=== PATIENT | female | born 1970 | race Caucasian/White ===

== ENCOUNTER 2017-03-27 10:07 | Inpatient (IN) | payer MEDICAID, MEDICARE ==
[2017-03-27] MEDS ORDERED: NORMAL SALINE 1000 ML 1,000 ML IV ONE (11:44)
--- NOTE | 2017-03-27 11:48 | ER Document Report ---
ED Head/Face/Scalp Injury - General Chief Complaint: Facial Injury Stated Complaint: ALTERED MENTAL STATUS Time Seen by Provider: 03/27/17 11:02 Notes: The patient is a 46-year-old female, past medical history chronic alcoholism ( drinks 0.5 gallons of whiskey a day), presents by EMS after she tripped last night while drinking, fell and hit her face. Her woke up this morning, saw bleeding from her nose and mouth and called 911. Patient is altered and slow to respond. She is also feeling tremulous. Patient is a poor historian and unable to provide any additional history. TRAVEL OUTSIDE OF THE [place] 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 Denies: Hx Hiatal Hernia, Hx Pancreatitis, Hx Ulcer Musculoskeltal Medical History: Denies Hx Arthritis Psychiatric Medical History: Reports: Hx Depression Denies: Hx Bipolar Disorder, Hx Schizophrenia Traumatic Medical History: Reports: Hx Fractures - R. leg. Pt. has a steel debi. Past Surgical History: Reports: Hx Appendectomy, Hx Cholecystectomy, Hx Orthopedic Surgery - right knee, Hx Tonsillectomy, Hx Tubal Ligation. Denies: Hx Bowel Surgery, Hx Section, Hx Hysterectomy, Hx Mastectomy - Immunizations Hx Diphtheria, Pertussis, Tetanus Vaccination: No Hx Pneumococcal Vaccination: 05/05/11 Review of Systems - Review of Systems -: Yes ROS unobtainable due to patient's medical condition Physical Exam - Vital signs Vitals: Pulse Ox 92 03/27/17 10:28 - Notes Notes: PHYSICAL EXAMINATION: GENERAL: Confused, tachypneic, tremulous HEAD: Atraumatic, normocephalic. EYES: Pupils equal round and reactive to light, extraocular movements intact, sclera anicteric, conjunctiva are normal. ENT: nares patent, oropharynx clear without exudates. Moist mucous membranes. NECK: Normal range of motion, supple without lymphadenopathy LUNGS: Tachypneic, Crackles in left lower lung gutierrez. HEART: Tachycardia, regular rhythm ABDOMEN: Soft, nontender, normoactive bowel sounds. No guarding, no rebound. No masses appreciated. EXTREMITIES: Normal range of motion, no pitting or edema. No cyanosis. NEUROLOGICAL: Confused, slow to respond, alert and oriented x2, tremors present SKIN: Warm, Dry, normal turgor, no rashes or lesions noted. Course - Re-evaluation Re-evalutation: Patient appears confused with tachycardia and hypertension. She says that she normally drinks a heavy amount of alcohol daily. Her alcohol is negative this morning. CT head and face do not show any acute bleeds or fractures. Her CIWA score is 16. She was given Ativan with some relief of her tremors. Patient also with a left lower lobe pneumonia, leukocytosis and tachypnea, but no hypoxia. CAP Abx started and she does not require 30 mL/kg because she is not in septic shock, With patient's elevated CIWA score, pneumonia and AMS, she requires inpatient admission for further evaluation and treatment of her AMS and alcohol withdrawal symptoms. 03/27/17 15:[address] Clayton and will admit patient to [facility] as Inpatient. - Vital Signs Vital signs: Temp Pulse Resp BP Pulse Ox 98.3 F 40 H 154/103 H 94 03/27/17 13:47 03/27/17 13:47 03/27/17 13:47 03/27/17 13:47 - Laboratory Result Diagrams: 03/27/17 10:49 03/27/17 10:49 Laboratory results interpreted by me: 03/27/17 03/27/17 03/27/17 10:49 10:49 13:13 WBC 19.8 H MCH 33.8 H Seg Neutrophils % 83.2 H Lymphocytes % 11.5 L Absolute Neutrophils 16.5 H Potassium 2.8 L* Glucose 127 H Direct Bilirubin 0.5 H AST 113 H ALT 59 H Urine Protein >=500 H Urine Ketones TRACE H Urine Blood MODERATE H Urine Urobilinogen 2.0 H Ur Leukocyte Esterase TRACE H - Diagnostic Test Radiology reviewed: Image reviewed, Reports reviewed Radiology results interpreted by me: CXR: Left lower lobe pneumonia. Widened mediastinum most likely related to technique Critical Care Note - Critical Care Note Total time excluding time spent on procedures (mins): 35 Discharge - Discharge Clinical Impression: Alcohol withdrawal delirium, Hypokalemia Pneumonia Qualifiers: Pneumonia type: due to unspecified organism Laterality: left Lung location: lower lobe of lung Qualified Code(s): J18.1 - Lobar pneumonia, unspecified organism Altered mental status Qualifiers: Altered mental status type: unspecified Qualified Code(s): R41.82 - Altered mental status, unspecified Sepsis Qualifiers: Sepsis type: sepsis due to unspecified organism Qualified Code(s): A41.9 - Sepsis, unspecified organism Contusion of face Qualifiers: Encounter type: initial encounter Qualified Code(s): S00.83XA - Contusion of other part of head, initial encounter Condition: Stable Disposition: ADMITTED INPATIENT Admitting Provider: [facility] [place] [facility] Admitted: I[facility]U Referrals: BERNIE SAVAGE MD [Primary Care Provider] - Follow up as needed
--- NOTE | 2017-03-27 11:53 | RADIOLOGY REPORT (SQ) ---
EXAM DESCRIPTION: CT HEAD WITHOUT COMPLETED DATE/TIME: 03/27/2017 11:32 am REASON FOR STUDY: fall, AMS COMPARISON: [address] brain exams since 01/05/2009, most recently 06/05/2015 TECHNIQUE: Axial images acquired through the brain without intravenous contrast. Images reviewed wi th bone, brain and subdural windows. Images stored on PACS. All CT scanners at this facility use dose modulation, iterative reconstruction, and/or weight based d osing when appropriate to reduce radiation dose to as low as reasonably achievable (ALARA). [facility]: Dose Right [facility]: CareDose [facility]: Dose Right [facility]: Teradose 4D [facility]: Smart [employer] RADIATION DOSE: CT Rad equipment meets quality standard of care and radiation dose reduction techniq ues were employed. CTDIvol: 64.6 mGy. DLP: 1163 mGy-cm. mGy. LIMITATIONS: None. FINDINGS: VENTRICLES: Normal size and contour. CEREBRUM: No masses. No hemorrhage. No midline shift. No evidence for acute infarction. Normal gra y/white matter differentiation. No areas of low density in the white matter. CEREBELLUM: No masses. No hemorrhage. No alteration of density. No evidence for acute infarction. EXTRAAXIAL SPACES: No fluid collections. No masses. ORBITS AND GLOBE: No intra- or extraconal masses. Normal contour of globe without masses. CALVARIUM: No fracture. PARANASAL SINUSES: Mucus or serous retention cyst right maxillary sinus SOFT TISSUES: No mass or hematoma. OTHER: No other significant finding. IMPRESSION: NORMAL BRAIN CT WITHOUT CONTRAST. EVIDENCE OF ACUTE STROKE: NO. COMMENT: Quality ID # [id number]: Final reports with documentation of one or more dose reduction techniques (e.g., Automated exposure control, adjustment of the mA and/or kV according to patient size, use of iterative reconstruction technique) TECHNICAL DOCUMENTATION: JOB ID: [id number] [employer]- All Rights Reserved
[2017-03-27 11:55] LABS: ABSOLUTE BASOPHILS # (AUTO) 0.1 10^3/uL (0.0-0.2); ABSOLUTE LYMPHOCYTES (AUTO) 2.3 10^3/uL (0.5-4.7); ABSOLUTE NEUT (AUTO) 16.5 10^3/uL (1.7-8.2); BASOPHILS % (AUTO) 0.4 % (0-2); EOSINOPHILS % (AUTO) 0.1 % (0-6); HEMATOCRIT 41.4 % (36.0-47.0); HEMOGLOBIN 14.5 g/dL (12.0-15.5); LYMPHOCYTES % (AUTO) 11.5 % (13-45); MEAN CORPUSCULAR HEMOGLOBIN 33.8 pg (27.0-33.4); MEAN CORPUSCULAR HGB CONC 35.1 g/dL (32.0-36.0); MEAN CORPUSCULAR VOLUME 96 fl (80-97); MONOCYTES % (AUTO) 4.8 % (3-13); PLATELET COUNT 248 10^3/uL (150-450); RED CELL DISTRIBUTION WIDTH 13.4 % (11.5-14.0); SEGMENTED NEUTROPHILS % (AUTO) 83.2 % (42-78); TOTAL CELLS COUNTED % (AUTO) 100 %; WHITE BLOOD COUNT 19.8 10^3/uL (4.0-10.5)
--- NOTE | 2017-03-27 11:56 | RADIOLOGY REPORT (SQ) ---
EXAM DESCRIPTION: CT FACIAL AREA WITHOUT COMPLETED DATE/TIME: 03/27/2017 11:32 am REASON FOR STUDY: fall, AMS COMPARISON: Multiple previous CT brain exams since 2008, most recently today TECHNIQUE: Noncontrasted images through the facial bones and orbits windowed for bone and soft tissu e. Additional coronal and sagittal reconstructed images reviewed. All images stored on PACS. All CT scanners at this facility use dose modulation, iterative reconstruction, and/or weight based d osing when appropriate to reduce radiation dose to as low as reasonably achievable (ALARA). [facility]: Dose Right [facility]: CareDose [facility]: Dose Right [facility]: Teradose 4D [facility]: Smart [employer] RADIATION DOSE: CT Rad equipment meets quality standard of care and radiation dose reduction techniq ues were employed. CTDIvol: 30.4 mGy. DLP: 522 mGy-cm. mGy. LIMITATIONS: None. FINDINGS: FACIAL BONES: No fracture or bone lesion. ORBITS: Intact. No fracture. Symmetric intact globes and retroorbital soft tissues. PARANASAL SINUSES: Mucus or serous retention cyst floor right maxillary sinus No nasal polyps. Maxil jake sinus outlets are patent. SOFT TISSUES: No mass or edema. INFERIOR BRAIN: Limited view. No acute findings. OTHER: No other significant finding. IMPRESSION: NO ACUTE FINDINGS. TECHNICAL DOCUMENTATION: JOB ID: [id number] Quality ID # [id number]: Final reports with documentation of one or more dose reduction techniques (e.g., Au tomated exposure control, adjustment of the mA and/or kV according to patient size, use of iterative reconstruction technique) 2010 [employer]- All Rights Reserved
[2017-03-27 12:20] LABS: ALANINE AMINOTRANSFERASE 59 U/L (9-52); ALBUMIN 3.8 g/dL (3.5-5.0); ALCOHOL < 10 mg/dL (NONE DETECTED); ALKALINE PHOSPHATASE 83 U/L (38-126); ANION GAP 14 (5-19); ASPARTATE AMINO TRANSFERASE 113 U/L (14-36); BILIRUBIN,DIRECT 0.5 mg/dL (0.0-0.4); BILIRUBIN,TOTAL 0.9 mg/dL (0.2-1.3); BLOOD UREA NITROGEN 15 mg/dL (7-20); CALCIUM 8.8 mg/dL (8.4-10.2); CARBON DIOXIDE 28 mmol/L (22-30); CHLORIDE 98 mmol/L (98-107); GLUCOSE 127 mg/dL (75-110); SODIUM 139.7 mmol/L (137-145); TOTAL PROTEIN 7.8 g/dL (6.3-8.2)
[2017-03-27 12:26] LABS: POTASSIUM 2.8 mmol/L (3.6-5.0)
[2017-03-27 12:45] LABS: VENOUS BLOOD BASE EXCESS 1.7 mmol/L; VENOUS BLOOD HCO3 26.5 mmol/L (20-32); VENOUS BLOOD PCO2 42.7 mmHg (35-63); VENOUS BLOOD PH 7.41 (7.30-7.42)
[2017-03-27] MEDS ORDERED: LORAZEPAM INJ 2 MG/1 ML VIAL IV ONE ×2 (13:13→16:15)
[2017-03-27 13:34] LABS: APPEARANCE,URINE CLOUDY; BILIRUBIN,URINE NEGATIVE (NEGATIVE); COLOR,URINE AMBER; GLUCOSE, URINE NEGATIVE (NEGATIVE); KETONES,URINE TRACE mg/dL (NEGATIVE); LEUKOCYTE ESTERASE,URINE TRACE (NEGATIVE); NITRITE,URINE NEGATIVE (NEGATIVE); PROTEIN,URINE >=500 mg/dL (NEGATIVE); URINE SPECIFIC GRAVITY 1.019
[2017-03-27 13:52] LABS: URINE AMPHETAMINES SCREEN NEGATIVE; URINE BARBITURATES SCREEN NEGATIVE; URINE BENZODIAZEPINES SCREEN UNCONFIRMED POSITIVE; URINE COCAINE SCREEN NEGATIVE; URINE MARIJUANA (THC) SCREEN NEGATIVE; URINE METHADONE SCREEN NEGATIVE; URINE PHENCYCLIDINE SCREEN NEGATIVE
[2017-03-27] MEDS: POTASSI CL 20 MEQ/50 ML RIDER 20 MEQ/50 ML RTUPB IV SCH ×4 (14:07→23:02)
[2017-03-27] MEDS ORDERED: CEFTRIAXONE 1 GM/D5W RTU 1 GM/50 ML RTUPB IV ONE (14:18)
--- NOTE | 2017-03-27 15:07 | RADIOLOGY REPORT (SQ) ---
EXAM DESCRIPTION: CHEST SINGLE VIEW COMPLETED DATE/TIME: 03/27/2017 2:42 pm REASON FOR STUDY: sepsis, tachypnea COMPARISON: 06/06/2015 NUMBER OF VIEWS: One view. TECHNIQUE: Single frontal radiographic image of the chest acquired. LIMITATIONS: Poor inspiratory effort. Positioning. FINDINGS: LUNGS AND PLEURA: Subsegmental airspace disease in the left lower lobe. MEDIASTINUM AND HEART: Widening of the mediastinum which is most likely due to technique and low lung volumes. BONY STRUCTURES: No acute findings. HARDWARE: None. OTHER: No other significant finding. IMPRESSION: Left lower lobe pneumonia. Widening of the mediastinum is likely secondary to technique . TECHNICAL DOCUMENTATION: JOB ID: [id number]
[2017-03-27] MEDS ORDERED: AZITHROMYCIN INJ 500 MG VIAL IV ONE (15:10)
[2017-03-27] MEDS ORDERED: CEFTRIAXONE SODIUM 1,000 MG in NORMAL SALINE 50 ML IV ONE (16:00)
[2017-03-27] MEDS ORDERED: DEXTROSE 40% GEL 15 GM TUBE PO PRN ×2 (16:50)
[2017-03-27] MEDS ORDERED: IPRATROPIUM/ALBUTEROL 0.5-2.5 MG/3 ML AMPUL NEB PRN (16:50)
[2017-03-27] MEDS ORDERED: DEXTROSE 50%-WATER 25 GM/50 ML DISP.SYRIN IV PRN ×2 (16:50)
[2017-03-27] MEDS ORDERED: GLUCAGON,HUMAN RECOMB 1 MG INJ SUBCUT PRN (16:50)
[2017-03-27] MEDS ORDERED: ONDANSETRON 4 MG TAB.RAPDIS PO PRN (16:50)
[2017-03-27] MEDS ORDERED: ALBUTEROL SULFATE HFA (90 MCG/PUFF) 200 PUFF/8.5 GM MDI IH PRN (17:53)
--- NOTE | 2017-03-27 17:53 | RADIOLOGY REPORT (SQ) ---
EXAM DESCRIPTION: CT CHEST WITHOUT COMPLETED DATE/TIME: 03/27/2017 5:38 pm REASON FOR STUDY: Respiratory Failure COMPARISON: Chest radiograph, CT 2012. TECHNIQUE: CT scan performed of the chest without intravenous contrast. Images reviewed with lung, soft tissue and bone windows. Reconstructed coronal and sagittal MPR images reviewed. All images st ored on PACS. All CT scanners at this facility use dose modulation, iterative reconstruction, and/or weight based d osing when appropriate to reduce radiation dose to as low as reasonably achievable (ALARA). [facility]: Dose Right [facility]: CareDose [facility]: Dose Right [facility]: Teradose 4D [facility]: [employer] RADIATION DOSE: CT Rad equipment meets quality standard of care and radiation dose reduction techniq ues were employed. CTDIvol: 19.6 mGy. DLP: 713 mGy-cm. mGy. LIMITATIONS: No technical limitations. FINDINGS: LUNGS AND PLEURA: Parenchymal opacity in the right upper lobe with air bronchograms most l ikely infiltrate. Minimal basilar infiltrates bilateral. No effusions. HILAR AND MEDIASTINAL STRUCTURES: No identified masses or abnormal nodes. No obvious aneurysm. HEART AND VASCULAR STRUCTURES: No aneurysm. No pericardial effusion. UPPER ABDOMEN: No significant findings. Limited exam. THYROID AND OTHER SOFT TISSUES: No masses. No adenopathy. BONES: No significant finding. HARDWARE: None in the chest. OTHER: No other significant findings. IMPRESSION: Right upper lobe and bibasilar pneumonia. TECHNICAL DOCUMENTATION: JOB ID: [id number] Quality ID # [id number]: Final reports with documentation of one or more dose reduction techniques (e.g., Au tomated exposure control, adjustment of the mA and/or kV according to patient size, use of iterative reconstruction technique) 2010 [employer]- All Rights Reserved
--- NOTE | 2017-03-27 17:55 | PDOC H&P ---
History of Present Illness Admission Date/PCP: 03/27/17 15:45 BERNIE SAVAGE MD Patient complains of: Patient found intoxicated and brought in by family History of Present Illness: FABIANA HEAD is a 46 year old female presents to the emergency room after family bring in patient and due to be in intoxicated and not feeling well. Patient during my encounter was not able to give complete history appear to be intoxicated. Patient reports that she has not been feeling well and has fever. Patient then fell back to sleep on awakening patient would try to give history but not able to understand. Nursing reports the patient fell at home and has injured her left ankle. 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, Hypertension Denies: Atrial Fibrillation, Congestive Heart Failure, Hyperlipidema, Heart Murmur Pulmonary Medical History: Reports: Asthma, Chronic Obstructive Pulmonary Disease (COPD) Denies: Bronchitis, Pneumonia, Respiratory Failure, Sleep Apnea, Tuberculosis Neurological Medical History: Reports: Seizures GI Medical History: Reports: Gastroesophageal Reflux Disease Denies: Hiatal Hernia Musculoskeltal Medical History: Denies: Arthritis Psychiatric Medical History: Reports: Depression Denies: Bipolar Disorder Past Surgical History Past Surgical History: Reports: Appendectomy, Cholecystectomy, Orthopedic Surgery - right knee, Tonsillectomy, Tubal Ligation Denies: Amputation, Section, Hysterectomy, Mastectomy Social History Information Source: Patient, Emergency Med Personnel Lives with: Family Smoking Status: Unknown if Ever Smoked Frequency of Alcohol Use: Occasional Hx Recreational Drug Use: No Hx Prescription Drug Abuse: No - Advance Directive Resuscitation Status: Full Code Family History Family History: Reviewed & Not Pertinent Parental Family History Reviewed: No Children Family History Reviewed: No Sibling(s) Family History Reviewed.: No Medication/Allergy Home Medications: Albuterol Sulfate [Proair HFA Inhalation Aerosol 8.5 gm MDI] 2 puff IH Q6HP PRN 03/27/17 Alprazolam [Xanax 0.5 mg Tablet] 0.5 mg PO Q8HP PRN 03/27/17 Clonidine HCl [Catapres 0.1 mg Tablet] 0.1 mg PO Q12 03/27/17 Hydrochlorothiazide [Hydrodiuril 25 mg Tablet] 25 mg PO DAILY 03/27/17 Levothyroxine Sodium [Synthroid 0.088 mg Tablet] 0.088 mg PO Q6AM 03/27/17 Lurasidone HCl [Latuda] 20 mg PO [id number] 03/27/17 Sertraline HCl [Zoloft] 150 mg PO DAILY 03/27/17 Allergies/Adverse Reactions: No Known Allergies Allergy (Verified 06/08/14 00:01) Review of Systems ROS unobtainable: Due to mental status Constitutional: PRESENT: fever(s) Respiratory: PRESENT: cough Musculoskeletal: PRESENT: other - Left ankle pain Physical Exam Vital Signs: Temp Pulse Resp BP Pulse Ox 98.3 F 42 H 164/110 H 92 03/27/17 13:47 03/27/17 15:01 03/27/17 15:01 03/27/17 15:01 General appearance: PRESENT: mild distress, morbidly obese, well-nourished Head exam: PRESENT: atraumatic, normocephalic Eye exam: PRESENT: conjunctiva pink, EOMI. ABSENT: scleral icterus Ear exam: PRESENT: normal external ear exam Mouth exam: PRESENT: moist, tongue midline Neck exam: ABSENT: carotid bruit, JVD, lymphadenopathy, thyromegaly Respiratory exam: PRESENT: accessory muscle use, wheezes. ABSENT: rales, rhonchi Cardiovascular exam: PRESENT: RRR. ABSENT: diastolic murmur, rubs, systolic murmur Pulses: PRESENT: normal dorsalis pedis pul Vascular exam: PRESENT: normal capillary refill GI/Abdominal exam: PRESENT: normal bowel sounds, soft. ABSENT: distended, guarding, mass, organolmegaly, rebound, tenderness Rectal exam: PRESENT: deferred Extremities exam: PRESENT: other - Left Ankle swelling with tenderness to palpation. ABSENT: calf tenderness, clubbing, pedal edema Musculoskeletal exam: PRESENT: tenderness - Left ankle tenderness Neurological exam: PRESENT: altered. ABSENT: motor sensory deficit Psychiatric exam: PRESENT: other - Sleeping will open eyes when stimulated Skin exam: PRESENT: other - 2 abrasions noted on left side of face Results Impressions: Facial Bones CT 03/27/17 11:02 IMPRESSION: NO ACUTE FINDINGS. Head CT 03/27/17 11:02 IMPRESSION: NORMAL BRAIN CT WITHOUT CONTRAST. EVIDENCE OF ACUTE STROKE: NO. Chest X-Ray 03/27/17 14:19 IMPRESSION: Left lower lobe pneumonia. Widening of the mediastinum is likely secondary to technique. Assessment & Plan - Diagnosis (1) Sepsis Qualifiers: Sepsis type: sepsis due to unspecified organism Qualified Code(s): A41.9 - Sepsis, unspecified organism Is this a current diagnosis for this admission?: Yes Plan: (Pneumonia, tachypnea, tachycardia, elevated white blood cell count, and altered mental status). Secondary Aspiriation Pneumonia: Zosyn. Will check CT of Chest. (2) Acute metabolic encephalopathy Is this a current diagnosis for this admission?: Yes Plan: Secondary to ETOH Withdrawal and Sepsis: Will continue supportive care. Ammonia. (3) Alcohol withdrawal delirium Is this a current diagnosis for this admission?: Yes Plan: Will place on Ativan and Rally bag. (4) Left ankle pain Qualifiers: Chronicity: acute Qualified Code(s): M25.572 - Pain in left ankle and joints of left foot Is this a current diagnosis for this admission?: Yes Plan: Will check x-ray of ankle. (5) Hypokalemia Is this a current diagnosis for this admission?: Yes Plan: Patient given potassium replacement in the ER will check potassium in a.m. and magnesium as well. (6) Pneumonia Qualifiers: Pneumonia type: due to unspecified organism Laterality: left Lung location: lower lobe of lung Qualified Code(s): J18.1 - Lobar pneumonia, unspecified organism Is this a current diagnosis for this admission?: Yes Plan: Continue Zosyn (7) Fall Qualifiers: Encounter type: initial encounter Qualified Code(s): W19.XXXA - Unspecified fall, initial encounter Is this a current diagnosis for this admission?: Yes Plan: Patient work with PT OT (8) Leukocytosis Is this a current diagnosis for this admission?: Yes Plan: Secondary to Sepsis: Zosyn. (9) Elevated LFTs Is this a current diagnosis for this admission?: Yes Plan: Secondary ETOH: U/S of ABD. Will continue monitor. (10) DVT prophylaxis Is this a current diagnosis for this admission?: Yes Plan: SCDs - Time Time Spent: 30 to 50 Minutes
--- NOTE | 2017-03-27 17:57 | RADIOLOGY REPORT (SQ) ---
EXAM DESCRIPTION: ANKLE LEFT COMPLETE COMPLETED DATE/TIME: 03/27/2017 5:49 pm REASON FOR STUDY: left ankle pain COMPARISON: May 2014 NUMBER OF VIEWS: Three views. TECHNIQUE: AP, lateral, and oblique radiographic images acquired of the left ankle. LIMITATIONS: None. FINDINGS: MINERALIZATION: Normal. BONES: No acute fracture or dislocation. Small bony protuberance is identified at the level of the m edial malleolus which was present on the previous study and could represent a tiny osteo chondroma. JOINTS: No effusions. SOFT TISSUES: Soft tissue swelling is seen OTHER: Plantar spurring is again identified IMPRESSION: No acute fracture dislocation. Other findings as noted above TECHNICAL DOCUMENTATION: JOB ID: [id number] [employer]- All Rights Reserved
[2017-03-27 19:06] LABS: ARTERIAL BLOOD BASE EXCESS 4.7 mmol/L; ARTERIAL BLOOD H2CO3 1.02 mmol/L (1.05-1.35); ARTERIAL BLOOD HCO3 27.3 mmol/L (20-26); ARTERIAL BLOOD O2 SATURATION 96.7 % (94-98); ARTERIAL BLOOD PCO2 33.8 mmHg (35-45); ARTERIAL BLOOD PH 7.53 (7.35-7.45); ARTERIAL BLOOD PO2 77.9 mmHg (80-100); ARTERIAL BLOOD TOTAL CO2 28.3 mmol/L (21-25)
[2017-03-27 19:07] LABS: ARTERIAL BLOOD FIO2 2
[2017-03-27] MEDS ORDERED: NORMAL SALINE 1000 ML 1,000 ML with POTASSIUM CHLORIDE 20 MEQ, MAGNESIUM SULFATE 8 MEQ,... IV SCH ×5 (20:00)
[2017-03-27] MEDS: PIPERACILLIN SODIUM/TAZOBACTAM 3.375 GM in NORMAL SALINE 100 ML IV SCH ×2 (20:42→23:13)
[2017-03-27] MEDS: CLONIDINE HCL 0.1 MG TABLET PO SCH (21:37)
[2017-03-27] MEDS: LORAZEPAM INJ 2 MG/1 ML VIAL IV PRN (22:26)
--- NOTE | 2017-03-27 22:48 | EKG REPORT ---
SEVERITY:- ABNORMAL ECG - SINUS TACHYCARDIA BORDERLINE INFERIOR Q WAVES ABNORMAL T, CONSIDER ISCHEMIA, DIFFUSE LEADS : Confirmed by: Hudson Alegria 27-Mar-2017 22:47:53
[2017-03-28] MEDS: NORMAL SALINE 1000 ML 1,000 ML with POTASSIUM CHLORIDE 20 MEQ, MAGNESIUM SULFATE 8 MEQ,... IV SCH ×10 (01:10→22:53)
[2017-03-28] MEDS: NORMAL SALINE 1000 ML 1,000 ML IV PRN (01:12)
[2017-03-28] MEDS: LORAZEPAM INJ 2 MG/1 ML VIAL IV PRN (02:07)
[2017-03-28] MEDS: LEVOTHYROXINE SODIUM 0.088 MG TABLET PO SCH (05:35)
[2017-03-28] MEDS: PIPERACILLIN SODIUM/TAZOBACTAM 3.375 GM in NORMAL SALINE 100 ML IV SCH ×3 (05:43→18:16)
[2017-03-28] MEDS: LANSOPRAZOLE 15 MG TAB.RAP.DR PO SCH (05:43)
[2017-03-28 07:39] LABS: ABSOLUTE BASOPHILS # (AUTO) 0.1 10^3/uL (0.0-0.2); ABSOLUTE EOSINOPHILS # (AUTO) 0.1 10^3/uL (0.0-0.6); ABSOLUTE LYMPHOCYTES (AUTO) 1.5 10^3/uL (0.5-4.7); ABSOLUTE MONOCYTES (AUTO) 0.8 10^3/uL (0.1-1.4); ABSOLUTE NEUT (AUTO) 9.5 10^3/uL (1.7-8.2); BASOPHILS % (AUTO) 0.8 % (0-2); EOSINOPHILS % (AUTO) 1.1 % (0-6); HEMATOCRIT 34.8 % (36.0-47.0); LYMPHOCYTES % (AUTO) 12.7 % (13-45); MEAN CORPUSCULAR HEMOGLOBIN 33.8 pg (27.0-33.4); MEAN CORPUSCULAR HGB CONC 34.7 g/dL (32.0-36.0); MEAN CORPUSCULAR VOLUME 98 fl (80-97); PLATELET COUNT 177 10^3/uL (150-450); RED BLOOD COUNT 3.57 10^6/uL (3.72-5.28); RED CELL DISTRIBUTION WIDTH 13.5 % (11.5-14.0); SEGMENTED NEUTROPHILS % (AUTO) 78.4 % (42-78); TOTAL CELLS COUNTED % (AUTO) 100 %; WHITE BLOOD COUNT 12.1 10^3/uL (4.0-10.5)
[2017-03-28 07:45] LABS: HEMOGLOBIN 12.1 g/dL (12.0-15.5)
[2017-03-28 07:57] LABS: ALANINE AMINOTRANSFERASE 50 U/L (9-52); ALBUMIN 2.9 g/dL (3.5-5.0); ALKALINE PHOSPHATASE 62 U/L (38-126); ANION GAP 6 (5-19); ASPARTATE AMINO TRANSFERASE 76 U/L (14-36); BILIRUBIN,DIRECT 0.5 mg/dL (0.0-0.4); BLOOD UREA NITROGEN 13 mg/dL (7-20); CALCIUM 7.3 mg/dL (8.4-10.2); CARBON DIOXIDE 26 mmol/L (22-30); CHLORIDE 110 mmol/L (98-107); GLUCOSE 106 mg/dL (75-110); POTASSIUM 3.1 mmol/L (3.6-5.0); SODIUM 141.5 mmol/L (137-145); TOTAL PROTEIN 6.1 g/dL (6.3-8.2)
[2017-03-28] MEDS ORDERED: (PENDING PHARMACY ID) (Lurasidone Hcl [Latuda] 20 MG) PO SCH (08:00)
[2017-03-28 08:07] LABS: MAGNESIUM 1.1 mg/dL (1.6-2.3)
[2017-03-28] MEDS ORDERED: POTASSIUM CHLORIDE 20 MEQ/15 ML UDCUP PO ONE ×2 (09:30→20:15)
[2017-03-28] MEDS ORDERED: CEFTRIAXONE 1 GM/D5W RTU 1 GM/50 ML RTUPB IV SCH (10:00)
[2017-03-28] MEDS: SERTRALINE HCL 50 MG TABLET PO SCH (10:05)
[2017-03-28] MEDS: LURASIDONE HCL 40 MG TABLET PO SCH (10:06)
[2017-03-28] MEDS: CLONIDINE HCL 0.1 MG TABLET PO SCH ×2 (10:06→22:53)
[2017-03-28] MEDS: MAGNESIUM SULFATE/D5W 1 GM/100 ML RTUPB IV SCH ×3 (10:07→14:31)
[2017-03-28 17:38] LABS: ANION GAP 9 (5-19); BLOOD UREA NITROGEN 11 mg/dL (7-20); CALCIUM 7.4 mg/dL (8.4-10.2); CARBON DIOXIDE 25 mmol/L (22-30); CHLORIDE 109 mmol/L (98-107); GLUCOSE 117 mg/dL (75-110); POTASSIUM 3.3 mmol/L (3.6-5.0); SODIUM 142.7 mmol/L (137-145)
[2017-03-28 17:46] LABS: MAGNESIUM 2.1 mg/dL (1.6-2.3)
[2017-03-28] MEDS ORDERED: CEFTRIAXONE SODIUM 1,000 MG in NORMAL SALINE 50 ML IV SCH (18:00)
[2017-03-28] MEDS ORDERED: AZITHROMYCIN 500 MG in DEXTROSE 5%-WATER 250 ML IV SCH (20:00)
--- NOTE | 2017-03-28 20:05 | PDOC PROGRESS REPORT ---
Subjective Progress Note for:: 03/28/17 Subjective:: Pt states that she has been feeling better. Nursing states that she is concerned about her swallowing. Nursing reported that pt Magnesium and potassium is low. Reason For Visit: ASPIRATION PNEUMONIA,ETOH WITHDRAWAL Physical Exam Vital Signs: Temp Pulse Resp BP Pulse Ox 99.0 F 85 22 H 144/93 H 99 03/28/17 16:09 03/28/17 16:09 03/28/17 16:09 03/28/17 16:09 03/28/17 16:09 Intake & Output 03/27/17 03/28/17 03/29/17 06:59 06:59 06:59 Intake Total 353 1500 Output Total 300 950 Balance 53 550 Weight 102.4 kg General appearance: PRESENT: disheveled, morbidly obese, well-developed, well- nourished Head exam: PRESENT: atraumatic, normocephalic Eye exam: PRESENT: conjunctiva pink, EOMI. ABSENT: scleral icterus Ear exam: PRESENT: normal external ear exam Mouth exam: PRESENT: moist, tongue midline Neck exam: ABSENT: carotid bruit, JVD, lymphadenopathy, thyromegaly Respiratory exam: PRESENT: clear to auscultation thomas. ABSENT: rales, rhonchi, wheezes Cardiovascular exam: PRESENT: RRR. ABSENT: diastolic murmur, rubs, systolic murmur Pulses: PRESENT: normal dorsalis pedis pul Vascular exam: PRESENT: normal capillary refill GI/Abdominal exam: PRESENT: normal bowel sounds, soft. ABSENT: distended, guarding, mass, organolmegaly, rebound, tenderness Rectal exam: PRESENT: deferred Extremities exam: PRESENT: full ROM. ABSENT: calf tenderness, clubbing, pedal edema Musculoskeletal exam: PRESENT: full ROM Neurological exam: PRESENT: awake, oriented to person Psychiatric exam: PRESENT: flat affect Skin exam: PRESENT: dry, intact, warm. ABSENT: cyanosis, rash Results Laboratory Results: 03/28/17 07:13 03/28/17 17:00 03/28/17 03/28/17 03/28/17 07:13 07:13 07:13 WBC 12.1 H RBC 3.57 L Hgb 12.1 D Hct 34.8 L MCV 98 H MCH 33.8 H MCHC 34.7 RDW 13.5 Plt Count 177 Seg Neutrophils % 78.4 H Lymphocytes % 12.7 L Monocytes % 7.0 Eosinophils % 1.1 Basophils % 0.8 Absolute Neutrophils 9.5 H Absolute Lymphocytes 1.5 Absolute Monocytes 0.8 Absolute Eosinophils 0.1 Absolute Basophils 0.1 Sodium 141.5 Potassium 3.1 L Chloride 110 H Carbon Dioxide 26 Anion Gap 6 BUN 13 Creatinine 0.59 Est GFR ( Amer) > 60 Est GFR (Non-Af Amer) > 60 Glucose 106 Calcium 7.3 L Magnesium 1.1 L* Total Bilirubin 1.0 AST 76 H ALT 50 Alkaline Phosphatase 62 Ammonia 15.9 Total Protein 6.1 L Albumin 2.9 L 03/28/17 17:00 WBC RBC Hgb Hct MCV MCH MCHC RDW Plt Count Seg Neutrophils % Lymphocytes % Monocytes % Eosinophils % Basophils % Absolute Neutrophils Absolute Lymphocytes Absolute Monocytes Absolute Eosinophils Absolute Basophils Sodium 142.7 Potassium 3.3 L Chloride 109 H Carbon Dioxide 25 Anion Gap 9 BUN 11 Creatinine 0.51 L Est GFR ( Amer) > 60 Est GFR (Non-Af Amer) > 60 Glucose 117 H Calcium 7.4 L Magnesium 2.1 D Total Bilirubin AST ALT Alkaline Phosphatase Ammonia Total Protein Albumin Impressions: Ankle X-Ray 03/27/17 00:00 IMPRESSION: No acute fracture dislocation. Other findings as noted above Chest CT 03/27/17 00:00 IMPRESSION: Right upper lobe and bibasilar pneumonia. Facial Bones CT 03/27/17 11:02 IMPRESSION: NO ACUTE FINDINGS. Head CT 03/27/17 11:02 IMPRESSION: NORMAL BRAIN CT WITHOUT CONTRAST. EVIDENCE OF ACUTE STROKE: NO. Chest X-Ray 03/27/17 14:19 IMPRESSION: Left lower lobe pneumonia. Widening of the mediastinum is likely secondary to technique. Assessment & Plan - Diagnosis (1) Sepsis Qualifiers: Sepsis type: sepsis due to unspecified organism Qualified Code(s): A41.9 - Sepsis, unspecified organism Is this a current diagnosis for this admission?: Yes Plan: (Pneumonia, tachypnea, tachycardia, elevated white blood cell count, and altered mental status). Secondary Aspiriation Pneumonia: Zosyn. CT demonstrated the patient has a right upper lobe infiltrate and basilar infiltrate bilaterally. (2) Acute metabolic encephalopathy Is this a current diagnosis for this admission?: Yes Plan: Secondary to ETOH Withdrawal and Sepsis: Will continue supportive care. (3) Alcohol withdrawal delirium Is this a current diagnosis for this admission?: Yes Plan: Ativan and Rally bag. (4) Left ankle pain Qualifiers: Chronicity: acute Qualified Code(s): M25.572 - Pain in left ankle and joints of left foot Is this a current diagnosis for this admission?: Yes Plan: Secondary to strain: X-ray demonstrates no fractures or dislocation (5) Hypokalemia Is this a current diagnosis for this admission?: Yes Plan: Patient given potassium replacement (6) Pneumonia Qualifiers: Pneumonia type: due to unspecified organism Laterality: left Lung location: lower lobe of lung Qualified Code(s): J18.1 - Lobar pneumonia, unspecified organism Is this a current diagnosis for this admission?: Yes Plan: Secondary to aspirate aspiration pneumonia: continue Zosyn (7) Fall Qualifiers: Encounter type: initial encounter Qualified Code(s): W19.XXXA - Unspecified fall, initial encounter Is this a current diagnosis for this admission?: Yes Plan: OT/PT (8) Leukocytosis Is this a current diagnosis for this admission?: Yes Plan: Secondary to Sepsis: Zosyn. (9) Elevated LFTs Is this a current diagnosis for this admission?: Yes Plan: Secondary ETOH: resolving. (10) Hypomagnesemia Is this a current diagnosis for this admission?: Yes Plan: Patient given 3 g of magnesium (11) Concern for Dysphagia Is this a current diagnosis for this admission?: Yes Plan: Will have Speech evaluate pt. (12) DVT prophylaxis Is this a current diagnosis for this admission?: Yes Plan: SCDs - Time Time Spent with patient: 25-34 minutes
[2017-03-29] MEDS: PIPERACILLIN SODIUM/TAZOBACTAM 3.375 GM in NORMAL SALINE 100 ML IV SCH ×4 (00:53→17:37)
[2017-03-29] MEDS: LORAZEPAM INJ 2 MG/1 ML VIAL IV PRN (00:53)
[2017-03-29] MEDS ORDERED: ALBUTEROL SULFATE HFA (90 MCG/PUFF) 200 PUFF/8.5 GM MDI IH ONE (00:54)
[2017-03-29] MEDS: ACETAMINOPHEN 325 MG TABLET PO PRN (02:54)
[2017-03-29 05:27] LABS: ABSOLUTE BASOPHILS # (AUTO) 0.1 10^3/uL (0.0-0.2); ABSOLUTE EOSINOPHILS # (AUTO) 0.2 10^3/uL (0.0-0.6); ABSOLUTE LYMPHOCYTES (AUTO) 1.8 10^3/uL (0.5-4.7); ABSOLUTE MONOCYTES (AUTO) 0.6 10^3/uL (0.1-1.4); ABSOLUTE NEUT (AUTO) 9.3 10^3/uL (1.7-8.2); BASOPHILS % (AUTO) 0.4 % (0-2); EOSINOPHILS % (AUTO) 1.9 % (0-6); HEMATOCRIT 32.8 % (36.0-47.0); HEMOGLOBIN 11.2 g/dL (12.0-15.5); LYMPHOCYTES % (AUTO) 14.6 % (13-45); MEAN CORPUSCULAR HEMOGLOBIN 33.8 pg (27.0-33.4); MEAN CORPUSCULAR HGB CONC 34.2 g/dL (32.0-36.0); MEAN CORPUSCULAR VOLUME 99 fl (80-97); MONOCYTES % (AUTO) 5.4 % (3-13); PLATELET COUNT 171 10^3/uL (150-450); RED BLOOD COUNT 3.32 10^6/uL (3.72-5.28); RED CELL DISTRIBUTION WIDTH 13.6 % (11.5-14.0); SEGMENTED NEUTROPHILS % (AUTO) 77.7 % (42-78); TOTAL CELLS COUNTED % (AUTO) 100 %
[2017-03-29 05:58] LABS: ALANINE AMINOTRANSFERASE 44 U/L (9-52); ALBUMIN 2.8 g/dL (3.5-5.0); ALKALINE PHOSPHATASE 70 U/L (38-126); ANION GAP 9 (5-19); ASPARTATE AMINO TRANSFERASE 67 U/L (14-36); BILIRUBIN,DIRECT 0.5 mg/dL (0.0-0.4); BILIRUBIN,TOTAL 0.8 mg/dL (0.2-1.3); BLOOD UREA NITROGEN 9 mg/dL (7-20); CARBON DIOXIDE 23 mmol/L (22-30); CHLORIDE 109 mmol/L (98-107); GLUCOSE 94 mg/dL (75-110); MAGNESIUM 1.5 mg/dL (1.6-2.3); POTASSIUM 3.4 mmol/L (3.6-5.0); SODIUM 140.8 mmol/L (137-145); TOTAL PROTEIN 5.9 g/dL (6.3-8.2)
[2017-03-29] MEDS: LEVOTHYROXINE SODIUM 0.088 MG TABLET PO SCH (06:04)
[2017-03-29] MEDS: LANSOPRAZOLE 15 MG TAB.RAP.DR PO SCH (06:04)
[2017-03-29 06:15] LABS: CALCIUM 7.1 mg/dL (8.4-10.2)
--- NOTE | 2017-03-29 08:55 | RADIOLOGY REPORT (SQ) ---
EXAM DESCRIPTION: U/S ABDOMEN LIMITED W/O DOP COMPLETED DATE/TIME: 03/29/2017 5:58 am REASON FOR STUDY: Elevated LFTs COMPARISON: None. TECHNIQUE: Dynamic and static grayscale images acquired of the right upper quadrant and recorded on PACS. Additional selected color Doppler and spectral images recorded. LIMITATIONS: Limited study due to the patient's body habitus, overlying bowel gas, and lack of coope ration. FINDINGS: PANCREAS: Not visualized. LIVER: Diffuse increased echogenicity secondary to fatty infiltration. LIVER VASCULATURE: Normal directional flow of the main portal vein and hepatic veins. GALLBLADDER: Surgically absent. ULTRASOUND-DETECTED PANIAGUA'S SIGN: Negative. INTRAHEPATIC DUCTS AND COMMON DUCT: Poorly visualized. INFERIOR VENA CAVA: Normal flow. AORTA: No aneurysm. Distal aorta not visualized. RIGHT KIDNEY: Normal size. Normal echogenicity. No solid or suspicious masses. No hydronephrosis. No calcifications. PERITONEAL CAVITY AND RIGHT PLEURAL SPACE: No ascites or effusions. OTHER: No other significant finding. IMPRESSION: LIMITED STUDY. FATTY INFILTRATION OF THE LIVER. TECHNICAL DOCUMENTATION: JOB ID: [id number] [employer]- All Rights Reserved
[2017-03-29] MEDS ORDERED: POTASSIUM CHLORIDE 20 MEQ/15 ML UDCUP PO ONE (09:00)
[2017-03-29] MEDS: LURASIDONE HCL 40 MG TABLET PO SCH (10:18)
[2017-03-29] MEDS: MAGNESIUM SULFATE/D5W 1 GM/100 ML RTUPB IV SCH ×3 (10:19→13:06)
[2017-03-29] MEDS: CLONIDINE HCL 0.1 MG TABLET PO SCH ×2 (10:19→23:46)
[2017-03-29] MEDS: SERTRALINE HCL 50 MG TABLET PO SCH (10:19)
[2017-03-29] MEDS: NORMAL SALINE 1000 ML 1,000 ML IV PRN (10:21)
--- NOTE | 2017-03-29 15:18 | PDOC PROGRESS REPORT ---
Subjective Progress Note for:: 03/29/17 Subjective:: Pt states that she would like to eat. Pt states that she is wanting to get up out of bed. Nursing states that pt has been able to take her pills. Reason For Visit: ASPIRATION PNEUMONIA,ETOH WITHDRAWAL Physical Exam Vital Signs: Temp Pulse Resp BP Pulse Ox 97.6 F 87 24 H 115/81 96 03/29/17 12:21 03/29/17 14:07 03/29/17 14:07 03/29/17 12:21 03/29/17 12:21 Intake & Output 03/28/17 03/29/17 03/30/17 06:59 06:59 06:59 Intake Total 353 3703 0 Output Total 300 1400 150 Balance 53 2303 -150 Weight 102.4 kg 99.6 kg General appearance: PRESENT: disheveled, morbidly obese, well-developed, well- nourished Head exam: PRESENT: atraumatic, normocephalic Eye exam: PRESENT: conjunctiva pink, EOMI Ear exam: PRESENT: normal external ear exam Mouth exam: PRESENT: moist, tongue midline Neck exam: ABSENT: carotid bruit, JVD, lymphadenopathy, thyromegaly Respiratory exam: PRESENT: accessory muscle use, decreased breath sounds, prolonged expiratory phas. ABSENT: rales, rhonchi, wheezes Cardiovascular exam: PRESENT: RRR. ABSENT: diastolic murmur, rubs, systolic murmur Pulses: PRESENT: normal dorsalis pedis pul Vascular exam: PRESENT: normal capillary refill GI/Abdominal exam: PRESENT: normal bowel sounds, soft. ABSENT: distended, guarding, mass, organolmegaly, rebound, tenderness Rectal exam: PRESENT: deferred Extremities exam: PRESENT: full ROM. ABSENT: calf tenderness, clubbing, pedal edema Musculoskeletal exam: PRESENT: full ROM, tenderness - Left lesli swelling Neurological exam: PRESENT: alert, awake, oriented to person, oriented to place , oriented to time, oriented to situation, CN II-XII grossly intact. ABSENT: motor sensory deficit Psychiatric exam: PRESENT: appropriate affect, normal mood. ABSENT: homicidal ideation, suicidal ideation Skin exam: PRESENT: dry, intact, warm. ABSENT: cyanosis, rash Results Laboratory Results: 03/29/17 04:40 03/29/17 04:40 03/28/17 03/29/17 03/29/17 17:00 04:40 04:40 WBC 12.0 H RBC 3.32 L Hgb 11.2 L Hct 32.8 L MCV 99 H MCH 33.8 H MCHC 34.2 RDW 13.6 Plt Count 171 Seg Neutrophils % 77.7 Lymphocytes % 14.6 Monocytes % 5.4 Eosinophils % 1.9 Basophils % 0.4 Absolute Neutrophils 9.3 H Absolute Lymphocytes 1.8 Absolute Monocytes 0.6 Absolute Eosinophils 0.2 Absolute Basophils 0.1 Sodium 142.7 140.8 Potassium 3.3 L 3.4 L Chloride 109 H 109 H Carbon Dioxide 25 23 Anion Gap 9 9 BUN 11 9 Creatinine 0.51 L 0.54 Est GFR ( Amer) > 60 > 60 Est GFR (Non-Af Amer) > 60 > 60 Glucose 117 H 94 Calcium 7.4 L 7.1 L Magnesium 2.1 D 1.5 L Total Bilirubin 0.8 AST 67 H ALT 44 Alkaline Phosphatase 70 Total Protein 5.9 L Albumin 2.8 L Impressions: Ankle X-Ray 03/27/17 00:00 IMPRESSION: No acute fracture dislocation. Other findings as noted above Chest CT 03/27/17 00:00 IMPRESSION: Right upper lobe and bibasilar pneumonia. Facial Bones CT 03/27/17 11:02 IMPRESSION: NO ACUTE FINDINGS. Head CT 03/27/17 11:02 IMPRESSION: NORMAL BRAIN CT WITHOUT CONTRAST. EVIDENCE OF ACUTE STROKE: NO. Chest X-Ray 03/27/17 14:19 IMPRESSION: Left lower lobe pneumonia. Widening of the mediastinum is likely secondary to technique. Abdomen Ultrasound 03/29/17 00:00 IMPRESSION: LIMITED STUDY. FATTY INFILTRATION OF THE LIVER. Assessment & Plan - Diagnosis (1) Sepsis Qualifiers: Sepsis type: sepsis due to unspecified organism Qualified Code(s): A41.9 - Sepsis, unspecified organism Is this a current diagnosis for this admission?: Yes Plan: (Pneumonia, tachypnea, tachycardia, elevated white blood cell count, and altered mental status). Secondary Aspiriation Pneumonia: Zosyn. CT demonstrated the patient has a right upper lobe infiltrate and basilar infiltrate bilaterally. Will continue current treatment. Will discontinue IVFs. (2) Acute metabolic encephalopathy Is this a current diagnosis for this admission?: Yes Plan: Secondary to ETOH Withdrawal and Sepsis: Resolving. Pt does have mental illness. Will continue to evaluate. (3) Alcohol withdrawal delirium Is this a current diagnosis for this admission?: Yes Plan: Ativan PRN. (4) Left ankle pain Qualifiers: Chronicity: acute Qualified Code(s): M25.572 - Pain in left ankle and joints of left foot Is this a current diagnosis for this admission?: Yes Plan: Secondary to strain: X-ray demonstrates no fractures or dislocation. Supportive care. (5) Hypokalemia Is this a current diagnosis for this admission?: Yes Plan: Will give additional Potassium replacement. Will check BMP in am. (6) Pneumonia Qualifiers: Pneumonia type: due to unspecified organism Laterality: left Lung location: lower lobe of lung Qualified Code(s): J18.1 - Lobar pneumonia, unspecified organism Is this a current diagnosis for this admission?: Yes Plan: Secondary to aspirate aspiration pneumonia: Continue Zosyn (7) Hypomagnesemia Is this a current diagnosis for this admission?: Yes Plan: Will give an additional 3 grams of magnesium. Will check Mg in am. (8) Fall Qualifiers: Encounter type: initial encounter Qualified Code(s): W19.XXXA - Unspecified fall, initial encounter Is this a current diagnosis for this admission?: Yes Plan: OT/PT (9) Leukocytosis Is this a current diagnosis for this admission?: Yes Plan: Secondary to Sepsis: Zosyn. WBC resolving. (10) Elevated LFTs Is this a current diagnosis for this admission?: Yes Plan: Secondary ETOH: resolving. Will check CMP in am (11) Concern for Dysphagia Is this a current diagnosis for this admission?: Yes Plan: Nursing states that pt passed bedside study. (12) Fatty liver disease, nonalcoholic Is this a current diagnosis for this admission?: Yes Plan: Supportive care. (13) DVT prophylaxis Is this a current diagnosis for this admission?: Yes Plan: SCDs
[2017-03-29] MEDS: NORMAL SALINE 1000 ML 1,000 ML with POTASSIUM CHLORIDE 20 MEQ, MAGNESIUM SULFATE 8 MEQ,... IV SCH ×5 (23:47)
[2017-03-30] MEDS: PIPERACILLIN SODIUM/TAZOBACTAM 3.375 GM in NORMAL SALINE 100 ML IV SCH ×4 (01:15→18:28)
[2017-03-30] MEDS: LANSOPRAZOLE 15 MG TAB.RAP.DR PO SCH (06:05)
[2017-03-30] MEDS: LEVOTHYROXINE SODIUM 0.088 MG TABLET PO SCH (06:05)
[2017-03-30 06:18] LABS: ABSOLUTE BASOPHILS # (AUTO) 0.1 10^3/uL (0.0-0.2); ABSOLUTE EOSINOPHILS # (AUTO) 0.3 10^3/uL (0.0-0.6); ABSOLUTE LYMPHOCYTES (AUTO) 1.9 10^3/uL (0.5-4.7); ABSOLUTE MONOCYTES (AUTO) 0.7 10^3/uL (0.1-1.4); ABSOLUTE NEUT (AUTO) 8.1 10^3/uL (1.7-8.2); BASOPHILS % (AUTO) 0.5 % (0-2); EOSINOPHILS % (AUTO) 2.9 % (0-6); HEMATOCRIT 32.8 % (36.0-47.0); HEMOGLOBIN 11.4 g/dL (12.0-15.5); LYMPHOCYTES % (AUTO) 16.8 % (13-45); MEAN CORPUSCULAR HEMOGLOBIN 34.4 pg (27.0-33.4); MEAN CORPUSCULAR HGB CONC 34.8 g/dL (32.0-36.0); MEAN CORPUSCULAR VOLUME 99 fl (80-97); MONOCYTES % (AUTO) 6.5 % (3-13); PLATELET COUNT 183 10^3/uL (150-450); RED BLOOD COUNT 3.33 10^6/uL (3.72-5.28); RED CELL DISTRIBUTION WIDTH 13.5 % (11.5-14.0); SEGMENTED NEUTROPHILS % (AUTO) 73.3 % (42-78); TOTAL CELLS COUNTED % (AUTO) 100 %; WHITE BLOOD COUNT 11.1 10^3/uL (4.0-10.5)
[2017-03-30 06:43] LABS: ALANINE AMINOTRANSFERASE 44 U/L (9-52); ALBUMIN 2.7 g/dL (3.5-5.0); ALKALINE PHOSPHATASE 63 U/L (38-126); ANION GAP 8 (5-19); ASPARTATE AMINO TRANSFERASE 73 U/L (14-36); BILIRUBIN,DIRECT 0.4 mg/dL (0.0-0.4); BILIRUBIN,TOTAL 0.8 mg/dL (0.2-1.3); BLOOD UREA NITROGEN 6 mg/dL (7-20); CALCIUM 7.4 mg/dL (8.4-10.2); CARBON DIOXIDE 21 mmol/L (22-30); CHLORIDE 106 mmol/L (98-107); GLUCOSE 86 mg/dL (75-110); MAGNESIUM 1.5 mg/dL (1.6-2.3); POTASSIUM 3.7 mmol/L (3.6-5.0); SODIUM 134.7 mmol/L (137-145)
[2017-03-30] MEDS: SERTRALINE HCL 50 MG TABLET PO SCH (09:33)
[2017-03-30] MEDS: LURASIDONE HCL 40 MG TABLET PO SCH (09:34)
[2017-03-30] MEDS: CLONIDINE HCL 0.1 MG TABLET PO SCH ×2 (09:34→21:33)
--- NOTE | 2017-03-30 18:01 | PDOC PROGRESS REPORT ---
Subjective Progress Note for:: 03/30/17 Subjective:: Pt states that she is not shaking as much today. Pt states that she would like for her diet to be advanced. Reason For Visit: ASPIRATION PNEUMONIA,ETOH WITHDRAWAL Physical Exam Vital Signs: Temp Pulse Resp BP Pulse Ox 98.0 F 78 22 H 136/92 H 93 03/30/17 16:19 03/30/17 16:19 03/30/17 16:19 03/30/17 16:19 03/30/17 16:19 Intake & Output 03/29/17 03/30/17 03/31/17 06:59 06:59 06:59 Intake Total 3703 3358 237 Output Total 1400 1325 1300 Balance 2303 2033 -1063 Weight 99.6 kg 103.5 kg General appearance: PRESENT: no acute distress, well-developed, well-nourished Head exam: PRESENT: atraumatic, normocephalic Eye exam: PRESENT: conjunctiva pink, EOMI. ABSENT: scleral icterus Ear exam: PRESENT: normal external ear exam Mouth exam: PRESENT: moist, tongue midline Neck exam: ABSENT: carotid bruit, JVD, lymphadenopathy, thyromegaly Respiratory exam: PRESENT: decreased breath sounds. ABSENT: rales, rhonchi, wheezes Cardiovascular exam: PRESENT: RRR. ABSENT: diastolic murmur, rubs, systolic murmur Pulses: PRESENT: normal dorsalis pedis pul Vascular exam: PRESENT: normal capillary refill GI/Abdominal exam: PRESENT: normal bowel sounds, soft. ABSENT: distended, guarding, mass, organolmegaly, rebound, tenderness Rectal exam: PRESENT: deferred Extremities exam: PRESENT: full ROM. ABSENT: calf tenderness, clubbing, pedal edema Neurological exam: PRESENT: alert, awake, oriented to person, oriented to place , oriented to time, oriented to situation, CN II-XII grossly intact. ABSENT: motor sensory deficit Psychiatric exam: PRESENT: appropriate affect, normal mood. ABSENT: homicidal ideation, suicidal ideation Skin exam: PRESENT: dry, intact, warm. ABSENT: cyanosis, rash Results Laboratory Results: 03/30/17 05:07 03/30/17 05:07 03/30/17 03/30/17 05:07 05:07 WBC 11.1 H RBC 3.33 L Hgb 11.4 L Hct 32.8 L MCV 99 H MCH 34.4 H MCHC 34.8 RDW 13.5 Plt Count 183 Seg Neutrophils % 73.3 Lymphocytes % 16.8 Monocytes % 6.5 Eosinophils % 2.9 Basophils % 0.5 Absolute Neutrophils 8.1 Absolute Lymphocytes 1.9 Absolute Monocytes 0.7 Absolute Eosinophils 0.3 Absolute Basophils 0.1 Sodium 134.7 L Potassium 3.7 Chloride 106 Carbon Dioxide 21 L Anion Gap 8 BUN 6 L Creatinine 0.53 Est GFR ( Amer) > 60 Est GFR (Non-Af Amer) > 60 Glucose 86 Calcium 7.4 L Magnesium 1.5 L Total Bilirubin 0.8 AST 73 H ALT 44 Alkaline Phosphatase 63 Total Protein 6.0 L Albumin 2.7 L Impressions: Ankle X-Ray 03/27/17 00:00 IMPRESSION: No acute fracture dislocation. Other findings as noted above Chest CT 03/27/17 00:00 IMPRESSION: Right upper lobe and bibasilar pneumonia. Facial Bones CT 03/27/17 11:02 IMPRESSION: NO ACUTE FINDINGS. Head CT 03/27/17 11:02 IMPRESSION: NORMAL BRAIN CT WITHOUT CONTRAST. EVIDENCE OF ACUTE STROKE: NO. Chest X-Ray 03/27/17 14:19 IMPRESSION: Left lower lobe pneumonia. Widening of the mediastinum is likely secondary to technique. Abdomen Ultrasound 03/29/17 00:00 IMPRESSION: LIMITED STUDY. FATTY INFILTRATION OF THE LIVER. Assessment & Plan - Diagnosis (1) Sepsis Qualifiers: Sepsis type: sepsis due to unspecified organism Qualified Code(s): A41.9 - Sepsis, unspecified organism Is this a current diagnosis for this admission?: Yes Plan: (Pneumonia, tachypnea, tachycardia, elevated white blood cell count, and altered mental status). Secondary Aspiriation Pneumonia: Zosyn. CT demonstrated the patient has a right upper lobe infiltrate and basilar infiltrate bilaterally. Will continue current treatment. Will discontinue IVFs. (2) Acute metabolic encephalopathy Is this a current diagnosis for this admission?: Yes Plan: Secondary to ETOH Withdrawal and Sepsis: Resolving. Pt does have mental illness. Will continue to evaluate. Will advance diet. (3) Alcohol withdrawal delirium Is this a current diagnosis for this admission?: Yes Plan: Ativan PRN. (4) Left ankle pain Qualifiers: Chronicity: acute Qualified Code(s): M25.572 - Pain in left ankle and joints of left foot Is this a current diagnosis for this admission?: Yes Plan: Secondary to strain: X-ray demonstrates no fractures or dislocation. Supportive care. (5) Hypokalemia Is this a current diagnosis for this admission?: Yes Plan: Resolved. (6) Pneumonia Qualifiers: Pneumonia type: due to unspecified organism Laterality: left Lung location: lower lobe of lung Qualified Code(s): J18.1 - Lobar pneumonia, unspecified organism Is this a current diagnosis for this admission?: Yes Plan: Secondary to aspirate aspiration pneumonia: Continue Zosyn (7) Hypomagnesemia Is this a current diagnosis for this admission?: Yes Plan: Will give additional Magnesium 3 grams IV. Will check Mg. (8) Fall Qualifiers: Encounter type: initial encounter Qualified Code(s): W19.XXXA - Unspecified fall, initial encounter Is this a current diagnosis for this admission?: Yes Plan: OT/PT (9) Leukocytosis Is this a current diagnosis for this admission?: Yes Plan: Secondary to Sepsis: Zosyn. WBC resolving. (10) Elevated LFTs Is this a current diagnosis for this admission?: Yes Plan: Secondary ETOH: resolving. Will check CMP in am (11) Concern for Dysphagia Is this a current diagnosis for this admission?: Yes Plan: Nursing states that pt passed bedside study. (12) Fatty liver disease, nonalcoholic Is this a current diagnosis for this admission?: Yes Plan: Supportive care. (13) DVT prophylaxis Is this a current diagnosis for this admission?: Yes Plan: SCDs - Time Time Spent with patient: 15-24 minutes
[2017-03-30] MEDS: MAGNESIUM SULFATE/D5W 1 GM/100 ML RTUPB IV SCH ×3 (20:08→22:31)
[2017-03-30] MEDS: NORMAL SALINE 1000 ML 1,000 ML with POTASSIUM CHLORIDE 20 MEQ, MAGNESIUM SULFATE 8 MEQ,... IV SCH ×5 (22:30)
[2017-03-31] MEDS: PIPERACILLIN SODIUM/TAZOBACTAM 3.375 GM in NORMAL SALINE 100 ML IV SCH ×5 (00:25→23:00)
[2017-03-31 05:23] LABS: ABSOLUTE BASOPHILS # (AUTO) 0.1 10^3/uL (0.0-0.2); ABSOLUTE EOSINOPHILS # (AUTO) 0.3 10^3/uL (0.0-0.6); ABSOLUTE LYMPHOCYTES (AUTO) 1.6 10^3/uL (0.5-4.7); ABSOLUTE MONOCYTES (AUTO) 1.1 10^3/uL (0.1-1.4); ABSOLUTE NEUT (AUTO) 6.4 10^3/uL (1.7-8.2); BASOPHILS % (AUTO) 0.9 % (0-2); EOSINOPHILS % (AUTO) 3.1 % (0-6); HEMATOCRIT 33.3 % (36.0-47.0); HEMOGLOBIN 11.6 g/dL (12.0-15.5); LYMPHOCYTES % (AUTO) 17.3 % (13-45); MEAN CORPUSCULAR HEMOGLOBIN 34.1 pg (27.0-33.4); MEAN CORPUSCULAR HGB CONC 34.9 g/dL (32.0-36.0); MEAN CORPUSCULAR VOLUME 98 fl (80-97); MONOCYTES % (AUTO) 11.2 % (3-13); PLATELET COUNT 194 10^3/uL (150-450); RED CELL DISTRIBUTION WIDTH 13.4 % (11.5-14.0); SEGMENTED NEUTROPHILS % (AUTO) 67.5 % (42-78); TOTAL CELLS COUNTED % (AUTO) 100 %; WHITE BLOOD COUNT 9.5 10^3/uL (4.0-10.5)
[2017-03-31 05:55] LABS: ALANINE AMINOTRANSFERASE 38 U/L (9-52); ALBUMIN 2.9 g/dL (3.5-5.0); ALKALINE PHOSPHATASE 58 U/L (38-126); ANION GAP 7 (5-19); ASPARTATE AMINO TRANSFERASE 54 U/L (14-36); BILIRUBIN,DIRECT 0.1 mg/dL (0.0-0.4); BILIRUBIN,TOTAL 0.4 mg/dL (0.2-1.3); BLOOD UREA NITROGEN 7 mg/dL (7-20); CALCIUM 8.6 mg/dL (8.4-10.2); CARBON DIOXIDE 25 mmol/L (22-30); CHLORIDE 105 mmol/L (98-107); GLUCOSE 98 mg/dL (75-110); MAGNESIUM 1.6 mg/dL (1.6-2.3); POTASSIUM 3.8 mmol/L (3.6-5.0); SODIUM 136.9 mmol/L (137-145); TOTAL PROTEIN 5.8 g/dL (6.3-8.2)
[2017-03-31] MEDS: LANSOPRAZOLE 15 MG TAB.RAP.DR PO SCH (06:17)
[2017-03-31] MEDS: LEVOTHYROXINE SODIUM 0.088 MG TABLET PO SCH (06:17)
[2017-03-31] MEDS: ACETAMINOPHEN 325 MG TABLET PO PRN (08:28)
[2017-03-31] MEDS: LURASIDONE HCL 40 MG TABLET PO SCH (08:29)
[2017-03-31] MEDS: CLONIDINE HCL 0.1 MG TABLET PO SCH ×2 (10:21→21:14)
[2017-03-31] MEDS: SERTRALINE HCL 50 MG TABLET PO SCH (10:22)
--- NOTE | 2017-03-31 16:59 | PDOC PROGRESS REPORT ---
Subjective Progress Note for:: 03/31/17 Subjective:: Pt states that she is doing better today. Nursing states that pt has been up ambulating around hospital. Egan was removed. Reason For Visit: ASPIRATION PNEUMONIA,ETOH WITHDRAWAL Physical Exam Vital Signs: Temp Pulse Resp BP Pulse Ox 98.6 F 69 22 H 149/95 H 93 03/31/17 11:28 03/31/17 14:00 03/31/17 11:28 03/31/17 11:28 03/31/17 11:28 Intake & Output 03/30/17 03/31/17 04/01/17 06:59 06:59 06:59 Intake Total 3358 2874 237 Output Total 1325 4125 Balance 2033 -1251 237 Weight 103.5 kg 103.8 kg General appearance: PRESENT: no acute distress, well-developed, well-nourished Head exam: PRESENT: atraumatic, normocephalic Eye exam: PRESENT: conjunctiva pink, EOMI. ABSENT: scleral icterus Ear exam: PRESENT: normal external ear exam Mouth exam: PRESENT: moist, tongue midline Neck exam: ABSENT: carotid bruit, JVD, lymphadenopathy, thyromegaly Respiratory exam: PRESENT: decreased breath sounds. ABSENT: rales, rhonchi, wheezes Cardiovascular exam: PRESENT: RRR. ABSENT: diastolic murmur, rubs, systolic murmur Pulses: PRESENT: normal dorsalis pedis pul Vascular exam: PRESENT: normal capillary refill GI/Abdominal exam: PRESENT: normal bowel sounds, soft. ABSENT: distended, guarding, mass, organolmegaly, rebound, tenderness Rectal exam: PRESENT: deferred Extremities exam: PRESENT: full ROM. ABSENT: calf tenderness, clubbing, pedal edema Neurological exam: PRESENT: alert, awake, oriented to person, oriented to place , oriented to time, oriented to situation, CN II-XII grossly intact. ABSENT: motor sensory deficit Psychiatric exam: PRESENT: appropriate affect, normal mood. ABSENT: homicidal ideation, suicidal ideation Skin exam: PRESENT: dry, intact, warm. ABSENT: cyanosis, rash Results Laboratory Results: 03/31/17 05:10 03/31/17 05:10 03/31/17 03/31/17 05:10 05:10 WBC 9.5 RBC 3.40 L Hgb 11.6 L Hct 33.3 L MCV 98 H MCH 34.1 H MCHC 34.9 RDW 13.4 Plt Count 194 Seg Neutrophils % 67.5 Lymphocytes % 17.3 Monocytes % 11.2 Eosinophils % 3.1 Basophils % 0.9 Absolute Neutrophils 6.4 Absolute Lymphocytes 1.6 Absolute Monocytes 1.1 Absolute Eosinophils 0.3 Absolute Basophils 0.1 Sodium 136.9 L Potassium 3.8 Chloride 105 Carbon Dioxide 25 Anion Gap 7 BUN 7 Creatinine 0.62 Est GFR ( Amer) > 60 Est GFR (Non-Af Amer) > 60 Glucose 98 Calcium 8.6 Magnesium 1.6 Total Bilirubin 0.4 AST 54 H ALT 38 Alkaline Phosphatase 58 Total Protein 5.8 L Albumin 2.9 L Impressions: Ankle X-Ray 03/27/17 00:00 IMPRESSION: No acute fracture dislocation. Other findings as noted above Chest CT 03/27/17 00:00 IMPRESSION: Right upper lobe and bibasilar pneumonia. Facial Bones CT 03/27/17 11:02 IMPRESSION: NO ACUTE FINDINGS. Head CT 03/27/17 11:02 IMPRESSION: NORMAL BRAIN CT WITHOUT CONTRAST. EVIDENCE OF ACUTE STROKE: NO. Chest X-Ray 03/27/17 14:19 IMPRESSION: Left lower lobe pneumonia. Widening of the mediastinum is likely secondary to technique. Abdomen Ultrasound 03/29/17 00:00 IMPRESSION: LIMITED STUDY. FATTY INFILTRATION OF THE LIVER. Assessment & Plan - Diagnosis (1) Sepsis Qualifiers: Sepsis type: sepsis due to unspecified organism Qualified Code(s): A41.9 - Sepsis, unspecified organism Is this a current diagnosis for this admission?: Yes Plan: (Pneumonia, tachypnea, tachycardia, elevated white blood cell count, and altered mental status). Secondary Aspiriation Pneumonia: Zosyn. CT demonstrated the patient has a right upper lobe infiltrate and basilar infiltrate bilaterally. (2) Acute metabolic encephalopathy Is this a current diagnosis for this admission?: Yes Plan: Secondary to ETOH Withdrawal and Sepsis: Resolved. (3) Alcohol withdrawal delirium Is this a current diagnosis for this admission?: Yes Plan: Ativan PRN. (4) Left ankle pain Qualifiers: Chronicity: acute Qualified Code(s): M25.572 - Pain in left ankle and joints of left foot Is this a current diagnosis for this admission?: Yes Plan: Secondary to strain: X-ray demonstrates no fractures or dislocation. Supportive care. (5) Hypokalemia Is this a current diagnosis for this admission?: Yes Plan: Resolved. (6) Pneumonia Qualifiers: Pneumonia type: due to unspecified organism Laterality: left Lung location: lower lobe of lung Qualified Code(s): J18.1 - Lobar pneumonia, unspecified organism Is this a current diagnosis for this admission?: Yes Plan: Secondary to aspirate aspiration pneumonia: Continue Zosyn (7) Hypomagnesemia Is this a current diagnosis for this admission?: Yes Plan: Will give additional Magnesium. Will check Mg in am (8) Fall Qualifiers: Encounter type: initial encounter Qualified Code(s): W19.XXXA - Unspecified fall, initial encounter Is this a current diagnosis for this admission?: Yes Plan: OT/PT (9) Leukocytosis Is this a current diagnosis for this admission?: Yes Plan: Secondary to Sepsis: Zosyn. WBC resolving. (10) Elevated LFTs Is this a current diagnosis for this admission?: Yes Plan: Secondary ETOH: resolving. (11) Concern for Dysphagia Is this a current diagnosis for this admission?: Yes Plan: Resolved. (12) Fatty liver disease, nonalcoholic Is this a current diagnosis for this admission?: Yes Plan: Supportive care. (13) DVT prophylaxis Is this a current diagnosis for this admission?: Yes Plan: SCDs - Time Time Spent with patient: 15-24 minutes
[2017-03-31] MEDS: MAGNESIUM SULFATE/D5W 1 GM/100 ML RTUPB IV SCH ×2 (19:45→20:02)
[2017-03-31] MEDS: NORMAL SALINE 1000 ML 1,000 ML with POTASSIUM CHLORIDE 20 MEQ, MAGNESIUM SULFATE 8 MEQ,... IV SCH ×5 (21:14)
[2017-04-01] MEDS: PIPERACILLIN SODIUM/TAZOBACTAM 3.375 GM in NORMAL SALINE 100 ML IV SCH ×4 (05:12→23:55)
[2017-04-01] MEDS: LEVOTHYROXINE SODIUM 0.088 MG TABLET PO SCH (05:13)
[2017-04-01] MEDS: LANSOPRAZOLE 15 MG TAB.RAP.DR PO SCH (05:13)
[2017-04-01 05:42] LABS: ABSOLUTE BASOPHILS # (AUTO) 0.1 10^3/uL (0.0-0.2); ABSOLUTE EOSINOPHILS # (AUTO) 0.4 10^3/uL (0.0-0.6); ABSOLUTE LYMPHOCYTES (AUTO) 1.9 10^3/uL (0.5-4.7); ABSOLUTE MONOCYTES (AUTO) 1.2 10^3/uL (0.1-1.4); ABSOLUTE NEUT (AUTO) 7.4 10^3/uL (1.7-8.2); BASOPHILS % (AUTO) 0.7 % (0-2); EOSINOPHILS % (AUTO) 3.6 % (0-6); HEMATOCRIT 33.6 % (36.0-47.0); LYMPHOCYTES % (AUTO) 17.4 % (13-45); MEAN CORPUSCULAR HEMOGLOBIN 34.7 pg (27.0-33.4); MEAN CORPUSCULAR HGB CONC 35.7 g/dL (32.0-36.0); MEAN CORPUSCULAR VOLUME 97 fl (80-97); MONOCYTES % (AUTO) 11.3 % (3-13); PLATELET COUNT 221 10^3/uL (150-450); RED BLOOD COUNT 3.45 10^6/uL (3.72-5.28); RED CELL DISTRIBUTION WIDTH 13.5 % (11.5-14.0); TOTAL CELLS COUNTED % (AUTO) 100 %
[2017-04-01 06:17] LABS: ALANINE AMINOTRANSFERASE 47 U/L (9-52); ALKALINE PHOSPHATASE 57 U/L (38-126); ANION GAP 9 (5-19); ASPARTATE AMINO TRANSFERASE 54 U/L (14-36); BILIRUBIN,DIRECT 0.4 mg/dL (0.0-0.4); BILIRUBIN,TOTAL 0.6 mg/dL (0.2-1.3); BLOOD UREA NITROGEN 7 mg/dL (7-20); CALCIUM 8.8 mg/dL (8.4-10.2); CARBON DIOXIDE 23 mmol/L (22-30); CHLORIDE 104 mmol/L (98-107); GLUCOSE 85 mg/dL (75-110); POTASSIUM 4.4 mmol/L (3.6-5.0); SODIUM 136.1 mmol/L (137-145); TOTAL PROTEIN 6.3 g/dL (6.3-8.2)
[2017-04-01] MEDS: ACETAMINOPHEN 325 MG TABLET PO PRN ×2 (08:25→19:17)
[2017-04-01] MEDS: LURASIDONE HCL 40 MG TABLET PO SCH (08:25)
[2017-04-01] MEDS: CLONIDINE HCL 0.1 MG TABLET PO SCH ×2 (10:06→21:27)
[2017-04-01] MEDS: SERTRALINE HCL 50 MG TABLET PO SCH (10:06)
--- NOTE | 2017-04-01 13:30 | PDOC PROGRESS REPORT ---
Subjective Progress Note for:: 04/01/17 Subjective:: The patient is currently hospitalized for acute alcohol withdrawal and aspiration pneumonia. Today is day 6 out of 7 of [facility]. Reason For Visit: ASPIRATION PNEUMONIA,ETOH WITHDRAWAL Physical Exam Vital Signs: Temp Pulse Resp BP Pulse Ox 97.4 F 70 16 131/81 H 96 04/01/17 12:05 04/01/17 12:05 04/01/17 12:05 04/01/17 12:05 04/01/17 12:05 Intake & Output 03/31/17 04/01/17 04/02/17 06:59 06:59 06:59 Intake Total 2874 4037 Output Total 4125 625 Balance -1251 3412 Weight 103.8 kg 101.8 kg Additional comments: The patient was in no distress this morning. She was pleasant and cooperative. She was saying that she was thirsty, drinking a lot and had to urinate more frequently but otherwise only complained of a mild headache. Her facial appearance is unremarkable. Her lungs are clear anteriorly. She has a few scattered crackles in the posterior lung gutierrez. Her cardiac exam is regular without murmurs, gallops or rubs. The abdomen is soft and flat. The abdomen is obese. She does not have guarding or rebound noted. There is no fluid wave. There are no hernias or masses present. The lower extremities are warm to touch without pitting edema. The skin is otherwise warm, dry and intact without lesions or rashes. Results Laboratory Results: 04/01/17 04:53 04/01/17 04:53 04/01/17 04/01/17 04:53 04:53 WBC 11.0 H RBC 3.45 L Hgb 12.0 Hct 33.6 L MCV 97 MCH 34.7 H MCHC 35.7 RDW 13.5 Plt Count 221 Seg Neutrophils % 67.0 Lymphocytes % 17.4 Monocytes % 11.3 Eosinophils % 3.6 Basophils % 0.7 Absolute Neutrophils 7.4 Absolute Lymphocytes 1.9 Absolute Monocytes 1.2 Absolute Eosinophils 0.4 Absolute Basophils 0.1 Sodium 136.1 L Potassium 4.4 Chloride 104 Carbon Dioxide 23 Anion Gap 9 BUN 7 Creatinine 0.59 Est GFR ( Amer) > 60 Est GFR (Non-Af Amer) > 60 Glucose 85 Calcium 8.8 Total Bilirubin 0.6 AST 54 H ALT 47 Alkaline Phosphatase 57 Total Protein 6.3 Albumin 3.0 L Impressions: Ankle X-Ray 03/27/17 00:00 IMPRESSION: No acute fracture dislocation. Other findings as noted above Chest CT 03/27/17 00:00 IMPRESSION: Right upper lobe and bibasilar pneumonia. Facial Bones CT 03/27/17 11:02 IMPRESSION: NO ACUTE FINDINGS. Head CT 03/27/17 11:02 IMPRESSION: NORMAL BRAIN CT WITHOUT CONTRAST. EVIDENCE OF ACUTE STROKE: NO. Chest X-Ray 03/27/17 14:19 IMPRESSION: Left lower lobe pneumonia. Widening of the mediastinum is likely secondary to technique. Abdomen Ultrasound 03/29/17 00:00 IMPRESSION: LIMITED STUDY. FATTY INFILTRATION OF THE LIVER. Assessment & Plan - Diagnosis (1) Acute metabolic encephalopathy Is this a current diagnosis for this admission?: Yes (2) Alcohol withdrawal delirium Is this a current diagnosis for this admission?: Yes (3) Elevated LFTs Is this a current diagnosis for this admission?: Yes (4) Leukocytosis Is this a current diagnosis for this admission?: Yes (5) Pneumonia Qualifiers: Pneumonia type: due to unspecified organism Laterality: left Lung location: lower lobe of lung Qualified Code(s): J18.1 - Lobar pneumonia, unspecified organism Is this a current diagnosis for this admission?: Yes (6) Sepsis Qualifiers: Sepsis type: sepsis due to unspecified organism Qualified Code(s): A41.9 - Sepsis, unspecified organism Is this a current diagnosis for this admission?: Yes - Time Time Spent with patient: 15-24 minutes - Inpatient Certification Medical Necessity: Need for IV Antibiotics - Plan Summary Plan Summary: The patient appears to be improving clinically. She has had multiple electrolyte disturbances this hospitalization which are resolving. Her LFTs are normalizing. Today is day 6 out of 7 for [facility]. I anticipate discharge in the next 1-2 days.
[2017-04-02] MEDS: ACETAMINOPHEN 325 MG TABLET PO PRN (03:31)
[2017-04-02] MEDS: LEVOTHYROXINE SODIUM 0.088 MG TABLET PO SCH (05:21)
[2017-04-02] MEDS: PIPERACILLIN SODIUM/TAZOBACTAM 3.375 GM in NORMAL SALINE 100 ML IV SCH ×4 (05:22→23:30)
[2017-04-02] MEDS: LANSOPRAZOLE 15 MG TAB.RAP.DR PO SCH (05:22)
[2017-04-02] MEDS: LURASIDONE HCL 40 MG TABLET PO SCH (07:24)
[2017-04-02] MEDS: THIAMINE HCL 100 MG TABLET PO SCH (09:27)
[2017-04-02] MEDS: FOLIC ACID 1 MG TABLET PO SCH (09:27)
[2017-04-02] MEDS: SERTRALINE HCL 50 MG TABLET PO SCH (09:27)
[2017-04-02] MEDS: MULTIVITAMIN TABLET PO SCH (09:27)
[2017-04-02] MEDS: CLONIDINE HCL 0.1 MG TABLET PO SCH ×2 (09:27→21:20)
--- NOTE | 2017-04-02 17:42 | PDOC PROGRESS REPORT ---
Subjective Progress Note for:: 04/02/17 Subjective:: The patient is currently hospitalized for acute alcohol withdrawal and aspiration pneumonia. Today is day 7 out of 7 of [facility]. The patient had some mild nausea this morning but is otherwise without any complaints. We discussed intervention for her alcohol use. She agrees to start Alcoholics Anonymous when she is discharged from the hospital. Reason For Visit: ASPIRATION PNEUMONIA,ETOH WITHDRAWAL Physical Exam Vital Signs: Temp Pulse Resp BP Pulse Ox 97.5 F 66 16 117/75 99 04/02/17 15:14 04/02/17 15:14 04/02/17 15:14 04/02/17 15:14 04/02/17 15:14 Intake & Output 04/01/17 04/02/17 04/03/17 06:59 06:59 06:59 Intake Total 4037 2448 0 Output Total 625 203 Balance 3412 2245 0 Weight 101.8 kg 102.1 kg Additional comments: The patient appears to be her stated age. She is obese. She is not in any distress. Her cognition and mentation are appropriate. Her lungs are clear to auscultation bilaterally. Her cardiac exam is regular without murmurs, gallops or rubs. The abdomen is soft and flat but obese. She does not have guarding or rebound noted and there are no hernias or masses present. The lower extremities are unremarkable. The skin is warm dry and intact without lesions or rashes. Results Laboratory Results: 04/01/17 04:53 04/01/17 04:53 03/27/17 19:25 Blood Blood Culture - Final NO GROWTH IN 5 DAYS Impressions: Ankle X-Ray 03/27/17 00:00 IMPRESSION: No acute fracture dislocation. Other findings as noted above Chest CT 03/27/17 00:00 IMPRESSION: Right upper lobe and bibasilar pneumonia. Facial Bones CT 03/27/17 11:02 IMPRESSION: NO ACUTE FINDINGS. Head CT 03/27/17 11:02 IMPRESSION: NORMAL BRAIN CT WITHOUT CONTRAST. EVIDENCE OF ACUTE STROKE: NO. Chest X-Ray 03/27/17 14:19 IMPRESSION: Left lower lobe pneumonia. Widening of the mediastinum is likely secondary to technique. Abdomen Ultrasound 03/29/17 00:00 IMPRESSION: LIMITED STUDY. FATTY INFILTRATION OF THE LIVER. Assessment & Plan - Diagnosis (1) Acute metabolic encephalopathy Is this a current diagnosis for this admission?: Yes (2) Alcohol withdrawal delirium Is this a current diagnosis for this admission?: Yes (3) Elevated LFTs Is this a current diagnosis for this admission?: Yes (4) Leukocytosis Is this a current diagnosis for this admission?: Yes (5) Pneumonia Qualifiers: Pneumonia type: due to unspecified organism Laterality: left Lung location: lower lobe of lung Qualified Code(s): J18.1 - Lobar pneumonia, unspecified organism Is this a current diagnosis for this admission?: Yes (6) Sepsis Qualifiers: Sepsis type: sepsis due to unspecified organism Qualified Code(s): A41.9 - Sepsis, unspecified organism Is this a current diagnosis for this admission?: Yes - Time Time Spent with patient: 15-24 minutes - Inpatient Certification Medical Necessity: Need for IV Antibiotics - Plan Summary Plan Summary: The patient appears to be improving clinically. She has had multiple electrolyte disturbances this hospitalization which are resolving. Her LFTs are normalizing. Today is day 7 out of 7 for Zosyn. I anticipate discharge tomorrow. It is encouraging and reassuring that the patient agrees to begin Alcoholics Anonymous upon discharge.
[2017-04-03] MEDS: LANSOPRAZOLE 15 MG TAB.RAP.DR PO SCH (05:14)
[2017-04-03] MEDS: PIPERACILLIN SODIUM/TAZOBACTAM 3.375 GM in NORMAL SALINE 100 ML IV SCH ×2 (05:14→11:47)
[2017-04-03] MEDS: LEVOTHYROXINE SODIUM 0.088 MG TABLET PO SCH (05:14)
[2017-04-03] MEDS: CLONIDINE HCL 0.1 MG TABLET PO SCH (09:42)
[2017-04-03] MEDS: MULTIVITAMIN TABLET PO SCH (09:42)
[2017-04-03] MEDS: FOLIC ACID 1 MG TABLET PO SCH (09:42)
[2017-04-03] MEDS: THIAMINE HCL 100 MG TABLET PO SCH (09:42)
[2017-04-03] MEDS: SERTRALINE HCL 50 MG TABLET PO SCH (09:42)
[2017-04-03] MEDS: LURASIDONE HCL 40 MG TABLET PO SCH (09:43)
--- NOTE | 2017-04-03 11:27 | PDOC DISCHARGE SUMMARY ---
General - Admit/Disc Date/PCP Admission Date/Primary Care Provider: 03/27/17 15:45 BERNIE SAVAGE MD Discharge Date: 04/03/17 - Discharge Diagnosis (1) Acute metabolic encephalopathy Is this a current diagnosis for this admission?: Yes (2) Alcohol withdrawal delirium Is this a current diagnosis for this admission?: Yes (3) Elevated LFTs Is this a current diagnosis for this admission?: Yes (4) Leukocytosis Is this a current diagnosis for this admission?: Yes (5) Pneumonia Is this a current diagnosis for this admission?: Yes (6) Sepsis Is this a current diagnosis for this admission?: Yes - Additional Information Resuscitation Status: Full Code Discharge Diet: Regular Discharge Activity: Activity As Tolerated Prescriptions: Thiamine HCl [Thiamine 100 mg Tablet] 100 mg PO DAILY 30 Days #30 tablet Home Medications: Albuterol Sulfate [Proair HFA Inhalation Aerosol 8.5 gm MDI] 2 puff IH Q6HP PRN 03/27/17 Alprazolam [Xanax 0.5 mg Tablet] 0.5 mg PO Q8HP PRN 03/27/17 Clonidine HCl [Catapres 0.1 mg Tablet] 0.1 mg PO Q12 03/27/17 Hydrochlorothiazide [Hydrodiuril 25 mg Tablet] 25 mg PO DAILY 03/27/17 Levothyroxine Sodium [Synthroid 0.088 mg Tablet] 0.088 mg PO Q6AM 03/27/17 Lurasidone HCl [Latuda] 20 mg PO [id number] 03/27/17 Sertraline HCl [Zoloft] 150 mg PO DAILY 03/27/17 Folic Acid [Folvite 1 mg Tablet] 1 mg PO DAILY tablet 04/03/17 Multivitamin [Tab-A-Meseret (Multiple Vitamin) Tablet] 1 tab PO DAILY tablet 04/03 Thiamine HCl [Thiamine 100 mg Tablet] 100 mg PO DAILY 30 Days #30 tablet History of Present Illness History of Present Illness: FABIANA HEAD is a 46 year old female presents to the emergency room after family bring in patient and due to be in intoxicated and not feeling well. Patient during my encounter was not able to give complete history appear to be intoxicated. Patient reports that she has not been feeling well and has fever. Patient then fell back to sleep on awakening patient would try to give history but not able to understand. Nursing reports the patient fell at home and has injured her left ankle. Hospital Course Hospital Course: During this hospitalization the patient was essentially treated supportively for alcohol withdrawal and she received 7 days of IV Zosyn for aspiration pneumonia. She had multiple electrolyte disturbances which were replaced. She was maintained on an IV banana bag until she was eating and drinking properly. She will be released on a multivitamin, thiamine and folate at discharge. Her home medications will be renewed at discharge. She did have an x-ray of her ankle which was unremarkable. She had some swelling on physical exam this morning only of the left leg. A stat Doppler was performed which is negative for DVT. The patient was counseled on her use and abuse of alcohol. She agrees to restart Alcoholics Anonymous upon discharge. Her abdominal ultrasound was also abnormal with fatty infiltration. She did have elevated LFTs which improved during this hospitalization, but, additional ongoing follow- up is recommended. Physical Exam Vital Signs: Temp Pulse Resp BP Pulse Ox 97.6 F 69 12 132/68 H 97 04/03/17 07:41 04/03/17 07:41 04/03/17 07:41 04/03/17 07:41 04/03/17 07:41 Intake & Output 04/02/17 04/03/17 04/04/17 06:59 06:59 06:59 Intake Total 2448 2013 Output Total 203 Balance 2245 2013 Weight 102.1 kg 98.4 kg Additional comments: The patient is a very pleasant middle-aged female. She is not in any distress. Her cognition and mentation are appropriate today. Her cardiac exam demonstrates a regular rate and rhythm without murmurs, gallops or rubs. The abdomen is soft and flat. Bowel sounds are present in the lower quadrants. She does not have guarding or rebound noted and there are no hernias or masses present. The lower extremities again demonstrates some asymmetry with edema of the left leg. Stat Doppler was ordered prior to discharge which I was verbally told is negative for DVT. Results Laboratory Results: 04/01/17 04:53 04/01/17 04:53 Impressions: Ankle X-Ray 03/27/17 00:00 IMPRESSION: No acute fracture dislocation. Other findings as noted above Chest CT 03/27/17 00:00 IMPRESSION: Right upper lobe and bibasilar pneumonia. Facial Bones CT 03/27/17 11:02 IMPRESSION: NO ACUTE FINDINGS. Head CT 03/27/17 11:02 IMPRESSION: NORMAL BRAIN CT WITHOUT CONTRAST. EVIDENCE OF ACUTE STROKE: NO. Chest X-Ray 03/27/17 14:19 IMPRESSION: Left lower lobe pneumonia. Widening of the mediastinum is likely secondary to technique. Abdomen Ultrasound 03/29/17 00:00 IMPRESSION: LIMITED STUDY. FATTY INFILTRATION OF THE LIVER. Plan Discharge Plan: 1. The patient will need to follow-up with her primary care management assistant in 1-2 weeks. It is recommended that she have a repeat CBC and chemistry panel. She did have mild leukocytosis during this hospitalization and multiple electrolyte disturbances associated with her use of alcohol. 2. The patient agrees to start Alcoholics Anonymous program. Time Spent: Less than 30 Minutes
[2017-04-03 11:35] VITALS: BP 107/55
--- NOTE | 2017-04-03 19:14 | XCELERA REPORT ---
[address] [address] Lower Extremity Venous Evaluation Name: FABIANA HEAD Age: 46 yrs Gender: Female : 1970 Patient Status: Inpatient Patient Location: [facility]A Study Date: 04/03/2017 09:15 AM Procedure: Color flow and duplex imaging of the veins of the left lower extremity as well as the right Common Femoral vein. Reason For Study: LLE swollen Ordering Physician: FUNMILAYO CHENG Performed By: Mariel Scott Right Sided Venous Evaluation The right common femoral vein is fully compressible. Spontaneous and phasic flow is present in the right common femoral vein. Left Sided Venous Evaluation Normal vessel filling wall to wall, compression and augmentation as well as Colour flow down to the infrageniculate veins. Interpretation Summary No duplex evidence of DVT or obstruction in the left lower extremity nor in the right Common Femoral vein. : FUNMILAYO CHENG > Herb Valderrama
== END 2017-04-03 13:25 | disposition home or self-care (01) | DRG 871 ==
LOC: ER 10:07 → EH 15:45 → 3W 18:45
PROVIDERS: ADMIT Emergency Medicine; ATTEND Emergency Medicine
PROC: 3E0F73Z Introduction of Anti-inflammatory into Respiratory Tract, Via Natural or Artificial Opening (ICD-10-PCS; principal; 2017-03-28)
DX: A41.9 Sepsis, unspecified organism (principal); G93.41 Metabolic encephalopathy; J69.0 Pneumonitis due to inhalation of food and vomit; F10.231 Alcohol dependence with withdrawal delirium; Y90.0 Blood alcohol level of less than 20 mg/100 ml; Y92.019 Unspecified place in single-family (private) house as the place of occurrence of the external cause; I10 Essential (primary) hypertension; J44.9 Chronic obstructive pulmonary disease, unspecified; K21.9 Gastro-esophageal reflux disease without esophagitis; F32.9 Major depressive disorder, single episode, unspecified; M25.572 Pain in left ankle and joints of left foot; E87.6 Hypokalemia; E83.42 Hypomagnesemia; E66.01 Morbid (severe) obesity due to excess calories; K76.0 Fatty (change of) liver, not elsewhere classified; S00.83XA Contusion of other part of head, initial encounter; W01.0XXA Fall on same level from slipping, tripping and stumbling without subsequent striking against object, initial encounter; Z68.39 Body mass index [BMI] 39.0-39.9, adult; I25.2 Old myocardial infarction; Z90.49 Acquired absence of other specified parts of digestive tract; Z79.899 Other long term (current) drug therapy
CPT/HCPCS: 36415; 70450; 70486; 71045; 71250; 76705; 80048; 80053; 80307; 81001; 82140; 82803; 83690; 83735; 85025; 87040; 93005; 93010; 93971; 96361; 96365; 96366; 96375; 99284; G8978-GP; G8979-GP; G8987-GO; G8988-GO; J0456; J0696; J2060; J2543; J3411; J3475; J3480; J3490; J7030; J7620; S0119

== ENCOUNTER 2017-05-24 19:38 | Inpatient (IN) | payer MEDICARE ==
[2017-05-24] MEDS ORDERED: NORMAL SALINE 1000 ML 1,000 ML IV ONE ×2 (19:51→20:42)
[2017-05-24] MEDS ORDERED: LORAZEPAM INJ 2 MG/1 ML VIAL IV ONE ×4 (19:51→23:05)
[2017-05-24] MEDS ORDERED: DILTIAZEM HCL INJ 25 MG/5 ML VIAL IV ONE ×2 (20:19→23:00)
[2017-05-24] MEDS ORDERED: DILTIAZEM HCL/D5W 125 MG/125 ML RTUINJ IV PRN (20:19)
[2017-05-24] MEDS ORDERED: DILTIAZEM HCL INJ 25 MG/5 ML VIAL ONE (20:21)
[2017-05-24] MEDS ORDERED: DILTIAZEM HCL/D5W 125 MG/125 ML RTUINJ IV ONE (20:21)
--- NOTE | 2017-05-24 20:23 | RADIOLOGY REPORT (SQ) ---
EXAM DESCRIPTION: CHEST SINGLE VIEW COMPLETED DATE/TIME: 05/24/2017 8:14 pm REASON FOR STUDY: shortness of breath COMPARISON: 03/27/2017. EXAM PARAMETERS: NUMBER OF VIEWS: One view. TECHNIQUE: Single frontal radiographic view of the chest acquired. RADIATION DOSE: NA LIMITATIONS: None. FINDINGS: LUNGS AND PLEURA: No opacities, masses or pneumothorax. No pleural effusion. MEDIASTINUM AND HILAR STRUCTURES: No masses. Contour normal. HEART AND VASCULAR STRUCTURES: Heart upper limits of normal in size. Normal vasculature. BONES: No acute findings. HARDWARE: None in the chest. OTHER: No other significant finding. IMPRESSION: NO ACUTE RADIOGRAPHIC FINDING IN THE CHEST. TECHNICAL DOCUMENTATION: JOB ID: [id number] [employer]- All Rights Reserved Reading location - IP/workstation name: [email or web address]
[2017-05-24] MEDS ORDERED: ONDANSETRON HCL INJ/PF 4 MG/2 ML SDV IV ONE (20:48)
[2017-05-24 21:00] LABS: ALANINE AMINOTRANSFERASE 82 U/L (9-52); ALBUMIN 4.2 g/dL (3.5-5.0); ALKALINE PHOSPHATASE 161 U/L (38-126); ASPARTATE AMINO TRANSFERASE 167 U/L (14-36); BILIRUBIN,DIRECT 1.1 mg/dL (0.0-0.4); BILIRUBIN,TOTAL 2.2 mg/dL (0.2-1.3); BLOOD UREA NITROGEN 9 mg/dL (7-20); CALCIUM 8.1 mg/dL (8.4-10.2); CARBON DIOXIDE 16 mmol/L (22-30); CHLORIDE 101 mmol/L (98-107); CREATINE KINASE 339 U/L (30-135); GLUCOSE 135 mg/dL (75-110); LIPASE 194.9 U/L (23-300); POTASSIUM 3.3 mmol/L (3.6-5.0); TOTAL PROTEIN 8.8 g/dL (6.3-8.2)
[2017-05-24 21:01] LABS: ALCOHOL < 10 mg/dL (NONE DETECTED); HEMATOCRIT 45.2 % (36.0-47.0); HEMOGLOBIN 15.5 g/dL (12.0-15.5); MEAN CORPUSCULAR HGB CONC 34.2 g/dL (32.0-36.0); MEAN CORPUSCULAR VOLUME 100 fl (80-97); PLATELET COUNT 170 10^3/uL (150-450); RED BLOOD COUNT 4.54 10^6/uL (3.72-5.28); RED CELL DISTRIBUTION WIDTH 15.7 % (11.5-14.0); WHITE BLOOD COUNT 12.5 10^3/uL (4.0-10.5)
[2017-05-24 21:04] LABS: ANION GAP 24 (5-19); SODIUM 140.5 mmol/L (137-145)
[2017-05-24 21:24] LABS: ABSOLUTE LYMPHOCYTES# (MANUAL) 0.4 10^3/uL (0.5-4.7); ABSOLUTE MONOCYTES # (MANUAL) 0.1 10^3/uL (0.1-1.4); BASOPHILS % (MANUAL) 0 % (0-2); EOSINOPHILS % (MANUAL) 0 % (0-6); LYMPHOCYTES % (MANUAL) 3 % (13-45); MONOCYTES % (MANUAL) 1 % (3-13); SEGMENTED NEUTROPHILS % (MAN) 96 % (42-78); TOTAL CELLS COUNTED 100
[2017-05-24 21:26] LABS: ANISOCYTOSIS SLIGHT; POLYCHROMASIA SLIGHT
[2017-05-24 21:27] LABS: PLATELET CLUMPS PRESENT; PLATELET COMMENT ADEQUATE; TOXIC VACUOLATION PRESENT
[2017-05-24] MEDS: MAGNESIUM SULFATE/D5W 1 GM/100 ML RTUPB IV SCH ×2 (21:52→22:51)
--- NOTE | 2017-05-24 22:56 | ER Document Report ---
ED General - General Chief Complaint: Breathing Difficulty Stated Complaint: TROUBLE BREATHING Time Seen by Provider: 05/24/17 19:48 Mode of Arrival: Medic Information source: Patient, Emergency Med Personnel Notes: Patient is a 46-year-old female who presents to the emergency department via EMS for chief complaint of shortness of breath with nausea vomiting diarrhea that started yesterday. Patient reports that her last alcoholic beverage was yesterday and that she usually drinks 1/5 a day. EMS reports the patient was tachycardic in the 130s-180s during transport, they attempted to give her 6 mg of adenosine with no rhythm change. EMS also reports giving patient 1 albuterol treatment and 125 mg of Solu-Medrol IV for what they perceived as an asthma exacerbation. Patient states that she has a history of asthma and high blood pressure and states that she has been off of her medications, patient also reports that she has had seizures previously when she has stopped drinking alcohol. Patient does report generalized abdominal pain. TRAVEL OUTSIDE OF THE [place] 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 Denies: Hx Hiatal Hernia, Hx Pancreatitis, Hx Ulcer Musculoskeltal Medical History: Denies Hx Arthritis Psychiatric Medical History: Reports: Hx Depression Denies: Hx Bipolar Disorder, Hx Schizophrenia Traumatic Medical History: Reports: Hx Fractures - R. leg. Pt. has a steel debi. Past Surgical History: Reports: Hx Appendectomy, Hx Cholecystectomy, Hx Orthopedic Surgery - right knee, Hx Tonsillectomy, Hx Tubal Ligation. Denies: Hx Bowel Surgery, Hx Section, Hx Hysterectomy, Hx Mastectomy - Immunizations Hx Diphtheria, Pertussis, Tetanus Vaccination: No Hx Pneumococcal Vaccination: 05/05/11 Review of Systems - Review of Systems Constitutional: Diaphoresis EENT: No symptoms reported Cardiovascular: See HPI Respiratory: Short of breath Gastrointestinal: See HPI Genitourinary: No symptoms reported Female Genitourinary: No symptoms reported Musculoskeletal: No symptoms reported Skin: No symptoms reported Hematologic/Lymphatic: No symptoms reported Neurological/Psychological: Anxiety, Tremor Physical Exam - Vital signs Vitals: Pulse Ox 97 05/24/17 19:47 - Notes Notes: PHYSICAL EXAMINATION: GENERAL: ill-appearing, diaphoretic, flushed. HEAD: Atraumatic, normocephalic. EYES: Pupils equal round and reactive to light, extraocular movements intact, conjunctiva are normal. ENT: Nares patent, oropharynx clear without exudates. Moist mucous membranes. NECK: Normal range of motion, supple without lymphadenopathy LUNGS: Hyperventilating. Breath sounds clear to auscultation bilaterally and equal. No wheezes rales or rhonchi. HEART: Tachycardia, extra systoles. ABDOMEN: Soft, mildly tender, nondistended abdomen. No guarding, no rebound. No masses appreciated. Female : deferred Musculoskeletal: Normal range of motion, no pitting or edema. No cyanosis. NEUROLOGICAL: Cranial nerves grossly intact. Normal speech. Normal sensory, motor exams PSYCH: Anxious, cooperative. SKIN: Diaphoretic, flushed, normal turgor, no rashes or lesions noted. Course - Re-evaluation Re-evalutation: 05/24/17 1950 On initial examination of patient, patient short of breath and hyperventilating. Patient is able to answer questions. Patient reports that she has been vomiting since yesterday and has had 2 episodes of diarrhea today. Patient reports that she has not had any alcohol since yesterday and she usually drinks 1/5 a day. Initial heart rate on air sampling and monitoring 112. Patient alert, oriented, very tremulous, lung sounds clear bilaterally and no respiratory distress noted. EKG shows a-flutter, ventricular rate 162. Will initiate diltiazem bolus and start diltiazem drip. Patient with mild tremors, no vomiting since arrival to department. Ativan will be given as well as IVF boluses. 05/24/172249 Upon re-assessment, diltiazem drip was not infusing as it was clamped. Patients HR was 150, spoke with Dr. Thurston who recommended an additional bolus of 10mg. Orders entered. 05/24/172306 Prior to patient having additional bolus, patient HR down to 115. Bolus diltiazem cancelled. Patient having increasing tremor, orders placed for additional ativan IV. Reevaluation reveals mild abdominal tenderness , no guarding, non-rigid, does not appear to be a surgical abdomen. Bicarb 16, ketones in urine, non-specific LFT elevations consistent with chronic alcoholism. 05/24/172319 Contacted hospitalist, Dr. Santigao, for admission. He is coming to see patient. [id number] Patient accepted for admission. - Vital Signs Vital signs: Temp Pulse Resp BP Pulse Ox 92 38 H 139/93 H 89 L 05/25/17 04:00 05/25/17 01:46 05/25/17 04:00 05/25/17 04:00 - Laboratory Result Diagrams: 05/24/17 20:25 05/24/17 20:25 Laboratory results interpreted by me: 05/24/17 05/24/17 05/24/17 19:48 20:25 20:25 WBC 12.5 H MCV 100 H MCH 34.0 H RDW 15.7 H Seg Neuts % (Manual) 96 H Lymphocytes % (Manual) 3 L Monocytes % (Manual) 1 L Abs Neuts (Manual) 12.0 H Abs Lymphs (Manual) 0.4 L Potassium 3.3 L Carbon Dioxide 16 L Anion Gap 24 H Glucose 135 H POC Glucose 135 H Calcium 8.1 L Magnesium 0.5 L* Total Bilirubin 2.2 H Direct Bilirubin 1.1 H AST 167 H ALT 82 H Alkaline Phosphatase 161 H Creatine Kinase 339 H Total Protein 8.8 H Urine Protein Urine Ketones Urine Blood 05/24/17 23:31 WBC MCV MCH RDW Seg Neuts % (Manual) Lymphocytes % (Manual) Monocytes % (Manual) Abs Neuts (Manual) Abs Lymphs (Manual) Potassium Carbon Dioxide Anion Gap Glucose POC Glucose Calcium Magnesium Total Bilirubin Direct Bilirubin AST ALT Alkaline Phosphatase Creatine Kinase Total Protein Urine Protein >=500 H Urine Ketones 80 H Urine Blood MODERATE H Critical Care Note - Critical Care Note Total time excluding time spent on procedures (mins): 45 - Afib with RVR, ETOH withdrawal Comments: 45 minutes of critical care time spent in direct contact evaluating and reevaluating the patient, treating symptoms, reviewing labs and studies and consultants excluding any procedures Discharge - Discharge Clinical Impression: Atrial fibrillation with RVR, Hypomagnesemia Alcohol withdrawal Qualifiers: Complication of substance-induced condition: with unspecified complication Qualified Code(s): F10.239 - Alcohol dependence with withdrawal, unspecified Vomiting Qualifiers: Vomiting type: unspecified Vomiting Intractability: non-intractable Nausea presence: with nausea Qualified Code(s): R11.2 - Nausea with vomiting, unspecified Condition: Fair Disposition: ADMITTED INPATIENT Admitting Provider: Hospitalist Unit Admitted: [facility]
[2017-05-24] MEDS ORDERED: THIAMINE HCL 100 MG in NORMAL SALINE 50 ML IV ONE (23:06)
[2017-05-24 23:46] LABS: APPEARANCE,URINE SLIGHTLY-CLOUDY; BILIRUBIN,URINE NEGATIVE (NEGATIVE); COLOR,URINE YELLOW; GLUCOSE, URINE NEGATIVE (NEGATIVE); KETONES,URINE 80 mg/dL (NEGATIVE); LEUKOCYTE ESTERASE,URINE NEGATIVE (NEGATIVE); NITRITE,URINE NEGATIVE (NEGATIVE); PROTEIN,URINE >=500 mg/dL (NEGATIVE); URINE SPECIFIC GRAVITY 1.015; UROBILINOGEN,URINE NEGATIVE mg/dL (<2.0)
[2017-05-24] MEDS ORDERED: ONDANSETRON HCL INJ/PF 4 MG/2 ML SDV IV PRN (23:47)
[2017-05-24 23:56] LABS: URINE AMPHETAMINES SCREEN NEGATIVE; URINE BARBITURATES SCREEN NEGATIVE; URINE BENZODIAZEPINES SCREEN NEGATIVE; URINE COCAINE SCREEN NEGATIVE; URINE MARIJUANA (THC) SCREEN NEGATIVE; URINE METHADONE SCREEN NEGATIVE; URINE PHENCYCLIDINE SCREEN NEGATIVE
--- NOTE | 2017-05-25 00:08 | PDOC H&P ---
History of Present Illness Admission Date/PCP: 05/24/17 23:46 BERNIE SAVAGE MD History of Present Illness: FABIANA HAED is a 46 year old female patient who is a known case of alcoholic and frequent admission to this hospital with EtOH withdrawal. She presents today with chief complaints of vomiting and an episode of seizure at home. Of note patient drinks hard liquor namely vodka 750 mL daily. The last 2 days she ran out of vodka and started to have vomiting diarrhea and an episode of seizure. When I saw the patient she was tremulous and anxious. Her initial lab evaluation shows hypomagnesemia of 0.5. EKG also revealed atrial flutter at a rate of 162/min. Patient reverted to sinus after she was given a dose of Cardizem. Patient denied any fevers, chills, chest pain, cough, palpitation but she has diaphoresis. 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, Hypertension Denies: Atrial Fibrillation, Congestive Heart Failure, Hyperlipidema, Heart Murmur Pulmonary Medical History: Reports: Asthma, Chronic Obstructive Pulmonary Disease (COPD) Denies: Bronchitis, Pneumonia, Respiratory Failure, Sleep Apnea, Tuberculosis Neurological Medical History: Reports: Seizures Renal/ Medical History: Denies: None, Chronic Kidney Disease, End Stage Renal Disease, Nephrolithiasis, Other GI Medical History: Reports: Gastroesophageal Reflux Disease Denies: Hiatal Hernia Musculoskeltal Medical History: Denies: Arthritis Psychiatric Medical History: Reports: Depression Denies: Bipolar Disorder Past Surgical History Past Surgical History: Reports: Appendectomy, Cholecystectomy, Orthopedic Surgery - right knee, Tonsillectomy, Tubal Ligation Denies: Amputation, Section, Hysterectomy, Mastectomy Social History Smoking Status: Never Smoker Frequency of Alcohol Use: Heavy Hx Recreational Drug Use: No Drugs: None Hx Prescription Drug Abuse: No Family History Family History: Reviewed & Not Pertinent, Hypertension Parental Family History Reviewed: Yes Children Family History Reviewed: No Sibling(s) Family History Reviewed.: No Medication/Allergy Home Medications: Albuterol Sulfate [Proair HFA Inhalation Aerosol 8.5 gm MDI] 2 puff IH Q6HP PRN 03/27/17 Alprazolam [Xanax 0.5 mg Tablet] 0.5 mg PO Q8HP PRN 03/27/17 Clonidine HCl [Catapres 0.1 mg Tablet] 0.1 mg PO Q12 03/27/17 Hydrochlorothiazide [Hydrodiuril 25 mg Tablet] 25 mg PO DAILY 03/27/17 Levothyroxine Sodium [Synthroid 0.088 mg Tablet] 0.088 mg PO Q6AM 03/27/17 Lurasidone HCl [Latuda] 20 mg PO [id number] 03/27/17 Sertraline HCl [Zoloft] 150 mg PO DAILY 03/27/17 Folic Acid [Folvite 1 mg Tablet] 1 mg PO DAILY tablet 04/03/17 Multivitamin [Tab-A-Meseret (Multiple Vitamin) Tablet] 1 tab PO DAILY tablet 04/03 Thiamine HCl [Thiamine 100 mg Tablet] 100 mg PO DAILY 30 Days #30 tablet Allergies/Adverse Reactions: No Known Allergies Allergy (Verified 06/08/14 00:01) Review of Systems Constitutional: PRESENT: as per HPI Cardiovascular: ABSENT: chest pain, dyspnea on exertion, edema, orthropnea, palpitations Respiratory: PRESENT: dyspnea Gastrointestinal: PRESENT: diarrhea, nausea, vomiting Neurological: PRESENT: tremor(s) Psychiatric: PRESENT: anxiety Physical Exam Vital Signs: Temp Pulse Resp BP Pulse Ox 156 H 25 H 156/106 H 88 L 05/24/17 20:02 05/24/17 23:01 05/24/17 23:01 05/24/17 23:01 General appearance: PRESENT: mild distress Mouth exam: PRESENT: dry mucosa Respiratory exam: PRESENT: decreased breath sounds Cardiovascular exam: PRESENT: tachycardia Pulses: PRESENT: normal carotid pulses GI/Abdominal exam: PRESENT: normal bowel sounds, soft. ABSENT: distended, guarding, mass, organolmegaly, rebound, tenderness Psychiatric exam: PRESENT: agitated Results Impressions: Chest X-Ray 05/24/17 19:50 IMPRESSION: NO ACUTE RADIOGRAPHIC FINDING IN THE CHEST. Assessment & Plan - Diagnosis (1) Withdrawal seizures Qualifiers: Complication of substance-induced condition: uncomplicated Qualified Code(s ): F19.230 - Other psychoactive substance dependence with withdrawal, uncomplicated Is this a current diagnosis for this admission?: Yes Plan: Patient started on Keppra 500 mg IV twice a day. Aspiration and fall precaution. (2) Alcohol withdrawal Qualifiers: Complication of substance-induced condition: with unspecified complication Qualified Code(s): F10.239 - Alcohol dependence with withdrawal, unspecified Is this a current diagnosis for this admission?: Yes Plan: Patient started on Ativan as needed and scheduled diazepam. Normal saline for hydration and she is also started on folic acid thiamine and magnesium. (3) Atrial fibrillation with RVR Is this a current diagnosis for this admission?: Yes Plan: This is a new onset atrial fibrillation. And reverted to sinus rhythm. Continuous cardiac monitoring. (4) Hypomagnesemia Is this a current diagnosis for this admission?: Yes Plan: We will replete and check magnesium level in a.m. - Time Time Spent: 30 to 50 Minutes - Inpatient Certification Medical Necessity: Need For IV Fluids
[2017-05-25] MEDS ORDERED: THIAMINE HCL INJ 200 MG/2 ML VIAL ONE (00:09)
[2017-05-25] MEDS ORDERED: DIAZEPAM 5 MG TABLET PO ONE (00:15)
[2017-05-25] MEDS ORDERED: THIAMINE HCL INJ 200 MG/2 ML VIAL IV PRN (00:24)
[2017-05-25] MEDS ORDERED: FOLIC ACID INJ 5 MG/1 ML 10 ML VIAL IV PRN (00:25)
[2017-05-25] MEDS ORDERED: IPRATROPIUM/ALBUTEROL 0.5-2.5 MG/3 ML AMPUL NEB ONE (00:30)
[2017-05-25] MEDS ORDERED: LEVETIRACETAM 500 MG/NACL-ISO 500 MG/100 ML RTUPB IV ONE (00:30)
[2017-05-25] MEDS ORDERED: METOPROLOL TARTRATE 25 MG TABLET PO ONE (00:30)
[2017-05-25] MEDS: NORMAL SALINE 1000 ML 1,000 ML IV PRN ×2 (01:20→14:02)
[2017-05-25] MEDS: LORAZEPAM INJ 2 MG/1 ML VIAL IV PRN (02:40)
[2017-05-25] MEDS ORDERED: DILTIAZEM HCL 60 MG TABLET PO ONE (04:15)
[2017-05-25 06:29] LABS: ALANINE AMINOTRANSFERASE 71 U/L (9-52); ALBUMIN 3.3 g/dL (3.5-5.0); ALKALINE PHOSPHATASE 110 U/L (38-126); ANION GAP 14 (5-19); ASPARTATE AMINO TRANSFERASE 127 U/L (14-36); BILIRUBIN,DIRECT 0.6 mg/dL (0.0-0.4); BILIRUBIN,TOTAL 1.3 mg/dL (0.2-1.3); BLOOD UREA NITROGEN 12 mg/dL (7-20); CARBON DIOXIDE 17 mmol/L (22-30); CHLORIDE 106 mmol/L (98-107); GLUCOSE 133 mg/dL (75-110); POTASSIUM 3.6 mmol/L (3.6-5.0); SODIUM 137.3 mmol/L (137-145)
[2017-05-25 06:38] LABS: CALCIUM 6.7 mg/dL (8.4-10.2)
[2017-05-25 06:44] LABS: ABSOLUTE LYMPHOCYTES (AUTO) 0.5 10^3/uL (0.5-4.7); ABSOLUTE MONOCYTES (AUTO) 0.2 10^3/uL (0.1-1.4); ABSOLUTE NEUT (AUTO) 6.3 10^3/uL (1.7-8.2); BASOPHILS % (AUTO) 0.2 % (0-2); HEMATOCRIT 37.6 % (36.0-47.0); LYMPHOCYTES % (AUTO) 7.4 % (13-45); MEAN CORPUSCULAR HEMOGLOBIN 34.4 pg (27.0-33.4); MEAN CORPUSCULAR HGB CONC 34.3 g/dL (32.0-36.0); MEAN CORPUSCULAR VOLUME 100 fl (80-97); MONOCYTES % (AUTO) 2.8 % (3-13); PLATELET COUNT 122 10^3/uL (150-450); RED BLOOD COUNT 3.76 10^6/uL (3.72-5.28); RED CELL DISTRIBUTION WIDTH 15.3 % (11.5-14.0); SEGMENTED NEUTROPHILS % (AUTO) 89.6 % (42-78); TOTAL CELLS COUNTED % (AUTO) 100 %; WHITE BLOOD COUNT 7.1 10^3/uL (4.0-10.5)
[2017-05-25] MEDS: LANSOPRAZOLE 30 MG TAB.RAP.DR PO SCH (06:44)
[2017-05-25] MEDS: DIAZEPAM 5 MG TABLET PO SCH ×3 (06:44→22:27)
[2017-05-25 06:45] LABS: HEMOGLOBIN 12.9 g/dL (12.0-15.5)
[2017-05-25] MEDS ORDERED: MAGNESIUM SULFATE 2 GM/50 ML RTUPB IV ONE (07:00)
[2017-05-25] MEDS ORDERED: IPRATROPIUM/ALBUTEROL 0.5-2.5 MG/3 ML AMPUL NEB SCH (08:00)
[2017-05-25] MEDS: MAGNESIUM SULFATE 1 GM/D5W 100 ML IV SCH ×4 (08:34→17:13)
[2017-05-25] MEDS ORDERED: IPRATROPIUM/ALBUTEROL 0.5-2.5 MG/3 ML AMPUL NEB PRN (08:57)
--- NOTE | 2017-05-25 09:02 | PDOC PROGRESS REPORT ---
Subjective Progress Note for:: 05/25/17 Subjective:: 46 yo female with alcoholism presented to hospital after having a seizure at home. She was tremulous, hypertensive, and tachycardic. She was admitted for EtOH withdrawal. In the ED, she was actually in rapid Afib. She was treated with a diltiazem bolus and NaCl bolus. HR normalized afterwards. 05/25 She feels better today, but still has tremors. Reason For Visit: ACUTE ALCOHOL WITHDRAWAL, WITHDRAWAL SEIZURE, Physical Exam Vital Signs: Temp Pulse Resp BP Pulse Ox 99.0 F 88 18 133/90 H 94 05/25/17 08:01 05/25/17 08:01 05/25/17 08:01 05/25/17 08:01 05/25/17 08:01 Intake & Output 05/24/17 05/25/17 05/26/17 06:59 06:59 06:59 Intake Total 500 Balance 500 Weight 93.1 kg General appearance: PRESENT: disheveled, obese Head exam: PRESENT: atraumatic, normocephalic Eye exam: PRESENT: EOMI, PERRLA Neck exam: ABSENT: carotid bruit, JVD, lymphadenopathy, thyromegaly Respiratory exam: PRESENT: clear to auscultation thomas. ABSENT: rales, rhonchi, wheezes Cardiovascular exam: PRESENT: RRR. ABSENT: diastolic murmur, rubs, systolic murmur Musculoskeletal exam: PRESENT: normal inspection Neurological exam: PRESENT: alert, awake, oriented to person, oriented to place , oriented to time, oriented to situation, CN II-XII grossly intact. ABSENT: motor sensory deficit Psychiatric exam: PRESENT: appropriate affect, normal mood. ABSENT: homicidal ideation, suicidal ideation Results Laboratory Results: 05/25/17 05:58 05/25/17 05:58 05/25/17 05/25/17 05/25/17 05:58 05:58 05:58 WBC 7.1 RBC 3.76 Hgb 12.9 D Hct 37.6 MCV 100 H MCH 34.4 H MCHC 34.3 RDW 15.3 H Plt Count 122 L Seg Neutrophils % 89.6 H Lymphocytes % 7.4 L Monocytes % 2.8 L Eosinophils % 0.0 Basophils % 0.2 Absolute Neutrophils 6.3 Absolute Lymphocytes 0.5 Absolute Monocytes 0.2 Absolute Eosinophils 0.0 Absolute Basophils 0.0 Sodium 137.3 Potassium 3.6 Chloride 106 Carbon Dioxide 17 L Anion Gap 14 BUN 12 Creatinine 0.73 Est GFR ( Amer) > 60 Est GFR (Non-Af Amer) > 60 Glucose 133 H Calcium 6.7 L* Magnesium 0.9 L* Total Bilirubin 1.3 AST 127 H ALT 71 H Alkaline Phosphatase 110 Ammonia 17.0 Total Protein 7.0 Albumin 3.3 L Impressions: Chest X-Ray 05/24/17 19:50 IMPRESSION: NO ACUTE RADIOGRAPHIC FINDING IN THE CHEST. Assessment & Plan - Diagnosis (1) Alcohol withdrawal Qualifiers: Complication of substance-induced condition: uncomplicated Qualified Code(s ): F10.230 - Alcohol dependence with withdrawal, uncomplicated Is this a current diagnosis for this admission?: Yes Plan: Continue scheduled benzo's and prn lorazepam. Continue thiamine, folic acid, and MVI daily. (2) Hypomagnesemia Is this a current diagnosis for this admission?: Yes Plan: Replace as needed. (3) Withdrawal seizures Qualifiers: Complication of substance-induced condition: uncomplicated Qualified Code(s ): F19.230 - Other psychoactive substance dependence with withdrawal, uncomplicated Is this a current diagnosis for this admission?: Yes Plan: d/t EtOH. No indication for AEDs. (4) Hypokalemia Is this a current diagnosis for this admission?: Yes Plan: Replace as needed (5) Atrial fibrillation with RVR Is this a current diagnosis for this admission?: Yes Plan: Resolved. Repeat ECG for documentation. (6) Elevated LFTs Is this a current diagnosis for this admission?: Yes Plan: Likely due to EtOH. Monitor for now. - Time Time Spent with patient: 25-34 minutes Medications reviewed and adjusted accordingly: Yes Anticipated discharge: Home Within: within 48 hours - Inpatient Certification Based on my medical assessment, after consideration of the patient's comorbidities, presenting symptoms, or acuity I expect that the services needed warrant INPATIENT care.: Yes I certify that my determination is in accordance with my understanding of Medicare's requirements for reasonable and necessary INPATIENT services [42 CFR 412.3e].: Yes Medical Necessity: Need Close Monitoring Due to Risk of Patient Decompensation
[2017-05-25] MEDS: ENOXAPARIN SODIUM INJ 40 MG/0.4 ML DISP.SYRIN SUBCUT SCH (09:44)
[2017-05-25] MEDS: METOPROLOL TARTRATE 25 MG TABLET PO SCH ×2 (09:45→22:27)
[2017-05-25] MEDS: FOLIC ACID 1 MG TABLET PO SCH (09:45)
[2017-05-25] MEDS: MULTIVITAMIN TABLET PO SCH (09:45)
[2017-05-25] MEDS: THIAMINE HCL 100 MG TABLET PO SCH (09:45)
[2017-05-25] MEDS: LEVETIRACETAM 500 MG/NACL-ISO 500 MG/100 ML RTUPB IV SCH ×2 (09:46→22:28)
--- NOTE | 2017-05-25 09:55 | EKG REPORT ---
SEVERITY:- ABNORMAL ECG - A FLUTTER WITH 2:1 CONDUCTION INFERIOR INFARCT, AGE INDETERMINATE LATERAL LEADS ARE ALSO INVOLVED PROLONGED QT INTERVAL : Confirmed by: Hudson Alegria 25-May-2017 09:54:32
--- NOTE | 2017-05-25 09:56 | EKG REPORT ---
SEVERITY:- ABNORMAL ECG - ATRIAL FLUTTER, A-RATE 319 NON SPECIFIC IVCD PROBABLE LVH WITH SECONDARY REPOL ABNRM BORDERLINE INFERIOR Q WAVES : Confirmed by: Hudson Alegria 25-May-2017 09:55:40
[2017-05-25] MEDS ORDERED: THIAMINE HCL 100 MG, FOLIC ACID 1 MG in NORMAL SALINE 250 ML IV SCH (10:00)
--- NOTE | 2017-05-25 16:44 | EKG REPORT ---
SEVERITY:- ABNORMAL ECG - SINUS RHYTHM FIRST DEGREE AV BLOCK PROBABLE LEFT ATRIAL ABNORMALITY NONSPECIFIC T ABNORMALITIES, DIFFUSE LEADS : Confirmed by: Hudson Alegria 25-May-2017 16:42:08
[2017-05-26] MEDS: NORMAL SALINE 1000 ML 1,000 ML IV PRN (04:04)
[2017-05-26] MEDS: LANSOPRAZOLE 30 MG TAB.RAP.DR PO SCH (05:40)
[2017-05-26] MEDS: DIAZEPAM 5 MG TABLET PO SCH ×2 (05:40→13:18)
[2017-05-26 06:22] LABS: HEMATOCRIT 34.3 % (36.0-47.0); HEMOGLOBIN 11.7 g/dL (12.0-15.5); MEAN CORPUSCULAR HEMOGLOBIN 34.4 pg (27.0-33.4); MEAN CORPUSCULAR VOLUME 101 fl (80-97); PLATELET COUNT 101 10^3/uL (150-450); RED BLOOD COUNT 3.39 10^6/uL (3.72-5.28); RED CELL DISTRIBUTION WIDTH 15.3 % (11.5-14.0); WHITE BLOOD COUNT 10.1 10^3/uL (4.0-10.5)
[2017-05-26 06:45] LABS: ALANINE AMINOTRANSFERASE 50 U/L (9-52); ALKALINE PHOSPHATASE 89 U/L (38-126); ANION GAP 10 (5-19); ASPARTATE AMINO TRANSFERASE 61 U/L (14-36); BILIRUBIN,DIRECT 0.5 mg/dL (0.0-0.4); BILIRUBIN,TOTAL 0.7 mg/dL (0.2-1.3); BLOOD UREA NITROGEN 15 mg/dL (7-20); CALCIUM 7.2 mg/dL (8.4-10.2); CARBON DIOXIDE 23 mmol/L (22-30); CHLORIDE 105 mmol/L (98-107); GLUCOSE 77 mg/dL (75-110); POTASSIUM 3.1 mmol/L (3.6-5.0); SODIUM 137.7 mmol/L (137-145); TOTAL PROTEIN 6.4 g/dL (6.3-8.2)
[2017-05-26] MEDS ORDERED: POTASSIUM CHLORIDE 20 MEQ/15 ML UDCUP PO ONE (09:30)
[2017-05-26] MEDS: ENOXAPARIN SODIUM INJ 40 MG/0.4 ML DISP.SYRIN SUBCUT SCH (09:51)
[2017-05-26] MEDS: FOLIC ACID 1 MG TABLET PO SCH (09:51)
[2017-05-26] MEDS: MULTIVITAMIN TABLET PO SCH (09:52)
[2017-05-26] MEDS: THIAMINE HCL 100 MG TABLET PO SCH (09:52)
[2017-05-26] MEDS: METOPROLOL TARTRATE 25 MG TABLET PO SCH (09:52)
[2017-05-26] MEDS ORDERED: LEVETIRACETAM 500 MG TABLET PO SCH (10:00)
[2017-05-26] MEDS ORDERED: ERYTHROMYCIN 0.5% OPH OINT 1 GM UNIT DOSE OU SCH (10:00)
[2017-05-26] MEDS ORDERED: MAGNESIUM SULFATE/D5W 1 GM/100 ML RTUPB IV ONE (10:00)
[2017-05-26] MEDS ORDERED: ERYTHROMYCIN 0.5% OPH OINTMENT 3.5 GM TUBE OU SCH (10:00)
--- NOTE | 2017-05-26 10:17 | RADIOLOGY REPORT (SQ) ---
EXAM DESCRIPTION: CT HEAD WITHOUT COMPLETED DATE/TIME: 05/26/2017 9:27 am REASON FOR STUDY: seizure alcohol withdrawal COMPARISON: 03/27/2017 TECHNIQUE: Axial images acquired through the brain without intravenous contrast. Images reviewed wi th bone, brain and subdural windows. Images stored on PACS. All CT scanners at this facility use dose modulation, iterative reconstruction, and/or weight based d osing when appropriate to reduce radiation dose to as low as reasonably achievable (ALARA). [facility]: Dose Right [facility]: CareDose [facility]: Dose Right [facility]: Teradose 4D [facility]: Smart [employer] RADIATION DOSE: CT Rad equipment meets quality standard of care and radiation dose reduction techniq ues were employed. CTDIvol: 48.7 mGy. DLP: 955 mGy-cm. mGy. LIMITATIONS: None. FINDINGS: VENTRICLES: Prominent. CEREBRUM: No masses. No hemorrhage. No midline shift. Areas of low density in the white matter mos t likely due to chronic micro-vascular ischemic change. No evidence for acute infarction. CEREBELLUM: No masses. No hemorrhage. No alteration of density. No evidence for acute infarction. EXTRAAXIAL SPACES: Mild age-related involutional change. No fluid collections. No masses. ORBITS AND GLOBE: No intra- or extraconal masses. Normal contour of globe without masses. CALVARIUM: No fracture. PARANASAL SINUSES: No fluid or mucosal thickening. SOFT TISSUES: No mass or hematoma. OTHER: No other significant finding. IMPRESSION: MILD CHRONIC CHANGES OF ATROPHY AND MICROVASCULAR ISCHEMIA. NO ACUTE PROCESS. EVIDENCE OF ACUTE STROKE: NO. TECHNICAL DOCUMENTATION: JOB ID: [id number] Quality ID # [id number]: Final reports with documentation of one or more dose reduction techniques (e.g., Au tomated exposure control, adjustment of the mA and/or kV according to patient size, use of iterative reconstruction technique) 2010 [employer]- All Rights Reserved Reading location - IP/workstation name: [email or web address]
[2017-05-26] MEDS: LORAZEPAM INJ 2 MG/1 ML VIAL IV PRN (14:42)
[2017-05-26 16:28] VITALS: BP 133/80
--- NOTE | 2017-05-26 17:13 | PDOC DISCHARGE SUMMARY ---
General - Admit/Disc Date/PCP Admission Date/Primary Care Provider: 05/24/17 23:46 BERNIE SAVAGE MD Discharge Date: 05/26/17 - Additional Information Home Medications: Albuterol Sulfate [Proair HFA Inhalation Aerosol 8.5 gm MDI] 2 puff HE Q6HP PRN 05/25/17 Alprazolam [Xanax 0.5 mg Tablet] 0.5 mg PO Q8HP PRN 05/25/17 Clonidine HCl [Catapres 0.1 mg Tablet] 0.1 mg PO Q12 05/25/17 Hydrochlorothiazide [Hydrodiuril 25 mg Tablet] 25 mg PO DAILY 05/25/17 Ibuprofen [Motrin 600 mg Tablet] 600 mg PO Q8 05/25/17 Levothyroxine Sodium [Synthroid 0.088 mg Tablet] 0.088 mg PO Q6AM 05/25/17 Lurasidone HCl [Latuda] 20 mg PO DAILY 05/25/17 Multivitamin [Multiple Vitamins] 1 tab PO DAILY 05/25/17 Sertraline HCl [Zoloft] 150 mg PO DAILY 05/25/17 History of Present Illness Patient complains of: Alcohol withdrawal History of Present Illness: FABIANA HEAD is a 46 year old female FABIANA HEAD is a 46 year old female patient who is a known case of alcoholic and frequent admission to this hospital with EtOH withdrawal. She presents today with chief complaints of vomiting and an episode of seizure at home. Of note patient drinks hard liquor namely vodka 750 mL daily. The last 2 days she ran out of vodka and started to have vomiting diarrhea and an episode of seizure. When I saw the patient she was tremulous and anxious. Her initial lab evaluation shows hypomagnesemia of 0.5. EKG also revealed atrial flutter at a rate of 162/min. Patient reverted to sinus after she was given a dose of Cardizem. Patient denied any fevers, chills, chest pain, cough, palpitation but she has diaphoresis. Hospital Course Hospital Course: 1 alcohol withdrawal Patient was treated with intermittent Ativan IV , Valium p.o., thiamine supplementation She became less tremulous in the mentation was improved She did not have any recurrent seizures Patient did not wish to stay; she did sign AMA Patient was fully oriented and ambulatory at the time she signed AGAINST MEDICAL ADVICE 2 conjunctivitis Patient was treated with erythromycin ophthalmic ointment during her stay 3 electrolyte imbalance Magnesium and potassium were replaced Patient was not given any prescriptions at discharge 4 paroxysmal A. fib with RVR Resolved Patient converted to normal sinus rhythm Patient was scheduled for an echocardiogram , but she signed AMA prior to test being performed Physical Exam Vital Signs: Temp Pulse Resp BP Pulse Ox 97.9 F 69 16 133/80 H 100 05/26/17 15:13 05/26/17 15:13 05/26/17 15:13 05/26/17 15:13 05/26/17 15:13 Intake & Output 05/25/17 05/26/17 05/27/17 00:59 00:59 00:59 Intake Total 4050 3200 Balance 4050 3200 Weight 93.1 kg 98.6 kg General appearance: PRESENT: no acute distress, disheveled Head exam: PRESENT: atraumatic, normocephalic Eye exam: PRESENT: conjunctival injection, EOMI, PERRLA, other - Purulent drainage both eyes. ABSENT: scleral icterus Respiratory exam: PRESENT: clear to auscultation thomas. ABSENT: rales, rhonchi, wheezes Cardiovascular exam: PRESENT: RRR. ABSENT: diastolic murmur, rubs, systolic murmur GI/Abdominal exam: PRESENT: normal bowel sounds, soft. ABSENT: distended, guarding, mass, organolmegaly, rebound, tenderness Neurological exam: PRESENT: alert, oriented to person, oriented to place, oriented to time, CN II-XII grossly intact, normal gait Psychiatric exam: PRESENT: agitated. ABSENT: flat affect, homicidal ideation, suicidal ideation Results Laboratory Results: 05/26/17 05:07 05/26/17 05:07 05/25/17 05/26/17 05/26/17 20:00 05:07 05:07 WBC 10.1 RBC 3.39 L Hgb 11.7 L Hct 34.3 L MCV 101 H MCH 34.4 H MCHC 34.0 RDW 15.3 H Plt Count 101 L Sodium 137.7 Potassium 3.1 L Chloride 105 Carbon Dioxide 23 Anion Gap 10 BUN 15 Creatinine 0.72 Est GFR ( Amer) > 60 Est GFR (Non-Af Amer) > 60 Glucose 77 Calcium 7.2 L Magnesium 1.9 1.5 L Total Bilirubin 0.7 AST 61 H ALT 50 Alkaline Phosphatase 89 Total Protein 6.4 Albumin 3.0 L Impressions: Chest X-Ray 05/24/17 19:50 IMPRESSION: NO ACUTE RADIOGRAPHIC FINDING IN THE CHEST. Head CT 05/26/17 08:48 IMPRESSION: MILD CHRONIC CHANGES OF ATROPHY AND MICROVASCULAR ISCHEMIA. NO ACUTE PROCESS. EVIDENCE OF ACUTE STROKE: NO. Qualifiers - * PATEINT BEING DISCHARGED WITH ANY OF THE FOLLOWING DIAGNOSIS?: No Plan Discharge Plan: Patient signed AMA Time Spent: Greater than 30 Minutes
--- NOTE | 2017-05-30 10:48 | EEG PRO FEE REPORT ---
EEG INTERPRETATION PATIENT NAME: FABIANA HEAD ROOM#: 301 ORDER#: [id number] DATE OF STUDY: 05/26/2017 : 1970 REFERRING MD: Yanet Matias MD DIAGNOSIS: Seizure REPORT The background activity consists of 8-10 Hz alpha with a lot of superimposed motion artifact. No clear further focal slowing, amplitude asymmetry, or true epileptiform discharges are seen. Again there is motion artifact scattered throughout the entire tracing. IMPRESSION Normal EEG with excess motion artifact. INTERPRETING PHYSICIAN: MARIO MEDEROS M.D. /: MTEFFT TT: [id number] ID: [id number] /: [id number] TD: [id number] JOB: [id number] cc:MARIO MEDEROS M.D. [facility],
== END 2017-05-26 17:00 | disposition left against medical advice (07) | DRG 894 ==
LOC: ER 19:38 → EH 23:46 → 3N 05-25 02:04
PROVIDERS: ADMIT Internal Medicine; ATTEND Internal Medicine
DX: F10.239 Alcohol dependence with withdrawal, unspecified (principal); G40.509 Epileptic seizures related to external causes, not intractable, without status epilepticus; I48.91 Unspecified atrial fibrillation; I10 Essential (primary) hypertension; J44.9 Chronic obstructive pulmonary disease, unspecified; K21.9 Gastro-esophageal reflux disease without esophagitis; E83.42 Hypomagnesemia; H10.9 Unspecified conjunctivitis; E87.8 Other disorders of electrolyte and fluid balance, not elsewhere classified; F32.9 Major depressive disorder, single episode, unspecified; Y90.0 Blood alcohol level of less than 20 mg/100 ml; I25.2 Old myocardial infarction; Z79.51 Long term (current) use of inhaled steroids; Z79.899 Other long term (current) drug therapy
CPT/HCPCS: 36415; 70450; 71045; 80053; 80307; 81001; 82140; 82550; 82962; 83690; 83735; 84100; 84443; 84484; 84703; 85025; 85027; 87070; 87205; 93005; 93010; 94640; 95819; 96365; 96366; 96368; 96375; 96376; 99285; G8978-GP; G8979-GP; G8980-GP; J1650; J1953; J2060; J2405; J3411; J3475; J3490; J7030; J7620

== ENCOUNTER 2017-06-17 15:26 | Emergency (ER) | payer MEDICARE ==
--- NOTE | 2017-06-17 15:50 | ER Document Report ---
ED General - General Chief Complaint: ETOH Abuse Stated Complaint: ETOH Time Seen by Provider: 06/17/17 15:29 Mode of Arrival: Medic Information source: Patient Notes: 46-year-old chronic alcoholic presents with complaints of neck numbness. Initial EMS call stated that she drank 1/5 of a pint of vodka and that she wanted to get sober. Patient on my evaluation only notes that the reason she called EMS was because her neck became stiff, she still gets her neck gets stiff whenever she seizes but admits that she did not seize today. Her last seizure was May 31. TRAVEL OUTSIDE OF THE [place] IN LAST 30 DAYS: No - HPI Onset: Just prior to arrival Onset/Duration: Sudden Quality of pain: Achy Severity: Mild Pain Level: 1 Associated symptoms: Body/muscle aches - 81 Exacerbated by: Movement Relieved by: Denies Similar symptoms previously: Yes Recently seen / treated by doctor: No - Related Data Allergies/Adverse Reactions: No Known Allergies Allergy (Verified 06/08/14 00:01) Past Medical History - Social History Smoking Status: Current Every Day Smoker Cigarette use (# per day): Yes Chew tobacco use (# tins/day): No Smoking Education Provided: No Family History: Reviewed & Not Pertinent - Past Medical History Cardiac Medical History: Reports: 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 , Hx Hypertension Denies: Hx Atrial Fibrillation, Hx Congestive Heart Failure, Hx Hypercholesterolemia, Hx Heart Murmur Pulmonary Medical History: Reports: Hx Asthma, Hx COPD Denies: Hx Bronchitis, Hx Pneumonia, Hx Respiratory Failure, Hx Sleep Apnea, Hx Tuberculosis Neurological Medical History: Reports: Hx Seizures Renal/ Medical History: Denies: Hx End Stage Renal Disease, Hx Peritoneal Dialysis GI Medical History: Reports: Hx Gastroesophageal Reflux Disease. Denies: Hx Hiatal Hernia, Hx Pancreatitis, Hx Ulcer Musculoskeltal Medical History: Denies Hx Arthritis Psychiatric Medical History: Reports: Hx Depression Denies: Hx Bipolar Disorder, Hx Schizophrenia Traumatic Medical History: Reports: Hx Fractures - R. leg. Pt. has a steel debi. Past Surgical History: Reports: Hx Appendectomy, Hx Cholecystectomy, Hx Orthopedic Surgery - right knee, Hx Tonsillectomy, Hx Tubal Ligation. Denies: Hx Bowel Surgery, Hx Section, Hx Hysterectomy, Hx Mastectomy - Immunizations Hx Diphtheria, Pertussis, Tetanus Vaccination: No Hx Pneumococcal Vaccination: 05/05/11 Review of Systems - Review of Systems Notes: REVIEW OF SYSTEMS: CONSTITUTIONAL : Denies fever, chills, or sweats. Denies recent illness. Admits to drinking EENT: Admits to neck pain numbness CARDIOVASCULAR: Denies chest pain. Denies palpitations or racing or irregular heart beat. Denies ankle edema. RESPIRATORY: Denies cough, cold, or chest congestion. Denies shortness of breath, difficulty breathing, or wheezing. GASTROINTESTINAL: Denies abdominal pain or distention. Denies nausea, vomiting , or diarrhea. Denies blood in vomitus, stools, or per rectum. Denies black, tarry stools. Denies constipation. GENITOURINARY: Denies difficulty urinating, painful urination, burning, frequency, blood in urine, or discharge. FEMALE GENITOURINARY: Denies vaginal bleeding, heavy or abnormal periods, irregular periods. Denies vaginal discharge or odor. MUSCULOSKELETAL: Denies back or neck pain or stiffness. Denies joint pain or swelling. SKIN: Denies rash, lesions or sores. HEMATOLOGIC : Denies easy bruising or bleeding. LYMPHATIC: Denies swollen, enlarged glands. NEUROLOGICAL: Admits to history of seizures PSYCHIATRIC: Denies anxiety or stress. Denies depression, suicidal ideation, or homicidal ideation. ALL OTHER SYSTEMS REVIEWED AND NEGATIVE. PHYSICAL EXAMINATION: GENERAL: Well-appearing, well-nourished and in no acute distress. HEAD: Atraumatic, normocephalic. EYES: Pupils equal round and reactive to light, extraocular movements intact, conjunctiva are normal. ENT: Nares patent, oropharynx clear without exudates. Moist mucous membranes. NECK: Normal range of motion, supple without lymphadenopathy patient admits to generalized tenderness upon palpation LUNGS: Breath sounds clear to auscultation bilaterally and equal. No wheezes rales or rhonchi. HEART: Regular rate and rhythm without murmurs ABDOMEN: Soft, nontender, nondistended abdomen. No guarding, no rebound. No masses appreciated. Female : deferred Musculoskeletal: Normal range of motion, no pitting or edema. No cyanosis. NEUROLOGICAL: Cranial nerves grossly intact. Normal speech, normal gait. Normal sensory, motor exams PSYCH: Normal mood, normal affect. SKIN: Warm, Dry, normal turgor, no rashes or lesions noted. Dictation was performed using Dragon voice recognition software Physical Exam - Vital signs Vitals: Resp 20 06/17/17 15:42 Course - Re-evaluation Re-evalutation: 06/17/17 16:08 I was called into the room by the nurse, there is concerns that the patient was seizing, she was in fact holding her breath I called her name she looked at me and stopped holding her breath, I explained to the patient she was not seizing the nurse then notified me that the patient stated that she in fact "was seizing and that I do not know what I am talking about" 06/18/17 00:24 Patient was watched in the emergency department, she has been stable throughout , she was discharged once she was clinically stable per nursing staff After performing a Medical Screening Examination, I estimate there is LOW risk for any life threatening mental health issues. At this time the patient looks extremely well and has not attempted severe self harm. I have reevaluated this patient multiple times and no significant life threatening changes are noted. The patient and I have discussed the diagnosis and risks, and we agree with discharging home with close follow-up with the understanding that symptoms and presentations can change. We also discussed returning to the Emergency Department immediately if new or worsening symptoms occur. We have discussed the symptoms which are most concerning (hallucinations, thoughts or actions of self harm or harm to others) that necessitate immediate return. - Vital Signs Vital signs: Temp Pulse Resp BP Pulse Ox 97.4 F 112 H 16 135/90 H 94 06/17/17 20:40 06/17/17 20:40 06/17/17 20:40 06/17/17 20:40 06/17/17 20:40 - Laboratory Result Diagrams: 06/17/17 16:15 06/17/17 16:15 Laboratory results interpreted by me: 06/17/17 06/17/17 06/17/17 16:15 16:15 18:30 MCV 98 H MCH 34.3 H RDW 15.3 H Potassium 3.3 L Chloride 96 L Anion Gap 22 H Glucose 117 H Direct Bilirubin 0.8 H AST 164 H ALT 80 H Urine Protein 30 H Urine Blood SMALL H Ur Leukocyte Esterase LARGE H Salicylates < 1.0 L Acetaminophen < 10 L Serum Alcohol 374 H* - Diagnostic Test Radiology reviewed: Image reviewed - CT cervical study no contrast notes no acute abnormality, Reports reviewed Discharge - Discharge Clinical Impression: Elevated LFTs, Chronic alcohol abuse Condition: Stable Disposition: HOME, SELF-CARE Additional Instructions: Please decreased amount that you are drinking, do not stop all of a sudden, return if there are any other concerns
[2017-06-17 16:41] LABS: ABSOLUTE BASOPHILS # (AUTO) 0.1 10^3/uL (0.0-0.2); ABSOLUTE EOSINOPHILS # (AUTO) 0.2 10^3/uL (0.0-0.6); ABSOLUTE LYMPHOCYTES (AUTO) 3.1 10^3/uL (0.5-4.7); ABSOLUTE MONOCYTES (AUTO) 0.9 10^3/uL (0.1-1.4); ABSOLUTE NEUT (AUTO) 3.2 10^3/uL (1.7-8.2); BASOPHILS % (AUTO) 1.3 % (0-2); EOSINOPHILS % (AUTO) 2.2 % (0-6); HEMATOCRIT 39.8 % (36.0-47.0); LYMPHOCYTES % (AUTO) 41.7 % (13-45); MEAN CORPUSCULAR HEMOGLOBIN 34.3 pg (27.0-33.4); MEAN CORPUSCULAR HGB CONC 35.1 g/dL (32.0-36.0); MEAN CORPUSCULAR VOLUME 98 fl (80-97); MONOCYTES % (AUTO) 11.9 % (3-13); PLATELET COUNT 236 10^3/uL (150-450); RED BLOOD COUNT 4.07 10^6/uL (3.72-5.28); RED CELL DISTRIBUTION WIDTH 15.3 % (11.5-14.0); SEGMENTED NEUTROPHILS % (AUTO) 42.9 % (42-78); TOTAL CELLS COUNTED % (AUTO) 100 %; WHITE BLOOD COUNT 7.3 10^3/uL (4.0-10.5)
[2017-06-17 16:46] LABS: ALANINE AMINOTRANSFERASE 80 U/L (9-52); ALBUMIN 4.1 g/dL (3.5-5.0); ALKALINE PHOSPHATASE 119 U/L (38-126); ASPARTATE AMINO TRANSFERASE 164 U/L (14-36); BILIRUBIN,DIRECT 0.8 mg/dL (0.0-0.4); BILIRUBIN,TOTAL 0.9 mg/dL (0.2-1.3); BLOOD UREA NITROGEN 10 mg/dL (7-20); CALCIUM 8.9 mg/dL (8.4-10.2); CARBON DIOXIDE 26 mmol/L (22-30); GLUCOSE 117 mg/dL (75-110); POTASSIUM 3.3 mmol/L (3.6-5.0)
[2017-06-17 16:47] LABS: ACETAMINOPHEN < 10 ug/mL (10-30); SALICYLATE < 1.0 mg/dL (2.0-20.0)
[2017-06-17 16:51] LABS: ANION GAP 22 (5-19); CHLORIDE 96 mmol/L (98-107); SODIUM 143.8 mmol/L (137-145)
--- NOTE | 2017-06-17 17:01 | RADIOLOGY REPORT (SQ) ---
EXAM DESCRIPTION: CT CERVICAL SPINE WITHOUT COMPLETED DATE/TIME: 06/17/2017 4:49 pm REASON FOR STUDY: alcoholic, neck pain COMPARISON: None. TECHNIQUE: Axial images acquired through the cervical spine without intravenous contrast. Images re viewed with lung, soft tissue and bone windows. Reconstructed coronal and sagittal MPR images review ed. Images stored on PACS. All CT scanners at this facility use dose modulation, iterative reconstruction, and/or weight based d osing when appropriate to reduce radiation dose to as low as reasonably achievable (ALARA). [facility]: Dose Right [facility]: CareDose [facility]: Dose Right [facility]: Teradose 4D [facility]: [employer] RADIATION DOSE: CT Rad equipment meets quality standard of care and radiation dose reduction techniq ues were employed. CTDIvol: 27.8 mGy. DLP: 503 mGy-cm. mGy. LIMITATIONS: None. FINDINGS: ALIGNMENT: Anatomic. MINERALIZATION: Normal. VERTEBRAL BODIES: No fractures or dislocation. DISCS: There is decrease in the C5-C6 disc space heights with associated osteophytic lipping. FACETS, LATERAL MASSES, POSTERIOR ELEMENTS: No fractures. No dislocation. No acute findings. HARDWARE: None in the spine. VISUALIZED RIBS: No fractures. LUNG APICES AND SOFT TISSUES: No significant or acute findings. OTHER: No other significant finding. IMPRESSION: Degenerative changes without evidence for fracture. TECHNICAL DOCUMENTATION: JOB ID: [id number] Quality ID # [id number]: Final reports with documentation of one or more dose reduction techniques (e.g., Au tomated exposure control, adjustment of the mA and/or kV according to patient size, use of iterative reconstruction technique) 2010 [employer]- All Rights Reserved Reading location - IP/workstation name: [email or web address]
[2017-06-17 17:27] LABS: ALCOHOL 374 mg/dL (NONE DETECTED)
[2017-06-17] MEDS ORDERED: ACETAMINOPHEN 325 MG TABLET PO ONE (19:09)
[2017-06-17 19:13] LABS: APPEARANCE,URINE SLIGHTLY-CLOUDY; BILIRUBIN,URINE NEGATIVE (NEGATIVE); COLOR,URINE YELLOW; GLUCOSE, URINE NEGATIVE (NEGATIVE); KETONES,URINE NEGATIVE (NEGATIVE); LEUKOCYTE ESTERASE,URINE LARGE (NEGATIVE); NITRITE,URINE NEGATIVE (NEGATIVE); PROTEIN,URINE 30 mg/dL (NEGATIVE); URINE SPECIFIC GRAVITY 1.004; UROBILINOGEN,URINE NEGATIVE mg/dL (<2.0)
[2017-06-17] MEDS ORDERED: ACETAMINOPHEN 325 MG TABLET ONE (19:17)
[2017-06-17 19:27] LABS: URINE AMPHETAMINES SCREEN NEGATIVE; URINE BARBITURATES SCREEN NEGATIVE; URINE BENZODIAZEPINES SCREEN UNCONFIRMED POSITIVE; URINE COCAINE SCREEN NEGATIVE; URINE MARIJUANA (THC) SCREEN NEGATIVE; URINE METHADONE SCREEN NEGATIVE; URINE PHENCYCLIDINE SCREEN NEGATIVE
[2017-06-17 21:11] VITALS: BP 135/90
--- NOTE | 2017-06-17 22:36 | EKG REPORT ---
SEVERITY:- ABNORMAL ECG - SINUS RHYTHM FIRST DEGREE AV BLOCK BORDERLINE INFERIOR Q WAVES PROLONGED QT INTERVAL NON SPECIFIC IVCD : Confirmed by: Hudson Alegria 17-Jun-2017 22:35:54
== END 2017-06-17 20:55 | disposition home or self-care (01) ==
LOC: ER 15:26
DX: F10.10 Alcohol abuse, uncomplicated (principal); R79.89 Other specified abnormal findings of blood chemistry; M43.6 Torticollis; R20.0 Anesthesia of skin; M54.2 Cervicalgia; F17.210 Nicotine dependence, cigarettes, uncomplicated; I10 Essential (primary) hypertension; J44.9 Chronic obstructive pulmonary disease, unspecified
CPT/HCPCS: 93005; 99284; 36415; 80307 ×4; 85025; 80053; 81001; 72125; 93010; A9270

== ENCOUNTER 2018-06-02 15:46 | Inpatient (IN) | payer MEDICARE, MEDICAID ==
[2018-06-02] MEDS ORDERED: NORMAL SALINE 1000 ML 1,000 ML IV ONE (16:16)
[2018-06-02] MEDS ORDERED: LORAZEPAM INJ 2 MG/1 ML VIAL IV ONE (16:16)
[2018-06-02] MEDS ORDERED: ONDANSETRON HCL INJ/PF 4 MG/2 ML SDV IV ONE (16:17)
[2018-06-02 16:45] LABS: ABSOLUTE BASOPHILS # (AUTO) 0.1 10^3/uL (0.0-0.2); ABSOLUTE MONOCYTES (AUTO) 0.8 10^3/uL (0.1-1.4); ABSOLUTE NEUT (AUTO) 9.3 10^3/uL (1.7-8.2); BASOPHILS % (AUTO) 0.7 % (0-2); HEMATOCRIT 42.7 % (36.0-47.0); HEMOGLOBIN 15.1 g/dL (12.0-15.5); LYMPHOCYTES % (AUTO) 8.9 % (13-45); MEAN CORPUSCULAR HEMOGLOBIN 32.2 pg (27.0-33.4); MEAN CORPUSCULAR HGB CONC 35.3 g/dL (32.0-36.0); MEAN CORPUSCULAR VOLUME 91 fl (80-97); MONOCYTES % (AUTO) 7.1 % (3-13); PLATELET COUNT 212 10^3/uL (150-450); RED BLOOD COUNT 4.68 10^6/uL (3.72-5.28); RED CELL DISTRIBUTION WIDTH 15.8 % (11.5-14.0); SEGMENTED NEUTROPHILS % (AUTO) 83.3 % (42-78); TOTAL CELLS COUNTED % (AUTO) 100 %; WHITE BLOOD COUNT 11.2 10^3/uL (4.0-10.5)
[2018-06-02] MEDS ORDERED: METOPROLOL TARTRATE PF/INJ 5 MG/5 ML SDV IV ONE (17:05)
[2018-06-02] MEDS ORDERED: THIAMINE HCL 100 MG in NORMAL SALINE 50 ML IV ONE (17:06)
[2018-06-02 17:09] LABS: ALANINE AMINOTRANSFERASE 57 U/L (9-52); ALKALINE PHOSPHATASE 185 U/L (38-126); ANION GAP 17 (5-19); ASPARTATE AMINO TRANSFERASE 87 U/L (14-36); BILIRUBIN,DIRECT 0.7 mg/dL (0.0-0.4); BILIRUBIN,TOTAL 1.2 mg/dL (0.2-1.3); BLOOD UREA NITROGEN 7 mg/dL (7-20); CALCIUM 8.5 mg/dL (8.4-10.2); CARBON DIOXIDE 26 mmol/L (22-30); CHLORIDE 95 mmol/L (98-107); CREATINE KINASE 410 U/L (30-135); GLUCOSE 148 mg/dL (75-110); SODIUM 138.4 mmol/L (137-145); TOTAL PROTEIN 8.4 g/dL (6.3-8.2)
[2018-06-02 17:17] LABS: POTASSIUM 2.6 mmol/L (3.6-5.0)
[2018-06-02] MEDS ORDERED: MAGNESIUM SULFATE INJ 8 MEQ/2 ML IV ONE (17:19)
[2018-06-02] MEDS ORDERED: POTASSI CL 20 MEQ/50 ML RIDER 20 MEQ/50 ML RTUPB IV ONE (17:20)
--- NOTE | 2018-06-02 17:27 | ER Document Report ---
Entered by RAMON TREJO SCRIBE 06/02/18 [id number] Acting as scribe for:GRACE SOL MD ED Substance Abuse / Acc. OD - General Stated Complaint: WEAKNESS Time Seen by Provider: 06/02/18 16:06 Primary Care Provider: JULIET,TRACY [Primary Care Provider] - Follow up as needed Mode of Arrival: Ambulatory Information source: Patient Notes: 47-year-old female who presents to the emergency department today with complaints of alcohol withdrawal. Patient states her last drink was Friday which was x4 days ago. Patient states she stopped drinking because she ran out of alcohol. Patient was unable to answer anymore questions as she began dry heaving constantly. TRAVEL OUTSIDE OF THE [place] 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 leg. Pt. has a steel debi. Past Surgical History: Reports: Hx Appendectomy, Hx Cholecystectomy, Hx Orthopedic Surgery - right knee, Hx Tonsillectomy, Hx Tubal Ligation - Immunizations Hx Diphtheria, Pertussis, Tetanus Vaccination: No Hx Pneumococcal Vaccination: 05/05/11 Review of Systems - Review of Systems -: Yes ROS unobtainable due to patient's medical condition - dry heaves, unable to answer questions Physical Exam - Notes Notes: Physical Exam: General: Alert, shaking/tremulous, when interacting with the patient she begins to grab a emesis bag and continuously dry heaves without vomiting. HEENT: Normocephalic. Atraumatic. PERRL. Extraocular movements intact. Oropharynx clear. Neck: Supple. Non-tender. Respiratory: Hyperventilating. No respiratory distress. Clear and equal breath sounds bilaterally. Cardiovascular: Tachycardic, regular rhythm. Abdominal: Normal Inspection. Non-tender. No distension. Normal Bowel Sounds. Back: Non-tender. No deformity or step off. Extremities: Moves all four extremities. Upper extremities: Normal inspection. Normal ROM. Lower extremities: Normal inspection. No edema. Normal ROM. Neurological: Normal cognition. AAOx4. Normal speech. Skin: Warm. Dry. Normal color. Course - Laboratory Result Diagrams: 06/02/18 16:15 06/02/18 16:15 Laboratory results interpreted by me: 06/02/18 06/02/18 16:15 16:15 WBC 11.2 H RDW 15.8 H Seg Neutrophils % 83.3 H Lymphocytes % 8.9 L Absolute Neutrophils 9.3 H Potassium 2.6 L* Chloride 95 L Glucose 148 H Magnesium 0.3 L* Direct Bilirubin 0.7 H AST 87 H ALT 57 H Alkaline Phosphatase 185 H Creatine Kinase 410 H Total Protein 8.4 H - EKG Interpretation by Me EKG shows normal: Sinus rhythm, [place], QRS Complexes. abnormal: Intervals - Prolonged QT interval, ST-T Waves - Borderline lateral ST depression Rate: Tachycardia - 135 - Consults Dr. Skelton Time consulted: 17:25 Consulted provider: will come to ER Critical Care Note - Critical Care Note Total time excluding time spent on procedures (mins): 40 Discharge - Discharge Clinical Impression: Hypokalemia, Hypomagnesemia, Tachycardia Alcohol withdrawal Qualifiers: Complication of substance-induced condition: with unspecified complication Qualified Code(s): F10.239 - Alcohol dependence with withdrawal, unspecified Vomiting Qualifiers: Vomiting type: unspecified Vomiting Intractability: non-intractable Nausea presence: with nausea Qualified Code(s): R11.2 - Nausea with vomiting, unspecified Hypertension Qualifiers: Hypertension type: essential hypertension Qualified Code(s): I10 - Essential (primary) hypertension Condition: Fair Disposition: ADMITTED INPATIENT Admitting Provider: Nafisa (Hospitalist) Unit Admitted: Telemetry Referrals: LOCAL,TRACY [Primary Care Provider] - Follow up as needed Scribe Attestation: 06/02/18 17:18 I personally performed the services described in the documentation, reviewed and edited the documentation which was dictated to the scribe in my presence, and it accurately records my words and actions. I personally performed the services described in the documentation, reviewed and edited the documentation which was dictated to the scribe in my presence, and it accurately records my words and actions.
[2018-06-02] MEDS ORDERED: THIAMINE HCL INJ 200 MG/2 ML VIAL ONE (17:32)
[2018-06-02 17:55] LABS: ALCOHOL < 10 mg/dL (NONE DETECTED)
[2018-06-02] MEDS ORDERED: ONDANSETRON HCL INJ/PF 4 MG/2 ML SDV IV PRN (18:01)
[2018-06-02] MEDS ORDERED: MAG HYDROX/AL HYDROX/SIMETH SUSP 30 ML UDCUP PO PRN (18:01)
[2018-06-02] MEDS ORDERED: PROMETHAZINE HCL INJ 25 MG/1 ML VIAL IV PRN (18:01)
[2018-06-02] MEDS ORDERED: ALBUTEROL SULFATE 0.083% NEB 2.5 MG/3 ML AMPUL NEB PRN (18:01)
[2018-06-02] MEDS ORDERED: MAGNESIUM HYDROXIDE SUSP 30 ML UDCUP PO PRN (18:01)
[2018-06-02] MEDS ORDERED: ACETAMINOPHEN 325 MG TABLET PO PRN (18:01)
[2018-06-02] MEDS ORDERED: ACETAMINOPHEN 650 MG SUPP.RECT PR PRN (18:01)
[2018-06-02] MEDS ORDERED: HALOPERIDOL 5 MG TABLET PO PRN (18:12)
--- NOTE | 2018-06-02 18:19 | RADIOLOGY REPORT (SQ) ---
EXAM DESCRIPTION: CHEST SINGLE VIEW COMPLETED DATE/TIME: 06/02/2018 5:47 pm REASON FOR STUDY: COPD, acute ETOH withdrawal COMPARISON: 06/06/2015 EXAM PARAMETERS: NUMBER OF VIEWS: One view. TECHNIQUE: Single frontal radiographic view of the chest acquired. RADIATION DOSE: NA LIMITATIONS: None. FINDINGS: LUNGS AND PLEURA: No opacities, masses or pneumothorax. No pleural effusion. MEDIASTINUM AND HILAR STRUCTURES: No masses. Contour normal. HEART AND VASCULAR STRUCTURES: Heart size is borderline. There is no pulmonary edema. BONES: No acute findings. HARDWARE: None in the chest. OTHER: No other significant finding. IMPRESSION: Borderline cardiomegaly without pulmonary edema. TECHNICAL DOCUMENTATION: JOB ID: [id number] [employer]- All Rights Reserved Reading location - IP/workstation name: [email or web address]
[2018-06-02] MEDS ORDERED: METOPROLOL TARTRATE PF/INJ 5 MG/5 ML SDV IV PRN (18:24)
[2018-06-02] MEDS ORDERED: HYDRALAZINE HCL INJ/PF 20 MG/1 ML SDV IV PRN (18:26)
--- NOTE | 2018-06-02 18:58 | PDOC H&P ---
History of Present Illness Admission Date/PCP: 06/02/18 17:33 NO LOCALMD Patient complains of: Feeling sick History of Present Illness: FABIANA HEAD is a 47 year old female with multiple previous admissions for alcohol withdrawal. She has a history of depression as well as hypertension, seizure disorder, hypothyroidism and hypertension. In addition she has hy pomagnesemia and has had hypokalemia on her last admission. She states that she has not had any alcohol for 4 days (serum alcohol level is 0) and is not taking her medications for a week. These medications include Latuda, Zoloft, magnesium oxide, folic acid, clonidine hydrochlorothiazide and Xanax. She also takes ibuprofen 600 mg 3 times a day with food. During her initial evaluation she was found to have magnesium level of 0.3 and potassium level of 2.6. She was also tachycardic and hypertensive. She was referred to the hospitalist service for admission. 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, Hypertension Denies: Atrial Fibrillation, Congestive Heart Failure, Hyperlipidema, Heart Murmur Pulmonary Medical History: Reports: Asthma, Chronic Obstructive Pulmonary Disease (COPD) Denies: Bronchitis, Pneumonia, Respiratory Failure, Sleep Apnea, Tuberculosis EENT Medical History: Denies: Eyes, Ears, Nose, Throat Neurological Medical History: Reports: Seizures Endocrine Medical History: Reports: Hypothyroidism Renal/ Medical History: Denies: Chronic Kidney Disease, End Stage Renal Disease Malignancy Medical History: Reports: None GI Medical History: Reports: Gastroesophageal Reflux Disease Denies: Hiatal Hernia Musculoskeltal Medical History: Denies: Arthritis Skin Medical History: Reports: None Psychiatric Medical History: Reports: Depression Denies: Bipolar Disorder Traumatic Medical History: Reports: None Hematology: Denies: Anemia, Hemophilia, Heparin Induced Thrombocytopenia Infectious Medical History: Reports: None Past Surgical History Past Surgical History: Reports: Appendectomy, Cholecystectomy, Orthopedic Surgery - right knee, Tonsillectomy, Tubal Ligation Denies: Amputation, Section, Hysterectomy, Mastectomy Social History Information Source: Patient, [facility] Records Lives with: Family Smoking Status: Current Every Day Smoker - Patient denied tobacco use to this provider. Every day smoker is consistent with all of her records. Frequency of Alcohol Use: Heavy Amount of Alcoholic Beverages Per Day: one fifth of whiskey daily Hx Recreational Drug Use: No Drugs: None Hx Prescription Drug Abuse: No - Advance Directive Resuscitation Status: Full Code Surrogate healthcare decision maker:: No documentation in place. Family History Family History: Malignancy Parental Family History Reviewed: Yes Children Family History Reviewed: Yes Sibling(s) Family History Reviewed.: Yes Medication/Allergy Allergies/Adverse Reactions: No Known Allergies Allergy (Verified 06/08/14 00:01) Review of Systems Constitutional: PRESENT: anorexia, fatigue, weakness Eyes: ABSENT: visual disturbances Ears: ABSENT: hearing changes Nose, Mouth, and Throat: PRESENT: other - Dry mouth. ABSENT: mouth pain Cardiovascular: PRESENT: other - Tachycardia. ABSENT: chest pain, edema, orthropnea Respiratory: ABSENT: cough, hemoptysis, sputum Gastrointestinal: PRESENT: diarrhea, heartburn, nausea. ABSENT: abdominal pain, constipation, vomiting Genitourinary: ABSENT: difficulty urinating, dysuria, hematuria Musculoskeletal: ABSENT: joint swelling Integumentary: ABSENT: diaphoresis, rash Neurological: PRESENT: tremor(s) Psychiatric: PRESENT: anxiety. ABSENT: hallucinations Endocrine: ABSENT: cold intolerance, heat intolerance Hematologic/Lymphatic: ABSENT: easy bleeding, easy bruising Allergic/Immunologic: ABSENT: seasonal rhinorrhea Physical Exam Vital Signs: Intake & Output 06/01/18 06/02/18 06/03/18 06:59 06:59 06:59 Intake Total 1000 Balance 1000 General appearance: PRESENT: cooperative, mild distress - Mild to moderate distress. Tremulous at rest., obese, well-developed Head exam: PRESENT: atraumatic, normocephalic Eye exam: PRESENT: conjunctiva pink. ABSENT: scleral icterus Ear exam: PRESENT: normal external ear exam Mouth exam: PRESENT: dry mucosa, neck supple Respiratory exam: PRESENT: clear to auscultation thomas, symmetrical, unlabored. ABSENT: accessory muscle use, rales, rhonchi, wheezes Cardiovascular exam: PRESENT: +S1, +S2, tachycardia GI/Abdominal exam: PRESENT: normal bowel sounds, soft. ABSENT: distended, tenderness Rectal exam: PRESENT: deferred Gentrourinary exam: ABSENT: indwelling catheter Extremities exam: ABSENT: pedal edema Musculoskeletal exam: PRESENT: normal inspection Neurological exam: PRESENT: alert, awake, oriented to person, oriented to place, oriented to situation Psychiatric exam: PRESENT: anxious, flat affect. ABSENT: agitated, manic Focused psych exam: ABSENT: delusional, restlessness Skin exam: PRESENT: dry, warm. ABSENT: rash Results Laboratory Results: 06/02/18 16:15 06/02/18 16:15 06/02/18 06/02/18 16:15 16:15 WBC 11.2 H RBC 4.68 Hgb 15.1 Hct 42.7 MCV 91 MCH 32.2 MCHC 35.3 RDW 15.8 H Plt Count 212 Seg Neutrophils % 83.3 H Lymphocytes % 8.9 L Monocytes % 7.1 Eosinophils % 0.0 Basophils % 0.7 Absolute Neutrophils 9.3 H Absolute Lymphocytes 1.0 Absolute Monocytes 0.8 Absolute Eosinophils 0.0 Absolute Basophils 0.1 Sodium 138.4 Potassium 2.6 L* Chloride 95 L Carbon Dioxide 26 Anion Gap 17 BUN 7 Creatinine 0.82 Est GFR ( Amer) > 60 Est GFR (Non-Af Amer) > 60 Glucose 148 H Calcium 8.5 Magnesium 0.3 L* Total Bilirubin 1.2 AST 87 H ALT 57 H Alkaline Phosphatase 185 H Total Protein 8.4 H Albumin 4.0 06/02/18 06/02/18 16:15 16:15 Creatine Kinase 410 H Troponin I 0.012 Impressions: Chest X-Ray 06/02/18 17:29 IMPRESSION: Borderline cardiomegaly without pulmonary edema. Assessment and Plan - Diagnosis (1) Alcohol withdrawal Qualifiers: Complication of substance-induced condition: with unspecified complication Qualified Code(s): F10.239 - Alcohol dependence with withdrawal, unspecified Is this a current diagnosis for this admission?: Yes Plan: Patient has not had alcohol in 4 days. She states that she had a seizure several days ago. She has a history of withdrawal seizures. She is quite tremulous during this encounter. Freeman use of lorazepam as well as halo peridol. Thiamine and folic acid IV as well as IV fluids. (2) Hypertension Qualifiers: Hypertension type: essential hypertension Qualified Code(s): I10 - Essential (primary) hypertension Is this a current diagnosis for this admission?: Yes Plan: Patient has history of myocardial infarction however this was a induced with ephedrine. She is regularly supposed to be on clonidine 0.1 mg twice daily and hydrochlorothiazide 25 mg daily. I am going to add lisinopril 10 mg daily and metoprolol 12.5 mg twice daily. She has hydralazine and metoprolol available by intravenous if needed. (3) Hypokalemia Is this a current diagnosis for this admission?: Yes Plan: The patient is receiving intravenous potassium ordered by the emergency department physician. I have ordered serial basic metabolic panels and magnesium levels. Supplement potassium based on serum potassium levels. (4) Hypomagnesemia Is this a current diagnosis for this admission?: Yes Plan: Serum magnesium is only 0.3 mg. The patient is supposed to be on magnesium o xide 400 mg twice daily. She has not taken medications in a week. I will restart the oral magnesium oxide and the patient will receive intravenous magnesium sulfate as well. Continue to monitor serum magnesium level and replete as indicated. (5) Tachycardia Is this a current diagnosis for this admission?: Yes Plan: Tachycardia at this time. Intravenous Lopressor will be available if needed. I have also started metoprolol 12.5 mg twice daily. This will also help with her hypertension. (6) Depression Qualifiers: Depression Type: unspecified Qualified Code(s): F32.9 - Major depressive disorder, single episode, unspecified Is this a current diagnosis for this admission?: Yes Plan: The patient is unable to supply information regarding greater detail of her history of depression. She is on Latuda and sertraline. She denies bipolar disorder. Psychiatry has seen her in the past I have ordered a psych consult. I am not resuming her Latuda as she does have a prolonged QT interval. I did start her sertraline at 100 mg daily instead of her typical 150 mg. Haldol is available as needed. (7) Diarrhea Qualifiers: Diarrhea type: unspecified type Qualified Code(s): R19.7 - Diarrhea, unspecified Is this a current diagnosis for this admission?: Yes Plan: Possibly related to alcohol withdrawal. Will monitor her volume status. The patient has not been on antibiotics lately and so Clostridium difficile is very unlikely. (8) Withdrawal seizures Qualifiers: Complication of substance-induced condition: uncomplicated Qualified Code(s): F19.230 - Other psychoactive substance dependence with withdrawal, uncomplicated Is this a current diagnosis for this admission?: Yes Plan: The patient states she had a seizure several days ago she will have considerable amount of intravenous lorazepam available as needed. No antiepileptic medic ations at this time. (9) Obesity Qualifiers: Obesity type: unspecified obesity type Obesity classification: unspecified obesity classification Is this a current diagnosis for this admission?: Yes Plan: Height and weight have not been charted as yet. BMI not able to be calculated at this time. Will classify obesity once that information is available. The patient is on Zoloft and Latuda both of these can contribute to weight gain. (10) Prolonged Q-T interval on ECG Is this a current diagnosis for this admission?: Yes Plan: Most likely from her Latuda. I have ordered serial EKGs. She has been off of medication for a week according to her. We will monitor closely. - Time Time Spent with patient: 65 minutes Time Spent with patient: 35 or more minutes Smoking Cessation Education: 3 to 10 minutes Medications reviewed and adjusted accordingly: Yes - Inpatient Certification Based on my medical assessment, after consideration of the patient's comorbid ities, presenting symptoms, or acuity I expect that the services needed warrant INPATIENT care.: Yes I certify that my determination is in accordance with my understanding of Medicare's requirements for reasonable and necessary INPATIENT services [42 CFR 412.3e].: Yes Medical Necessity: Need Close Monitoring Due to Risk of Patient Decompensation, Need For IV Fluids, Need For Continuous Telemetry Monitoring, Need for Pain Control, Risk of Complication if Not Cared For in Hospital 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
--- NOTE | 2018-06-02 19:49 | EKG REPORT ---
SEVERITY:- ABNORMAL ECG - SINUS TACHYCARDIA BORDERLINE ST DEPRESSION, LATERAL LEADS PROLONGED QT INTERVAL : Confirmed by: Tamara Boyer MD 02-Jun-2018 19:49:21
[2018-06-02 20:17] LABS: ANION GAP 7 (5-19); BLOOD UREA NITROGEN 8 mg/dL (7-20); CALCIUM 7.7 mg/dL (8.4-10.2); CARBON DIOXIDE 31 mmol/L (22-30); CHLORIDE 97 mmol/L (98-107); GLUCOSE 133 mg/dL (75-110)
[2018-06-02] MEDS: ENOXAPARIN SODIUM INJ 40 MG/0.4 ML DISP.SYRIN SUBCUT SCH (20:29)
[2018-06-02 20:39] LABS: APPEARANCE,URINE SLIGHTLY-CLOUDY; BILIRUBIN,URINE NEGATIVE (NEGATIVE); COLOR,URINE YELLOW; GLUCOSE, URINE NEGATIVE (NEGATIVE); KETONES,URINE NEGATIVE (NEGATIVE); LEUKOCYTE ESTERASE,URINE TRACE (NEGATIVE); NITRITE,URINE POSITIVE (NEGATIVE); PROTEIN,URINE 100 mg/dL (NEGATIVE); UROBILINOGEN,URINE NEGATIVE mg/dL (<2.0)
[2018-06-02 20:55] LABS: URINE AMPHETAMINES SCREEN NEGATIVE; URINE BARBITURATES SCREEN NEGATIVE; URINE BENZODIAZEPINES SCREEN UNCONFIRMED POSITIVE; URINE COCAINE SCREEN NEGATIVE; URINE MARIJUANA (THC) SCREEN NEGATIVE; URINE METHADONE SCREEN NEGATIVE; URINE PHENCYCLIDINE SCREEN NEGATIVE
[2018-06-02] MEDS: METOPROLOL TARTRATE 25 MG TABLET PO SCH (23:27)
[2018-06-02] MEDS: CLONIDINE HCL 0.1 MG TABLET PO SCH (23:27)
[2018-06-03 04:59] LABS: ABSOLUTE BASOPHILS # (AUTO) 0.1 10^3/uL (0.0-0.2); ABSOLUTE EOSINOPHILS # (AUTO) 0.1 10^3/uL (0.0-0.6); ABSOLUTE LYMPHOCYTES (AUTO) 1.9 10^3/uL (0.5-4.7); ABSOLUTE MONOCYTES (AUTO) 0.8 10^3/uL (0.1-1.4); ABSOLUTE NEUT (AUTO) 5.3 10^3/uL (1.7-8.2); BASOPHILS % (AUTO) 0.6 % (0-2); EOSINOPHILS % (AUTO) 0.7 % (0-6); HEMATOCRIT 38.8 % (36.0-47.0); HEMOGLOBIN 13.6 g/dL (12.0-15.5); LYMPHOCYTES % (AUTO) 23.2 % (13-45); MEAN CORPUSCULAR HEMOGLOBIN 32.2 pg (27.0-33.4); MEAN CORPUSCULAR HGB CONC 35.2 g/dL (32.0-36.0); MEAN CORPUSCULAR VOLUME 91 fl (80-97); MONOCYTES % (AUTO) 9.7 % (3-13); PLATELET COUNT 158 10^3/uL (150-450); RED BLOOD COUNT 4.24 10^6/uL (3.72-5.28); RED CELL DISTRIBUTION WIDTH 15.7 % (11.5-14.0); SEGMENTED NEUTROPHILS % (AUTO) 65.8 % (42-78); TOTAL CELLS COUNTED % (AUTO) 100 %
[2018-06-03 05:28] LABS: ALANINE AMINOTRANSFERASE 41 U/L (9-52); ALBUMIN 3.4 g/dL (3.5-5.0); ALKALINE PHOSPHATASE 153 U/L (38-126); ANION GAP 9 (5-19); ASPARTATE AMINO TRANSFERASE 65 U/L (14-36); BILIRUBIN,DIRECT 0.4 mg/dL (0.0-0.4); BILIRUBIN,TOTAL 1.1 mg/dL (0.2-1.3); BLOOD UREA NITROGEN 9 mg/dL (7-20); CALCIUM 7.9 mg/dL (8.4-10.2); CARBON DIOXIDE 32 mmol/L (22-30); CHLORIDE 95 mmol/L (98-107); GLUCOSE 82 mg/dL (75-110); LIPASE 107.8 U/L (23-300); SODIUM 135.9 mmol/L (137-145); TOTAL PROTEIN 6.9 g/dL (6.3-8.2)
[2018-06-03] MEDS: PANTOPRAZOLE SODIUM 40 MG TABLET.DR PO SCH (05:34)
[2018-06-03] MEDS: LEVOTHYROXINE SODIUM 0.088 MG TABLET PO SCH (05:34)
[2018-06-03 05:44] LABS: POTASSIUM 2.7 mmol/L (3.6-5.0)
[2018-06-03] MEDS ORDERED: ALBUTEROL SULFATE HFA (90 MCG/PUFF) 8 GM MDI (1 MDI/ER DISP) IH PRN (07:49)
[2018-06-03] MEDS ORDERED: ALPRAZOLAM 0.5 MG TABLET PO PRN (07:49)
[2018-06-03] MEDS ORDERED: LEVOTHYROXINE SODIUM 0.088 MG TABLET PO SCH (08:00)
[2018-06-03] MEDS ORDERED: (PENDING PHARMACY ID) (Lurasidone Hcl [Latuda] 20 MG) PO SCH (08:00)
[2018-06-03] MEDS ORDERED: HYDROCHLOROTHIAZIDE 25 MG TABLET PO SCH (08:00)
[2018-06-03] MEDS ORDERED: CLONIDINE HCL 0.1 MG TABLET PO SCH (08:00)
--- NOTE | 2018-06-03 08:32 | EKG REPORT ---
SEVERITY:- ABNORMAL ECG - SINUS RHYTHM FIRST DEGREE AV BLOCK PROLONGED QT INTERVAL : Confirmed by: Tamara Boyer MD 03-Jun-2018 08:31:17
[2018-06-03] MEDS: FOLIC ACID 1 MG TABLET PO SCH ×2 (09:14)
[2018-06-03] MEDS: METOPROLOL TARTRATE 25 MG TABLET PO SCH ×2 (09:15→22:40)
[2018-06-03] MEDS: MAGNESIUM OXIDE 400 MG TABLET PO SCH ×2 (09:15→17:33)
[2018-06-03] MEDS: SERTRALINE HCL 50 MG TABLET PO SCH (09:15)
[2018-06-03] MEDS: MAGNESIUM SULFATE/D5W 1 GM/100 ML RTUPB IV SCH ×3 (09:16→12:23)
[2018-06-03] MEDS: CLONIDINE HCL 0.1 MG TABLET PO SCH ×2 (09:16→22:40)
[2018-06-03] MEDS: HYDROCHLOROTHIAZIDE 25 MG TABLET PO SCH (09:25)
[2018-06-03] MEDS: ENOXAPARIN SODIUM INJ 40 MG/0.4 ML DISP.SYRIN SUBCUT SCH (09:26)
[2018-06-03] MEDS: LISINOPRIL 10 MG TABLET PO SCH (09:26)
[2018-06-03] MEDS ORDERED: ALBUTEROL SULFATE HFA (90 MCG/PUFF) 200 PUFF/8.5 GM MDI IH PRN (09:26)
[2018-06-03] MEDS ORDERED: MAGNESIUM OXIDE 400 MG TABLET PO SCH (10:00)
[2018-06-03 12:30] LABS: ANION GAP 7 (5-19); BLOOD UREA NITROGEN 10 mg/dL (7-20); CALCIUM 7.7 mg/dL (8.4-10.2); CARBON DIOXIDE 32 mmol/L (22-30); CHLORIDE 96 mmol/L (98-107); GLUCOSE 107 mg/dL (75-110); SODIUM 134.7 mmol/L (137-145)
[2018-06-03 12:37] LABS: POTASSIUM 2.8 mmol/L (3.6-5.0)
[2018-06-03] MEDS: POTASSIUM CHLORIDE 20 MEQ/50 ML RTU IV SCH ×3 (13:35→17:34)
--- NOTE | 2018-06-03 14:19 | PSYCHOLOGICAL NOTE ---
Psych Note - Psych Note Date seen by psych provider: 06/03/18 Time seen by psych provider: 13:00 Psych Note: Medication recommended per [facility]'s contracted psychiatrist Dr. 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
[2018-06-03 21:21] LABS: ANION GAP 7 (5-19); BLOOD UREA NITROGEN 10 mg/dL (7-20); CALCIUM 7.6 mg/dL (8.4-10.2); CARBON DIOXIDE 27 mmol/L (22-30); CHLORIDE 100 mmol/L (98-107); GLUCOSE 89 mg/dL (75-110); POTASSIUM 3.3 mmol/L (3.6-5.0); SODIUM 134.4 mmol/L (137-145)
[2018-06-03] MEDS: NORMAL SALINE 1000 ML 1,000 ML IV PRN (22:40)
[2018-06-03] MEDS: THIAMINE HCL 100 MG, FOLIC ACID 1 MG in NORMAL SALINE 250 ML IV SCH (22:40)
[2018-06-03 23:48] LABS: ANION GAP 8 (5-19); BLOOD UREA NITROGEN 9 mg/dL (7-20); CALCIUM 7.3 mg/dL (8.4-10.2); CARBON DIOXIDE 29 mmol/L (22-30); CHLORIDE 99 mmol/L (98-107); GLUCOSE 86 mg/dL (75-110); POTASSIUM 3.1 mmol/L (3.6-5.0)
[2018-06-04 05:24] LABS: ABSOLUTE EOSINOPHILS # (AUTO) 0.2 10^3/uL (0.0-0.6); ABSOLUTE LYMPHOCYTES (AUTO) 1.7 10^3/uL (0.5-4.7); ABSOLUTE MONOCYTES (AUTO) 0.5 10^3/uL (0.1-1.4); ABSOLUTE NEUT (AUTO) 3.6 10^3/uL (1.7-8.2); BASOPHILS % (AUTO) 0.8 % (0-2); EOSINOPHILS % (AUTO) 3.3 % (0-6); HEMATOCRIT 34.8 % (36.0-47.0); HEMOGLOBIN 12.1 g/dL (12.0-15.5); LYMPHOCYTES % (AUTO) 28.4 % (13-45); MEAN CORPUSCULAR HEMOGLOBIN 32.2 pg (27.0-33.4); MEAN CORPUSCULAR HGB CONC 34.6 g/dL (32.0-36.0); MEAN CORPUSCULAR VOLUME 93 fl (80-97); MONOCYTES % (AUTO) 8.4 % (3-13); PLATELET COUNT 116 10^3/uL (150-450); RED BLOOD COUNT 3.75 10^6/uL (3.72-5.28); RED CELL DISTRIBUTION WIDTH 15.5 % (11.5-14.0); SEGMENTED NEUTROPHILS % (AUTO) 59.1 % (42-78); TOTAL CELLS COUNTED % (AUTO) 100 %
[2018-06-04] MEDS: LORAZEPAM INJ 2 MG/1 ML VIAL IV PRN ×2 (05:26→21:35)
[2018-06-04] MEDS: LEVOTHYROXINE SODIUM 0.088 MG TABLET PO SCH (05:26)
[2018-06-04] MEDS: PANTOPRAZOLE SODIUM 40 MG TABLET.DR PO SCH (05:26)
[2018-06-04 06:04] LABS: ALANINE AMINOTRANSFERASE 34 U/L (9-52); ALBUMIN 2.9 g/dL (3.5-5.0); ALKALINE PHOSPHATASE 105 U/L (38-126); ANION GAP 9 (5-19); ASPARTATE AMINO TRANSFERASE 51 U/L (14-36); BILIRUBIN,DIRECT 0.4 mg/dL (0.0-0.4); BILIRUBIN,TOTAL 0.9 mg/dL (0.2-1.3); BLOOD UREA NITROGEN 10 mg/dL (7-20); CALCIUM 7.2 mg/dL (8.4-10.2); CARBON DIOXIDE 27 mmol/L (22-30); CHLORIDE 101 mmol/L (98-107); GLUCOSE 78 mg/dL (75-110); POTASSIUM 3.1 mmol/L (3.6-5.0); SODIUM 137.1 mmol/L (137-145); TOTAL PROTEIN 6.1 g/dL (6.3-8.2)
[2018-06-04] MEDS: MAGNESIUM SULFATE 1 GM/D5W 100 ML IV SCH ×2 (08:18→09:24)
[2018-06-04] MEDS: POTASSIUM CHLORIDE 20 MEQ/50 ML RTU IV SCH ×2 (08:19→09:51)
[2018-06-04] MEDS: HYDROCHLOROTHIAZIDE 25 MG TABLET PO SCH (09:22)
[2018-06-04] MEDS: ENOXAPARIN SODIUM INJ 40 MG/0.4 ML DISP.SYRIN SUBCUT SCH (09:23)
[2018-06-04] MEDS: FOLIC ACID 1 MG TABLET PO SCH (09:25)
[2018-06-04] MEDS: CLONIDINE HCL 0.1 MG TABLET PO SCH ×2 (09:25→21:35)
[2018-06-04] MEDS: METOPROLOL TARTRATE 25 MG TABLET PO SCH ×2 (09:26→21:35)
[2018-06-04] MEDS: LISINOPRIL 10 MG TABLET PO SCH (09:27)
[2018-06-04] MEDS: SERTRALINE HCL 50 MG TABLET PO SCH (09:27)
[2018-06-04] MEDS: MAGNESIUM OXIDE 400 MG TABLET PO SCH ×2 (09:27→18:18)
[2018-06-04] MEDS: NORMAL SALINE 1000 ML 1,000 ML IV PRN (09:30)
--- NOTE | 2018-06-04 15:35 | EKG REPORT ---
SEVERITY:- BORDERLINE ECG - SINUS RHYTHM ATRIAL PREMATURE COMPLEX BORDERLINE PROLONGED QT INTERVAL : Confirmed by: Tamara Boyer MD 04-Jun-2018 15:34:33
[2018-06-04] MEDS: THIAMINE HCL 100 MG, FOLIC ACID 1 MG in NORMAL SALINE 250 ML IV SCH (18:19)
--- NOTE | 2018-06-04 19:55 | Progress Note ---
Provider Note Provider Note: Addendum Additional review of the history and physical reveals that her hypertension was hypertensive urgency. She had diastolic blood pressures above 120 multiple times. Pressures ranged from 129-147. She also had systolic blood pressures greater than 180 on several occasions. They range from 183-197. She was given urgent antihypertensive medication in the emergency department. The etiology of her hypertensive urgency was a combination of medication noncompliance and alcohol withdrawal with delirium tremens.
--- NOTE | 2018-06-04 21:58 | PDOC PROGRESS REPORT ---
Subjective Progress Note for:: 06/04/18 Subjective:: FABIANA HEAD is a 47 year old female with multiple previous admissions for alcohol withdrawal. At the time of admission she had been without alcohol for 4 days. She has a history of depression, hypertension, seizure disorder, hypothyroidism. The patient was found to be profoundly hypokalemic and hypomagnesemic. The patient was seen on rounds. She is resting comfortably in bed on room air. She was able to tolerate a cardiac diet today but the patient reports she immediately had diarrhea following her meals. Her loose stools are likely as a result of her ETOH withdrawal. The patient denies tremors, hallucinations, The patient's potassium and magnesium remain very low today. Plan for electrolyte replacement and likely discharge home tomorrow. Reason For Visit: ETOH ABUSE, ETOH WITHDRAWAL Physical Exam Vital Signs: Temp Pulse Resp BP Pulse Ox 98.3 F 73 16 136/76 H 98 06/04/18 20:00 06/04/18 20:00 06/04/18 20:00 06/04/18 20:00 06/04/18 20:00 Intake & Output 06/03/18 06/04/18 06/05/18 06:59 06:59 06:59 Intake Total 1370 3242.2 1528.2 Output Total 200 500 500 Balance 1170 2742.2 1028.2 Weight 95.3 kg 94.9 kg General appearance: PRESENT: obese Eye exam: PRESENT: conjunctiva pink, PERRLA Mouth exam: PRESENT: moist Teeth exam: PRESENT: poor dentation Respiratory exam: PRESENT: clear to auscultation thomas, symmetrical, unlabored Cardiovascular exam: PRESENT: RRR Pulses: PRESENT: normal radial pulses Vascular exam: PRESENT: normal capillary refill GI/Abdominal exam: PRESENT: soft. ABSENT: distended, tenderness Rectal exam: PRESENT: deferred Extremities exam: PRESENT: full ROM Musculoskeletal exam: PRESENT: ambulatory - able to ambulate to bathroom unassisted, full ROM Neurological exam: PRESENT: alert, awake, oriented to person, oriented to place, oriented to time, oriented to situation Psychiatric exam: PRESENT: appropriate affect Skin exam: PRESENT: dry, intact, normal color Results Laboratory Results: 06/04/18 04:10 06/04/18 04:10 06/03/18 06/04/18 06/04/18 23:10 04:10 04:10 WBC 6.0 RBC 3.75 Hgb 12.1 Hct 34.8 L MCV 93 MCH 32.2 MCHC 34.6 RDW 15.5 H Plt Count 116 L Seg Neutrophils % 59.1 Lymphocytes % 28.4 Monocytes % 8.4 Eosinophils % 3.3 Basophils % 0.8 Absolute Neutrophils 3.6 Absolute Lymphocytes 1.7 Absolute Monocytes 0.5 Absolute Eosinophils 0.2 Absolute Basophils 0.0 Sodium 136.0 L 137.1 Potassium 3.1 L 3.1 L Chloride 99 101 Carbon Dioxide 29 27 Anion Gap 8 9 BUN 9 10 Creatinine 0.77 0.70 Est GFR ( Amer) > 60 > 60 Est GFR (Non-Af Amer) > 60 > 60 Glucose 86 78 Calcium 7.3 L 7.2 L Magnesium 1.3 L 1.2 L* Total Bilirubin 0.9 AST 51 H ALT 34 Alkaline Phosphatase 105 Total Protein 6.1 L Albumin 2.9 L 06/02/18 06/02/18 16:15 16:15 Creatine Kinase 410 H Troponin I 0.012 Impressions: Chest X-Ray 06/02/18 17:29 IMPRESSION: Borderline cardiomegaly without pulmonary edema. Status: Imported from PACS Assessment and Plan - Diagnosis (1) Alcohol withdrawal Qualifiers: Complication of substance-induced condition: with unspecified complication Qualified Code(s): F10.239 - Alcohol dependence with withdrawal, unspecified Is this a current diagnosis for this admission?: Yes Plan: No ETOH for 4 day upon arrival to [facility] Questionable history of a seizure while at home Patient endorses hx of ETOH w/d seizures PRN Ativa and haldol for withdrawal symptoms Daily thiamine and folic acid (2) Hypokalemia Is this a current diagnosis for this admission?: Yes Plan: Secondary to poor nutritional state Replace electrolytes IV daily chemistries advance diet from clears to cardiac hopefully discharge home in 24 hours (3) Hypomagnesemia Is this a current diagnosis for this admission?: Yes Plan: Secondary to poor nutritional status Patient admits to noncompliance with her mag oxide initiated IV magnesium sulfate advanced diet from clear liquids to cardiac diet follow up chemistry in AM likely d/c home tomorrow (4) Prolonged Q-T interval on ECG Is this a current diagnosis for this admission?: Yes Plan: Medication noncompliance with Latuda QTc > 500 Serial EKGs Continuous cardiac telemetry (5) Hypertension Qualifiers: Hypertension type: essential hypertension Qualified Code(s): I10 - Essential (primary) hypertension Is this a current diagnosis for this admission?: Yes Plan: Recent noncompliance with medications Presented to ED with hypertensive urgency restarted on all home medications Continue clonidine 0.1 mg twice daily, hydrochlorothiazide 25 mg daily Initiated lisinopril 10 mg daily and metoprolol 12.5 mg twice daily PRN hydralazine and metoprolol IV for SBP > 180 (6) Depression Qualifiers: Depression Type: unspecified Qualified Code(s): F32.9 - Major depressive disorder, single episode, unspecified Is this a current diagnosis for this admission?: Yes Plan: Holding latuda in light of her prolonged QTc PSYCH evaluation requested, recommend effexor Continue home dose sertraline IV haldol and ativan for anxiety or agitation (7) Tachycardia Is this a current diagnosis for this admission?: Yes (8) Withdrawal seizures Qualifiers: Complication of substance-induced condition: uncomplicated Qualified Code(s): F19.230 - Other psychoactive substance dependence with withdrawal, uncomplicated Is this a current diagnosis for this admission?: Yes Plan: Patient reports hx of w/d seizures States she may have experienced a seizure at home a few days ago Ativan IV PRN Seizure precautions room close to nursing station (9) Diarrhea Qualifiers: Diarrhea type: unspecified type Qualified Code(s): R19.7 - Diarrhea, unspecified Is this a current diagnosis for this admission?: Yes Plan: Likely related to alcohol withdrawal. Treated with 3L IVF in ED eating/drinking without issues - Time Time Spent with patient: 15-24 minutes Medications reviewed and adjusted accordingly: Yes Anticipated discharge: Home - Inpatient Certification Based on my medical assessment, after consideration of the patient's comorbidi ties, presenting symptoms, or acuity I expect that the services needed warrant INPATIENT care.: Yes I certify that my determination is in accordance with my understanding of [employer]alf jackson's requirements for reasonable and necessary INPATIENT services [42 CFR 412.3e].: Yes Medical Necessity: Risk of Complication if Not Cared For in Hospital
[2018-06-04] MEDS ORDERED: VENLAFAXINE HCL 37.5 MG CAP.SR.24H PO SCH (22:00)
[2018-06-05] MEDS: LEVOTHYROXINE SODIUM 0.088 MG TABLET PO SCH (06:12)
[2018-06-05] MEDS: PANTOPRAZOLE SODIUM 40 MG TABLET.DR PO SCH (06:12)
[2018-06-05 06:33] LABS: HEMATOCRIT 33.2 % (36.0-47.0); HEMOGLOBIN 11.5 g/dL (12.0-15.5); MEAN CORPUSCULAR HEMOGLOBIN 32.4 pg (27.0-33.4); MEAN CORPUSCULAR HGB CONC 34.7 g/dL (32.0-36.0); MEAN CORPUSCULAR VOLUME 94 fl (80-97); PLATELET COUNT 113 10^3/uL (150-450); RED BLOOD COUNT 3.55 10^6/uL (3.72-5.28); WHITE BLOOD COUNT 6.3 10^3/uL (4.0-10.5)
[2018-06-05 06:56] LABS: ALANINE AMINOTRANSFERASE 33 U/L (9-52); ALBUMIN 2.9 g/dL (3.5-5.0); ALKALINE PHOSPHATASE 95 U/L (38-126); ANION GAP 8 (5-19); ASPARTATE AMINO TRANSFERASE 39 U/L (14-36); BILIRUBIN,DIRECT 0.3 mg/dL (0.0-0.4); BILIRUBIN,TOTAL 0.7 mg/dL (0.2-1.3); BLOOD UREA NITROGEN 13 mg/dL (7-20); CALCIUM 7.6 mg/dL (8.4-10.2); CARBON DIOXIDE 21 mmol/L (22-30); CHLORIDE 105 mmol/L (98-107); GLUCOSE 85 mg/dL (75-110); POTASSIUM 3.4 mmol/L (3.6-5.0); SODIUM 134.4 mmol/L (137-145)
--- NOTE | 2018-06-05 09:51 | EKG REPORT ---
SEVERITY:- NORMAL ECG - SINUS RHYTHM : Confirmed by: Tamara Boyer MD 05-Jun-2018 09:51:06
[2018-06-05] MEDS ORDERED: VENLAFAXINE HCL 37.5 MG CAP.SR.24H PO SCH (10:00)
[2018-06-05] MEDS: ENOXAPARIN SODIUM INJ 40 MG/0.4 ML DISP.SYRIN SUBCUT SCH (10:15)
[2018-06-05] MEDS: HYDROCHLOROTHIAZIDE 25 MG TABLET PO SCH (10:18)
[2018-06-05] MEDS: MAGNESIUM OXIDE 400 MG TABLET PO SCH (10:18)
[2018-06-05] MEDS: LISINOPRIL 10 MG TABLET PO SCH (10:19)
[2018-06-05] MEDS: FOLIC ACID 1 MG TABLET PO SCH (10:19)
[2018-06-05] MEDS: CLONIDINE HCL 0.1 MG TABLET PO SCH (10:19)
[2018-06-05] MEDS: METOPROLOL TARTRATE 25 MG TABLET PO SCH (10:19)
[2018-06-05] MEDS: SERTRALINE HCL 50 MG TABLET PO SCH (10:20)
[2018-06-05] MEDS ORDERED: POTASSI CL 20 MEQ/50 ML RIDER 20 MEQ/50 ML RTUPB IV SCH (13:15)
[2018-06-05] MEDS: MAGNESIUM SULFATE/D5W 1 GM/100 ML RTUPB IV SCH ×2 (13:40→15:09)
[2018-06-05] MEDS ORDERED: POTASSIUM CHLORIDE 10 MEQ CAPSULE.ER PO ONE (13:45)
[2018-06-05 16:33] VITALS: BP 144/84
[2018-06-05] MEDS ORDERED: METOPROLOL TARTRATE 25 MG TABLET PO SCH (22:00)
--- NOTE | 2018-06-09 20:11 | PDOC DISCHARGE SUMMARY ---
General - Admit/Disc Date/PCP Admission Date/Primary Care Provider: 06/02/18 17:33 Discharge Date: 06/05/18 - Discharge Diagnosis (1) Alcohol withdrawal Is this a current diagnosis for this admission?: Yes (2) Hypokalemia Is this a current diagnosis for this admission?: Yes (3) Hypomagnesemia Is this a current diagnosis for this admission?: Yes (4) Prolonged Q-T interval on ECG Is this a current diagnosis for this admission?: Yes (5) Hypertension Is this a current diagnosis for this admission?: Yes (6) Depression Is this a current diagnosis for this admission?: Yes (7) Tachycardia Is this a current diagnosis for this admission?: Yes (8) Withdrawal seizures Is this a current diagnosis for this admission?: Yes (9) Diarrhea Is this a current diagnosis for this admission?: Yes - Additional Information Resuscitation Status: Full Code Discharge Diet: As Tolerated Discharge Activity: Activity As Tolerated Prescriptions: Clonidine HCl [Catapres 0.1 mg Tablet] 0.1 mg PO Q12 #60 tablet Hydrochlorothiazide [Hydrodiuril 25 mg Tablet] 25 mg PO DAILY #30 tablet Levothyroxine Sodium [Synthroid 0.088 mg Tablet] 0.088 mg PO Q6AM #60 tablet Lisinopril [Prinivil 10 mg Tablet] 10 mg PO DAILY #30 tablet Magnesium Oxide [Mag-Ox 400 mg Tablet] 400 mg PO BID #60 tablet Metoprolol Tartrate [Lopressor 25 mg Tablet] 25 mg PO Q12 #60 tablet Potassium Chloride [Klor-Con 10 Meq Capsule ER] 20 meq PO DAILY #28 tablet.sa Sertraline HCl [Zoloft 50 mg Tablet] 100 mg PO DAILY #30 tablet Venlafaxine HCl ER [Effexor Xr 37.5 mg Cap.sr] 37.5 mg PO DAILY #30 cap.sr.24h Home Medications: Albuterol Sulfate [Ventolin Hfa 8 gm Mdi (1 Mdi/ER Disp)] 2 puff IH Q6HP PRN 06/02/18 Alprazolam [Xanax 0.5 mg Tablet] 0.5 mg PO Q8HP PRN 06/02/18 Clonidine HCl [Catapres 0.1 mg Tablet] 0.1 mg PO Q12 06/02/18 Folic Acid [Folvite 1 mg Tablet] 1 mg PO DAILY 06/02/18 Hydrochlorothiazide [Hydrodiuril 25 mg Tablet] 25 mg PO DAILY 06/02/18 Ibuprofen [Motrin 600 mg Tablet] 600 mg PO Q8 06/02/18 Levothyroxine Sodium [Synthroid 0.088 mg Tablet] 0.088 mg PO Q6AM 06/02/18 Lurasidone HCl [Latuda] 20 mg PO DAILY 06/02/18 Magnesium Oxide [Mag-Ox 400 mg Tablet] 400 mg PO BID 06/02/18 Clonidine HCl [Catapres 0.1 mg Tablet] 0.1 mg PO Q12 #60 tablet 06/05/18 Hydrochlorothiazide [Hydrodiuril 25 mg Tablet] 25 mg PO DAILY #30 tablet 06/05/18 Levothyroxine Sodium [Synthroid 0.088 mg Tablet] 0.088 mg PO Q6AM #60 tablet 06/05/18 Lisinopril [Prinivil 10 mg Tablet] 10 mg PO DAILY #30 tablet 06/05/18 Magnesium Oxide [Mag-Ox 400 mg Tablet] 400 mg PO BID #60 tablet 06/05/18 Metoprolol Tartrate [Lopressor 25 mg Tablet] 25 mg PO Q12 #60 tablet 06/05/18 Potassium Chloride [Klor-Con 10 Meq Capsule ER] 20 meq PO DAILY #28 tablet.sa 06/05/18 Sertraline HCl [Zoloft 50 mg Tablet] 100 mg PO DAILY #30 tablet 06/05/18 Venlafaxine HCl ER [Effexor Xr 37.5 mg Cap.sr] 37.5 mg PO DAILY #30 cap.sr.24h 06/05/18 History of Present Illness History of Present Illness: FABIANA HEAD is a 47 year old female with multiple previous admissions for alcohol withdrawal. She has a history of depression as well as hypertension, seizure disorder, hypothyroidism and hypertension. In addition she has hypomagnesemia and has had hypokalemia on her last admission. She states that she has not had any alcohol for 4 days (serum alcohol level is 0) and is not taking her medications for a week. These medications include Latuda, Zoloft, magnesium oxide, folic acid, clonidine hydrochlorothiazide and Xanax. She also takes ibuprofen 600 mg 3 times a day with food. During her initial evaluation she was found to have magnesium level of 0.3 and potassium level of 2.6. She was also tachycardic and hypertensive. She was referred to the hospitalist service for admission. Hospital Course Hospital Course: FABIANA HEAD is a 47 year old female with multiple previous admissions for alcohol withdrawal. At the time of admission she had been without alcohol for 4 days. She has a history of depression, hypertension, seizure disorder, hypothyroidism. The patient was found to be profoundly hypokalemic and hypomagnesemic, likely due to her poor nutritional status. Her QTc upon arrival was 552. As a result her latuda was put on hold. Additionally, the patient was found to be hypertensive. She admits to recent noncompliance with medications. She was restarted on her home regimen of clonidine 0.1 mg twice daily and hydrochlorothiazide 25 mg daily. Her blood pressure remained poorly controlled, so lisinopril 10 mg daily and metoprolol 12.5 mg twice daily. For her electrolyte imbalance, the patient was treated with IV and PO electrolyte replacement. She was given a cardiac diet and within 72 hours her electrolytes were within an acceptable range. Prior to discharge, Psych was able to evaluate the patient regarding a medication replacement for latuda. They recommended effexor, which was started prior to discharge. The patient was sent home with prescriptions for her new blood pressure medication and for effexor. She was told to stop taking latuda. She was also counseled on the dangers of chronic ETOH abuse. The patient stated understanding. For further information regarding this patient's hospitalization, please refer to the EMR. Physical Exam Vital Signs: Temp Pulse Resp BP Pulse Ox 98.4 F 68 16 144/84 H 99 06/05/18 16:00 06/05/18 16:00 06/05/18 16:00 06/05/18 16:00 06/05/18 16:00 General appearance: PRESENT: morbidly obese Head exam: PRESENT: atraumatic Eye exam: PRESENT: conjunctiva pink, PERRLA Mouth exam: PRESENT: moist, tongue midline Neck exam: PRESENT: full ROM Respiratory exam: PRESENT: clear to auscultation thomas, symmetrical, unlabored Cardiovascular exam: PRESENT: RRR Pulses: PRESENT: normal radial pulses, normal dorsalis pedis pul Vascular exam: PRESENT: normal capillary refill GI/Abdominal exam: PRESENT: soft. ABSENT: distended, tenderness Rectal exam: PRESENT: deferred Extremities exam: PRESENT: full ROM Musculoskeletal exam: PRESENT: ambulatory, full ROM Neurological exam: PRESENT: alert, awake, oriented to person, oriented to place, oriented to time, oriented to situation Psychiatric exam: PRESENT: appropriate affect Skin exam: PRESENT: dry, intact, normal color Results Laboratory Results: 06/05/18 05:00 06/05/18 05:00 06/02/18 06/02/18 16:15 16:15 Creatine Kinase 410 H Troponin I 0.012 Impressions: Chest X-Ray 06/02/18 17:29 IMPRESSION: Borderline cardiomegaly without pulmonary edema. Status: Imported from PACS Qualifiers - * PATIENT BEING DISCHARGED WITH ANY OF THE FOLLOWING DIAGNOSIS: No
== END 2018-06-05 17:06 | disposition home or self-care (01) | DRG 897 ==
LOC: ER 15:46 → EH 17:33 → 4N 21:12
PROVIDERS: ADMIT Hospitalist; ATTEND Hospitalist
DX: F10.239 Alcohol dependence with withdrawal, unspecified (principal); E87.6 Hypokalemia; E83.42 Hypomagnesemia; I45.81 Long QT syndrome; E66.01 Morbid (severe) obesity due to excess calories; I16.0 Hypertensive urgency; I10 Essential (primary) hypertension; F32.9 Major depressive disorder, single episode, unspecified; G40.909 Epilepsy, unspecified, not intractable, without status epilepticus; E03.9 Hypothyroidism, unspecified; J44.9 Chronic obstructive pulmonary disease, unspecified; K21.9 Gastro-esophageal reflux disease without esophagitis; F17.210 Nicotine dependence, cigarettes, uncomplicated; R00.0 Tachycardia, unspecified; R19.7 Diarrhea, unspecified; Z91.14 Patient's other noncompliance with medication regimen; I25.2 Old myocardial infarction
CPT/HCPCS: 36415; 71045; 80048; 80053; 80076; 80307; 81001; 82550; 83690; 83735; 84100; 84484; 85025; 85027; 93005; 93010; 96361; 96374; 96375; 99291; J1650; J2060; J2405; J3411; J3475; J3480; J3490; J7030; J7050

== ENCOUNTER 2018-08-04 22:38 | Inpatient (IN) | payer MEDICARE, MEDICAID ==
[2018-08-04] MEDS ORDERED: RINGERS SOLUTION,LACTATED 1,000 ML IV ONE (23:14)
[2018-08-04] MEDS ORDERED: DIAZEPAM INJ 10 MG/2 ML DISP.SYRIN IV ONE (23:14)
[2018-08-04] MEDS ORDERED: ONDANSETRON HCL INJ/PF 4 MG/2 ML SDV IV ONE (23:15)
[2018-08-04] MEDS ORDERED: THIAMINE HCL 100 MG in NORMAL SALINE 50 ML IV ONE (23:16)
--- NOTE | 2018-08-04 23:16 | ER Document Report ---
ED General - General Chief Complaint: Alcohol Withdrawl Stated Complaint: VOMITING Time Seen by Provider: 08/04/18 23:11 Notes: Patient is a pleasant 47-year-old female presents with complaint of seizure-like activity and alcohol withdrawal. States she had a seizure yesterday. She stopped drinking for approximately 2 to 3 days ago. She has a history of alcohol abuse and has been admitted several times for alcohol withdrawal. She says that she is been vomiting uncontrollably and been unable to hold on any of her medications. She denies any injuries or seizure. No other complaints at this time. TRAVEL OUTSIDE OF THE [place] 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 Denies: Hx Hiatal Hernia, Hx Pancreatitis, Hx Ulcer Musculoskeletal Medical History: Denies Hx Arthritis Psychiatric Medical History: Reports: Hx Bipolar Disorder, Hx Depression Denies: Hx Schizophrenia Traumatic Medical History: Reports: Hx Fractures - R. leg. Pt. has a steel debi. Past Surgical History: Reports: Hx Appendectomy, Hx Cholecystectomy, Hx Orthopedic Surgery - right knee, Hx Tonsillectomy, Hx Tubal Ligation. Denies: Hx Bowel Surgery, Hx Section, Hx Hysterectomy, Hx Mastectomy - Immunizations Hx Diphtheria, Pertussis, Tetanus Vaccination: No Hx Pneumococcal Vaccination: 05/05/11 Review of Systems - Review of Systems Notes: My Normal Review Basic REVIEW OF SYSTEMS: CONSTITUTIONAL : Denies fever, chills, or sweats. Denies recent illness. EENT: Denies eye, ear, throat, or mouth pain or symptoms. Denies nasal or sinus congestion. CARDIOVASCULAR: Denies chest pain. RESPIRATORY: Denies cough, cold, or chest congestion. Denies shortness of breath, difficulty breathing, or wheezing. GASTROINTESTINAL: Denies abdominal pain. Recurrent vomiting GENITOURINARY: Denies difficulty urinating, painful urination, burning, frequency, or blood in urine. MUSCULOSKELETAL: Denies neck or back pain or joint pain or swelling. SKIN: Denies rash or skin lesions. NEUROLOGICAL: Seizure. ALL OTHER SYSTEMS REVIEWED AND NEGATIVE. Physical Exam - Vital signs Vitals: Resp 44 H 08/04/18 22:59 - Notes Notes: General Appearance: Patient is actively having severe tremor. She is awake anne marie rt does answer questions appropriately. Vitals: reviewed, See vital signs table. Head: no swelling or tenderness to the head Eyes: PERRL, EOMI, Conjuctiva clear Mouth: No decreasd moisture Lungs: No wheezing, No rales, No rhonci, No accessory muscle use, good air exchange bilaterally. Heart: Tachycardiac rate, Regular rythm, No murmur, no rub Abdomen: Normal BS, soft, No rigidity, No abdominal tenderness, No guarding, no rebound, no abdominal masses, no organomegaly Extremities: strength 5/5 in all extremities, good pulses in all extremities, no swelling or tenderness in the extremities, no edema. Skin: warm, dry, appropriate color, no rash Neuro: speech clear, oriented x 3, normal affect, responds appropriately to questions. Has severe tremor. Symmetric facial movement. No focal weakness or numbness. Course - Re-evaluation Re-evalutation: 08/04/18 23:15 Patient appears to be increased significant withdrawal. Heart rates in the 140s. She is got significant tremors. She had a seizure yesterday at home. I have ordered 7.5 mg of Valium. I have ordered IV fluids. Will order thiamine and folic acid. Labs pending. Patient placed on a monitor with seizure precautions. 08/05/18 00:07 After the 7.5 mg of Valium patient's heart rate went from 1 60-1 12. I just rechecked her and she still has some tremor. Have ordered 5 more milligrams of Valium. She is awake and alert and answering questions appropriately. Her magnesium is 0.4. I have ordered 3 g of IV magnesium. I will also order potassium as her potassium is 3.1. Nausea seems to be improving. I have spoken with the hospitalist, Dr. Santos, who agrees to evaluate the patient for admission. Dictation of this chart was performed using voice recognition software; therefore, there may be some unintended grammatical errors. - Vital Signs Vital signs: Temp Pulse Resp BP Pulse Ox 98.0 F 33 H 150/112 H 96 08/04/18 23:18 08/04/18 23:12 08/04/18 23:12 08/04/18 23:12 - Laboratory Result Diagrams: 08/04/18 23:11 08/04/18 23:11 Laboratory results interpreted by me: 08/04/18 08/04/18 23:11 23:11 MCH 33.8 H RDW 14.8 H Sodium 133.1 L Potassium 3.1 L Chloride 90 L Creatinine 1.44 H Est GFR ( Amer) 47 L Est GFR (Non-Af Amer) 39 L Glucose 165 H Magnesium 0.4 L* Total Bilirubin 1.7 H Direct Bilirubin 0.7 H AST 115 H ALT 59 H Alkaline Phosphatase 173 H Total Protein 8.4 H - EKG Interpretation by Me Additional EKG results interpreted by me: 08/04/18 23:18 EKG is reviewed and interpreted by me. EKG shows tachycardia with a rate of 143 bpm. P waves appear to occur right at the end of the T wave due to the patient's fast rate but is really difficult to determine if this is true sinus rhythm or not. QRS duration is within normal range. QT interval is prolonged. Discharge - Discharge Clinical Impression: Hypokalemia, Tachycardia, Hypomagnesemia Alcohol withdrawal Qualifiers: Complication of substance-induced condition: with unspecified complication Qualified Code(s): F10.239 - Alcohol dependence with withdrawal, unspecified Withdrawal seizures Qualifiers: Complication of substance-induced condition: uncomplicated Qualified Code(s): F19.230 - Other psychoactive substance dependence with withdrawal, uncomplicated; R56.9 - Unspecified convulsions Condition: Stable Disposition: ADMITTED INPATIENT Admitting Provider: Tom (Hospitalist) Unit Admitted: [facility]
[2018-08-04 23:26] LABS: ABSOLUTE BASOPHILS # (AUTO) 0.1 10^3/uL (0.0-0.2); ABSOLUTE LYMPHOCYTES (AUTO) 1.6 10^3/uL (0.5-4.7); ABSOLUTE MONOCYTES (AUTO) 1.1 10^3/uL (0.1-1.4); BASOPHILS % (AUTO) 0.9 % (0-2); EOSINOPHILS % (AUTO) 0.1 % (0-6); HEMATOCRIT 40.8 % (36.0-47.0); HEMOGLOBIN 14.4 g/dL (12.0-15.5); LYMPHOCYTES % (AUTO) 18.5 % (13-45); MEAN CORPUSCULAR HEMOGLOBIN 33.8 pg (27.0-33.4); MEAN CORPUSCULAR HGB CONC 35.3 g/dL (32.0-36.0); MEAN CORPUSCULAR VOLUME 96 fl (80-97); MONOCYTES % (AUTO) 12.1 % (3-13); PLATELET COUNT 220 10^3/uL (150-450); RED BLOOD COUNT 4.26 10^6/uL (3.72-5.28); RED CELL DISTRIBUTION WIDTH 14.8 % (11.5-14.0); SEGMENTED NEUTROPHILS % (AUTO) 68.4 % (42-78); TOTAL CELLS COUNTED % (AUTO) 100 %; WHITE BLOOD COUNT 8.8 10^3/uL (4.0-10.5)
[2018-08-04] MEDS ORDERED: FOLIC ACID INJ 5 MG/1 ML 10 ML VIAL IV ONE (23:30)
[2018-08-04 23:42] LABS: ALANINE AMINOTRANSFERASE 59 U/L (9-52); ALBUMIN 4.4 g/dL (3.5-5.0); ALKALINE PHOSPHATASE 173 U/L (38-126); ASPARTATE AMINO TRANSFERASE 115 U/L (14-36); BILIRUBIN,DIRECT 0.7 mg/dL (0.0-0.4); BILIRUBIN,TOTAL 1.7 mg/dL (0.2-1.3); BLOOD UREA NITROGEN 11 mg/dL (7-20); CALCIUM 8.9 mg/dL (8.4-10.2); CARBON DIOXIDE 24 mmol/L (22-30); CHLORIDE 90 mmol/L (98-107); GLUCOSE 165 mg/dL (75-110); LIPASE 175.4 U/L (23-300); POTASSIUM 3.1 mmol/L (3.6-5.0); TOTAL PROTEIN 8.4 g/dL (6.3-8.2)
[2018-08-04 23:47] LABS: ANION GAP 19 (5-19); SODIUM 133.1 mmol/L (137-145)
[2018-08-05] MEDS ORDERED: DIAZEPAM INJ 10 MG/2 ML DISP.SYRIN IV ONE (00:06)
[2018-08-05] MEDS: MAGNESIUM SULFATE/D5W 1 GM/100 ML RTUPB IV SCH ×3 (00:31→03:15)
[2018-08-05] MEDS ORDERED: MAGNESIUM HYDROXIDE SUSP 30 ML UDCUP PO PRN (00:31)
[2018-08-05] MEDS ORDERED: IPRATROPIUM/ALBUTEROL 0.5-2.5 MG/3 ML AMPUL NEB PRN (00:31)
[2018-08-05] MEDS ORDERED: THIAMINE HCL INJ 200 MG/2 ML VIAL ONE (00:48)
[2018-08-05] MEDS: POTASSI CL 20 MEQ/50 ML RIDER 20 MEQ/50 ML RTUPB IV SCH ×2 (01:16→03:15)
[2018-08-05] MEDS: LORAZEPAM INJ 2 MG/1 ML VIAL IV PRN ×3 (02:44→16:37)
[2018-08-05] MEDS: ONDANSETRON HCL INJ/PF 4 MG/2 ML SDV IV PRN ×2 (02:44→12:50)
[2018-08-05 03:00] LABS: ALANINE AMINOTRANSFERASE 58 U/L (9-52); ALKALINE PHOSPHATASE 169 U/L (38-126); ANION GAP 13 (5-19); ASPARTATE AMINO TRANSFERASE 84 U/L (14-36); BILIRUBIN,DIRECT 0.5 mg/dL (0.0-0.4); BILIRUBIN,TOTAL 1.4 mg/dL (0.2-1.3); BLOOD UREA NITROGEN 11 mg/dL (7-20); CALCIUM 8.5 mg/dL (8.4-10.2); CARBON DIOXIDE 31 mmol/L (22-30); CHLORIDE 91 mmol/L (98-107); GLUCOSE 140 mg/dL (75-110); SODIUM 135.3 mmol/L (137-145); TOTAL PROTEIN 7.9 g/dL (6.3-8.2)
--- NOTE | 2018-08-05 05:10 | PDOC H&P ---
History of Present Illness Admission Date/PCP: 08/05/18 00:41 BERNIE SAVAGE MD Patient complains of: Alcohol withdrawal History of Present Illness: FABIANA HEAD is a 47 year old female with a past medical history of severe alcoholism with alcohol withdrawal seizure, hypo-[place] anemia, hypokalemia, depression and hypertension. She presents after a seizure 24 hours ago with severe tremor and tachycardia. Patient has intractable vomiting found to have hypomagnesemia hypokalemia and tachycardia. She started on thiamine, folate, benzodiazepine and referred to the hospitalist for admission. Patient is tremulous and delusional unable to provide history. 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, Hyperlipidema, Hypertension Denies: Atrial Fibrillation, Congestive Heart Failure, Heart Murmur Pulmonary Medical History: Reports: Asthma, Chronic Obstructive Pulmonary Disease (COPD) Denies: Bronchitis, Pneumonia, Respiratory Failure, Sleep Apnea, Tuberculosis Neurological Medical History: Reports: Seizures Endocrine Medical History: Reports: Hypothyroidism Renal/ Medical History: Denies: End Stage Renal Disease GI Medical History: Reports: Gastroesophageal Reflux Disease Denies: Hiatal Hernia Musculoskeltal Medical History: Denies: Arthritis Psychiatric Medical History: Reports: Alcohol Dependency, Bipolar Disorder, Depression Hematology: Denies: Anemia, Hemophilia, Heparin Induced Thrombocytopenia Past Surgical History Past Surgical History: Reports: Appendectomy, Cholecystectomy, Orthopedic Surgery - right knee, Tonsillectomy, Tubal Ligation Denies: Amputation, Section, Hysterectomy, Mastectomy Social History Information Source: Patient, [facility] Records Smoking Status: Never Smoker Frequency of Alcohol Use: Heavy Hx Recreational Drug Use: No Drugs: None Hx Prescription Drug Abuse: No - Advance Directive Resuscitation Status: Full Code Family History Family History: Malignancy Parental Family History Reviewed: Yes Children Family History Reviewed: Yes Sibling(s) Family History Reviewed.: Yes Medication/Allergy Home Medications: Albuterol Sulfate [Ventolin Hfa 8 gm Mdi (1 Mdi/ER Disp)] 2 puff IH Q6HP PRN 06/02/18 Alprazolam [Xanax 0.5 mg Tablet] 0.5 mg PO Q8HP PRN 06/02/18 Clonidine HCl [Catapres 0.1 mg Tablet] 0.1 mg PO Q12 06/02/18 Folic Acid [Folvite 1 mg Tablet] 1 mg PO DAILY 06/02/18 Hydrochlorothiazide [Hydrodiuril 25 mg Tablet] 25 mg PO DAILY 06/02/18 Ibuprofen [Motrin 600 mg Tablet] 600 mg PO Q8 06/02/18 Levothyroxine Sodium [Synthroid 0.088 mg Tablet] 0.088 mg PO Q6AM 06/02/18 Lurasidone HCl [Latuda] 20 mg PO DAILY 06/02/18 Magnesium Oxide [Mag-Ox 400 mg Tablet] 400 mg PO BID 06/02/18 Clonidine HCl [Catapres 0.1 mg Tablet] 0.1 mg PO Q12 #60 tablet 06/05/18 Hydrochlorothiazide [Hydrodiuril 25 mg Tablet] 25 mg PO DAILY #30 tablet 06/05/18 Levothyroxine Sodium [Synthroid 0.088 mg Tablet] 0.088 mg PO Q6AM #60 tablet 06/05/18 Lisinopril [Prinivil 10 mg Tablet] 10 mg PO DAILY #30 tablet 06/05/18 Magnesium Oxide [Mag-Ox 400 mg Tablet] 400 mg PO BID #60 tablet 06/05/18 Metoprolol Tartrate [Lopressor 25 mg Tablet] 25 mg PO Q12 #60 tablet 06/05/18 Potassium Chloride [Klor-Con 10 Meq Capsule ER] 20 meq PO DAILY #28 tablet.sa 06/05/18 Sertraline HCl [Zoloft 50 mg Tablet] 100 mg PO DAILY #30 tablet 06/05/18 Venlafaxine HCl ER [Effexor Xr 37.5 mg Cap.sr] 37.5 mg PO DAILY #30 cap.sr.24h 06/05/18 Allergies/Adverse Reactions: No Known Allergies Allergy (Verified 06/08/14 00:01) Review of Systems ROS unobtainable: Due to mental status Physical Exam Vital Signs: Temp Pulse Resp BP Pulse Ox 98.0 F 115 H 29 H 166/96 H 94 08/04/18 23:18 08/05/18 02:00 08/05/18 03:01 08/05/18 03:01 08/05/18 02:00 Intake & Output 08/03/18 08/04/18 08/05/18 11:59 11:59 11:59 Intake Total 1350 Balance 1350 Weight 90.9 kg General appearance: PRESENT: disheveled, severe distress, well-developed. ABSENT: well-nourished Head exam: PRESENT: atraumatic, normocephalic Eye exam: PRESENT: conjunctiva pink, EOMI, PERRLA. ABSENT: scleral icterus Ear exam: PRESENT: normal external ear exam Mouth exam: PRESENT: dry mucosa, tongue midline Neck exam: ABSENT: carotid bruit, JVD, lymphadenopathy, thyromegaly Respiratory exam: PRESENT: prolonged expiratory phas, symmetrical, tachypnea. ABSENT: chest wall tenderness, crackles Cardiovascular exam: PRESENT: RRR, tachycardia. ABSENT: diastolic murmur, rubs, systolic murmur Pulses: PRESENT: normal dorsalis pedis pul Vascular exam: PRESENT: normal capillary refill GI/Abdominal exam: PRESENT: hyperactive bowel sounds, soft. ABSENT: distended, guarding, mass, organolmegaly, rebound, tenderness Rectal exam: PRESENT: deferred Extremities exam: PRESENT: full ROM. ABSENT: calf tenderness, clubbing, pedal edema Neurological exam: PRESENT: altered, awake, oriented to person, CN II-XII grossly intact. ABSENT: oriented to place, oriented to time Psychiatric exam: PRESENT: agitated, anxious, unusual affect Skin exam: PRESENT: dry, intact, warm. ABSENT: cyanosis, rash Results Laboratory Results: 08/04/18 23:11 08/05/18 02:22 08/04/18 08/04/18 08/05/18 23:11 23:11 02:22 WBC 8.8 RBC 4.26 Hgb 14.4 Hct 40.8 MCV 96 MCH 33.8 H MCHC 35.3 RDW 14.8 H Plt Count 220 Seg Neutrophils % 68.4 Lymphocytes % 18.5 Monocytes % 12.1 Eosinophils % 0.1 Basophils % 0.9 Absolute Neutrophils 6.0 Absolute Lymphocytes 1.6 Absolute Monocytes 1.1 Absolute Eosinophils 0.0 Absolute Basophils 0.1 Sodium 133.1 L 135.3 L Potassium 3.1 L 3.0 L* Chloride 90 L 91 L Carbon Dioxide 24 31 H Anion Gap 19 13 BUN 11 11 Creatinine 1.44 H 1.23 Est GFR ( Amer) 47 L 56 L Est GFR (Non-Af Amer) 39 L 47 L Glucose 165 H 140 H Calcium 8.9 8.5 Magnesium 0.4 L* Total Bilirubin 1.7 H 1.4 H AST 115 H 84 H ALT 59 H 58 H Alkaline Phosphatase 173 H 169 H Total Protein 8.4 H 7.9 Albumin 4.4 4.0 Lipase 175.4 Assessment and Plan - Diagnosis (1) Alcohol withdrawal delirium Is this a current diagnosis for this admission?: Yes Plan: Thiamine folate benzodiazepine supportive care (2) Hypokalemia Is this a current diagnosis for this admission?: Yes Plan: Likely secondary to hypomagnesemia and chronic alcoholism with vomiting. Repletion and reevaluation of chemistry (3) Hypomagnesemia Is this a current diagnosis for this admission?: Yes Plan: Secondary to alcoholism, repletion and reevaluation of her magnesium (4) Tachycardia Is this a current diagnosis for this admission?: Yes Plan: Secondary to #1, clonidine and benzodiazepine ordered. (5) Gastritis Is this a current diagnosis for this admission?: Yes Plan: Alcoholic gastritis most likely cause of vomiting. Proton pump inhibitor and supportive care
[2018-08-05] MEDS ORDERED: MAGNESIUM SULFATE 4 GM/100 ML RTUPB IV ONE ×2 (05:20→05:53)
[2018-08-05] MEDS: HEPARIN SOD (PORCINE) 5,000 UNIT/ML 1 ML SYRINGE SUBCUT SCH ×3 (05:59→20:59)
[2018-08-05] MEDS: DIAZEPAM INJ 10 MG/2 ML DISP.SYRIN IV SCH ×3 (06:00→21:26)
[2018-08-05 07:08] LABS: ABSOLUTE BASOPHILS # (AUTO) 0.1 10^3/uL (0.0-0.2); ABSOLUTE LYMPHOCYTES (AUTO) 1.8 10^3/uL (0.5-4.7); ABSOLUTE NEUT (AUTO) 3.4 10^3/uL (1.7-8.2); BASOPHILS % (AUTO) 0.9 % (0-2); EOSINOPHILS % (AUTO) 0.5 % (0-6); HEMATOCRIT 36.4 % (36.0-47.0); HEMOGLOBIN 12.8 g/dL (12.0-15.5); LYMPHOCYTES % (AUTO) 29.1 % (13-45); MEAN CORPUSCULAR HEMOGLOBIN 33.4 pg (27.0-33.4); MEAN CORPUSCULAR HGB CONC 35.2 g/dL (32.0-36.0); MEAN CORPUSCULAR VOLUME 95 fl (80-97); MONOCYTES % (AUTO) 15.1 % (3-13); PLATELET COUNT 138 10^3/uL (150-450); RED BLOOD COUNT 3.84 10^6/uL (3.72-5.28); RED CELL DISTRIBUTION WIDTH 14.5 % (11.5-14.0); SEGMENTED NEUTROPHILS % (AUTO) 54.4 % (42-78); TOTAL CELLS COUNTED % (AUTO) 100 %; WHITE BLOOD COUNT 6.3 10^3/uL (4.0-10.5)
--- NOTE | 2018-08-05 07:58 | EKG REPORT ---
SEVERITY:- ABNORMAL ECG - JUNCTIONAL TACHYCARDIA ABNRM R PROG, CONSIDER ASMI OR LEAD PLACEMENT BORDERLINE ST DEPRESSION, LATERAL LEADS PROLONGED QT INTERVAL : Confirmed by: Tamara Boyer MD 05-Aug-2018 07:57:21
[2018-08-05] MEDS ORDERED: HYDRALAZINE HCL INJ/PF 20 MG/1 ML SDV IV PRN (08:57)
[2018-08-05] MEDS: IPRATROPIUM/ALBUTEROL 0.5-2.5 MG/3 ML AMPUL NEB SCH ×2 (08:58→20:32)
[2018-08-05] MEDS: POTASSIUM CHLORIDE 20 MEQ PACKET PO SCH (09:08)
[2018-08-05] MEDS: PANTOPRAZOLE SODIUM 40 MG VIAL IV SCH ×2 (09:08→21:12)
[2018-08-05] MEDS: CLONIDINE HCL 0.1 MG TABLET PO SCH ×2 (09:08→21:26)
[2018-08-05] MEDS: METOPROLOL TARTRATE 25 MG TABLET PO SCH ×2 (09:08→21:26)
[2018-08-05] MEDS: MAGNESIUM OXIDE 400 MG TABLET PO SCH ×2 (09:08→17:00)
[2018-08-05] MEDS ORDERED: SERTRALINE HCL 50 MG TABLET PO SCH (10:00)
[2018-08-05] MEDS ORDERED: LISINOPRIL 10 MG TABLET PO SCH (10:00)
[2018-08-05] MEDS: NORMAL SALINE 1000 ML 1,000 ML IV PRN (12:46)
[2018-08-05] MEDS ORDERED: ACETAMINOPHEN 325 MG TABLET PO PRN (16:10)
[2018-08-05] MEDS ORDERED: GUAIFENESIN SYRP 200 MG/10 ML UDC PO PRN (16:10)
[2018-08-05] MEDS: IBUPROFEN 600 MG TABLET PO PRN (16:34)
[2018-08-05] MEDS: NORMAL SALINE 1000 ML 1,000 ML with POTASSIUM CHLORIDE 20 MEQ, MAGNESIUM SULFATE 8 MEQ,... IV SCH ×5 (17:01)
--- NOTE | 2018-08-05 17:08 | Progress Note ---
Provider Note Provider Note: The patient is a 47-year-old female with a past medical history of [place], hyperlipidemia, hypertension, asthma, COPD, seizure disorder, hypothyroidism, GERD, alcohol dependence, bipolar, depression who presented to the emergency department with report of alcohol withdrawal related seizure. She was admitted early this morning by the [facility] Control Room Operator. Overnight events, vital signs, laboratory evaluation, EKG and plan of care reviewed. Agree with the plan as established by the previous provider. (1) Alcohol withdrawal delirium Patient is admitted to [facility] [place] [facility] on continuous cardiac telemetry. She is provided IV fluids, scheduled and as needed benzodiazepines, banana bag nightly, fall/seizure/aspiration precautions. (2) Hypokalemia Hypomagnesemia is corrected. She has been provided K riders and will start on banana bag nightly. We will monitor serial chemistry. (3) Hypomagnesemia Replete. Secondary to alcoholism. (4) Tachycardia Improved; Heart rate today primarily in the 70s and 80s. Secondary to #1, clonidine and benzodiazepine ordered. (5) Gastritis Alcoholic gastritis most likely cause of vomiting. Continue IV fluids. Proton pump inhibitor. Antiemetics as needed.
[2018-08-05] MEDS: PANTOPRAZOLE SODIUM 40 MG TABLET.DR PO SCH (21:26)
[2018-08-06] MEDS: NORMAL SALINE 1000 ML 1,000 ML IV PRN ×2 (01:03→13:11)
[2018-08-06] MEDS: LORAZEPAM INJ 2 MG/1 ML VIAL IV PRN ×3 (03:11→09:10)
[2018-08-06] MEDS: HEPARIN SOD (PORCINE) 5,000 UNIT/ML 1 ML SYRINGE SUBCUT SCH ×3 (05:06→22:25)
[2018-08-06] MEDS: DIAZEPAM INJ 10 MG/2 ML DISP.SYRIN IV SCH (05:10)
[2018-08-06 06:40] LABS: ABSOLUTE BASOPHILS # (AUTO) 0.1 10^3/uL (0.0-0.2); ABSOLUTE EOSINOPHILS # (AUTO) 0.1 10^3/uL (0.0-0.6); ABSOLUTE LYMPHOCYTES (AUTO) 1.8 10^3/uL (0.5-4.7); ABSOLUTE MONOCYTES (AUTO) 0.6 10^3/uL (0.1-1.4); ABSOLUTE NEUT (AUTO) 3.3 10^3/uL (1.7-8.2); BASOPHILS % (AUTO) 0.9 % (0-2); HEMATOCRIT 30.3 % (36.0-47.0); LYMPHOCYTES % (AUTO) 30.5 % (13-45); MEAN CORPUSCULAR HEMOGLOBIN 34.3 pg (27.0-33.4); MEAN CORPUSCULAR VOLUME 98 fl (80-97); MONOCYTES % (AUTO) 9.7 % (3-13); PLATELET COUNT 126 10^3/uL (150-450); RED BLOOD COUNT 3.08 10^6/uL (3.72-5.28); RED CELL DISTRIBUTION WIDTH 14.3 % (11.5-14.0); SEGMENTED NEUTROPHILS % (AUTO) 56.9 % (42-78); TOTAL CELLS COUNTED % (AUTO) 100 %; WHITE BLOOD COUNT 5.9 10^3/uL (4.0-10.5)
[2018-08-06 06:46] LABS: ANION GAP 7 (5-19); BLOOD UREA NITROGEN 16 mg/dL (7-20); CALCIUM 7.7 mg/dL (8.4-10.2); CARBON DIOXIDE 29 mmol/L (22-30); CHLORIDE 100 mmol/L (98-107); GLUCOSE 98 mg/dL (75-110); POTASSIUM 3.5 mmol/L (3.6-5.0)
[2018-08-06 06:47] LABS: HEMOGLOBIN 10.6 g/dL (12.0-15.5)
[2018-08-06] MEDS: ONDANSETRON HCL INJ/PF 4 MG/2 ML SDV IV PRN (07:40)
[2018-08-06] MEDS: IPRATROPIUM/ALBUTEROL 0.5-2.5 MG/3 ML AMPUL NEB SCH ×2 (08:48→20:27)
[2018-08-06] MEDS: METOPROLOL TARTRATE 25 MG TABLET PO SCH ×3 (09:24→22:33)
[2018-08-06] MEDS: POTASSIUM CHLORIDE 20 MEQ PACKET PO SCH (09:24)
[2018-08-06] MEDS: CLONIDINE HCL 0.1 MG TABLET PO SCH ×3 (09:25→22:33)
[2018-08-06] MEDS: PANTOPRAZOLE SODIUM 40 MG TABLET.DR PO SCH ×2 (09:25→22:34)
[2018-08-06] MEDS: MAGNESIUM OXIDE 400 MG TABLET PO SCH ×2 (09:25→18:07)
[2018-08-06] MEDS ORDERED: HALOPERIDOL LACTATE INJ 5 MG/1 ML VIAL ONE (10:25)
[2018-08-06] MEDS ORDERED: HALOPERIDOL LACTATE INJ 5 MG/1 ML VIAL IV ONE (10:38)
[2018-08-06] MEDS ORDERED: ONDANSETRON HCL INJ/PF 4 MG/2 ML SDV IV PRN (11:00)
[2018-08-06] MEDS: DIAZEPAM 5 MG TABLET PO SCH ×3 (11:03→23:19)
[2018-08-06] MEDS: VENLAFAXINE HCL 37.5 MG CAP.SR.24H PO SCH (11:03)
[2018-08-06 11:59] LABS: APPEARANCE,URINE CLOUDY; BILIRUBIN,URINE NEGATIVE (NEGATIVE); GLUCOSE, URINE NEGATIVE (NEGATIVE); KETONES,URINE TRACE mg/dL (NEGATIVE); LEUKOCYTE ESTERASE,URINE LARGE (NEGATIVE); NITRITE,URINE NEGATIVE (NEGATIVE); PROTEIN,URINE 100 mg/dL (NEGATIVE); URINE SPECIFIC GRAVITY 1.023
[2018-08-06 12:05] LABS: COLOR,URINE DARK YELLOW
[2018-08-06 12:31] LABS: URINE CREATININE 394.1 mg/dL (15-278)
[2018-08-06] MEDS ORDERED: DIAZEPAM 5 MG TABLET PO SCH (14:00)
[2018-08-06] MEDS: HALOPERIDOL LACTATE INJ 5 MG/1 ML VIAL IV PRN (15:05)
[2018-08-06] MEDS: NORMAL SALINE 1000 ML 1,000 ML with POTASSIUM CHLORIDE 20 MEQ, MAGNESIUM SULFATE 8 MEQ,... IV SCH ×5 (18:07)
--- NOTE | 2018-08-06 19:07 | PDOC PROGRESS REPORT ---
Subjective Progress Note for:: 08/06/18 Reason For Visit: ETOH WITHDRAWAL SERIZUE Physical Exam Vital Signs: Temp Pulse Resp BP Pulse Ox 97.9 F 73 18 116/67 93 08/06/18 12:06 08/06/18 12:06 08/06/18 12:06 08/06/18 12:06 08/06/18 12:06 Intake & Output 08/05/18 08/06/18 08/07/18 06:59 06:59 06:59 Intake Total 1350 3463 Output Total 300 Balance 1350 3163 Weight 91 kg 98.6 kg General appearance: PRESENT: disheveled, mild distress, well-developed, well- nourished Head exam: PRESENT: atraumatic, normocephalic Eye exam: PRESENT: conjunctiva pink, EOMI, PERRLA. ABSENT: scleral icterus Ear exam: PRESENT: normal external ear exam Mouth exam: PRESENT: moist, tongue midline Teeth exam: PRESENT: poor dentation Neck exam: ABSENT: carotid bruit, JVD, lymphadenopathy, thyromegaly Respiratory exam: PRESENT: clear to auscultation thomas, prolonged expiratory phas, symmetrical, unlabored. ABSENT: rales, rhonchi, wheezes Cardiovascular exam: PRESENT: RRR, +S1, +S2, tachycardia. ABSENT: diastolic murmur, rubs, systolic murmur Pulses: PRESENT: normal dorsalis pedis pul Vascular exam: PRESENT: normal capillary refill GI/Abdominal exam: PRESENT: normal bowel sounds, soft. ABSENT: distended, guarding, mass, organolmegaly, rebound, tenderness Rectal exam: PRESENT: deferred Extremities exam: PRESENT: full ROM. ABSENT: calf tenderness, clubbing, pedal edema Neurological exam: PRESENT: alert, altered, awake, oriented to person, CN II-XII grossly intact, other - Impulsive, pulling at IV. ABSENT: oriented to place, oriented to time, oriented to situation, motor sensory deficit Psychiatric exam: PRESENT: agitated, anxious. ABSENT: homicidal ideation, suicidal ideation Skin exam: PRESENT: dry, intact, warm. ABSENT: cyanosis, rash Results Laboratory Results: 08/06/18 05:47 08/06/18 05:47 08/06/18 08/06/18 08/06/18 05:47 05:47 08:48 WBC 5.9 RBC 3.08 L Hgb 10.6 L D Hct 30.3 L MCV 98 H MCH 34.3 H MCHC 35.0 RDW 14.3 H Plt Count 126 L Seg Neutrophils % 56.9 Lymphocytes % 30.5 Monocytes % 9.7 Eosinophils % 2.0 Basophils % 0.9 Absolute Neutrophils 3.3 Absolute Lymphocytes 1.8 Absolute Monocytes 0.6 Absolute Eosinophils 0.1 Absolute Basophils 0.1 Sodium 136.0 L Potassium 3.5 L Chloride 100 Carbon Dioxide 29 Anion Gap 7 BUN 16 Creatinine 1.85 H Est GFR ( Amer) 35 L Est GFR (Non-Af Amer) 29 L Glucose 98 Calcium 7.7 L Magnesium 2.3 Urine Color DARK YELLOW Urine Appearance CLOUDY Urine pH 5.0 Ur Specific [place] 1.023 Urine Protein 100 H Urine Glucose (UA) NEGATIVE Urine Ketones TRACE H Urine Blood SMALL H Urine Nitrite NEGATIVE Ur Leukocyte Esterase LARGE H Urine WBC (Auto) >182 Urine RBC (Auto) 19 Assessment and Plan - Diagnosis (1) Alcohol withdrawal delirium Is this a current diagnosis for this admission?: Yes Plan: Unfortunately the patient has been very impulsive, attempting to fall out of bed with fall risk, pulling at lines, utilizing phone to call various areas of the hospital and reports that she has been kidnapped. She is alert and oriented to self only today. Patient is admitted to [facility] on continuous cardiac telemetry. She is provided IV fluids. Scheduled p.o. Valium. As needed IV Ativan 2 mg every 2 hours for withdrawal/anxiety/agitation. IV hydralazine 5 mg every 6 hours for acute agitation. Banana bag nightly Fall/seizure/aspiration precautions. Soft limb restraints and sitter for safety. (2) Hypokalemia Is this a current diagnosis for this admission?: Yes Plan: Replete. We will continue to monitor with daily chemistries and replace as necessary. (3) Hypomagnesemia Is this a current diagnosis for this admission?: Yes Plan: Replete. (4) Tachycardia Is this a current diagnosis for this admission?: Yes Plan: Improved; Heart rate today primarily in the 70s and 80s. Secondary to #1, clonidine and benzodiazepine ordered. (5) Gastritis Is this a current diagnosis for this admission?: Yes Plan: Alcoholic gastritis most likely cause of vomiting. Continue IV fluids. Proton pump inhibitor. Antiemetics as needed. (6) ALEJA (acute kidney injury) Is this a current diagnosis for this admission?: Yes Plan: Cr 1.85 today FeNA 0.3%; pre-renal secondary to dehydration and hypotension overnight. Avoid nephrotoxic medications as able. Have increased IV fluid rate. Continue banana bag nightly. Avoid hypotension; dosing of Ativan is decreased. Continue monitor with daily chemistries. - Time Time Spent with patient: 15-24 minutes Medications reviewed and adjusted accordingly: Yes Anticipated discharge: Home
[2018-08-06] MEDS ORDERED: CEFTRIAXONE 1 GM/D5W RTU 1 GM/50 ML RTUPB IV SCH (22:00)
[2018-08-06] MEDS: CEFTRIAXONE SODIUM 1,000 MG in DEXTROSE 5%-WATER 50 ML IV SCH (22:33)
[2018-08-07] MEDS: HALOPERIDOL LACTATE INJ 5 MG/1 ML VIAL IV PRN ×3 (02:41→18:00)
[2018-08-07 05:01] LABS: HEMATOCRIT 31.7 % (36.0-47.0); HEMOGLOBIN 10.8 g/dL (12.0-15.5); MEAN CORPUSCULAR HEMOGLOBIN 33.9 pg (27.0-33.4); MEAN CORPUSCULAR HGB CONC 34.2 g/dL (32.0-36.0); MEAN CORPUSCULAR VOLUME 99 fl (80-97); PLATELET COUNT 137 10^3/uL (150-450); RED BLOOD COUNT 3.19 10^6/uL (3.72-5.28); RED CELL DISTRIBUTION WIDTH 14.1 % (11.5-14.0); WHITE BLOOD COUNT 6.1 10^3/uL (4.0-10.5)
[2018-08-07 05:24] LABS: ANION GAP 6 (5-19); BLOOD UREA NITROGEN 16 mg/dL (7-20); CALCIUM 8.3 mg/dL (8.4-10.2); CARBON DIOXIDE 28 mmol/L (22-30); CHLORIDE 105 mmol/L (98-107); GLUCOSE 88 mg/dL (75-110); POTASSIUM 4.2 mmol/L (3.6-5.0); SODIUM 138.8 mmol/L (137-145)
[2018-08-07] MEDS: HEPARIN SOD (PORCINE) 5,000 UNIT/ML 1 ML SYRINGE SUBCUT SCH ×3 (06:55→21:45)
[2018-08-07] MEDS: LEVOTHYROXINE SODIUM 0.088 MG TABLET PO SCH (06:58)
[2018-08-07] MEDS: DIAZEPAM 5 MG TABLET PO SCH ×3 (06:58→17:13)
[2018-08-07] MEDS ORDERED: POTASSI CL 20 MEQ/1/2NS 1L 0 MEQ/0 ML RTUINJ IV ONE (08:14)
[2018-08-07] MEDS: IPRATROPIUM/ALBUTEROL 0.5-2.5 MG/3 ML AMPUL NEB SCH ×2 (08:17→21:00)
[2018-08-07] MEDS: CLONIDINE HCL 0.1 MG TABLET PO SCH ×2 (09:20→21:54)
[2018-08-07] MEDS: POTASSIUM CHLORIDE 20 MEQ PACKET PO SCH (09:20)
[2018-08-07] MEDS: LORAZEPAM INJ 2 MG/1 ML VIAL IV PRN ×4 (09:20→18:00)
[2018-08-07] MEDS: PANTOPRAZOLE SODIUM 40 MG TABLET.DR PO SCH ×2 (09:21→21:53)
[2018-08-07] MEDS: METOPROLOL TARTRATE 25 MG TABLET PO SCH ×2 (09:21→21:53)
[2018-08-07] MEDS: MAGNESIUM OXIDE 400 MG TABLET PO SCH ×2 (09:21→17:14)
[2018-08-07] MEDS: VENLAFAXINE HCL 37.5 MG CAP.SR.24H PO SCH (09:21)
--- NOTE | 2018-08-07 12:51 | PDOC PROGRESS REPORT ---
Subjective Progress Note for:: 08/07/18 Subjective:: The patient is a 47-year-old female with a past medical history of [place], hyperlipidemia, hypertension, asthma, COPD, seizure disorder, hypothyroidism, GERD, alcohol dependence, bipolar, depression who presented to the emergency department with report of alcohol withdrawal related seizure. Patient was seen on morning rounds. She was found resting in bed, comfortably, on room air. She is awake and orientated to self only. She tells me that she is my neighbor and asks for help untangling a purse strap from the bed (references her wrist restraint). She is noted to be impulsive and tremulous. She denies headache, dizziness, chest pain, shortness of breath, abdominal pain and nausea. She has no questions or concerns at this time. No concerns per nursing. Reason For Visit: ETOH WITHDRAWAL SERIZUE Physical Exam Vital Signs: Temp Pulse Resp BP Pulse Ox 98.0 F 72 18 129/80 H 97 08/07/18 07:38 08/07/18 08:15 08/07/18 08:15 08/07/18 07:38 08/07/18 08:15 Intake & Output 08/06/18 08/07/18 08/08/18 06:59 06:59 06:59 Intake Total 3463 1252 1073 Output Total 300 700 Balance 3163 552 1073 Weight 98.6 kg 101.8 kg General appearance: PRESENT: no acute distress, disheveled, obese, well- developed, well-nourished Head exam: PRESENT: atraumatic, normocephalic Eye exam: PRESENT: conjunctiva pink, EOMI, PERRLA. ABSENT: scleral icterus Ear exam: PRESENT: normal external ear exam Mouth exam: PRESENT: moist, tongue midline Teeth exam: PRESENT: poor dentation Neck exam: ABSENT: carotid bruit, JVD, lymphadenopathy, thyromegaly Respiratory exam: PRESENT: clear to auscultation thomas, symmetrical, unlabored. ABSENT: rales, rhonchi, wheezes Cardiovascular exam: PRESENT: RRR, +S1, +S2. ABSENT: diastolic murmur, rubs, systolic murmur Pulses: PRESENT: normal dorsalis pedis pul Vascular exam: PRESENT: normal capillary refill GI/Abdominal exam: PRESENT: normal bowel sounds, soft. ABSENT: distended, guarding, mass, organolmegaly, rebound, tenderness Rectal exam: PRESENT: deferred Extremities exam: PRESENT: full ROM. ABSENT: calf tenderness, clubbing, pedal edema Neurological exam: PRESENT: alert, awake, oriented to person, CN II-XII grossly intact, other - tremulous, impulsive. ABSENT: oriented to place, oriented to time, oriented to situation, motor sensory deficit Psychiatric exam: PRESENT: appropriate affect, normal mood. ABSENT: homicidal ideation, suicidal ideation Skin exam: PRESENT: dry, intact, warm. ABSENT: cyanosis, rash Results Laboratory Results: 08/07/18 04:19 08/07/18 04:19 08/07/18 08/07/18 04:19 04:19 WBC 6.1 RBC 3.19 L Hgb 10.8 L Hct 31.7 L MCV 99 H MCH 33.9 H MCHC 34.2 RDW 14.1 H Plt Count 137 L Sodium 138.8 Potassium 4.2 Chloride 105 Carbon Dioxide 28 Anion Gap 6 BUN 16 Creatinine 1.30 H Est GFR ( Amer) 53 L Est GFR (Non-Af Amer) 44 L Glucose 88 Calcium 8.3 L Assessment and Plan - Diagnosis (1) Alcohol withdrawal delirium Is this a current diagnosis for this admission?: Yes Plan: Unfortunately the patient has been very impulsive, attempting to fall out of bed with fall risk, pulling at lines, utilizing phone to call various areas of the hospital and reports that she has been kidnapped. She is alert and oriented to self only today. Patient is admitted to [facility] on continuous cardiac telemetry. She is provided IV fluids. Scheduled p.o. Valium. As needed IV Ativan 2 mg every 2 hours for withdrawal/anxiety/agitation. IV hydralazine 5 mg every 6 hours for acute agitation. Banana bag nightly Fall/seizure/aspiration precautions. Soft limb restraints and sitter for safety. (2) Hypokalemia Is this a current diagnosis for this admission?: Yes Plan: Replete. We will continue to monitor with daily chemistries and replace as necessary. (3) Hypomagnesemia Is this a current diagnosis for this admission?: Yes Plan: Replete. (4) Tachycardia Is this a current diagnosis for this admission?: Yes Plan: Resolved. Secondary to #1, clonidine and benzodiazepine ordered. (5) Gastritis Is this a current diagnosis for this admission?: Yes Plan: Improved; no episodes ov emesis x24 hrs Alcoholic gastritis most likely cause of vomiting. Continue IV fluids. Proton pump inhibitor. Antiemetics as needed. (6) ALEJA (acute kidney injury) Is this a current diagnosis for this admission?: Yes Plan: Improved; Cr 1.85-> 1.30 today FeNA 0.3%; pre-renal secondary to dehydration and hypotension. Avoid nephrotoxic medications as able. Have increased IV fluid rate. Continue banana bag nightly. Avoid hypotension; dosing of Ativan is decreased. Continue monitor with daily chemistries. (7) Seizure Is this a current diagnosis for this admission?: Yes Plan: Secondary to EtOH abuse and withdrawal. Alcohol withdrawal management as above. Fall seizure aspiration precautions in place. - Time Time Spent with patient: 15-24 minutes Medications reviewed and adjusted accordingly: Yes Anticipated discharge: Home
[2018-08-07] MEDS: NORMAL SALINE 1000 ML 1,000 ML with POTASSIUM CHLORIDE 20 MEQ, MAGNESIUM SULFATE 8 MEQ,... IV SCH ×5 (17:14)
[2018-08-07] MEDS: CEFTRIAXONE SODIUM 1,000 MG in DEXTROSE 5%-WATER 50 ML IV SCH (21:52)
[2018-08-08] MEDS: HALOPERIDOL LACTATE INJ 5 MG/1 ML VIAL IV PRN (00:16)
[2018-08-08] MEDS: DIAZEPAM 5 MG TABLET PO SCH ×5 (00:16→23:37)
[2018-08-08] MEDS: IBUPROFEN 600 MG TABLET PO PRN (02:04)
[2018-08-08] MEDS: LORAZEPAM INJ 2 MG/1 ML VIAL IV PRN ×5 (02:08→21:51)
[2018-08-08 04:36] LABS: HEMATOCRIT 29.7 % (36.0-47.0); HEMOGLOBIN 10.2 g/dL (12.0-15.5); MEAN CORPUSCULAR HGB CONC 34.4 g/dL (32.0-36.0); MEAN CORPUSCULAR VOLUME 99 fl (80-97); PLATELET COUNT 146 10^3/uL (150-450); RED CELL DISTRIBUTION WIDTH 14.5 % (11.5-14.0); WHITE BLOOD COUNT 6.3 10^3/uL (4.0-10.5)
[2018-08-08 04:58] LABS: ANION GAP 7 (5-19); BLOOD UREA NITROGEN 15 mg/dL (7-20); CALCIUM 8.8 mg/dL (8.4-10.2); CARBON DIOXIDE 25 mmol/L (22-30); CHLORIDE 106 mmol/L (98-107); GLUCOSE 91 mg/dL (75-110); POTASSIUM 4.6 mmol/L (3.6-5.0); SODIUM 137.5 mmol/L (137-145)
[2018-08-08] MEDS: LEVOTHYROXINE SODIUM 0.088 MG TABLET PO SCH (05:52)
[2018-08-08] MEDS: HEPARIN SOD (PORCINE) 5,000 UNIT/ML 1 ML SYRINGE SUBCUT SCH ×3 (05:53→21:51)
[2018-08-08] MEDS: IPRATROPIUM/ALBUTEROL 0.5-2.5 MG/3 ML AMPUL NEB SCH ×2 (08:13→21:08)
[2018-08-08] MEDS: PANTOPRAZOLE SODIUM 40 MG TABLET.DR PO SCH ×2 (09:20→21:51)
[2018-08-08] MEDS: MAGNESIUM OXIDE 400 MG TABLET PO SCH ×2 (09:20→17:00)
[2018-08-08] MEDS: METOPROLOL TARTRATE 25 MG TABLET PO SCH ×2 (09:20→21:50)
[2018-08-08] MEDS: CLONIDINE HCL 0.1 MG TABLET PO SCH ×2 (09:20→21:50)
[2018-08-08] MEDS: POTASSIUM CHLORIDE 20 MEQ PACKET PO SCH (09:21)
[2018-08-08] MEDS: VENLAFAXINE HCL 37.5 MG CAP.SR.24H PO SCH (09:21)
--- NOTE | 2018-08-08 12:11 | PDOC PROGRESS REPORT ---
Subjective Progress Note for:: 08/08/18 Subjective:: The patient is a 47-year-old female with a past medical history of [place], hyperlipidemia, hypertension, asthma, COPD, seizure disorder, hypothyroidism, GERD, alcohol dependence, bipolar, depression who presented to the emergency department with report of alcohol withdrawal related seizure. Patient was seen on morning rounds. She was found resting in bed, comfortably, on room air. She is A&Ox4. She is able to tell me that she came to the hospital for aseizure due to her alcohol drinking. She reports previous history of the same. She confirms she drinks 1/5th Vodka daily. She denies offer for psych social worker or mental health evaluations. She is noted to be diaphoretic and tremulous. She denies headache, dizziness, chest pain, shortness of breath, abdominal pain and nausea. She has no questions or concerns at this time. No concerns per nursing. Reason For Visit: ETOH WITHDRAWAL SERIZUE Physical Exam Vital Signs: Temp Pulse Resp BP Pulse Ox 97.9 F 72 16 136/80 H 91 L 08/07/18 19:44 08/08/18 08:15 08/08/18 08:15 08/07/18 19:44 08/08/18 08:15 Intake & Output 08/07/18 08/08/18 08/09/18 06:59 06:59 06:59 Intake Total 1252 2057 Output Total 700 600 Balance 552 1457 Weight 101.8 kg 103.9 kg General appearance: PRESENT: no acute distress, disheveled - diaphoretic, morbidly obese, well-developed, well-nourished Head exam: PRESENT: atraumatic, normocephalic Eye exam: PRESENT: conjunctiva pink, EOMI, PERRLA. ABSENT: scleral icterus Ear exam: PRESENT: normal external ear exam Mouth exam: PRESENT: moist, tongue midline Teeth exam: PRESENT: poor dentation Neck exam: ABSENT: carotid bruit, JVD, lymphadenopathy, thyromegaly Respiratory exam: PRESENT: clear to auscultation thomas, symmetrical, unlabored. ABSENT: rales, rhonchi, wheezes Cardiovascular exam: PRESENT: RRR, +S1, +S2. ABSENT: diastolic murmur, rubs, systolic murmur Pulses: PRESENT: normal dorsalis pedis pul Vascular exam: PRESENT: normal capillary refill GI/Abdominal exam: PRESENT: normal bowel sounds, soft. ABSENT: distended, guarding, mass, organolmegaly, rebound, tenderness Rectal exam: PRESENT: deferred Extremities exam: PRESENT: full ROM. ABSENT: calf tenderness, clubbing, pedal edema Neurological exam: PRESENT: alert, awake, oriented to person, oriented to place, oriented to time, oriented to situation, CN II-XII grossly intact, other - temulous. ABSENT: motor sensory deficit Psychiatric exam: PRESENT: appropriate affect, normal mood. ABSENT: homicidal ideation, suicidal ideation Skin exam: PRESENT: dry, intact, warm. ABSENT: cyanosis, rash Results Laboratory Results: 08/08/18 04:12 08/08/18 04:12 08/08/18 08/08/18 04:12 04:12 WBC 6.3 RBC 3.00 L Hgb 10.2 L Hct 29.7 L MCV 99 H MCH 34.0 H MCHC 34.4 RDW 14.5 H Plt Count 146 L Sodium 137.5 Potassium 4.6 Chloride 106 Carbon Dioxide 25 Anion Gap 7 BUN 15 Creatinine 0.94 Est GFR ( Amer) > 60 Est GFR (Non-Af Amer) > 60 Glucose 91 Calcium 8.8 08/06/18 08:48 Clean Catch Midstream Urine Culture - Final Escherichia Coli Assessment and Plan - Diagnosis (1) Alcohol withdrawal delirium Is this a current diagnosis for this admission?: Yes Plan: Improved today; A&Ox4, answers questions and follows directions. She is noted to be diaphoretic and tremulous. She is required Valium 40 mg p.o., Ativan 24 mg IV, and Haldol 20 mg IV over the last 24 hours for management of her withdrawal symptoms. Patient is admitted to [facility] on continuous cardiac telemetry. She is provided IV fluids. Scheduled p.o. Valium. As needed IV Ativan 2 mg every 2 hours for withdrawal/anxiety/agitation. IV hydralazine 5 mg every 6 hours for acute agitation. Banana bag nightly Fall/seizure/aspiration precautions. (2) Hypokalemia Is this a current diagnosis for this admission?: Yes Plan: Replete. We will continue to monitor with daily chemistries and replace as necessary. (3) Hypomagnesemia Is this a current diagnosis for this admission?: Yes Plan: Replete. (4) Tachycardia Is this a current diagnosis for this admission?: Yes Plan: Resolved. Secondary to #1, clonidine and benzodiazepine ordered. (5) Gastritis Is this a current diagnosis for this admission?: Yes Plan: Resolved; no episodes of emesis >48 hrs. Toelrating regular diet. Alcoholic gastritis most likely cause of vomiting. Continue IV fluids. Proton pump inhibitor. Antiemetics as needed. (6) ALEJA (acute kidney injury) Is this a current diagnosis for this admission?: Yes Plan: Resolved; Cr 1.85-> 1.30-> 0.94 today FeNA 0.3%; pre-renal secondary to dehydration and hypotension. Avoid nephrotoxic medications as able. Continue IVF. Continue banana bag nightly. Avoid hypotension; dosing of Ativan is decreased. Continue monitor with daily chemistries. (7) Seizure Is this a current diagnosis for this admission?: Yes Plan: Secondary to EtOH abuse and withdrawal. Alcohol withdrawal management as above. Fall seizure aspiration precautions in place. (8) UTI (urinary tract infection) Qualifiers: Urinary tract infection type: acute cystitis Hematuria presence: with hematuria Qualified Code(s): N30.01 - Acute cystitis with hematuria Is this a current diagnosis for this admission?: Yes Plan: Urinalysis and urine culture confirmed E. coli UTI. She is on IV Rocephin; Day #2. - Time Time Spent with patient: 15-24 minutes Medications reviewed and adjusted accordingly: Yes Anticipated discharge: Home
[2018-08-08] MEDS: NORMAL SALINE 1000 ML 1,000 ML with POTASSIUM CHLORIDE 20 MEQ, MAGNESIUM SULFATE 8 MEQ,... IV SCH ×5 (17:01)
[2018-08-08] MEDS: CEFTRIAXONE SODIUM 1,000 MG in DEXTROSE 5%-WATER 50 ML IV SCH (21:51)
[2018-08-09] MEDS: HALOPERIDOL LACTATE INJ 5 MG/1 ML VIAL IV PRN (03:27)
[2018-08-09] MEDS: DIAZEPAM 5 MG TABLET PO SCH ×3 (06:29→17:55)
[2018-08-09] MEDS: HEPARIN SOD (PORCINE) 5,000 UNIT/ML 1 ML SYRINGE SUBCUT SCH ×3 (06:30→21:28)
[2018-08-09] MEDS: LEVOTHYROXINE SODIUM 0.088 MG TABLET PO SCH (06:30)
[2018-08-09] MEDS: NORMAL SALINE 1000 ML 1,000 ML IV PRN ×2 (06:31→20:38)
[2018-08-09] MEDS: IPRATROPIUM/ALBUTEROL 0.5-2.5 MG/3 ML AMPUL NEB SCH ×2 (08:08→21:00)
[2018-08-09] MEDS: POTASSIUM CHLORIDE 20 MEQ PACKET PO SCH (10:19)
[2018-08-09] MEDS: PANTOPRAZOLE SODIUM 40 MG TABLET.DR PO SCH ×2 (10:19→21:27)
[2018-08-09] MEDS: VENLAFAXINE HCL 37.5 MG CAP.SR.24H PO SCH (10:19)
[2018-08-09] MEDS: METOPROLOL TARTRATE 25 MG TABLET PO SCH ×2 (10:19→21:28)
[2018-08-09] MEDS: CLONIDINE HCL 0.1 MG TABLET PO SCH ×3 (10:19→21:28)
[2018-08-09] MEDS: MAGNESIUM OXIDE 400 MG TABLET PO SCH ×2 (10:19→17:54)
--- NOTE | 2018-08-09 11:35 | PDOC PROGRESS REPORT ---
Subjective Progress Note for:: 08/09/18 Subjective:: The patient is a 47-year-old female with a past medical history of RI, hyperlipidemia, hypertension, asthma, COPD, seizure disorder, hypothyroidism, GERD, alcohol dependence, bipolar, depression who presented to the emergency department with report of alcohol withdrawal related seizure. Patient was seen on morning rounds. She was found resting in bed, comfortably, on room air. She is A&Ox4. She continues to be diaphoretic and tremulous. She reports she feels "okay" and is tolerating cardiac diet. She denies headache, dizziness, chest pain, shortness of breath, abdominal pain and nausea. She has no questions or concerns at this time. No concerns per nursing. Reason For Visit: ETOH WITHDRAWAL SERIZUE Physical Exam Vital Signs: Temp Pulse Resp BP Pulse Ox 98.6 F 74 16 164/89 H 93 08/09/18 07:16 08/09/18 08:09 08/09/18 08:09 08/09/18 07:16 08/09/18 08:09 Intake & Output 08/08/18 08/09/18 08/10/18 06:59 06:59 06:59 Intake Total 3080 1280 Output Total 600 3150 Balance 2480 -1870 Weight 103.9 kg 101.8 kg General appearance: PRESENT: no acute distress, disheveled, morbidly obese, well-developed, well-nourished Head exam: PRESENT: atraumatic, normocephalic Eye exam: PRESENT: conjunctiva pink, EOMI, PERRLA. ABSENT: scleral icterus Ear exam: PRESENT: normal external ear exam Mouth exam: PRESENT: moist, tongue midline Teeth exam: PRESENT: poor dentation Neck exam: ABSENT: carotid bruit, JVD, lymphadenopathy, thyromegaly Respiratory exam: PRESENT: rhonchi, symmetrical, unlabored. ABSENT: rales, wheezes Cardiovascular exam: PRESENT: RRR, +S1, +S2. ABSENT: diastolic murmur, rubs, systolic murmur Pulses: PRESENT: normal dorsalis pedis pul Vascular exam: PRESENT: normal capillary refill GI/Abdominal exam: PRESENT: normal bowel sounds, soft. ABSENT: distended, guarding, mass, organolmegaly, rebound, tenderness Rectal exam: PRESENT: deferred Extremities exam: PRESENT: full ROM. ABSENT: calf tenderness, clubbing, pedal edema Neurological exam: PRESENT: alert, awake, oriented to person, oriented to place, oriented to time, oriented to situation, CN II-XII grossly intact. ABSENT: motor sensory deficit Psychiatric exam: PRESENT: appropriate affect, normal mood. ABSENT: homicidal ideation, suicidal ideation Skin exam: PRESENT: dry, intact, warm. ABSENT: cyanosis, rash Results Laboratory Results: 08/08/18 04:12 08/08/18 04:12 08/06/18 08:48 Clean Catch Midstream Urine Culture - Final Escherichia Coli Assessment and Plan - Diagnosis (1) Alcohol withdrawal delirium Is this a current diagnosis for this admission?: Yes Plan: Improved today; A&Ox4, answers questions and follows directions. She is noted to be diaphoretic and tremulous. She has required Valium 40 mg p.o., Ativan 6 mg IV, and Haldol 5 mg IV over the last 24 hours for management of her withdrawal symptoms. Patient is admitted to [facility] on continuous cardiac telemetry. She is provided IV fluids. Scheduled p.o. Valium; will decrease dose today. As needed IV Ativan 2 mg every 2 hours for withdrawal/anxiety/agitation. IV hydralazine 5 mg every 6 hours for acute agitation. Banana bag nightly Fall/seizure/aspiration precautions. (2) Hypokalemia Is this a current diagnosis for this admission?: Yes Plan: Replete. We will continue to monitor with daily chemistries and replace as necessary. (3) Hypomagnesemia Is this a current diagnosis for this admission?: Yes Plan: Replete. (4) Tachycardia Is this a current diagnosis for this admission?: Yes Plan: Resolved. Secondary to #1, clonidine and benzodiazepine ordered. (5) Gastritis Is this a current diagnosis for this admission?: Yes Plan: Resolved; no episodes of emesis >48 hrs. Toelrating regular diet. Alcoholic gastritis most likely cause of vomiting. Continue IV fluids. Proton pump inhibitor. Antiemetics as needed. (6) ALEJA (acute kidney injury) Is this a current diagnosis for this admission?: Yes Plan: Resolved; Cr 1.85-> 1.30-> 0.94 FeNA 0.3%; pre-renal secondary to dehydration and hypotension. Avoid nephrotoxic medications as able. Continue IVF. Continue banana bag nightly. Avoid hypotension; dosing of Ativan is decreased. Continue monitor with daily chemistries. (7) Seizure Is this a current diagnosis for this admission?: Yes Plan: Secondary to EtOH abuse and withdrawal. Alcohol withdrawal management as above. Fall seizure aspiration precautions in place. (8) UTI (urinary tract infection) Qualifiers: Urinary tract infection type: acute cystitis Hematuria presence: with hematuria Qualified Code(s): N30.01 - Acute cystitis with hematuria Is this a current diagnosis for this admission?: Yes Plan: Urinalysis and urine culture confirmed E. coli UTI. She is on IV Rocephin; Day #3. Remove guzman today. - Time Time Spent with patient: 15-24 minutes Medications reviewed and adjusted accordingly: Yes Anticipated discharge: Home Within: within 48 hours
[2018-08-09] MEDS: NORMAL SALINE 1000 ML 1,000 ML with POTASSIUM CHLORIDE 20 MEQ, MAGNESIUM SULFATE 8 MEQ,... IV SCH ×5 (17:55)
[2018-08-09] MEDS: CEFTRIAXONE SODIUM 1,000 MG in DEXTROSE 5%-WATER 50 ML IV SCH (21:26)
[2018-08-10] MEDS: DIAZEPAM 5 MG TABLET PO SCH ×2 (00:40→05:37)
[2018-08-10 04:46] LABS: HEMATOCRIT 31.5 % (36.0-47.0); HEMOGLOBIN 10.8 g/dL (12.0-15.5); MEAN CORPUSCULAR HEMOGLOBIN 33.8 pg (27.0-33.4); MEAN CORPUSCULAR HGB CONC 34.3 g/dL (32.0-36.0); MEAN CORPUSCULAR VOLUME 99 fl (80-97); PLATELET COUNT 162 10^3/uL (150-450); RED BLOOD COUNT 3.19 10^6/uL (3.72-5.28); RED CELL DISTRIBUTION WIDTH 14.5 % (11.5-14.0); WHITE BLOOD COUNT 7.3 10^3/uL (4.0-10.5)
[2018-08-10 05:12] LABS: ANION GAP 7 (5-19); BLOOD UREA NITROGEN 13 mg/dL (7-20); CALCIUM 9.3 mg/dL (8.4-10.2); CARBON DIOXIDE 25 mmol/L (22-30); CHLORIDE 105 mmol/L (98-107); GLUCOSE 101 mg/dL (75-110); POTASSIUM 4.5 mmol/L (3.6-5.0); SODIUM 136.7 mmol/L (137-145)
[2018-08-10] MEDS: HEPARIN SOD (PORCINE) 5,000 UNIT/ML 1 ML SYRINGE SUBCUT SCH (05:36)
[2018-08-10] MEDS: CLONIDINE HCL 0.1 MG TABLET PO SCH (05:37)
[2018-08-10] MEDS: LEVOTHYROXINE SODIUM 0.088 MG TABLET PO SCH (05:38)
[2018-08-10] MEDS: IPRATROPIUM/ALBUTEROL 0.5-2.5 MG/3 ML AMPUL NEB SCH (08:17)
[2018-08-10] MEDS: METOPROLOL TARTRATE 25 MG TABLET PO SCH (10:13)
[2018-08-10] MEDS: VENLAFAXINE HCL 37.5 MG CAP.SR.24H PO SCH (10:13)
[2018-08-10] MEDS: PANTOPRAZOLE SODIUM 40 MG TABLET.DR PO SCH (10:13)
[2018-08-10] MEDS: MAGNESIUM OXIDE 400 MG TABLET PO SCH (10:13)
[2018-08-10] MEDS: POTASSIUM CHLORIDE 20 MEQ PACKET PO SCH (10:14)
[2018-08-10 11:42] VITALS: BP 148/98
[2018-08-10] MEDS ORDERED: DIAZEPAM 2 MG TABLET PO SCH (12:00)
--- NOTE | 2018-08-10 17:10 | PDOC DISCHARGE SUMMARY ---
General - Admit/Disc Date/PCP Admission Date/Primary Care Provider: 08/05/18 00:41 BERNIE SAVAGE MD Discharge Date: 08/10/18 - Discharge Diagnosis (1) Alcohol withdrawal delirium Is this a current diagnosis for this admission?: Yes Summary: Resolved; A&Ox4, answers questions and follows directions. She is independently ambulatory around the floor. She has required Valium 20 mg p.o. only (5 mg every 6 hours) over the last 24 hours for management of her withdrawal symptoms. No PRN Ativan or Haldol for management of symptoms. Patient was admitted to [facility] on continuous cardiac telemetry. She was provided IV fluids and nightly banana bag. She was placed on scheduled scheduled p.o. Valium; with as needed IV Ativan 2 mg every 2 hours for withdrawal/anxiety/agitation and IV Haldol for breakthrough agitation. Fall/seizure/aspiration precautions were placed. The patient's symptoms expectedly declined. On day of discharge, she is in stable condition, has not required any PRN medications in the last 24 hours. She tells me that she has been in contact with the [facility] and they have a bed available for her if she can arrive today. Nursing confirms that her ride is already on the way to pick her up and take her to [place]. She is instructed to follow-up with the [facility] as indicated. She is advised follow-up with her primary care provider within 1 week of discharge. She is instructed to take her medications as prescribed. She is encouraged to return to the emergency department as needed for any concerning symptoms. (2) Hypokalemia Is this a current diagnosis for this admission?: Yes Summary: Replete. (3) Hypomagnesemia Is this a current diagnosis for this admission?: Yes Summary: Replete. (4) Tachycardia Is this a current diagnosis for this admission?: Yes Summary: Resolved; secondary to #1. (5) Gastritis Is this a current diagnosis for this admission?: Yes Summary: Resolved; no episodes of emesis in greater than 72 hours. She is tolerating regular diet. Likely secondary to alcohol gastritis. She is provided IV fluids, daily Protonix, and antiemetics as needed. (6) ALEJA (acute kidney injury) Is this a current diagnosis for this admission?: Yes Summary: Resolved; Cr 1.85-> 1.30-> 0.94 FeNA 0.3%; pre-renal secondary to dehydration and hypotension. Patient was provided IV fluids and banana bag nightly. PRN medications were adjusted to ensure the patient did not experience episodes of hypotension. Encouraged p.o. fluids. (7) Seizure Is this a current diagnosis for this admission?: Yes Summary: Secondary to EtOH abuse and withdrawal. Alcohol withdrawal management as above. (8) UTI (urinary tract infection) Is this a current diagnosis for this admission?: Yes Summary: Urinalysis and urine culture confirmed E. coli UTI. Patient completed 3-day course of IV Rocephin. - Additional Information Resuscitation Status: Full Code Discharge Diet: Cardiac Discharge Activity: Activity As Tolerated, Balance Activity w/Rest, Slowly Increase Activity Prescriptions: Albuterol Sulfate [Proair Hfa Inhalation Aerosol 8.5 gm Mdi] 2 puff IH Q4 PRN #1 mdi PRN Reason: Albuterol Sulfate [Proair HFA Inhalation Aerosol 8.5 gm MDI] 2 puff IH Q4HP PRN #1 [email or web address] PRN Reason: Shortness Of Breath Diazepam [Valium 2 mg Tablet] 2 mg PO Q6HP PRN #8 tablet PRN Reason: anxiety/withdrawal symptoms Folic Acid [Folvite 1 mg Tablet] 1 mg PO DAILY #90 tablet Mvi, Adult No.1 with Vit K [M.v.i.-12 Inj (Adult) 10 ml Vial] 10 ml IV QPM #60 vial Ondansetron HCl [Zofran 4 mg Tablet] 1 - 2 tab PO Q4H PRN #20 tablet PRN Reason: Thiamine HCl [Thiamine 100 mg Tablet] 100 mg PO DAILY #30 tablet Home Medications: Clonidine HCl [Catapres 0.1 mg Tablet] 0.1 mg PO BID 08/05/18 Hydrochlorothiazide [Hydrodiuril 25 mg Tablet] 25 mg PO DAILY 08/05/18 Levothyroxine Sodium 88 mcg PO Q6AM 08/05/18 Lisinopril [Prinivil 10 mg Tablet] 10 mg PO DAILY 08/05/18 Lurasidone HCl [Latuda] 20 mg PO DAILY 08/05/18 Magnesium Oxide [Mag-Ox 400 mg Tablet] 400 mg PO BID 08/05/18 Metoprolol Tartrate [Lopressor 25 mg Tablet] 25 mg PO BID 08/05/18 Venlafaxine HCl ER [Effexor Xr 37.5 mg Cap.sr] 37.5 mg PO DAILY 08/05/18 Acetaminophen [Tylenol 325 mg Tablet] 650 mg PO Q4HP PRN tablet 08/10/18 Albuterol Sulfate [Proair HFA Inhalation Aerosol 8.5 gm MDI] 2 puff IH Q4HP PRN #1 hfa.aer.ad 08/10/18 Albuterol Sulfate [Proair Hfa Inhalation Aerosol 8.5 gm Mdi] 2 puff IH Q4 PRN #1 mdi 08/10/18 Clonidine HCl [Catapres 0.1 mg Tablet] 0.1 mg PO Q8 tablet 08/10/18 Diazepam [Valium 2 mg Tablet] 2 mg PO Q6HP PRN #8 tablet 08/10/18 Folic Acid [Folvite 1 mg Tablet] 1 mg PO DAILY #90 tablet 08/10/18 Ibuprofen [Motrin 600 mg Tablet] 600 mg PO Q8HP PRN tablet 08/10/18 Lisinopril [Prinivil 10 mg Tablet] 10 mg PO DAILY tablet 08/10/18 Magnesium Oxide [Mag-Ox 400 mg Tablet] 400 mg PO BID tablet 08/10/18 Metoprolol Tartrate [Lopressor 25 mg Tablet] 25 mg PO Q12 tablet 08/10/18 Mvi, Adult No.1 with Vit K [M.v.i.-12 Inj (Adult) 10 ml Vial] 10 ml IV QPM #60 vial 08/10/18 Ondansetron HCl [Zofran 4 mg Tablet] 1 - 2 tab PO Q4H PRN #20 tablet 08/10/18 Thiamine HCl [Thiamine 100 mg Tablet] 100 mg PO DAILY #30 tablet 08/10/18 History of Present Illness History of Present Illness: Per H&P by Dr. Santos: FABIANA HEAD is a 47 year old female with a past medical history of severe alcoholism with alcohol withdrawal seizure, hypo-Tiffanie anemia, hypokalemia, depression and hypertension. She presents after a seizure 24 hours ago with severe tremor and tachycardia. Patient has intractable vomiting found to have hypomagnesemia hypokalemia and tachycardia. She started on thiamine, folate, benzodiazepine and referred to the hospitalist for admission. Patient is tremulous and delusional unable to provide history. Physical Exam Vital Signs: Temp Pulse Resp BP Pulse Ox 97.6 F 71 16 129/90 H 94 08/10/18 11:02 08/10/18 11:02 08/10/18 11:02 08/10/18 11:02 08/10/18 11:02 Intake & Output 08/09/18 08/10/18 08/11/18 06:59 06:59 06:59 Intake Total 2303 2370 Output Total 3150 5300 Balance -847 -2930 Weight 101.8 kg 102.4 kg General appearance: PRESENT: no acute distress, disheveled, obese, well- developed, well-nourished Head exam: PRESENT: atraumatic, normocephalic Eye exam: PRESENT: conjunctiva pink, EOMI, PERRLA. ABSENT: scleral icterus Ear exam: PRESENT: normal external ear exam Mouth exam: PRESENT: moist, tongue midline Teeth exam: PRESENT: poor dentation Neck exam: ABSENT: carotid bruit, JVD, lymphadenopathy, thyromegaly Respiratory exam: PRESENT: clear to auscultation thomas, symmetrical, unlabored. ABSENT: rales, rhonchi, wheezes Cardiovascular exam: PRESENT: RRR, +S1, +S2. ABSENT: diastolic murmur, rubs, systolic murmur Pulses: PRESENT: normal dorsalis pedis pul Vascular exam: PRESENT: normal capillary refill GI/Abdominal exam: PRESENT: normal bowel sounds, soft. ABSENT: distended, guarding, mass, organolmegaly, rebound, tenderness Rectal exam: PRESENT: deferred Extremities exam: PRESENT: full ROM. ABSENT: calf tenderness, clubbing, pedal edema Neurological exam: PRESENT: alert, awake, oriented to person, oriented to place, oriented to time, oriented to situation, CN II-XII grossly intact. ABSENT: motor sensory deficit Psychiatric exam: PRESENT: appropriate affect, normal mood. ABSENT: homicidal ideation, suicidal ideation Skin exam: PRESENT: dry, intact, warm. ABSENT: cyanosis, rash Results Laboratory Results: 08/10/18 04:00 08/10/18 04:00 08/10/18 08/10/18 04:00 04:00 WBC 7.3 RBC 3.19 L Hgb 10.8 L Hct 31.5 L MCV 99 H MCH 33.8 H MCHC 34.3 RDW 14.5 H Plt Count 162 Sodium 136.7 L Potassium 4.5 Chloride 105 Carbon Dioxide 25 Anion Gap 7 BUN 13 Creatinine 0.95 Est GFR ( Amer) > 60 Est GFR (Non-Af Amer) > 60 Glucose 101 Calcium 9.3 Qualifiers - * PATIENT BEING DISCHARGED WITH ANY OF THE FOLLOWING DIAGNOSIS: No Acute Heart Failure - Is this a Heart Failure Patient?: No Plan Discharge Plan: Patient is discharged to self-care in stable condition. She is advised to: Follow up at the [facility] today as arranged. Follow up with primary care provider within 1 week of discharge from the [id number]. Take medications as prescribed. Do NOT drink alcohol. Return to the emergency department as needed for concerning symptoms. Time Spent: Greater than 30 Minutes
== END 2018-08-10 12:37 | disposition home or self-care (01) | DRG 897 ==
LOC: ER 22:38 → EH 08-05 00:41 → 3S 08-05 09:31
PROVIDERS: ADMIT Internal Medicine; ATTEND Internal Medicine
DX: F10.231 Alcohol dependence with withdrawal delirium (principal); N17.9 Acute kidney failure, unspecified; N30.01 Acute cystitis with hematuria; I25.2 Old myocardial infarction; E78.5 Hyperlipidemia, unspecified; J44.9 Chronic obstructive pulmonary disease, unspecified; I10 Essential (primary) hypertension; G40.909 Epilepsy, unspecified, not intractable, without status epilepticus; E03.9 Hypothyroidism, unspecified; K21.9 Gastro-esophageal reflux disease without esophagitis; F31.9 Bipolar disorder, unspecified; E87.6 Hypokalemia; E83.42 Hypomagnesemia; Z78.1 Physical restraint status; K29.20 Alcoholic gastritis without bleeding
CPT/HCPCS: 36415; 80048; 80053; 81001; 82570; 83690; 83735; 84300; 85025; 85027; 87086; 87186; 93005; 93010; 94640; 96361; 96374; 96375; 96376; 99285; J0360; J0696; J1630; J1644; J2060; J2405; J3360; J3411; J3475; J3480; J3490; J7030; J7060; J7120; J7620; S0164

== ENCOUNTER 2018-08-19 10:27 | Inpatient (IN) | payer MEDICARE, MEDICAID ==
[2018-08-19] MEDS ORDERED: NORMAL SALINE 1000 ML 1,000 ML IV ONE ×2 (11:38→14:18)
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
[2018-08-19 11:56] LABS: ABSOLUTE BASOPHILS # (AUTO) 0.2 10^3/uL (0.0-0.2); ABSOLUTE EOSINOPHILS # (AUTO) 0.1 10^3/uL (0.0-0.6); ABSOLUTE LYMPHOCYTES (AUTO) 4.3 10^3/uL (0.5-4.7); ABSOLUTE MONOCYTES (AUTO) 0.7 10^3/uL (0.1-1.4); ABSOLUTE NEUT (AUTO) 4.5 10^3/uL (1.7-8.2); BASOPHILS % (AUTO) 1.9 % (0-2); EOSINOPHILS % (AUTO) 1.2 % (0-6); HEMATOCRIT 38.8 % (36.0-47.0); HEMOGLOBIN 13.1 g/dL (12.0-15.5); LYMPHOCYTES % (AUTO) 44.2 % (13-45); MEAN CORPUSCULAR HEMOGLOBIN 32.9 pg (27.0-33.4); MEAN CORPUSCULAR HGB CONC 33.7 g/dL (32.0-36.0); MEAN CORPUSCULAR VOLUME 98 fl (80-97); MONOCYTES % (AUTO) 7.1 % (3-13); PLATELET COUNT 391 10^3/uL (150-450); RED BLOOD COUNT 3.97 10^6/uL (3.72-5.28); RED CELL DISTRIBUTION WIDTH 14.8 % (11.5-14.0); SEGMENTED NEUTROPHILS % (AUTO) 45.6 % (42-78); TOTAL CELLS COUNTED % (AUTO) 100 %; WHITE BLOOD COUNT 9.8 10^3/uL (4.0-10.5)
[2018-08-19 12:04] LABS: ALANINE AMINOTRANSFERASE 85 U/L (9-52); ALBUMIN 3.7 g/dL (3.5-5.0); ALKALINE PHOSPHATASE 218 U/L (38-126); ANION GAP 15 (5-19); ASPARTATE AMINO TRANSFERASE 156 U/L (14-36); BILIRUBIN,DIRECT 0.7 mg/dL (0.0-0.4); BILIRUBIN,TOTAL 0.9 mg/dL (0.2-1.3); BLOOD UREA NITROGEN 6 mg/dL (7-20); CALCIUM 8.2 mg/dL (8.4-10.2); CARBON DIOXIDE 23 mmol/L (22-30); CHLORIDE 106 mmol/L (98-107); GLUCOSE 99 mg/dL (75-110); POTASSIUM 3.9 mmol/L (3.6-5.0); SODIUM 143.9 mmol/L (137-145); TOTAL PROTEIN 7.2 g/dL (6.3-8.2)
[2018-08-19 12:05] LABS: ACETAMINOPHEN < 10 ug/mL (10-30); SALICYLATE < 1.0 mg/dL (2.0-20.0)
--- NOTE | 2018-08-19 12:41 | RADIOLOGY REPORT (SQ) ---
EXAM DESCRIPTION: HAND RIGHT 3 VIEWS COMPLETED DATE/TIME: 08/19/2018 12:24 pm REASON FOR STUDY: trauma COMPARISON: None. EXAM PARAMETERS: NUMBER OF VIEWS: Three views. TECHNIQUE: AP, lateral and oblique radiographic images acquired of the right hand. LIMITATIONS: None. FINDINGS: MINERALIZATION: Normal. BONES: No acute fracture or dislocation. No worrisome bone lesions. JOINTS: No effusions. SOFT TISSUES: Diffuse dorsal hand soft tissue swelling. No radiopaque foreign body or soft tissue ga s. OTHER: No other significant finding. IMPRESSION: Diffuse dorsal soft tissue swelling, right hand. No radiopaque foreign body or acute fr acture TECHNICAL DOCUMENTATION: JOB ID: [id number] [employer]- All Rights Reserved Reading location - IP/workstation name: [email or web address]
[2018-08-19 12:45] LABS: ALCOHOL 367 mg/dL (NONE DETECTED)
[2018-08-19 12:54] LABS: APPEARANCE,URINE CLEAR; BILIRUBIN,URINE NEGATIVE (NEGATIVE); COLOR,URINE YELLOW; GLUCOSE, URINE NEGATIVE (NEGATIVE); KETONES,URINE NEGATIVE (NEGATIVE); LEUKOCYTE ESTERASE,URINE NEGATIVE (NEGATIVE); NITRITE,URINE NEGATIVE (NEGATIVE); PROTEIN,URINE 100 mg/dL (NEGATIVE); UROBILINOGEN,URINE NEGATIVE mg/dL (<2.0)
--- NOTE | 2018-08-19 13:05 | RADIOLOGY REPORT (SQ) ---
EXAM DESCRIPTION: CT HEAD WITHOUT COMPLETED DATE/TIME: 08/19/2018 12:56 pm REASON FOR STUDY: head injury COMPARISON: CT brain 07/21/2017, 05/26/2017, 03/27/2017, 06/05/2015 TECHNIQUE: Axial images acquired through the brain without intravenous contrast. Images reviewed wi th bone, brain and subdural windows. Additional sagittal and coronal reconstructions were generated. Images stored on PACS. All CT scanners at this facility use dose modulation, iterative reconstruction, and/or weight based d osing when appropriate to reduce radiation dose to as low as reasonably achievable (ALARA). [facility]: Dose Right [facility]: CareDose [facility]: Dose Right [facility]: Teradose 4D [facility]: [place] RADIATION DOSE: CT Rad equipment meets quality standard of care and radiation dose reduction techniq ues were employed. CTDIvol: 53.2 mGy. DLP: 1017 mGy-cm. mGy. LIMITATIONS: None. FINDINGS: VENTRICLES: Normal size and contour. CEREBRUM: No masses. No hemorrhage. No midline shift. No evidence for acute infarction. Normal gra y/white matter differentiation. No areas of low density in the white matter. CEREBELLUM: No masses. No hemorrhage. No alteration of density. No evidence for acute infarction. EXTRAAXIAL SPACES: No fluid collections. No masses. ORBITS AND GLOBE: No intra- or extraconal masses. Normal contour of globe without masses. CALVARIUM: No fracture. PARANASAL SINUSES: No fluid or mucosal thickening. SOFT TISSUES: No mass or hematoma. OTHER: No other significant finding. IMPRESSION: NORMAL BRAIN CT WITHOUT CONTRAST. EVIDENCE OF ACUTE STROKE: NO. COMMENT: Quality ID # [id number]: Final reports with documentation of one or more dose reduction techniques (e.g., Automated exposure control, adjustment of the mA and/or kV according to patient size, use of iterative reconstruction technique) TECHNICAL DOCUMENTATION: JOB ID: [id number] [employer]- All Rights Reserved Reading location - IP/workstation name: [email or web address]
[2018-08-19 13:18] LABS: URINE AMPHETAMINES SCREEN NEGATIVE; URINE BARBITURATES SCREEN NEGATIVE; URINE BENZODIAZEPINES SCREEN UNCONFIRMED POSITIVE; URINE COCAINE SCREEN NEGATIVE; URINE MARIJUANA (THC) SCREEN NEGATIVE; URINE METHADONE SCREEN NEGATIVE; URINE PHENCYCLIDINE SCREEN NEGATIVE
[2018-08-19] MEDS ORDERED: LORAZEPAM 1 MG TABLET (TAPER DOSING) PO SCH (16:00)
--- NOTE | 2018-08-19 16:08 | PSYCHOLOGICAL NOTE ---
Psych Note - Psych Note Date seen by psych provider: 08/19/18 Time seen by psych provider: 12:25 - attempt Psych Note: Reason for Consult: substance abuse and suicidal ideation Patient is a 47-year-old female that presents to the emergency department for chief complaint of suicidal ideation and alcohol abuse. Patient is currently under the influence and unable to engage in evaluation as she will not wake up. No medication recommendations at this time No medication recommendations at this time Impression\plan: Patient is recommended for IVC petition for overnight mental health observation. Patient is currently under the influence of alcohol and reports thoughts of suicide. Patient will be evaluated once sober. Dr. Motley was consulted and the care management this patient; attending physicians in agreement with recommendations and disposition.
--- NOTE | 2018-08-19 17:59 | EKG REPORT ---
SEVERITY:- BORDERLINE ECG - SINUS TACHYCARDIA BORDERLINE T ABNORMALITIES, INFERIOR LEADS : Confirmed by: Hudson Alegria 19-Aug-2018 17:58:18
[2018-08-19] MEDS ORDERED: LORAZEPAM INJ 2 MG/1 ML VIAL IV ONE (20:19)
--- NOTE | 2018-08-19 20:20 | ER Document Report ---
Doctor's Note Notes: 08/19/18 20:19 The nurses informing the patient's heart rate is 150. She cannot tell me when it started. The patient has been getting p.o. Ativan on a every 6 schedule, her last dose just after 4 PM today. She is not due for another dose for another hour and a half or more. I have ordered an EKG to see what the rhythm is, and 1 mg of Ativan IV, and stop the p.o. Ativan dosing for now. 08/19/18 20:51 EKG shows the patient is in atrial fibrillation with rapid ventricular rate of 154. Review of records shows that she also had A. fib with RVR on and alcoholism related admission on 06/04/2015. 08/19/18 22:26 The patient has converted back to a normal sinus rhythm at this time with a rate of 91.
[2018-08-19] MEDS ORDERED: DILTIAZEM HCL INJ 25 MG/5 ML VIAL IV ONE (20:41)
[2018-08-19] MEDS ORDERED: DILTIAZEM HCL/D5W 125 MG/125 ML RTUINJ IV PRN ×2 (20:42→20:57)
[2018-08-19] MEDS ORDERED: MAG HYDROX/AL HYDROX/SIMETH SUSP 30 ML UDCUP PO PRN (20:57)
[2018-08-19] MEDS ORDERED: METOPROLOL TARTRATE PF/INJ 5 MG/5 ML SDV IV ONE ×2 (21:07→21:35)
[2018-08-19 21:45] LABS: LIPASE 186.6 U/L (23-300); PHOSPHORUS 4.3 mg/dL (2.5-4.5)
[2018-08-19] MEDS: HEPARIN SOD (PORCINE) 5,000 UNIT/ML 1 ML SYRINGE SUBCUT SCH (21:55)
[2018-08-19] MEDS ORDERED: CLONIDINE 0.2 MG/24 HR PATCH.TDWK TD ONE (22:00)
[2018-08-19] MEDS ORDERED: DIAZEPAM 5 MG TABLET PO SCH (22:00)
[2018-08-19 23:11] LABS: INTERNATIONAL RATION (INR) 1.05; PROTHROMBIN TIME 13.7 SEC (11.4-15.4)
--- NOTE | 2018-08-19 23:39 | EKG REPORT ---
SEVERITY:- ABNORMAL ECG - SINUS RHYTHM PROBABLE INFERIOR INFARCT, AGE INDETERMINATE BORDERLINE PROLONGED QT INTERVAL : Confirmed by: Hudson Alegria 19-Aug-2018 23:38:35
--- NOTE | 2018-08-19 23:39 | EKG REPORT ---
SEVERITY:- ABNORMAL ECG - ATRIAL FIBRILLATION, V-RATE 109-188 REPOL ABNRM SUGGESTS ISCHEMIA, DIFFUSE LEADS BORDERLINE PROLONGED QT INTERVAL : Confirmed by: Hudson Alegria 19-Aug-2018 23:38:46
[2018-08-20] MEDS: LEVALBUTEROL HCL NEB 1.25 MG/3 ML AMPUL NEB SCH ×4 (00:38→23:34)
[2018-08-20] MEDS: LORAZEPAM INJ 2 MG/1 ML VIAL IV PRN ×3 (01:04→05:20)
--- NOTE | 2018-08-20 05:49 | PDOC H&P ---
History of Present Illness Admission Date/PCP: 08/19/18 21:16 BERNIE SAVAGE MD Patient complains of: Suicidal ideation, palpitations and alcohol withdrawal History of Present Illness: FABIANA HEAD is a 47 year old female with a past medical history of severe alcoholism with alcohol withdrawal seizures, hypomagnesemia, hypokalemia, depression and hypertension. She presents with acute intoxication and suicidal ideation prompting IVC papers however while in the emergency room she developed A. fib with RVR and is referred to the hospitalist for admission. Patient is tremulous and delirious. Patient admits she discontinued alcohol only because she ran out of money. 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, Hyperlipidema, Hypertension Denies: Atrial Fibrillation, Congestive Heart Failure, Heart Murmur Pulmonary Medical History: Reports: Asthma, Chronic Obstructive Pulmonary Disease (COPD) Denies: Bronchitis, Pneumonia, Respiratory Failure, Sleep Apnea, Tuberculosis Neurological Medical History: Reports: Seizures Endocrine Medical History: Reports: Hypothyroidism Renal/ Medical History: Denies: End Stage Renal Disease GI Medical History: Reports: Gastroesophageal Reflux Disease Denies: Hiatal Hernia Musculoskeltal Medical History: Denies: Arthritis Psychiatric Medical History: Reports: Alcohol Dependency, Bipolar Disorder, Depression Hematology: Denies: Anemia, Hemophilia, Heparin Induced Thrombocytopenia Past Surgical History Past Surgical History: Reports: Appendectomy, Cholecystectomy, Orthopedic Surgery - right knee, Tonsillectomy, Tubal Ligation Denies: Amputation, Section, Hysterectomy, Mastectomy Social History Information Source: Patient, [facility] Records Smoking Status: Current Every Day Smoker Frequency of Alcohol Use: Heavy Hx Recreational Drug Use: No Drugs: None Hx Prescription Drug Abuse: No - Advance Directive Resuscitation Status: Full Code Family History Family History: Malignancy Parental Family History Reviewed: Yes Children Family History Reviewed: Yes Sibling(s) Family History Reviewed.: Yes Medication/Allergy Home Medications: Clonidine HCl [Catapres 0.1 mg Tablet] 0.1 mg PO BID 08/05/18 Hydrochlorothiazide [Hydrodiuril 25 mg Tablet] 25 mg PO DAILY 08/05/18 Levothyroxine Sodium 88 mcg PO Q6AM 08/05/18 Lisinopril [Prinivil 10 mg Tablet] 10 mg PO DAILY 08/05/18 Lurasidone HCl [Latuda] 20 mg PO DAILY 08/05/18 Magnesium Oxide [Mag-Ox 400 mg Tablet] 400 mg PO BID 08/05/18 Metoprolol Tartrate [Lopressor 25 mg Tablet] 25 mg PO Q12 08/05/18 Venlafaxine HCl ER [Effexor Xr 37.5 mg Cap.sr] 37.5 mg PO DAILY 08/05/18 Albuterol Sulfate [Proair HFA Inhalation Aerosol 8.5 gm MDI] 2 puff IH Q4HP PRN #1 hfa.aer.ad 08/10/18 Diazepam [Valium 2 mg Tablet] 2 mg PO Q6HP PRN #8 tablet 08/10/18 Folic Acid [Folvite 1 mg Tablet] 1 mg PO DAILY #90 tablet 08/10/18 Thiamine HCl [Thiamine 100 mg Tablet] 100 mg PO DAILY #30 tablet 08/10/18 Ondansetron HCl [Zofran 4 mg Tablet] 4 mg PO DAILYP PRN 08/19/18 Allergies/Adverse Reactions: No Known Allergies Allergy (Verified 06/08/14 00:01) Review of Systems ROS unobtainable: Due to mental status Physical Exam Vital Signs: Temp Pulse Resp BP Pulse Ox 98.5 F 91 20 154/99 H 99 08/20/18 03:15 08/20/18 03:15 08/20/18 03:15 08/20/18 03:15 08/20/18 03:15 Intake & Output 08/18/18 08/19/18 08/20/18 11:59 11:59 11:59 Intake Total 2024 Balance 2024 Weight 99 kg General appearance: PRESENT: disheveled, morbidly obese. ABSENT: cooperative Head exam: PRESENT: atraumatic, normocephalic Eye exam: PRESENT: conjunctiva pink, EOMI, PERRLA. ABSENT: scleral icterus Ear exam: PRESENT: normal external ear exam Mouth exam: PRESENT: moist, tongue midline Neck exam: ABSENT: carotid bruit, JVD, lymphadenopathy, thyromegaly Respiratory exam: PRESENT: accessory muscle use, clear to auscultation thomas, prolonged expiratory phas, retraction, symmetrical, tachypnea Cardiovascular exam: PRESENT: irregular rhythm, tachycardia. ABSENT: diastolic murmur, rubs, systolic murmur Pulses: PRESENT: normal dorsalis pedis pul Vascular exam: PRESENT: normal capillary refill GI/Abdominal exam: PRESENT: ascites, normal bowel sounds, soft. ABSENT: guarding, mass, organolmegaly, rebound, tenderness Rectal exam: PRESENT: deferred Extremities exam: PRESENT: full ROM. ABSENT: calf tenderness, clubbing, pedal edema Neurological exam: PRESENT: alert, altered, awake, oriented to person, CN II-XII grossly intact Psychiatric exam: PRESENT: agitated Skin exam: PRESENT: dry, intact, warm. ABSENT: cyanosis, rash Results Laboratory Results: 08/19/18 10:41 08/19/18 10:41 08/19/18 08/19/18 08/19/18 10:41 10:41 10:41 WBC 9.8 RBC 3.97 Hgb 13.1 Hct 38.8 MCV 98 H MCH 32.9 MCHC 33.7 RDW 14.8 H Plt Count 391 Seg Neutrophils % 45.6 Lymphocytes % 44.2 Monocytes % 7.1 Eosinophils % 1.2 Basophils % 1.9 Absolute Neutrophils 4.5 Absolute Lymphocytes 4.3 Absolute Monocytes 0.7 Absolute Eosinophils 0.1 Absolute Basophils 0.2 Sodium 143.9 Potassium 3.9 Chloride 106 Carbon Dioxide 23 Anion Gap 15 BUN 6 L Creatinine 0.80 Est GFR ( Amer) > 60 Est GFR (Non-Af Amer) > 60 Glucose 99 Calcium 8.2 L Phosphorus 4.3 Magnesium 1.5 L Total Bilirubin 0.9 AST 156 H ALT 85 H Alkaline Phosphatase 218 H Total Protein 7.2 Albumin 3.7 Lipase 186.6 Urine Color Urine Appearance Urine pH Ur Specific [place] Urine Protein Urine Glucose (UA) Urine Ketones Urine Blood Urine Nitrite Ur Leukocyte Esterase Urine WBC (Auto) Urine RBC (Auto) 08/19/18 11:20 WBC RBC Hgb Hct MCV MCH MCHC RDW Plt Count Seg Neutrophils % Lymphocytes % Monocytes % Eosinophils % Basophils % Absolute Neutrophils Absolute Lymphocytes Absolute Monocytes Absolute Eosinophils Absolute Basophils Sodium Potassium Chloride Carbon Dioxide Anion Gap BUN Creatinine Est GFR ( Amer) Est GFR (Non-Af Amer) Glucose Calcium Phosphorus Magnesium Total Bilirubin AST ALT Alkaline Phosphatase Total Protein Albumin Lipase Urine Color YELLOW Urine Appearance CLEAR Urine pH 6.0 Ur Specific [place] 1.010 Urine Protein 100 H Urine Glucose (UA) NEGATIVE Urine Ketones NEGATIVE Urine Blood NEGATIVE Urine Nitrite NEGATIVE Ur Leukocyte Esterase NEGATIVE Urine WBC (Auto) 2 Urine RBC (Auto) 0 Impressions: Hand X-Ray 08/19/18 11:37 IMPRESSION: Diffuse dorsal soft tissue swelling, right hand. No radiopaque foreign body or acute fracture Head CT 08/19/18 11:43 IMPRESSION: NORMAL BRAIN CT WITHOUT CONTRAST. EVIDENCE OF ACUTE STROKE: NO. Assessment and Plan - Diagnosis (1) Alcohol withdrawal Qualifiers: Complication of substance-induced condition: with unspecified complication Qualified Code(s): F10.239 - Alcohol dependence with withdrawal, unspecified Is this a current diagnosis for this admission?: Yes Plan: Telemetry, IV Valium with PRN Ativan, thiamine. (2) Atrial fibrillation with RVR Is this a current diagnosis for this admission?: Yes Plan: Resume transdermal clonidine, IV Cardizem, follow-up chemistry (3) Suicidal ideation Is this a current diagnosis for this admission?: Yes Plan: Follow-up mental health consult (4) Gastritis Is this a current diagnosis for this admission?: Yes Plan: Secondary to alcoholism, proton pump inhibitor ordered - Time Time Spent with patient: 25-34 minutes - Inpatient Certification Medical Necessity: Need Close Monitoring Due to Risk of Patient Decompensation
[2018-08-20] MEDS: DIAZEPAM INJ 10 MG/2 ML DISP.SYRIN IV SCH ×3 (06:00→22:03)
[2018-08-20] MEDS: HEPARIN SOD (PORCINE) 5,000 UNIT/ML 1 ML SYRINGE SUBCUT SCH ×3 (06:00→22:03)
[2018-08-20 06:08] LABS: ABSOLUTE BASOPHILS # (AUTO) 0.1 10^3/uL (0.0-0.2); ABSOLUTE EOSINOPHILS # (AUTO) 0.1 10^3/uL (0.0-0.6); ABSOLUTE LYMPHOCYTES (AUTO) 1.9 10^3/uL (0.5-4.7); ABSOLUTE MONOCYTES (AUTO) 0.6 10^3/uL (0.1-1.4); BASOPHILS % (AUTO) 1.3 % (0-2); EOSINOPHILS % (AUTO) 1.4 % (0-6); HEMOGLOBIN 12.3 g/dL (12.0-15.5); LYMPHOCYTES % (AUTO) 21.9 % (13-45); MEAN CORPUSCULAR HEMOGLOBIN 33.5 pg (27.0-33.4); MEAN CORPUSCULAR HGB CONC 34.3 g/dL (32.0-36.0); MEAN CORPUSCULAR VOLUME 98 fl (80-97); MONOCYTES % (AUTO) 6.6 % (3-13); PLATELET COUNT 198 10^3/uL (150-450); RED BLOOD COUNT 3.68 10^6/uL (3.72-5.28); RED CELL DISTRIBUTION WIDTH 14.5 % (11.5-14.0); SEGMENTED NEUTROPHILS % (AUTO) 68.8 % (42-78); TOTAL CELLS COUNTED % (AUTO) 100 %; WHITE BLOOD COUNT 8.7 10^3/uL (4.0-10.5)
[2018-08-20 06:31] LABS: ANION GAP 9 (5-19); BLOOD UREA NITROGEN 6 mg/dL (7-20); CALCIUM 8.2 mg/dL (8.4-10.2); CARBON DIOXIDE 26 mmol/L (22-30); CHLORIDE 105 mmol/L (98-107); GLUCOSE 98 mg/dL (75-110); SODIUM 140.2 mmol/L (137-145)
[2018-08-20] MEDS: FAMOTIDINE 20 MG TABLET PO SCH ×2 (10:07→22:03)
[2018-08-20] MEDS: MULTIVITAMIN TABLET PO SCH (10:07)
[2018-08-20] MEDS: FOLIC ACID 1 MG TABLET PO SCH (10:07)
[2018-08-20] MEDS: THIAMINE HCL 100 MG TABLET PO SCH (10:14)
[2018-08-20] MEDS ORDERED: ALBUTEROL SULFATE HFA (90 MCG/PUFF) 200 PUFF/8.5 GM MDI IH PRN (10:15)
--- NOTE | 2018-08-20 10:20 | Progress Note Acknowledgement ---
Progress Note Acknowledgement Progess Note Acknowledgement: I, the undersigned member of the medical staff with appropriate privileges and with supervisory authority over Keysha Hull, a [facility] practice allied health professional, acknowledge that I have reviewed the progress notes entered on this patient, and in my professional judgment believe that the assessment made and/or any care evidenced was appropriate
[2018-08-20] MEDS: CLONIDINE HCL 0.1 MG TABLET PO SCH ×2 (12:16→22:03)
[2018-08-20] MEDS: LISINOPRIL 10 MG TABLET PO SCH (12:16)
[2018-08-20] MEDS: HYDROCHLOROTHIAZIDE 25 MG TABLET PO SCH (12:16)
[2018-08-20] MEDS: METOPROLOL TARTRATE 25 MG TABLET PO SCH ×2 (12:16→22:03)
[2018-08-20] MEDS: VENLAFAXINE HCL 37.5 MG CAP.SR.24H PO SCH (12:22)
[2018-08-20] MEDS: LEVOTHYROXINE SODIUM 0.088 MG TABLET PO SCH (12:22)
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
[2018-08-20] MEDS: MAGNESIUM OXIDE 400 MG TABLET PO SCH (17:35)
[2018-08-21 04:14] VITALS: BP 123/70
[2018-08-21] MEDS: HEPARIN SOD (PORCINE) 5,000 UNIT/ML 1 ML SYRINGE SUBCUT SCH (05:25)
[2018-08-21] MEDS: LEVOTHYROXINE SODIUM 0.088 MG TABLET PO SCH (05:25)
[2018-08-21] MEDS: DIAZEPAM INJ 10 MG/2 ML DISP.SYRIN IV SCH (05:25)
[2018-08-21 06:37] LABS: ANION GAP 10 (5-19); BLOOD UREA NITROGEN 8 mg/dL (7-20); CALCIUM 8.4 mg/dL (8.4-10.2); CARBON DIOXIDE 25 mmol/L (22-30); CHLORIDE 102 mmol/L (98-107); GLUCOSE 102 mg/dL (75-110); POTASSIUM 3.2 mmol/L (3.6-5.0); SODIUM 136.6 mmol/L (137-145)
[2018-08-21] MEDS ORDERED: POTASSIUM CHLORIDE 10 MEQ CAPSULE.ER PO ONE (08:00)
[2018-08-21] MEDS: LEVALBUTEROL HCL NEB 1.25 MG/3 ML AMPUL NEB SCH (08:33)
[2018-08-21] MEDS: THIAMINE HCL 100 MG TABLET PO SCH (09:49)
[2018-08-21] MEDS: VENLAFAXINE HCL 37.5 MG CAP.SR.24H PO SCH (09:49)
[2018-08-21] MEDS: MAGNESIUM OXIDE 400 MG TABLET PO SCH (09:49)
[2018-08-21] MEDS: HYDROCHLOROTHIAZIDE 25 MG TABLET PO SCH (09:49)
[2018-08-21] MEDS: FOLIC ACID 1 MG TABLET PO SCH (09:50)
[2018-08-21] MEDS: CLONIDINE HCL 0.1 MG TABLET PO SCH (09:50)
[2018-08-21] MEDS: LISINOPRIL 10 MG TABLET PO SCH (09:50)
[2018-08-21] MEDS: METOPROLOL TARTRATE 25 MG TABLET PO SCH (09:50)
[2018-08-21] MEDS: FAMOTIDINE 20 MG TABLET PO SCH (09:50)
[2018-08-21] MEDS: MULTIVITAMIN TABLET PO SCH (09:50)
[2018-08-21] MEDS ORDERED: DIAZEPAM 5 MG TABLET PO SCH (12:00)
--- NOTE | 2018-08-25 13:54 | Left Against Medical Advice ---
Against Medical Advice Admission Date/Time: 08/19/18 21:16 Primary Care Provider: BERNIE SAVAGE MD Date of Patient Emigration: 08/21/18 - Diagnosis: (1) Alcohol withdrawal Is this a current diagnosis for this admission?: Yes (2) Alcohol intoxication Is this a current diagnosis for this admission?: Yes (3) Atrial fibrillation with RVR Is this a current diagnosis for this admission?: Yes (4) Suicidal ideation Is this a current diagnosis for this admission?: Yes (5) COPD (chronic obstructive pulmonary disease) Is this a current diagnosis for this admission?: Yes - Summary: Summary: Please see Admission and Progress Notes as well. FABIANA HEAD is a 47 F, who LEFT AGAINST MEDICAL ADVICE. The Patient was admitted on 08/19/18 21:16 for acute alcohol intoxication. Patient is known to the hospitalist service to experience alcohol withdrawal related seizures. She was placed on seizure precautions and provided benzodiazepines for management of withdrawal symptoms. Mental Health services had placed the patient on IVC status due to statements made upon arrival to the ED while acutely intoxicated. She was re-evaluated on 08/21 and IVC was subsequently rescinded. Shortly after the patient announced her intention to leave against medical advice. Both nursing staff and myself educated the patient on dangers of alcohol withdrawal and seizures. Despite this, the patient proceeded to sign herself out and left AGAINST MEDICAL ADVICE.
== END 2018-08-21 10:39 | disposition left against medical advice (07) | DRG 894 ==
LOC: ER 10:27 → EH 21:16 → 3S 08-20 01:29
PROVIDERS: ADMIT Internal Medicine; ATTEND Internal Medicine
DX: F10.239 Alcohol dependence with withdrawal, unspecified (principal); R45.851 Suicidal ideations; I48.2 Chronic atrial fibrillation; Y90.9 Presence of alcohol in blood, level not specified; K29.20 Alcoholic gastritis without bleeding; F10.229 Alcohol dependence with intoxication, unspecified; I25.2 Old myocardial infarction; I10 Essential (primary) hypertension; J44.9 Chronic obstructive pulmonary disease, unspecified; E03.9 Hypothyroidism, unspecified; F17.200 Nicotine dependence, unspecified, uncomplicated; K21.9 Gastro-esophageal reflux disease without esophagitis; F31.9 Bipolar disorder, unspecified; Z90.49 Acquired absence of other specified parts of digestive tract; Z79.899 Other long term (current) drug therapy
CPT/HCPCS: 36415; 70450; 80048; 80053; 80307; 81001; 83690; 83735; 84100; 85025; 85610; 93005; 93010; 94640; 96361; 96374; 96375; 96376; 99285; J1644; J2060; J3360; J3490; J7030

== ENCOUNTER 2018-08-29 19:04 | Inpatient (IN) | payer MEDICARE, MEDICAID ==
[2018-08-29] MEDS ORDERED: THIAMINE HCL 100 MG, FOLIC ACID 1 MG in NORMAL SALINE 250 ML IV ONE (19:39)
[2018-08-29] MEDS ORDERED: LORAZEPAM INJ 2 MG/1 ML VIAL IV ONE (19:39)
--- NOTE | 2018-08-29 19:44 | ER Document Report ---
ED General - General Chief Complaint: Nausea/Vomiting Stated Complaint: SHORT OF BREATH, NAUSEA, VOMITTING Time Seen by Provider: 08/29/18 19:22 Primary Care Provider: BERNIE SAVAGE MD [Primary Care Provider] - Follow up as needed TRAVEL OUTSIDE OF THE [place] IN LAST 30 DAYS: No - HPI Notes: Patient is a 47-year-old female that presents to the emergency department for chief complaint of nausea and vomiting. Patient reports that she drinks 1/5 of vodka daily. Yesterday she had about 1.5 fifths. Her last drink was 2 shots of vodka at around 7 AM this morning. Patient states she began feeling nauseated and has had multiple episodes of emesis which is caused her to not drink since this morning. Patient does report history of alcohol withdrawal seizures in the past. She states she is now feeling very shaky and anxious. She did receive IV fluids and Zofran by EMS and states her nausea has improved. She denies any abdominal pain to me. She is complaining of feeling short of breath since yesterday. She is her albuterol inhaler one time yesterday evening and EMS gave her an albuterol treatment prior to arrival. She states that neither treatment helped her shortness of breath. She denies any associated chest pain, palpitations or coughing. She denies re cent illness including fevers chills and urinary symptoms. Past Medical History: Asthma, hypertension Past Surgical History: Traumatic right lower leg fracture repair, tubal ligation Social History: Daily alcohol consumption. Denies tobacco and drug use Family History: Reviewed and noncontributory for presenting illness Allergies: Reviewed, see documented allergy list. REVIEW OF SYSTEMS: CONSTITUTIONAL : No fever No chills No diaphoresis No recent illness EENT: No vision changes No congestion No sore throat CARDIOVASCULAR: No chest pain No palpitations RESPIRATORY: shortness of breath No cough difficulty breathing GASTROINTESTINAL: No abdominal pain No nausea No vomiting No diarrhea GENITOURINARY: No dysuria No hematuria No difficulty urinating MUSCULOSKELETAL: No back pain No leg pain No arm pain SKIN: No rashes No lesions LYMPHATIC: No swollen, enlarged glands. NEUROLOGICAL: No lightheadedness No headache No weakness No paresthesias PSYCHIATRIC: No anxiety No depression PHYSICAL EXAMINATION: Vital signs reviewed, nursing noted reviewed. GENERAL: Ill-appearing, obese and in mild acute distress. HEAD: Atraumatic, normocephalic. EYES: Eyes appear normal, extraocular movements intact, sclera anicteric, conjunctiva are normal. ENT: nares patent, oropharynx clear without exudates. Moist mucous membranes. NECK: Normal range of motion, supple without lymphadenopathy LUNGS: Tachypneic, breath sounds diminished to auscultation bilaterally and equal. No wheezes rales or rhonchi. HEART: Tachycardic rate and regular rhythm without murmurs ABDOMEN: Soft, nontender, normoactive bowel sounds. No rebound, guarding, or rigidity. No masses appreciated. EXTREMITIES: Nontender, good range of motion, no pitting or edema. NEUROLOGICAL: Tremulous, no focal neurological deficits. Moves all extremities spontaneously Motor and sensory grossly intact on exam. PSYCH: Anxious mood, normal affect. 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 Denies: Hx Hiatal Hernia, Hx Pancreatitis, Hx Ulcer Musculoskeletal Medical History: Denies Hx Arthritis Psychiatric Medical History: Reports: Hx Bipolar Disorder, Hx Depression Denies: Hx Schizophrenia Traumatic Medical History: Reports: Hx Fractures - R. leg. Pt. has a steel debi. Past Surgical History: Reports: Hx Appendectomy, Hx Cholecystectomy, Hx Orthopedic Surgery - right knee, Hx Tonsillectomy, Hx Tubal Ligation. Denies: Hx Bowel Surgery, Hx Section, Hx Hysterectomy, Hx Mastectomy - Immunizations Hx Diphtheria, Pertussis, Tetanus Vaccination: No Hx Pneumococcal Vaccination: 05/05/11 Physical Exam - Vital signs Vitals: Temp Pulse Resp BP 97.8 F 131 H 30 H 179/128 H 08/29/18 19:04 08/29/18 19:04 08/29/18 19:04 08/29/18 19:04 Course - Re-evaluation Re-evalutation: 08/29/18 19:44 Vitals reviewed. Nursing notes reviewed. Patient is hypertensive and tachycardic as well as tremulous and appears to be in acute alcohol withdrawal. She was given IV fluids, thiamine, folate, and Ativan for her alcohol withdrawal. She has a history of alcohol withdrawal seizures and seizure precautions have been started. Patient placed on telemetry monitoring. She is not actively vomiting and is requesting ice chips currently. 08/29/18 20:55 Patient reevaluated. After fluids and Ativan her tachycardia has improved. She is still tremulous. She is not having any hallucinations and has not had any seizure activity. Her alcohol level is negative. She does have elevated alk phos which was previously shown. She has no severe electrolyte derangements. Patient would like to detox and be sober. She will be admitted to the hospital for her acute alcohol withdrawal. Laboratory 08/29/18 08/29/18 08/29/18 19:24 19:24 19:24 WBC 9.5 RBC 3.98 Hgb 13.6 Hct 38.9 MCV 98 H MCH 34.2 H MCHC 35.0 RDW 15.4 H Plt Count 220 Seg Neutrophils % 72.8 Lymphocytes % 15.7 Monocytes % 10.5 Eosinophils % 0.1 Basophils % 0.9 Absolute Neutrophils 6.9 Absolute Lymphocytes 1.5 Absolute Monocytes 1.0 Absolute Eosinophils 0.0 Absolute Basophils 0.1 Sodium 139.2 Potassium 3.1 L Chloride 99 Carbon Dioxide 26 Anion Gap 14 BUN 9 Creatinine 1.01 Est GFR ( Amer) > 60 Est GFR (Non-Af Amer) 59 L Glucose 117 H Calcium 8.5 Total Bilirubin 1.1 Direct Bilirubin 0.5 H Neonat Total Bilirubin Not Reportable Neonat Direct Bilirubin Not Reportable Neonat Indirect Bili Not Reportable AST 92 H ALT 50 Alkaline Phosphatase 200 H Troponin I 0.013 Total Protein 8.5 H Albumin 4.2 Lipase 172.3 Serum Alcohol < 10 Chest X-Ray 08/29/18 19:39 IMPRESSION: No evidence of acute cardiopulmonary disease. - Vital Signs Vital signs: Temp Pulse Resp BP Pulse Ox 97.8 F 131 H 19 171/111 H 96 08/29/18 19:04 08/29/18 19:04 08/29/18 20:27 08/29/18 20:27 08/29/18 20:27 - Laboratory Result Diagrams: 08/29/18 19:24 08/29/18 19:24 Laboratory results interpreted by me: 08/29/18 08/29/18 19:24 19:24 MCV 98 H MCH 34.2 H RDW 15.4 H Potassium 3.1 L Est GFR (Non-Af Amer) 59 L Glucose 117 H Direct Bilirubin 0.5 H AST 92 H Alkaline Phosphatase 200 H Total Protein 8.5 H - EKG Interpretation by Me Additional EKG results interpreted by me: 08/29/18 20:20 Interpreted by myself 2008: Normal sinus tachycardia, rate 121, normal axis, no ectopy, no STEMI Critical Care Note - Critical Care Note Total time excluding time spent on procedures (mins): 35 Comments: Critical care time 35 exclusive from separate billable procedures for a patient requiring complex medical decision making, and high potential for clinical deterioration. Time spent obtaining history from patient or surrogate, discussions with consultants, development of treatment plan with patient or surrogate, evaluation of patient's response to treatment, examination of patient, ordering and performing treatments and interventions, ordering and review of laboratory studies, re-evaluation of patient's condition, ordering and review of radiographic studies and review of old charts Discharge - Discharge Clinical Impression: Alcohol withdrawal Qualifiers: Complication of substance-induced condition: uncomplicated Qualified Code(s): F10.230 - Alcohol dependence with withdrawal, uncomplicated Nausea and vomiting Qualifiers: Vomiting type: unspecified Vomiting Intractability: non-intractable Qualified Code(s): R11.2 - Nausea with vomiting, unspecified Condition: Good Disposition: ADMITTED INPATIENT Admitting Provider: Kendrick (Hospitalist) Unit Admitted: IMCU Referrals: BERNIE SAVAGE MD [Primary Care Provider] - Follow up as needed
[2018-08-29] MEDS ORDERED: THIAMINE HCL INJ 200 MG/2 ML VIAL ONE (19:56)
[2018-08-29] MEDS ORDERED: FOLIC ACID INJ 5 MG/1 ML 10 ML VIAL ONE (19:57)
[2018-08-29 20:06] LABS: ALANINE AMINOTRANSFERASE 50 U/L (9-52); ALBUMIN 4.2 g/dL (3.5-5.0); ALCOHOL < 10 mg/dL (NONE DETECTED); ALKALINE PHOSPHATASE 200 U/L (38-126); ANION GAP 14 (5-19); ASPARTATE AMINO TRANSFERASE 92 U/L (14-36); BILIRUBIN,DIRECT 0.5 mg/dL (0.0-0.4); BILIRUBIN,TOTAL 1.1 mg/dL (0.2-1.3); BLOOD UREA NITROGEN 9 mg/dL (7-20); CALCIUM 8.5 mg/dL (8.4-10.2); CARBON DIOXIDE 26 mmol/L (22-30); CHLORIDE 99 mmol/L (98-107); GLUCOSE 117 mg/dL (75-110); LIPASE 172.3 U/L (23-300); POTASSIUM 3.1 mmol/L (3.6-5.0); SODIUM 139.2 mmol/L (137-145); TOTAL PROTEIN 8.5 g/dL (6.3-8.2)
[2018-08-29 20:08] LABS: ABSOLUTE BASOPHILS # (AUTO) 0.1 10^3/uL (0.0-0.2); ABSOLUTE LYMPHOCYTES (AUTO) 1.5 10^3/uL (0.5-4.7); ABSOLUTE NEUT (AUTO) 6.9 10^3/uL (1.7-8.2); BASOPHILS % (AUTO) 0.9 % (0-2); EOSINOPHILS % (AUTO) 0.1 % (0-6); HEMATOCRIT 38.9 % (36.0-47.0); HEMOGLOBIN 13.6 g/dL (12.0-15.5); LYMPHOCYTES % (AUTO) 15.7 % (13-45); MEAN CORPUSCULAR HEMOGLOBIN 34.2 pg (27.0-33.4); MEAN CORPUSCULAR VOLUME 98 fl (80-97); MONOCYTES % (AUTO) 10.5 % (3-13); PLATELET COUNT 220 10^3/uL (150-450); RED BLOOD COUNT 3.98 10^6/uL (3.72-5.28); RED CELL DISTRIBUTION WIDTH 15.4 % (11.5-14.0); SEGMENTED NEUTROPHILS % (AUTO) 72.8 % (42-78); TOTAL CELLS COUNTED % (AUTO) 100 %; WHITE BLOOD COUNT 9.5 10^3/uL (4.0-10.5)
[2018-08-29] MEDS: RINGERS SOLUTION,LACTATED 1,000 ML IV PRN ×2 (20:08→20:31)
--- NOTE | 2018-08-29 20:32 | RADIOLOGY REPORT (SQ) ---
EXAM DESCRIPTION: XR CHEST 1 VIEW COMPLETED DATE/TME: 08/29/2018 19:39 CLINICAL HISTORY: shortness of breath COMPARISON: June 02, 2018 FINDINGS: Cardiac silhouette is within normal limits. Aorta is tortuous. EKG leads project over the chest. There is no focal parenchymal or pleural disease. There is no acute osseous process visualized. IMPRESSION: No evidence of acute cardiopulmonary disease.
[2018-08-29] MEDS ORDERED: POTASSIUM CHLORIDE 20 MEQ PACKET PO ONE (20:58)
[2018-08-29 23:14] LABS: VENOUS BLOOD BASE EXCESS 4.4 mmol/L; VENOUS BLOOD HCO3 28.1 mmol/L (20-32); VENOUS BLOOD PCO2 38.9 mmHg (35-63); VENOUS BLOOD PH 7.48 (7.30-7.42)
--- NOTE | 2018-08-30 00:59 | PDOC H&P ---
History of Present Illness Admission Date/PCP: 08/28/2018 22:57 BERNIE SAVAGE MD Patient complains of: Nausea and vomiting History of Present Illness: FABIANA HEAD is a 47 year old female who presented the emergency room with acute nausea and vomiting. She admits that she began having nausea and vomiting about noon today after having her last drink of vodka at 7 AM this morning. In the 24 hours prior to her cessation of drinking she had consumed approximately 90 ounces of vodka which is approximately her normal daily consumption. She denies any blood present in her emesis but she is concerned that she has had seizures with alcohol withdrawal in the past and she has begun feeling very shaky and anxious this afternoon and has also noted some mild occasional dyspnea. She denies other associated or accompanying symptoms. She has experienced similar symptoms previously when she stopped drinking. She has not identified any aggravating or ameliorating factors for her nausea and vomiting. In the emergency room she was found to have significant tremulousness as well as hypertension and tachycardia all consistent with acute alcohol withdrawal. She was subsequently admitted to the hospital for further evaluation and treatment. 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, Hyperlipidema, Hypertension Denies: Atrial Fibrillation, Congestive Heart Failure, Coronary Artery Disease, Peripheral Vascular Disease, Pulmonary Embolism, Heart Murmur Pulmonary Medical History: Reports: Asthma, Chronic Obstructive Pulmonary Disease (COPD) Denies: Bronchitis, Pneumonia, Respiratory Failure, Sleep Apnea, Tuberculosis EENT Medical History: Denies: Cataracts, Ears - Hearing aids Neurological Medical History: Reports: Seizures - With alcohol withdrawal Denies: Hemorrhagic CVA, Ischemic CVA, Migraine, Multiple Sclerosis Endocrine Medical History: Reports: Hypothyroidism, Obesity Denies: Diabetes Mellitus Type 1, Diabetes Mellitus Type 2, Hyperthyroidism Renal/ Medical History: Denies: Chronic Kidney Disease, Nephrolithiasis Malignancy Medical History: Reports: None GI Medical History: Reports: Gastroesophageal Reflux Disease Denies: Cirrhosis, Crohn's Disease, Hepatitis, Hiatal Hernia, Ulcerative Colitis Musculoskeltal Medical History: Denies: Arthritis, Fibromyalgia Skin Medical History: Denies: Eczema, Psoriasis Psychiatric Medical History: Reports: Alcohol Dependency, Bipolar Disorder, Depression Denies: Substance Abuse, Tobacco Dependency Traumatic Medical History: Reports: None Hematology: Denies: Anemia, Bleeding Tendencies Infectious Medical History: Reports: None Past Surgical History Past Surgical History: Reports: Appendectomy, Cholecystectomy, Orthopedic Surgery - right knee, Tonsillectomy, Tubal Ligation Social History Information Source: Patient Lives with: Spouse/Significant other Smoking Status: Never Smoker Frequency of Alcohol Use: Heavy - Consumes approximately 90 ounces of vodka daily Hx Recreational Drug Use: No Drugs: None Hx Prescription Drug Abuse: No - Advance Directive Resuscitation Status: Full Code Surrogate healthcare decision maker:: Zena Castro Family History Family History: Malignancy. denies: CAD, DM, Hypertension Parental Family History Reviewed: Yes Children Family History Reviewed: No Sibling(s) Family History Reviewed.: Yes Medication/Allergy Home Medications: Clonidine HCl [Catapres 0.1 mg Tablet] 0.1 mg PO BID 08/05/18 Hydrochlorothiazide [Hydrodiuril 25 mg Tablet] 25 mg PO DAILY 08/05/18 Levothyroxine Sodium 88 mcg PO Q6AM 08/05/18 Lisinopril [Prinivil 10 mg Tablet] 10 mg PO DAILY 08/05/18 Lurasidone HCl [Latuda] 20 mg PO DAILY 08/05/18 Magnesium Oxide [Mag-Ox 400 mg Tablet] 400 mg PO BID 08/05/18 Metoprolol Tartrate [Lopressor 25 mg Tablet] 25 mg PO Q12 08/05/18 Venlafaxine HCl ER [Effexor Xr 37.5 mg Cap.sr] 37.5 mg PO DAILY 08/05/18 Albuterol Sulfate [Proair HFA Inhalation Aerosol 8.5 gm MDI] 2 puff IH Q4HP PRN #1 hfa.aer.ad 08/10/18 Diazepam [Valium 2 mg Tablet] 2 mg PO Q6HP PRN #8 tablet 08/10/18 Folic Acid [Folvite 1 mg Tablet] 1 mg PO DAILY #90 tablet 08/10/18 Thiamine HCl [Thiamine 100 mg Tablet] 100 mg PO DAILY #30 tablet 08/10/18 Ondansetron HCl [Zofran 4 mg Tablet] 4 mg PO DAILYP PRN 08/19/18 Allergies/Adverse Reactions: No Known Allergies Allergy (Verified 06/08/14 00:01) Review of Systems Constitutional: ABSENT: chills, fever(s) Eyes: ABSENT: visual disturbances, other - Eye pain Ears: ABSENT: hearing changes, other - Ear pain Nose, Mouth, and Throat: ABSENT: mouth pain, sore throat Cardiovascular: ABSENT: chest pain, palpitations Respiratory: PRESENT: dyspnea. ABSENT: cough Gastrointestinal: PRESENT: nausea, vomiting. ABSENT: abdominal pain, constipation, diarrhea Genitourinary: ABSENT: dysuria, hematuria Musculoskeletal: ABSENT: back pain, joint swelling, muscle weakness Integumentary: ABSENT: pruritus, rash Neurological: PRESENT: as per HPI, tremor(s) - Shakiness. ABSENT: confusion, convulsions, focal weakness, memory loss, syncope Psychiatric: PRESENT: as per HPI, anxiety. ABSENT: hallucinations Endocrine: ABSENT: cold intolerance, heat intolerance Hematologic/Lymphatic: ABSENT: easy bleeding, easy bruising Physical Exam Vital Signs: Temp Pulse Resp BP Pulse Ox 97.8 F 131 H 19 171/111 H 96 08/29/18 19:04 08/29/18 19:04 08/29/18 20:27 08/29/18 20:27 08/29/18 20:27 Intake & Output 08/27/18 08/28/18 08/29/18 23:59 23:59 23:59 Intake Total 1000 Balance 1000 Weight 97.2 kg General appearance: PRESENT: no acute distress, cooperative, obese Head exam: PRESENT: atraumatic, normocephalic Eye exam: PRESENT: conjunctiva pink. ABSENT: conjunctival injection, scleral icterus Ear exam: PRESENT: normal external ear exam. ABSENT: bleeding, drainage Mouth exam: PRESENT: dry mucosa, neck supple Neck exam: ABSENT: JVD, thyromegaly, tracheal deviation Respiratory exam: PRESENT: clear to auscultation thomas, symmetrical, unlabored Cardiovascular exam: PRESENT: RRR, tachycardia. ABSENT: clicks, gallop, rubs Pulses: PRESENT: normal radial pulses, normal dorsalis pedis pul Vascular exam: PRESENT: normal capillary refill. ABSENT: pallor GI/Abdominal exam: PRESENT: normal bowel sounds, soft Rectal exam: PRESENT: deferred Extremities exam: ABSENT: joint swelling, pedal edema Musculoskeletal exam: PRESENT: full ROM, normal inspection Neurological exam: PRESENT: alert, oriented to person, oriented to place, oriented to time, oriented to situation, CN II-XII grossly intact, other - Tremors noted. ABSENT: motor sensory deficit Psychiatric exam: PRESENT: anxious, normal mood, other - Tremulous Skin exam: PRESENT: dry, intact, warm. ABSENT: jaundice, rash, urticaria Results Laboratory Results: 08/29/18 19:24 08/29/18 19:24 08/29/18 08/29/18 19:24 19:24 WBC 9.5 RBC 3.98 Hgb 13.6 Hct 38.9 MCV 98 H MCH 34.2 H MCHC 35.0 RDW 15.4 H Plt Count 220 Seg Neutrophils % 72.8 Lymphocytes % 15.7 Monocytes % 10.5 Eosinophils % 0.1 Basophils % 0.9 Absolute Neutrophils 6.9 Absolute Lymphocytes 1.5 Absolute Monocytes 1.0 Absolute Eosinophils 0.0 Absolute Basophils 0.1 Sodium 139.2 Potassium 3.1 L Chloride 99 Carbon Dioxide 26 Anion Gap 14 BUN 9 Creatinine 1.01 Est GFR ( Amer) > 60 Est GFR (Non-Af Amer) 59 L Glucose 117 H Calcium 8.5 Total Bilirubin 1.1 AST 92 H ALT 50 Alkaline Phosphatase 200 H Total Protein 8.5 H Albumin 4.2 Lipase 172.3 08/29/18 19:24 Troponin I 0.013 Impressions: Chest X-Ray 08/29/18 19:39 IMPRESSION: No evidence of acute cardiopulmonary disease. Assessment and Plan - Diagnosis (1) Alcohol withdrawal Qualifiers: Complication of substance-induced condition: with unspecified complication Qualified Code(s): F10.239 - Alcohol dependence with withdrawal, unspecified Is this a current diagnosis for this admission?: Yes Plan: Patient will be treated with a alcohol withdrawal plan utilizing scheduled dosing of Valium orally as well as PRN intravenous Valium 10 mg q. one hour for control of convulsions, severe anxiety and severe tremors. For hallucinations or severe nausea and vomiting patient be treated with Thorazine 25 mg administered intravenously every 6 hours as needed. Patient will receive IV fluids with balanced electrolyte solutions. Daily CBC, metabolic profile and magnesium levels will be followed. Patient will be on the IM. (2) Hypertension Qualifiers: Hypertension type: unspecified Qualified Code(s): I10 - Essential (primary) hypertension Is this a current diagnosis for this admission?: Yes Plan: Patient's hypertension will be treated with metoprolol intravenously, as well as hydralazine intravenously if required. Her vital signs be monitored closely throughout her hospital course. (3) Tachycardia Is this a current diagnosis for this admission?: Yes Plan: Patient's tachycardia will be treated with metoprolol administered IV until such time as she is able to take it on an oral basis. Her heart rate will be monitored closely throughout her hospitalization. (4) Hypokalemia Is this a current diagnosis for this admission?: Yes Plan: Patient's potassium will be repleted with IV potassium in crystalloid solutions as well as K riders if necessary. (5) Alcohol abuse Is this a current diagnosis for this admission?: Yes Plan: Alcohol use cessation has been advised and counseled briefly. - Time Time Spent with patient: 25-34 minutes Medications reviewed and adjusted accordingly: Yes Anticipated discharge: Home - Inpatient Certification Based on my medical assessment, after consideration of the patient's comorbidities, presenting symptoms, or acuity I expect that the services needed warrant INPATIENT care.: Yes I certify that my determination is in accordance with my understanding of Medicare's requirements for reasonable and necessary INPATIENT services [42 CFR 412.3e].: Yes Medical Necessity: Need Close Monitoring Due to Risk of Patient Decompensation, Need For IV Fluids, Need For Continuous Telemetry Monitoring, Risk of Complication if Not Cared For in Hospital, Risk of Diagnosis Which Will Require Inpatient Eval/Care/Monitoring
--- NOTE | 2018-08-30 01:01 | ADVANCED CARE ---
- Diagnosis (1) Alcohol withdrawal Diagnosis Current: Yes (2) Hypertension Diagnosis Current: Yes (3) Tachycardia Diagnosis Current: Yes (4) Hypokalemia Diagnosis Current: Yes (5) Alcohol abuse Diagnosis Current: Yes Attendance: Patient and myself. Resuscitation Status: Full Code Discussion: After brief discussion the patient is indicated she wishes to be a full code for resuscitation status throughout this hospitalization. Additionally she has named Zena Castro as her designated surrogate medical decision-maker. Care Planning Goals: 1. Patient will be a full CODE STATUS for the remainder of her hospitalization. 2. Zena Castro is her designated surrogate medical decision-maker. Document(s) Completed: The following information will be entered into the patient's permanent medical record, current medical record and current orders via EMR entry: 1. Patient will be a full CODE STATUS for the remainder of her hospitalization. 2. Zena Castro is her designated surrogate medical decision-maker. Time Spent: 5 minutes
[2018-08-30] MEDS ORDERED: LEVALBUTEROL HCL NEB 0.63 MG/3 ML AMPUL NEB PRN (01:02)
[2018-08-30] MEDS ORDERED: PROMETHAZINE HCL 25 MG SUPP.RECT PR PRN (01:02)
[2018-08-30] MEDS ORDERED: ACETAMINOPHEN 650 MG SUPP.RECT PR PRN (01:07)
[2018-08-30] MEDS ORDERED: HYDRALAZINE HCL INJ/PF 20 MG/1 ML SDV IV PRN (01:07)
[2018-08-30] MEDS ORDERED: DIAZEPAM INJ 10 MG/2 ML DISP.SYRIN IV PRN (01:07)
[2018-08-30] MEDS ORDERED: CHLORPROMAZINE HCL INJ 25 MG/1 ML AMPULE IV PRN (01:10)
[2018-08-30 02:23] LABS: FREE T3 4.44 pg/mL (2.77-5.27); FREE T4 (FREE THYROXINE) 1.29 ng/dL (0.78-2.19)
[2018-08-30 02:36] LABS: THYROID STIMULATING HORMONE 2.37 uIU/mL (0.47-4.68)
[2018-08-30] MEDS: DIAZEPAM 5 MG TABLET PO SCH ×6 (03:07→21:30)
[2018-08-30] MEDS: METOPROLOL TARTRATE PF/INJ 5 MG/5 ML SDV IV SCH ×6 (03:09→21:30)
[2018-08-30 05:10] LABS: APPEARANCE,URINE SLIGHTLY-CLOUDY; BILIRUBIN,URINE NEGATIVE (NEGATIVE); COLOR,URINE YELLOW; GLUCOSE, URINE NEGATIVE (NEGATIVE); KETONES,URINE NEGATIVE (NEGATIVE); LEUKOCYTE ESTERASE,URINE NEGATIVE (NEGATIVE); NITRITE,URINE NEGATIVE (NEGATIVE); PROTEIN,URINE 30 mg/dL (NEGATIVE); URINE SPECIFIC GRAVITY 1.009; UROBILINOGEN,URINE NEGATIVE mg/dL (<2.0)
[2018-08-30 05:19] LABS: URINE AMPHETAMINES SCREEN NEGATIVE; URINE BARBITURATES SCREEN NEGATIVE; URINE BENZODIAZEPINES SCREEN UNCONFIRMED POSITIVE; URINE COCAINE SCREEN NEGATIVE; URINE MARIJUANA (THC) SCREEN NEGATIVE; URINE METHADONE SCREEN NEGATIVE; URINE PHENCYCLIDINE SCREEN NEGATIVE
[2018-08-30] MEDS: HEPARIN SOD (PORCINE) 5,000 UNIT/ML 1 ML SYRINGE SUBCUT SCH ×3 (08:34→21:29)
[2018-08-30 09:31] LABS: ALANINE AMINOTRANSFERASE 49 U/L (9-52); ALBUMIN 3.4 g/dL (3.5-5.0); ALKALINE PHOSPHATASE 128 U/L (38-126); ANION GAP 9 (5-19); ASPARTATE AMINO TRANSFERASE 53 U/L (14-36); BILIRUBIN,DIRECT 0.3 mg/dL (0.0-0.4); BILIRUBIN,TOTAL 1.2 mg/dL (0.2-1.3); BLOOD UREA NITROGEN 11 mg/dL (7-20); CALCIUM 7.8 mg/dL (8.4-10.2); CARBON DIOXIDE 29 mmol/L (22-30); CHLORIDE 100 mmol/L (98-107); GLUCOSE 98 mg/dL (75-110); POTASSIUM 3.4 mmol/L (3.6-5.0); SODIUM 137.8 mmol/L (137-145); TOTAL PROTEIN 6.8 g/dL (6.3-8.2)
[2018-08-30 09:37] LABS: HEMATOCRIT 34.3 % (36.0-47.0); HEMOGLOBIN 12.1 g/dL (12.0-15.5); MEAN CORPUSCULAR HGB CONC 35.2 g/dL (32.0-36.0); MEAN CORPUSCULAR VOLUME 99 fl (80-97); PLATELET COUNT 182 10^3/uL (150-450); RED BLOOD COUNT 3.46 10^6/uL (3.72-5.28); RED CELL DISTRIBUTION WIDTH 15.6 % (11.5-14.0); WHITE BLOOD COUNT 7.1 10^3/uL (4.0-10.5)
[2018-08-30] MEDS: FAMOTIDINE INJ/PF 20 MG/2 ML SDV IV SCH ×2 (10:16→21:29)
[2018-08-30] MEDS: THIAMINE HCL 100 MG TABLET PO SCH (10:16)
[2018-08-30] MEDS: FOLIC ACID 1 MG TABLET PO SCH (10:16)
[2018-08-30] MEDS: MAGNESIUM OXIDE 400 MG TABLET PO SCH ×2 (10:16→17:05)
[2018-08-30] MEDS ORDERED: POTASSI CL 20 MEQ/50 ML RIDER 20 MEQ/50 ML RTUPB IV ONE (11:30)
[2018-08-30] MEDS: MAGNESIUM SULFATE/D5W 1 GM/100 ML RTUPB IV SCH ×2 (11:33→12:24)
[2018-08-30] MEDS ORDERED: GLUCAGON,HUMAN RECOMB 1 MG INJ SUBCUT PRN (14:06)
[2018-08-30] MEDS ORDERED: DEXTROSE 50%-WATER 25 GM/50 ML DISP.SYRIN IV PRN ×2 (14:06)
[2018-08-30] MEDS ORDERED: DEXTROSE 40% GEL 15 GM TUBE PO PRN ×2 (14:06)
--- NOTE | 2018-08-30 14:10 | PDOC PROGRESS REPORT ---
Subjective Progress Note for:: 08/30/18 Subjective:: Pt is awake and oriented when I saw her today, she is still a bit tremulous. Nausea persists but is no longer vomiting. She is feeling sleepy but not confused. No chest pain or difficulty breathing. No abdominal pain. No urinary difficulties. She remains interested in alcohol cessation if there is any assistance we have to offer. Reason For Visit: ACUTE ALCOHOL WITHDRAWAL Physical Exam Vital Signs: Temp Pulse Resp BP Pulse Ox 99.0 F 131 H 27 H 142/89 H 94 08/30/18 13:01 08/29/18 19:04 08/30/18 02:01 08/30/18 13:01 08/30/18 13:01 Intake & Output 08/29/18 08/30/18 08/31/18 06:59 06:59 06:59 Intake Total 2251.2 200 Balance 2251.2 200 Weight 97.2 kg General appearance: PRESENT: mild distress, obese Head exam: PRESENT: atraumatic, normocephalic Eye exam: ABSENT: conjunctival injection, scleral icterus Ear exam: PRESENT: normal external ear exam Mouth exam: PRESENT: dry mucosa, tongue midline Neck exam: ABSENT: tracheostomy Respiratory exam: PRESENT: decreased breath sounds, unlabored. ABSENT: rales, tachypnea, wheezes Cardiovascular exam: PRESENT: tachycardia. ABSENT: systolic murmur Pulses: PRESENT: normal radial pulses GI/Abdominal exam: PRESENT: normal bowel sounds, soft. ABSENT: distended, firm, guarding, tenderness Rectal exam: PRESENT: deferred Gentrourinary exam: ABSENT: indwelling catheter Extremities exam: ABSENT: pedal edema Musculoskeletal exam: PRESENT: normal inspection Neurological exam: PRESENT: alert, awake, oriented to person, oriented to place, oriented to situation, CN II-XII grossly intact Psychiatric exam: PRESENT: anxious Focused psych exam: ABSENT: restlessness Skin exam: PRESENT: dry, intact, warm Results Laboratory Results: 08/30/18 09:00 08/30/18 09:00 08/29/18 08/29/18 08/29/18 19:24 19:24 19:24 WBC 9.5 RBC 3.98 Hgb 13.6 Hct 38.9 MCV 98 H MCH 34.2 H MCHC 35.0 RDW 15.4 H Plt Count 220 Seg Neutrophils % 72.8 Lymphocytes % 15.7 Monocytes % 10.5 Eosinophils % 0.1 Basophils % 0.9 Absolute Neutrophils 6.9 Absolute Lymphocytes 1.5 Absolute Monocytes 1.0 Absolute Eosinophils 0.0 Absolute Basophils 0.1 VBG pH VBG pCO2 VBG HCO3 VBG Base Excess Sodium 139.2 Potassium 3.1 L Chloride 99 Carbon Dioxide 26 Anion Gap 14 BUN 9 Creatinine 1.01 Est GFR ( Amer) > 60 Est GFR (Non-Af Amer) 59 L Glucose 117 H Calcium 8.5 Magnesium Total Bilirubin 1.1 AST 92 H ALT 50 Alkaline Phosphatase 200 H Total Protein 8.5 H Albumin 4.2 Lipase 172.3 TSH 2.37 Free T4 1.29 Free T3 pg/mL 4.44 Urine Color Urine Appearance Urine pH Ur Specific [place] Urine Protein Urine Glucose (UA) Urine Ketones Urine Blood Urine Nitrite Ur Leukocyte Esterase Urine WBC (Auto) Urine RBC (Auto) 08/29/18 08/30/18 08/30/18 23:07 04:19 09:00 WBC 7.1 RBC 3.46 L Hgb 12.1 Hct 34.3 L MCV 99 H MCH 35.0 H MCHC 35.2 RDW 15.6 H Plt Count 182 Seg Neutrophils % Lymphocytes % Monocytes % Eosinophils % Basophils % Absolute Neutrophils Absolute Lymphocytes Absolute Monocytes Absolute Eosinophils Absolute Basophils VBG pH 7.48 H VBG pCO2 38.9 VBG HCO3 28.1 VBG Base Excess 4.4 Sodium Potassium Chloride Carbon Dioxide Anion Gap BUN Creatinine Est GFR ( Amer) Est GFR (Non-Af Amer) Glucose Calcium Magnesium Total Bilirubin AST ALT Alkaline Phosphatase Total Protein Albumin Lipase TSH Free T4 Free T3 pg/mL Urine Color YELLOW Urine Appearance SLIGHTLY-CLOUDY Urine pH 9.0 Ur Specific [place] 1.009 Urine Protein 30 H Urine Glucose (UA) NEGATIVE Urine Ketones NEGATIVE Urine Blood LARGE H Urine Nitrite NEGATIVE Ur Leukocyte Esterase NEGATIVE Urine WBC (Auto) 5 Urine RBC (Auto) 1 08/30/18 09:00 WBC RBC Hgb Hct MCV MCH MCHC RDW Plt Count Seg Neutrophils % Lymphocytes % Monocytes % Eosinophils % Basophils % Absolute Neutrophils Absolute Lymphocytes Absolute Monocytes Absolute Eosinophils Absolute Basophils VBG pH VBG pCO2 VBG HCO3 VBG Base Excess Sodium 137.8 Potassium 3.4 L Chloride 100 Carbon Dioxide 29 Anion Gap 9 BUN 11 Creatinine 1.02 Est GFR ( Amer) > 60 Est GFR (Non-Af Amer) 58 L Glucose 98 Calcium 7.8 L Magnesium 0.7 L* Total Bilirubin 1.2 AST 53 H ALT 49 Alkaline Phosphatase 128 H Total Protein 6.8 Albumin 3.4 L Lipase TSH Free T4 Free T3 pg/mL Urine Color Urine Appearance Urine pH Ur Specific [place] Urine Protein Urine Glucose (UA) Urine Ketones Urine Blood Urine Nitrite Ur Leukocyte Esterase Urine WBC (Auto) Urine RBC (Auto) 08/29/18 19:24 Troponin I 0.013 Impressions: Chest X-Ray 08/29/18 19:39 IMPRESSION: No evidence of acute cardiopulmonary disease. Assessment and Plan - Diagnosis (1) Alcohol withdrawal Qualifiers: Complication of substance-induced condition: with unspecified complication Qualified Code(s): F10.239 - Alcohol dependence with withdrawal, unspecified Is this a current diagnosis for this admission?: Yes Plan: Patient has done well with the regimen that was started on admission for alcohol withdrawal. She is receiving intermittent Valium 10 mg IV every hour as needed withdrawal symptoms. She is not overly somnolent, vital signs are improving, s he is oriented to person place situation though still a bit tremulous. I have DC'd her diet until she is in much better condition and also due to her nausea and recent vomiting. I will allow for crackers and morales anne marie. We will continue her thiamine 100 mg daily and folic acid 1 mg daily. (2) Nausea and vomiting Qualifiers: Vomiting type: unspecified Vomiting Intractability: non-intractable Qualified Code(s): R11.2 - Nausea with vomiting, unspecified Is this a current diagnosis for this admission?: Yes Plan: No emesis since yesterday. She continues with nausea. Will offer crackers and morales anne marie. No evidence of hematemesis. (3) Hypokalemia Is this a current diagnosis for this admission?: Yes Plan: She is on IV fluids with 20 mEq of potassium in the bag. I have given her 20 mequivalents of a potassium chloride rider. Will recheck potassium this afternoon. (4) Hypomagnesemia Is this a current diagnosis for this admission?: Yes Plan: Museum is less than 1 this morning. I have ordered 2 g of IV mag. We will follow magnesium again this afternoon and continue supplementation if indicated. - Time Time Spent with patient: 25-34 minutes - Inpatient Certification Based on my medical assessment, after consideration of the patient's comorbidities, presenting symptoms, or acuity I expect that the services needed warrant INPATIENT care.: Yes I certify that my determination is in accordance with my understanding of Medicare's requirements for reasonable and necessary INPATIENT services [42 CFR 412.3e].: Yes Medical Necessity: Significant Comorbidiites Make Outpatient Treatment Too Risky, Need Close Monitoring Due to Risk of Patient Decompensation
[2018-08-30] MEDS: POTASSI CL 20 MEQ/D5LR 1L 20 MEQ/1,000 ML RTUINJ IV PRN (14:26)
[2018-08-30 15:36] LABS: ANION GAP 10 (5-19); BLOOD UREA NITROGEN 10 mg/dL (7-20); CARBON DIOXIDE 30 mmol/L (22-30); CHLORIDE 98 mmol/L (98-107); GLUCOSE 107 mg/dL (75-110); POTASSIUM 3.4 mmol/L (3.6-5.0); SODIUM 137.5 mmol/L (137-145)
[2018-08-30] MEDS: PROMETHAZINE HCL INJ 25 MG/1 ML VIAL IV PRN (15:36)
--- NOTE | 2018-08-30 19:04 | EKG REPORT ---
SEVERITY:- ABNORMAL ECG - SINUS OR ECTOPIC ATRIAL TACHYCARDIA NONSPECIFIC T ABNORMALITIES, INFERIOR LEADS : Confirmed by: Tamara Boyer MD 30-Aug-2018 19:03:57
[2018-08-31] MEDS: DIAZEPAM 5 MG TABLET PO SCH ×7 (00:16→23:24)
[2018-08-31] MEDS: METOPROLOL TARTRATE PF/INJ 5 MG/5 ML SDV IV SCH ×7 (00:16→23:28)
[2018-08-31] MEDS: POTASSI CL 20 MEQ/D5LR 1L 20 MEQ/1,000 ML RTUINJ IV PRN (00:47)
[2018-08-31] MEDS: HEPARIN SOD (PORCINE) 5,000 UNIT/ML 1 ML SYRINGE SUBCUT SCH ×3 (06:06→23:25)
[2018-08-31 07:07] LABS: HEMATOCRIT 34.2 % (36.0-47.0); HEMOGLOBIN 11.9 g/dL (12.0-15.5); MEAN CORPUSCULAR HEMOGLOBIN 34.4 pg (27.0-33.4); MEAN CORPUSCULAR HGB CONC 34.8 g/dL (32.0-36.0); MEAN CORPUSCULAR VOLUME 99 fl (80-97); PLATELET COUNT 165 10^3/uL (150-450); RED BLOOD COUNT 3.47 10^6/uL (3.72-5.28); RED CELL DISTRIBUTION WIDTH 15.6 % (11.5-14.0); WHITE BLOOD COUNT 7.5 10^3/uL (4.0-10.5)
[2018-08-31 07:24] LABS: ANION GAP 7 (5-19); BLOOD UREA NITROGEN 12 mg/dL (7-20); CALCIUM 7.8 mg/dL (8.4-10.2); CARBON DIOXIDE 28 mmol/L (22-30); CHLORIDE 104 mmol/L (98-107); GLUCOSE 98 mg/dL (75-110); POTASSIUM 3.7 mmol/L (3.6-5.0); SODIUM 139.2 mmol/L (137-145); TRIGLYCERIDES 151 mg/dL (<150)
[2018-08-31 07:34] LABS: DIRECT LDL 99 mg/dL (<100)
[2018-08-31 07:38] LABS: VLDL CHOLESTEROL 30.2 mg/dL (10-31)
[2018-08-31] MEDS: FOLIC ACID 1 MG TABLET PO SCH (09:24)
[2018-08-31] MEDS: VENLAFAXINE HCL 37.5 MG CAP.SR.24H PO SCH (09:24)
[2018-08-31] MEDS: MAGNESIUM OXIDE 400 MG TABLET PO SCH ×2 (09:24→17:32)
[2018-08-31] MEDS: FAMOTIDINE INJ/PF 20 MG/2 ML SDV IV SCH ×2 (09:25→23:24)
[2018-08-31] MEDS: THIAMINE HCL 100 MG TABLET PO SCH (09:25)
[2018-08-31] MEDS ORDERED: FOLIC ACID 1 MG TABLET PO SCH (10:00)
--- NOTE | 2018-08-31 10:46 | Progress Note Acknowledgement ---
Progress Note Acknowledgement Progess Note Acknowledgement: I, the undersigned member of the medical staff with appropriate privileges and with supervisory authority over [Ben Sotelo], a dependent practice allied health professional, acknowledge that I have reviewed the progress notes entered on this patient, and in my professional judgment believe that the assessment made and/or any care evidenced was appropriate
--- NOTE | 2018-08-31 10:51 | PDOC PROGRESS REPORT ---
Subjective Progress Note for:: 08/31/18 Subjective:: 08/31/2018-no complaints this a.m. Reason For Visit: ACUTE ALCOHOL WITHDRAWAL Physical Exam Vital Signs: Temp Pulse Resp BP Pulse Ox 98.6 F 65 18 138/77 H 94 08/31/18 08:30 08/31/18 09:40 08/31/18 09:40 08/31/18 08:30 08/31/18 09:40 Intake & Output 08/30/18 08/31/18 09/01/18 06:59 06:59 06:59 Intake Total 2251.2 2140 Balance 2251.2 2140 Weight 97.2 kg 97.1 kg General appearance: PRESENT: no acute distress, well-developed, well-nourished Neck exam: ABSENT: carotid bruit, JVD, lymphadenopathy, thyromegaly Respiratory exam: PRESENT: clear to auscultation thomas. ABSENT: rales, rhonchi, wheezes Cardiovascular exam: PRESENT: RRR. ABSENT: diastolic murmur, rubs, systolic murmur Pulses: PRESENT: normal dorsalis pedis pul Vascular exam: PRESENT: normal capillary refill GI/Abdominal exam: PRESENT: normal bowel sounds, soft. ABSENT: distended, guarding, mass, organolmegaly, rebound, tenderness Extremities exam: PRESENT: full ROM. ABSENT: calf tenderness, clubbing, pedal edema Neurological exam: PRESENT: other - Shakes Psychiatric exam: PRESENT: appropriate affect, normal mood. ABSENT: homicidal ideation, suicidal ideation Skin exam: PRESENT: dry, intact, warm. ABSENT: cyanosis, rash Results Laboratory Results: 08/31/18 06:05 08/31/18 06:05 08/30/18 08/31/18 08/31/18 14:40 06:05 06:05 WBC 7.5 RBC 3.47 L Hgb 11.9 L Hct 34.2 L MCV 99 H MCH 34.4 H MCHC 34.8 RDW 15.6 H Plt Count 165 Sodium 137.5 139.2 Potassium 3.4 L 3.7 Chloride 98 104 Carbon Dioxide 30 28 Anion Gap 10 7 BUN 10 12 Creatinine 1.10 0.99 Est GFR ( Amer) > 60 > 60 Est GFR (Non-Af Amer) 53 L > 60 Glucose 107 98 Calcium 8.0 L 7.8 L Magnesium 1.4 L 1.4 L Triglycerides 151 H Cholesterol 188.00 LDL Cholesterol Direct 99 VLDL Cholesterol 30.2 HDL Cholesterol 60 08/29/18 19:24 Troponin I 0.013 Impressions: Chest X-Ray 08/29/18 19:39 IMPRESSION: No evidence of acute cardiopulmonary disease. Assessment and Plan - Diagnosis (1) Alcohol withdrawal Qualifiers: Complication of substance-induced condition: with unspecified complication Qualified Code(s): F10.239 - Alcohol dependence with withdrawal, unspecified Is this a current diagnosis for this admission?: Yes Plan: Patient has done well with the regimen that was started on admission for alcohol withdrawal. She is receiving intermittent Valium 10 mg IV every hour as needed withdrawal symptoms. She is not overly somnolent, vital signs are improving, she is oriented to person place situation though still a bit tremulous. I have DC'd her diet until she is in much better condition and also due to her nausea and recent vomiting. I will allow for crackers and morales anne marie. We will continue her thiamine 100 mg daily and folic acid 1 mg daily. 08/31/2018-stable at this time she does have some shakes. We will continue Valium therapy as well as folic acid and thiamine. (2) Hypomagnesemia Is this a current diagnosis for this admission?: Yes Plan: Museum is less than 1 this morning. I have ordered 2 g of IV mag. We will follow magnesium again this afternoon and continue supplementation if indicated. 08/31/2018-magnesium 1.4. I will give her 1 g IV magnesium in addition to her p.o. magnesium repeat mag level in a.m. (3) Anemia Is this a current diagnosis for this admission?: Yes Plan: 08/31/2018-chronic stable. Most likely microcytic in nature. (4) Alcohol abuse Is this a current diagnosis for this admission?: Yes Plan: Alcohol use cessation has been advised and counseled briefly. 08/31/2018-continue to educate about the benefits of alcohol withdrawal and cessation. - Time Time Spent with patient: 15-24 minutes - Inpatient Certification Based on my medical assessment, after consideration of the patient's comorbidities, presenting symptoms, or acuity I expect that the services needed warrant INPATIENT care.: Yes I certify that my determination is in accordance with my understanding of Medicare's requirements for reasonable and necessary INPATIENT services [42 CFR 412.3e].: Yes Medical Necessity: Other - Alcoholic withdrawal and seizure precautions
[2018-08-31] MEDS ORDERED: MAGNESIUM SULFATE/D5W 1 GM/100 ML RTUPB IV ONE (11:30)
[2018-08-31] MEDS: PROMETHAZINE HCL INJ 25 MG/1 ML VIAL IV PRN (20:03)
[2018-09-01] MEDS: METOPROLOL TARTRATE PF/INJ 5 MG/5 ML SDV IV SCH ×2 (03:45→09:03)
[2018-09-01 05:05] LABS: HEMOGLOBIN 11.8 g/dL (12.0-15.5); MEAN CORPUSCULAR HEMOGLOBIN 34.5 pg (27.0-33.4); MEAN CORPUSCULAR HGB CONC 34.7 g/dL (32.0-36.0); MEAN CORPUSCULAR VOLUME 100 fl (80-97); PLATELET COUNT 159 10^3/uL (150-450); RED BLOOD COUNT 3.42 10^6/uL (3.72-5.28); RED CELL DISTRIBUTION WIDTH 14.9 % (11.5-14.0); WHITE BLOOD COUNT 7.9 10^3/uL (4.0-10.5)
[2018-09-01] MEDS: HEPARIN SOD (PORCINE) 5,000 UNIT/ML 1 ML SYRINGE SUBCUT SCH ×3 (05:14→22:21)
[2018-09-01 05:28] LABS: ANION GAP 7 (5-19); BLOOD UREA NITROGEN 12 mg/dL (7-20); CALCIUM 8.4 mg/dL (8.4-10.2); CARBON DIOXIDE 26 mmol/L (22-30); CHLORIDE 106 mmol/L (98-107); GLUCOSE 84 mg/dL (75-110); POTASSIUM 3.8 mmol/L (3.6-5.0); SODIUM 139.4 mmol/L (137-145)
[2018-09-01] MEDS ORDERED: LORAZEPAM INJ 2 MG/1 ML VIAL IV PRN ×2 (08:37→08:40)
[2018-09-01] MEDS: MAGNESIUM OXIDE 400 MG TABLET PO SCH ×2 (09:39→18:22)
[2018-09-01] MEDS: FOLIC ACID 1 MG TABLET PO SCH (09:39)
[2018-09-01] MEDS: VENLAFAXINE HCL 37.5 MG CAP.SR.24H PO SCH (09:39)
[2018-09-01] MEDS: CLONIDINE HCL 0.1 MG TABLET PO SCH ×2 (09:39→22:21)
[2018-09-01] MEDS: THIAMINE HCL 100 MG TABLET PO SCH (09:40)
[2018-09-01] MEDS: LISINOPRIL 10 MG TABLET PO SCH (09:40)
[2018-09-01] MEDS: FAMOTIDINE INJ/PF 20 MG/2 ML SDV IV SCH ×2 (09:40→22:21)
[2018-09-01] MEDS ORDERED: (PENDING PHARMACY ID) (Lurasidone Hcl [Latuda] 20 MG) PO SCH (10:00)
[2018-09-01] MEDS: LURASIDONE HCL 40 MG TABLET PO SCH (13:49)
--- NOTE | 2018-09-01 14:10 | PDOC PROGRESS REPORT ---
Subjective Progress Note for:: 09/01/18 Subjective:: FABIANA HEAD is a 47 year old female who presented the emergency room with acute nausea and vomiting. She admits that she began having nausea and vomiting about noon today after having her last drink of vodka at 7 AM this morning. In the 24 hours prior to her cessation of drinking she had consumed approximately 90 ounces of vodka which is approximately her normal daily consumption. She denies any blood present in her emesis but she is concerned that she has had seizures with alcohol withdrawal in the past and she has begun feeling very shaky and anxious this afternoon and has also noted some mild occasional dyspnea. She denies other associated or accompanying symptoms. She has experienced similar symptoms previously when she stopped drinking. She has not identified any aggravating or ameliorating factors for her nausea and vomiting. In the emergency room she was found to have significant tremulousness as well as hypertension and tachycardia all consistent with acute alcohol withdrawal. She was subsequently admitted to the hospital for further evaluation and treatment. 09/01/2018. No acute events overnight, still complaining of mild anxiety, t remors, denies any hallucination, formication, denies any fever, chills, nausea, vomiting, diarrhea, constipation or any urinary symptoms. Reason For Visit: ACUTE ALCOHOL WITHDRAWAL Physical Exam Vital Signs: Temp Pulse Resp BP Pulse Ox 97.8 F 70 18 131/81 H 95 09/01/18 12:08 09/01/18 12:08 09/01/18 12:08 09/01/18 12:08 09/01/18 12:08 Intake & Output 08/31/18 09/01/18 09/02/18 06:59 06:59 06:59 Intake Total 2140 2662 Balance 2140 2662 Weight 97.1 kg 97.3 kg General appearance: PRESENT: no acute distress, obese, well-developed, well- nourished Head exam: PRESENT: atraumatic, normocephalic Respiratory exam: PRESENT: clear to auscultation thomas. ABSENT: rales, rhonchi, wheezes Cardiovascular exam: PRESENT: RRR. ABSENT: diastolic murmur, rubs, systolic murmur GI/Abdominal exam: PRESENT: normal bowel sounds, soft. ABSENT: distended, guarding, mass, organolmegaly, rebound, tenderness Extremities exam: PRESENT: full ROM. ABSENT: calf tenderness, clubbing, pedal edema Neurological exam: PRESENT: alert, awake, oriented to person, oriented to place, oriented to time, oriented to situation, CN II-XII grossly intact. ABSENT: motor sensory deficit Psychiatric exam: PRESENT: anxious Results Laboratory Results: 09/01/18 04:05 09/01/18 04:05 09/01/18 09/01/18 04:05 04:05 WBC 7.9 RBC 3.42 L Hgb 11.8 L Hct 34.0 L MCV 100 H MCH 34.5 H MCHC 34.7 RDW 14.9 H Plt Count 159 Sodium 139.4 Potassium 3.8 Chloride 106 Carbon Dioxide 26 Anion Gap 7 BUN 12 Creatinine 0.91 Est GFR ( Amer) > 60 Est GFR (Non-Af Amer) > 60 Glucose 84 Calcium 8.4 Magnesium 1.6 08/29/18 19:24 Troponin I 0.013 Impressions: Chest X-Ray 08/29/18 19:39 IMPRESSION: No evidence of acute cardiopulmonary disease. Assessment and Plan - Diagnosis (1) Alcohol withdrawal Qualifiers: Complication of substance-induced condition: with unspecified complication Qualified Code(s): F10.239 - Alcohol dependence with withdrawal, unspecified Is this a current diagnosis for this admission?: Yes Plan: Patient is still tremulous and anxious, denies any visual or auditory hallucination or formication. Vitals WNL. Monitor for seizure, aspiration, fall precautions. Continue benzos as needed, taper if possible. Continue folic acid, thiamine. (2) Anemia Qualifiers: Anemia type: folate deficiency Folate deficiency anemia type: dietary Qualified Code(s): D52.0 - Dietary folate deficiency anemia Is this a current diagnosis for this admission?: Yes Plan: Microcytic. MCV 100. Likely due to chronic EtOH abuse. Denies any hematemesis, hemoptysis, easy bruising, easy bleeding, melena, hematochezia, vaginal bleeding. Will obtain stool guaiac, iron panel and B12 and folic acid level. (3) Hypomagnesemia Is this a current diagnosis for this admission?: Yes Plan: Likely due to insufficient dietary intake. Continue p.o. magnesium daily. Magnesium level tomorrow. Replace as needed. (4) Morbid obesity with BMI of 40.0-44.9, adult Is this a current diagnosis for this admission?: Yes Plan: Diet and lifestyle modification encouraged. Patient may benefit from bariatric interventions. Outpatient PCP follow-up. (5) Hypertension Qualifiers: Hypertension type: unspecified Qualified Code(s): I10 - Essential (primary) hypertension Is this a current diagnosis for this admission?: Yes Plan: Uncontrolled. SBP's 150s. Restart clonidine, lisinopril. Continue hydralazine IV as needed. Monitor BP, adjust meds as needed. Outpatient PCP follow-up. (6) Psychiatric disorder Is this a current diagnosis for this admission?: Yes Plan: Restart home meds. Outpatient psychiatry (7) Depression Qualifiers: Depression Type: unspecified Qualified Code(s): F32.9 - Major depressive disorder, single episode, unspecified Is this a current diagnosis for this admission?: Yes Plan: Denies any SI/HI Restart SNRIs. Outpatient PCP follow-up.
[2018-09-01 15:33] LABS: RETICULOCYTE COUNT (AUTO) 2.92 % (0.66-2.85)
[2018-09-01 16:50] LABS: IRON(TIBC) 54.9 ug/dL (37-170)
[2018-09-01 17:58] LABS: FOLATE > 20.00 ng/mL (>2.76)
[2018-09-02 04:15] LABS: ABSOLUTE BASOPHILS # (AUTO) 0.1 10^3/uL (0.0-0.2); ABSOLUTE EOSINOPHILS # (AUTO) 0.2 10^3/uL (0.0-0.6); ABSOLUTE LYMPHOCYTES (AUTO) 2.4 10^3/uL (0.5-4.7); ABSOLUTE MONOCYTES (AUTO) 0.7 10^3/uL (0.1-1.4); ABSOLUTE NEUT (AUTO) 5.4 10^3/uL (1.7-8.2); BASOPHILS % (AUTO) 0.9 % (0-2); EOSINOPHILS % (AUTO) 2.8 % (0-6); HEMATOCRIT 32.4 % (36.0-47.0); HEMOGLOBIN 11.2 g/dL (12.0-15.5); MEAN CORPUSCULAR HEMOGLOBIN 34.4 pg (27.0-33.4); MEAN CORPUSCULAR HGB CONC 34.6 g/dL (32.0-36.0); MEAN CORPUSCULAR VOLUME 99 fl (80-97); MONOCYTES % (AUTO) 8.4 % (3-13); PLATELET COUNT 162 10^3/uL (150-450); RED BLOOD COUNT 3.26 10^6/uL (3.72-5.28); RED CELL DISTRIBUTION WIDTH 14.8 % (11.5-14.0); SEGMENTED NEUTROPHILS % (AUTO) 60.9 % (42-78); TOTAL CELLS COUNTED % (AUTO) 100 %; WHITE BLOOD COUNT 8.9 10^3/uL (4.0-10.5)
[2018-09-02 04:34] LABS: ALANINE AMINOTRANSFERASE 34 U/L (9-52); ALBUMIN 3.1 g/dL (3.5-5.0); ALKALINE PHOSPHATASE 76 U/L (38-126); ANION GAP 8 (5-19); ASPARTATE AMINO TRANSFERASE 34 U/L (14-36); BILIRUBIN,DIRECT 0.3 mg/dL (0.0-0.4); BILIRUBIN,TOTAL 0.5 mg/dL (0.2-1.3); BLOOD UREA NITROGEN 18 mg/dL (7-20); CALCIUM 8.8 mg/dL (8.4-10.2); CARBON DIOXIDE 25 mmol/L (22-30); CHLORIDE 104 mmol/L (98-107); GLUCOSE 111 mg/dL (75-110); POTASSIUM 4.1 mmol/L (3.6-5.0); SODIUM 136.8 mmol/L (137-145); TOTAL PROTEIN 6.3 g/dL (6.3-8.2)
[2018-09-02] MEDS: HEPARIN SOD (PORCINE) 5,000 UNIT/ML 1 ML SYRINGE SUBCUT SCH (05:02)
[2018-09-02] MEDS ORDERED: MAGNESIUM SULFATE/D5W 1 GM/100 ML RTUPB IV ONE (07:39)
[2018-09-02] MEDS: VENLAFAXINE HCL 37.5 MG CAP.SR.24H PO SCH (09:23)
[2018-09-02] MEDS: CLONIDINE HCL 0.1 MG TABLET PO SCH (09:23)
[2018-09-02] MEDS: LISINOPRIL 10 MG TABLET PO SCH (09:23)
[2018-09-02] MEDS: MAGNESIUM OXIDE 400 MG TABLET PO SCH (09:24)
[2018-09-02] MEDS: LURASIDONE HCL 40 MG TABLET PO SCH (09:24)
[2018-09-02] MEDS: FOLIC ACID 1 MG TABLET PO SCH (09:24)
[2018-09-02] MEDS: THIAMINE HCL 100 MG TABLET PO SCH (09:24)
[2018-09-02] MEDS: FAMOTIDINE INJ/PF 20 MG/2 ML SDV IV SCH (09:24)
[2018-09-02 12:38] VITALS: BP 126/87
--- NOTE | 2018-09-03 18:51 | PDOC DISCHARGE SUMMARY ---
General - Admit/Disc Date/PCP Admission Date/Primary Care Provider: 08/29/18 21:32 BERNIE SAVAGE MD Discharge Date: 09/02/18 - Discharge Diagnosis (1) Alcohol withdrawal Is this a current diagnosis for this admission?: Yes (2) Anemia Is this a current diagnosis for this admission?: Yes (3) Hypomagnesemia Is this a current diagnosis for this admission?: Yes (4) Morbid obesity with BMI of 40.0-44.9, adult Is this a current diagnosis for this admission?: Yes (5) Hypertension Is this a current diagnosis for this admission?: Yes (6) Psychiatric disorder Is this a current diagnosis for this admission?: Yes (7) Depression Is this a current diagnosis for this admission?: Yes - Additional Information Resuscitation Status: Full Code Discharge Diet: As Tolerated Discharge Activity: Activity As Tolerated Home Medications: Albuterol Sulfate [Proair HFA Inhalation Aerosol 8.5 gm MDI] 2 puff IH Q4HP PRN 08/30/18 Alprazolam [Xanax 0.5 mg Tablet] 0.5 mg PO Q8HP PRN 08/30/18 Clonidine HCl [Catapres 0.1 mg Tablet] 0.1 mg PO Q12 08/30/18 Folic Acid [Folvite 1 mg Tablet] 1 mg PO DAILY 08/30/18 Lisinopril [Prinivil 10 mg Tablet] 10 mg PO DAILY 08/30/18 Lurasidone HCl [Latuda] 20 mg PO DAILY 08/30/18 Metoprolol Tartrate [Lopressor 25 mg Tablet] 25 mg PO Q12 08/30/18 Ondansetron HCl [Zofran 4 mg Tablet] 4 mg PO DAILY 08/30/18 Venlafaxine HCl ER [Effexor Xr 37.5 mg Cap.sr] 37.5 mg PO DAILY 08/30/18 History of Present Illness History of Present Illness: FABIANA HEAD is a 47 year old female Hospital Course Hospital Course: (1) Alcohol withdrawal Tremulousness and anxiety has improved. Denied any visual or auditory hallucination or formication. Vitals WNL. Was admitted to [facility]. Started on DT protocol. Monitored for seizure, aspiration, fall precautions. Continued benzos as needed and tapered. Continued on folic acid, thiamine. (2) Anemia Microcytic. MCV 100. Likely due to chronic EtOH abuse. Denies any hematemesis, hemoptysis, easy bruising, easy bleeding, melena, hematochezia, vaginal bleeding. (3) Hypomagnesemia Resolved Likely due to insufficient dietary intake. Continued on p.o. magnesium daily. Magnesium level daily Replaced as needed. (4) Morbid obesity with BMI of 40.0-44.9, adult Diet and lifestyle modification encouraged. Patient may benefit from bariatric interventions. Outpatient PCP follow-up. (5) Hypertension Controlled. Restarted on clonidine, lisinopril. Continued hydralazine IV as needed. Monitor BP, adjust meds as needed. An appointment was made for her to see CP on 09/03/2018. (6) Psychiatric disorder Restarted home meds. Outpatient psychiatry (7) Depression Denies any SI/HI Restarted SNRIs. Outpatient PCP follow-up. Physical Exam Vital Signs: Temp Pulse Resp BP Pulse Ox 97.5 F 51 L 14 126/87 H 98 09/02/18 13:00 09/02/18 13:00 09/02/18 13:00 09/02/18 13:00 09/02/18 13:00 Intake & Output 09/02/18 09/03/18 09/04/18 06:59 06:59 06:59 Intake Total 1780 100 Output Total 53 Balance 1727 100 Weight 97.7 kg General appearance: PRESENT: obese Head exam: PRESENT: atraumatic, normocephalic Respiratory exam: PRESENT: clear to auscultation thomas. ABSENT: rales, rhonchi, wheezes Cardiovascular exam: PRESENT: RRR. ABSENT: diastolic murmur, rubs, systolic murmur GI/Abdominal exam: PRESENT: normal bowel sounds, soft. ABSENT: distended, guarding, mass, organolmegaly, rebound, tenderness Extremities exam: PRESENT: full ROM. ABSENT: calf tenderness, clubbing, pedal edema Neurological exam: PRESENT: alert, awake, oriented to person, oriented to place, oriented to time, oriented to situation, CN II-XII grossly intact. ABSENT: motor sensory deficit Psychiatric exam: PRESENT: appropriate affect, normal mood. ABSENT: homicidal ideation, suicidal ideation Results Laboratory Results: 09/02/18 03:48 09/02/18 03:48 08/29/18 19:24 Troponin I 0.013 Impressions: Chest X-Ray 08/29/18 19:39 IMPRESSION: No evidence of acute cardiopulmonary disease. Qualifiers - * PATIENT BEING DISCHARGED WITH ANY OF THE FOLLOWING DIAGNOSIS: No Acute Heart Failure - Is this a Heart Failure Patient?: No
== END 2018-09-02 01:13 | disposition home or self-care (01) | DRG 897 ==
LOC: ER 19:04 → EH 21:32 → 3N 08-30 13:42
PROVIDERS: ADMIT Emergency Medicine; ATTEND Emergency Medicine
DX: F10.239 Alcohol dependence with withdrawal, unspecified (principal); Z68.41 Body mass index [BMI] 40.0-44.9, adult; I25.2 Old myocardial infarction; E78.5 Hyperlipidemia, unspecified; I10 Essential (primary) hypertension; E83.42 Hypomagnesemia; J44.9 Chronic obstructive pulmonary disease, unspecified; D64.9 Anemia, unspecified; E03.9 Hypothyroidism, unspecified; E66.9 Obesity, unspecified; K21.9 Gastro-esophageal reflux disease without esophagitis; F31.9 Bipolar disorder, unspecified; R00.0 Tachycardia, unspecified; E87.6 Hypokalemia; Z90.49 Acquired absence of other specified parts of digestive tract; Z83.3 Family history of diabetes mellitus; Z82.49 Family history of ischemic heart disease and other diseases of the circulatory system; Z79.899 Other long term (current) drug therapy
CPT/HCPCS: 36415; 71045; 80048; 80053; 80061; 80307; 81001; 82607; 82728; 82746; 82803; 83540; 83550; 83690; 83735; 84439; 84443; 84481; 84484; 85025; 85027; 85045; 93005; 93010; 96365; 96375; 99291; J1644; J2060; J2550; J3360; J3411; J3475; J3480; J3490; J7050; J7120; S0028

== ENCOUNTER 2018-12-25 15:35 | Inpatient (IN) | payer MEDICARE, MEDICAID ==
[2018-12-25] MEDS ORDERED: NORMAL SALINE 1000 ML 1,000 ML IV ONE ×3 (15:54→17:36)
[2018-12-25] MEDS ORDERED: LORAZEPAM INJ 2 MG/1 ML VIAL IV ONE ×4 (15:54→20:45)
[2018-12-25] MEDS: DILTIAZEM HCL/D5W 125 MG/125 ML RTUINJ IV PRN ×2 (16:05→20:52)
[2018-12-25] MEDS ORDERED: THIAMINE HCL 100 MG, FOLIC ACID 1 MG in NORMAL SALINE 250 ML IV ONE (16:23)
[2018-12-25 16:35] LABS: ABSOLUTE LYMPHOCYTES (AUTO) 2.8 10^3/uL (0.5-4.7); ABSOLUTE NEUT (AUTO) 7.5 10^3/uL (1.7-8.2); EOSINOPHILS % (AUTO) 0.1 % (0-6); LYMPHOCYTES % (AUTO) 24.2 % (13-45); MONOCYTES % (AUTO) 8.9 % (3-13); TOTAL CELLS COUNTED % (AUTO) 100 %
[2018-12-25] MEDS ORDERED: METOCLOPRAMIDE HCL INJ/PF 10 MG/2 ML SDV IV ONE (16:39)
[2018-12-25 16:43] LABS: ABSOLUTE BASOPHILS # (AUTO) 0.2 10^3/uL (0.0-0.2); BASOPHILS % (AUTO) 1.6 % (0-2); HEMATOCRIT 38.8 % (36.0-47.0); HEMOGLOBIN 13.5 g/dL (12.0-15.5); MEAN CORPUSCULAR HEMOGLOBIN 34.6 pg (27.0-33.4); MEAN CORPUSCULAR HGB CONC 34.8 g/dL (32.0-36.0); MEAN CORPUSCULAR VOLUME 99 fl (80-97); PLATELET COUNT 340 10^3/uL (150-450); RED BLOOD COUNT 3.91 10^6/uL (3.72-5.28); RED CELL DISTRIBUTION WIDTH 13.6 % (11.5-14.0); SEGMENTED NEUTROPHILS % (AUTO) 65.2 % (42-78); WHITE BLOOD COUNT 11.6 10^3/uL (4.0-10.5)
[2018-12-25] MEDS: MAGNESIUM SULFATE/D5W 1 GM/100 ML RTUPB IV SCH ×2 (16:53→17:59)
[2018-12-25 17:00] LABS: ALBUMIN 4.9 g/dL (3.5-5.0); ALKALINE PHOSPHATASE 202 U/L (38-126); ASPARTATE AMINO TRANSFERASE 119 U/L (14-36); BILIRUBIN,DIRECT 0.5 mg/dL (0.0-0.4); BILIRUBIN,TOTAL 0.9 mg/dL (0.2-1.3); BLOOD UREA NITROGEN 15 mg/dL (7-20); CALCIUM 9.3 mg/dL (8.4-10.2); GLUCOSE 173 mg/dL (75-110); POTASSIUM 3.3 mmol/L (3.6-5.0); TOTAL PROTEIN 9.3 g/dL (6.3-8.2)
[2018-12-25] MEDS: LORAZEPAM INJ 2 MG/1 ML VIAL IV PRN ×4 (17:04→20:49)
[2018-12-25 17:05] LABS: CARBON DIOXIDE 13 mmol/L (22-30); CHLORIDE 98 mmol/L (98-107)
[2018-12-25 17:11] LABS: ANION GAP 30 (5-19)
[2018-12-25] MEDS ORDERED: POTASSIUM CHLORIDE 10 MEQ CAPSULE.ER PO ONE (17:17)
[2018-12-25] MEDS ORDERED: POTASSI CL 20 MEQ/50 ML RIDER 20 MEQ/50 ML RTUPB IV SCH (17:30)
[2018-12-25] MEDS ORDERED: MAGNESIUM SULFATE/D5W 1 GM/100 ML RTUPB IV SCH (17:30)
[2018-12-25] MEDS ORDERED: DIGOXIN INJ 0.5 MG/2 ML AMPULE IV ONE (17:32)
[2018-12-25] MEDS ORDERED: DILTIAZEM HCL/D5W 125 MG/125 ML RTUINJ IV PRN (17:38)
--- NOTE | 2018-12-25 17:42 | RADIOLOGY REPORT (SQ) ---
EXAM DESCRIPTION: CHEST SINGLE VIEW COMPLETED DATE/TIME: 12/25/2018 5:31 pm REASON FOR STUDY: irregular heart rate COMPARISON: Chest radiographs 08/29/2018 EXAM PARAMETERS: NUMBER OF VIEWS: One view. TECHNIQUE: Single frontal radiographic view of the chest acquired. RADIATION DOSE: NA LIMITATIONS: None. FINDINGS: LUNGS AND PLEURA: No opacities, masses or pneumothorax. No pleural effusion. MEDIASTINUM AND HILAR STRUCTURES: Stable. HEART AND VASCULAR STRUCTURES: Heart normal in size. Normal vasculature. BONES: No acute findings. HARDWARE: None in the chest. OTHER: No other significant finding. IMPRESSION: NO ACUTE RADIOGRAPHIC FINDING IN THE CHEST. TECHNICAL DOCUMENTATION: JOB ID: [id number] [employer]- All Rights Reserved Reading location - IP/workstation name: [email or web address]
--- NOTE | 2018-12-25 17:53 | ER Document Report ---
Entered by RAMON TREJO SCRIBE 12/25/18 [id number] Acting as scribe for:ELIZABETH COFFEY MD ED Substance Abuse / Acc. OD - General Stated Complaint: ETOH Time Seen by Provider: 12/25/18 16:04 Mode of Arrival: Ambulatory Information source: Patient Notes: Patient is a 48-year-old female that presents to the emergency department today with complaints of alcohol withdrawal. Patient states she drinks a 1/2 gallon of vodka daily but she ran out this morning at 0500 so her last drink was approximately 12 hours ago. Patient is tremulous on arrival. Patient was irregularly irregular for EMS with a heart rate into the 170s. Patient does have some EKGs on file here showing rapid A. fib. Patient states she has had seizures in the past with former alcohol withdrawal. Patient does report having a seizure today which was unwitnessed so this is questionable. EMS gave x2 25 mg Cardizem bolus. TRAVEL OUTSIDE OF THE [place] 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 leg. Pt. has a steel debi. Past Surgical History: Reports: Hx Appendectomy, Hx Cholecystectomy, Hx Orthopedic Surgery - right knee, Hx Tonsillectomy, Hx Tubal Ligation - Immunizations Hx Diphtheria, Pertussis, Tetanus Vaccination: No Hx Pneumococcal Vaccination: 05/05/11 Review of Systems - Review of Systems Constitutional: See HPI, Other - Alcohol withdrawal EENT: No symptoms reported Cardiovascular: No symptoms reported Respiratory: No symptoms reported Gastrointestinal: No symptoms reported Genitourinary: No symptoms reported Female Genitourinary: No symptoms reported Musculoskeletal: No symptoms reported Skin: No symptoms reported Hematologic/Lymphatic: No symptoms reported Neurological/Psychological: See HPI, Seizure - ? -: Yes All other systems reviewed and negative Physical Exam - Notes Notes: Physical Exam: General: Alert, disheveled, tremulous. HEENT: Normocephalic. Atraumatic. PERRL. Extraocular movements intact. Oropharynx clear. Dry mucous membranes. Neck: Supple. Non-tender. Respiratory: No respiratory distress. Tachypneic, clear and equal breath sounds bilaterally. Cardiovascular: Irregularly irregular, tachycardic. Abdominal: Normal Inspection. Non-tender. No distension. Normal Bowel Sounds. Back: No gross abnormalities. Extremities: Moves all four extremities. Upper extremities: Normal inspection. Normal ROM. Lower extremities: Normal inspection. No edema. Normal ROM. Neurological: Normal cognition. AAOx4. Normal speech. Psychological: Normal affect. Normal Mood. Skin: Warm. Dry. Normal color. Course - Re-evaluation Re-evalutation: 12/25/18 17:38 Patient found to be fluctuating between SVT versus a flutter and atrial fibrillation. To 25 mg boluses of diltiazem was provided by EMS. She is on 15 mg an hour diltiazem at this point. Her heart rate has been fluctuating 120s to 160s she is tolerating well she is not hypo-or hypertensive. Discussed case with Dr. Boyer who suggested providing 0.25 mg of digoxin with the diltiazem. Magnesium, potassium, folate, thiamine provided in the emergency department. Clinically the patient is dry with dry oral mucous membranes. Fluids provided as well as fluid rate started. - Laboratory Result Diagrams: 12/25/18 15:03 12/25/18 15:03 Laboratory results interpreted by me: 12/25/18 12/25/18 15:03 15:03 WBC 11.6 H MCV 99 H MCH 34.6 H Potassium 3.3 L Carbon Dioxide 13 L Anion Gap 30 H Creatinine 1.40 H Est GFR ( Amer) 48 L Est GFR (MDRD) Non-Af 40 L Glucose 173 H Magnesium 1.0 L* Direct Bilirubin 0.5 H AST 119 H Alkaline Phosphatase 202 H Total Protein 9.3 H Discharge - Discharge Clinical Impression: ETOH abuse, Paroxysmal A-fib, Hypomagnesemia Alcohol withdrawal Qualifiers: Complication of substance-induced condition: uncomplicated Qualified Code(s): F10.230 - Alcohol dependence with withdrawal, uncomplicated Disposition: ADMITTED INPATIENT Admitting Provider: [facility] Unit Admitted: ICU Scribe Attestation: 12/25/18 17:49 I personally performed the services described in the documentation, reviewed and edited the documentation which was dictated to the scribe in my presence, and it accurately records my words and actions. 12/25/18 1749 I personally performed the services described in the documentation, reviewed and edited the documentation which was dictated to the scribe in my presence, and it accurately records my words and actions.
[2018-12-25] MEDS ORDERED: ACETAMINOPHEN 325 MG TABLET PO PRN (17:54)
[2018-12-25] MEDS ORDERED: OXYCODONE-ACETAMINOPHEN 5-325 MG TABLET PO PRN (17:54)
[2018-12-25] MEDS ORDERED: TEMAZEPAM 7.5 MG CAPSULE PO PRN (17:54)
[2018-12-25] MEDS ORDERED: IPRATROPIUM/ALBUTEROL 0.5-2.5 MG/3 ML AMPUL NEB PRN (17:54)
[2018-12-25] MEDS ORDERED: PROMETHAZINE HCL INJ 25 MG/1 ML VIAL IV PRN (17:54)
[2018-12-25] MEDS ORDERED: ONDANSETRON HCL INJ/PF 4 MG/2 ML SDV IV PRN (17:54)
[2018-12-25] MEDS ORDERED: NORMAL SALINE 1000 ML 1,000 ML IV PRN (17:54)
[2018-12-25] MEDS ORDERED: LORAZEPAM INJ 2 MG/1 ML VIAL IV PRN (17:59)
[2018-12-25] MEDS ORDERED: METOPROLOL TARTRATE PF/INJ 5 MG/5 ML SDV IV PRN ×2 (17:59→19:00)
[2018-12-25] MEDS ORDERED: FOLIC ACID 1 MG TABLET PO SCH (18:15)
[2018-12-25] MEDS ORDERED: MIDAZOLAM HCL 50 MG/100 ML RTUINJ IV PRN (18:50)
[2018-12-25] MEDS ORDERED: THIAMINE HCL 100 MG TABLET PO SCH (19:00)
[2018-12-25] MEDS ORDERED: DIPHENOXYLATE HCL/ATROP SULF 2.5-0.025 MG TABLET PO PRN (19:02)
[2018-12-25] MEDS ORDERED: LEVALBUTEROL HCL NEB 1.25 MG/3 ML AMPUL NEB PRN (19:21)
[2018-12-25] MEDS: ONDANSETRON HCL INJ/PF 4 MG/2 ML SDV IV PRN (19:25)
[2018-12-25 19:30] LABS: APPEARANCE,URINE SLIGHTLY-CLOUDY; BILIRUBIN,URINE NEGATIVE (NEGATIVE); COLOR,URINE YELLOW; GLUCOSE, URINE 50 mg/dL (NEGATIVE); KETONES,URINE 20 mg/dL (NEGATIVE); LEUKOCYTE ESTERASE,URINE NEGATIVE (NEGATIVE); NITRITE,URINE NEGATIVE (NEGATIVE); PROTEIN,URINE >=500 mg/dL (NEGATIVE); URINE SPECIFIC GRAVITY 1.013; UROBILINOGEN,URINE NEGATIVE mg/dL (<2.0)
[2018-12-25 19:42] LABS: URINE AMPHETAMINES SCREEN NEGATIVE; URINE BARBITURATES SCREEN NEGATIVE; URINE BENZODIAZEPINES SCREEN UNCONFIRMED POSITIVE; URINE COCAINE SCREEN NEGATIVE; URINE MARIJUANA (THC) SCREEN NEGATIVE; URINE METHADONE SCREEN NEGATIVE; URINE PHENCYCLIDINE SCREEN NEGATIVE
[2018-12-25] MEDS ORDERED: POTASSI CL 20 MEQ/50 ML RIDER 20 MEQ/50 ML RTUPB IV ONE (20:00)
--- NOTE | 2018-12-25 20:26 | CRITICAL CARE ADMISSION REPORT ---
HPI Date:: 12/25/18 Time:: 19:00 Reason for ICU Reason:: Alcohol WD, hypomagnesemia, SVT/Afib RVR, hypokalemia. HPI: This patient is a 48 yo woman said have been drinking alcoholically since age 10. She now comes to the ED in withdrawal after not drinking since 5A this AM. She is somewhat confused but still able to converse. HR not controlled at 160s with no symptoms. Magnesium 1.0 K 3.3 CRX fairly clear. Diarrhea. Some nausea. History obtained from:: Patient - Diagnosis/Plan (1) Alcohol abuse Is this a current diagnosis for this admission?: Yes Plan: With abuse ongoing since age 10 this will make it very unlikely she will achieve sobriety soon. Nevertheless will eap counselor her when more stable. (2) Alcohol withdrawal Qualifiers: Complication of substance-induced condition: uncomplicated Qualified Code(s): F10.230 - Alcohol dependence with withdrawal, uncomplicated Is this a current diagnosis for this admission?: Yes Plan: She admits to half a gallon of vodka?day. Needs ativan. Al though extubated she may need a drip to control symptoms at first. Will not address sobriety until WD has passed. (3) Hypomagnesemia Is this a current diagnosis for this admission?: Yes Plan: Mag level1.0 She has received 2 gms, 4 more ordered and recheck. (4) Paroxysmal A-fib Is this a current diagnosis for this admission?: Yes Plan: On cardizem drip, PRN lopressor as well. Echo ordered to evaluate for holiday heart. May not achieve control for a while. Dr Cabrera consulted and added digoxin. (5) Acute kidney injury Is this a current diagnosis for this admission?: Yes Plan: Mild and should improve with rehydration. (6) COPD (chronic obstructive pulmonary disease) Qualifiers: Emphysema type: unspecified Is this a current diagnosis for this admission?: Yes Plan: Currently stable Xopenex ordered given her HR. (7) Hypokalemia Is this a current diagnosis for this admission?: Yes Plan: Will replace after magnesium level is higher. (8) Hypomagnesemia Is this a current diagnosis for this admission?: Yes Plan: Total of 6 gms ordered before recheck. (9) Morbid obesity with BMI of 40.0-44.9, adult Is this a current diagnosis for this admission?: Yes Plan: Chronic 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, Hyperlipidema, Hypertension Denies: Atrial Fibrillation, Congestive Heart Failure, Coronary Artery Disease, Peripheral Vascular Disease, Pulmonary Embolism, Heart Murmur Pulmonary Medical History: Reports: Asthma, Chronic Obstructive Pulmonary Disease (COPD) Denies: Bronchitis, Pneumonia, Respiratory Failure, Sleep Apnea, Tuberculosis Neurological Medical History: Reports: Seizures - With alcohol withdrawal Denies: Migraine Endocrine Medical History: Reports: Hypothyroidism Denies: Diabetes Mellitus Type 1, Diabetes Mellitus Type 2, Hyperthyroidism Renal/ Medical History: Denies: End Stage Renal Disease GI Medical History: Reports: Gastroesophageal Reflux Disease Denies: Cirrhosis, Crohn's Disease, Hepatitis, Hiatal Hernia, Ulcerative Colitis Musculoskeltal Medical History: Denies: Arthritis, Fibromyalgia Skin Medical History: Denies: Eczema, Psoriasis Psychiatric Medical History: Reports: Bipolar Disorder, Depression Hematology: Denies: Anemia, Hemophilia, Bleeding Tendencies, Heparin Induced Thrombocytopenia Past Surgical History Past Surgical History: Reports: Appendectomy, Cholecystectomy, Orthopedic Surgery - right knee, Tonsillectomy, Tubal Ligation Denies: Amputation, Section, Hysterectomy, Mastectomy Social/Family History - Social History Smoking Status: Unknown if Ever Smoked Frequency of Alcohol Use: Heavy Last Alcohol Use: 12/25/18 Hx Recreational Drug Use: No Drugs: None Hx Prescription Drug Abuse: No - Medication/Allergies Home Medications: Albuterol Sulfate [Proair Hfa Inhalation Aerosol 8.5 gm Mdi] 2 puff IH Q4HP PRN 12/25/18 Alprazolam [Xanax] 0.5 mg PO Q8HP PRN 12/25/18 Clonidine HCl [Catapres 0.1 mg Tablet] 0.1 mg PO Q12 12/25/18 Folic Acid [Folvite 1 mg Tablet] 1 mg PO DAILY 12/25/18 Hydrochlorothiazide [Hydrodiuril 25 mg Tablet] 25 mg PO DAILY 12/25/18 Ibuprofen [Motrin 600 mg Tablet] 600 mg PO TID 12/25/18 Levothyroxine Sodium [Synthroid 0.088 mg Tablet] 0.088 mg PO DAILY 12/25/18 Lisinopril [Prinivil 10 mg Tablet] 10 mg PO DAILY 12/25/18 Magnesium Oxide [Mag-Ox 400 mg Tablet] 400 mg PO DAILY 12/25/18 Metoprolol Tartrate [Lopressor 25 mg Tablet] 25 mg PO Q12 12/25/18 Omeprazole 40 mg PO DAILY 12/25/18 Potassium Chloride [K-Tab ER] 20 meq PO BID 12/25/18 Venlafaxine HCl ER [Effexor Xr 37.5 mg Cap.sr] 37.5 mg PO DAILY 12/25/18 Allergies/Adverse Reactions: No Known Allergies Allergy (Verified 09/18/18 14:15) Review of Systems Constitutional: PRESENT: weakness Eyes: ABSENT: visual disturbances Ears: ABSENT: hearing changes Cardiovascular: ABSENT: chest pain, dyspnea on exertion, edema, orthropnea, palpitations Respiratory: PRESENT: dyspnea Gastrointestinal: PRESENT: nausea. ABSENT: abdominal pain, constipation, diarrhea, hematemesis, hematochezia, vomiting Musculoskeletal: ABSENT: joint swelling Integumentary: ABSENT: rash, wounds Neurological: PRESENT: confusion Psychiatric: ABSENT: anxiety, depression, homidical ideation, suicidal ideation Hematologic/Lymphatic: ABSENT: easy bleeding, easy bruising Physical Exam Vital Signs: Temp Pulse Resp BP Pulse Ox 28 H 163/96 H 97 12/25/18 18:16 12/25/18 18:16 12/25/18 18:16 Intake & Output 12/24/18 12/25/18 12/26/18 06:59 06:59 06:59 Intake Total 2351.2 Balance 2351.2 Weight 99.79 kg Weight/Height Weight 99.79 kg Height 5 ft 1 in General appearance: PRESENT: mild distress, morbidly obese Head exam: PRESENT: atraumatic, normocephalic Eye exam: PRESENT: conjunctiva pink, EOMI, PERRLA. ABSENT: scleral icterus Ear exam: PRESENT: normal external ear exam Mouth exam: PRESENT: dry mucosa Respiratory exam: PRESENT: clear to auscultation thomas, tachypnea. ABSENT: rales, rhonchi, wheezes Cardiovascular exam: PRESENT: irregular rhythm, tachycardia Pulses: PRESENT: normal dorsalis pedis pul GI/Abdominal exam: PRESENT: normal bowel sounds, soft. ABSENT: distended, guarding, mass, organolmegaly, rebound, tenderness Rectal exam: PRESENT: deferred Extremities exam: PRESENT: full ROM. ABSENT: calf tenderness, clubbing, pedal edema Musculoskeletal exam: PRESENT: full ROM Neurological exam: PRESENT: alert, altered, awake, oriented to person, oriented to place, oriented to time Psychiatric exam: PRESENT: agitated, anxious Skin exam: PRESENT: dry, intact, warm. ABSENT: cyanosis, rash Laboratory/Radiographs Laboratory Results: 12/25/18 15:03 12/25/18 15:03 12/25/18 12/25/18 12/25/18 15:03 15:03 15:03 WBC 11.6 H RBC 3.91 Hgb 13.5 Hct 38.8 MCV 99 H MCH 34.6 H MCHC 34.8 RDW 13.6 Plt Count 340 Seg Neutrophils % 65.2 Sodium 141.5 Potassium 3.3 L Chloride 98 Carbon Dioxide 13 L Anion Gap 30 H BUN 15 Creatinine 1.40 H Est GFR ( Amer) 48 L Glucose 173 H Calcium 9.3 Magnesium 1.0 L* Total Bilirubin 0.9 AST 119 H Alkaline Phosphatase 202 H Total Protein 9.3 H Albumin 4.9 Lipase 212.0 TSH 2.73 Urine Color Urine Appearance Urine pH Ur Specific [place] Urine Protein Urine Glucose (UA) Urine Ketones Urine Blood Urine Nitrite Ur Leukocyte Esterase Urine WBC (Auto) Urine RBC (Auto) 12/25/18 19:11 WBC RBC Hgb Hct MCV MCH MCHC RDW Plt Count Seg Neutrophils % Sodium Potassium Chloride Carbon Dioxide Anion Gap BUN Creatinine Est GFR ( Amer) Glucose Calcium Magnesium Total Bilirubin AST Alkaline Phosphatase Total Protein Albumin Lipase TSH Urine Color YELLOW Urine Appearance SLIGHTLY-CLOUDY Urine pH 5.0 Ur Specific [place] 1.013 Urine Protein >=500 H Urine Glucose (UA) 50 H Urine Ketones 20 H Urine Blood LARGE H Urine Nitrite NEGATIVE Ur Leukocyte Esterase NEGATIVE Urine WBC (Auto) 3 Urine RBC (Auto) 1 12/25/18 15:03 Troponin I < 0.012 Impressions: Chest X-Ray 12/25/18 17:16 IMPRESSION: NO ACUTE RADIOGRAPHIC FINDING IN THE CHEST. All labs, radiographs, diagnostic studies and EKGs were personally reviewed: Yes In addition, reports of radiographic and diagnostic studies were read: Yes Critical Time Critical Time (minutes): 45 -: The care of a critically ill patient is dynamic. This note represents a static moment in the admission process. orders and treatments may be given simulataneously and urgentl, and time is not outbound sales representative of the treatment process. This patient requires Critical Care secondary to life threating organ or limb dysfunction. Without the need for Critical Care services, the patient is at risk for increasid mortality and morbidity. 45
[2018-12-25] MEDS ORDERED: LORAZEPAM INJ 2 MG/1 ML VIAL ONE ×2 (20:32→20:36)
[2018-12-25] MEDS: NORMAL SALINE 1000 ML 1,000 ML IV PRN (20:49)
[2018-12-25] MEDS: LORAZEPAM 24 MG/240 ML BAG IV PRN (20:50)
[2018-12-25] MEDS ORDERED: DIGOXIN INJ 0.5 MG/2 ML AMPULE ONE (20:56)
[2018-12-25] MEDS ORDERED: MAGNESIUM SULFATE 4 GM/100 ML RTUPB IV ONE (21:00)
[2018-12-25] MEDS: DIGOXIN INJ 0.5 MG/2 ML AMPULE IV SCH (21:04)
[2018-12-25] MEDS: FOLIC ACID 1 MG TABLET PO SCH (21:22)
[2018-12-25] MEDS: CLONIDINE HCL 0.1 MG TABLET PO SCH (21:22)
[2018-12-25] MEDS: ENOXAPARIN SODIUM INJ 40 MG/0.4 ML DISP.SYRIN SUBCUT SCH (21:23)
[2018-12-25] MEDS ORDERED: HEPARIN SOD (PORCINE) 5,000 UNIT/ML 1 ML VIAL SUBCUT SCH (22:00)
[2018-12-25] MEDS ORDERED: INFLUENZA QUAD (6MOS+) 2019-20 VAC 0.5 ML SYR IM ONE (23:33)
[2018-12-26 03:43] LABS: ABSOLUTE BASOPHILS # (AUTO) 0.1 10^3/uL (0.0-0.2); ABSOLUTE LYMPHOCYTES (AUTO) 1.6 10^3/uL (0.5-4.7); ABSOLUTE MONOCYTES (AUTO) 0.8 10^3/uL (0.1-1.4); ABSOLUTE NEUT (AUTO) 5.7 10^3/uL (1.7-8.2); EOSINOPHILS % (AUTO) 0.3 % (0-6); HEMOGLOBIN 11.5 g/dL (12.0-15.5); LYMPHOCYTES % (AUTO) 19.3 % (13-45); MEAN CORPUSCULAR HEMOGLOBIN 34.2 pg (27.0-33.4); MEAN CORPUSCULAR HGB CONC 34.8 g/dL (32.0-36.0); MEAN CORPUSCULAR VOLUME 98 fl (80-97); PLATELET COUNT 203 10^3/uL (150-450); RED BLOOD COUNT 3.36 10^6/uL (3.72-5.28); RED CELL DISTRIBUTION WIDTH 13.6 % (11.5-14.0); SEGMENTED NEUTROPHILS % (AUTO) 69.4 % (42-78); TOTAL CELLS COUNTED % (AUTO) 100 %; WHITE BLOOD COUNT 8.2 10^3/uL (4.0-10.5)
[2018-12-26 04:01] LABS: ANION GAP 10 (5-19); BLOOD UREA NITROGEN 14 mg/dL (7-20); CALCIUM 8.2 mg/dL (8.4-10.2); CARBON DIOXIDE 22 mmol/L (22-30); CHLORIDE 108 mmol/L (98-107); GLUCOSE 122 mg/dL (75-110)
[2018-12-26 04:15] LABS: POTASSIUM 4.4 mmol/L (3.6-5.0)
[2018-12-26] MEDS: DIGOXIN INJ 0.5 MG/2 ML AMPULE IV SCH ×2 (05:01→15:28)
[2018-12-26] MEDS ORDERED: PANTOPRAZOLE SODIUM 40 MG TABLET.DR PO SCH (06:00)
--- NOTE | 2018-12-26 08:01 | PDOC PROGRESS REPORT ---
Subjective Progress Note for:: 12/26/18 Subjective:: Patient is resting now, has been awake, talking but not always oriented. Reason For Visit: ALCOHOL WITHDRAWL,HYPOMAGNESEMIA,HYPOKALEMIA, Physical Exam Vital Signs: Temp Pulse Resp BP Pulse Ox 182 H 31 H 170/91 H 99 12/25/18 20:20 12/26/18 06:00 12/26/18 05:40 12/26/18 06:00 Intake & Output 12/25/18 12/26/18 12/27/18 06:59 06:59 06:59 Intake Total 3490.2 28 Output Total 510 Balance 2980.2 28 Weight 101.6 kg General appearance: PRESENT: no acute distress, disheveled, obese, well- developed, well-nourished Head exam: PRESENT: atraumatic, normocephalic Eye exam: PRESENT: conjunctiva pink, EOMI, PERRLA. ABSENT: scleral icterus Ear exam: PRESENT: normal external ear exam Mouth exam: PRESENT: moist, tongue midline Respiratory exam: PRESENT: clear to auscultation thomas, decreased breath sounds, unlabored Cardiovascular exam: PRESENT: RRR. ABSENT: diastolic murmur, rubs, systolic murmur Vascular exam: PRESENT: normal capillary refill GI/Abdominal exam: PRESENT: normal bowel sounds, soft. ABSENT: distended, guarding, mass, organolmegaly, rebound, tenderness Rectal exam: PRESENT: deferred Gentrourinary exam: PRESENT: indwelling catheter Extremities exam: PRESENT: full ROM Musculoskeletal exam: PRESENT: full ROM, normal inspection Neurological exam: PRESENT: altered, oriented to person Psychiatric exam: PRESENT: agitated Results Laboratory Results: 12/26/18 03:25 12/26/18 03:25 12/25/18 12/25/18 12/25/18 15:03 15:03 15:03 WBC 11.6 H RBC 3.91 Hgb 13.5 Hct 38.8 MCV 99 H MCH 34.6 H MCHC 34.8 RDW 13.6 Plt Count 340 Seg Neutrophils % 65.2 Sodium 141.5 Potassium 3.3 L Chloride 98 Carbon Dioxide 13 L Anion Gap 30 H BUN 15 Creatinine 1.40 H Est GFR ( Amer) 48 L Glucose 173 H Calcium 9.3 Magnesium 1.0 L* Total Bilirubin 0.9 AST 119 H Alkaline Phosphatase 202 H Total Protein 9.3 H Albumin 4.9 Lipase 212.0 TSH 2.73 Urine Color Urine Appearance Urine pH Ur Specific [place] Urine Protein Urine Glucose (UA) Urine Ketones Urine Blood Urine Nitrite Ur Leukocyte Esterase Urine WBC (Auto) Urine RBC (Auto) 12/25/18 12/26/18 12/26/18 19:11 03:25 03:25 WBC 8.2 RBC 3.36 L Hgb 11.5 L Hct 33.0 L MCV 98 H MCH 34.2 H MCHC 34.8 RDW 13.6 Plt Count 203 Seg Neutrophils % 69.4 Sodium 140.2 Potassium 4.4 D Chloride 108 H Carbon Dioxide 22 Anion Gap 10 BUN 14 Creatinine 1.10 Est GFR ( Amer) > 60 Glucose 122 H Calcium 8.2 L Magnesium 2.7 H D Total Bilirubin AST Alkaline Phosphatase Total Protein Albumin Lipase TSH Urine Color YELLOW Urine Appearance SLIGHTLY-CLOUDY Urine pH 5.0 Ur Specific [place] 1.013 Urine Protein >=500 H Urine Glucose (UA) 50 H Urine Ketones 20 H Urine Blood LARGE H Urine Nitrite NEGATIVE Ur Leukocyte Esterase NEGATIVE Urine WBC (Auto) 3 Urine RBC (Auto) 1 12/25/18 15:03 Troponin I < 0.012 Impressions: Chest X-Ray 12/25/18 17:16 IMPRESSION: NO ACUTE RADIOGRAPHIC FINDING IN THE CHEST. Assessment & Plan - Diagnosis (1) Alcohol abuse Is this a current diagnosis for this admission?: Yes Plan: Chronic for many years. Apparently ran out of money to support drinking. This pro s happened before. (2) Alcohol withdrawal Qualifiers: Complication of substance-induced condition: uncomplicated Qualified Code(s): F10.230 - Alcohol dependence with withdrawal, uncomplicated Is this a current diagnosis for this admission?: Yes Plan: Only remaining active issue. She is on an ativan drip at 3mg/hr. Will stop drip after 24 hours an bolus dose for fear of ethylene glycol effect. Protecting airway well. (3) Paroxysmal A-fib Is this a current diagnosis for this admission?: Yes Plan: Patient converted to NSR last night. (4) Acute kidney injury Is this a current diagnosis for this admission?: Yes Plan: Resolved. GRF > 60. (5) COPD (chronic obstructive pulmonary disease) Qualifiers: Emphysema type: unspecified Is this a current diagnosis for this admission?: Yes Plan: Inactive. (6) Hypokalemia Is this a current diagnosis for this admission?: Yes Plan: Again resolved by today's lab work. Check again in AM. (7) Hypomagnesemia Is this a current diagnosis for this admission?: Yes Plan: Resolved by today's lab work (8) Morbid obesity with BMI of 40.0-44.9, adult Is this a current diagnosis for this admission?: Yes Plan: Chronic. Not a factor with CV status at this time. - Time Time Spent with patient: 35 or more minutes Total Critical Time (Minutes): 35 Level of Care: ICU Medications reviewed and adjusted accordingly: Yes Anticipated discharge: Home Within: Other - Inpatient Certification Based on my medical assessment, after consideration of the patient's comorbidities, presenting symptoms, or acuity I expect that the services needed warrant INPATIENT care.: Yes I certify that my determination is in accordance with my understanding of Medicare's requirements for reasonable and necessary INPATIENT services [42 CFR 412.3e].: Yes Medical Necessity: Failure to Improve With Outpatient Therapy, Significant Comorbidiites Make Outpatient Treatment Too Risky, Need Close Monitoring Due to Risk of Patient Decompensation, Need For IV Fluids, Need For Continuous Telemetry Monitoring, Need for Neurological Checks
[2018-12-26] MEDS: ONDANSETRON HCL INJ/PF 4 MG/2 ML SDV IV PRN (09:17)
[2018-12-26] MEDS: LORAZEPAM 24 MG/240 ML BAG IV PRN ×2 (09:21→15:27)
[2018-12-26] MEDS: NORMAL SALINE 1000 ML 1,000 ML IV PRN ×2 (09:22→18:28)
[2018-12-26] MEDS ORDERED: DOCUSATE SODIUM 100 MG CAPSULE PO SCH (10:00)
[2018-12-26] MEDS: PANTOPRAZOLE SODIUM 40 MG TABLET.DR PO SCH (11:15)
[2018-12-26] MEDS: THIAMINE HCL 100 MG TABLET PO SCH (11:16)
[2018-12-26] MEDS: VENLAFAXINE HCL 37.5 MG CAP.SR.24H PO SCH (11:16)
[2018-12-26] MEDS: LISINOPRIL 10 MG TABLET PO SCH (11:16)
[2018-12-26] MEDS: LEVOTHYROXINE SODIUM 0.088 MG TABLET PO SCH (11:16)
[2018-12-26] MEDS: ENOXAPARIN SODIUM INJ 40 MG/0.4 ML DISP.SYRIN SUBCUT SCH (11:17)
[2018-12-26] MEDS: FOLIC ACID 1 MG TABLET PO SCH (11:17)
[2018-12-26] MEDS: CLONIDINE HCL 0.1 MG TABLET PO SCH ×2 (11:17→21:32)
[2018-12-26] MEDS: LORAZEPAM INJ 2 MG/1 ML VIAL IV PRN (21:35)
--- NOTE | 2018-12-26 22:04 | EKG REPORT ---
SEVERITY:- ABNORMAL ECG - ATRIAL FIBRILLATION REPOLARIZATION ABNORMALITY, PROB RATE RELATED BORDERLINE PROLONGED QT INTERVAL : Confirmed by: Hudson Alegria 26-Dec-2018 22:03:42
--- NOTE | 2018-12-26 22:05 | EKG REPORT ---
SEVERITY:- ABNORMAL ECG - SUPRAVENTRICULAR TACHYCARDIA vs A FLUTTER/FIB BORDERLINE INFERIOR Q WAVES REPOLARIZATION ABNORMALITY, PROB RATE RELATED : Confirmed by: Hudson Alegria 26-Dec-2018 22:04:59
[2018-12-27] MEDS: LORAZEPAM INJ 2 MG/1 ML VIAL IV PRN ×4 (00:23→21:06)
[2018-12-27] MEDS: NORMAL SALINE 1000 ML 1,000 ML IV PRN ×2 (05:41→21:12)
[2018-12-27] MEDS: LISINOPRIL 10 MG TABLET PO SCH (09:22)
[2018-12-27] MEDS: PANTOPRAZOLE SODIUM 40 MG TABLET.DR PO SCH (09:22)
[2018-12-27] MEDS: LEVOTHYROXINE SODIUM 0.088 MG TABLET PO SCH (09:22)
[2018-12-27] MEDS: CLONIDINE HCL 0.1 MG TABLET PO SCH ×2 (09:22→21:03)
[2018-12-27] MEDS: THIAMINE HCL 100 MG TABLET PO SCH (09:22)
[2018-12-27] MEDS: FOLIC ACID 1 MG TABLET PO SCH (09:22)
[2018-12-27] MEDS: ENOXAPARIN SODIUM INJ 40 MG/0.4 ML DISP.SYRIN SUBCUT SCH (09:23)
[2018-12-27] MEDS: VENLAFAXINE HCL 37.5 MG CAP.SR.24H PO SCH (09:26)
[2018-12-27] MEDS ORDERED: PHENOBARBITAL 32.4 MG TABLET PO PRN (10:00)
--- NOTE | 2018-12-27 10:12 | PDOC PROGRESS REPORT ---
Subjective Reason For Visit: ALCOHOL WITHDRAWL,HYPOMAGNESEMIA,HYPOKALEMIA, Physical Exam Vital Signs: Temp Pulse Resp BP Pulse Ox 99.7 F 85 19 149/87 H 97 12/27/18 01:45 12/26/18 20:00 12/27/18 06:41 12/27/18 06:41 12/27/18 06:41 Intake & Output 12/26/18 12/27/18 12/28/18 06:59 06:59 06:59 Intake Total 4490.2 1877 Output Total 510 1710 Balance 3980.2 167 Weight 101.6 kg 103.8 kg Results Laboratory Results: 12/26/18 03:25 12/26/18 03:25 12/25/18 15:03 Troponin I < 0.012 Impressions: Chest X-Ray 12/25/18 17:16 IMPRESSION: NO ACUTE RADIOGRAPHIC FINDING IN THE CHEST. Assessment & Plan - Diagnosis (1) Alcohol withdrawal Qualifiers: Complication of substance-induced condition: uncomplicated Qualified Code(s): F10.230 - Alcohol dependence with withdrawal, uncomplicated Is this a current diagnosis for this admission?: Yes Plan: Still withdrawing but more alert, awake, talking more but still altered. "there's a hot dog on the floor." There is not. Getting ativan at 4mg , adding phenobarbitol to supplement the ativan. She will certainly need the ativan. (2) Paroxysmal A-fib Is this a current diagnosis for this admission?: Yes Plan: Resolved (3) Acute kidney injury Is this a current diagnosis for this admission?: Yes Plan: GFR > 60: resolved (4) COPD (chronic obstructive pulmonary disease) Qualifiers: Emphysema type: centrilobular Is this a current diagnosis for this admission?: Yes Plan: Breathing is easier, no wheezing. Stable. (5) Hypokalemia Is this a current diagnosis for this admission?: Yes Plan: Resolved, check levels in AM. (6) Hypomagnesemia Is this a current diagnosis for this admission?: Yes Plan: Level 2.7. Resolved check in AM. (7) Morbid obesity with BMI of 40.0-44.9, adult Is this a current diagnosis for this admission?: Yes Plan: Chronic, no change - Time Time Spent with patient: 35 or more minutes Total Critical Time (Minutes): 35 Level of Care: ICU Medications reviewed and adjusted accordingly: Yes Anticipated discharge: Home Within: Other - Inpatient Certification Based on my medical assessment, after consideration of the patient's comorbidities, presenting symptoms, or acuity I expect that the services needed warrant INPATIENT care.: Yes I certify that my determination is in accordance with my understanding of Medicare's requirements for reasonable and necessary INPATIENT services [42 CFR 412.3e].: Yes Medical Necessity: Failure to Improve With Outpatient Therapy, Significant Comorbidiites Make Outpatient Treatment Too Risky, Need Close Monitoring Due to Risk of Patient Decompensation, Need For Continuous Telemetry Monitoring, Need for Neurological Checks
[2018-12-27] MEDS: ACETAMINOPHEN 325 MG TABLET PO PRN (21:09)
[2018-12-28] MEDS: HYDRALAZINE HCL INJ/PF 20 MG/1 ML SDV IV PRN (04:13)
[2018-12-28] MEDS: LORAZEPAM INJ 2 MG/1 ML VIAL IV PRN ×3 (05:48→21:35)
[2018-12-28] MEDS ORDERED: LORAZEPAM INJ 2 MG/1 ML VIAL IV PRN (08:17)
[2018-12-28] MEDS: THIAMINE HCL 100 MG TABLET PO SCH (09:44)
[2018-12-28] MEDS: LISINOPRIL 10 MG TABLET PO SCH (09:44)
[2018-12-28] MEDS: FOLIC ACID 1 MG TABLET PO SCH (09:45)
[2018-12-28] MEDS: PANTOPRAZOLE SODIUM 40 MG TABLET.DR PO SCH (09:45)
[2018-12-28] MEDS: CLONIDINE HCL 0.1 MG TABLET PO SCH ×2 (09:45→21:35)
[2018-12-28] MEDS: METOPROLOL TARTRATE 25 MG TABLET PO SCH ×2 (09:45→21:34)
[2018-12-28] MEDS: LEVOTHYROXINE SODIUM 0.088 MG TABLET PO SCH (09:48)
[2018-12-28] MEDS: VENLAFAXINE HCL 37.5 MG CAP.SR.24H PO SCH (09:48)
[2018-12-28] MEDS: ENOXAPARIN SODIUM INJ 40 MG/0.4 ML DISP.SYRIN SUBCUT SCH (09:55)
[2018-12-28] MEDS: NORMAL SALINE 1000 ML 1,000 ML IV PRN (10:02)
[2018-12-28] MEDS: DIAZEPAM 5 MG TABLET PO SCH ×3 (12:11→23:42)
--- NOTE | 2018-12-28 12:51 | PDOC PROGRESS REPORT ---
Subjective Progress Note for:: 12/28/18 Subjective:: The patient is a 48-year-old female, well-known to our service, with a past medical history of Chronic alcohol abuse with continuous use and repetitive admissions for acute alcohol intoxication and withdrawal, proximal A. fib, COPD, hypothyroidism, hypertension, depression, and morbid obesity who was admitted by the patrol lady service on 12/25/2018 for acute alcohol intoxication, atrial fibrillation with RVR, and inability to protect airway resulting in and atrial fibrillation with RVR. The patient was seen on morning rounds. She was sitting up in bed, comfortably, on supplemental oxygen by nasal cannula. She was noted to be disheveled, diaphoretic, tremulous, and oriented to self, place, but not year or situation. She reports the year is 1989. She states that she came to the hospital because she was worried about her friend. She does not answer my remaining questions and becomes focused on time of discharge so that she can go home to take care of her pets. ROS is limited due to mental status and patient cooperation, however, she does deny chest pain, palpitations, dyspnea and nausea. No concerns per nursing. Reason For Visit: ALCOHOL WITHDRAWL,HYPOMAGNESEMIA,HYPOKALEMIA, Physical Exam Vital Signs: Temp Pulse Resp BP Pulse Ox 99.0 F 73 16 150/84 H 95 12/28/18 11:05 12/28/18 12:31 12/28/18 12:31 12/28/18 11:05 12/28/18 12:31 Intake & Output 12/27/18 12/28/18 12/29/18 06:59 06:59 06:59 Intake Total 1877 1222 1360 Output Total 1710 1500 Balance 167 -278 1360 Weight 103.8 kg 109.4 kg General appearance: PRESENT: disheveled, mild distress, morbidly obese, well- developed, well-nourished Head exam: PRESENT: atraumatic, normocephalic Eye exam: PRESENT: conjunctiva pink, EOMI, PERRLA. ABSENT: scleral icterus Ear exam: PRESENT: normal external ear exam Mouth exam: PRESENT: moist, tongue midline Respiratory exam: PRESENT: clear to auscultation thomas, prolonged expiratory phas, rhonchi - Slight, symmetrical, tachypnea, other - Supplemental oxygen via nasal cannula. ABSENT: rales, wheezes Cardiovascular exam: PRESENT: RRR, +S1, +S2. ABSENT: diastolic murmur, rubs, systolic murmur Pulses: PRESENT: normal dorsalis pedis pul Vascular exam: PRESENT: normal capillary refill GI/Abdominal exam: PRESENT: normal bowel sounds, soft. ABSENT: distended, g uarding, mass, organolmegaly, rebound, tenderness Rectal exam: PRESENT: deferred Extremities exam: PRESENT: full ROM. ABSENT: calf tenderness, clubbing, pedal edema Neurological exam: PRESENT: alert, awake, oriented to person, oriented to place, CN II-XII grossly intact, other - Tremulous. ABSENT: oriented to time, oriented to situation, motor sensory deficit Psychiatric exam: PRESENT: agitated, normal mood. ABSENT: homicidal ideation, suicidal ideation Skin exam: PRESENT: dry, intact, warm. ABSENT: cyanosis, rash Results Laboratory Results: 12/26/18 03:25 12/26/18 03:25 12/25/18 15:03 Troponin I < 0.012 Impressions: Chest X-Ray 12/25/18 17:16 IMPRESSION: NO ACUTE RADIOGRAPHIC FINDING IN THE CHEST. Assessment and Plan - Diagnosis (1) Alcohol withdrawal Qualifiers: Complication of substance-induced condition: uncomplicated Qualified Code(s): F10.230 - Alcohol dependence with withdrawal, uncomplicated Is this a current diagnosis for this admission?: Yes Plan: Patient with symptoms of acute withdrawal at this time. She is oriented to self and place only. She is noted to be diaphoretic and tremulous. Continue scheduled benzodiazepines. PRN IV Ativan for withdrawal symptoms. Seizure and fall precautions. Folic acid and thiamine supplementation. Discharge planning consulted. (2) Alcohol abuse Is this a current diagnosis for this admission?: Yes Plan: Ongoing; patient was admitted with serum alcohol level of 133. Patient has had multiple admissions for alcohol intoxication and withdrawal. She is asking to discharge today; denies need for substance abuse detox for alcohol rehab. We will continue folic acid and thiamine supplementation. Discharge planning is consulted. (3) ALEJA (acute kidney injury) Is this a current diagnosis for this admission?: Yes Plan: Resolved. Patient admitted with creatinine of 1.40, down to 1.10. Continuing IV fluids. Encourage p.o. fluids. Avoid nephrotoxic medications as able. Daily chemistries. (4) COPD (chronic obstructive pulmonary disease) Qualifiers: Emphysema type: centrilobular Is this a current diagnosis for this admission?: Yes Plan: Stable and without exacerbation at this time. Continue supplemental oxygen as needed to maintain saturations greater than 89%. Continue scheduled as needed nebulizer treatments. No indications for antibiotic or steroid therapy at this time. (5) Hypokalemia Is this a current diagnosis for this admission?: Yes Plan: Replete. Continue to monitor daily chemistries (6) Hypomagnesemia Is this a current diagnosis for this admission?: Yes Plan: Replete. Continue periodic lab follow-up. (7) Morbid obesity with BMI of 40.0-44.9, adult Is this a current diagnosis for this admission?: Yes Plan: BMI of 45.6. Registered dietitian is consulted. Lifestyle and dietary modifications are encouraged. - Time Time Spent with patient: 15-24 minutes Medications reviewed and adjusted accordingly: Yes Anticipated discharge: Home - Inpatient Certification Based on my medical assessment, after consideration of the patient's comorbidities, presenting symptoms, or acuity I expect that the services needed warrant INPATIENT care.: Yes I certify that my determination is in accordance with my understanding of Medicare's requirements for reasonable and necessary INPATIENT services [42 CFR 412.3e].: Yes Medical Necessity: Need Close Monitoring Due to Risk of Patient Decompensation, Need For IV Fluids, Need For Continuous Telemetry Monitoring, Risk of Complication if Not Cared For in Hospital, Risk of Diagnosis Which Will Require Inpatient Eval/Care/Monitoring
[2018-12-29] MEDS: HYDRALAZINE HCL INJ/PF 20 MG/1 ML SDV IV PRN ×2 (01:09→04:30)
[2018-12-29] MEDS: NORMAL SALINE 1000 ML 1,000 ML IV PRN (01:10)
[2018-12-29] MEDS: LORAZEPAM INJ 2 MG/1 ML VIAL IV PRN ×3 (05:08→17:38)
[2018-12-29] MEDS: DIAZEPAM 5 MG TABLET PO SCH ×3 (05:58→21:24)
[2018-12-29 06:43] LABS: HEMATOCRIT 27.9 % (36.0-47.0); HEMOGLOBIN 9.7 g/dL (12.0-15.5); MEAN CORPUSCULAR HEMOGLOBIN 34.7 pg (27.0-33.4); MEAN CORPUSCULAR HGB CONC 34.9 g/dL (32.0-36.0); MEAN CORPUSCULAR VOLUME 100 fl (80-97); PLATELET COUNT 156 10^3/uL (150-450); RED CELL DISTRIBUTION WIDTH 13.1 % (11.5-14.0); WHITE BLOOD COUNT 7.8 10^3/uL (4.0-10.5)
[2018-12-29 07:09] LABS: ANION GAP 10 (5-19); BLOOD UREA NITROGEN 11 mg/dL (7-20); CALCIUM 8.7 mg/dL (8.4-10.2); CARBON DIOXIDE 20 mmol/L (22-30); CHLORIDE 110 mmol/L (98-107); GLUCOSE 89 mg/dL (75-110); PHOSPHORUS 4.6 mg/dL (2.5-4.5); POTASSIUM 4.2 mmol/L (3.6-5.0)
[2018-12-29] MEDS: ACETAMINOPHEN 325 MG TABLET PO PRN ×2 (08:18→17:48)
[2018-12-29] MEDS ORDERED: POTASSIUM CHLORIDE 10 MEQ CAPSULE.ER PO ONE (08:30)
[2018-12-29] MEDS ORDERED: MAGNESIUM SULFATE/D5W 1 GM/100 ML RTUPB IV ONE ×2 (09:00→11:00)
[2018-12-29] MEDS: PANTOPRAZOLE SODIUM 40 MG TABLET.DR PO SCH (10:05)
[2018-12-29] MEDS: METOPROLOL TARTRATE 25 MG TABLET PO SCH ×2 (10:05→21:23)
[2018-12-29] MEDS: THIAMINE HCL 100 MG TABLET PO SCH (10:05)
[2018-12-29] MEDS: CLONIDINE HCL 0.1 MG TABLET PO SCH ×2 (10:05→21:23)
[2018-12-29] MEDS: LISINOPRIL 10 MG TABLET PO SCH (10:05)
[2018-12-29] MEDS: FOLIC ACID 1 MG TABLET PO SCH (10:06)
[2018-12-29] MEDS: VENLAFAXINE HCL 37.5 MG CAP.SR.24H PO SCH (10:06)
[2018-12-29] MEDS: ENOXAPARIN SODIUM INJ 40 MG/0.4 ML DISP.SYRIN SUBCUT SCH (10:06)
[2018-12-29] MEDS: LEVOTHYROXINE SODIUM 0.088 MG TABLET PO SCH (10:06)
--- NOTE | 2018-12-29 10:08 | PDOC PROGRESS REPORT ---
Subjective Progress Note for:: 12/29/18 Subjective:: The patient is a 48-year-old female, well-known to our service, with a past medical history of Chronic alcohol abuse with continuous use and repetitive admissions for acute alcohol intoxication and withdrawal, proximal A. fib, COPD, hypothyroidism, hypertension, depression, and morbid obesity who was admitted by the civil design technician service on 12/25/2018 for acute alcohol intoxication, atrial fibrillation with RVR, and inability to protect airway resulting in and atrial fibrillation with RVR. 12/29/2018. No acute events overnight. Patient comfortably sitting in bed in no apparent distress, enjoying her breakfast. Denies any anxiety, hallucination, formication, fever, chills, nausea, vomiting, diarrhea, constipation or any urinary symptoms. Patient is still on scheduled benzo diazepam and PRN benzodiazepines. Plan is to wean her off and possibly discharge tomorrow or the day after. Reason For Visit: ALCOHOL WITHDRAWL,HYPOMAGNESEMIA,HYPOKALEMIA, Physical Exam Vital Signs: Temp Pulse Resp BP Pulse Ox 98.0 F 73 19 137/86 H 97 12/29/18 03:14 12/29/18 07:00 12/29/18 03:14 12/29/18 05:42 12/29/18 03:14 Intake & Output 12/28/18 12/29/18 12/30/18 06:59 06:59 06:59 Intake Total 1222 3560 Output Total 1500 2200 Balance -278 1360 Weight 109.4 kg 112 kg General appearance: PRESENT: morbidly obese Head exam: PRESENT: atraumatic, normocephalic Respiratory exam: PRESENT: clear to auscultation thomas. ABSENT: rales, rhonchi, wheezes Cardiovascular exam: PRESENT: RRR. ABSENT: diastolic murmur, rubs, systolic murmur GI/Abdominal exam: PRESENT: normal bowel sounds, soft. ABSENT: distended, guarding, mass, organolmegaly, rebound, tenderness Neurological exam: PRESENT: alert, awake, oriented to person, oriented to place, oriented to time, oriented to situation, CN II-XII grossly intact. ABSENT: motor sensory deficit Psychiatric exam: PRESENT: anxious Results Laboratory Results: 12/29/18 06:11 12/29/18 06:11 12/29/18 12/29/18 12/29/18 06:11 06:11 06:11 WBC 7.8 Cancelled RBC 2.80 L Cancelled Hgb 9.7 L Cancelled Hct 27.9 L Cancelled MCV 100 H Cancelled MCH 34.7 H Cancelled MCHC 34.9 Cancelled RDW 13.1 Cancelled Plt Count 156 Cancelled Seg Neutrophils % Not Reportable Cancelled Sodium 140.3 Potassium 4.2 Chloride 110 H Carbon Dioxide 20 L Anion Gap 10 BUN 11 Creatinine 0.84 Est GFR ( Amer) > 60 Est GFR (Non-Af Amer) Glucose 89 Calcium 8.7 Phosphorus 4.6 H Magnesium 1.2 L* Total Bilirubin AST Alkaline Phosphatase Total Protein Albumin 12/29/18 06:11 WBC RBC Hgb Hct MCV MCH MCHC RDW Plt Count Seg Neutrophils % Sodium Cancelled Potassium Cancelled Chloride Cancelled Carbon Dioxide Cancelled Anion Gap Cancelled BUN Cancelled Creatinine Cancelled Est GFR ( Amer) Cancelled Est GFR (Non-Af Amer) Cancelled Glucose Cancelled Calcium Cancelled Phosphorus Magnesium Total Bilirubin Cancelled AST Cancelled Alkaline Phosphatase Cancelled Total Protein Cancelled Albumin Cancelled 12/25/18 15:03 Troponin I < 0.012 Impressions: Chest X-Ray 12/25/18 17:16 IMPRESSION: NO ACUTE RADIOGRAPHIC FINDING IN THE CHEST. Assessment and Plan - Diagnosis (1) Alcohol withdrawal Qualifiers: Complication of substance-induced condition: uncomplicated Qualified Code(s): F10.230 - Alcohol dependence with withdrawal, uncomplicated Is this a current diagnosis for this admission?: Yes Plan: Alert and oriented x3. Mild tremulousness. Denies any auditory or visual hallucinations. Still on scheduled benzodiazepines. Taper down scheduled benzodiazepines. Continue PRN IV Ativan, seizure and fall precautions. Continue folic acid and thiamine supplementation. Possible discharge tomorrow. (2) COPD (chronic obstructive pulmonary disease) Qualifiers: Emphysema type: centrilobular Is this a current diagnosis for this admission?: Yes Plan: Stable. Not on home O2. SPO2 WNL on 2 L. Continue DuoNeb's, supplemental oxygen and PRN BiPAP. No indications for antibiotic or steroid therapy at this time. Evaluate for home O2 requirement. Will discharge on ICS, LABA, LABA. (3) ALEJA (acute kidney injury) Is this a current diagnosis for this admission?: Yes Plan: Resolved. Likely prerenal due to volume depletion caused by excessive alcohol intake. Patient admitted with creatinine of 1.40. DC IV fluids. Encourage p.o. intake. Avoid nephrotoxic meds. Monitor volume status. Monitor electrolytes and replace as needed. Outpatient PCP follow-up. (4) Hypokalemia Is this a current diagnosis for this admission?: Yes Plan: Replete. Continue to monitor daily chemistries (5) Hypomagnesemia Is this a current diagnosis for this admission?: Yes (6) Morbid obesity with BMI of 40.0-44.9, adult Is this a current diagnosis for this admission?: Yes Plan: BMI of 45.6. Registered dietitian is consulted. Lifestyle and dietary modifications are encouraged. (7) Alcohol abuse Is this a current diagnosis for this admission?: Yes Plan: Ongoing; patient was admitted with serum alcohol level of 133. Patient has had multiple admissions for alcohol intoxication and withdrawal. Denies need for substance abuse detox for alcohol rehab.
[2018-12-29 10:11] LABS: ALBUMIN 3.2 g/dL (3.5-5.0); ALKALINE PHOSPHATASE 88 U/L (38-126); ASPARTATE AMINO TRANSFERASE 31 U/L (14-36); BILIRUBIN,DIRECT 0.2 mg/dL (0.0-0.4); BILIRUBIN,TOTAL 0.5 mg/dL (0.2-1.3); TOTAL PROTEIN 6.4 g/dL (6.3-8.2)
[2018-12-29 10:40] LABS: ABSOLUTE LYMPHOCYTES# (MANUAL) 1.7 10^3/uL (0.5-4.7); ABSOLUTE MONOCYTES # (MANUAL) 0.5 10^3/uL (0.1-1.4); BASOPHILS % (MANUAL) 0 % (0-2); EOSINOPHILS % (MANUAL) 2 % (0-6); LYMPHOCYTES % (MANUAL) 22 % (13-45); MONOCYTES % (MANUAL) 6 % (3-13); SEGMENTED NEUTROPHILS % (MAN) 70 % (42-78); TOTAL CELLS COUNTED 100
[2018-12-29 10:52] LABS: PLATELET COMMENT ADEQUATE; POLYCHROMASIA SLIGHT
[2018-12-29 11:20] LABS: ALKALINE PHOSPHATASE 87 U/L (38-126); ANION GAP 8 (5-19); ASPARTATE AMINO TRANSFERASE 29 U/L (14-36); BILIRUBIN,DIRECT 0.1 mg/dL (0.0-0.4); BILIRUBIN,TOTAL 0.4 mg/dL (0.2-1.3); BLOOD UREA NITROGEN 11 mg/dL (7-20); CALCIUM 8.6 mg/dL (8.4-10.2); CARBON DIOXIDE 21 mmol/L (22-30); CHLORIDE 107 mmol/L (98-107); GLUCOSE 103 mg/dL (75-110); POTASSIUM 3.9 mmol/L (3.6-5.0); TOTAL PROTEIN 6.2 g/dL (6.3-8.2)
--- NOTE | 2018-12-29 15:48 | XCELERA REPORT ---
[address] [address] Transthoracic Echocardiogram Report Name: FABIANA HEAD Age: 48 yrs Gender: Female : 1970 Patient Status: Inpatient Patient Location: [address] [place], [place] [id number] Study Date: 12/28/2018 09:58 AM Height: 61 in Weight: 220 lb BSA: 2.0 m2 Procedure: A two-dimensional transthoracic echocardiogram with color flow and Doppler was performed. The study was technically difficult with many images being suboptimal in quality. Reason For Study: Rapid AF, Holiday heart syndrome? History: Rapid AF, Holiday heart syndrome?. Ordering Physician: MARYSOL VIDAL Performed By: Kika Ma Interpretation Summary The left ventricle is normal in size. There is normal left ventricular wall thickness. LV EF is 65% Left ventricular systolic function is normal. Doppler measurements suggest impaired left ventricular relaxation, which is associated with grade I/IV or mild diastolic dysfunction The left ventricular wall motion is normal. There is no thrombus. Probably no ASD , VSD 0r PFO seen. The right ventricle is grossly normal size. The right ventricle is not well visualized secondary to technical limitations The right atrium is normal. The left atrial size is normal. There is no evidence of mitral valve prolapse. There is no vegetation seen on the mitral valve. There is no mitral valve stenosis. There is a trace amount of mitral regurgitation The aortic valve is not well visualized secondary to technical limitations There is mild aortic stenosis There is a peak gradient of 17.5 mm of Hg. No hemodynamically significant valvular aortic stenosis. There is no LVOT obstruction. No aortic regurgitation is present. There is no tricuspid stenosis. There is a trace amount of tricuspid regurgitation No Significant pulmonary Hypertension.RVSP is 31 mm of Hg , and just above the upper normal limits. There is no pulmonic valvular stenosis. There is no pulmonic valvular regurgitation. The aortic root is normal size. The inferior vena cava was not well visualized There is no pericardial effusion. MMode/2D Measurements & Calculations RVDd: 2.7 cm LVIDd: 4.9 cm FS: 34.3 % Ao root diam: 2.7 cm IVSd: 0.79 cm LVIDs: 3.2 cm EDV(Teich): 115.0 ml Ao root area: 5.8 cm2 LVPWd: 1.1 cm ESV(Teich): 42.5 ml EF(Teich): 63.1 % Doppler Measurements & Calculations MV E max soco: MV dec slope: Ao V2 max: LV V1 max P.8 cm/sec 825.3 cm/sec2 209.5 cm/sec 7.2 mmHg MV A max soco: MV dec time: Ao max PG: LV V1 max: 110.4 cm/sec 0.12 sec 17.5 mmHg 134.4 cm/sec MV E/A: 0.93 PA V2 max: PI end-d soco: TR max soco: 139.9 cm/sec 89.1 cm/sec 229.6 cm/sec PA max P.8 mmHg TR max P.1 mmHg Left Ventricle The left ventricle is normal in size. There is normal left ventricular wall thickness. LV EF is 65%. Left ventricular systolic function is normal. Doppler measurements suggest impaired left ventricular relaxation, which is associated with grade I/IV or mild diastolic dysfunction. The left ventricular wall motion is normal. There is no thrombus. Probably no ASD , VSD 0r PFO seen. Right Ventricle The right ventricle is grossly normal size. The right ventricle is not well visualized secondary to technical limitations. Atria The right atrium is normal. The left atrial size is normal. Mitral Valve There is no evidence of mitral valve prolapse. There is no vegetation seen on the mitral valve. There is no mitral valve stenosis. There is a trace amount of mitral regurgitation. Aortic Valve The aortic valve is not well visualized secondary to technical limitations. There is mild aortic stenosis. There is a peak gradient of 17.5 mm of Hg. No hemodynamically significant valvular aortic stenosis. There is no LVOT obstruction. No aortic regurgitation is present. Tricuspid Valve There is no tricuspid stenosis. There is a trace amount of tricuspid regurgitation. No Significant pulmonary Hypertension.RVSP is 31 mm of Hg , and just above the upper normal limits. Pulmonic Valve There is no pulmonic valvular stenosis. There is no pulmonic valvular regurgitation. Great Vessels The aortic root is normal size. The inferior vena cava was not well visualized. Effusions There is no pericardial effusion. : MARYSOL VIDAL Lakshmi
[2018-12-29] MEDS: MAGNESIUM OXIDE 400 MG TABLET PO SCH (17:35)
[2018-12-30] MEDS: LORAZEPAM INJ 2 MG/1 ML VIAL IV PRN (01:15)
[2018-12-30] MEDS: HYDRALAZINE HCL INJ/PF 20 MG/1 ML SDV IV PRN (08:18)
[2018-12-30] MEDS ORDERED: MAGNESIUM SULFATE/D5W 1 GM/100 ML RTUPB IV ONE (09:30)
[2018-12-30] MEDS ORDERED: HYDROCHLOROTHIAZIDE 25 MG TABLET PO SCH (10:00)
[2018-12-30] MEDS: THIAMINE HCL 100 MG TABLET PO SCH (10:10)
[2018-12-30] MEDS: FOLIC ACID 1 MG TABLET PO SCH (10:10)
[2018-12-30] MEDS: LISINOPRIL 10 MG TABLET PO SCH (10:10)
[2018-12-30] MEDS: METOPROLOL TARTRATE 25 MG TABLET PO SCH (10:10)
[2018-12-30] MEDS: PANTOPRAZOLE SODIUM 40 MG TABLET.DR PO SCH (10:10)
[2018-12-30] MEDS: DIAZEPAM 5 MG TABLET PO SCH (10:10)
[2018-12-30] MEDS: MAGNESIUM OXIDE 400 MG TABLET PO SCH (10:10)
[2018-12-30] MEDS: CLONIDINE HCL 0.1 MG TABLET PO SCH (10:11)
[2018-12-30] MEDS: VENLAFAXINE HCL 37.5 MG CAP.SR.24H PO SCH (10:11)
[2018-12-30] MEDS: LEVOTHYROXINE SODIUM 0.088 MG TABLET PO SCH (10:11)
[2018-12-30] MEDS: ENOXAPARIN SODIUM INJ 40 MG/0.4 ML DISP.SYRIN SUBCUT SCH (10:23)
[2018-12-30] MEDS: ACETAMINOPHEN 325 MG TABLET PO PRN (13:24)
[2018-12-30 15:05] LABS: ANION GAP 10 (5-19); BLOOD UREA NITROGEN 12 mg/dL (7-20); CALCIUM 9.1 mg/dL (8.4-10.2); CARBON DIOXIDE 23 mmol/L (22-30); CHLORIDE 101 mmol/L (98-107); GLUCOSE 103 mg/dL (75-110); POTASSIUM 3.9 mmol/L (3.6-5.0)
[2018-12-30 15:27] VITALS: BP 162/94
[2018-12-30] MEDS ORDERED: MAGNESIUM OXIDE 400 MG TABLET PO ONE (16:00)
--- NOTE | 2019-01-03 14:53 | PDOC DISCHARGE SUMMARY ---
Impression - Admit/DC Date/PCP Admission Date/Primary Care Provider: 12/25/18 18:02 BERNIE SAVAGE MD Discharge Date: 12/30/18 - Discharge Diagnosis (1) Alcohol withdrawal Is this a current diagnosis for this admission?: Yes (2) COPD (chronic obstructive pulmonary disease) Is this a current diagnosis for this admission?: Yes (3) ALEJA (acute kidney injury) Is this a current diagnosis for this admission?: Yes (4) Hypokalemia Is this a current diagnosis for this admission?: Yes (5) Hypomagnesemia Is this a current diagnosis for this admission?: Yes (6) Morbid obesity with BMI of 40.0-44.9, adult Is this a current diagnosis for this admission?: Yes (7) Alcohol abuse Is this a current diagnosis for this admission?: Yes - Additional Information Resuscitation Status: Full Code Discharge Diet: As Tolerated Discharge Activity: Activity As Tolerated, Balance Activity w/Rest, Energy Conservation, No Lifting Over 10 Pounds Referrals: BERNIE SAVAGE MD [Primary Care Provider] - 01/07/19 10:45 am Prescriptions: Magnesium Oxide [Diasense Magnesium] 400 mg PO BID 14 Days #21 tablet Home Medications: Albuterol Sulfate [Proair HFA Inhalation Aerosol 8.5 gm MDI] 2 puff IH Q4HP PRN 12/25/18 Alprazolam [Xanax] 0.5 mg PO Q8HP PRN 12/25/18 Clonidine HCl [Catapres 0.1 mg Tablet] 0.1 mg PO Q12 12/25/18 Folic Acid [Folvite 1 mg Tablet] 1 mg PO DAILY 12/25/18 Hydrochlorothiazide [Hydrodiuril 25 mg Tablet] 25 mg PO DAILY 12/25/18 Ibuprofen [Motrin 600 mg Tablet] 600 mg PO TID 12/25/18 Levothyroxine Sodium [Synthroid 0.088 mg Tablet] 0.088 mg PO DAILY 12/25/18 Lisinopril [Prinivil 10 mg Tablet] 10 mg PO DAILY 12/25/18 Metoprolol Tartrate [Lopressor 25 mg Tablet] 25 mg PO Q12 12/25/18 Omeprazole 40 mg PO DAILY 12/25/18 Potassium Chloride [K-Tab ER] 20 meq PO BID 12/25/18 Venlafaxine HCl ER [Effexor Xr 37.5 mg Cap.sr] 37.5 mg PO DAILY 12/25/18 Magnesium Oxide [Diasense Magnesium] 400 mg PO BID 14 Days #21 tablet 12/30/18 History of Present Illiness History of Present Illness: The patient is a 48-year-old female, well-known to our service, with a past medical history of Chronic alcohol abuse with continuous use and repetitive admissions for acute alcohol intoxication and withdrawal, proximal A. fib, COPD, hypothyroidism, hypertension, depression, and morbid obesity who was admitted by the training and development rep service on 12/25/2018 for acute alcohol intoxication, atrial fibrillation with RVR, and inability to protect airway resulting in and atrial fibrillation with RVR. Hospital Course Hospital Course: (1) Alcohol withdrawal Alert and oriented x3. Denied any auditory or visual hallucinations. Was admitted to ICU, on PRN IV Ativan, seizure and fall precautions and folic acid and thiamine supplementation. (2) COPD (chronic obstructive pulmonary disease) Stable. Not on home O2. SPO2 WNL on RA. No need for home O2 Continued DuoNeb's, supplemental oxygen and PRN BiPAP. No indications for antibiotic or steroid therapy at this time. (3) ALEJA (acute kidney injury) Resolved. Likely prerenal due to volume depletion caused by excessive alcohol intake. Patient admitted with creatinine of 1.40. Was stated on IV fluids. Encouraged p.o. intake. Avoided nephrotoxic meds. (4) Hypokalemia Resovled. Daily chemistries. Replaced as needed. (5) Hypomagnesemia Resolved. Daily chemistries. Replaced as needed. (6) Morbid obesity with BMI of 40.0-44.9, adult BMI of 45.6. Registered dietitian is consulted. Lifestyle and dietary modifications are encouraged. (7) Alcohol abuse Ongoing; patient was admitted with serum alcohol level of 133. Patient has had multiple admissions for alcohol intoxication and withdrawal. Denies need for substance abuse detox for alcohol rehab. Physical Exam Vital Signs: Temp Pulse Resp BP Pulse Ox 97.7 F 75 18 162/94 H 94 12/30/18 15:23 12/30/18 15:23 12/30/18 15:23 12/30/18 15:23 12/30/18 15:23 General appearance: PRESENT: morbidly obese Respiratory exam: PRESENT: clear to auscultation thomas. ABSENT: rales, rhonchi, wheezes Cardiovascular exam: PRESENT: RRR. ABSENT: diastolic murmur, rubs, systolic murmur GI/Abdominal exam: PRESENT: normal bowel sounds, soft. ABSENT: distended, guarding, mass, organolmegaly, rebound, tenderness Neurological exam: PRESENT: alert, awake, oriented to person, oriented to place, oriented to time, oriented to situation, CN II-XII grossly intact. ABSENT: motor sensory deficit Results Laboratory Results: WBC 7.8 10^3/uL (4.0-10.5) 12/29/18 06:11 WBC Cancelled 12/29/18 06:11 RBC 2.80 10^6/uL (3.72-5.28) L 12/29/18 06:11 RBC Cancelled 12/29/18 06:11 Hgb 9.7 g/dL (12.0-15.5) L 12/29/18 06:11 Hgb Cancelled 12/29/18 06:11 Hct 27.9 % (36.0-47.0) L 12/29/18 06:11 Hct Cancelled 12/29/18 06:11 MCV 100 fl (80-97) H 12/29/18 06:11 MCV Cancelled 12/29/18 06:11 MCH 34.7 pg (27.0-33.4) H 12/29/18 06:11 MCH Cancelled 12/29/18 06:11 MCHC 34.9 g/dL (32.0-36.0) 12/29/18 06:11 MCHC Cancelled 12/29/18 06:11 RDW 13.1 % (11.5-14.0) 12/29/18 06:11 RDW Cancelled 12/29/18 06:11 Plt Count 156 10^3/uL (150-450) 12/29/18 06:11 Plt Count Cancelled 12/29/18 06:11 Lymph % (Auto) Cancelled 12/29/18 06:11 Lymph % (Auto) Not Reportable 12/29/18 06:11 [place] % (Auto) Cancelled 12/29/18 06:11 [place] % (Auto) Not Reportable 12/29/18 06:11 Eos % (Auto) Cancelled 12/29/18 06:11 Eos % (Auto) Not Reportable 12/29/18 06:11 Baso % (Auto) Cancelled 12/29/18 06:11 Baso % (Auto) Not Reportable 12/29/18 06:11 Absolute Neuts (auto) Cancelled 12/29/18 06:11 Absolute Neuts (auto) Not Reportable 12/29/18 06:11 Absolute Lymphs (auto) Cancelled 12/29/18 06:11 Absolute Lymphs (auto) Not Reportable 12/29/18 06:11 Absolute Monos (auto) Cancelled 12/29/18 06:11 Absolute Monos (auto) Not Reportable 12/29/18 06:11 Absolute Eos (auto) Cancelled 12/29/18 06:11 Absolute Eos (auto) Not Reportable 12/29/18 06:11 Absolute Basos (auto) Cancelled 12/29/18 06:11 Absolute Basos (auto) Not Reportable 12/29/18 06:11 Total Counted 100 12/29/18 06:11 Seg Neutrophils % Cancelled 12/29/18 06:11 Seg Neutrophils % Not Reportable 12/29/18 06:11 Seg Neuts % (Manual) 70 % (42-78) 12/29/18 06:11 Lymphocytes % (Manual) 22 % (13-45) 12/29/18 06:11 Monocytes % (Manual) 6 % (3-13) 12/29/18 06:11 Eosinophils % (Manual) 2 % (0-6) 12/29/18 06:11 Basophils % (Manual) 0 % (0-2) 12/29/18 06:11 Abs Neuts (Manual) 5.5 10^3/uL (1.7-8.2) 12/29/18 06:11 Abs Lymphs (Manual) 1.7 10^3/uL (0.5-4.7) 12/29/18 06:11 Abs Monocytes (Manual) 0.5 10^3/uL (0.1-1.4) 12/29/18 06:11 Absolute Eos (Manual) 0.2 10^3/uL (0.0-0.6) 12/29/18 06:11 Abs Basophils (Manual) 0.0 10^3/uL (0.0-0.2) 12/29/18 06:11 Platelet Estimate Cancelled 12/29/18 06:11 Platelet Comment ADEQUATE 12/29/18 06:11 Polychromasia SLIGHT 12/29/18 06:11 Macrocytosis SLIGHT 12/29/18 06:11 Sodium 134.1 mmol/L (137-145) L 12/30/18 13:51 Potassium 3.9 mmol/L (3.6-5.0) 12/30/18 13:51 Chloride 101 mmol/L (98-107) 12/30/18 13:51 Carbon Dioxide 23 mmol/L (22-30) 12/30/18 13:51 Anion Gap 10 (5-19) 12/30/18 13:51 BUN 12 mg/dL (7-20) 12/30/18 13:51 Creatinine 0.88 mg/dL (0.52-1.25) 12/30/18 13:51 Est GFR ( Amer) > 60 (>60) 12/30/18 13:51 Est GFR (Non-Af Amer) Cancelled 12/29/18 06:11 Est GFR (MDRD) Non-Af > 60 (>60) 12/30/18 13:51 Glucose 103 mg/dL (75-110) 12/30/18 13:51 Calcium 9.1 mg/dL (8.4-10.2) 12/30/18 13:51 Phosphorus 4.6 mg/dL (2.5-4.5) H 12/29/18 06:11 Magnesium 1.4 mg/dL (1.6-2.3) L 12/30/18 13:51 Total Bilirubin 0.4 mg/dL (0.2-1.3) 12/29/18 10:46 Direct Bilirubin 0.1 mg/dL (0.0-0.4) 12/29/18 10:46 Neonat Total Bilirubin Not Reportable 12/29/18 10:46 Neonat Direct Bilirubin Not Reportable 12/29/18 10:46 Neonat Indirect Bili Not Reportable 12/29/18 10:46 AST 29 U/L (14-36) 12/29/18 10:46 ALT 23 U/L (<35) 12/29/18 10:46 Alkaline Phosphatase 87 U/L (38-126) 12/29/18 10:46 Troponin I < 0.012 ng/mL 12/25/18 15:03 Total Protein 6.2 g/dL (6.3-8.2) L 12/29/18 10:46 Albumin 3.0 g/dL (3.5-5.0) L 12/29/18 10:46 Lipase 212.0 U/L (23-300) 12/25/18 15:03 EGFR Cancelled 12/29/18 06:11 TSH 2.73 uIU/mL (0.47-4.68) 12/25/18 15:03 Urine Color YELLOW 12/25/18 19:11 Urine Appearance SLIGHTLY-CLOUDY 12/25/18 19:11 Urine pH 5.0 (5.0-9.0) 12/25/18 19:11 Ur Specific [place] 1.013 12/25/18 19:11 Urine Protein >=500 mg/dL (NEGATIVE) H 12/25/18 19:11 Urine Glucose (UA) 50 mg/dL (NEGATIVE) H 12/25/18 19:11 Urine Ketones 20 mg/dL (NEGATIVE) H 12/25/18 19:11 Urine Blood LARGE (NEGATIVE) H 12/25/18 19:11 Urine Nitrite NEGATIVE (NEGATIVE) 12/25/18 19:11 Urine Bilirubin NEGATIVE (NEGATIVE) 12/25/18 19:11 Urine Urobilinogen NEGATIVE mg/dL (<2.0) 12/25/18 19:11 Ur Leukocyte Esterase NEGATIVE (NEGATIVE) 12/25/18 19:11 Urine WBC (Auto) 3 /HPF 12/25/18 19:11 Urine RBC (Auto) 1 /HPF 12/25/18 19:11 U Hyaline Cast (Auto) 8 /LPF 12/25/18 19:11 Urine Bacteria (Auto) 1+ /HPF 12/25/18 19:11 Squamous Epi Cells Auto <1 /HPF 12/25/18 19:11 Urine Mucus (Auto) RARE /LPF 12/25/18 19:11 Urine Ascorbic Acid NEGATIVE (NEGATIVE) 12/25/18 19:11 Urine Opiates Screen NEGATIVE 12/25/18 19:11 Urine Methadone Screen NEGATIVE 12/25/18 19:11 Ur Barbiturates Screen NEGATIVE 12/25/18 19:11 Ur Phencyclidine Scrn NEGATIVE 12/25/18 19:11 Ur Amphetamines Screen NEGATIVE 12/25/18 19:11 U Benzodiazepines Scrn UNCONFIRMED POSITIVE 12/25/18 19:11 Urine Cocaine Screen NEGATIVE 12/25/18 19:11 U Marijuana (THC) Screen NEGATIVE 12/25/18 19:11 Serum Alcohol 133 mg/dL (NONE DETECTED) 12/25/18 15:03 Slides for Path Review Cancelled 12/29/18 06:11 12/25/18 15:03 Troponin I < 0.012 Impressions: Chest X-Ray 12/25/18 17:16 IMPRESSION: NO ACUTE RADIOGRAPHIC FINDING IN THE CHEST. Stroke Is this a Stroke Patient?: No Acute Heart Failure - Is this a Heart Failure Patient?: No
== END 2018-12-30 15:49 | disposition home or self-care (01) | DRG 897 ==
LOC: ER 15:35 → EH 18:02 → ICU 20:05 → 3N 12-27 20:03
PROVIDERS: ADMIT Anesthesiology; ATTEND Anesthesiology
DX: F10.239 Alcohol dependence with withdrawal, unspecified (principal); N17.9 Acute kidney failure, unspecified; Z68.41 Body mass index [BMI] 40.0-44.9, adult; I10 Essential (primary) hypertension; E78.5 Hyperlipidemia, unspecified; E03.9 Hypothyroidism, unspecified; K21.9 Gastro-esophageal reflux disease without esophagitis; J43.2 Centrilobular emphysema; I48.0 Paroxysmal atrial fibrillation; E83.42 Hypomagnesemia; E87.6 Hypokalemia; E66.01 Morbid (severe) obesity due to excess calories; Y90.6 Blood alcohol level of 120-199 mg/100 ml; I25.2 Old myocardial infarction; Z79.51 Long term (current) use of inhaled steroids; Z79.899 Other long term (current) drug therapy
CPT/HCPCS: 36415; 71045; 80048; 80053; 80307; 81001; 83690; 83735; 84100; 84443; 84484; 85025; 87070; 93005; 93010; 93306; 96361; 96365; 96368; 96375; 96376; 99231; 99285; 99291; J0360; J1160; J1650; J2060; J2405; J2765; J3411; J3475; J3480; J3490; J7030; J7050

== ENCOUNTER 2019-01-15 01:21 | Inpatient (IN) | payer MEDICARE, MEDICAID ==
--- NOTE | 2019-01-15 02:15 | ER Document Report ---
ED Cardiac - General Chief Complaint: Chest Wall Pain Stated Complaint: CHEST PAIN Time Seen by Provider: 01/15/19 01:58 Primary Care Provider: BERNIE SAVAGE MD [Primary Care Provider] - Follow up as needed Mode of Arrival: Ambulatory Information source: Patient Notes: Patient is a 48-year-old female presenting to the emergency department via EMS with chief complaint of chest pain that began after getting in an argument with her daughter. Patient reports history of EtOH abuse, states she had a pint of vodka today and stopped drinking at about noon. Patient denies any radiation of the pain when it was present. She denies any nausea, vomiting or shortness of breath. She states she thinks it was her anxiety. At the time of arrival she denies any chest pain. TRAVEL OUTSIDE OF THE [place] 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 Denies: Hx Migraine, Hx Parkinson's Disease Endocrine Medical History: Reports: Hx Hypothyroidism. Denies: Hx Diabetes Mellitus Type 1, Hx Diabetes Mellitus Type 2, Hx Hyperthyroidism Renal/ Medical History: Denies: Hx End Stage Renal Disease, Hx Peritoneal Diamond lysis GI Medical History: Reports: Hx Gastroesophageal Reflux Disease. Denies: Hx Cirrhosis, Hx Crohn's Disease, Hx Hepatitis, Hx Hiatal Hernia, Hx Pancreatitis, Hx Ulcer, Hx Ulcerative Colitis Musculoskeletal Medical History: Denies Hx Arthritis, Denies Hx Fibromyalgia Skin Medical History: Denies Hx Eczema, Denies Hx Psoriasis Psychiatric Medical History: Reports: Hx Bipolar Disorder, Hx Depression Denies: Hx Schizophrenia Traumatic Medical History: Reports: Hx Fractures - R. leg. Pt. has a steel debi. Infectious Medical History: Denies: Hx Hepatitis Past Surgical History: Reports: Hx Appendectomy, Hx Cholecystectomy, Hx Orthopedic Surgery - right knee, Hx Tonsillectomy, Hx Tubal Ligation. Denies: Hx Bowel Surgery, Hx Section, Hx Hysterectomy, Hx Mastectomy - Immunizations Hx Diphtheria, Pertussis, Tetanus Vaccination: No Hx Pneumococcal Vaccination: 05/05/11 Review of Systems - Review of Systems Constitutional: No symptoms reported EENT: No symptoms reported Cardiovascular: Chest pain Respiratory: No symptoms reported Gastrointestinal: No symptoms reported Genitourinary: No symptoms reported Female Genitourinary: No symptoms reported Musculoskeletal: No symptoms reported Skin: No symptoms reported Hematologic/Lymphatic: No symptoms reported Neurological/Psychological: Anxiety Physical Exam - Vital signs Vitals: Resp 01/15/19 01:27 - Notes Notes: PHYSICAL EXAMINATION: GENERAL: Disheveled, well-nourished and in no acute distress. HEAD: Atraumatic, normocephalic. EYES: Pupils equal round and reactive to light, extraocular movements intact, conjunctiva are normal. ENT: Nares patent, oropharynx clear without exudates. Moist mucous membranes. NECK: Normal range of motion, supple without lymphadenopathy LUNGS: Breath sounds clear to auscultation bilaterally and equal. No wheezes rales or rhonchi. HEART: Regular rate and rhythm without murmurs ABDOMEN: Soft, nontender, nondistended abdomen. No guarding, no rebound. No masses appreciated. Female : No CVA tenderness. Musculoskeletal: Normal range of motion, no pitting or edema. No cyanosis. NEUROLOGICAL: Cranial nerves grossly intact. Normal speech. Normal sensory, motor exams PSYCH: Normal mood, normal affect. SKIN: Warm, Dry, normal turgor, no rashes or lesions noted. Course - Re-evaluation Re-evalutation: Laboratory 01/15/19 01/15/19 01/15/19 02:25 02:25 02:25 WBC 7.0 RBC 3.04 L Hgb 10.2 L Hct 29.8 L MCV 98 H MCH 33.6 H MCHC 34.3 RDW 13.7 Plt Count 214 Lymph % (Auto) 44.0 [place] % (Auto) 12.6 Eos % (Auto) 2.6 Baso % (Auto) 1.2 Absolute Neuts (auto) 2.8 Absolute Lymphs (auto) 3.1 Absolute Monos (auto) 0.9 Absolute Eos (auto) 0.2 Absolute Basos (auto) 0.1 Seg Neutrophils % 39.6 L Sodium 133.7 L Potassium 4.1 Chloride 100 Carbon Dioxide 17 L Anion Gap 17 BUN 41 H Creatinine 3.75 H Est GFR ( Amer) 16 L Est GFR (MDRD) Non-Af 13 L Glucose 105 Calcium 7.7 L Magnesium Total Bilirubin 0.3 Direct Bilirubin 0.2 Neonat Total Bilirubin Not Reportable Neonat Direct Bilirubin Not Reportable Neonat Indirect Bili Not Reportable AST 27 ALT 17 Alkaline Phosphatase 71 Troponin I 0.069 Total Protein 7.2 Albumin 3.5 Serum Alcohol 01/15/19 01/15/19 02:35 04:55 WBC RBC Hgb Hct MCV MCH MCHC RDW Plt Count Lymph % (Auto) [place] % (Auto) Eos % (Auto) Baso % (Auto) Absolute Neuts (auto) Absolute Lymphs (auto) Absolute Monos (auto) Absolute Eos (auto) Absolute Basos (auto) Seg Neutrophils % Sodium Potassium Chloride Carbon Dioxide Anion Gap BUN Creatinine Est GFR ( Amer) Est GFR (MDRD) Non-Af Glucose Calcium Magnesium 1.3 L Total Bilirubin Direct Bilirubin Neonat Total Bilirubin Neonat Direct Bilirubin Neonat Indirect Bili AST ALT Alkaline Phosphatase Troponin I 0.069 Total Protein Albumin Serum Alcohol 244 Chest X-Ray 01/15/19 02:15 IMPRESSION: No acute cardiopulmonary process copyright 2011 [employer]- All Rights Reserved EKG shows a sinus rhythm, rate of 70, QTc 480, no change from previous EKG on file. Troponin was elevated however I think this is secondary to the acute renal failure. Patient receiving IV fluid at this time. Patient remains asymptomatic and chest pain-free. She has had soft blood pressures in the 90s systolic but has maintained maps in the mid 60s. Repeat troponin is unchanged. I did discuss case with Dr. Briscoe. Alcohol level is elevated at 244. Magnesium level added on at 0700 to blood that was drawn previously. Patient also has a low magnesium level. Will initiate IV magnesium replacement. Will call for admission. Patient accepted for admission by CARLYN Sotelo. He will come to see patient. - Vital Signs Vital signs: Temp Pulse Resp BP Pulse Ox 97.4 F 15 85/40 L 99 01/15/19 01:28 01/15/19 07:00 01/15/19 06:00 01/15/19 07:00 - Laboratory Result Diagrams: 01/15/19 02:25 01/15/19 02:25 Laboratory results interpreted by me: 01/15/19 01/15/19 01/15/19 02:25 02:25 02:35 RBC 3.04 L Hgb 10.2 L Hct 29.8 L MCV 98 H MCH 33.6 H Seg Neutrophils % 39.6 L Sodium 133.7 L Carbon Dioxide 17 L BUN 41 H Creatinine 3.75 H Est GFR ( Amer) 16 L Est GFR (MDRD) Non-Af 13 L Calcium 7.7 L Magnesium 1.3 L Discharge - Discharge Clinical Impression: Hypomagnesemia, Hypocalcemia, Left-sided chest wall pain, Alcohol abuse Acute renal failure Qualifiers: Acute renal failure type: unspecified Qualified Code(s): N17.9 - Acute kidney failure, unspecified Alcohol intoxication Qualifiers: Complication of substance-induced condition: uncomplicated Qualified Code(s): F10.920 - Alcohol use, unspecified with intoxication, uncomplicated Condition: Fair Disposition: ADMITTED INPATIENT Admitting Provider: Job (Hospitalist) Unit Admitted: IMCU Referrals: BERNIE SAVAGE MD [Primary Care Provider] - Follow up as needed
[2019-01-15 02:34] LABS: ABSOLUTE BASOPHILS # (AUTO) 0.1 10^3/uL (0.0-0.2); ABSOLUTE EOSINOPHILS # (AUTO) 0.2 10^3/uL (0.0-0.6); ABSOLUTE LYMPHOCYTES (AUTO) 3.1 10^3/uL (0.5-4.7); ABSOLUTE MONOCYTES (AUTO) 0.9 10^3/uL (0.1-1.4); ABSOLUTE NEUT (AUTO) 2.8 10^3/uL (1.7-8.2); BASOPHILS % (AUTO) 1.2 % (0-2); EOSINOPHILS % (AUTO) 2.6 % (0-6); HEMATOCRIT 29.8 % (36.0-47.0); HEMOGLOBIN 10.2 g/dL (12.0-15.5); MEAN CORPUSCULAR HEMOGLOBIN 33.6 pg (27.0-33.4); MEAN CORPUSCULAR HGB CONC 34.3 g/dL (32.0-36.0); MEAN CORPUSCULAR VOLUME 98 fl (80-97); MONOCYTES % (AUTO) 12.6 % (3-13); PLATELET COUNT 214 10^3/uL (150-450); RED BLOOD COUNT 3.04 10^6/uL (3.72-5.28); RED CELL DISTRIBUTION WIDTH 13.7 % (11.5-14.0); SEGMENTED NEUTROPHILS % (AUTO) 39.6 % (42-78); TOTAL CELLS COUNTED % (AUTO) 100 %
[2019-01-15 03:16] LABS: ALBUMIN 3.5 g/dL (3.5-5.0); ALKALINE PHOSPHATASE 71 U/L (38-126); ANION GAP 17 (5-19); ASPARTATE AMINO TRANSFERASE 27 U/L (14-36); BILIRUBIN,DIRECT 0.2 mg/dL (0.0-0.4); BILIRUBIN,TOTAL 0.3 mg/dL (0.2-1.3); BLOOD UREA NITROGEN 41 mg/dL (7-20); CALCIUM 7.7 mg/dL (8.4-10.2); CARBON DIOXIDE 17 mmol/L (22-30); CHLORIDE 100 mmol/L (98-107); GLUCOSE 105 mg/dL (75-110); POTASSIUM 4.1 mmol/L (3.6-5.0); TOTAL PROTEIN 7.2 g/dL (6.3-8.2)
--- NOTE | 2019-01-15 03:29 | RADIOLOGY REPORT (SQ) ---
EXAM DESCRIPTION: XR CHEST 1 VIEW COMPLETED DATE/TME: 01/15/2019 02:15 CLINICAL HISTORY: 48 years, Female, chest pain COMPARISON: 12/25/2018 chest NUMBER OF VIEWS: 1 TECHNIQUE: Portable chest LIMITATIONS: None. FINDINGS: Prominent soft tissues overlying the thorax. As visualized the heart size is normal and the lungs are clear. No pneumothorax IMPRESSION: No acute cardiopulmonary process copyright 2010 [employer] All Rights Reserved
[2019-01-15] MEDS ORDERED: NORMAL SALINE 1000 ML 1,000 ML IV ONE ×2 (04:41→05:51)
[2019-01-15] MEDS ORDERED: ONDANSETRON HCL INJ/PF 4 MG/2 ML SDV IV PRN (07:47)
[2019-01-15] MEDS ORDERED: MAG HYDROX/AL HYDROX/SIMETH SUSP 30 ML UDCUP PO PRN (07:47)
[2019-01-15] MEDS ORDERED: TEMAZEPAM 15 MG CAPSULE PO PRN (07:47)
[2019-01-15] MEDS ORDERED: ACETAMINOPHEN 325 MG TABLET PO PRN (07:47)
[2019-01-15] MEDS ORDERED: OXYCODONE-ACETAMINOPHEN 5-325 MG TABLET PO PRN (07:47)
[2019-01-15] MEDS ORDERED: CALCIUM GLUCONATE 1,000 MG in DEXTROSE 5%-WATER 50 ML IV ONE (07:50)
[2019-01-15] MEDS: MAGNESIUM SULFATE/D5W 1 GM/100 ML RTUPB IV SCH ×2 (07:50→09:08)
[2019-01-15] MEDS ORDERED: LORAZEPAM INJ 2 MG/1 ML VIAL IV PRN (07:51)
[2019-01-15] MEDS ORDERED: DIAZEPAM 5 MG TABLET PO SCH (08:00)
--- NOTE | 2019-01-15 08:01 | PDOC H&P ---
History of Present Illness Admission Date/PCP: 01/15/2019 BERNIE SAVAGE MD Patient complains of: Chest pain History of Present Illness: FABIANA HEAD is a 48 year old female who states she started developed chest pain after an argument with her daughter. Patient does have history EtOH abuse has a blood alcohol level of 244 today. She states she stopped drinking yesterday about noon. Patient denies any radiation of his chest pain she denies any nausea vomiting or shortness of breath. At my time of assessment she is having no further chest pain. States it is probably anxiety related. Although she does not show any acute renal failure on laboratory database. 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, Hyperlipidema, Hypertension Denies: Atrial Fibrillation, Congestive Heart Failure, Coronary Artery Disease, Peripheral Vascular Disease, Pulmonary Embolism, Heart Murmur Pulmonary Medical History: Reports: Asthma, Chronic Obstructive Pulmonary Disease (COPD) Denies: Bronchitis, Pneumonia, Respiratory Failure, Sleep Apnea, Tuberculosis Neurological Medical History: Reports: Seizures - With alcohol withdrawal Denies: Migraine Endocrine Medical History: Reports: Hypothyroidism Denies: Diabetes Mellitus Type 1, Diabetes Mellitus Type 2, Hyperthyroidism Renal/ Medical History: Denies: End Stage Renal Disease GI Medical History: Reports: Gastroesophageal Reflux Disease Denies: Cirrhosis, Crohn's Disease, Hepatitis, Hiatal Hernia, Ulcerative Colitis Musculoskeltal Medical History: Denies: Arthritis, Fibromyalgia Skin Medical History: Denies: Eczema, Psoriasis Psychiatric Medical History: Reports: Bipolar Disorder, Depression Hematology: Denies: Anemia, Hemophilia, Bleeding Tendencies, Heparin Induced Thrombocytopenia Past Surgical History Past Surgical History: Reports: Appendectomy, Cholecystectomy, Orthopedic Surgery - right knee, Tonsillectomy, Tubal Ligation Denies: Amputation, Section, Hysterectomy, Mastectomy Social History Information Source: Patient Lives with: Family Smoking Status: Never Smoker Electronic Cigarette use?: No Frequency of Alcohol Use: Heavy Hx Recreational Drug Use: No Drugs: None Hx Prescription Drug Abuse: No - Advance Directive Resuscitation Status: Full Code Family History Family History: Malignancy Parental Family History Reviewed: Yes Children Family History Reviewed: Yes Sibling(s) Family History Reviewed.: Yes Medication/Allergy Home Medications: Albuterol Sulfate [Proair HFA Inhalation Aerosol 8.5 gm MDI] 2 puff IH Q4HP PRN 12/25/18 Alprazolam [Xanax] 0.5 mg PO Q8HP PRN 12/25/18 Clonidine HCl [Catapres 0.1 mg Tablet] 0.1 mg PO Q12 12/25/18 Folic Acid [Folvite 1 mg Tablet] 1 mg PO DAILY 12/25/18 Hydrochlorothiazide [Hydrodiuril 25 mg Tablet] 25 mg PO DAILY 12/25/18 Ibuprofen [Motrin 600 mg Tablet] 600 mg PO TID 12/25/18 Levothyroxine Sodium [Synthroid 0.088 mg Tablet] 0.088 mg PO DAILY 12/25/18 Lisinopril [Prinivil 10 mg Tablet] 10 mg PO DAILY 12/25/18 Metoprolol Tartrate [Lopressor 25 mg Tablet] 25 mg PO Q12 12/25/18 Omeprazole 40 mg PO DAILY 12/25/18 Potassium Chloride [K-Tab ER] 20 meq PO BID 12/25/18 Venlafaxine HCl ER [Effexor Xr 37.5 mg Cap.sr] 37.5 mg PO DAILY 12/25/18 Magnesium Oxide [Diasense Magnesium] 400 mg PO BID 14 Days #21 tablet 12/30/18 Allergies/Adverse Reactions: No Known Allergies Allergy (Verified 09/18/18 14:15) Review of Systems Constitutional: ABSENT: chills, fever(s), headache(s), weight gain, weight loss Eyes: ABSENT: visual disturbances Ears: ABSENT: hearing changes Cardiovascular: PRESENT: chest pain. ABSENT: dyspnea on exertion, edema, orthropnea, palpitations Respiratory: ABSENT: cough, hemoptysis Gastrointestinal: ABSENT: abdominal pain, constipation, diarrhea, hematemesis, hematochezia, nausea, vomiting Genitourinary: ABSENT: dysuria, hematuria Musculoskeletal: ABSENT: joint swelling Integumentary: ABSENT: rash, wounds Neurological: ABSENT: abnormal gait, abnormal speech, confusion, dizziness, focal weakness, syncope Psychiatric: ABSENT: anxiety, depression, homidical ideation, suicidal ideation Endocrine: ABSENT: cold intolerance, heat intolerance, polydipsia, polyuria Hematologic/Lymphatic: ABSENT: easy bleeding, easy bruising Physical Exam Vital Signs: Temp Pulse Resp BP Pulse Ox 97.4 F 15 85/40 L 99 01/15/19 01:28 01/15/19 07:00 01/15/19 06:00 01/15/19 07:00 Intake & Output 01/14/19 01/15/19 01/16/19 06:59 06:59 06:59 Intake Total 1000 1000 Balance 1000 1000 Weight 100.5 kg General appearance: PRESENT: no acute distress, well-developed, well-nourished Head exam: PRESENT: atraumatic, normocephalic Eye exam: PRESENT: conjunctiva pink, EOMI, PERRLA. ABSENT: scleral icterus Ear exam: PRESENT: normal external ear exam Mouth exam: PRESENT: moist, tongue midline Neck exam: ABSENT: carotid bruit, JVD, lymphadenopathy, thyromegaly Respiratory exam: PRESENT: clear to auscultation thomas. ABSENT: rales, rhonchi, wheezes Cardiovascular exam: PRESENT: RRR. ABSENT: diastolic murmur, rubs, systolic murmur Pulses: PRESENT: normal dorsalis pedis pul Vascular exam: PRESENT: normal capillary refill GI/Abdominal exam: PRESENT: normal bowel sounds, soft. ABSENT: distended, guarding, mass, organolmegaly, rebound, tenderness Rectal exam: PRESENT: deferred Extremities exam: PRESENT: full ROM. ABSENT: calf tenderness, clubbing, pedal edema Neurological exam: PRESENT: alert, awake, oriented to person, oriented to place, oriented to time, oriented to situation, CN II-XII grossly intact. ABSENT: motor sensory deficit Psychiatric exam: PRESENT: appropriate affect, normal mood. ABSENT: homicidal ideation, suicidal ideation Skin exam: PRESENT: dry, intact, warm. ABSENT: cyanosis, rash Results Laboratory Results: 01/15/19 02:25 01/15/19 02:25 01/15/19 01/15/19 01/15/19 02:25 02:25 02:35 WBC 7.0 RBC 3.04 L Hgb 10.2 L Hct 29.8 L MCV 98 H MCH 33.6 H MCHC 34.3 RDW 13.7 Plt Count 214 Seg Neutrophils % 39.6 L Sodium 133.7 L Potassium 4.1 Chloride 100 Carbon Dioxide 17 L Anion Gap 17 BUN 41 H Creatinine 3.75 H Est GFR ( Amer) 16 L Glucose 105 Calcium 7.7 L Magnesium 1.3 L Total Bilirubin 0.3 AST 27 Alkaline Phosphatase 71 Total Protein 7.2 Albumin 3.5 01/15/19 01/15/19 02:25 04:55 Troponin I 0.069 0.069 Impressions: Chest X-Ray 01/15/19 02:15 IMPRESSION: No acute cardiopulmonary process copyright 2011 [employer]- All Rights Reserved Assessment and Plan - Diagnosis (1) Chest pain Is this a current diagnosis for this admission?: Yes Plan: 01/15/2019-most likely anxiety related. We will continue serial troponins although patient does have acute renal failure which would likely bump her troponin somewhat. Will follow (2) Acute renal failure Qualifiers: Acute renal failure type: unspecified Qualified Code(s): N17.9 - Acute kidney failure, unspecified Is this a current diagnosis for this admission?: Yes Plan: 01/15/2019-normal saline at 175 mL/h. Repeat BMP in a.m. This is all most likely secondary to chronic alcoholism as well as acute dehydration. We will consult nephrology as needed. (3) Hypomagnesemia Is this a current diagnosis for this admission?: Yes Plan: 2918-2 g IV magnesium in the ER. Rally bag with 8 mEq of magnesium daily. Repeat magnesium in a.m. (4) Hypocalcemia Is this a current diagnosis for this admission?: Yes Plan: 01/15/2019-1 g calcium gluconate. Repeat calcium level in a.m. (5) Alcohol abuse Is this a current diagnosis for this admission?: Yes Plan: 01/15/2019-patient states last alcohol intake was at noon yesterday however her alcohol level today is 244. Will give patient Valium 5 mg p.o. every 4 hours and Ativan 1 mg IV every 30 minutes for acute withdrawal symptoms and monitor. Rally bag daily. Seizure precautions. - Time Time Spent with patient: 35 or more minutes - Inpatient Certification Based on my medical assessment, after consideration of the patient's comorbidities, presenting symptoms, or acuity I expect that the services needed warrant INPATIENT care.: Yes I certify that my determination is in accordance with my understanding of Medicare's requirements for reasonable and necessary INPATIENT services [42 CFR 412.3e].: Yes Medical Necessity: Significant Comorbidiites Make Outpatient Treatment Too Ri zackery, Need Close Monitoring Due to Risk of Patient Decompensation, Need For IV Fluids
[2019-01-15] MEDS: DIAZEPAM 5 MG TABLET PO SCH ×4 (09:08→21:00)
[2019-01-15] MEDS ORDERED: CALCIUM GLUCONATE 1000 MG/10 ML INJ IV ONE (09:15)
[2019-01-15] MEDS: NORMAL SALINE 1000 ML 1,000 ML IV PRN (10:44)
[2019-01-15] MEDS ORDERED: INFLUENZA QUAD (6MOS+) 2019-20 VAC 0.5 ML SYR IM ONE (11:40)
--- NOTE | 2019-01-15 12:14 | EKG REPORT ---
SEVERITY:- ABNORMAL ECG - SINUS RHYTHM FIRST DEGREE AV BLOCK NONSPECIFIC INTRAVENTRICULAR CONDUCTION DELAY BORDERLINE INFERIOR Q WAVES : Confirmed by: Hudson Alegria 15-Jan-2019 12:13:01
[2019-01-15] MEDS: HEPARIN SOD (PORCINE) 5,000 UNIT/ML 1 ML VIAL SUBCUT SCH ×2 (13:45→21:02)
[2019-01-15] MEDS: NORMAL SALINE 1000 ML 1,000 ML with MAGNESIUM SULFATE 8 MEQ, THIAMINE HCL 100 MG, MVI, ... IV SCH ×4 (17:48)
[2019-01-16] MEDS: DIAZEPAM 5 MG TABLET PO SCH ×6 (00:41→21:58)
[2019-01-16] MEDS: NORMAL SALINE 1000 ML 1,000 ML IV PRN (02:34)
[2019-01-16] MEDS: HEPARIN SOD (PORCINE) 5,000 UNIT/ML 1 ML VIAL SUBCUT SCH ×3 (05:43→21:58)
[2019-01-16 06:32] LABS: HEMATOCRIT 32.8 % (36.0-47.0); HEMOGLOBIN 11.2 g/dL (12.0-15.5); MEAN CORPUSCULAR HGB CONC 34.2 g/dL (32.0-36.0); MEAN CORPUSCULAR VOLUME 99 fl (80-97); PLATELET COUNT 198 10^3/uL (150-450); RED CELL DISTRIBUTION WIDTH 14.1 % (11.5-14.0); WHITE BLOOD COUNT 5.1 10^3/uL (4.0-10.5)
[2019-01-16 06:54] LABS: ANION GAP 9 (5-19); BLOOD UREA NITROGEN 25 mg/dL (7-20); CARBON DIOXIDE 22 mmol/L (22-30); CHLORIDE 109 mmol/L (98-107); GLUCOSE 94 mg/dL (75-110); PHOSPHORUS 3.6 mg/dL (2.5-4.5); POTASSIUM 4.5 mmol/L (3.6-5.0)
[2019-01-16] MEDS ORDERED: ALPRAZOLAM 0.5 MG TABLET PO PRN (07:37)
--- NOTE | 2019-01-16 07:40 | PDOC PROGRESS REPORT ---
Subjective Progress Note for:: 01/16/19 Subjective:: 01/16/2019-no complaints this a.m. Reason For Visit: ACUTE RENAL FAILURE Physical Exam Vital Signs: Temp Pulse Resp BP Pulse Ox 98.2 F 78 20 141/84 H 98 01/16/19 03:24 01/16/19 03:24 01/16/19 03:24 01/16/19 03:24 01/16/19 03:24 Intake & Output 01/15/19 01/16/19 01/17/19 06:59 06:59 06:59 Intake Total 1000 4839 Output Total 1400 Balance 1000 3439 Weight 100.5 kg 104.4 kg General appearance: PRESENT: no acute distress, well-developed, well-nourished Neck exam: ABSENT: carotid bruit, JVD, lymphadenopathy, thyromegaly Respiratory exam: PRESENT: clear to auscultation thomas. ABSENT: rales, rhonchi, wheezes Cardiovascular exam: PRESENT: RRR. ABSENT: diastolic murmur, rubs, systolic murmur Pulses: PRESENT: normal dorsalis pedis pul Vascular exam: PRESENT: normal capillary refill GI/Abdominal exam: PRESENT: normal bowel sounds, soft. ABSENT: distended, guarding, mass, organolmegaly, rebound, tenderness Extremities exam: PRESENT: full ROM. ABSENT: calf tenderness, clubbing, pedal edema Neurological exam: PRESENT: alert, awake, oriented to person, oriented to place, oriented to time, oriented to situation, CN II-XII grossly intact. ABSENT: motor sensory deficit Psychiatric exam: PRESENT: agitated Skin exam: PRESENT: dry, intact, warm. ABSENT: cyanosis, rash Results Laboratory Results: 01/16/19 05:28 01/16/19 05:28 01/16/19 01/16/19 05:28 05:28 WBC 5.1 RBC 3.30 L Hgb 11.2 L Hct 32.8 L MCV 99 H MCH 34.0 H MCHC 34.2 RDW 14.1 H Plt Count 198 Sodium 139.9 Potassium 4.5 Chloride 109 H Carbon Dioxide 22 Anion Gap 9 BUN 25 H Creatinine 1.18 Est GFR ( Amer) 59 L Glucose 94 Calcium 9.0 Phosphorus 3.6 Magnesium 1.7 01/15/19 01/15/19 01/15/19 02:25 04:55 10:46 Troponin I 0.069 0.069 0.085 Impressions: Chest X-Ray 01/15/19 02:15 IMPRESSION: No acute cardiopulmonary process copyright 2011 [employer]- All Rights Reserved Assessment and Plan - Diagnosis (1) Chest pain Is this a current diagnosis for this admission?: Yes Plan: 01/15/2019-most likely anxiety related. We will continue serial troponins although patient does have acute renal failure which would likely bump her troponin somewhat. Will follow 01/16/2019-no further chest pain. Troponin mildly elevated 0.08 most likely secondary to acute renal failure. Continue to follow (2) Acute renal failure Qualifiers: Acute renal failure type: unspecified Qualified Code(s): N17.9 - Acute kidney failure, unspecified Is this a current diagnosis for this admission?: Yes Plan: 01/15/2019-normal saline at 175 mL/h. Repeat BMP in a.m. This is all most likely secondary to chronic alcoholism as well as acute dehydration. We will consult nephrology as needed. 01/16/2019-resolved stable continue to follow (3) Hypomagnesemia Is this a current diagnosis for this admission?: Yes Plan: 2918-2 g IV magnesium in the ER. Rally bag with 8 mEq of magnesium daily. Repeat magnesium in a.m. 01/16/2019-resolved stable (4) Hypocalcemia Is this a current diagnosis for this admission?: Yes Plan: 01/15/2019-1 g calcium gluconate. Repeat calcium level in a.m. 01/16/2019-resolved stable (5) Alcohol abuse Is this a current diagnosis for this admission?: Yes Plan: 01/15/2019-patient states last alcohol intake was at noon yesterday however her alcohol level today is 244. Will give patient Valium 5 mg p.o. every 4 hours and Ativan 1 mg IV every 30 minutes for acute withdrawal symptoms and monitor. Rally bag daily. Seizure precautions. 01/16/2019-stable at this time continue p.o. Valium and PRN Ativan. Seizure precautions and rally bag - Time Time Spent with patient: 15-24 minutes - Inpatient Certification Based on my medical assessment, after consideration of the patient's comorbidities, presenting symptoms, or acuity I expect that the services needed warrant INPATIENT care.: Yes I certify that my determination is in accordance with my understanding of Medicare's requirements for reasonable and necessary INPATIENT services [42 CFR 412.3e].: Yes Medical Necessity: Significant Comorbidiites Make Outpatient Treatment Too Risky, Need Close Monitoring Due to Risk of Patient Decompensation
[2019-01-16] MEDS: CLONIDINE HCL 0.1 MG TABLET PO SCH ×2 (09:56→17:26)
[2019-01-16] MEDS: VENLAFAXINE HCL 37.5 MG CAP.SR.24H PO SCH (09:56)
[2019-01-16] MEDS: METOPROLOL TARTRATE 25 MG TABLET PO SCH ×2 (09:56→17:26)
[2019-01-16] MEDS: LISINOPRIL 10 MG TABLET PO SCH (09:56)
[2019-01-16] MEDS: NORMAL SALINE 1000 ML 1,000 ML with MAGNESIUM SULFATE 8 MEQ, THIAMINE HCL 100 MG, MVI, ... IV SCH ×4 (17:26)
[2019-01-17] MEDS: DIAZEPAM 5 MG TABLET PO SCH ×3 (00:21→09:59)
[2019-01-17] MEDS: HEPARIN SOD (PORCINE) 5,000 UNIT/ML 1 ML VIAL SUBCUT SCH (05:39)
[2019-01-17] MEDS ORDERED: LEVOTHYROXINE SODIUM 0.088 MG TABLET PO SCH (06:00)
--- NOTE | 2019-01-17 08:09 | PDOC DISCHARGE SUMMARY ---
Impression - Admit/DC Date/PCP Admission Date/Primary Care Provider: 01/15/19 07:57 BERNIE SAVAGE MD Discharge Date: 01/17/19 - Discharge Diagnosis (1) Chest pain Is this a current diagnosis for this admission?: Yes (2) Acute renal failure Is this a current diagnosis for this admission?: Yes (3) Hypomagnesemia Is this a current diagnosis for this admission?: Yes (4) Hypocalcemia Is this a current diagnosis for this admission?: Yes (5) Alcohol abuse Is this a current diagnosis for this admission?: Yes - Additional Information Resuscitation Status: Full Code Discharge Diet: As Tolerated Discharge Activity: Activity As Tolerated Referrals: BERNIE SAVAGE MD [Primary Care Provider] - Follow up as needed Home Medications: Albuterol Sulfate [Proair HFA Inhalation Aerosol 8.5 gm MDI] 2 puff IH Q4HP PRN 01/15/19 Alprazolam [Xanax 0.5 mg Tablet] 0.5 mg PO TIDP PRN 01/15/19 Clonidine HCl [Catapres 0.1 mg Tablet] 0.1 mg PO BID 01/15/19 Folic Acid 1 mg PO DAILY 01/15/19 Hydrochlorothiazide [Hydrodiuril 25 mg Tablet] 25 mg PO DAILY 01/15/19 Ibuprofen [Motrin 600 mg Tablet] 600 mg PO Q8HP PRN 01/15/19 Levothyroxine Sodium 88 mcg PO Q6AM 01/15/19 Lisinopril [Prinivil 10 mg Tablet] 10 mg PO DAILY 01/15/19 Magnesium Oxide [Mag-Ox 400 mg Tablet] 400 mg PO DAILY 01/15/19 Metoprolol Tartrate [Lopressor 25 mg Tablet] 25 mg PO BID 01/15/19 Nystatin [Mycostatin Topical Powder 15 gm] 1 applic TOP QID 01/15/19 Omeprazole 40 mg PO [id number] 01/15/19 Potassium Chloride [K-Tab ER] 20 meq PO BID 01/15/19 Thiamine Mononitrate [Vitamin B-1] 100 mg PO DAILY 01/15/19 Venlafaxine HCl ER [Effexor Xr 37.5 mg Cap.sr] 37.5 mg PO DAILY 01/15/19 History of Present Illiness History of Present Illness: FABIANA HEAD is a 48 year old female who states she started developed chest pain after an argument with her daughter. Patient does have history EtOH abuse has a blood alcohol level of 244 today. She states she stopped drinking yesterday about noon. Patient denies any radiation of his chest pain she denies any nausea vomiting or shortness of breath. At my time of assessment she is having no further chest pain. States it is probably anxiety related. Although she does not show any acute renal failure on laboratory database. No treatment prior to arrival no true aggravating factors other than anxiety Hospital Course Hospital Course: Patient is a 48-year-old female with long-standing history of alcohol abuse. Patient presented to the ER after having a fight with her daughter with chest pain which is most likely secondary to anxiety. Patient was found to have an acute renal failure hypomagnesemia and hypocalcemia. Patient was placed on IMCU given copious amounts of IV fluids with a complete resolution of her acute renal failure. Patient was also repleted for her hypomagnesemia and hypocalcemia. At this time patient is improved patient return home. She should follow-up with her primary care within 1 week. And has abstained from alcohol abuse. Physical Exam Vital Signs: Temp Pulse Resp BP Pulse Ox 98.0 F 59 L 20 153/88 H 95 01/17/19 03:45 01/17/19 03:45 01/17/19 03:45 01/17/19 03:45 01/17/19 03:45 Intake & Output 01/16/19 01/17/19 01/18/19 06:59 06:59 06:59 Intake Total 4839 3005 Output Total 1400 1200 Balance 3439 1805 Weight 104.4 kg 106.8 kg General appearance: PRESENT: no acute distress, well-developed, well-nourished Head exam: PRESENT: atraumatic, normocephalic Eye exam: PRESENT: conjunctiva pink, EOMI, PERRLA. ABSENT: scleral icterus Ear exam: PRESENT: normal external ear exam Mouth exam: PRESENT: moist, tongue midline Neck exam: ABSENT: carotid bruit, JVD, lymphadenopathy, thyromegaly Respiratory exam: PRESENT: clear to auscultation thomas. ABSENT: rales, rhonchi, wheezes Cardiovascular exam: PRESENT: RRR. ABSENT: diastolic murmur, rubs, systolic murmur Pulses: PRESENT: normal dorsalis pedis pul Vascular exam: PRESENT: normal capillary refill GI/Abdominal exam: PRESENT: normal bowel sounds, soft. ABSENT: distended, guarding, mass, organolmegaly, rebound, tenderness Rectal exam: PRESENT: deferred Extremities exam: PRESENT: full ROM. ABSENT: calf tenderness, clubbing, pedal edema Neurological exam: PRESENT: alert, awake, oriented to person, oriented to place, oriented to time, oriented to situation, CN II-XII grossly intact. ABSENT: motor sensory deficit Psychiatric exam: PRESENT: appropriate affect, normal mood. ABSENT: homicidal ideation, suicidal ideation Skin exam: PRESENT: dry, intact, warm. ABSENT: cyanosis, rash Results Laboratory Results: WBC 5.1 10^3/uL (4.0-10.5) 01/16/19 05:28 RBC 3.30 10^6/uL (3.72-5.28) L 01/16/19 05:28 Hgb 11.2 g/dL (12.0-15.5) L 01/16/19 05:28 Hct 32.8 % (36.0-47.0) L 01/16/19 05:28 MCV 99 fl (80-97) H 01/16/19 05:28 MCH 34.0 pg (27.0-33.4) H 01/16/19 05:28 MCHC 34.2 g/dL (32.0-36.0) 01/16/19 05:28 RDW 14.1 % (11.5-14.0) H 01/16/19 05:28 Plt Count 198 10^3/uL (150-450) 01/16/19 05:28 Lymph % (Auto) 44.0 % (13-45) 01/15/19 02:25 [place] % (Auto) 12.6 % (3-13) 01/15/19 02:25 Eos % (Auto) 2.6 % (0-6) 01/15/19 02:25 Baso % (Auto) 1.2 % (0-2) 01/15/19 02:25 Absolute Neuts (auto) 2.8 10^3/uL (1.7-8.2) 01/15/19 02:25 Absolute Lymphs (auto) 3.1 10^3/uL (0.5-4.7) 01/15/19 02:25 Absolute Monos (auto) 0.9 10^3/uL (0.1-1.4) 01/15/19 02:25 Absolute Eos (auto) 0.2 10^3/uL (0.0-0.6) 01/15/19 02:25 Absolute Basos (auto) 0.1 10^3/uL (0.0-0.2) 01/15/19 02:25 Seg Neutrophils % 39.6 % (42-78) L 01/15/19 02:25 Sodium 139.9 mmol/L (137-145) 01/16/19 05:28 Potassium 4.5 mmol/L (3.6-5.0) 01/16/19 05:28 Chloride 109 mmol/L (98-107) H 01/16/19 05:28 Carbon Dioxide 22 mmol/L (22-30) 01/16/19 05:28 Anion Gap 9 (5-19) 01/16/19 05:28 BUN 25 mg/dL (7-20) H 01/16/19 05:28 Creatinine 1.18 mg/dL (0.52-1.25) 01/16/19 05:28 Est GFR ( Amer) 59 (>60) L 01/16/19 05:28 Est GFR (MDRD) Non-Af 49 (>60) L 01/16/19 05:28 Glucose 94 mg/dL (75-110) 01/16/19 05:28 Calcium 9.0 mg/dL (8.4-10.2) 01/16/19 05:28 Phosphorus 3.6 mg/dL (2.5-4.5) 01/16/19 05:28 Magnesium 1.7 mg/dL (1.6-2.3) 01/16/19 05:28 Total Bilirubin 0.3 mg/dL (0.2-1.3) 01/15/19 02:25 Direct Bilirubin 0.2 mg/dL (0.0-0.4) 01/15/19 02:25 Neonat Total Bilirubin Not Reportable 01/15/19 02:25 Neonat Direct Bilirubin Not Reportable 01/15/19 02:25 Neonat Indirect Bili Not Reportable 01/15/19 02:25 AST 27 U/L (14-36) 01/15/19 02:25 ALT 17 U/L (<35) 01/15/19 02:25 Alkaline Phosphatase 71 U/L (38-126) 01/15/19 02:25 Troponin I 0.085 ng/mL 01/15/19 10:46 Total Protein 7.2 g/dL (6.3-8.2) 01/15/19 02:25 Albumin 3.5 g/dL (3.5-5.0) 01/15/19 02:25 Serum Alcohol 244 mg/dL (NONE DETECTED) 01/15/19 02:35 01/15/19 01/15/19 01/15/19 02:25 04:55 10:46 Troponin I 0.069 0.069 0.085 Impressions: Chest X-Ray 01/15/19 02:15 IMPRESSION: No acute cardiopulmonary process copyright 2011 [employer]- All Rights Reserved Plan Time Spent: Greater than 30 Minutes Stroke Is this a Stroke Patient?: No Acute Heart Failure - Is this a Heart Failure Patient?: No
[2019-01-17 08:58] LABS: HEMATOCRIT 32.1 % (36.0-47.0); MEAN CORPUSCULAR HEMOGLOBIN 34.1 pg (27.0-33.4); MEAN CORPUSCULAR HGB CONC 34.3 g/dL (32.0-36.0); MEAN CORPUSCULAR VOLUME 99 fl (80-97); PLATELET COUNT 203 10^3/uL (150-450); RED BLOOD COUNT 3.22 10^6/uL (3.72-5.28); WHITE BLOOD COUNT 6.6 10^3/uL (4.0-10.5)
[2019-01-17 09:10] LABS: ANION GAP 9 (5-19); BLOOD UREA NITROGEN 18 mg/dL (7-20); CARBON DIOXIDE 23 mmol/L (22-30); CHLORIDE 106 mmol/L (98-107); GLUCOSE 93 mg/dL (75-110); POTASSIUM 4.8 mmol/L (3.6-5.0)
[2019-01-17] MEDS: VENLAFAXINE HCL 37.5 MG CAP.SR.24H PO SCH (09:59)
[2019-01-17] MEDS: CLONIDINE HCL 0.1 MG TABLET PO SCH (09:59)
[2019-01-17] MEDS: METOPROLOL TARTRATE 25 MG TABLET PO SCH (09:59)
[2019-01-17] MEDS: LISINOPRIL 10 MG TABLET PO SCH (09:59)
[2019-01-17 12:43] VITALS: BP 141/86
== END 2019-01-17 13:46 | disposition home or self-care (01) | DRG 684 ==
LOC: ER 01:21 → EH 07:57 → 3S 11:19
PROVIDERS: ADMIT Internal Medicine; ATTEND Internal Medicine
DX: N17.9 Acute kidney failure, unspecified (principal); E83.42 Hypomagnesemia; E83.51 Hypocalcemia; Z63.79 Other stressful life events affecting family and household; F41.9 Anxiety disorder, unspecified; R07.89 Other chest pain; F10.10 Alcohol abuse, uncomplicated; Y90.8 Blood alcohol level of 240 mg/100 ml or more; I10 Essential (primary) hypertension; I25.2 Old myocardial infarction; E03.9 Hypothyroidism, unspecified; J44.9 Chronic obstructive pulmonary disease, unspecified; K21.9 Gastro-esophageal reflux disease without esophagitis; Z90.49 Acquired absence of other specified parts of digestive tract; Z79.51 Long term (current) use of inhaled steroids; Z79.899 Other long term (current) drug therapy; Z23 Encounter for immunization
CPT/HCPCS: 36415; 71045; 80048; 80053; 80307; 83735; 84100; 84484; 85025; 85027; 90686; 93005; 93010; 96361; 96374; 99285; J0610; J1644; J3411; J3475; J3490; J7030

== ENCOUNTER 2019-02-21 15:33 | Inpatient (IN) | payer MEDICARE, MEDICAID ==
[2019-02-21] MEDS ORDERED: THIAMINE HCL 100 MG, FOLIC ACID 1 MG in NORMAL SALINE 250 ML IV ONE (15:51)
[2019-02-21] MEDS ORDERED: MORPHINE SULFATE 10 MG/ML INJ IV ONE (15:52)
--- NOTE | 2019-02-21 15:54 | ER Document Report ---
ED Medical Screen (RME) - General Chief Complaint: Breathing Difficulty Stated Complaint: DIFFICULTY BREATHING Time Seen by Provider: 02/21/19 15:44 Primary Care Provider: BERNIE SAVAGE MD [Primary Care Provider] - Follow up as needed Notes: Patient is a 48-year-old female presents emergency department via EMS for shortness of breath. She apparently fell 3 days ago on her left side. She states that she has been laying in bed all day and became short of breath today. Patient has history of alcohol abuse and has been admitted multiple times here in the emergency department. Patient denies passing out. Patient drinks bourbon and her last drink was last night. Exam: Tachypneic, tenderness to left side of ribs. I have greeted and performed a rapid initial assessment of this patient. A comprehensive ED assessment and evaluation of the patient, analysis of test results and completion of medical decision making process will be conducted by an additional ED providers. TRAVEL OUTSIDE OF THE [place] IN LAST 30 DAYS: No - Related Data Allergies/Adverse Reactions: No Known Allergies Allergy (Verified 09/18/18 14:15) Past Medical History - Past Medical History Cardiac Medical History: Reports: 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, Hx Hypercholesterolemia, Hx Hypertension Denies: Hx Atrial Fibrillation, Hx Congestive Heart Failure, Hx Coronary Artery Disease, Hx Peripheral Vascular Disease, Hx Pulmonary Embolism, Hx Heart Murmur Pulmonary Medical History: Reports: Hx Asthma, Hx COPD Denies: Hx Bronchitis, Hx Pneumonia, Hx Respiratory Failure, Hx Sleep Apnea, Hx Tuberculosis Neurological Medical History: Reports: Hx Seizures - With alcohol withdrawal. Denies: Hx Migraine, Hx Parkinson's Disease Endocrine Medical History: Reports: Hx Hypothyroidism. Denies: Hx Diabetes Mellitus Type 1, Hx Diabetes Mellitus Type 2, Hx Hyperthyroidism Renal/ Medical History: Denies: Hx End Stage Renal Disease, Hx Peritoneal Dialysis GI Medical History: Reports: Hx Gastroesophageal Reflux Disease. Denies: Hx Cirrhosis, Hx Crohn's Disease, Hx Hepatitis, Hx Hiatal Hernia, Hx Pancreatitis, Hx Ulcer, Hx Ulcerative Colitis Musculoskeltal Medical History: Denies Hx Arthritis, Denies Hx Fibromyalgia Skin Medical History: Denies Hx Eczema, Denies Hx Psoriasis Psychiatric Medical History: Reports: Hx Bipolar Disorder, Hx Depression Denies: Hx Schizophrenia Traumatic Medical History: Reports: Hx Fractures - R. leg. Pt. has a steel debi. Infectious Medical History: Denies: Hx Hepatitis Past Surgical History: Reports: Hx Appendectomy, Hx Cholecystectomy, Hx Orthopedic Surgery - right knee, Hx Tonsillectomy, Hx Tubal Ligation. Denies: Hx Bowel Surgery, Hx Section, Hx Hysterectomy, Hx Mastectomy - Immunizations Hx Diphtheria, Pertussis, Tetanus Vaccination: No Doctor's Discharge - Discharge Referrals: BERNIE SAVAGE MD [Primary Care Provider] - Follow up as needed
[2019-02-21 16:44] LABS: ABSOLUTE BASOPHILS # (AUTO) 0.1 10^3/uL (0.0-0.2); ABSOLUTE EOSINOPHILS # (AUTO) 0.1 10^3/uL (0.0-0.6); ABSOLUTE LYMPHOCYTES (AUTO) 2.2 10^3/uL (0.5-4.7); ABSOLUTE MONOCYTES (AUTO) 0.5 10^3/uL (0.1-1.4); ABSOLUTE NEUT (AUTO) 2.4 10^3/uL (1.7-8.2); BASOPHILS % (AUTO) 2.3 % (0-2); EOSINOPHILS % (AUTO) 2.4 % (0-6); HEMATOCRIT 33.7 % (36.0-47.0); HEMOGLOBIN 11.5 g/dL (12.0-15.5); LYMPHOCYTES % (AUTO) 41.3 % (13-45); MEAN CORPUSCULAR HEMOGLOBIN 33.5 pg (27.0-33.4); MEAN CORPUSCULAR HGB CONC 34.2 g/dL (32.0-36.0); MEAN CORPUSCULAR VOLUME 98 fl (80-97); MONOCYTES % (AUTO) 9.1 % (3-13); PLATELET COUNT 229 10^3/uL (150-450); RED BLOOD COUNT 3.44 10^6/uL (3.72-5.28); RED CELL DISTRIBUTION WIDTH 13.8 % (11.5-14.0); SEGMENTED NEUTROPHILS % (AUTO) 44.9 % (42-78); TOTAL CELLS COUNTED % (AUTO) 100 %; WHITE BLOOD COUNT 5.4 10^3/uL (4.0-10.5)
[2019-02-21 16:51] LABS: APPEARANCE,URINE CLEAR; BILIRUBIN,URINE NEGATIVE (NEGATIVE); COLOR,URINE YELLOW; GLUCOSE, URINE NEGATIVE (NEGATIVE); KETONES,URINE NEGATIVE (NEGATIVE); LEUKOCYTE ESTERASE,URINE TRACE (NEGATIVE); NITRITE,URINE POSITIVE (NEGATIVE); PROTEIN,URINE >=500 mg/dL (NEGATIVE); URINE SPECIFIC GRAVITY 1.012; UROBILINOGEN,URINE NEGATIVE mg/dL (<2.0)
[2019-02-21 16:57] LABS: ALBUMIN 4.3 g/dL (3.5-5.0); ALCOHOL 292 mg/dL (NONE DETECTED); ALKALINE PHOSPHATASE 104 U/L (38-126); ANION GAP 13 (5-19); ASPARTATE AMINO TRANSFERASE 49 U/L (14-36); BILIRUBIN,DIRECT 0.2 mg/dL (0.0-0.4); BILIRUBIN,TOTAL 0.4 mg/dL (0.2-1.3); BLOOD UREA NITROGEN 13 mg/dL (7-20); CALCIUM 8.7 mg/dL (8.4-10.2); CARBON DIOXIDE 23 mmol/L (22-30); CHLORIDE 108 mmol/L (98-107); GLUCOSE 100 mg/dL (75-110); POTASSIUM 4.2 mmol/L (3.6-5.0); TOTAL PROTEIN 8.3 g/dL (6.3-8.2)
--- NOTE | 2019-02-21 17:13 | RADIOLOGY REPORT (SQ) ---
EXAM DESCRIPTION: RIBS LEFT W/PA CHEST COMPLETED DATE/TIME: 02/21/2019 4:37 pm REASON FOR STUDY: fall; shortness of breath COMPARISON: 01/15/2019 TECHNIQUE: Frontal view of the chest and additional views of the left ribs acquired. NUMBER OF VIEWS: Four view. LIMITATIONS: None. FINDINGS: FRONTAL CXR: No pneumothorax. No pleural effusion. No atelectasis or infiltrates. RIBS: Minimally displaced left lateral 11th rib fracture. OTHER: No other significant finding. IMPRESSION: Minimally displaced left lateral 11th rib fracture. No pneumothorax. COMMENT: SITE OF TRAUMA/COMPLAINT MARKED/STAMP COMPLETED: NO. TECHNICAL DOCUMENTATION: JOB ID: [id number] [employer]- All Rights Reserved Reading location - IP/workstation name: [id number]
[2019-02-21] MEDS ORDERED: NORMAL SALINE 1000 ML 1,000 ML IV ONE ×2 (17:25→21:25)
[2019-02-21] MEDS ORDERED: DEXTROSE 5%-1/2 NORMAL SALINE 1,000 ML IV ONE (17:25)
[2019-02-21] MEDS ORDERED: LORAZEPAM INJ 2 MG/1 ML VIAL IV ONE (17:28)
--- NOTE | 2019-02-21 17:29 | ER Document Report ---
ED General - General Chief Complaint: Breathing Difficulty Stated Complaint: DIFFICULTY BREATHING Time Seen by Provider: 02/21/19 15:44 Primary Care Provider: BERNIE SAVAGE MD [Primary Care Provider] - Follow up as needed TRAVEL OUTSIDE OF THE [place] 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 Denies: Hx Migraine, Hx Parkinson's Disease Endocrine Medical History: Reports: Hx Hypothyroidism. Denies: Hx Diabetes Mellitus Type 1, Hx Diabetes Mellitus Type 2, Hx Hyperthyroidism Renal/ Medical History: Denies: Hx End Stage Renal Disease, Hx Peritoneal Dialysis GI Medical History: Reports: Hx Gastroesophageal Reflux Disease. Denies: Hx Cirrhosis, Hx Crohn's Disease, Hx Hepatitis, Hx Hiatal Hernia, Hx Pancreatitis, Hx Ulcer, Hx Ulcerative Colitis Musculoskeletal Medical History: Denies Hx Arthritis, Denies Hx Fibromyalgia Skin Medical History: Denies Hx Eczema, Denies Hx Psoriasis Psychiatric Medical History: Reports: Hx Bipolar Disorder, Hx Depression Denies: Hx Schizophrenia Traumatic Medical History: Reports: Hx Fractures - R. leg. Pt. has a steel debi. Infectious Medical History: Denies: Hx Hepatitis Past Surgical History: Reports: Hx Appendectomy, Hx Cholecystectomy, Hx Orthopedic Surgery - right knee, Hx Tonsillectomy, Hx Tubal Ligation. Denies: Hx Bowel Surgery, Hx Section, Hx Hysterectomy, Hx Mastectomy - Immunizations Hx Diphtheria, Pertussis, Tetanus Vaccination: No Hx Pneumococcal Vaccination: 05/05/11 Physical Exam - Vital signs Vitals: Temp Pulse Resp BP Pulse Ox 97.2 F 101 H 20 181/110 H 96 02/21/19 15:43 02/21/19 15:43 02/21/19 15:43 02/21/19 15:43 02/21/19 15:43 - Notes Notes: Patient is to emerge department planing about shortness of breath is going on for the past 2 days. Reports that she tripped and fell 2 nights ago when drunk landing on the left side. She said she did not hit her head and her friend helped her up. Since that time she has been laying in bed. She denies any headaches or neck pain abnormal vision says had a little bit of nausea but no vomiting or abdominal pain fevers or cough. Has had persistent shortness of breath since Friday. And pain over left lateral chest increases with inspiration. Last drink was last night. Decreased p.o. intake. There is medical history is significant for asthma hypothyroidism and hypertension. No diabetes. Social history smokes and drinks with a long history of alcohol abuse Review of systems pertinent positives and negatives in HPI otherwise all the systems were reviewed and acutely negative PHYSICIAN EXAM -vital signs are noted triage note and note from triage reviewed GENERAL: Well-appearing, well-nourished and in __mild distress____ HEAD: Atraumatic, normocephalic. EYES: Pupils equal round and reactive to light, extraocular movements intact, there is no nystagmus sclera anicteric, conjunctiva are normal. ENT: nares patent, oropharynx clear without exudates. Dry mucous membranes. The face is nontender NECK: supple without lymphadenopathy neck shows some plus minus tenderness in the midline exam is equivocal. She is moving her neck around freely LUNGS: She has decreased breath sounds throughout secondary to pain. There are some upper airway rhonchi and a few scattered wheezes. She has significant tenderness over the left lateral chest extending into the posterior hemithorax crepitus and some tenderness over the anterior chest HEART: Rapid and regular ABDOMEN: Soft, nontender, normoactive bowel sounds. EXTREMITIES: No deformity, no edema. Palpable cords NEUROLOGICAL: She is awake and alert she can tell me in the hospital the year and a day but is not sure of the day of the week of the month. She is very slow to answer and appears somewhat confused at times cranial nerves she has symmetrical smile facial expressions. Her motor strength is symmetric bila terally upper lower extremities toes downgoing. She is got mild tremors PSYCH: Normal mood, normal affect. SKIN: Warm, Dry, normal turgor, no rashes or lesions noted. BACK-nontender in the midline pelvis is stable for range of motion of the hips Differential diagnosis asthma bronchitis pneumonia pneumothorax dehydration abnormal electrolytes Course - Re-evaluation Re-evalutation: 02/22/19 01:09 ED patient is remained stable but persistently tachycardia and will drop her sats when she lays down. Was given steroids and 1 DuoNeb treatment here with only a rare wheeze. She was given 2 L of IV fluids with some improvement of heart rate but continues to be tachycardic when she moves around. X-ray reports that was because the bathroom heart rate goes up and her oxygen drops to 88% obtain ABG which did not show any significant hypoxia. Medical decision making patient presents with shortness of breath. She has does have some wheezing and probably has a component of COPD. Am concerned about her persistent tachycardia and low O2 sat low oxygen 70s may be related to her COPD some of it may be related to splinting from her rib fracture. She has received pain medicine do not think the patient has a PE at this time. At this point I think the patient will need admission to the hospital for overnight observation have consulted the hospitalist 02/22/19 01:12 02/22/19 01:16 - Vital Signs Vital signs: Temp Pulse Resp BP Pulse Ox 98.0 F 101 H 19 157/96 H 100 02/21/19 23:48 02/21/19 15:43 02/22/19 00:23 02/22/19 00:01 02/22/19 00:23 - Laboratory Result Diagrams: 02/21/19 15:49 02/21/19 15:49 Laboratory results interpreted by me: 02/21/19 02/21/19 02/21/19 15:49 15:49 15:49 RBC 3.44 L Hgb 11.5 L Hct 33.7 L MCV 98 H MCH 33.5 H Baso % (Auto) 2.3 H ABG pO2 ABG O2 Saturation Chloride 108 H AST 49 H Creatine Kinase Total Protein 8.3 H Urine Protein >=500 H Urine Nitrite POSITIVE H Ur Leukocyte Esterase TRACE H 02/21/19 02/21/19 15:49 23:43 RBC Hgb Hct MCV MCH Baso % (Auto) ABG pO2 64.6 L ABG O2 Saturation 92.4 L Chloride AST Creatine Kinase 171 H Total Protein Urine Protein Urine Nitrite Ur Leukocyte Esterase - EKG Interpretation by Me Additional EKG results interpreted by me: 02/21/19 17:36 EKG read by me shows normal sinus rhythm with a rate of 91 there is a first-deg ree heart block some baseline artifact and says some minimal nonspecific ST wave changes QT interval is abnormal at 0.48 Critical Care Note - Critical Care Note Total time excluding time spent on procedures (mins): 35 Discharge - Discharge Clinical Impression: Tachycardia COPD (chronic obstructive pulmonary disease) Qualifiers: COPD type: COPD with acute exacerbation Qualified Code(s): J44.1 - Chronic obstructive pulmonary disease with (acute) exacerbation Left rib fracture Qualifiers: Encounter type: initial encounter Rib fracture type: single rib Fracture type: closed Qualified Code(s): S22.32XA - Fracture of one rib, left side, initial encounter for closed fracture Disposition: ADMITTED OBSERVATION Unit Admitted: Telemetry Referrals: BERNIE SAVAGE MD [Primary Care Provider] - Follow up as needed
[2019-02-21 17:57] LABS: INTERNATIONAL RATION (INR) 1.01; PROTHROMBIN TIME 13.3 SEC (11.4-15.4)
[2019-02-21] MEDS: MAGNESIUM SULFATE/D5W 1 GM/100 ML RTUPB IV SCH ×2 (18:10→18:58)
[2019-02-21] MEDS ORDERED: IPRATROPIUM/ALBUTEROL 0.5-2.5 MG/3 ML AMPUL NEB ONE (18:28)
--- NOTE | 2019-02-21 18:49 | RADIOLOGY REPORT (SQ) ---
EXAM DESCRIPTION: CT CERVICAL SPINE WITHOUT COMPLETED DATE/TIME: 02/21/2019 5:59 pm REASON FOR STUDY: Trauma COMPARISON: 06/17/2017 TECHNIQUE: Axial images acquired through the cervical spine without intravenous contrast. Images re viewed with lung, soft tissue and bone windows. Reconstructed coronal and sagittal MPR images review ed. Images stored on PACS. All CT scanners at this facility use dose modulation, iterative reconstruction, and/or weight based d osing when appropriate to reduce radiation dose to as low as reasonably achievable (ALARA). [facility]: Dose Right [facility]: CareDose [facility]: Dose Right [facility]: Teradose 4D [facility]: [employer] RADIATION DOSE: CT Rad equipment meets quality standard of care and radiation dose reduction techniq ues were employed. CTDIvol: 22.9 mGy. DLP: 523 mGy-cm. mGy. LIMITATIONS: None. FINDINGS: ALIGNMENT: Anatomic. MINERALIZATION: Normal. VERTEBRAL BODIES: No fractures or dislocation. DISCS: Moderate disc degenerative disease and osteophytosis of C5-C6. Disc spaces are otherwise rela tively well preserved. FACETS, LATERAL MASSES, POSTERIOR ELEMENTS: No fractures. No dislocation. No acute findings. HARDWARE: None in the spine. VISUALIZED RIBS: No fractures. LUNG APICES AND SOFT TISSUES: No significant or acute findings. OTHER: No other significant finding. IMPRESSION: No fracture or static subluxation of the cervical spine. TECHNICAL DOCUMENTATION: JOB ID: [id number] Quality ID # [id number]: Final reports with documentation of one or more dose reduction techniques (e.g., Au tomated exposure control, adjustment of the mA and/or kV according to patient size, use of iterative reconstruction technique) 2010 [employer]- All Rights Reserved Reading location - IP/workstation name: [email or web address]
--- NOTE | 2019-02-21 18:52 | RADIOLOGY REPORT (SQ) ---
EXAM DESCRIPTION: CT HEAD WITHOUT COMPLETED DATE/TIME: 02/21/2019 5:59 pm REASON FOR STUDY: , Trauma COMPARISON: 08/19/2018 TECHNIQUE: Axial images acquired through the brain without intravenous contrast. Images reviewed wi th bone, brain and subdural windows. Additional sagittal and coronal reconstructions were generated. Images stored on PACS. All CT scanners at this facility use dose modulation, iterative reconstruction, and/or weight based d osing when appropriate to reduce radiation dose to as low as reasonably achievable (ALARA). [facility]: Dose Right [facility]: CareDose [facility]: Dose Right [facility]: Teradose 4D [facility]: [employer] RADIATION DOSE: CT Rad equipment meets quality standard of care and radiation dose reduction techniq ues were employed. CTDIvol: 48.5 mGy. DLP: 952 mGy-cm. mGy. LIMITATIONS: None. FINDINGS: VENTRICLES: Normal size and contour. CEREBRUM: No masses. No hemorrhage. No midline shift. No evidence for acute infarction. Few scatte red areas of low density in the white matter most likely chronic small vessel ischemic changes. CEREBELLUM: No masses. No hemorrhage. No alteration of density. No evidence for acute infarction. EXTRAAXIAL SPACES: No fluid collections. No masses. ORBITS AND GLOBE: No intra- or extraconal masses. Normal contour of globe without masses. CALVARIUM: No fracture. PARANASAL SINUSES: No fluid or mucosal thickening. SOFT TISSUES: No mass or hematoma. OTHER: No other significant finding. IMPRESSION: No acute intracranial pathology. Small vessel white matter disease. EVIDENCE OF ACUTE STROKE: NO. COMMENT: Quality ID # [id number]: Final reports with documentation of one or more dose reduction techniques (e.g., Automated exposure control, adjustment of the mA and/or kV according to patient size, use of iterative reconstruction technique) TECHNICAL DOCUMENTATION: JOB ID: [id number] [employer]- All Rights Reserved Reading location - IP/workstation name: [email or web address]
--- NOTE | 2019-02-21 20:43 | EKG REPORT ---
SEVERITY:- ABNORMAL ECG - SINUS RHYTHM FIRST DEGREE AV BLOCK NONSPECIFIC IVCD . : Confirmed by: Marco Somers MD 21-Feb-2019 20:42:47
[2019-02-21] MEDS ORDERED: OXYCODONE-ACETAMINOPHEN 5-325 MG TABLET PO ONE (21:41)
[2019-02-22 00:01] LABS: ARTERIAL BLOOD BASE EXCESS -3.5 mmol/L; ARTERIAL BLOOD HCO3 21.1 mmol/L (20-24); ARTERIAL BLOOD O2 SATURATION 92.4 % (94-98); ARTERIAL BLOOD PCO2 36.5 mmHg (35-45); ARTERIAL BLOOD PH 7.38 (7.35-7.45); ARTERIAL BLOOD PO2 64.6 mmHg (80-100); ARTERIAL BLOOD TOTAL CO2 22.2 mmol/L (21-25)
[2019-02-22 00:04] LABS: ARTERIAL BLOOD FIO2 ROOM AIR
[2019-02-22] MEDS ORDERED: DOXYCYCLINE HYCLATE 100 MG TABLET PO ONE (01:18)
[2019-02-22] MEDS ORDERED: CEFUROXIME 500 MG TABLET PO ONE ×2 (01:19→04:15)
[2019-02-22] MEDS ORDERED: LORAZEPAM INJ 2 MG/1 ML VIAL IV PRN (01:28)
[2019-02-22] MEDS ORDERED: CHLORPHENIRAMINE MALEATE 4 MG TABLET PO SCH (01:30)
[2019-02-22] MEDS ORDERED: DILTIAZEM HCL INJ 25 MG/5 ML VIAL IV ONE ×2 (02:03→02:06)
[2019-02-22] MEDS ORDERED: DILTIAZEM HCL/D5W 125 MG/125 ML RTUINJ IV PRN (02:03)
[2019-02-22] MEDS: DILTIAZEM HCL/D5W 125 MG/125 ML RTUINJ IV PRN ×2 (02:30→19:39)
[2019-02-22 02:49] LABS: FREE T4 (FREE THYROXINE) 0.94 ng/dL (0.78-2.19)
[2019-02-22 03:03] LABS: THYROID STIMULATING HORMONE 2.6 uIU/mL (0.47-4.68)
[2019-02-22] MEDS ORDERED: DIGOXIN INJ 0.5 MG/2 ML AMPULE ONE (03:15)
[2019-02-22] MEDS ORDERED: DIGOXIN INJ 0.5 MG/2 ML AMPULE IV ONE (03:24)
[2019-02-22] MEDS ORDERED: LORAZEPAM INJ 2 MG/1 ML VIAL IV ONE (03:32)
[2019-02-22 03:39] LABS: FREE T3 3.06 pg/mL (2.77-5.27)
[2019-02-22 03:49] LABS: PHOSPHORUS 3.4 mg/dL (2.5-4.5)
[2019-02-22] MEDS ORDERED: MAGNESIUM SULFATE 4 GM/100 ML RTUPB IV ONE (03:52)
[2019-02-22] MEDS ORDERED: METOPROLOL TARTRATE PF/INJ 5 MG/5 ML SDV IV ONE (04:02)
[2019-02-22] MEDS: MAGNESIUM SULFATE/D5W 1 GM/100 ML RTUPB IV SCH ×2 (04:21→05:33)
[2019-02-22] MEDS ORDERED: CEFUROXIME 500 MG TABLET ONE (04:36)
[2019-02-22] MEDS: CHLORPHENIRAMINE MALEATE 4 MG TABLET PO SCH ×3 (05:34→17:12)
[2019-02-22] MEDS: HEPARIN SOD (PORCINE) 5,000 UNIT/ML 1 ML VIAL SUBCUT SCH ×3 (05:34→21:13)
[2019-02-22] MEDS: DIAZEPAM 5 MG TABLET PO SCH ×3 (05:34→21:13)
[2019-02-22] MEDS ORDERED: IPRATROPIUM/ALBUTEROL 0.5-2.5 MG/3 ML AMPUL NEB SCH (08:00)
[2019-02-22] MEDS ORDERED: ONDANSETRON HCL INJ/PF 4 MG/2 ML SDV IV ONE (08:30)
[2019-02-22] MEDS: IPRATROPIUM/ALBUTEROL 0.5-2.5 MG/3 ML AMPUL NEB SCH ×2 (08:50→19:18)
--- NOTE | 2019-02-22 08:52 | PDOC PROGRESS REPORT ---
Subjective Progress Note for:: 02/22/19 Subjective:: The patient is a 48-year-old female, well-known to our service, with a past medical history significant for COPD, tobacco dependence with continuous use, alcohol dependence with continuous use, frequent admissions for alcohol withdrawal, PAF, and seizure disorder both related to alcohol withdrawal who presented to the emergency department today with COPD exacerbation and acute alcohol intoxication. Patient was seen in morning rounds while still in the emergency department. She was found to be sleeping soundly on nasal cannula. She did wake briefly when I set her name but quickly fell back to sleep. ROS not obtained. Nursing reported that the patient had been on BiPAP, woke to pull BiPAP off and then vomited a small volume. Will leave BiPAP on hold and titrate nasal cannula to maintain oxygen saturations. At the time of my visit, she appeared stable on nasal cannula and hopefully will not require additional BiPAP support. PRN antiemetics ordered. Reason For Visit: COPD EXACERBATION ALCOHOL WD Physical Exam Vital Signs: Temp Pulse Resp BP Pulse Ox 98.0 F 101 H 25 H 147/87 H 100 02/21/19 23:48 02/21/19 15:43 02/22/19 05:41 02/22/19 05:41 02/22/19 05:41 Intake & Output 02/21/19 02/22/19 02/23/19 06:59 06:59 06:59 Intake Total 4354.2 Output Total 2400 Balance 1954.2 Weight 104 kg General appearance: PRESENT: no acute distress, disheveled, morbidly obese, well-developed, well-nourished Head exam: PRESENT: atraumatic, normocephalic Eye exam: PRESENT: conjunctiva pink, EOMI, PERRLA. ABSENT: scleral icterus Ear exam: PRESENT: normal external ear exam Mouth exam: PRESENT: moist, tongue midline Respiratory exam: PRESENT: prolonged expiratory phas, rhonchi, symmetrical, unlabored, other - Supplemental oxygen by nasal cannula. ABSENT: rales, wheezes Cardiovascular exam: PRESENT: irregular rhythm, +S1, +S2. ABSENT: diastolic murmur, rubs, systolic murmur Pulses: PRESENT: normal dorsalis pedis pul Vascular exam: PRESENT: normal capillary refill Rectal exam: PRESENT: deferred Extremities exam: PRESENT: full ROM. ABSENT: calf tenderness, clubbing, pedal edema Neurological exam: PRESENT: CN II-XII grossly intact, other - Sleeping soundly. ABSENT: motor sensory deficit Skin exam: PRESENT: dry, intact, warm. ABSENT: cyanosis, rash Results Laboratory Results: 02/21/19 15:49 02/21/19 15:49 02/21/19 02/21/19 02/21/19 15:49 15:49 15:49 WBC 5.4 RBC 3.44 L Hgb 11.5 L Hct 33.7 L MCV 98 H MCH 33.5 H MCHC 34.2 RDW 13.8 Plt Count 229 Seg Neutrophils % 44.9 Carbonic Acid HCO3/H2CO3 Ratio ABG pH ABG pCO2 ABG pO2 ABG HCO3 ABG O2 Saturation ABG Base Excess FiO2 Sodium 144.1 Potassium 4.2 Chloride 108 H Carbon Dioxide 23 Anion Gap 13 BUN 13 Creatinine 0.98 Est GFR ( Amer) > 60 Glucose 100 Calcium 8.7 Phosphorus Magnesium Total Bilirubin 0.4 AST 49 H Alkaline Phosphatase 104 Total Protein 8.3 H Albumin 4.3 TSH Free T4 Free T3 pg/mL Urine Color YELLOW Urine Appearance CLEAR Urine pH 8.0 Ur Specific [place] 1.012 Urine Protein >=500 H Urine Glucose (UA) NEGATIVE Urine Ketones NEGATIVE Urine Blood NEGATIVE Urine Nitrite POSITIVE H Ur Leukocyte Esterase TRACE H Urine WBC (Auto) 12 Urine RBC (Auto) 2 02/21/19 02/21/19 02/21/19 15:49 15:49 23:43 WBC RBC Hgb Hct MCV MCH MCHC RDW Plt Count Seg Neutrophils % Carbonic Acid 1.10 HCO3/H2CO3 Ratio 19:1 ABG pH 7.38 ABG pCO2 36.5 ABG pO2 64.6 L ABG HCO3 21.1 ABG O2 Saturation 92.4 L ABG Base Excess -3.5 FiO2 ROOM AIR Sodium Potassium Chloride Carbon Dioxide Anion Gap BUN Creatinine Est GFR ( Amer) Glucose Calcium Phosphorus 3.4 Magnesium 1.2 L* Total Bilirubin AST Alkaline Phosphatase Total Protein Albumin TSH 2.60 Free T4 0.94 Free T3 pg/mL 3.06 Urine Color Urine Appearance Urine pH Ur Specific [place] Urine Protein Urine Glucose (UA) Urine Ketones Urine Blood Urine Nitrite Ur Leukocyte Esterase Urine WBC (Auto) Urine RBC (Auto) 02/21/19 15:49 Creatine Kinase 171 H Impressions: Ribs w/Chest X-Ray 02/21/19 15:51 IMPRESSION: Minimally displaced left lateral 11th rib fracture. No pneumothorax. Head CT 02/21/19 17:27 IMPRESSION: No acute intracranial pathology. Small vessel white matter disease. EVIDENCE OF ACUTE STROKE: NO. Cervical Spine CT 02/21/19 17:30 IMPRESSION: No fracture or static subluxation of the cervical spine. Assessment and Plan - Diagnosis (1) Atrial fibrillation with RVR Is this a current diagnosis for this admission?: Yes Plan: Patient is admitted to [facility] on continuous cardiac telemetry. Continue diltiazem drip; Patient previously prescribed Toprol 25 mg twice daily for rate control. Will resume home medication regiment once reconciled and patient is more awake. Patient is not a candidate for long-term anticoagulant due to alcohol dependence with continuous use. Management of COPD exacerbation and alcohol withdrawal as addressed elsewhere. (2) COPD exacerbation Is this a current diagnosis for this admission?: Yes Plan: Patient is empirically started on IV azithromycin. Supplemental oxygen and BiPAP as needed to maintain saturations greater than 89%. Scheduled and as needed nebulizer treatments. P.o. prednisone. Mucinex twice daily. Pulmonary toilet. (3) Alcohol intoxication Qualifiers: Complication of substance-induced condition: uncomplicated Qualified Code(s): F10.920 - Alcohol use, unspecified with intoxication, uncomplicated Is this a current diagnosis for this admission?: Yes Plan: Serum EtOH 292. Patient has a history of alcohol withdrawal with DTs and seizures. Continue IV fluids. IV banana bag. Scheduled and as needed benzodiazepines. Seizure, fall, aspiration precautions. (4) Morbid obesity with BMI of 40.0-44.9, adult Is this a current diagnosis for this admission?: Yes Plan: Lifestyle modification and dietary compliance to be reinforced. - Time Time Spent with patient: 25-34 minutes Medications reviewed and adjusted accordingly: Yes
[2019-02-22] MEDS: ONDANSETRON HCL INJ/PF 4 MG/2 ML SDV IV PRN (09:25)
[2019-02-22] MEDS: THIAMINE HCL 100 MG TABLET PO SCH (09:25)
[2019-02-22 09:30] LABS: HEMATOCRIT 37.3 % (36.0-47.0); HEMOGLOBIN 12.9 g/dL (12.0-15.5); MEAN CORPUSCULAR HEMOGLOBIN 33.3 pg (27.0-33.4); MEAN CORPUSCULAR HGB CONC 34.5 g/dL (32.0-36.0); MEAN CORPUSCULAR VOLUME 96 fl (80-97); PLATELET COUNT 173 10^3/uL (150-450); RED BLOOD COUNT 3.87 10^6/uL (3.72-5.28); RED CELL DISTRIBUTION WIDTH 13.6 % (11.5-14.0); WHITE BLOOD COUNT 7.4 10^3/uL (4.0-10.5)
[2019-02-22] MEDS: AZITHROMYCIN 500 MG in DEXTROSE 5%-WATER 250 ML IV SCH (09:39)
[2019-02-22] MEDS: ACETAMINOPHEN 325 MG TABLET PO PRN ×2 (09:51→19:39)
[2019-02-22 09:52] LABS: ANION GAP 11 (5-19); BLOOD UREA NITROGEN 10 mg/dL (7-20); CALCIUM 8.5 mg/dL (8.4-10.2); CARBON DIOXIDE 25 mmol/L (22-30); CHLORIDE 101 mmol/L (98-107); GLUCOSE 118 mg/dL (75-110); POTASSIUM 4.3 mmol/L (3.6-5.0)
[2019-02-22] MEDS ORDERED: DIAZEPAM 5 MG TABLET PO SCH (10:00)
[2019-02-22] MEDS: LORAZEPAM INJ 2 MG/1 ML VIAL IV PRN (16:04)
[2019-02-22] MEDS: HYDRALAZINE HCL INJ/PF 20 MG/1 ML SDV IV PRN (21:14)
--- NOTE | 2019-02-22 22:16 | EKG REPORT ---
SEVERITY:- ABNORMAL ECG - ATRIAL FIBRILLATION, V-RATE 114-181 VENTRICULAR PREMATURE COMPLEX NONSPECIFIC REPOL ABNORMALITY, DIFFUSE LEADS BORDERLINE PROLONGED QT INTERVAL : Confirmed by: Hudson Alegria 22-Feb-2019 22:16:06
[2019-02-23] MEDS: LORAZEPAM INJ 2 MG/1 ML VIAL IV PRN ×4 (00:48→23:53)
[2019-02-23] MEDS: CHLORPHENIRAMINE MALEATE 4 MG TABLET PO SCH (00:49)
[2019-02-23] MEDS: DIAZEPAM 5 MG TABLET PO SCH ×3 (05:14→22:08)
[2019-02-23] MEDS: HEPARIN SOD (PORCINE) 5,000 UNIT/ML 1 ML VIAL SUBCUT SCH ×3 (05:15→22:09)
--- NOTE | 2019-02-23 06:37 | PDOC H&P ---
History of Present Illness Admission Date/PCP: 02/22/19 01:39 BERNIE SAVAGE MD Patient complains of: Alcohol withdrawal History of Present Illness: FABIANA HEAD is a 48 year old female with a past medical history of severe alcoholism, alcohol withdrawal seizures, paroxysmal atrial fibrillation without anticoagulation. Hypomagnesemia, hypokalemia, depression, hypertension and morbid obesity. She presents with shortness of breath, diaphoresis and tremor a nd acute alcohol withdrawal. She receives albuterol, Atrovent, Ativan and referred to the hospitalist for admission. She denies chest pain nausea vomiting. Past Medical History Cardiac Medical History: Reports: Myocardial Infarction - at 22 y/o effedrine in duced, Hyperlipidema, Hypertension Denies: Atrial Fibrillation, Congestive Heart Failure, Coronary Artery Disease, Peripheral Vascular Disease, Pulmonary Embolism, Heart Murmur Pulmonary Medical History: Reports: Asthma, Chronic Obstructive Pulmonary Disease (COPD) Denies: Bronchitis, Pneumonia, Respiratory Failure, Sleep Apnea, Tuberculosis Neurological Medical History: Reports: Seizures - With alcohol withdrawal Denies: Migraine Endocrine Medical History: Reports: Hypothyroidism Denies: Diabetes Mellitus Type 1, Diabetes Mellitus Type 2, Hyperthyroidism Renal/ Medical History: Denies: End Stage Renal Disease GI Medical History: Reports: Gastroesophageal Reflux Disease Denies: Cirrhosis, Crohn's Disease, Hepatitis, Hiatal Hernia, Ulcerative Colitis Musculoskeltal Medical History: Denies: Arthritis, Fibromyalgia Skin Medical History: Denies: Eczema, Psoriasis Psychiatric Medical History: Reports: Bipolar Disorder, Depression Hematology: Denies: Anemia, Hemophilia, Bleeding Tendencies, Heparin Induced Thrombocytopenia Past Surgical History Past Surgical History: Reports: Appendectomy, Cholecystectomy, Orthopedic Surgery - right knee, Tonsillectomy, Tubal Ligation Denies: Amputation, Section, Hysterectomy, Mastectomy Social History Information Source: Patient Smoking Status: Current Every Day Smoker Frequency of Alcohol Use: Heavy Hx Recreational Drug Use: Yes Drugs: None Hx Prescription Drug Abuse: No - Advance Directive Resuscitation Status: Full Code Family History Family History: Malignancy Parental Family History Reviewed: Yes Children Family History Reviewed: Yes Sibling(s) Family History Reviewed.: Yes Medication/Allergy Home Medications: Albuterol Sulfate [Proair HFA Inhalation Aerosol 8.5 gm MDI] 2 puff IH Q4HP PRN 01/15/19 Alprazolam [Xanax 0.5 mg Tablet] 0.5 mg PO TIDP PRN 01/15/19 Clonidine HCl [Catapres 0.1 mg Tablet] 0.1 mg PO BID 01/15/19 Hydrochlorothiazide [Hydrodiuril 25 mg Tablet] 25 mg PO DAILY 01/15/19 Ibuprofen [Motrin 600 mg Tablet] 600 mg PO Q8HP PRN 01/15/19 Levothyroxine Sodium 88 mcg PO Q6AM 01/15/19 Lisinopril [Prinivil 10 mg Tablet] 10 mg PO DAILY 01/15/19 Magnesium Oxide [Mag-Ox 400 mg Tablet] 400 mg PO DAILY 01/15/19 Metoprolol Tartrate [Lopressor 25 mg Tablet] 25 mg PO BID 01/15/19 Potassium Chloride [K-Tab ER] 10 meq PO BID 01/15/19 Thiamine Mononitrate [Vitamin B-1] 100 mg PO DAILY 01/15/19 Venlafaxine HCl ER [Effexor Xr 37.5 mg Cap.sr] 37.5 mg PO DAILY 01/15/19 Fluticasone Propion/Salmeterol [Wixela 250-50 Inhub] 1 each IH BID 02/22/19 Nystatin [Mycostatin Cream] 1 applic TP TID 02/22/19 Allergies/Adverse Reactions: No Known Allergies Allergy (Verified 09/18/18 14:15) Review of Systems Constitutional: ABSENT: chills, fever(s), headache(s), weight gain, weight loss Eyes: ABSENT: visual disturbances Ears: ABSENT: hearing changes Cardiovascular: ABSENT: chest pain, dyspnea on exertion, edema, orthropnea, palpitations Respiratory: ABSENT: cough, hemoptysis Gastrointestinal: ABSENT: abdominal pain, constipation, diarrhea, hematemesis, hematochezia, nausea, vomiting Genitourinary: ABSENT: dysuria, hematuria Musculoskeletal: ABSENT: joint swelling Integumentary: ABSENT: rash, wounds Neurological: ABSENT: abnormal gait, abnormal speech, confusion, dizziness, focal weakness, syncope Psychiatric: ABSENT: anxiety, depression, homidical ideation, suicidal ideation Endocrine: ABSENT: cold intolerance, heat intolerance, polydipsia, polyuria Hematologic/Lymphatic: ABSENT: easy bleeding, easy bruising Physical Exam Vital Signs: Temp Pulse Resp BP Pulse Ox 97.6 F 88 22 H 144/82 H 98 02/23/19 03:30 02/23/19 04:00 02/23/19 03:30 02/23/19 04:00 02/23/19 03:30 Intake & Output 02/21/19 02/22/19 02/23/19 11:59 11:59 11:59 Intake Total 4604.2 194 Output Total 2400 1000 Balance 2204.2 -806 Weight 104 kg 100.6 kg General appearance: PRESENT: disheveled, obese, severe distress, well-developed, well-nourished Head exam: PRESENT: atraumatic, normocephalic Eye exam: PRESENT: conjunctiva pink, EOMI, PERRLA. ABSENT: scleral icterus Ear exam: PRESENT: normal external ear exam Mouth exam: PRESENT: moist, tongue midline Neck exam: ABSENT: carotid bruit, JVD, lymphadenopathy, thyromegaly Respiratory exam: PRESENT: accessory muscle use, prolonged expiratory phas, tachypnea. ABSENT: rales, rhonchi, wheezes Cardiovascular exam: PRESENT: irregular rhythm, tachycardia. ABSENT: diastolic murmur, rubs, systolic murmur Pulses: PRESENT: normal dorsalis pedis pul Vascular exam: PRESENT: normal capillary refill GI/Abdominal exam: PRESENT: normal bowel sounds, soft. ABSENT: distended, guarding, mass, organolmegaly, rebound, tenderness Rectal exam: PRESENT: deferred Extremities exam: PRESENT: full ROM. ABSENT: calf tenderness, clubbing, pedal edema Neurological exam: PRESENT: alert, awake, oriented to person, oriented to place, oriented to time, oriented to situation, CN II-XII grossly intact. ABSENT: motor sensory deficit Psychiatric exam: PRESENT: appropriate affect, normal mood. ABSENT: homicidal ideation, suicidal ideation Skin exam: PRESENT: dry, intact, warm. ABSENT: cyanosis, rash Results Laboratory Results: 02/22/19 09:16 02/22/19 09:16 02/22/19 02/22/19 02/22/19 09:16 09:16 09:16 WBC 7.4 RBC 3.87 Hgb 12.9 Hct 37.3 MCV 96 MCH 33.3 MCHC 34.5 RDW 13.6 Plt Count 173 Sodium 136.5 L Potassium 4.3 Chloride 101 Carbon Dioxide 25 Anion Gap 11 BUN 10 Creatinine 0.85 Est GFR ( Amer) > 60 Glucose 118 H Calcium 8.5 Magnesium 1.8 02/21/19 15:49 Creatine Kinase 171 H Impressions: Ribs w/Chest X-Ray 02/21/19 15:51 IMPRESSION: Minimally displaced left lateral 11th rib fracture. No pneumothorax. Head CT 02/21/19 17:27 IMPRESSION: No acute intracranial pathology. Small vessel white matter disease. EVIDENCE OF ACUTE STROKE: NO. Cervical Spine CT 02/21/19 17:30 IMPRESSION: No fracture or static subluxation of the cervical spine. Assessment and Plan - Diagnosis (1) Atrial fibrillation with RVR Is this a current diagnosis for this admission?: Yes Plan: IMCU admission, IV Cardizem, optimize alcohol withdrawal status with benzodiazepine, serial cardiac enzymes. Not a candidate for anticoagulation secondary to severe alcoholism. (2) COPD (chronic obstructive pulmonary disease) Qualifiers: COPD type: COPD with acute exacerbation Qualified Code(s): J44.1 - Chronic obstructive pulmonary disease with (acute) exacerbation Is this a current diagnosis for this admission?: Yes Plan: Atrovent, Xopenex, incentive spirometry and flutter valve (3) Alcohol withdrawal Qualifiers: Complication of substance-induced condition: with unspecified complication Qualified Code(s): F10.239 - Alcohol dependence with withdrawal, unspecified Is this a current diagnosis for this admission?: Yes Plan: Thiamine, folate, scheduled Valium and as needed Ativan. May require upgrade to ICU for IV Ativan. - Time Time Spent with patient: 25-34 minutes - Inpatient Certification Medical Necessity: Need Close Monitoring Due to Risk of Patient Decompensation
[2019-02-23] MEDS: HYDRALAZINE HCL INJ/PF 20 MG/1 ML SDV IV PRN (08:18)
[2019-02-23] MEDS: DILTIAZEM HCL/D5W 125 MG/125 ML RTUINJ IV PRN (08:49)
[2019-02-23] MEDS: IPRATROPIUM/ALBUTEROL 0.5-2.5 MG/3 ML AMPUL NEB SCH ×2 (09:00→20:34)
[2019-02-23] MEDS: ACETAMINOPHEN 325 MG TABLET PO PRN (09:19)
[2019-02-23] MEDS: THIAMINE HCL 100 MG TABLET PO SCH (09:20)
[2019-02-23] MEDS: AZITHROMYCIN 500 MG in DEXTROSE 5%-WATER 250 ML IV SCH (09:20)
--- NOTE | 2019-02-23 13:44 | PDOC PROGRESS REPORT ---
Subjective Progress Note for:: 02/23/19 Subjective:: Complaining of pain in the left ribs. Patient sustained 02/27 rib fracture. Tremulousness noted between doses of benzodiazepine. Reason For Visit: COPD EXACERBATION ALCOHOL WD Physical Exam Vital Signs: Temp Pulse Resp BP Pulse Ox 98.0 F 112 H 18 148/99 H 96 02/23/19 11:57 02/23/19 11:57 02/23/19 11:57 02/23/19 11:57 02/23/19 11:57 Intake & Output 02/22/19 02/23/19 02/24/19 06:59 06:59 06:59 Intake Total 4354.2 444 583 Output Total 2400 1200 Balance 1954.2 -756 583 Weight 104 kg 100 kg General appearance: PRESENT: cooperative, mild distress, morbidly obese, well- developed Head exam: PRESENT: atraumatic, normocephalic Respiratory exam: PRESENT: chest wall tenderness - Left anterior axillary line, clear to auscultation thomas, symmetrical, unlabored. ABSENT: rales, rhonchi, tachypnea, wheezes Cardiovascular exam: PRESENT: irregular rhythm GI/Abdominal exam: PRESENT: normal bowel sounds, soft, tenderness - Left side (related to rib fracture), other - Protuberant abdomen Rectal exam: PRESENT: deferred Neurological exam: PRESENT: alert, awake, oriented to person, oriented to place, oriented to situation Psychiatric exam: PRESENT: anxious - Secondary to pain. ABSENT: agitated Results Laboratory Results: 02/22/19 09:16 02/22/19 09:16 02/21/19 15:49 Creatine Kinase 171 H Impressions: Ribs w/Chest X-Ray 02/21/19 15:51 IMPRESSION: Minimally displaced left lateral 11th rib fracture. No pneumothorax. Head CT 02/21/19 17:27 IMPRESSION: No acute intracranial pathology. Small vessel white matter disease. EVIDENCE OF ACUTE STROKE: NO. Cervical Spine CT 02/21/19 17:30 IMPRESSION: No fracture or static subluxation of the cervical spine. Assessment and Plan - Diagnosis (1) Atrial fibrillation with RVR Is this a current diagnosis for this admission?: Yes Plan: Convert from diltiazem infusion to oral dosing. Resume metoprolol. Monitor blood pressure. (2) COPD exacerbation Is this a current diagnosis for this admission?: Yes Plan: Continue current regimen. (3) Alcohol intoxication Qualifiers: Complication of substance-induced condition: uncomplicated Qualified Code(s): F10.920 - Alcohol use, unspecified with intoxication, uncomplicated Is this a current diagnosis for this admission?: Yes Plan: Treat withdrawal. Encourage cessation. Chronic long-term issue with this patient. Consider outpatient treatment center (4) Alcohol withdrawal Qualifiers: Complication of substance-induced condition: uncomplicated Qualified Code(s): F10.230 - Alcohol dependence with withdrawal, uncomplicated Is this a current diagnosis for this admission?: Yes Plan: Continue benzodiazepine therapy as well as thiamine (5) Morbid obesity with BMI of 40.0-44.9, adult Is this a current diagnosis for this admission?: Yes Plan: Encourage weight loss. Alcohol cessation should help. - Time Time Spent with patient: 15-24 minutes
[2019-02-23] MEDS: DILTIAZEM HCL 60 MG TABLET PO SCH ×2 (17:14→23:53)
[2019-02-23] MEDS ORDERED: METOPROLOL TARTRATE 25 MG TABLET PO SCH (18:00)
[2019-02-23] MEDS: ONDANSETRON HCL INJ/PF 4 MG/2 ML SDV IV PRN (21:42)
[2019-02-23] MEDS: METOPROLOL TARTRATE 25 MG TABLET PO SCH (22:08)
[2019-02-24] MEDS: LEVOTHYROXINE SODIUM 0.088 MG TABLET PO SCH (05:37)
[2019-02-24] MEDS: DILTIAZEM HCL 60 MG TABLET PO SCH ×4 (05:38→21:16)
[2019-02-24] MEDS: HEPARIN SOD (PORCINE) 5,000 UNIT/ML 1 ML VIAL SUBCUT SCH ×3 (05:38→22:46)
[2019-02-24] MEDS: DIAZEPAM 5 MG TABLET PO SCH ×3 (05:38→22:44)
[2019-02-24 05:52] LABS: ANION GAP 9 (5-19); BLOOD UREA NITROGEN 24 mg/dL (7-20); CALCIUM 9.4 mg/dL (8.4-10.2); CARBON DIOXIDE 25 mmol/L (22-30); CHLORIDE 104 mmol/L (98-107); GLUCOSE 92 mg/dL (75-110); POTASSIUM 3.7 mmol/L (3.6-5.0)
[2019-02-24] MEDS: IPRATROPIUM/ALBUTEROL 0.5-2.5 MG/3 ML AMPUL NEB SCH ×2 (07:47→20:06)
[2019-02-24] MEDS: THIAMINE HCL 100 MG TABLET PO SCH (09:51)
[2019-02-24] MEDS: AZITHROMYCIN 500 MG in DEXTROSE 5%-WATER 250 ML IV SCH (09:51)
[2019-02-24] MEDS: MAGNESIUM OXIDE 400 MG TABLET PO SCH (09:52)
[2019-02-24] MEDS: HYDROCHLOROTHIAZIDE 25 MG TABLET PO SCH (09:52)
[2019-02-24] MEDS: METOPROLOL TARTRATE 25 MG TABLET PO SCH ×2 (09:52→22:45)
[2019-02-24] MEDS: VENLAFAXINE HCL 37.5 MG CAP.SR.24H PO SCH (09:52)
--- NOTE | 2019-02-24 12:36 | PDOC PROGRESS REPORT ---
Subjective Progress Note for:: 02/24/19 Subjective:: The patient is actually sitting up in bed. She just finished her lunch. She states that her left side does not hurt as much. She appears to be more comfortable than yesterday. Reason For Visit: COPD EXACERBATION ALCOHOL WD Physical Exam Vital Signs: Temp Pulse Resp BP Pulse Ox 98.2 F 68 16 116/62 100 02/24/19 07:56 02/24/19 07:56 02/24/19 07:56 02/24/19 07:56 02/24/19 07:56 Intake & Output 02/23/19 02/24/19 02/25/19 06:59 06:59 06:59 Intake Total 444 1620 Output Total 1200 1050 Balance -756 570 Weight 100 kg 99.6 kg General appearance: PRESENT: no acute distress, cooperative, morbidly obese, well-developed Head exam: PRESENT: atraumatic Ear exam: PRESENT: normal external ear exam. ABSENT: bleeding, drainage Mouth exam: PRESENT: moist, tongue midline Respiratory exam: PRESENT: clear to auscultation thomas - With limited inspiratory phase secondary to rib discomfort, symmetrical, unlabored. ABSENT: accessory muscle use, rhonchi, tachypnea, wheezes Cardiovascular exam: PRESENT: irregular rhythm. ABSENT: tachycardia GI/Abdominal exam: PRESENT: normal bowel sounds, soft, other - Protuberant abdomen. ABSENT: guarding, tenderness Rectal exam: PRESENT: deferred Gentrourinary exam: PRESENT: indwelling catheter Neurological exam: PRESENT: alert, awake, oriented to person, oriented to place, oriented to situation, CN II-XII grossly intact Psychiatric exam: PRESENT: flat affect. ABSENT: agitated, anxious Skin exam: PRESENT: dry, normal color, warm. ABSENT: rash Results Laboratory Results: 02/22/19 09:16 02/24/19 04:55 02/24/19 04:55 Sodium 137.9 Potassium 3.7 Chloride 104 Carbon Dioxide 25 Anion Gap 9 BUN 24 H Creatinine 1.28 H Est GFR ( Amer) 54 L Glucose 92 Calcium 9.4 Magnesium 1.5 L 02/21/19 15:49 Clean Catch Midstream Urine Culture - Final Escherichia Coli 02/21/19 15:49 Creatine Kinase 171 H Impressions: Ribs w/Chest X-Ray 02/21/19 15:51 IMPRESSION: Minimally displaced left lateral 11th rib fracture. No pneumothorax. Head CT 02/21/19 17:27 IMPRESSION: No acute intracranial pathology. Small vessel white matter disease. EVIDENCE OF ACUTE STROKE: NO. Cervical Spine CT 02/21/19 17:30 IMPRESSION: No fracture or static subluxation of the cervical spine. Assessment and Plan - Diagnosis (1) Atrial fibrillation with RVR Is this a current diagnosis for this admission?: Yes Plan: Stable on diltiazem 60 mg 4 times a day and metoprolol. Convert diltiazem to long-acting 240 mg (2) COPD exacerbation Is this a current diagnosis for this admission?: Yes Plan: Stable. Return to home inhaler regimen at discharge (3) Alcohol intoxication Qualifiers: Complication of substance-induced condition: uncomplicated Qualified Code(s): F10.920 - Alcohol use, unspecified with intoxication, uncomplicated Is this a current diagnosis for this admission?: Yes Plan: Resolved. Encourage cessation (4) Alcohol withdrawal Qualifiers: Complication of substance-induced condition: uncomplicated Qualified Code(s): F10.230 - Alcohol dependence with withdrawal, uncomplicated Is this a current diagnosis for this admission?: Yes Plan: Continue benzodiazepine therapy. 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 Will start on statin therapy to reduce risk and improve lipids. (7) Hypertension Qualifiers: Hypertension type: essential hypertension Qualified Code(s): I10 - Essential (primary) hypertension Is this a current diagnosis for this admission?: Yes Plan: Blood pressure has been well controlled on the diltiazem and metoprolol. Will likely discharge off of the lisinopril at this time. (8) UTI (urinary tract infection) Qualifiers: Urinary tract infection type: acute cystitis Hematuria presence: with hematuria Qualified Code(s): N30.01 - Acute cystitis with hematuria Is this a current diagnosis for this admission?: Yes Plan: E. coli isolated. Sensitive to Bactrim. Initiated Bactrim DS 1 tablet twice daily (9) Left rib fracture Qualifiers: Encounter type: initial encounter Rib fracture type: single rib Fracture type: closed Qualified Code(s): S22.32XA - Fracture of one rib, left side, initial encounter for closed fracture Is this a current diagnosis for this admission?: Yes Plan: Continue current analgesia - Time Time Spent with patient: 15-24 minutes Medications reviewed and adjusted accordingly: Yes Anticipated discharge: Home
[2019-02-24] MEDS: NORMAL SALINE 1000 ML 1,000 ML IV PRN ×2 (13:32→22:46)
[2019-02-24] MEDS: SULFAMETHOXAZOLE/TRIMETHOPRIM 800-160 MG TABLET PO SCH (18:27)
[2019-02-24] MEDS: ATORVASTATIN CALCIUM 20 MG TABLET PO SCH (22:44)
[2019-02-25] MEDS: DILTIAZEM HCL 60 MG TABLET PO SCH (00:57)
[2019-02-25] MEDS: ACETAMINOPHEN 325 MG TABLET PO PRN (04:37)
[2019-02-25 05:04] LABS: HEMATOCRIT 33.8 % (36.0-47.0); HEMOGLOBIN 11.7 g/dL (12.0-15.5); MEAN CORPUSCULAR HEMOGLOBIN 33.4 pg (27.0-33.4); MEAN CORPUSCULAR HGB CONC 34.5 g/dL (32.0-36.0); MEAN CORPUSCULAR VOLUME 97 fl (80-97); PLATELET COUNT 174 10^3/uL (150-450); RED BLOOD COUNT 3.49 10^6/uL (3.72-5.28); RED CELL DISTRIBUTION WIDTH 13.9 % (11.5-14.0); WHITE BLOOD COUNT 9.5 10^3/uL (4.0-10.5)
[2019-02-25 05:28] LABS: ANION GAP 12 (5-19); BLOOD UREA NITROGEN 21 mg/dL (7-20); CARBON DIOXIDE 23 mmol/L (22-30); CHLORIDE 102 mmol/L (98-107); GLUCOSE 93 mg/dL (75-110); POTASSIUM 3.8 mmol/L (3.6-5.0)
[2019-02-25] MEDS: NORMAL SALINE 1000 ML 1,000 ML IV PRN (06:44)
[2019-02-25] MEDS: HEPARIN SOD (PORCINE) 5,000 UNIT/ML 1 ML VIAL SUBCUT SCH ×3 (06:46→22:59)
[2019-02-25] MEDS: LEVOTHYROXINE SODIUM 0.088 MG TABLET PO SCH (06:46)
[2019-02-25] MEDS: IPRATROPIUM/ALBUTEROL 0.5-2.5 MG/3 ML AMPUL NEB SCH ×2 (08:07→20:38)
[2019-02-25] MEDS ORDERED: MAGNESIUM SULFATE/D5W 1 GM/100 ML RTUPB IV ONE (08:25)
[2019-02-25] MEDS: SULFAMETHOXAZOLE/TRIMETHOPRIM 800-160 MG TABLET PO SCH ×2 (10:49→17:59)
[2019-02-25] MEDS: METOPROLOL TARTRATE 25 MG TABLET PO SCH (10:49)
[2019-02-25] MEDS: VENLAFAXINE HCL 37.5 MG CAP.SR.24H PO SCH (10:49)
[2019-02-25] MEDS: DIAZEPAM 5 MG TABLET PO SCH (10:49)
[2019-02-25] MEDS: MAGNESIUM OXIDE 400 MG TABLET PO SCH (10:49)
[2019-02-25] MEDS: HYDROCHLOROTHIAZIDE 25 MG TABLET PO SCH (10:49)
[2019-02-25] MEDS: THIAMINE HCL 100 MG TABLET PO SCH (10:49)
[2019-02-25] MEDS: DILTIAZEM HCL 240 MG CAPSULE.CR PO SCH (10:50)
--- NOTE | 2019-02-25 17:19 | PDOC PROGRESS REPORT ---
Subjective Progress Note for:: 02/25/19 Subjective:: The patient is sitting up in bed. She has finished her meal. She reports having an episode this morning where she believed that she was home, woke up and saw ambulance people. She was reminded that she was in the hospital and that the people were in fact the nurses. This transient episode resolved spontaneously. She is still having some rib pain. Reason For Visit: COPD EXACERBATION ALCOHOL WD Physical Exam Vital Signs: Temp Pulse Resp BP Pulse Ox 97.5 F 63 18 129/81 H 95 02/25/19 12:06 02/25/19 14:00 02/25/19 12:06 02/25/19 12:06 02/25/19 12:06 Intake & Output 02/24/19 02/25/19 02/26/19 06:59 06:59 06:59 Intake Total 1620 3180 100 Output Total 1050 100 Balance 570 3080 100 Weight 99.6 kg 100.5 kg General appearance: PRESENT: cooperative, mild distress, morbidly obese, well- developed Head exam: PRESENT: atraumatic, normocephalic Eye exam: PRESENT: conjunctiva pink. ABSENT: scleral icterus Ear exam: PRESENT: normal external ear exam. ABSENT: bleeding, drainage Respiratory exam: PRESENT: clear to auscultation thomas, symmetrical, unlabored. ABSENT: accessory muscle use, rales, rhonchi, tachypnea, wheezes Cardiovascular exam: PRESENT: RRR, +S1, +S2 GI/Abdominal exam: PRESENT: normal bowel sounds, soft, other - Protuberant abdomen. ABSENT: guarding, tenderness Rectal exam: PRESENT: deferred Extremities exam: PRESENT: +1 edema Musculoskeletal exam: PRESENT: ambulatory. ABSENT: deformity Neurological exam: PRESENT: alert, awake, oriented to person, oriented to place, oriented to time, oriented to situation, CN II-XII grossly intact Psychiatric exam: PRESENT: flat affect. ABSENT: agitated, anxious Focused psych exam: ABSENT: delusional, restlessness Skin exam: PRESENT: dry, warm. ABSENT: erythema, rash Results Laboratory Results: 02/25/19 04:20 02/25/19 04:20 02/25/19 02/25/19 04:20 04:20 WBC 9.5 RBC 3.49 L Hgb 11.7 L Hct 33.8 L MCV 97 MCH 33.4 MCHC 34.5 RDW 13.9 Plt Count 174 Sodium 136.8 L Potassium 3.8 Chloride 102 Carbon Dioxide 23 Anion Gap 12 BUN 21 H Creatinine 1.17 Est GFR ( Amer) 59 L Glucose 93 Calcium 9.0 Magnesium 1.3 L 02/21/19 15:49 Creatine Kinase 171 H Impressions: Ribs w/Chest X-Ray 02/21/19 15:51 IMPRESSION: Minimally displaced left lateral 11th rib fracture. No pneumothorax. Head CT 02/21/19 17:27 IMPRESSION: No acute intracranial pathology. Small vessel white matter disease. EVIDENCE OF ACUTE STROKE: NO. Cervical Spine CT 02/21/19 17:30 IMPRESSION: No fracture or static subluxation of the cervical spine. Assessment and Plan - Diagnosis (1) Atrial fibrillation with RVR Is this a current diagnosis for this admission?: Yes Plan: Excellent control on 240 mg of diltiazem. We will convert metoprolol to long- acting form. (2) COPD exacerbation Is this a current diagnosis for this admission?: Yes Plan: Resolved. Resume inhaler regimen at discharge. (3) Alcohol intoxication Qualifiers: Complication of substance-induced condition: uncomplicated Qualified Code(s): F10.920 - Alcohol use, unspecified with intoxication, uncomplicated Is this a current diagnosis for this admission?: Yes Plan: Resolved (4) Alcohol withdrawal Qualifiers: Complication of substance-induced condition: uncomplicated Qualified Code(s): F10.230 - Alcohol dependence with withdrawal, uncomplicated Is this a current diagnosis for this admission?: Yes Plan: Resolved. The episode this morning I believe was more related to poor sleep kurt n actual delirium (5) Morbid obesity with BMI of 40.0-44.9, adult Is this a current diagnosis for this admission?: Yes Plan: Encourage weight loss (6) Hyperlipidemia Qualifiers: Hyperlipidemia type: mixed hyperlipidemia Qualified Code(s): E78.2 - Mixed hyperlipidemia Is this a current diagnosis for this admission?: Yes Plan: Continue current regimen (7) Hypertension Qualifiers: Hypertension type: essential hypertension Qualified Code(s): I10 - Essential (primary) hypertension Is this a current diagnosis for this admission?: Yes Plan: Excellent blood pressure control on current regimen (8) UTI (urinary tract infection) Qualifiers: Urinary tract infection type: acute cystitis Hematuria presence: with hematuria Qualified Code(s): N30.01 - Acute cystitis with hematuria Is this a current diagnosis for this admission?: Yes Plan: Complete antibiotic therapy as ordered (9) Left rib fracture Qualifiers: Encounter type: initial encounter Rib fracture type: single rib Fracture type: closed Qualified Code(s): S22.32XA - Fracture of one rib, left side, initial encounter for closed fracture Is this a current diagnosis for this admission?: Yes Plan: Pain is slowly improving. Repeat chest x-ray in 3 to 4 weeks if necessary. (10) ALEJA (acute kidney injury) Is this a current diagnosis for this admission?: Yes Plan: Creatinine is now normal. Encourage p.o. fluids. - Plan Summary Summary: 02/25/2019-the patient is no longer intoxicated or experiencing alcohol withdrawal. Her atrial fibrillation is well controlled. She appears to be on adequate medication regimen at this time. The plan is to discharge home tomorrow and follow-up with primary care provider next week. - Time Time Spent with patient: 15-24 minutes Medications reviewed and adjusted accordingly: Yes Anticipated discharge: Home
[2019-02-25] MEDS ORDERED: LORAZEPAM INJ 2 MG/1 ML VIAL IV PRN (17:20)
[2019-02-25] MEDS ORDERED: DIAZEPAM 5 MG TABLET PO SCH (22:00)
[2019-02-25] MEDS: ATORVASTATIN CALCIUM 20 MG TABLET PO SCH (22:59)
[2019-02-26] MEDS: HEPARIN SOD (PORCINE) 5,000 UNIT/ML 1 ML VIAL SUBCUT SCH (05:40)
[2019-02-26] MEDS: LEVOTHYROXINE SODIUM 0.088 MG TABLET PO SCH (05:40)
[2019-02-26] MEDS: IPRATROPIUM/ALBUTEROL 0.5-2.5 MG/3 ML AMPUL NEB SCH (07:56)
--- NOTE | 2019-02-26 09:54 | PDOC DISCHARGE SUMMARY ---
Impression - Admit/DC Date/PCP Admission Date/Primary Care Provider: 02/22/19 01:39 BERNIE SAVAGE MD Discharge Date: 02/26/19 - Discharge Diagnosis (1) Atrial fibrillation with RVR Is this a current diagnosis for this admission?: Yes (2) COPD exacerbation Is this a current diagnosis for this admission?: Yes (3) Alcohol intoxication Is this a current diagnosis for this admission?: Yes (4) Alcohol withdrawal Is this a current diagnosis for this admission?: Yes (5) Morbid obesity with BMI of 40.0-44.9, adult Is this a current diagnosis for this admission?: Yes (6) Hyperlipidemia Is this a current diagnosis for this admission?: Yes (7) Hypertension Is this a current diagnosis for this admission?: Yes (8) UTI (urinary tract infection) Is this a current diagnosis for this admission?: Yes (9) Left rib fracture Is this a current diagnosis for this admission?: Yes (10) ALEJA (acute kidney injury) Is this a current diagnosis for this admission?: Yes - Assessment Summary: 02/25/2019-the patient is no longer intoxicated or experiencing alcohol withdrawal. Her atrial fibrillation is well controlled. She appears to be on adequate medication regimen at this time. The plan is to discharge home tomorrow and follow-up with primary care provider next week. - Additional Information Resuscitation Status: Full Code Discharge Diet: Cardiac, Other (Comments) - No alcohol Discharge Activity: Activity As Tolerated Referrals: BERNIE SAVAGE MD [Primary Care Provider] - 03/04/19 1:45 pm Prescriptions: Diltiazem HCl [Cardizem Cd 240 mg Capsule.cr] 240 mg PO DAILY #15 capsule.cr Venlafaxine HCl ER [Effexor Xr 37.5 mg Cap.sr] 37.5 mg PO DAILY #15 cap.sr.24h Apixaban [Eliquis 5 mg Tablet] 5 mg PO BID #30 tablet Atorvastatin Calcium [Lipitor 20 mg Tablet] 20 mg PO QHS #15 tablet Sulfamethoxazole/Trimethoprim [Septra-Ds 800-160 mg Tablet] 1 tab PO BID #6 tablet Metoprolol Succinate [Toprol Xl 25 mg Tab.sr] 25 mg PO DAILY #15 tab.sr.24h Home Medications: Albuterol Sulfate [Proair HFA Inhalation Aerosol 8.5 gm MDI] 2 puff IH Q4HP PRN 11/29/19 Alprazolam [Xanax 0.5 mg Tablet] 0.5 mg PO TIDP PRN 01/15/19 Hydrochlorothiazide [Hydrodiuril 25 mg Tablet] 25 mg PO DAILY 01/15/19 Levothyroxine Sodium 88 mcg PO Q6AM 01/15/19 Lisinopril [Prinivil 10 mg Tablet] 10 mg PO DAILY 01/15/19 Magnesium Oxide [Mag-Ox 400 mg Tablet] 400 mg PO DAILY 01/15/19 Potassium Chloride [K-Tab ER] 10 meq PO BID 01/15/19 Thiamine Mononitrate [Vitamin B-1] 100 mg PO DAILY 01/15/19 Fluticasone Propion/Salmeterol [Wixela 250-50 Inhub] 1 each IH BID 02/22/19 Nystatin [Mycostatin Cream 15 gm] 1 applic TP TID 02/22/19 Apixaban [Eliquis 5 mg Tablet] 5 mg PO BID #30 tablet 02/26/19 Atorvastatin Calcium [Lipitor 20 mg Tablet] 20 mg PO QHS #15 tablet 02/26/19 Diltiazem HCl [Cardizem Cd 240 mg Capsule.cr] 240 mg PO DAILY #15 capsule.cr 02/26/19 Metoprolol Succinate [Toprol Xl 25 mg Tab.sr] 25 mg PO DAILY #15 tab.sr.24h 02/26/19 Sulfamethoxazole/Trimethoprim [Septra-Ds 800-160 mg Tablet] 1 tab PO BID #6 tablet 02/26/19 Thiamine HCl [Thiamine 100 mg Tablet] 100 mg PO DAILY tablet 02/26/19 Venlafaxine HCl ER [Effexor Xr 37.5 mg Cap.sr] 37.5 mg PO DAILY #15 cap.sr.24h 02/26/19 History of Present Illiness History of Present Illness: FABIANA HEAD is a 48 year old female with a history of alcoholism and alcohol withdrawal seizures. She has a history of atrial fibrillation without anticoagulation. She presented with increased shortness of breath, diaphoresis and was tremulous. She was in acute alcohol withdrawal. She is referred to the hospital service for admission. Hospital Course Hospital Course: The patient had sustained a fall prior to admission. She was noted to have a left rib fracture that is healing. During her hospitalization she exhibited atrial fibrillation with rapid ventricular response. On IV diltiazem her rate was controlled. She is significantly improved. Blood pressure is stable on the current regimen. It took several days but we were able to slowly wean the benzodiazepines. She was also placed on venlafaxine for depression and we will defer to her primary care provider to adjust the dose. She does have an appointment with her primary care provider next week. The patient did develop an episode of cystitis and will be discharged on antibiotics for the completion of treatment for the E. coli. Physical Exam Vital Signs: Temp Pulse Resp BP Pulse Ox 97.6 F 72 18 141/90 H 95 02/26/19 07:50 02/26/19 07:50 02/26/19 07:50 02/26/19 07:50 02/26/19 07:50 Intake & Output 02/25/19 02/26/19 02/27/19 06:59 06:59 06:59 Intake Total 3180 1660 Output Total 100 Balance 3080 1660 Weight 100.5 kg 99.6 kg Respiratory exam: PRESENT: clear to auscultation thomas, symmetrical, unlabored. ABSENT: rales, rhonchi, tachypnea, wheezes Cardiovascular exam: PRESENT: RRR - Rhythm appears to be regular by auscultation, +S1, +S2, other - Soft heart sounds GI/Abdominal exam: PRESENT: normal bowel sounds, soft. ABSENT: tenderness Results Laboratory Results: WBC 9.5 10^3/uL (4.0-10.5) 02/25/19 04:20 RBC 3.49 10^6/uL (3.72-5.28) L 02/25/19 04:20 Hgb 11.7 g/dL (12.0-15.5) L 02/25/19 04:20 Hct 33.8 % (36.0-47.0) L 02/25/19 04:20 MCV 97 fl (80-97) 02/25/19 04:20 MCH 33.4 pg (27.0-33.4) 02/25/19 04:20 MCHC 34.5 g/dL (32.0-36.0) 02/25/19 04:20 RDW 13.9 % (11.5-14.0) 02/25/19 04:20 Plt Count 174 10^3/uL (150-450) 02/25/19 04:20 Lymph % (Auto) 41.3 % (13-45) 02/21/19 15:49 [place] % (Auto) 9.1 % (3-13) 02/21/19 15:49 Eos % (Auto) 2.4 % (0-6) 02/21/19 15:49 Baso % (Auto) 2.3 % (0-2) H 02/21/19 15:49 Absolute Neuts (auto) 2.4 10^3/uL (1.7-8.2) 02/21/19 15:49 Absolute Lymphs (auto) 2.2 10^3/uL (0.5-4.7) 02/21/19 15:49 Absolute Monos (auto) 0.5 10^3/uL (0.1-1.4) 02/21/19 15:49 Absolute Eos (auto) 0.1 10^3/uL (0.0-0.6) 02/21/19 15:49 Absolute Basos (auto) 0.1 10^3/uL (0.0-0.2) 02/21/19 15:49 Seg Neutrophils % 44.9 % (42-78) 02/21/19 15:49 PT 13.3 SEC (11.4-15.4) 02/21/19 15:49 INR 1.01 02/21/19 15:49 Carbonic Acid 1.10 mmol/L (1.05-1.35) 02/21/19 23:43 HCO3/H2CO3 Ratio 19:1 02/21/19 23:43 ABG pH 7.38 (7.35-7.45) 02/21/19 23:43 ABG pCO2 36.5 mmHg (35-45) 02/21/19 23:43 ABG pO2 64.6 mmHg (80-100) L 02/21/19 23:43 ABG HCO3 21.1 mmol/L (20-24) 02/21/19 23:43 ABG Total CO2 22.2 mmol/L (21-25) 02/21/19 23:43 ABG O2 Saturation 92.4 % (94-98) L 02/21/19 23:43 ABG Base Excess -3.5 mmol/L 02/21/19 23:43 FiO2 ROOM AIR 02/21/19 23:43 Sodium 136.8 mmol/L (137-145) L 02/25/19 04:20 Potassium 3.8 mmol/L (3.6-5.0) 02/25/19 04:20 Chloride 102 mmol/L (98-107) 02/25/19 04:20 Carbon Dioxide 23 mmol/L (22-30) 02/25/19 04:20 Anion Gap 12 (5-19) 02/25/19 04:20 BUN 21 mg/dL (7-20) H 02/25/19 04:20 Creatinine 1.17 mg/dL (0.52-1.25) 02/25/19 04:20 Est GFR ( Amer) 59 (>60) L 02/25/19 04:20 Est GFR (MDRD) Non-Af 49 (>60) L 02/25/19 04:20 Glucose 93 mg/dL (75-110) 02/25/19 04:20 Calcium 9.0 mg/dL (8.4-10.2) 02/25/19 04:20 Phosphorus 3.4 mg/dL (2.5-4.5) 02/21/19 15:49 Magnesium 1.3 mg/dL (1.6-2.3) L 02/25/19 04:20 Total Bilirubin 0.4 mg/dL (0.2-1.3) 02/21/19 15:49 Direct Bilirubin 0.2 mg/dL (0.0-0.4) 02/21/19 15:49 Neonat Total Bilirubin Not Reportable 02/21/19 15:49 Neonat Direct Bilirubin Not Reportable 02/21/19 15:49 Neonat Indirect Bili Not Reportable 02/21/19 15:49 AST 49 U/L (14-36) H 02/21/19 15:49 ALT 24 U/L (<35) 02/21/19 15:49 Alkaline Phosphatase 104 U/L (38-126) 02/21/19 15:49 Creatine Kinase 171 U/L (30-135) H 02/21/19 15:49 Total Protein 8.3 g/dL (6.3-8.2) H 02/21/19 15:49 Albumin 4.3 g/dL (3.5-5.0) 02/21/19 15:49 TSH 2.60 uIU/mL (0.47-4.68) 02/21/19 15:49 Free T4 0.94 ng/dL (0.78-2.19) 02/21/19 15:49 Free T3 pg/mL 3.06 pg/mL (2.77-5.27) 02/21/19 15:49 Urine Color YELLOW 02/21/19 15:49 Urine Appearance CLEAR 02/21/19 15:49 Urine pH 8.0 (5.0-9.0) 02/21/19 15:49 Ur Specific [place] 1.012 02/21/19 15:49 Urine Protein >=500 mg/dL (NEGATIVE) H 02/21/19 15:49 Urine Glucose (UA) NEGATIVE mg/dL (NEGATIVE) 02/21/19 15:49 Urine Ketones NEGATIVE mg/dL (NEGATIVE) 02/21/19 15:49 Urine Blood NEGATIVE (NEGATIVE) 02/21/19 15:49 Urine Nitrite POSITIVE (NEGATIVE) H 02/21/19 15:49 Urine Bilirubin NEGATIVE (NEGATIVE) 02/21/19 15:49 Urine Urobilinogen NEGATIVE mg/dL (<2.0) 02/21/19 15:49 Ur Leukocyte Esterase TRACE (NEGATIVE) H 02/21/19 15:49 Urine WBC (Auto) 12 /HPF 02/21/19 15:49 Urine RBC (Auto) 2 /HPF 02/21/19 15:49 Urine Bacteria (Auto) 2+ /HPF 02/21/19 15:49 Squamous Epi Cells Auto 3 /HPF 02/21/19 15:49 Urine Mucus (Auto) RARE /LPF 02/21/19 15:49 Urine Ascorbic Acid NEGATIVE (NEGATIVE) 02/21/19 15:49 Serum Alcohol 292 mg/dL (NONE DETECTED) 02/21/19 15:49 Impressions: Ribs w/Chest X-Ray 02/21/19 15:51 IMPRESSION: Minimally displaced left lateral 11th rib fracture. No pneumothorax. Head CT 02/21/19 17:27 IMPRESSION: No acute intracranial pathology. Small vessel white matter disease. EVIDENCE OF ACUTE STROKE: NO. Cervical Spine CT 02/21/19 17:30 IMPRESSION: No fracture or static subluxation of the cervical spine. Plan Health Concerns: Resumption of alcohol in light of multiple comorbidities. Compliance with health care and medication regimen. Plan of Treatment: Discharge and new medication regimen as noted above. Follow-up with Dr. Savage. I did review the medications with the patient at bedside and verified them on the discharge plan. Goals: Alcohol cessation. Medical compliance with maintenance of atrial fibrillation. Treatment for depression. Time Spent: Greater than 30 Minutes Stroke Is this a Stroke Patient?: No Acute Heart Failure - Is this a Heart Failure Patient?: No
[2019-02-26] MEDS: HYDROCHLOROTHIAZIDE 25 MG TABLET PO SCH (09:59)
[2019-02-26] MEDS: DILTIAZEM HCL 240 MG CAPSULE.CR PO SCH (09:59)
[2019-02-26] MEDS: THIAMINE HCL 100 MG TABLET PO SCH (09:59)
[2019-02-26] MEDS: MAGNESIUM OXIDE 400 MG TABLET PO SCH (09:59)
[2019-02-26] MEDS: SULFAMETHOXAZOLE/TRIMETHOPRIM 800-160 MG TABLET PO SCH (09:59)
[2019-02-26] MEDS: VENLAFAXINE HCL 37.5 MG CAP.SR.24H PO SCH (09:59)
[2019-02-26] MEDS ORDERED: METOPROLOL SUCCINATE 25 MG TAB.SR.24H PO SCH (10:00)
[2019-02-26 10:08] VITALS: BP 149/83
== END 2019-02-26 11:39 | disposition home or self-care (01) | DRG 897 ==
LOC: ER 15:33 → EH 02-22 01:39 → OBSVTOIN 02-22 01:39 → EH 02-22 03:37 → 3N 02-22 14:42
PROVIDERS: ADMIT Internal Medicine; ATTEND Internal Medicine
DX: F10.239 Alcohol dependence with withdrawal, unspecified (principal); J44.1 Chronic obstructive pulmonary disease with (acute) exacerbation; S22.32XA Fracture of one rib, left side, initial encounter for closed fracture; Z68.41 Body mass index [BMI] 40.0-44.9, adult; N30.01 Acute cystitis with hematuria; N17.9 Acute kidney failure, unspecified; I48.0 Paroxysmal atrial fibrillation; F10.229 Alcohol dependence with intoxication, unspecified; Y90.8 Blood alcohol level of 240 mg/100 ml or more; F17.200 Nicotine dependence, unspecified, uncomplicated; I25.2 Old myocardial infarction; E03.9 Hypothyroidism, unspecified; K21.9 Gastro-esophageal reflux disease without esophagitis; F31.9 Bipolar disorder, unspecified; Z90.49 Acquired absence of other specified parts of digestive tract; W19.XXXA Unspecified fall, initial encounter; E66.01 Morbid (severe) obesity due to excess calories; Z79.51 Long term (current) use of inhaled steroids; Z79.899 Other long term (current) drug therapy; E78.5 Hyperlipidemia, unspecified; I10 Essential (primary) hypertension; B96.20 Unspecified Escherichia coli [E. coli] as the cause of diseases classified elsewhere
CPT/HCPCS: 36415; 70450; 72125; 80048; 80053; 80307; 81001; 82550; 82803; 83735; 84100; 84439; 84443; 84481; 85025; 85027; 85610; 87086; 87088; 87186; 93005; 93010; 94640; 94660; 94668; 94799; 96361; 96365; 96366; 96367; 96375; 99291; J0360; J0456; J1160; J1644; J2060; J2270; J2405; J3411; J3475; J3490; J7030; J7050; J7060; J7620

== ENCOUNTER 2019-03-01 05:46 | Inpatient (IN) | payer MEDICARE, MEDICAID ==
[2019-03-01] MEDS ORDERED: METHYLPREDNISOLONE INJ 125 MG/2 ML SDV IV ONE (06:32)
[2019-03-01] MEDS ORDERED: IPRATROPIUM/ALBUTEROL 0.5-2.5 MG/3 ML AMPUL NEB ONE (06:32)
[2019-03-01] MEDS ORDERED: NORMAL SALINE 1000 ML 1,000 ML IV ONE ×3 (06:35→09:12)
--- NOTE | 2019-03-01 06:39 | ER Document Report ---
ED Respiratory Problem - General Chief Complaint: Shortness Of Breath Stated Complaint: SHORTNESS OF BREATH Time Seen by Provider: 03/01/19 06:21 Primary Care Provider: BERNIE SAVAGE MD [Primary Care Provider] - Follow up as needed Mode of Arrival: Medic Information source: Patient Notes: 48-year-old female presents to ED for complaint of severe shortness of breath. She states she was talking on the phone tonight when she also has severe shortness of breath and was not able to breathe. She states she called 911 to come to the emergency room. She states she bought a new bottle of vodka yesterday and she drank at least half yesterday over 5 to 6 hours. She states she was just discharged from having severe shortness of breath yesterday but when I look at her paperwork she was discharged on the which was 3 days ago. TRAVEL OUTSIDE OF THE [place] IN LAST 30 DAYS: No - HPI Patient complains to provider of: COPD, Cough, Short of breath Onset: Yesterday Duration: Continuous Quality of pain: Sharp - Left lateral ribs Severity: Moderate Pain Level: 3 Chest pain/discomfort: Left - Lateral, Pain Cough: Nonproductive Sputum amount: None Associated symptoms: Congestion, Cough, Short of breath Similar symptoms previously: Yes Recently seen / treated by doctor: Yes - Related Data Allergies/Adverse Reactions: No Known Allergies Allergy (Verified 09/18/18 14:15) Past Medical History - General Information source: Patient - Social History Smoking Status: Never Smoker Frequency of alcohol use: Heavy - One half of 1/5 of vodka yesterday Drug Abuse: None Lives with: Alone Family History: Malignancy Patient has suicidal ideation: No Patient has homicidal ideation: No - Past Medical History Cardiac Medical History: Reports: 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, Hx Hypercholesterolemia, Hx Hypertension Pulmonary Medical History: Reports: Hx Asthma, Hx COPD EENT Medical History: Reports: None Neurological Medical History: Reports: Hx Seizures - With alcohol withdrawal Endocrine Medical History: Reports: Hx Hypothyroidism Renal/ Medical History: Reports: None Malignancy Medical History: Reports: None GI Medical History: Reports: Hx Gastroesophageal Reflux Disease Musculoskeletal Medical History: Reports Hx Musculoskeletal Deformity, Reports Hx Musculoskeletal Trauma Skin Medical History: Reports None Psychiatric Medical History: Reports: Hx Bipolar Disorder, Hx Depression Traumatic Medical History: Reports: Hx Fractures - R. leg. Pt. has a steel debi. Infectious Medical History: Reports: None Past Surgical History: Reports: Hx Appendectomy, Hx Cholecystectomy, Hx Orthopedic Surgery - right knee, Hx Tonsillectomy, Hx Tubal Ligation - Immunizations Hx Diphtheria, Pertussis, Tetanus Vaccination: No Hx Pneumococcal Vaccination: 05/05/11 Review of Systems - Review of Systems EENT: Nose discharge, Sinus discharge Cardiovascular: Chest pain, Dizziness, Lightheaded, Other - Hypotensive Respiratory: Cough, Short of breath, Wheezing Gastrointestinal: No symptoms reported Genitourinary: No symptoms reported Female Genitourinary: No symptoms reported Musculoskeletal: No symptoms reported Skin: No symptoms reported Hematologic/Lymphatic: No symptoms reported Neurological/Psychological: No symptoms reported -: Yes All other systems reviewed and negative Physical Exam - Vital signs Vitals: Temp Pulse Resp BP Pulse Ox 97.5 F 60 23 H 90/52 L 88 L 03/01/19 05:47 03/01/19 05:47 03/01/19 05:47 03/01/19 05:47 03/01/19 05:47 Interpretation: Normal, Hypotensive, Hypoxic, Tachypneic - General General appearance: Appears well, Alert - HEENT Head: Normocephalic, Atraumatic Eyes: Normal Pupils: PERRL Ears: Normal External canal: Normal Tympanic membrane: Normal Sinus: Normal Nasal: Purulent discharge, Swelling Mouth/Lips: Normal Pharynx: Normal Neck: Normal - Respiratory Respiratory status: No respiratory distress Chest status: Nontender Breath sounds: Nonproductive cough Chest palpation: Normal - Cardiovascular Rhythm: Regular Heart sounds: Normal auscultation Murmur: No - Abdominal Inspection: Normal Distension: No distension Bowel sounds: Normal Tenderness: Nontender Organomegaly: No organomegaly - Back Back: Normal, Nontender - Extremities General upper extremity: Normal inspection, Nontender, Normal color, Normal ROM, Normal temperature General lower extremity: Normal inspection, Nontender, Normal color, Normal ROM, Normal temperature, Normal weight bearing. No: Evangelist's sign - Neurological Neuro grossly intact: Yes Cognition: Normal Orientation: AAOx4 [place] Coma Scale Eye Opening: Spontaneous [place] Coma Scale Verbal: Oriented Roland Coma Scale Motor: Obeys Commands [place] Coma Scale Total: 15 Speech: Normal Motor strength normal: LUE, RUE, LLE, RLE Sensory: Normal - Psychological Associated symptoms: Normal affect, Normal mood - Skin Skin Temperature: Warm Skin Moisture: Dry Skin Color: Normal Course - Vital Signs Vital signs: Temp Pulse Resp BP Pulse Ox 97.5 F 60 23 H 90/52 L 88 L 03/01/19 05:47 03/01/19 05:47 03/01/19 05:47 03/01/19 05:47 03/01/19 05:47 Discharge - Discharge Referrals: BERNIE SAVAGE MD [Primary Care Provider] - Follow up as needed
[2019-03-01 07:01] LABS: ABSOLUTE BASOPHILS # (AUTO) 0.1 10^3/uL (0.0-0.2); ABSOLUTE EOSINOPHILS # (AUTO) 0.2 10^3/uL (0.0-0.6); ABSOLUTE LYMPHOCYTES (AUTO) 3.3 10^3/uL (0.5-4.7); ABSOLUTE MONOCYTES (AUTO) 1.3 10^3/uL (0.1-1.4); ABSOLUTE NEUT (AUTO) 3.3 10^3/uL (1.7-8.2); BASOPHILS % (AUTO) 1.4 % (0-2); EOSINOPHILS % (AUTO) 2.1 % (0-6); HEMATOCRIT 28.5 % (36.0-47.0); HEMOGLOBIN 9.8 g/dL (12.0-15.5); LYMPHOCYTES % (AUTO) 40.5 % (13-45); MEAN CORPUSCULAR HEMOGLOBIN 33.2 pg (27.0-33.4); MEAN CORPUSCULAR HGB CONC 34.2 g/dL (32.0-36.0); MEAN CORPUSCULAR VOLUME 97 fl (80-97); MONOCYTES % (AUTO) 15.5 % (3-13); PLATELET COUNT 278 10^3/uL (150-450); RED BLOOD COUNT 2.94 10^6/uL (3.72-5.28); RED CELL DISTRIBUTION WIDTH 13.9 % (11.5-14.0); SEGMENTED NEUTROPHILS % (AUTO) 40.5 % (42-78); TOTAL CELLS COUNTED % (AUTO) 100 %; WHITE BLOOD COUNT 8.2 10^3/uL (4.0-10.5)
[2019-03-01 07:08] LABS: INTERNATIONAL RATION (INR) 1.15; PROTHROMBIN TIME 14.8 SEC (11.4-15.4)
--- NOTE | 2019-03-01 07:16 | ER Document Report ---
ED Medical Screen (RME) - General Chief Complaint: Shortness Of Breath Stated Complaint: SHORTNESS OF BREATH Time Seen by Provider: 03/01/19 06:21 Primary Care Provider: BERNIE SAVAGE MD [Primary Care Provider] - Follow up as needed Mode of Arrival: Medic Notes: 48-year-old female presents to ED for complaint of severe shortness of breath. She states she was talking on the phone tonight when she also has severe shortness of breath and was not able to breathe. She states she called 911 to come to the emergency room. She states she bought a new bottle of vodka yesterday and she drank at least half yesterday over 5 to 6 hours. She states she was just discharged from having severe shortness of breath yesterday but when I look at her paperwork she was discharged on the which was 3 days ago. When I assessed the patient her O2 sat was 88 and a went up to 95 on 2 L. Her blood pressure was 90/52 and I did order her a liter of fluids she will had one run in from EMS. Her pulse was 60. She states that the EMS told her that her blood pressure was extremely low when they examined her. EMS documented blood pressures of 88/50, 81/62, and 70/34, and 91/55 I have greeted and performed a rapid initial assessment of this patient. A comprehensive ED assessment and evaluation of the patient, analysis of test results and completion of medical decision making process will be conducted by an additional ED providers. TRAVEL OUTSIDE OF THE [place] IN LAST 30 DAYS: No - HPI Onset: Yesterday Onset/Duration: Worse Quality of pain: Sharp Severity: Moderate Pain Level: 3 Associated Symptoms: Chest pain - Left lateral chest, Shortness of breath, Other - Wheezing Exacerbated by: Movement Relieved by: Denies Similar symptoms previously: Yes Recently seen / treated by doctor: Yes - Related Data Allergies/Adverse Reactions: No Known Allergies Allergy (Verified 09/18/18 14:15) Past Medical History - General Information source: Patient - Social History Frequency of alcohol use: Heavy - One half of 1/5 of vodka yesterday Drug Abuse: None Family history: Reviewed & Not Pertinent - Past Medical History Cardiac Medical History: Reports: 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, Hx Hypercholesterolemia, Hx Hypertension Pulmonary Medical History: Reports: Hx Asthma, Hx COPD EENT Medical History: Reports: None Neurological Medical History: Reports: Hx Seizures - With alcohol withdrawal Endocrine Medical History: Reports: Hx Hypothyroidism Renal/ Medical History: Reports: None Malignancy Medical History: Reports: None GI Medical History: Reports: Hx Gastroesophageal Reflux Disease Musculoskeltal Medical History: Reports Hx Musculoskeletal Deformity, Reports Hx Musculoskeletal Trauma Skin Medical History: Reports None Psychiatric Medical History: Reports: Hx Bipolar Disorder, Hx Depression Traumatic Medical History: Reports: Hx Fractures - R. leg. Pt. has a steel debi. Infectious Medical History: Reports: None Past Surgical History: Reports: Hx Appendectomy, Hx Cholecystectomy, Hx Orthopedic Surgery - right knee, Hx Tonsillectomy, Hx Tubal Ligation - Immunizations Hx Diphtheria, Pertussis, Tetanus Vaccination: No Physical Exam - Vital signs Vitals: Temp Pulse Resp BP Pulse Ox 97.5 F 60 23 H 90/52 L 88 L 03/01/19 05:47 03/01/19 05:47 03/01/19 05:47 03/01/19 05:47 03/01/19 05:47 Course - Vital Signs Vital signs: Temp Pulse Resp BP Pulse Ox 97.5 F 60 23 H 90/52 L 88 L 03/01/19 05:47 03/01/19 05:47 03/01/19 05:47 03/01/19 05:47 03/01/19 05:47 - Laboratory Result Diagrams: 03/01/19 06:45 03/01/19 06:45 Doctor's Discharge - Discharge Referrals: BERNIE SAVAGE MD [Primary Care Provider] - Follow up as needed
[2019-03-01 07:26] LABS: ACETAMINOPHEN < 10 ug/mL (10-30); ALBUMIN 3.5 g/dL (3.5-5.0); ALCOHOL 266 mg/dL (NONE DETECTED); ALKALINE PHOSPHATASE 86 U/L (38-126); ANION GAP 17 (5-19); ASPARTATE AMINO TRANSFERASE 31 U/L (14-36); BILIRUBIN,DIRECT 0.2 mg/dL (0.0-0.4); BILIRUBIN,TOTAL 0.2 mg/dL (0.2-1.3); BLOOD UREA NITROGEN 36 mg/dL (7-20); CALCIUM 8.3 mg/dL (8.4-10.2); CARBON DIOXIDE 18 mmol/L (22-30); CHLORIDE 105 mmol/L (98-107); GLUCOSE 94 mg/dL (75-110); TOTAL PROTEIN 6.8 g/dL (6.3-8.2)
[2019-03-01 08:07] LABS: VENOUS BLOOD BASE EXCESS -5.9 mmol/L; VENOUS BLOOD HCO3 21.3 mmol/L (20-32); VENOUS BLOOD PCO2 49.3 mmHg (35-63); VENOUS BLOOD PH 7.25 (7.30-7.42)
[2019-03-01 08:13] LABS: APPEARANCE,URINE SLIGHTLY-CLOUDY; BILIRUBIN,URINE NEGATIVE (NEGATIVE); COLOR,URINE YELLOW; GLUCOSE, URINE NEGATIVE (NEGATIVE); KETONES,URINE NEGATIVE (NEGATIVE); PROTEIN,URINE 30 mg/dL (NEGATIVE); URINE SPECIFIC GRAVITY 1.018; UROBILINOGEN,URINE NEGATIVE mg/dL (<2.0)
--- NOTE | 2019-03-01 08:20 | RADIOLOGY REPORT (SQ) ---
EXAM DESCRIPTION: CHEST SINGLE VIEW COMPLETED DATE/TIME: 03/01/2019 8:04 am REASON FOR STUDY: Dyspnea, hypotension COMPARISON: 01/15/2019 EXAM PARAMETERS: NUMBER OF VIEWS: One view. TECHNIQUE: Single frontal radiographic view of the chest acquired. RADIATION DOSE: NA LIMITATIONS: None. FINDINGS: LUNGS AND PLEURA: There is subtle heterogeneous opacity of the left lung base. MEDIASTINUM AND HILAR STRUCTURES: No masses. Contour normal. HEART AND VASCULAR STRUCTURES: Cardiomegaly. BONES: No acute findings. HARDWARE: None in the chest. OTHER: No other significant finding. IMPRESSION: Subtle heterogeneous opacity of the left lung base, concerning for infection or aspirati on. Cardiomegaly. TECHNICAL DOCUMENTATION: JOB ID: [id number] [employer]- All Rights Reserved Reading location - IP/workstation name: [email or web address]
[2019-03-01] MEDS ORDERED: CEFEPIME 2 GM/D5W RTU 2 GM/50 ML RTUPB IV ONE (08:30)
[2019-03-01 08:35] LABS: URINE AMPHETAMINES SCREEN NEGATIVE; URINE BARBITURATES SCREEN NEGATIVE; URINE COCAINE SCREEN NEGATIVE; URINE MARIJUANA (THC) SCREEN NEGATIVE; URINE METHADONE SCREEN NEGATIVE; URINE PHENCYCLIDINE SCREEN NEGATIVE
[2019-03-01] MEDS ORDERED: NORMAL SALINE 500 ML IV ONE (08:37)
[2019-03-01 08:59] LABS: URINE BENZODIAZEPINES SCREEN UNCONFIRMED POSITIVE
--- NOTE | 2019-03-01 09:03 | ER Document Report ---
ED General - General Chief Complaint: Shortness Of Breath Stated Complaint: SHORTNESS OF BREATH Time Seen by Provider: 03/01/19 06:21 Primary Care Provider: BERNIE SAVAGE MD [Primary Care Provider] - Follow up as needed Mode of Arrival: Medic TRAVEL OUTSIDE OF THE [place] IN LAST 30 DAYS: No - HPI Notes: Patient is a 48-year-old female, alcohol dependence, just recently discharged in the hospital, who presents to the emergency department for evaluation of shortness of breath. She states that started last night at about 11 PM. She has been coughing. No fevers to her knowledge. She has had some nausea but no emesis. She admits to drinking heavily since being discharged from the hospital. She cannot give me any details, but has been drinking hard liquor. She states has been taking her medications as prescribed. The patient was recently admitted to the hospital, diagnosed with new onset atrial fibrillation. She also states she was found to have a left-sided rib fracture. She has pain in that area that she describes as sharp and stabbing. Worsened with breathing, but she states the alcohol did make it feel better. 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 Denies: Hx Migraine, Hx Parkinson's Disease Endocrine Medical History: Reports: Hx Hypothyroidism. Denies: Hx Diabetes Mellitus Type 1, Hx Diabetes Mellitus Type 2, Hx Hyperthyroidism Renal/ Medical History: Reports: None. Denies: Hx End Stage Renal Disease, Hx Peritoneal Dialysis Malignancy Medical History: Reports: None GI Medical History: Reports: Hx Gastroesophageal Reflux Disease. Denies: Hx Cirrhosis, Hx Crohn's Disease, Hx Hepatitis, Hx Hiatal Hernia, Hx Pancreatitis, Hx Ulcer, Hx Ulcerative Colitis Musculoskeletal Medical History: Denies Hx Arthritis, Denies Hx Fibromyalgia, Reports Hx Musculoskeletal Deformity, Reports Hx Musculoskeletal Trauma Skin Medical History: Reports None, Denies Hx Eczema, Denies Hx Psoriasis Psychiatric Medical History: Reports: Hx Bipolar Disorder, Hx Depression Denies: Hx Schizophrenia Traumatic Medical History: Reports: Hx Fractures - R. leg. Pt. has a steel debi. Infectious Medical History: Reports: None. Denies: Hx Hepatitis Past Surgical History: Reports: Hx Appendectomy, Hx Cholecystectomy, Hx Orthopedic Surgery - right knee, Hx Tonsillectomy, Hx Tubal Ligation. Denies: Hx Bowel Surgery, Hx Section, Hx Hysterectomy, Hx Mastectomy - Immunizations Hx Diphtheria, Pertussis, Tetanus Vaccination: No Hx Pneumococcal Vaccination: 05/05/11 Review of Systems - Review of Systems Constitutional: No symptoms reported EENT: No symptoms reported Cardiovascular: See HPI Respiratory: See HPI Gastrointestinal: See HPI Genitourinary: No symptoms reported Musculoskeletal: No symptoms reported Skin: No symptoms reported Neurological/Psychological: No symptoms reported Physical Exam - Vital signs Vitals: Temp Pulse Resp BP Pulse Ox 97.5 F 60 23 H 90/52 L 88 L 03/01/19 05:47 03/01/19 05:47 03/01/19 05:47 03/01/19 05:47 03/01/19 05:47 - Notes Notes: This is an obese 48-year-old female, who smells strongly of alcohol, is disheveled, and looks much older than her stated age. She is no acute distress. Vital signs reviewed, please refer to chart. Head is normocephalic, atraumatic. Pupils equal round, reactive to light. Neck is supple without meningismus. Heart is regular rate and rhythm. Lungs reveal mild expiratory wheezes and diminished breath sounds in the left base. She is markedly tender to palpation over the left anterior inferior ribs, but normal chest wall excursion, no subcutaneous emphysema is noted. Abdomen is soft, nontender, normoactive bowel sounds throughout. Extremities without cyanosis, clubbing. Posterior calves are nontender. Peripheral pulses are equal. Skin is warm and dry. Patient is awake, alert, neurological exam is nonfocal. Course - Re-evaluation Re-evalutation: 03/01/19 09:02 Patient presents to the emergency department for evaluation. On arrival she was found to be hypoxic and borderline hypotensive. She had laboratory investigations and imaging as initially ordered through the nurse practitioner, then I went and evaluated the patient and added further orders. I was very c oncerned about the possibility of sepsis in this patient who was hypotensive. Laboratory investigations were obtained. She does have a significant leukocytosis, but she does have new onset renal failure with a creatinine of 5.91. She has a left lower lobe pneumonia on chest x-ray. Originally she was given fluid boluses and her pressure responded. Unfortunately, however she only had 75 cc of urine out despite 3 L of fluid resuscitation. A further bolus was ordered. The patient's blood pressure did once again become borderline, with a blood pressure of 88/44. I had initially spoken to Dr. Fontenot in regards to admission of this patient. I am concerned, however, that she is not appropriate for IMC. Will consult electric meter repairer apprentice for admission. 03/01/19 09:[address] Rae, electric meter repairer apprentice. He will come and evaluate the patient for ICU admission. 03/01/19 09:[address] Gonzalez, client relationship executive. He will see the patient in consult. - Vital Signs Vital signs: Temp Pulse Resp BP Pulse Ox 97.5 F 60 19 93/52 L 95 03/01/19 05:47 03/01/19 05:47 03/01/19 07:50 03/01/19 07:50 03/01/19 07:50 - Laboratory Result Diagrams: 03/01/19 06:45 03/01/19 06:45 Laboratory results interpreted by me: 03/01/19 03/01/19 03/01/19 06:45 06:45 07:50 RBC 2.94 L Hgb 9.8 L Hct 28.5 L [place] % (Auto) 15.5 H Seg Neutrophils % 40.5 L VBG pH 7.25 L Carbon Dioxide 18 L BUN 36 H Creatinine 5.91 H Est GFR ( Amer) 9 L Est GFR (MDRD) Non-Af 8 L Calcium 8.3 L Lipase 558.3 H Urine Protein Acetaminophen < 10 L 03/01/19 07:50 RBC Hgb Hct [place] % (Auto) Seg Neutrophils % VBG pH Carbon Dioxide BUN Creatinine Est GFR ( Amer) Est GFR (MDRD) Non-Af Calcium Lipase Urine Protein 30 H Acetaminophen - Diagnostic Test Radiology reviewed: Image reviewed, Reports reviewed Radiology results interpreted by me: 03/01/19 09:03 Chest X-Ray 03/01/19 07:35 IMPRESSION: Subtle heterogeneous opacity of the left lung base, concerning for infection or aspiration. Cardiomegaly. - EKG Interpretation by Me Additional EKG results interpreted by me: 03/01/19 09:04 Sinus bradycardia rate of 50 bpm. Normal axis. First-degree AV block. Borderline QT interval prolongation. No acute ST changes concerning for ischemia or infarction. Critical Care Note - Critical Care Note Total time excluding time spent on procedures (mins): 45 Discharge - Discharge Clinical Impression: Hypoxia, Severe sepsis, Left lower lobe pneumonia, Acute renal failure Condition: Stable Disposition: ADMITTED INPATIENT Admitting Provider: Dr. Rae Unit Admitted: ICU Referrals: BERNIE SAVAGE MD [Primary Care Provider] - Follow up as needed
[2019-03-01] MEDS: NORMAL SALINE 1000 ML 1,000 ML IV PRN ×3 (10:16→21:01)
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
--- NOTE | 2019-03-01 12:52 | PDOC CONSULTATION ---
Consultation Consult Date: 03/01/19 Provider Consulted: Damari MENON Consult reason:: ALEJA History of Present Illness Admission Date/PCP: 03/01/19 09:15 BERNIE SAVAGE MD History of Present Illness: FABIANA HEAD is a 48 year old female With a past medical history significant for hypertension/COPD/atrial fibrillation/alcoholism was admitted with history of rather relatively subacute onset of shortness of breath last night. She says she went to bed after taking her inhalers as usual. She then woke up finding that she is getting progressively short of breath with orthopnea. No complaints of any chest pains, fever or chills. Admits to having a cough. She was then seen in the ER and diagnosed with apparent pneumonia of the left lower base of the lung along with ALEJA with a creatinine of 5.9 alongside alcohol intoxication. She is also found to be hypotensive and has begun on IV fluids pending cultures.Is also found to have a moderately high lipase but denies any abdominal pains nausea vomiting. She has had multiple admissions with the last 6 to 7 months with similar presentations. Her last admission number was will also with ALEJA with a creatinine of 3.7.At that time she also admitted being on NSAIDs. Currently she says she is not taking any NSAIDs or any Tylenol. However she admits to the fact she drinks 1/5 of vodka on a daily basis.She does not endorse a diagnosis of liver cirrhosis.Labs and medications were reviewed. 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 Denies: Coronary Artery Disease, Heart Murmur, Peripheral Vascular Disease, Pulmonary Embolism Pulmonary Medical History: Reports: Asthma, Chronic Obstructive Pulmonary Disease (COPD) Denies: Bronchitis, Pneumonia, Respiratory Failure, Sleep Apnea, Tuberculosis EENT Medical History: Reports: None Neurological Medical History: Reports: Seizures - With alcohol withdrawal Denies: Migraine Endocrine Medical History: Reports: Hypothyroidism Denies: Diabetes Mellitus Type 1, Diabetes Mellitus Type 2, Hyperthyroidism Renal/ Medical History: Reports: None Denies: End Stage Renal Disease Malignancy Medical History: Reports: None GI Medical History: Reports: Gastroesophageal Reflux Disease Denies: Cirrhosis, Crohn's Disease, Hepatitis, Hiatal Hernia, Ulcerative Colitis Musculoskeltal Medical History: Denies: Arthritis, Fibromyalgia, Rheumatoid Arthritis Skin Medical History: Reports: None Denies: Eczema, Psoriasis Psychiatric Medical History: Reports: Bipolar Disorder, Depression Infectious Medical History: Reports: None Past Surgical History Past Surgical History: Reports: Appendectomy, Cholecystectomy, Orthopedic Surgery - right knee, Tonsillectomy, Tubal Ligation Denies: Section, Hysterectomy, Mastectomy Social History Smoking Status: Never Smoker Frequency of Alcohol Use: Heavy Hx Recreational Drug Use: Yes Drugs: None Hx Prescription Drug Abuse: No Family History Parental Family History Reviewed: Yes - Denies any history of ESRD Children Family History Reviewed: No Sibling(s) Family History Reviewed.: No Medication/Allergy Home Medications: Albuterol Sulfate [Proair HFA Inhalation Aerosol 8.5 gm MDI] 2 puff IH Q4HP PRN 01/15/19 Alprazolam [Xanax 0.5 mg Tablet] 0.5 mg PO DAILYP PRN 01/15/19 Hydrochlorothiazide [Hydrodiuril 25 mg Tablet] 25 mg PO DAILY 01/15/19 Levothyroxine Sodium 88 mcg PO Q6AM 01/15/19 Lisinopril [Prinivil 10 mg Tablet] 10 mg PO DAILY 01/15/19 Magnesium Oxide [Mag-Ox 400 mg Tablet] 400 mg PO DAILY 01/15/19 Potassium Chloride [K-Tab ER] 20 meq PO BID 01/15/19 Fluticasone Propion/Salmeterol [Wixela 250-50 Inhub] 1 each IH Q12 02/22/19 Apixaban [Eliquis 5 mg Tablet] 5 mg PO BID #30 tablet 02/26/19 Atorvastatin Calcium [Lipitor 20 mg Tablet] 20 mg PO QHS #15 tablet 02/26/19 Diltiazem HCl [Cardizem Cd 240 mg Capsule.cr] 240 mg PO DAILY #15 capsule.cr 02/26/19 Metoprolol Succinate [Toprol Xl 25 mg Tab.sr] 25 mg PO DAILY #15 tab.sr.24h 02/26/19 Folic Acid 1 mg PO DAILY 03/01/19 Omeprazole 20 mg PO BID 03/01/19 Thiamine HCl [Vitamin B-1] 250 mg PO DAILY 03/01/19 Venlafaxine HCl ER [Effexor Xr 37.5 mg Cap.sr] 37.5 mg PO QHS 03/01/19 Allergies/Adverse Reactions: No Known Allergies Allergy (Verified 09/18/18 14:15) Review of Systems Constitutional: PRESENT: fatigue, weakness. ABSENT: anorexia, fever(s), headache(s), night sweats Nose, Mouth, and Throat: ABSENT: mouth pain, sore throat Cardiovascular: PRESENT: dyspnea on exertion. ABSENT: chest pain, edema Respiratory: PRESENT: cough, dyspnea. ABSENT: hemoptysis Gastrointestinal: ABSENT: bloating, coffee ground emesis, diarrhea, dysphagia, heartburn, hematemesis, hematochezia, nausea, vomiting Genitourinary: ABSENT: difficulty urinating, dysuria, hematuria Musculoskeletal: ABSENT: deformity, joint swelling Integumentary: ABSENT: lesions, pruritus Neurological: ABSENT: abnormal gait, abnormal movements, abnormal speech, focal weakness, frequent falls, lack of coordination Hematologic/Lymphatic: ABSENT: easy bleeding, easy bruising, lymphadenopathy Physical Exam Vital Signs: Temp Pulse Resp BP Pulse Ox 97.5 F 74 21 H 108/64 94 03/01/19 11:12 03/01/19 11:12 03/01/19 11:12 03/01/19 11:12 03/01/19 11:12 Intake & Output 02/28/19 03/01/19 03/02/19 06:59 06:59 06:59 Intake Total 3550 Balance 3550 Weight 103.5 kg 107.9 kg General appearance: PRESENT: no acute distress Eye exam: PRESENT: EOMI, PERRLA. ABSENT: scleral icterus Ear exam: PRESENT: normal external ear exam Mouth exam: PRESENT: neck supple Neck exam: ABSENT: lymphadenopathy, meningismus, tenderness, thyromegaly, tracheal deviation Respiratory exam: PRESENT: clear to auscultation thomas, decreased breath sounds, rhonchi - Scattered rhonchi especially in the left lower base.. ABSENT: crackles Cardiovascular exam: PRESENT: +S1, +S2 GI/Abdominal exam: PRESENT: normal bowel sounds, soft. ABSENT: organomegaly, tenderness Extremities exam: ABSENT: pedal edema Neurological exam: PRESENT: alert, awake, oriented to person, oriented to place, other - No asterixis Psychiatric exam: PRESENT: anxious Skin exam: ABSENT: cyanosis, erythema, mottled, rash Results Laboratory Results: 03/01/19 06:45 03/01/19 06:45 03/01/19 03/01/19 03/01/19 06:45 06:45 06:45 WBC 8.2 RBC 2.94 L Hgb 9.8 L Hct 28.5 L MCV 97 MCH 33.2 MCHC 34.2 RDW 13.9 Plt Count 278 Seg Neutrophils % 40.5 L VBG pH VBG pCO2 VBG HCO3 VBG Base Excess Sodium 139.5 Potassium 4.0 Chloride 105 Carbon Dioxide 18 L Anion Gap 17 BUN 36 H Creatinine 5.91 H Est GFR ( Amer) 9 L Glucose 94 Lactic Acid Calcium 8.3 L Total Bilirubin 0.2 AST 31 Alkaline Phosphatase 86 Total Protein 6.8 Albumin 3.5 Lipase 558.3 H Serum HCG, Qual NEGATIVE Urine Color Urine Appearance Urine pH Ur Specific [place] Urine Protein Urine Glucose (UA) Urine Ketones Urine Blood Urine RBC (Auto) 03/01/19 03/01/19 03/01/19 07:50 07:50 07:50 WBC RBC Hgb Hct MCV MCH MCHC RDW Plt Count Seg Neutrophils % VBG pH 7.25 L VBG pCO2 49.3 VBG HCO3 21.3 VBG Base Excess -5.9 Sodium Potassium Chloride Carbon Dioxide Anion Gap BUN Creatinine Est GFR ( Amer) Glucose Lactic Acid 1.3 Calcium Total Bilirubin AST Alkaline Phosphatase Total Protein Albumin Lipase Serum HCG, Qual Urine Color YELLOW Urine Appearance SLIGHTLY-CLOUDY Urine pH 5.0 Ur Specific [place] 1.018 Urine Protein 30 H Urine Glucose (UA) NEGATIVE Urine Ketones NEGATIVE Urine Blood NEGATIVE Urine RBC (Auto) 1 Impressions: Chest X-Ray 03/01/19 07:35 IMPRESSION: Subtle heterogeneous opacity of the left lung base, concerning for infection or aspiration. Cardiomegaly. Assessment & Plan - Diagnosis (1) Left lower lobe pneumonia Qualifiers: Pneumonia type: due to unspecified organism Qualified Code(s): J18.9 - Pneumonia, unspecified organism Is this a current diagnosis for this admission?: Yes Plan: Clinically. However she does not have any leukocytosis and no left shift. Currently on IV fluids and is being monitored for possible aspiration pneumonitis.Patient has been dosed with 1 dose of IV cefepime. (2) ALEJA (acute kidney injury) Plan: Clinically on the dry side. Patient currently hypotensive of uncertain origin. Differentials includes just poor fluid intake in the face of being on antihypertensives, septic shock, acute pancreatitis. Agree with fluid/volume resuscitation. No mario evidences to indicate acute pancreatitis clinically even though her lipase is moderately elevated. We have serially followed these numbers. Continue IV fluid resuscitation and will order a renal ultrasound if has not been done. (3) Alcohol abuse Is this a current diagnosis for this admission?: Yes Plan: Status quo. Monitor for alcohol withdrawal. (4) COPD (chronic obstructive pulmonary disease) Qualifiers: Emphysema type: centrilobular Plan: As per vice president compliance. Currently stable (5) Hypotension Plan: Differential includes just poor intake in the face of being on antihypertensives, possible septic shock but normal white count/lactic acid, acute pancreatitis but clinically asymptomatic. She on IV fluid resuscitation. Monitor closely. Been dosed with 1 dose of IV cefepime.
[2019-03-01] MEDS ORDERED: AZITHROMYCIN 250 MG TABLET PO ONE (14:15)
[2019-03-01] MEDS: HEPARIN SOD (PORCINE) 5,000 UNIT/ML 1 ML VIAL SUBCUT SCH ×2 (14:16→21:04)
--- NOTE | 2019-03-01 17:19 | EKG REPORT ---
SEVERITY:- ABNORMAL ECG - SINUS RHYTHM FIRST DEGREE AV BLOCK BORDERLINE PROLONGED QT INTERVAL : Confirmed by: Tamara Boyer MD 01-Mar-2019 17:19:09
--- NOTE | 2019-03-01 19:11 | RADIOLOGY REPORT (SQ) ---
EXAM DESCRIPTION: [employer] COMPLETED DATE/TIME: 03/01/2019 7:00 pm REASON FOR STUDY: ALEJA COMPARISON: 03/29/2017. TECHNIQUE: Dynamic and static grayscale images acquired of the kidneys and bladder and recorded on P ACS. Additional selected color Doppler and spectral images recorded. LIMITATIONS: None. FINDINGS: RIGHT KIDNEY: Normal size. Mild increased echogenicity. No solid or suspicious masses . No hydronephrosis. No calcifications. LEFT KIDNEY: Poorly visualized. Normal size. Mild increased echogenicity. No solid or suspiciou s masses. No hydronephrosis. No calcifications. BLADDER: Catheter in the bladder. OTHER FINDINGS: No other significant finding. IMPRESSION: NO HYDRONEPHROSIS OR ACUTE FINDINGS. TECHNICAL DOCUMENTATION: JOB ID: [id number] [employer] All Rights Reserved Reading location - IP/workstation name: [email or web address]
[2019-03-01 19:15] LABS: ANION GAP 16 (5-19); BLOOD UREA NITROGEN 30 mg/dL (7-20); CALCIUM 8.2 mg/dL (8.4-10.2); CARBON DIOXIDE 15 mmol/L (22-30); CHLORIDE 107 mmol/L (98-107); GLUCOSE 224 mg/dL (75-110); POTASSIUM 4.5 mmol/L (3.6-5.0)
[2019-03-01] MEDS: LORAZEPAM INJ 2 MG/1 ML VIAL IV PRN ×2 (19:58→22:20)
[2019-03-01] MEDS: CEFEPIME 1 GM/D5W RTU 1 GM/50 ML RTUPB IV SCH (21:05)
[2019-03-01] MEDS ORDERED: CEFEPIME 2 GM/D5W RTU 2 GM/50 ML RTUPB IV SCH (22:00)
[2019-03-02] MEDS: LORAZEPAM INJ 2 MG/1 ML VIAL IV PRN ×9 (01:12→21:57)
[2019-03-02] MEDS: NORMAL SALINE 1000 ML 1,000 ML IV PRN ×3 (01:15→13:20)
[2019-03-02 05:13] LABS: ABSOLUTE LYMPHOCYTES (AUTO) 0.7 10^3/uL (0.5-4.7); ABSOLUTE MONOCYTES (AUTO) 0.6 10^3/uL (0.1-1.4); ABSOLUTE NEUT (AUTO) 8.2 10^3/uL (1.7-8.2); BASOPHILS % (AUTO) 0.2 % (0-2); HEMATOCRIT 30.3 % (36.0-47.0); HEMOGLOBIN 10.6 g/dL (12.0-15.5); LYMPHOCYTES % (AUTO) 7.1 % (13-45); MEAN CORPUSCULAR HEMOGLOBIN 33.5 pg (27.0-33.4); MEAN CORPUSCULAR VOLUME 96 fl (80-97); MONOCYTES % (AUTO) 6.2 % (3-13); PLATELET COUNT 261 10^3/uL (150-450); RED BLOOD COUNT 3.16 10^6/uL (3.72-5.28); RED CELL DISTRIBUTION WIDTH 13.5 % (11.5-14.0); SEGMENTED NEUTROPHILS % (AUTO) 86.5 % (42-78); TOTAL CELLS COUNTED % (AUTO) 100 %; WHITE BLOOD COUNT 9.5 10^3/uL (4.0-10.5)
[2019-03-02] MEDS ORDERED: METOPROLOL TARTRATE PF/INJ 5 MG/5 ML SDV IV ONE (05:30)
[2019-03-02 05:35] LABS: ALBUMIN 3.5 g/dL (3.5-5.0); ALKALINE PHOSPHATASE 93 U/L (38-126); ANION GAP 10 (5-19); ASPARTATE AMINO TRANSFERASE 30 U/L (14-36); BILIRUBIN,DIRECT 0.3 mg/dL (0.0-0.4); BILIRUBIN,TOTAL 0.4 mg/dL (0.2-1.3); BLOOD UREA NITROGEN 28 mg/dL (7-20); CARBON DIOXIDE 20 mmol/L (22-30); CHLORIDE 109 mmol/L (98-107); GLUCOSE 150 mg/dL (75-110); PHOSPHORUS 3.4 mg/dL (2.5-4.5); POTASSIUM 4.7 mmol/L (3.6-5.0); TOTAL PROTEIN 7.3 g/dL (6.3-8.2)
[2019-03-02] MEDS: HEPARIN SOD (PORCINE) 5,000 UNIT/ML 1 ML VIAL SUBCUT SCH ×3 (06:27→21:43)
[2019-03-02] MEDS ORDERED: LABETALOL HCL INJ 20 MG/4 ML DISP.SYRIN IV ONE ×3 (07:04→22:00)
[2019-03-02] MEDS ORDERED: LORAZEPAM INJ 2 MG/1 ML VIAL IV ONE (07:17)
[2019-03-02] MEDS ORDERED: LORAZEPAM INJ 2 MG/1 ML VIAL ONE (07:17)
[2019-03-02] MEDS ORDERED: HYDRALAZINE HCL INJ/PF 20 MG/1 ML SDV IV ONE (08:08)
[2019-03-02] MEDS ORDERED: HYDRALAZINE HCL INJ/PF 20 MG/1 ML SDV ONE ×2 (08:08→21:02)
[2019-03-02] MEDS ORDERED: LEVALBUTEROL HCL NEB 0.63 MG/3 ML AMPUL NEB ONE (08:30)
[2019-03-02] MEDS: HYDRALAZINE HCL INJ/PF 20 MG/1 ML SDV IV PRN (09:00)
[2019-03-02] MEDS: CEFEPIME 1 GM/D5W RTU 1 GM/50 ML RTUPB IV SCH ×2 (09:57→21:44)
[2019-03-02] MEDS: AZITHROMYCIN 250 MG TABLET PO SCH (09:57)
--- NOTE | 2019-03-02 12:46 | PDOC CRITICAL CARE PROG REPORT ---
General Date:: 03/02/19 ICU Day:: 2 Hospital Day:: 2 Resuscitation Status: Full Code Reason for ICU Addmission:: Hypotension; Pneumonia - Medications: Medications reviewed and adjusted accordingly: Yes Physical Exam Vital Signs: Temp Pulse Resp BP Pulse Ox 98.4 F 91 26 H 140/85 H 96 03/02/19 12:00 03/02/19 12:00 03/02/19 12:00 03/02/19 12:00 03/02/19 12:00 Intake & Output 03/01/19 03/02/19 03/03/19 06:59 06:59 06:59 Intake Total 7447 Output Total 5550 770 Balance 1897 -770 Weight 103.5 kg 106.5 kg Weight/Height Weight 106.5 kg Height 5 ft 1 in General appearance: PRESENT: no acute distress Head exam: PRESENT: atraumatic, normocephalic Eye exam: PRESENT: conjunctiva pink, EOMI, PERRLA. ABSENT: nystagmus, scleral icterus Ear exam: PRESENT: normal external ear exam Mouth exam: PRESENT: moist Neck exam: PRESENT: full ROM. ABSENT: JVD, lymphadenopathy, tenderness Respiratory exam: PRESENT: symmetrical, wheezes. ABSENT: accessory muscle use, chest wall tenderness, crackles, rales Cardiovascular exam: PRESENT: RRR Pulses: PRESENT: normal radial pulses, normal dorsalis pedis pul GI/Abdominal exam: PRESENT: normal bowel sounds, soft. ABSENT: distended, firm, guarding, mass, Barrett's sign, rebound, tenderness Rectal exam: PRESENT: deferred Gentrourinary exam: PRESENT: indwelling catheter Neurological exam: PRESENT: awake, oriented to person, oriented to place, oriented to time, oriented to situation, CN II-XII grossly intact Psychiatric exam: PRESENT: agitated, anxious Skin exam: PRESENT: dry, intact, warm. ABSENT: cyanosis, rash Laboratory/Radiographs Laboratory Results: 03/02/19 05:06 03/02/19 05:06 03/01/19 03/01/19 03/01/19 10:56 13:27 18:51 WBC RBC Hgb Hct MCV MCH MCHC RDW Plt Count Seg Neutrophils % Sodium 137.9 Potassium 4.5 Chloride 107 Carbon Dioxide 15 L Anion Gap 16 BUN 30 H Creatinine 3.41 H Est GFR ( Amer) 17 L Glucose 224 H Lactic Acid 1.7 1.4 Calcium 8.2 L Phosphorus Magnesium Total Bilirubin AST Alkaline Phosphatase Total Protein Albumin Lipase 03/02/19 03/02/19 05:06 05:06 WBC 9.5 RBC 3.16 L Hgb 10.6 L Hct 30.3 L MCV 96 MCH 33.5 H MCHC 35.0 RDW 13.5 Plt Count 261 Seg Neutrophils % 86.5 H Sodium 139.3 Potassium 4.7 Chloride 109 H Carbon Dioxide 20 L Anion Gap 10 BUN 28 H Creatinine 1.85 H Est GFR ( Amer) 35 L Glucose 150 H Lactic Acid Calcium 9.0 Phosphorus 3.4 Magnesium 1.5 L Total Bilirubin 0.4 AST 30 Alkaline Phosphatase 93 Total Protein 7.3 Albumin 3.5 Lipase 271.3 Impressions: Renal Ultrasound 03/01/19 00:00 IMPRESSION: NO HYDRONEPHROSIS OR ACUTE FINDINGS. Chest X-Ray 03/01/19 07:35 IMPRESSION: Subtle heterogeneous opacity of the left lung base, concerning for infection or aspiration. Cardiomegaly. All labs, radiographs, diagnostic studies and EKGs were personally reviewed: Yes In addition, reports of radiographic and diagnostic studies were read: Yes Assessment and Plan - Diagnosis (1) Alcohol withdrawal Qualifiers: Complication of substance-induced condition: uncomplicated Qualified Code(s): F10.230 - Alcohol dependence with withdrawal, uncomplicated Is this a current diagnosis for this admission?: Yes (2) Acute renal failure Qualifiers: Acute renal failure type: unspecified Qualified Code(s): N17.9 - Acute kidney failure, unspecified Is this a current diagnosis for this admission?: Yes (3) Hypoxia Is this a current diagnosis for this admission?: Yes (4) Left lower lobe pneumonia Qualifiers: Pneumonia type: due to unspecified organism Qualified Code(s): J18.9 - Pneumonia, unspecified organism Is this a current diagnosis for this admission?: Yes (5) Alcohol abuse Is this a current diagnosis for this admission?: Yes (6) Alcohol intoxication Qualifiers: Complication of substance-induced condition: uncomplicated Qualified Code(s): F10.920 - Alcohol use, unspecified with intoxication, uncomplicated Is this a current diagnosis for this admission?: Yes (7) Chest pain Qualifiers: Chest pain type: unspecified Qualified Code(s): R07.9 - Chest pain, unspe cified Is this a current diagnosis for this admission?: Yes (8) Left rib fracture Qualifiers: Encounter type: initial encounter Rib fracture type: single rib Fracture type: closed Qualified Code(s): S22.32XA - Fracture of one rib, left side, ini tial encounter for closed fracture Is this a current diagnosis for this admission?: Yes (9) Hypertension Qualifiers: Hypertension type: essential hypertension Qualified Code(s): I10 - Essential (primary) hypertension Is this a current diagnosis for this admission?: Yes (10) Hypothyroidism Qualifiers: Hypothyroidism type: acquired Qualified Code(s): E03.9 - Hypothyroidism, unspecified Is this a current diagnosis for this admission?: Yes Plan Summary: 48yo F admitted yesterday with hypotension secondary to presumed pneumonia. Patient was profoundly hypovolemic and with extensive crystalloid resuscitation her blood pressure normalized. She became acutely agitated this morning, tachypnic, hypertensive, tachycardic and appeared in distress. She was given 5mg of ativan IV and her symptoms resolved. She has a history of severe alcohol withdrawal and is likely showing signs from a repeat episode. Patient will remain in ICU on close monitoring with CIWA score monitored. Continue Ativan for withdrawal/symptom management. Will also give dose of hydralazine for HTN not controlled by beta blockade. Should the patient become too sedate or deteriorate, have low threshold to intubate and heavily sedate. Critical Time Critical Time (minutes): 75 Level of Care: ICU -: 1. The care of a critical patient is a dynamic process. This note is a guest experience representative synopsis but static in nature. The timeframe for treatments given in order is not necessarily the actual time these treatments may have been done. 2. This patient requires critical care secondary to ongoing requirements for therapy not offered or safe outside the critical care environment. Transfer to a lower level of care will result in altered life or limb morbidity and mor tality. 3. Multidisciplinary rounds completed. 4. ABCDE bundle addressed.
[2019-03-02] MEDS ORDERED: THIAMINE HCL 100 MG, FOLIC ACID 1 MG in NORMAL SALINE 250 ML IV ONE (21:00)
[2019-03-02] MEDS ORDERED: FOLIC ACID INJ 5 MG/1 ML 10 ML VIAL IV SCH (22:00)
[2019-03-02] MEDS: MAGNESIUM SULFATE/D5W 1 GM/100 ML RTUPB IV SCH ×2 (22:05→23:08)
[2019-03-02] MEDS ORDERED: ACETAMINOPHEN 325 MG TABLET PO ONE (22:45)
[2019-03-03] MEDS: HYDRALAZINE HCL INJ/PF 20 MG/1 ML SDV IV PRN ×2 (02:38→11:43)
[2019-03-03] MEDS: LORAZEPAM INJ 2 MG/1 ML VIAL IV PRN ×8 (02:38→21:40)
[2019-03-03] MEDS ORDERED: ONDANSETRON HCL INJ/PF 4 MG/2 ML SDV ONE (03:06)
[2019-03-03 04:16] LABS: ABSOLUTE BASOPHILS # (AUTO) 0.1 10^3/uL (0.0-0.2); ABSOLUTE LYMPHOCYTES (AUTO) 1.3 10^3/uL (0.5-4.7); ABSOLUTE MONOCYTES (AUTO) 1.3 10^3/uL (0.1-1.4); ABSOLUTE NEUT (AUTO) 7.5 10^3/uL (1.7-8.2); BASOPHILS % (AUTO) 1.1 % (0-2); HEMATOCRIT 31.5 % (36.0-47.0); HEMOGLOBIN 10.8 g/dL (12.0-15.5); LYMPHOCYTES % (AUTO) 12.7 % (13-45); MEAN CORPUSCULAR HEMOGLOBIN 33.2 pg (27.0-33.4); MEAN CORPUSCULAR HGB CONC 34.3 g/dL (32.0-36.0); MEAN CORPUSCULAR VOLUME 97 fl (80-97); MONOCYTES % (AUTO) 13.1 % (3-13); PLATELET COUNT 204 10^3/uL (150-450); RED BLOOD COUNT 3.25 10^6/uL (3.72-5.28); RED CELL DISTRIBUTION WIDTH 14.1 % (11.5-14.0); SEGMENTED NEUTROPHILS % (AUTO) 73.1 % (42-78); TOTAL CELLS COUNTED % (AUTO) 100 %; WHITE BLOOD COUNT 10.3 10^3/uL (4.0-10.5)
[2019-03-03] MEDS ORDERED: ONDANSETRON HCL INJ/PF 4 MG/2 ML SDV IV ONE (04:30)
[2019-03-03 04:35] LABS: ALBUMIN 3.5 g/dL (3.5-5.0); ALKALINE PHOSPHATASE 86 U/L (38-126); ANION GAP 9 (5-19); ASPARTATE AMINO TRANSFERASE 29 U/L (14-36); BILIRUBIN,DIRECT 0.3 mg/dL (0.0-0.4); BILIRUBIN,TOTAL 0.6 mg/dL (0.2-1.3); BLOOD UREA NITROGEN 24 mg/dL (7-20); CARBON DIOXIDE 21 mmol/L (22-30); CHLORIDE 106 mmol/L (98-107); GLUCOSE 109 mg/dL (75-110); PHOSPHORUS 2.3 mg/dL (2.5-4.5); POTASSIUM 5.1 mmol/L (3.6-5.0); TOTAL PROTEIN 7.2 g/dL (6.3-8.2)
[2019-03-03] MEDS: HEPARIN SOD (PORCINE) 5,000 UNIT/ML 1 ML VIAL SUBCUT SCH ×3 (05:06→21:24)
[2019-03-03] MEDS ORDERED: MORPHINE SULFATE 10 MG/ML INJ IV ONE (06:00)
[2019-03-03] MEDS: AZITHROMYCIN 250 MG TABLET PO SCH (09:46)
[2019-03-03] MEDS: CEFEPIME 1 GM/D5W RTU 1 GM/50 ML RTUPB IV SCH (09:46)
[2019-03-03] MEDS: FOLIC ACID 1 MG in NORMAL SALINE 50 ML IV SCH (10:52)
[2019-03-03] MEDS: NORMAL SALINE 1000 ML 1,000 ML IV PRN ×2 (12:21→22:30)
[2019-03-03] MEDS ORDERED: DIAZEPAM 5 MG TABLET PO ONE (15:45)
--- NOTE | 2019-03-03 15:51 | PDOC CRITICAL CARE PROG REPORT ---
General Date:: 03/03/19 Resuscitation Status: Full Code Reason for ICU Addmission:: Hypotension; Pneumonia - Medications: Medications reviewed and adjusted accordingly: Yes Physical Exam Vital Signs: Temp Pulse Resp BP Pulse Ox 101 F H 101 H 26 H 154/87 H 95 03/03/19 12:00 03/03/19 14:00 03/03/19 14:00 03/03/19 14:00 03/03/19 14:00 Intake & Output 03/02/19 03/03/19 03/04/19 06:59 06:59 06:59 Intake Total 7447 1150 665.2 Output Total 5550 3320 2150 Balance 1897 -2170 -1484.8 Weight 106.5 kg 107 kg Weight/Height Weight 107 kg Height 5 ft 1 in General appearance: PRESENT: mild distress Head exam: PRESENT: atraumatic, normocephalic Eye exam: PRESENT: EOMI, PERRLA. ABSENT: conjunctival injection, nystagmus, scleral icterus Ear exam: PRESENT: normal external ear exam, TM's normal bilaterally. ABSENT: bleeding, drainage Mouth exam: PRESENT: dry mucosa, tongue midline Neck exam: PRESENT: full ROM, tenderness - There is reproducible tenderness along the right paraspinal musculature into the right scapula/trapezius.. ABSENT: carotid bruit, JVD, tracheal deviation Respiratory exam: PRESENT: clear to auscultation thomas. ABSENT: accessory muscle use, rales, retraction, rhonchi Cardiovascular exam: PRESENT: tachycardia. ABSENT: diastolic murmur, gallop, rubs, systolic murmur Pulses: PRESENT: normal carotid pulses, normal femoral pulses Vascular exam: PRESENT: normal capillary refill GI/Abdominal exam: PRESENT: soft. ABSENT: distended, firm, guarding, rebound, tenderness Rectal exam: PRESENT: deferred Extremities exam: PRESENT: full ROM. ABSENT: calf tenderness, pedal edema Musculoskeletal exam: PRESENT: full ROM Neurological exam: PRESENT: alert, awake, oriented to person, oriented to place, oriented to situation, CN II-XII grossly intact. ABSENT: oriented to time Psychiatric exam: PRESENT: agitated Skin exam: PRESENT: dry, intact, warm. ABSENT: cyanosis, rash Laboratory/Radiographs Laboratory Results: 03/03/19 04:00 03/03/19 04:00 03/03/19 03/03/19 03/03/19 04:00 04:00 04:00 WBC 10.3 RBC 3.25 L Hgb 10.8 L Hct 31.5 L MCV 97 MCH 33.2 MCHC 34.3 RDW 14.1 H Plt Count 204 Seg Neutrophils % 73.1 Sodium 135.5 L Potassium 5.1 H Chloride 106 Carbon Dioxide 21 L Anion Gap 9 BUN 24 H Creatinine 0.97 Est GFR ( Amer) > 60 Glucose 109 Calcium 9.0 Phosphorus 2.3 L Magnesium 1.7 Total Bilirubin 0.6 AST 29 Alkaline Phosphatase 86 Total Protein 7.2 Albumin 3.5 TSH 1.77 03/01/19 07:50 Catheterized Urine Urine Culture - Final NO GROWTH 2 DAYS Impressions: Renal Ultrasound 03/01/19 00:00 IMPRESSION: NO HYDRONEPHROSIS OR ACUTE FINDINGS. Chest X-Ray 03/01/19 07:35 IMPRESSION: Subtle heterogeneous opacity of the left lung base, concerning for infection or aspiration. Cardiomegaly. All labs, radiographs, diagnostic studies and EKGs were personally reviewed: Yes In addition, reports of radiographic and diagnostic studies were read: Yes Assessment and Plan - Diagnosis (1) Alcohol withdrawal Qualifiers: Complication of substance-induced condition: uncomplicated Qualified Code(s): F10.230 - Alcohol dependence with withdrawal, uncomplicated Is this a current diagnosis for this admission?: Yes (2) Acute renal failure Qualifiers: Acute renal failure type: unspecified Qualified Code(s): N17.9 - Acute kidney failure, unspecified Is this a current diagnosis for this admission?: Yes (3) Hypoxia Is this a current diagnosis for this admission?: Yes (4) Left lower lobe pneumonia Qualifiers: Pneumonia type: due to unspecified organism Qualified Code(s): J18.9 - Pneumonia, unspecified organism Is this a current diagnosis for this admission?: Yes (5) Alcohol abuse Is this a current diagnosis for this admission?: Yes (6) Alcohol intoxication Qualifiers: Complication of substance-induced condition: uncomplicated Qualified Code(s): F10.920 - Alcohol use, unspecified with intoxication, uncomplicated Is this a current diagnosis for this admission?: Yes (7) Chest pain Qualifiers: Chest pain type: unspecified Qualified Code(s): R07.9 - Chest pain, unspecified Is this a current diagnosis for this admission?: Yes (8) Left rib fracture Qualifiers: Encounter type: initial encounter Rib fracture type: single rib Fracture type: closed Qualified Code(s): S22.32XA - Fracture of one rib, left side, initial encounter for closed fracture Is this a current diagnosis for this admission?: Yes (9) Hypertension Qualifiers: Hypertension type: essential hypertension Qualified Code(s): I10 - Essential (primary) hypertension Is this a current diagnosis for this admission?: Yes (10) Hypothyroidism Qualifiers: Hypothyroidism type: acquired Qualified Code(s): E03.9 - Hypothyroidism, unspecified Is this a current diagnosis for this admission?: Yes Plan Summary: 48yo F admitted with hypotension secondary to presumed pneumonia. She has a history of severe alcohol withdrawal and is actively being treated for her with drawal. Patient will remain in ICU on close monitoring with CIWA score monitored. Continue Ativan for withdrawal/symptom management. Began complaining of right ear and neck pain today. Pain is reproducible with palpation of the right trapezius/paraspinal muscles and TM's clear bilaterally with no erythema. Will give dose of PO valium to address muscle spasm/anxiety. Continue to follow closely. Critical Time Critical Time (minutes): 60 Level of Care: ICU -: 1. The care of a critical patient is a dynamic process. This note is a pharmaceutical representative synopsis but static in nature. The timeframe for treatments given in order is not necessarily the actual time these treatments may have been done. 2. This patient requires critical care secondary to ongoing requirements for therapy not offered or safe outside the critical care environment. Transfer to a lower level of care will result in altered life or limb morbidity and mortality. 3. Multidisciplinary rounds completed. 4. ABCDE bundle addressed.
[2019-03-03] MEDS ORDERED: MAGNESIUM SULFATE/D5W 1 GM/100 ML RTUPB IV ONE (16:15)
[2019-03-03] MEDS ORDERED: IPRATROPIUM/ALBUTEROL 0.5-2.5 MG/3 ML AMPUL NEB ONE (16:49)
[2019-03-03] MEDS: IPRATROPIUM/ALBUTEROL 0.5-2.5 MG/3 ML AMPUL NEB SCH ×2 (16:50→21:24)
[2019-03-03] MEDS ORDERED: ACETAMINOPHEN 325 MG TABLET ONE (21:21)
[2019-03-03] MEDS ORDERED: ACETAMINOPHEN 325 MG TABLET PO ONE (21:45)
[2019-03-04] MEDS: LORAZEPAM INJ 2 MG/1 ML VIAL IV PRN ×2 (01:38→09:51)
[2019-03-04] MEDS ORDERED: METOPROLOL TARTRATE PF/INJ 5 MG/5 ML SDV IV ONE ×3 (01:57→18:13)
[2019-03-04] MEDS: IPRATROPIUM/ALBUTEROL 0.5-2.5 MG/3 ML AMPUL NEB SCH ×4 (02:35→21:45)
[2019-03-04 04:38] LABS: ABSOLUTE BASOPHILS # (AUTO) 0.1 10^3/uL (0.0-0.2); ABSOLUTE EOSINOPHILS # (AUTO) 0.2 10^3/uL (0.0-0.6); ABSOLUTE LYMPHOCYTES (AUTO) 1.8 10^3/uL (0.5-4.7); ABSOLUTE MONOCYTES (AUTO) 0.8 10^3/uL (0.1-1.4); ABSOLUTE NEUT (AUTO) 4.9 10^3/uL (1.7-8.2); BASOPHILS % (AUTO) 1.4 % (0-2); EOSINOPHILS % (AUTO) 2.2 % (0-6); HEMATOCRIT 31.3 % (36.0-47.0); HEMOGLOBIN 10.7 g/dL (12.0-15.5); LYMPHOCYTES % (AUTO) 23.3 % (13-45); MEAN CORPUSCULAR HGB CONC 34.3 g/dL (32.0-36.0); MEAN CORPUSCULAR VOLUME 96 fl (80-97); MONOCYTES % (AUTO) 10.4 % (3-13); PLATELET COUNT 232 10^3/uL (150-450); RED BLOOD COUNT 3.25 10^6/uL (3.72-5.28); RED CELL DISTRIBUTION WIDTH 13.8 % (11.5-14.0); SEGMENTED NEUTROPHILS % (AUTO) 62.7 % (42-78); TOTAL CELLS COUNTED % (AUTO) 100 %; WHITE BLOOD COUNT 7.9 10^3/uL (4.0-10.5)
[2019-03-04 04:59] LABS: ALBUMIN 2.9 g/dL (3.5-5.0); ALKALINE PHOSPHATASE 88 U/L (38-126); ANION GAP 6 (5-19); ASPARTATE AMINO TRANSFERASE 34 U/L (14-36); BILIRUBIN,DIRECT 0.3 mg/dL (0.0-0.4); BILIRUBIN,TOTAL 0.5 mg/dL (0.2-1.3); BLOOD UREA NITROGEN 15 mg/dL (7-20); CALCIUM 8.8 mg/dL (8.4-10.2); CARBON DIOXIDE 26 mmol/L (22-30); CHLORIDE 106 mmol/L (98-107); GLUCOSE 111 mg/dL (75-110); PHOSPHORUS 3.6 mg/dL (2.5-4.5); POTASSIUM 4.3 mmol/L (3.6-5.0); TOTAL PROTEIN 6.2 g/dL (6.3-8.2)
[2019-03-04] MEDS: HEPARIN SOD (PORCINE) 5,000 UNIT/ML 1 ML VIAL SUBCUT SCH ×3 (05:11→21:07)
[2019-03-04] MEDS: AZITHROMYCIN 250 MG TABLET PO SCH (09:51)
[2019-03-04] MEDS: FOLIC ACID 1 MG in NORMAL SALINE 50 ML IV SCH (09:51)
[2019-03-04] MEDS: NORMAL SALINE 1000 ML 1,000 ML IV PRN (09:53)
[2019-03-04] MEDS ORDERED: DILTIAZEM HCL 240 MG CAPSULE.CR PO SCH (11:00)
[2019-03-04] MEDS: METOPROLOL SUCCINATE 25 MG TAB.SR.24H PO SCH (11:18)
--- NOTE | 2019-03-04 13:25 | PDOC CRITICAL CARE PROG REPORT ---
General Date:: 03/04/19 ICU Day:: 3 Hospital Day:: 3 Resuscitation Status: Full Code Events in the past 12 to 24 Hours:: Patient did well overnight, has required much less ativan and is alert and oriented today. Neck pain resolved with single dose of valium for muscle spasm. Reason for ICU Addmission:: Hypotension; Pneumonia - Medications: Medications reviewed and adjusted accordingly: Yes Physical Exam Vital Signs: Temp Pulse Resp BP Pulse Ox 98.2 F 101 H 25 H 123/72 96 03/04/19 12:00 03/04/19 12:00 03/04/19 12:00 03/04/19 12:00 03/04/19 12:00 Intake & Output 03/03/19 03/04/19 03/05/19 06:59 06:59 06:59 Intake Total 1150 1905.2 1000 Output Total 3320 4950 900 Balance -2170 -3044.8 100 Weight 107 kg 104 kg Weight/Height Weight 104 kg Height 5 ft 1 in General appearance: PRESENT: no acute distress, disheveled, obese Head exam: PRESENT: atraumatic, normocephalic Eye exam: PRESENT: conjunctiva pink, EOMI, PERRLA. ABSENT: scleral icterus Ear exam: PRESENT: normal external ear exam Mouth exam: PRESENT: moist, tongue midline Neck exam: ABSENT: carotid bruit, JVD, lymphadenopathy, tenderness, thyromegaly Respiratory exam: PRESENT: clear to auscultation thomas. ABSENT: rales, rhonchi, wheezes Cardiovascular exam: PRESENT: tachycardia. ABSENT: diastolic murmur, irregular rhythm, rubs, systolic murmur Pulses: PRESENT: normal dorsalis pedis pul Vascular exam: PRESENT: normal capillary refill GI/Abdominal exam: PRESENT: normal bowel sounds, soft. ABSENT: distended, guarding, mass, organolmegaly, rebound, tenderness Rectal exam: PRESENT: deferred Extremities exam: PRESENT: full ROM. ABSENT: calf tenderness, clubbing, pedal edema Neurological exam: PRESENT: alert, awake, oriented to person, oriented to place, oriented to situation, CN II-XII grossly intact. ABSENT: oriented to time Psychiatric exam: PRESENT: appropriate affect Skin exam: PRESENT: dry, intact, warm. ABSENT: cyanosis, rash Laboratory/Radiographs Laboratory Results: 03/04/19 04:19 03/04/19 04:19 03/04/19 03/04/19 04:19 04:19 WBC 7.9 RBC 3.25 L Hgb 10.7 L Hct 31.3 L MCV 96 MCH 33.0 MCHC 34.3 RDW 13.8 Plt Count 232 Seg Neutrophils % 62.7 Sodium 137.6 Potassium 4.3 Chloride 106 Carbon Dioxide 26 Anion Gap 6 BUN 15 Creatinine 0.75 Est GFR ( Amer) > 60 Glucose 111 H Calcium 8.8 Phosphorus 3.6 Magnesium 1.6 Total Bilirubin 0.5 AST 34 Alkaline Phosphatase 88 Total Protein 6.2 L Albumin 2.9 L 03/01/19 07:50 Catheterized Urine Urine Culture - Final NO GROWTH 2 DAYS Impressions: Renal Ultrasound 03/01/19 00:00 IMPRESSION: NO HYDRONEPHROSIS OR ACUTE FINDINGS. Chest X-Ray 03/01/19 07:35 IMPRESSION: Subtle heterogeneous opacity of the left lung base, concerning for infection or aspiration. Cardiomegaly. Assessment and Plan - Diagnosis (1) Alcohol withdrawal Qualifiers: Complication of substance-induced condition: uncomplicated Qualified Code(s): F10.230 - Alcohol dependence with withdrawal, uncomplicated Is this a current diagnosis for this admission?: Yes (2) Acute renal failure Qualifiers: Acute renal failure type: unspecified Qualified Code(s): N17.9 - Acute kidney failure, unspecified Is this a current diagnosis for this admission?: Yes (3) Hypoxia Is this a current diagnosis for this admission?: Yes (4) Left lower lobe pneumonia Qualifiers: Pneumonia type: due to unspecified organism Qualified Code(s): J18.9 - Pneumonia, unspecified organism Is this a current diagnosis for this admission?: Yes (5) Alcohol abuse Is this a current diagnosis for this admission?: Yes (6) Alcohol intoxication Qualifiers: Complication of substance-induced condition: uncomplicated Qualified Co de(s): F10.920 - Alcohol use, unspecified with intoxication, uncomplicated Is this a current diagnosis for this admission?: Yes (7) Chest pain Qualifiers: Chest pain type: unspecified Qualified Code(s): R07.9 - Chest pain, unspecified Is this a current diagnosis for this admission?: Yes (8) Left rib fracture Qualifiers: Encounter type: initial encounter Rib fracture type: single rib Fracture type: closed Qualified Code(s): S22.32XA - Fracture of one rib, left side, initial encounter for closed fracture Is this a current diagnosis for this admission?: Yes (9) Hypertension Qualifiers: Hypertension type: essential hypertension Qualified Code(s): I10 - Essential (primary) hypertension Is this a current diagnosis for this admission?: Yes (10) Hypothyroidism Qualifiers: Hypothyroidism type: acquired Qualified Code(s): E03.9 - Hypothyroidism, unspecified Is this a current diagnosis for this admission?: Yes Critical Time Critical Time (minutes): 30 Level of Care: ICU -: 1. The care of a critical patient is a dynamic process. This note is a healthcare sales representative synopsis but static in nature. The timeframe for treatments given in order is not necessarily the actual time these treatments may have been done. 2. This patient requires critical care secondary to ongoing requirements for therapy not offered or safe outside the critical care environment. Transfer to a lower level of care will result in altered life or limb morbidity and mortality. 3. Multidisciplinary rounds completed. 4. ABCDE bundle addressed.
[2019-03-04] MEDS: LORAZEPAM 1 MG TABLET PO SCH ×2 (14:42→21:07)
[2019-03-04] MEDS: DILTIAZEM HCL 240 MG CAPSULE.CR PO SCH (18:15)
[2019-03-05] MEDS: IPRATROPIUM/ALBUTEROL 0.5-2.5 MG/3 ML AMPUL NEB SCH ×4 (02:24→19:32)
[2019-03-05] MEDS: LORAZEPAM 1 MG TABLET PO SCH ×3 (05:32→21:20)
[2019-03-05] MEDS: HEPARIN SOD (PORCINE) 5,000 UNIT/ML 1 ML VIAL SUBCUT SCH (05:32)
[2019-03-05] MEDS ORDERED: METOPROLOL TARTRATE PF/INJ 5 MG/5 ML SDV IV ONE ×2 (09:33→10:30)
[2019-03-05] MEDS: AZITHROMYCIN 250 MG TABLET PO SCH (09:46)
[2019-03-05] MEDS: METOPROLOL SUCCINATE 25 MG TAB.SR.24H PO SCH (09:46)
[2019-03-05] MEDS: DILTIAZEM HCL 240 MG CAPSULE.CR PO SCH (09:46)
[2019-03-05 11:25] LABS: ANION GAP 11 (5-19); BLOOD UREA NITROGEN 12 mg/dL (7-20); CALCIUM 9.3 mg/dL (8.4-10.2); CARBON DIOXIDE 26 mmol/L (22-30); CHLORIDE 101 mmol/L (98-107); GLUCOSE 120 mg/dL (75-110); POTASSIUM 3.9 mmol/L (3.6-5.0)
[2019-03-05] MEDS: HYDROCHLOROTHIAZIDE 25 MG TABLET PO SCH (11:28)
[2019-03-05] MEDS: LISINOPRIL 10 MG TABLET PO SCH (11:28)
[2019-03-05] MEDS: LEVOTHYROXINE SODIUM 0.088 MG TABLET PO SCH (11:29)
[2019-03-05] MEDS: FOLIC ACID 1 MG TABLET PO SCH (11:29)
[2019-03-05] MEDS: APIXABAN 5 MG TABLET PO SCH ×2 (11:29→17:19)
[2019-03-05] MEDS: THIAMINE HCL 100 MG TABLET PO SCH (11:29)
[2019-03-05] MEDS: FLUTICASONE/VILANTEROL 100-25 MCG/DOSE IH SCH (11:30)
--- NOTE | 2019-03-05 11:36 | PDOC CRITICAL CARE PROG REPORT ---
General Date:: 03/05/19 Resuscitation Status: Full Code Events in the past 12 to 24 Hours:: Patient awake and alert. Has been awaiting bed for downgrade since yesterday. Given resources for treatment facilities but patient would prefer to address that at a later time. Reason for ICU Addmission:: Hypotension; Pneumonia Physical Exam Vital Signs: Temp Pulse Resp BP Pulse Ox 98.0 F 74 22 H 155/93 H 95 03/05/19 09:08 03/05/19 09:28 03/05/19 09:10 03/05/19 09:10 03/05/19 09:08 Intake & Output 03/04/19 03/05/19 03/06/19 06:59 06:59 06:59 Intake Total 1905.2 1000 1175.2 Output Total 4950 1635 300 Balance -3044.8 -635 875.2 Weight 104 kg Weight/Height Weight 104 kg Height 5 ft 1 in General appearance: PRESENT: no acute distress, obese Head exam: PRESENT: atraumatic, normocephalic Eye exam: PRESENT: conjunctiva pink, EOMI, PERRLA. ABSENT: scleral icterus Ear exam: PRESENT: normal external ear exam Mouth exam: PRESENT: moist, tongue midline Neck exam: ABSENT: carotid bruit, JVD, lymphadenopathy, thyromegaly Respiratory exam: PRESENT: clear to auscultation thomas. ABSENT: rales, rhonchi, wheezes Cardiovascular exam: PRESENT: irregular rhythm, tachycardia. ABSENT: diastolic murmur, rubs, systolic murmur Pulses: PRESENT: normal dorsalis pedis pul Vascular exam: PRESENT: normal capillary refill GI/Abdominal exam: PRESENT: normal bowel sounds, soft. ABSENT: distended, guarding, mass, organolmegaly, rebound, tenderness Rectal exam: PRESENT: deferred Extremities exam: PRESENT: full ROM. ABSENT: calf tenderness, clubbing, pedal edema Neurological exam: PRESENT: alert, awake, oriented to person, oriented to place, oriented to time, oriented to situation, CN II-XII grossly intact. ABSENT: motor sensory deficit Skin exam: PRESENT: dry, intact, warm. ABSENT: cyanosis, rash Laboratory/Radiographs Laboratory Results: 03/04/19 04:19 03/05/19 10:40 03/05/19 10:40 Sodium 137.7 Potassium 3.9 Chloride 101 Carbon Dioxide 26 Anion Gap 11 BUN 12 Creatinine 0.72 Est GFR ( Amer) > 60 Glucose 120 H Calcium 9.3 Impressions: Renal Ultrasound 03/01/19 00:00 IMPRESSION: NO HYDRONEPHROSIS OR ACUTE FINDINGS. Chest X-Ray 03/01/19 07:35 IMPRESSION: Subtle heterogeneous opacity of the left lung base, concerning for infection or aspiration. Cardiomegaly. All labs, radiographs, diagnostic studies and EKGs were personally reviewed: Yes In addition, reports of radiographic and diagnostic studies were read: Yes Assessment and Plan - Diagnosis (1) Alcohol withdrawal Qualifiers: Complication of substance-induced condition: uncomplicated Qualified Code(s): F10.230 - Alcohol dependence with withdrawal, uncomplicated Is this a current diagnosis for this admission?: Yes (2) Acute renal failure Qualifiers: Acute renal failure type: unspecified Qualified Code(s): N17.9 - Acute kidney failure, unspecified Is this a current diagnosis for this admission?: Yes (3) Hypoxia Is this a current diagnosis for this admission?: Yes (4) Left lower lobe pneumonia Qualifiers: Pneumonia type: due to unspecified organism Qualified Code(s): J18.9 - Pneumonia, unspecified organism Is this a current diagnosis for this admission?: Yes (5) Alcohol abuse Is this a current diagnosis for this admission?: Yes (6) Alcohol intoxication Qualifiers: Complication of substance-induced condition: uncomplicated Qualified Code(s): F10.920 - Alcohol use, unspecified with intoxication, uncomplicated Is this a current diagnosis for this admission?: Yes (7) Chest pain Qualifiers: Chest pain type: unspecified Qualified Code(s): R07.9 - Chest pain, unspecified Is this a current diagnosis for this admission?: Yes (8) Left rib fracture Qualifiers: Encounter type: initial encounter Rib fracture type: single rib Fracture type: closed Qualified Code(s): S22.32XA - Fracture of one rib, left side, initial encounter for closed fracture Is this a current diagnosis for this admission?: Yes (9) Hypertension Qualifiers: Hypertension type: essential hypertension Qualified Code(s): I10 - Essential (primary) hypertension Is this a current diagnosis for this admission?: Yes (10) Hypothyroidism Qualifiers: Hypothyroidism type: acquired Qualified Code(s): E03.9 - Hypothyroidism, unspecified Is this a current diagnosis for this admission?: Yes Plan Summary: 48yo F admitted with hypotension secondary to presumed pneumonia. She has a history of severe alcohol withdrawal and was actively being treated for her withdrawal until yesterday when she became much more calm and required much less ativan. Transitoined from IV to PO regimen and patient remains calm. Plan to DC ABX tomorrow. PO ativan taper done tonight. After a short run of tachycardia to the 150's this morning she was given 5mg of lopressor but she is absolutely appropriate for telemetry floor. No ICU needs at this time. Awaiting bed on floor. Critical Time Critical Time (minutes): 30 Level of Care: TELE Anticipated discharge: Home Within: within 72 hours -: 1. The care of a critical patient is a dynamic process. This note is a [employer] school admissions representative synopsis but static in nature. The timeframe for treatments given in order is not necessarily the actual time these treatments may have been done. 2. Multidisciplinary rounds completed.
--- NOTE | 2019-03-05 12:54 | Progress Note ---
Provider Note Provider Note: Patient had episodes of a-fib with RVR this morning to the 140's despite being on diltiazem 240mg PO and Toprol XL 25mg PO. Brief discussion had with cardiology who recommended stopping her diltiazem and increasing her metoprolol to 50mg BID (then 100mg BID if needed) as long as her blood pressure tolerates the increases. In her current state of continued alcohol abuse it was felt she would respond better to beta blockade than a calcium channel donis.
[2019-03-05] MEDS ORDERED: METOPROLOL TARTRATE PF/INJ 5 MG/5 ML SDV IV PRN (15:10)
--- NOTE | 2019-03-05 15:18 | Progress Note ---
Provider Note Provider Note: Assumed care from star route mail driver after receiving signout. Patient has downgraded from ICU to [facility] floor. Briefly, patient is a 48-year-old female with a history of alcohol abuse, atrial fibrillation, hypertension, who presented with complaints of shortness of breath and panicking. She has been noted to be hypotensive in the ER was subsequently admitted to the ICU. There was initial concern for possible pneumonia and septic shock. However chest x-ray was noted to just have very minimal opacity in the left lobe which was less likely pneumonia given normal white count and no significant cough. Patient never required any pressors but responded to IV fluids received about 6 L. Blood pressure has been normal ever since. Patient did receive cefepime and azithromycin for a few days after which antibiotics were discontinued given low suspicion for actual infectious etiology of hypotension. Of note patient went into withdrawal in the ICU and required a few days of frequent doses of Ativan. Alcohol withdrawal also triggered patient's atrial fibrillation going into the RVR which has been responding well to Lopressor. At this time patient is no longer withdrawing and patient is being transferred to the medical floor. Patient currently states she feels fine. Was enjoyed mild shortness of breath but nothing too significant. Appears very comfortable at rest. Lungs are clear to auscultation. Mildly hypertensive. Medications and orders reviewed. EtOH abuse-no longer an active withdrawal. On Ativan twice daily currently. Continue to monitor CIWA. Atrial fibrillation-Lopressor every 12 hours p.o. and IV as needed. Continue Eliquis. Hypokalemia-resolved Hypertension-resume antihypertensives. Will increase dose as needed.
[2019-03-05] MEDS: ACETAMINOPHEN 325 MG TABLET PO PRN (17:19)
[2019-03-05] MEDS: METOPROLOL TARTRATE 50 MG TABLET PO SCH (21:20)
[2019-03-05] MEDS ORDERED: ATORVASTATIN CALCIUM 20 MG TABLET PO SCH (22:00)
[2019-03-05] MEDS ORDERED: VENLAFAXINE HCL 37.5 MG CAP.SR.24H PO SCH (22:00)
[2019-03-06] MEDS: IPRATROPIUM/ALBUTEROL 0.5-2.5 MG/3 ML AMPUL NEB SCH ×2 (01:49→07:47)
[2019-03-06] MEDS: ACETAMINOPHEN 325 MG TABLET PO PRN (03:41)
[2019-03-06 05:13] LABS: ANION GAP 11 (5-19); BLOOD UREA NITROGEN 16 mg/dL (7-20); CALCIUM 9.3 mg/dL (8.4-10.2); CARBON DIOXIDE 23 mmol/L (22-30); CHLORIDE 104 mmol/L (98-107); GLUCOSE 131 mg/dL (75-110); POTASSIUM 4.5 mmol/L (3.6-5.0)
[2019-03-06] MEDS: LEVOTHYROXINE SODIUM 0.088 MG TABLET PO SCH (05:35)
[2019-03-06] MEDS ORDERED: PANTOPRAZOLE SODIUM 20 MG TABLET.DR PO SCH (06:00)
[2019-03-06] MEDS: THIAMINE HCL 100 MG TABLET PO SCH (09:02)
[2019-03-06] MEDS: LISINOPRIL 10 MG TABLET PO SCH (09:02)
[2019-03-06] MEDS: HYDROCHLOROTHIAZIDE 25 MG TABLET PO SCH (09:02)
[2019-03-06] MEDS: METOPROLOL TARTRATE 50 MG TABLET PO SCH (09:02)
[2019-03-06] MEDS: FOLIC ACID 1 MG TABLET PO SCH (09:03)
[2019-03-06] MEDS: APIXABAN 5 MG TABLET PO SCH (09:03)
[2019-03-06] MEDS: FLUTICASONE/VILANTEROL 100-25 MCG/DOSE IH SCH (09:03)
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
[2019-03-06 14:00] VITALS: BP 139/93
== END 2019-03-06 15:05 | disposition home health service (06) | DRG 194 ==
LOC: ER 05:46 → EH 09:15 → ICU 11:05 → 5 03-05 15:33
PROVIDERS: ADMIT Internal Medicine; ATTEND Internal Medicine
DX: J18.9 Pneumonia, unspecified organism (principal); S22.32XA Fracture of one rib, left side, initial encounter for closed fracture; N17.9 Acute kidney failure, unspecified; F10.239 Alcohol dependence with withdrawal, unspecified; F10.229 Alcohol dependence with intoxication, unspecified; I48.91 Unspecified atrial fibrillation; I10 Essential (primary) hypertension; E87.6 Hypokalemia; E03.9 Hypothyroidism, unspecified; J44.9 Chronic obstructive pulmonary disease, unspecified; K21.9 Gastro-esophageal reflux disease without esophagitis; I25.2 Old myocardial infarction; Y90.8 Blood alcohol level of 240 mg/100 ml or more; X58.XXXA Exposure to other specified factors, initial encounter; Y93.9 Activity, unspecified; Y92.9 Unspecified place or not applicable; Z79.899 Other long term (current) drug therapy; Z79.51 Long term (current) use of inhaled steroids; Z79.01 Long term (current) use of anticoagulants
CPT/HCPCS: 36415; 51702; 71045; 76775; 80048; 80053; 80307; 81001; 82533; 82803; 83605; 83690; 83735; 84100; 84443; 84703; 85025; 85610; 87040; 87086; 93005; 93010; 94640; 96361; 96365; 96375; 99231; 99291; 99292; J0360; J0692; J1644; J2060; J2270; J2405; J2930; J3411; J3475; J3490; J7030; J7040; J7050; J7614; J7620

== ENCOUNTER 2019-03-12 06:00 | Inpatient (IN) | payer MEDICARE, MEDICAID ==
[2019-03-12] MEDS ORDERED: LEVALBUTEROL HCL NEB 1.25 MG/3 ML AMPUL NEB ONE (06:18)
[2019-03-12 06:30] LABS: ARTERIAL BLOOD BASE EXCESS -1.4 mmol/L; ARTERIAL BLOOD H2CO3 1.14 mmol/L (1.05-1.35); ARTERIAL BLOOD O2 SATURATION 94.1 % (94-98); ARTERIAL BLOOD PCO2 37.8 mmHg (35-45); ARTERIAL BLOOD PO2 69.6 mmHg (80-100); ARTERIAL BLOOD TOTAL CO2 24.2 mmol/L (21-25)
[2019-03-12 06:31] LABS: ARTERIAL BLOOD FIO2 2L
--- NOTE | 2019-03-12 07:00 | RADIOLOGY REPORT (SQ) ---
EXAM DESCRIPTION: XR CHEST 1 VIEW COMPLETED DATE/TME: 03/12/2019 06:17 CLINICAL HISTORY: shortness of Breath COMPARISON: 03/01/2019 FINDINGS: Single frontal view of the chest. Cardiomediastinal silhouette: Cardiomegaly. Lungs: Patchy bibasilar opacities. No pneumothorax. Leads overlie the chest. Low lung volumes. Bones: No acute osseous abnormality. Upper abdomen: No abnormality identified. IMPRESSION: 1. Patchy bibasilar opacities may represent bilateral pneumonic process. Continued radiographic follow-up to resolution recommended.
--- NOTE | 2019-03-12 07:13 | EKG REPORT ---
SEVERITY:- BORDERLINE ECG - SINUS TACHYCARDIA BORDERLINE T ABNORMALITIES, INFERIOR LEADS BORDERLINE FIRST DEGREE AVB IVCD : Confirmed by: Marco Somers MD 12-Mar-2019 07:12:37
[2019-03-12 07:16] LABS: ABSOLUTE BASOPHILS # (AUTO) 0.2 10^3/uL (0.0-0.2); ABSOLUTE EOSINOPHILS # (AUTO) 0.1 10^3/uL (0.0-0.6); ABSOLUTE LYMPHOCYTES (AUTO) 3.8 10^3/uL (0.5-4.7); ABSOLUTE MONOCYTES (AUTO) 0.4 10^3/uL (0.1-1.4); ABSOLUTE NEUT (AUTO) 3.5 10^3/uL (1.7-8.2); EOSINOPHILS % (AUTO) 1.1 % (0-6); HEMATOCRIT 31.1 % (36.0-47.0); HEMOGLOBIN 10.8 g/dL (12.0-15.5); LYMPHOCYTES % (AUTO) 47.7 % (13-45); MEAN CORPUSCULAR HGB CONC 34.6 g/dL (32.0-36.0); MEAN CORPUSCULAR VOLUME 98 fl (80-97); MONOCYTES % (AUTO) 5.2 % (3-13); PLATELET COUNT 438 10^3/uL (150-450); RED BLOOD COUNT 3.16 10^6/uL (3.72-5.28); RED CELL DISTRIBUTION WIDTH 14.2 % (11.5-14.0); TOTAL CELLS COUNTED % (AUTO) 100 %; WHITE BLOOD COUNT 8.1 10^3/uL (4.0-10.5)
[2019-03-12 07:42] LABS: ALCOHOL 275 mg/dL (NONE DETECTED); ALKALINE PHOSPHATASE 97 U/L (38-126); ANION GAP 13 (5-19); ASPARTATE AMINO TRANSFERASE 53 U/L (14-36); BILIRUBIN,DIRECT 0.3 mg/dL (0.0-0.4); BILIRUBIN,TOTAL 0.3 mg/dL (0.2-1.3); BLOOD UREA NITROGEN 15 mg/dL (7-20); CARBON DIOXIDE 28 mmol/L (22-30); CHLORIDE 104 mmol/L (98-107); CREATINE KINASE 81 U/L (30-135); GLUCOSE 149 mg/dL (75-110); POTASSIUM 4.4 mmol/L (3.6-5.0); TOTAL PROTEIN 7.6 g/dL (6.3-8.2)
[2019-03-12 07:54] LABS: CREATINE KINASE MB 1.1 ng/mL (<4.55); TROPONIN I 0.019 ng/mL
[2019-03-12 10:22] LABS: APPEARANCE,URINE CLEAR; BILIRUBIN,URINE NEGATIVE (NEGATIVE); COLOR,URINE YELLOW; GLUCOSE, URINE NEGATIVE (NEGATIVE); KETONES,URINE NEGATIVE (NEGATIVE); LEUKOCYTE ESTERASE,URINE NEGATIVE (NEGATIVE); NITRITE,URINE NEGATIVE (NEGATIVE); PROTEIN,URINE 30 mg/dL (NEGATIVE); URINE SPECIFIC GRAVITY 1.014; UROBILINOGEN,URINE NEGATIVE mg/dL (<2.0)
--- NOTE | 2019-03-12 10:22 | ER Document Report ---
ED Respiratory Problem - General Chief Complaint: Shortness Of Breath Stated Complaint: TROUBLE BREATHING Time Seen by Provider: 03/12/19 06:16 Primary Care Provider: BERNIE SAVAGE MD [Primary Care Provider] - Follow up as needed Mode of Arrival: Medic Information source: Patient Notes: 48-year-old woman presents to the emergency department via EMS with respiratory distress. Apparently she awoke this morning with shortness of breath use her inhaler and was unable to get relief. She was given nebulizer treatments by EMS and IV Solu-Medrol. She continued to have O2 sats in the high 80s to low 90s. Because of her increased work to breathe the patient was placed on BiPAP, improvement of the O2 sat up to 96% and decreased work to breathe. She is a heavy drinker and apparently drinks approximately 1/5 of vodka daily. States that she has not had a drink since early yesterday morning. TRAVEL OUTSIDE OF THE [place] 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 Denies: Hx Migraine, Hx Parkinson's Disease Endocrine Medical History: Reports: Hx Hypothyroidism. Denies: Hx Diabetes Tara itus Type 1, Hx Diabetes Mellitus Type 2, Hx Hyperthyroidism Renal/ Medical History: Denies: Hx End Stage Renal Disease, Hx Peritoneal Dialysis GI Medical History: Reports: Hx Gastroesophageal Reflux Disease. Denies: Hx Cirrhosis, Hx Crohn's Disease, Hx Hepatitis, Hx Hiatal Hernia, Hx Pancreatitis, Hx Ulcer, Hx Ulcerative Colitis Musculoskeletal Medical History: Denies Hx Arthritis, Denies Hx Fibromyalgia, Reports Hx Musculoskeletal Deformity, Reports Hx Musculoskeletal Trauma Skin Medical History: Denies Hx Eczema, Denies Hx Psoriasis Psychiatric Medical History: Reports: Hx Bipolar Disorder, Hx Depression Denies: Hx Schizophrenia Traumatic Medical History: Reports: Hx Fractures - R. leg. Pt. has a steel debi. Infectious Medical History: Denies: Hx Hepatitis Past Surgical History: Reports: Hx Appendectomy, Hx Cholecystectomy, Hx Orthopedic Surgery - right knee, Hx Tonsillectomy, Hx Tubal Ligation. Denies: Hx Bowel Surgery, Hx Section, Hx Hysterectomy, Hx Mastectomy - Immunizations Hx Diphtheria, Pertussis, Tetanus Vaccination: No Hx Pneumococcal Vaccination: 05/05/11 Review of Systems - Review of Systems Notes: Constitutional: Negative for fever. HENT: Negative for sore throat. Eyes: Negative for visual changes. Cardiovascular: + Tachycardia Respiratory: + Shortness of breath. Gastrointestinal: Negative for abdominal pain, vomiting or diarrhea. Genitourinary: Negative for dysuria. Musculoskeletal: Negative for back pain. Skin: Negative for rash. Neurological: Negative for headaches, weakness or numbness. 10 point ROS negative except as marked above and in HPI. Physical Exam - Vital signs Vitals: Resp 32 H 03/12/19 06:03 - Notes Notes: PHYSICAL EXAMINATION: Physical Exam: General: Well-nourished well-developed 48-year-old woman in moderate distress secondary to shortness of breath HEENT: NC/AT, pupils equal round and reactive to light, MM moist,nares clear, oropharynx clear Neck: supple, no adenopathy, no masses. Lungs: Bilateral inspiratory expiratory wheezes with use of accessory muscles of respiration CVS: Tachycardic rate and rhythm no murmur gallop or rub Abdomen: Soft active nontender, no masses, no hepatosplenomegaly Ext: No edema clubbing or cyanosis. Neuro: Alert and responsive, moving all 4 extremities on command, cranial nerves intact. Skin: Intact no open lesions, no rash Course - Re-evaluation Re-evalutation: 03/12/19 10:18 Patient is doing much better, was able to be taken off of the BiPAP and maintai alejandra on 4 L hours nasal cannula. 03/12/19 10:47 I have discussed the patient with the hospitalist, Dr. Ceron, he will admit the patient to the hospital for further evaluation and treatment. I explained to the patient that she will need to come into the hospital for further treatment and she is agreeable with that plan. - Vital Signs Vital signs: Temp Pulse Resp BP Pulse Ox 98.4 F 114 H 18 124/86 H 99 03/12/19 06:11 03/12/19 06:11 03/12/19 08:00 03/12/19 08:00 03/12/19 08:00 - Laboratory Result Diagrams: 03/12/19 06:55 03/12/19 06:55 Laboratory results interpreted by me: 03/12/19 03/12/19 03/12/19 06:20 06:55 06:55 RBC 3.16 L Hgb 10.8 L Hct 31.1 L MCV 98 H MCH 34.0 H RDW 14.2 H Lymph % (Auto) 47.7 H ABG pO2 69.6 L Glucose 149 H AST 53 H Urine Protein 03/12/19 09:14 RBC Hgb Hct MCV MCH RDW Lymph % (Auto) ABG pO2 Glucose AST Urine Protein 30 H 03/12/19 10:26 I have reviewed laboratory data and used this information for the treatment decisions regarding the patient. - Diagnostic Test Radiology reviewed: Image reviewed, Reports reviewed - Chest x-ray: Bilateral patchy opacities, pneumonic process. - EKG Interpretation by Me Rate: Tachycardia - Rate of 107, borderline T abnormalities in inferior leads otherwise no ST or T wave abnormalities noted. Critical Care Note - Critical Care Note Total time excluding time spent on procedures (mins): 60 - Critical care time spent obtaining history from patient or surrogate, discussions with consultants, development of treatment plan with patient or surrogate, evaluation of patient's response to treatment, examination of patient, ordering and performing treatments and interventions, ordering and review of laboratory studies, re- evaluation of patient's condition, ordering and review of radiographic studies and review of old charts Discharge - Discharge Clinical Impression: Hypoxia, Alcohol abuse, Morbid obesity with BMI of 40.0-44.9, adult COPD (chronic obstructive pulmonary disease) Qualifiers: COPD type: unspecified COPD Qualified Code(s): J44.9 - Chronic obstructive pulmonary disease, unspecified Pneumonia Qualifiers: Pneumonia type: due to unspecified organism Laterality: bilateral Lung location: lower lobe of lung Qualified Code(s): J18.9 - Pneumonia, unspecified organism Condition: Fair Disposition: ADMITTED INPATIENT Admitting Provider: Juan (Hospitalist) - A bed in a telemetry bed or I am your regular floor thank you Unit Admitted: Medical Floor Referrals: BERNIE SAVAGE MD [Primary Care Provider] - Follow up as needed
[2019-03-12] MEDS ORDERED: CEFTRIAXONE INJ 1000 MG VIAL IV ONE (10:38)
[2019-03-12 11:21] LABS: URINE AMPHETAMINES SCREEN NEGATIVE; URINE BARBITURATES SCREEN NEGATIVE; URINE COCAINE SCREEN NEGATIVE; URINE MARIJUANA (THC) SCREEN NEGATIVE; URINE METHADONE SCREEN NEGATIVE; URINE PHENCYCLIDINE SCREEN NEGATIVE
[2019-03-12 11:22] LABS: URINE BENZODIAZEPINES SCREEN UNCONFIRMED POSITIVE
[2019-03-12] MEDS ORDERED: ALBUTEROL SULFATE 0.083% NEB 2.5 MG/3 ML AMPUL NEB PRN (11:49)
[2019-03-12] MEDS: AZITHROMYCIN INJ 500 MG VIAL IV ONE ×2 (12:35→14:40)
[2019-03-12] MEDS: IPRATROPIUM/ALBUTEROL 0.5-2.5 MG/3 ML AMPUL NEB SCH ×3 (13:33→20:12)
[2019-03-12] MEDS ORDERED: LORAZEPAM 1 MG TABLET PO PRN (15:23)
[2019-03-12] MEDS ORDERED: LORAZEPAM INJ 2 MG/1 ML VIAL IV PRN (15:23)
--- NOTE | 2019-03-12 15:33 | PDOC H&P ---
History of Present Illness Admission Date/PCP: 03/12/19 10:50 BERNIE SAVAGE MD Patient complains of: Shortness of breath History of Present Illness: FABIANA HEAD is a 48 year old female with a past medical history of severe alcoholism, alcohol withdrawal seizures, paroxysmal atrial fibrillation on anticoagulation. Hypomagnesemia, hypokalemia, depression, hypertension and morbid obesity. She presents with shortness of breath, started acutely this morning. She denies cough or fever or wheezing. She is a heavy drinker and last drink was yesterday. She was actually hospitalized here last week for hypotension and alcoholism. Work-up in the ER shows possible bilateral patchy lower lobe opacities but the patient is afebrile and her white count is normal. She is tachypneic and tachycardic and appears in distress. She was put on BiPAP in the emergency room. Her PCO2 is 37. Past Medical History Cardiac Medical History: Reports: Atrial Fibrillation, Myocardial Infarction - at 22 y/o effedrine induced, Hyperlipidema, Hypertension Denies: Congestive Heart Failure, Coronary Artery Disease, Peripheral Vascu lar Disease, Pulmonary Embolism, Heart Murmur Pulmonary Medical History: Reports: Asthma, Chronic Obstructive Pulmonary Disease (COPD) Denies: Bronchitis, Pneumonia, Respiratory Failure, Sleep Apnea, Tuberculosis Neurological Medical History: Reports: Seizures - With alcohol withdrawal Denies: Migraine Endocrine Medical History: Reports: Hypothyroidism Denies: Diabetes Mellitus Type 1, Diabetes Mellitus Type 2, Hyperthyroidism Renal/ Medical History: Denies: End Stage Renal Disease GI Medical History: Reports: Gastroesophageal Reflux Disease Denies: Cirrhosis, Crohn's Disease, Hepatitis, Hiatal Hernia, Ulcerative Colitis Musculoskeltal Medical History: Denies: Arthritis, Fibromyalgia Skin Medical History: Denies: Eczema, Psoriasis Psychiatric Medical History: Reports: Bipolar Disorder, Depression Hematology: Denies: Anemia, Hemophilia, Bleeding Tendencies, Heparin Induced Thrombocytopenia Past Surgical History Past Surgical History: Reports: Appendectomy, Cholecystectomy, Orthopedic Surgery - right knee, Tonsillectomy, Tubal Ligation Denies: Amputation, Section, Hysterectomy, Mastectomy Social History Smoking Status: Never Smoker Frequency of Alcohol Use: Heavy Hx Recreational Drug Use: No Drugs: None Hx Prescription Drug Abuse: No - Advance Directive Resuscitation Status: Full Code Family History Family History: Malignancy Parental Family History Reviewed: Yes Children Family History Reviewed: Yes Sibling(s) Family History Reviewed.: Yes Medication/Allergy Home Medications: Albuterol Sulfate [Proair HFA Inhalation Aerosol 8.5 gm MDI] 2 puff IH Q4HP PRN 01/15/19 Hydrochlorothiazide [Hydrodiuril 25 mg Tablet] 25 mg PO DAILY 01/15/19 Levothyroxine Sodium 88 mcg PO Q6AM 01/15/19 Lisinopril [Prinivil 10 mg Tablet] 10 mg PO DAILY 01/15/19 Magnesium Oxide [Mag-Ox 400 mg Tablet] 400 mg PO DAILY 01/15/19 Potassium Chloride [K-Tab ER] 20 meq PO BID 01/15/19 Fluticasone Propion/Salmeterol [Wixela 250-50 Inhub] 1 each IH Q12 02/22/19 Apixaban [Eliquis 5 mg Tablet] 5 mg PO BID #30 tablet 02/26/19 Atorvastatin Calcium [Lipitor 20 mg Tablet] 20 mg PO QHS #15 tablet 02/26/19 Folic Acid 1 mg PO DAILY 03/01/19 Omeprazole 20 mg PO BID 03/01/19 Thiamine HCl [Vitamin B-1] 250 mg PO DAILY 03/01/19 Venlafaxine HCl ER [Effexor Xr 37.5 mg Cap.sr] 37.5 mg PO QHS 03/01/19 Gabapentin [Neurontin 300 mg Capsule] 300 mg PO BID #6 capsule 03/06/19 Clonidine HCl [Catapres 0.1 mg Tablet] 0.1 mg PO Q12 03/12/19 Diltiazem HCl [Diltiazem ER] 240 mg PO DAILY 03/12/19 Ibuprofen [Motrin 600 mg Tablet] 600 mg PO TID 03/12/19 Metoprolol Succinate [Toprol Xl 25 mg Tab.sr] 25 mg PO DAILY 03/12/19 Allergies/Adverse Reactions: No Known Allergies Allergy (Verified 03/12/19 12:10) Review of Systems All systems: reviewed and no additional remarkable complaints except as stated Physical Exam Vital Signs: Temp Pulse Resp BP Pulse Ox 98.2 F 110 H 39 H 141/102 H 100 03/12/19 13:11 03/12/19 13:11 03/12/19 13:11 03/12/19 13:11 03/12/19 13:11 Intake & Output 03/11/19 03/12/19 03/13/19 06:59 06:59 06:59 Weight 220 lb Exam: Patient is acute respiratory distress Alert oriented to time place person No anxiety or depression Head: atraumatic normocephalic Pupils: are equal reactive Neck: is supple and trachea is central no lymphadenopathy No pharyngeal erythema or exudates Heart: Tachycardia, no murmurs, no peripheral edema Lungs: Clear to auscultation bilaterally, tachypnea Abdomen: nontender nondistended Neurological exam: unremarkable Musculoskeletal: No joint swelling or effusion chronic lower back pain and tenderness No suicidal or homicidal ideation Results Laboratory Results: 03/12/19 06:55 03/12/19 06:55 03/12/19 03/12/19 03/12/19 06:20 06:55 06:55 WBC 8.1 RBC 3.16 L Hgb 10.8 L Hct 31.1 L MCV 98 H MCH 34.0 H MCHC 34.6 RDW 14.2 H Plt Count 438 Seg Neutrophils % 44.0 Carbonic Acid 1.14 HCO3/H2CO3 Ratio 20:1 ABG pH 7.40 ABG pCO2 37.8 ABG pO2 69.6 L ABG HCO3 23.0 ABG O2 Saturation 94.1 ABG Base Excess -1.4 FiO2 2L Sodium 144.7 Potassium 4.4 Chloride 104 Carbon Dioxide 28 Anion Gap 13 BUN 15 Creatinine 0.89 Est GFR ( Amer) > 60 Glucose 149 H Calcium 9.0 Total Bilirubin 0.3 AST 53 H Alkaline Phosphatase 97 Total Protein 7.6 Albumin 4.0 Urine Color Urine Appearance Urine pH Ur Specific [place] Urine Protein Urine Glucose (UA) Urine Ketones Urine Blood Urine Nitrite Ur Leukocyte Esterase Urine WBC (Auto) 03/12/19 09:14 WBC RBC Hgb Hct MCV MCH MCHC RDW Plt Count Seg Neutrophils % Carbonic Acid HCO3/H2CO3 Ratio ABG pH ABG pCO2 ABG pO2 ABG HCO3 ABG O2 Saturation ABG Base Excess FiO2 Sodium Potassium Chloride Carbon Dioxide Anion Gap BUN Creatinine Est GFR ( Amer) Glucose Calcium Total Bilirubin AST Alkaline Phosphatase Total Protein Albumin Urine Color YELLOW Urine Appearance CLEAR Urine pH 6.0 Ur Specific [place] 1.014 Urine Protein 30 H Urine Glucose (UA) NEGATIVE Urine Ketones NEGATIVE Urine Blood NEGATIVE Urine Nitrite NEGATIVE Ur Leukocyte Esterase NEGATIVE Urine WBC (Auto) 1 03/12/19 03/12/19 06:55 06:55 Creatine Kinase 81 CK-MB (CK-2) 1.10 Troponin I 0.019 Impressions: Chest X-Ray 03/12/19 06:17 IMPRESSION: 1. Patchy bibasilar opacities may represent bilateral pneumonic process. Continued radiographic follow-up to resolution recommended. Assessment and Plan - Diagnosis (1) Hypoxia Is this a current diagnosis for this admission?: Yes Plan: Questionable patchy lower lobe opacities bilaterally. Start empiric antibiotics. Check CT angiogram to rule out PE. (2) Hypothyroidism Qualifiers: Hypothyroidism type: acquired Qualified Code(s): E03.9 - Hypothyroidism, unspecified Is this a current diagnosis for this admission?: Yes Plan: Continue levothyroxine (3) Obesity Qualifiers: Obesity type: unspecified obesity type Obesity classification: unspecified obesity classification Is this a current diagnosis for this admission?: Yes Plan: Recommend lifestyle modifications (4) Paroxysmal A-fib Is this a current diagnosis for this admission?: Yes Plan: Currently in sinus tachycardia. Continue Eliquis and Cardizem (5) Tachycardia Is this a current diagnosis for this admission?: Yes Plan: Monitor on telemetry (6) Alcohol abuse Is this a current diagnosis for this admission?: Yes Plan: Ativan as needed. Thiamine folic acid supplements. Monitor for withdrawal symptoms.
[2019-03-12 16:53] LABS: ANION GAP 17 (5-19); BLOOD UREA NITROGEN 13 mg/dL (7-20); CALCIUM 9.1 mg/dL (8.4-10.2); CARBON DIOXIDE 20 mmol/L (22-30); CHLORIDE 99 mmol/L (98-107); GLUCOSE 294 mg/dL (75-110); POTASSIUM 4.3 mmol/L (3.6-5.0)
[2019-03-12] MEDS: GABAPENTIN 300 MG CAPSULE PO SCH (17:16)
[2019-03-12] MEDS: PANTOPRAZOLE SODIUM 20 MG TABLET.DR PO SCH (17:16)
[2019-03-12] MEDS: POTASSIUM CHLORIDE 10 MEQ TABLET.ER PO SCH (17:19)
[2019-03-12] MEDS ORDERED: DILTIAZEM HCL INJ 25 MG/5 ML VIAL ONE (17:31)
[2019-03-12] MEDS ORDERED: DILTIAZEM HCL/D5W 125 MG/125 ML RTUINJ IV ONE (17:41)
[2019-03-12] MEDS: DILTIAZEM HCL/D5W 125 MG/125 ML RTUINJ IV PRN ×2 (17:46→18:00)
--- NOTE | 2019-03-12 17:46 | EKG REPORT ---
SEVERITY:- ABNORMAL ECG - ATRIAL FIBRILLATION WITH RAPID V-RATE REPOLARIZATION ABNORMALITY, PROB RATE RELATED : Confirmed by: Marco Somers MD 12-Mar-2019 17:45:01
[2019-03-12] MEDS ORDERED: METOPROLOL TARTRATE PF/INJ 5 MG/5 ML SDV IV ONE ×2 (17:47→20:30)
[2019-03-12 17:54] LABS: ARTERIAL BLOOD BASE EXCESS -3.8 mmol/L; ARTERIAL BLOOD H2CO3 0.85 mmol/L (1.05-1.35); ARTERIAL BLOOD O2 SATURATION 99.5 % (94-98); ARTERIAL BLOOD PCO2 28.1 mmHg (35-45); ARTERIAL BLOOD PH 7.45 (7.35-7.45); ARTERIAL BLOOD PO2 221.3 mmHg (80-100); ARTERIAL BLOOD TOTAL CO2 19.9 mmol/L (21-25)
[2019-03-12] MEDS ORDERED: APIXABAN 5 MG TABLET PO SCH (18:00)
[2019-03-12] MEDS ORDERED: (PENDING PHARMACY ID) (Potassium Chloride [K-Tab Er] 20 MEQ) PO SCH (18:00)
[2019-03-12 18:03] LABS: ARTERIAL BLOOD FIO2 45%
[2019-03-12] MEDS ORDERED: HEPARIN SOD (PORCINE) 1,000 UNIT/ML 10 ML VIAL IV ONE (18:29)
[2019-03-12] MEDS ORDERED: HEPARIN SODIUM,PORCINE/D5W 25,000 UNIT/250 ML RTUINJ IV PRN (18:29)
[2019-03-12 19:35] LABS: INTERNATIONAL RATION (INR) 1.03; PROTHROMBIN TIME 13.5 SEC (11.4-15.4)
[2019-03-12 19:36] LABS: PARTIAL THROMBOPLASTIN TIME 26.3 SEC (23.5-35.8)
[2019-03-12 20:09] LABS: APPEARANCE,URINE CLEAR; BILIRUBIN,URINE NEGATIVE (NEGATIVE); COLOR,URINE STRAW; GLUCOSE, URINE >=500 mg/dL (NEGATIVE); KETONES,URINE NEGATIVE (NEGATIVE); LEUKOCYTE ESTERASE,URINE NEGATIVE (NEGATIVE); NITRITE,URINE NEGATIVE (NEGATIVE); PROTEIN,URINE 100 mg/dL (NEGATIVE); URINE SPECIFIC GRAVITY 1.008; UROBILINOGEN,URINE NEGATIVE mg/dL (<2.0)
[2019-03-12] MEDS ORDERED: DILTIAZEM HCL INJ 25 MG/5 ML VIAL IV ONE (20:30)
[2019-03-12] MEDS ORDERED: LORAZEPAM INJ 2 MG/1 ML VIAL IV ONE (20:30)
[2019-03-12] MEDS: IBUPROFEN 600 MG TABLET PO SCH (21:17)
[2019-03-12] MEDS: ATORVASTATIN CALCIUM 20 MG TABLET PO SCH (21:17)
[2019-03-12] MEDS: CLONIDINE HCL 0.1 MG TABLET PO SCH (21:18)
[2019-03-12] MEDS: VENLAFAXINE HCL 37.5 MG CAP.SR.24H PO SCH (21:18)
[2019-03-12] MEDS ORDERED: HEPARIN SOD (PORCINE) 1,000 UNIT/ML 10 ML VIAL IV PRN (21:29)
[2019-03-12] MEDS ORDERED: FLUTICASONE PROPION IH SCH (22:00)
[2019-03-12] MEDS ORDERED: SALMETEROL IH SCH (22:00)
[2019-03-12 22:02] LABS: HEMATOCRIT 31.9 % (36.0-47.0); HEMOGLOBIN 10.8 g/dL (12.0-15.5); MEAN CORPUSCULAR HEMOGLOBIN 32.6 pg (27.0-33.4); MEAN CORPUSCULAR HGB CONC 33.8 g/dL (32.0-36.0); MEAN CORPUSCULAR VOLUME 96 fl (80-97); PLATELET COUNT 440 10^3/uL (150-450); RED CELL DISTRIBUTION WIDTH 14.1 % (11.5-14.0); WHITE BLOOD COUNT 12.8 10^3/uL (4.0-10.5)
[2019-03-12] MEDS ORDERED: DIAZEPAM INJ 10 MG/2 ML DISP.SYRIN IV PRN (22:55)
[2019-03-12] MEDS ORDERED: DIAZEPAM INJ 10 MG/2 ML DISP.SYRIN IV ONE (23:00)
[2019-03-12] MEDS ORDERED: DILTIAZEM HCL 240 MG CAPSULE.CR PO ONE (23:00)
[2019-03-12 23:02] LABS: ABSOLUTE MONOCYTES # (MANUAL) 0.1 10^3/uL (0.1-1.4); ANISOCYTOSIS SLIGHT; BAND NEUTROPHILS % (MANUAL) 1 % (3-5); BASOPHILS % (MANUAL) 0 % (0-2); EOSINOPHILS % (MANUAL) 0 % (0-6); LYMPHOCYTES % (MANUAL) 16 % (13-45); MONOCYTES % (MANUAL) 1 % (3-13); SEGMENTED NEUTROPHILS % (MAN) 82 % (42-78); TOTAL CELLS COUNTED 100
[2019-03-12 23:03] LABS: PLATELET COMMENT ADEQUATE
[2019-03-13] MEDS ORDERED: DIAZEPAM INJ 10 MG/2 ML DISP.SYRIN IV PRN (00:02)
--- NOTE | 2019-03-13 00:40 | RADIOLOGY REPORT (SQ) ---
CT ANGIOGRAM CHEST WITH IV CONTRAST: 03/12/2019 11:36 PM [employer] HISTORY: 48-year old patient with respiratory failure. TECHNIQUE: Postcontrast CT through the chest was performed per protocol for CT angiography. 3D Multiplanar reformations were performed at the workstation. Reconstructed sagittal and coronal images were also obtained through the chest. This exam was performed according to our departmental dose-optimization program, which includes automated exposure control, adjustment of the mA and/or KV according to the patient's size and/or use of iterative reconstruction technique. COMPARISON: None available FINDINGS: The heart size is enlarged. No significant mediastinal, supraclavicular, or axillary lymphadenopathy is seen. The thoracic aorta is within normal limits of size. No filling defects are seen within the pulmonary arteries to suggest a pulmonary artery embolism. The main pulmonary artery is within normal limits of size. The thyroid gland is unremarkable. The central tracheobronchial tree is patent. There are bibasilar airspace opacities, right greater than left. There is a small hiatal hernia present. The distal esophagus is mildly thickened. There is no evidence of pleural effusions or a pneumothorax. The bones demonstrate no suspicious lytic or blastic lesion. There are a few remote left-sided rib fractures present. The gallbladder is surgically absent. IMPRESSION: There are bibasilar airspace opacities which may reflect atelectasis or infection. No filling defect is seen to suggest a pulmonary artery embolism. There is a small hiatal hernia with thickening of the distal esophagus. This could be due to esophagitis. An underlying mass is not fully excluded. Interval follow-up is recommended.
[2019-03-13] MEDS: DIAZEPAM 5 MG TABLET PO SCH ×3 (02:19→10:46)
[2019-03-13 04:37] LABS: HEMATOCRIT 30.8 % (36.0-47.0); HEMOGLOBIN 10.5 g/dL (12.0-15.5); MEAN CORPUSCULAR HEMOGLOBIN 33.3 pg (27.0-33.4); MEAN CORPUSCULAR HGB CONC 34.3 g/dL (32.0-36.0); MEAN CORPUSCULAR VOLUME 97 fl (80-97); PLATELET COUNT 404 10^3/uL (150-450); RED BLOOD COUNT 3.17 10^6/uL (3.72-5.28); RED CELL DISTRIBUTION WIDTH 14.2 % (11.5-14.0); WHITE BLOOD COUNT 15.5 10^3/uL (4.0-10.5)
[2019-03-13] MEDS: LEVOTHYROXINE SODIUM 0.088 MG TABLET PO SCH (05:58)
[2019-03-13] MEDS: GABAPENTIN 300 MG CAPSULE PO SCH ×2 (05:58→17:17)
[2019-03-13] MEDS: IBUPROFEN 600 MG TABLET PO SCH ×3 (05:58→21:32)
[2019-03-13] MEDS: IPRATROPIUM/ALBUTEROL 0.5-2.5 MG/3 ML AMPUL NEB SCH ×4 (08:15→20:23)
[2019-03-13] MEDS ORDERED: (PENDING PHARMACY ID) (Thiamine Hcl [Vitamin B-1] 250 MG) PO SCH (10:00)
[2019-03-13] MEDS ORDERED: ENOXAPARIN SODIUM INJ 40 MG/0.4 ML DISP.SYRIN SUBCUT SCH (10:00)
[2019-03-13] MEDS ORDERED: (PENDING PHARMACY ID) (Diltiazem Hcl [Diltiazem 24hr Er] 240 MG) PO SCH (10:00)
[2019-03-13] MEDS ORDERED: AZITHROMYCIN INJ 500 MG VIAL IV SCH (10:00)
[2019-03-13] MEDS: CEFTRIAXONE 1 GM/D5W RTU 1 GM/50 ML RTUPB IV SCH (10:38)
[2019-03-13] MEDS: METOPROLOL SUCCINATE 25 MG TAB.SR.24H PO SCH (10:43)
[2019-03-13] MEDS: POTASSIUM CHLORIDE 10 MEQ TABLET.ER PO SCH ×2 (10:43→17:17)
[2019-03-13] MEDS: APIXABAN 5 MG TABLET PO SCH ×2 (10:43→17:17)
[2019-03-13] MEDS: FLUTICASONE/VILANTEROL 200-25 MCG/DOSE IH SCH (10:43)
[2019-03-13] MEDS: LISINOPRIL 10 MG TABLET PO SCH (10:44)
[2019-03-13] MEDS: MAGNESIUM OXIDE 400 MG TABLET PO SCH (10:44)
[2019-03-13] MEDS: THIAMINE HCL 100 MG TABLET PO SCH (10:44)
[2019-03-13] MEDS: PANTOPRAZOLE SODIUM 20 MG TABLET.DR PO SCH ×2 (10:44→17:17)
[2019-03-13] MEDS: FOLIC ACID 1 MG TABLET PO SCH (10:45)
[2019-03-13] MEDS: CLONIDINE HCL 0.1 MG TABLET PO SCH ×2 (10:45→21:32)
[2019-03-13] MEDS: HYDROCHLOROTHIAZIDE 25 MG TABLET PO SCH (10:45)
[2019-03-13] MEDS: DILTIAZEM HCL 240 MG CAPSULE.CR PO SCH (10:46)
[2019-03-13] MEDS ORDERED: LORAZEPAM 1 MG TABLET PO SCH ×2 (11:00→14:00)
[2019-03-13] MEDS: AZITHROMYCIN 500 MG in DEXTROSE 5%-WATER 250 ML IV SCH (11:13)
--- NOTE | 2019-03-13 13:19 | PDOC PROGRESS REPORT ---
Subjective Progress Note for:: 03/13/19 Subjective:: 03/13/2019: Patient seen and examined. She developed A. fib with RVR last night and was started on Cardizem drip. CT angiogram was negative for PE. Responded well to Ativan and Valium for alcohol withdrawal syndrome. Clinically better today. Reason For Visit: PNEUMONIA,COPD Physical Exam Vital Signs: Temp Pulse Resp BP Pulse Ox 98.5 F 92 22 H 127/71 H 95 03/13/19 12:16 03/13/19 12:16 03/13/19 12:16 03/13/19 12:16 03/13/19 12:16 Intake & Output 03/12/19 03/13/19 03/14/19 06:59 06:59 06:59 Intake Total 799 138 Output Total 1775 Balance -976 138 Weight 220 lb 227 lb 8.273 oz Exam: Patient is acute respiratory distress Alert oriented to time place person No anxiety or depression Head: atraumatic normocephalic Pupils: are equal reactive Neck: is supple and trachea is central no lymphadenopathy No pharyngeal erythema or exudates Heart: Regular rate and rhythm, no murmurs, no peripheral edema Lungs: Clear to auscultation bilaterally, tachypnea Abdomen: nontender nondistended Neurological exam: unremarkable Musculoskeletal: No joint swelling or effusion chronic lower back pain and tenderness No suicidal or homicidal ideation Results Laboratory Results: 03/13/19 03:25 03/12/19 16:06 03/12/19 03/12/19 03/12/19 16:06 17:35 19:30 WBC RBC Hgb Hct MCV MCH MCHC RDW Plt Count Seg Neutrophils % Carbonic Acid 0.85 L HCO3/H2CO3 Ratio 22:1 ABG pH 7.45 ABG pCO2 28.1 L ABG pO2 221.3 H ABG HCO3 19.0 L ABG O2 Saturation 99.5 H ABG Base Excess -3.8 FiO2 45% Sodium 136.1 L Potassium 4.3 Chloride 99 Carbon Dioxide 20 L Anion Gap 17 BUN 13 Creatinine 0.72 Est GFR ( Amer) > 60 Glucose 294 H Calcium 9.1 Urine Color STRAW Urine Appearance CLEAR Urine pH 8.0 Ur Specific [place] 1.008 Urine Protein 100 H Urine Glucose (UA) >=500 H Urine Ketones NEGATIVE Urine Blood NEGATIVE Urine Nitrite NEGATIVE Ur Leukocyte Esterase NEGATIVE Urine WBC (Auto) 0 Urine RBC (Auto) 0 03/12/19 03/13/19 21:35 03:25 WBC 12.8 H 15.5 H RBC 3.30 L 3.17 L Hgb 10.8 L 10.5 L Hct 31.9 L 30.8 L MCV 96 97 MCH 32.6 33.3 MCHC 33.8 34.3 RDW 14.1 H 14.2 H Plt Count 440 404 Seg Neutrophils % Not Reportable Carbonic Acid HCO3/H2CO3 Ratio ABG pH ABG pCO2 ABG pO2 ABG HCO3 ABG O2 Saturation ABG Base Excess FiO2 Sodium Potassium Chloride Carbon Dioxide Anion Gap BUN Creatinine Est GFR ( Amer) Glucose Calcium Urine Color Urine Appearance Urine pH Ur Specific [place] Urine Protein Urine Glucose (UA) Urine Ketones Urine Blood Urine Nitrite Ur Leukocyte Esterase Urine WBC (Auto) Urine RBC (Auto) 03/12/19 03/12/19 06:55 06:55 Creatine Kinase 81 CK-MB (CK-2) 1.10 Troponin I 0.019 Impressions: Chest/Abdomen CTA 03/12/19 00:00 IMPRESSION: There are bibasilar airspace opacities which may reflect atelectasis or infection. No filling defect is seen to suggest a pulmonary artery embolism. There is a small hiatal hernia with thickening of the distal esophagus. This could be due to esophagitis. An underlying mass is not fully excluded. Interval follow-up is recommended. Chest X-Ray 03/12/19 06:17 IMPRESSION: 1. Patchy bibasilar opacities may represent bilateral pneumonic process. Continued radiographic follow-up to resolution recommended. Assessment and Plan - Diagnosis (1) Hypoxia Is this a current diagnosis for this admission?: Yes Plan: Patchy lower lobe opacities bilaterally. Continue empiric antibiotics. CT angiogram ruled out PE. (2) Pneumonia Qualifiers: Pneumonia type: due to unspecified organism Laterality: bilateral Lung location: lower lobe of lung Qualified Code(s): J18.9 - Pneumonia, unspecified organism Is this a current diagnosis for this admission?: Yes Plan: Continue antibiotics IV Rocephin and IV azithromycin (3) Alcohol withdrawal Qualifiers: Complication of substance-induced condition: with unspecified complication Qualified Code(s): F10.239 - Alcohol dependence with withdrawal, unspecified Is this a current diagnosis for this admission?: Yes Plan: Continue IV fluids. Continue scheduled Ativan orally. Continue thiamine folic acid supplements. (4) Paroxysmal A-fib Is this a current diagnosis for this admission?: Yes Plan: A. fib with RVR. Currently resolved after starting Cardizem bolus and drip IV. Now converted to sinus rhythm. Continue Eliquis and oral Cardizem (5) Hypothyroidism Qualifiers: Hypothyroidism type: acquired Qualified Code(s): E03.9 - Hypothyroidism, unspecified Is this a current diagnosis for this admission?: Yes Plan: Continue levothyroxine (6) Obesity Qualifiers: Obesity type: unspecified obesity type Obesity classification: unspecified obesity classification Is this a current diagnosis for this admission?: Yes Plan: Recommend lifestyle modifications
[2019-03-13 13:48] LABS: ANION GAP 14 (5-19); BLOOD UREA NITROGEN 16 mg/dL (7-20); CALCIUM 9.3 mg/dL (8.4-10.2); CARBON DIOXIDE 26 mmol/L (22-30); CHLORIDE 98 mmol/L (98-107); GLUCOSE 152 mg/dL (75-110)
[2019-03-13] MEDS: LORAZEPAM 1 MG TABLET PO SCH ×3 (17:16→21:31)
[2019-03-13] MEDS: ATORVASTATIN CALCIUM 20 MG TABLET PO SCH (21:31)
[2019-03-13] MEDS: VENLAFAXINE HCL 37.5 MG CAP.SR.24H PO SCH (21:31)
[2019-03-14] MEDS: LORAZEPAM 1 MG TABLET PO SCH ×6 (02:30→22:30)
[2019-03-14 04:23] LABS: HEMATOCRIT 29.2 % (36.0-47.0); MEAN CORPUSCULAR HEMOGLOBIN 33.5 pg (27.0-33.4); MEAN CORPUSCULAR HGB CONC 34.2 g/dL (32.0-36.0); MEAN CORPUSCULAR VOLUME 98 fl (80-97); PLATELET COUNT 324 10^3/uL (150-450); RED BLOOD COUNT 2.99 10^6/uL (3.72-5.28); RED CELL DISTRIBUTION WIDTH 14.3 % (11.5-14.0); WHITE BLOOD COUNT 11.6 10^3/uL (4.0-10.5)
[2019-03-14] MEDS: IBUPROFEN 600 MG TABLET PO SCH ×3 (07:07→22:31)
[2019-03-14] MEDS: LEVOTHYROXINE SODIUM 0.088 MG TABLET PO SCH (07:07)
[2019-03-14] MEDS: GABAPENTIN 300 MG CAPSULE PO SCH ×2 (07:07→18:38)
[2019-03-14] MEDS: IPRATROPIUM/ALBUTEROL 0.5-2.5 MG/3 ML AMPUL NEB SCH ×4 (08:12→19:46)
[2019-03-14] MEDS: APIXABAN 5 MG TABLET PO SCH ×2 (10:31→18:38)
[2019-03-14] MEDS: METOPROLOL SUCCINATE 25 MG TAB.SR.24H PO SCH (10:31)
[2019-03-14] MEDS: CLONIDINE HCL 0.1 MG TABLET PO SCH ×2 (10:31→22:32)
[2019-03-14] MEDS: CEFTRIAXONE 1 GM/D5W RTU 1 GM/50 ML RTUPB IV SCH (10:31)
[2019-03-14] MEDS: POTASSIUM CHLORIDE 10 MEQ TABLET.ER PO SCH ×2 (10:31→18:39)
[2019-03-14] MEDS: DILTIAZEM HCL 240 MG CAPSULE.CR PO SCH (10:31)
[2019-03-14] MEDS: HYDROCHLOROTHIAZIDE 25 MG TABLET PO SCH (10:32)
[2019-03-14] MEDS: FOLIC ACID 1 MG TABLET PO SCH (10:32)
[2019-03-14] MEDS: MAGNESIUM OXIDE 400 MG TABLET PO SCH (10:32)
[2019-03-14] MEDS: THIAMINE HCL 100 MG TABLET PO SCH (10:32)
[2019-03-14] MEDS: PANTOPRAZOLE SODIUM 20 MG TABLET.DR PO SCH ×2 (10:32→18:38)
[2019-03-14] MEDS: LISINOPRIL 10 MG TABLET PO SCH (10:32)
[2019-03-14] MEDS: FLUTICASONE/VILANTEROL 200-25 MCG/DOSE IH SCH (10:50)
[2019-03-14] MEDS: AZITHROMYCIN 500 MG in DEXTROSE 5%-WATER 250 ML IV SCH (11:40)
[2019-03-14] MEDS: NORMAL SALINE 1000 ML 1,000 ML IV PRN (12:06)
--- NOTE | 2019-03-14 13:22 | PDOC PROGRESS REPORT ---
Subjective Progress Note for:: 03/14/19 Subjective:: 03/13/2019: Patient seen and examined. She developed A. fib with RVR last night and was started on Cardizem drip. CT angiogram was negative for PE. Responded well to Ativan and Valium for alcohol withdrawal syndrome. Clinically better today. 03/14/2019: Patient was seen and examined. Still sinus rhythm. She is improving and breathing better. She is on oxygen. She apparently drinks half a gallon of vodka every day. Treatment facility accepted her but she is declining a transfer. She is also being evicted from her house within a week or so. Apparently, she will be living with a friend on discharge. Reason For Visit: PNEUMONIA,COPD Physical Exam Vital Signs: Temp Pulse Resp BP Pulse Ox 97.4 F 70 16 105/72 98 03/14/19 12:05 03/14/19 12:09 03/14/19 12:09 03/14/19 12:05 03/14/19 12:09 Intake & Output 03/13/19 03/14/19 03/15/19 06:59 06:59 06:59 Intake Total 799 2101 50 Output Total 1775 1400 Balance -976 701 50 Weight 227 lb 8.273 oz 237 lb 3.478 oz Exam: Patient is acute respiratory distress Alert oriented to time place person No anxiety or depression Head: atraumatic normocephalic Pupils: are equal reactive Neck: is supple and trachea is central no lymphadenopathy No pharyngeal erythema or exudates Heart: Regular rate and rhythm, no murmurs, no peripheral edema Lungs: Clear to auscultation bilaterally, tachypnea Abdomen: nontender nondistended Neurological exam: unremarkable Musculoskeletal: No joint swelling or effusion chronic lower back pain and tenderness No suicidal or homicidal ideation Results Laboratory Results: 03/14/19 03:52 03/13/19 03:25 03/13/19 03/14/19 03:25 03:52 WBC 11.6 H RBC 2.99 L Hgb 10.0 L Hct 29.2 L MCV 98 H MCH 33.5 H MCHC 34.2 RDW 14.3 H Plt Count 324 Sodium 138.4 Potassium 4.0 Chloride 98 Carbon Dioxide 26 Anion Gap 14 BUN 16 Creatinine 0.86 Est GFR ( Amer) > 60 Glucose 152 H Calcium 9.3 03/12/19 03/12/19 06:55 06:55 Creatine Kinase 81 CK-MB (CK-2) 1.10 Troponin I 0.019 Impressions: Chest/Abdomen CTA 03/12/19 00:00 IMPRESSION: There are bibasilar airspace opacities which may reflect atelectasis or infection. No filling defect is seen to suggest a pulmonary artery embolism. There is a small hiatal hernia with thickening of the distal esophagus. This could be due to esophagitis. An underlying mass is not fully excluded. Interval follow-up is recommended. Chest X-Ray 03/12/19 06:17 IMPRESSION: 1. Patchy bibasilar opacities may represent bilateral pneumonic process. Continued radiographic follow-up to resolution recommended. Assessment and Plan - Diagnosis (1) Hypoxia Is this a current diagnosis for this admission?: Yes Plan: Patchy lower lobe opacities bilaterally. Continue empiric antibiotics. CT angiogram ruled out PE. (2) Pneumonia Qualifiers: Pneumonia type: due to unspecified organism Laterality: bilateral Lung location: lower lobe of lung Qualified Code(s): J18.9 - Pneumonia, unspecified organism Is this a current diagnosis for this admission?: Yes Plan: Continue antibiotics IV Rocephin and IV azithromycin (3) Alcohol withdrawal Qualifiers: Complication of substance-induced condition: with unspecified complication Qualified Code(s): F10.239 - Alcohol dependence with withdrawal, unspecified Is this a current diagnosis for this admission?: Yes Plan: Continue IV fluids. Continue scheduled Ativan orally decrease the dose to 1 mg every 4 hours instead of 2 mg. Continue thiamine folic acid supplements. (4) Paroxysmal A-fib Is this a current diagnosis for this admission?: Yes Plan: A. fib with RVR. Currently resolved after starting Cardizem bolus and drip IV. Now converted to sinus rhythm. Continue Eliquis and oral Cardizem (5) Hypothyroidism Qualifiers: Hypothyroidism type: acquired Qualified Code(s): E03.9 - Hypothyroidism, unspecified Is this a current diagnosis for this admission?: Yes Plan: Continue levothyroxine (6) Obesity Qualifiers: Obesity type: unspecified obesity type Obesity classification: unspecified obesity classification Is this a current diagnosis for this admission?: Yes Plan: Recommend lifestyle modifications
[2019-03-14 13:46] LABS: ANION GAP 9 (5-19); BLOOD UREA NITROGEN 18 mg/dL (7-20); CALCIUM 8.5 mg/dL (8.4-10.2); CARBON DIOXIDE 25 mmol/L (22-30); CHLORIDE 102 mmol/L (98-107); GLUCOSE 96 mg/dL (75-110); POTASSIUM 4.3 mmol/L (3.6-5.0)
--- NOTE | 2019-03-14 15:54 | XCELERA REPORT ---
[address] [address] Transthoracic Echocardiogram Report Name: FABIANA HEAD Age: 48 yrs Gender: Female : 1970 Patient Status: Inpatient Patient Location: [facility]^A Study Date: 03/12/2019 07:38 PM Height: 61 in Weight: 220 lb BSA: 2.0 m2 Reason For Study: tachycardia Ordering Physician: KARL SHAH Performed By: Carissa Sanchez Interpretation Summary Technically poor study, no convincing apical 2 chamber view,. unable to assess biplane LVEF (not done). Small post peric effusion. No aortic root dilatation Mild nonstenotic calcific aortic sclerosis with no AR. Mild MAC, no MS, no MVP, No MR and LA enlarged by M-Mode 52 mm, but no LAURENCE calculated by testing and regulating technician. Mild LVH martita post wall. Incomplete LV segmental analysis, see pictorals. LVEF visually normal 65% with no LV diastolic dysfunction, no LV enlargement. RV normal contraction. No TR seen and no RVSP derived to assess if pulm hypertension, RA is probably borderline enlarged. Trace HI. MMode/2D Measurements & Calculations RVDd: 1.9 cm LVIDd: 4.4 cm FS: 32.4 % Ao root diam: 2.6 cm IVSd: 0.93 cm LVIDs: 2.9 cm EDV(Teich): 85.7 ml LVPWd: 1.0 cm ESV(Teich): 33.5 ml Ao root area: 5.4 cm2 LA dimension: 3.5 cm EF(Teich): 60.9 % Doppler Measurements & Calculations MV E max soco: MV P1/2t max soco: Ao V2 max: LV V1 max P.1 cm/sec 126.2 cm/sec 172.4 cm/sec 5.3 mmHg MV A max soco: MV P1/2t: 58.6 msec Ao max PG: LV V1 max: 103.7 cm/sec MVA(P1/2t): 3.8 cm2 11.9 mmHg 115.5 cm/sec MV E/A: 1.1 MV dec slope: 630.8 cm/sec2 MV dec time: 0.20 sec PA V2 max: PI end-d soco: MV P1/2t-pr_phl: 141.2 cm/sec 86.9 cm/sec 58.6 msec PA max P.0 mmHg I WMSI = 1.00 % Normal = 100 Segments Size X - Cannot 2 - 4 - 1-2 small Interpret 1 - Normal Hypokinetic 3 - AkineticDyskinetic 3-5 moderate 5 - 6-14 large Aneurysmal 15-16 diffuse : KARL SHAH Andre
[2019-03-14] MEDS ORDERED: MAGNESIUM SULFATE 4 GM/D5W 100 ML IV ONE (16:30)
[2019-03-14] MEDS: ATORVASTATIN CALCIUM 20 MG TABLET PO SCH (22:30)
[2019-03-14] MEDS: VENLAFAXINE HCL 37.5 MG CAP.SR.24H PO SCH (22:32)
[2019-03-15] MEDS: LORAZEPAM 1 MG TABLET PO SCH ×5 (02:38→23:47)
[2019-03-15 05:16] LABS: HEMOGLOBIN 10.5 g/dL (12.0-15.5); MEAN CORPUSCULAR HEMOGLOBIN 33.1 pg (27.0-33.4); MEAN CORPUSCULAR HGB CONC 33.8 g/dL (32.0-36.0); MEAN CORPUSCULAR VOLUME 98 fl (80-97); PLATELET COUNT 345 10^3/uL (150-450); RED BLOOD COUNT 3.16 10^6/uL (3.72-5.28); RED CELL DISTRIBUTION WIDTH 14.4 % (11.5-14.0); WHITE BLOOD COUNT 12.8 10^3/uL (4.0-10.5)
[2019-03-15] MEDS: LEVOTHYROXINE SODIUM 0.088 MG TABLET PO SCH (05:40)
[2019-03-15] MEDS: GABAPENTIN 300 MG CAPSULE PO SCH ×2 (05:41→17:31)
[2019-03-15 06:55] LABS: APPEARANCE,URINE CLEAR; BILIRUBIN,URINE NEGATIVE (NEGATIVE); COLOR,URINE STRAW; GLUCOSE, URINE NEGATIVE (NEGATIVE); KETONES,URINE NEGATIVE (NEGATIVE); LEUKOCYTE ESTERASE,URINE NEGATIVE (NEGATIVE); NITRITE,URINE NEGATIVE (NEGATIVE); PROTEIN,URINE NEGATIVE (NEGATIVE); URINE SPECIFIC GRAVITY 1.006; UROBILINOGEN,URINE NEGATIVE mg/dL (<2.0)
[2019-03-15] MEDS: IBUPROFEN 600 MG TABLET PO SCH ×3 (07:56→21:21)
[2019-03-15] MEDS: IPRATROPIUM/ALBUTEROL 0.5-2.5 MG/3 ML AMPUL NEB SCH ×4 (08:09→19:40)
[2019-03-15] MEDS ORDERED: MAGNESIUM SULFATE 4 GM/100 ML RTUPB IV ONE (09:30)
[2019-03-15] MEDS: THIAMINE HCL 100 MG TABLET PO SCH (09:48)
[2019-03-15] MEDS: METOPROLOL SUCCINATE 25 MG TAB.SR.24H PO SCH (09:49)
[2019-03-15] MEDS: FOLIC ACID 1 MG TABLET PO SCH (09:49)
[2019-03-15] MEDS: MAGNESIUM OXIDE 400 MG TABLET PO SCH (09:49)
[2019-03-15] MEDS: POTASSIUM CHLORIDE 10 MEQ TABLET.ER PO SCH ×2 (09:49→17:32)
[2019-03-15] MEDS: APIXABAN 5 MG TABLET PO SCH ×2 (09:50→17:31)
[2019-03-15] MEDS: PANTOPRAZOLE SODIUM 20 MG TABLET.DR PO SCH ×2 (09:50→17:32)
[2019-03-15] MEDS: CLONIDINE HCL 0.1 MG TABLET PO SCH ×2 (09:50→21:18)
[2019-03-15] MEDS: HYDROCHLOROTHIAZIDE 25 MG TABLET PO SCH (09:50)
[2019-03-15] MEDS: LISINOPRIL 10 MG TABLET PO SCH (09:50)
[2019-03-15] MEDS: DILTIAZEM HCL 240 MG CAPSULE.CR PO SCH (09:50)
[2019-03-15] MEDS: CEFTRIAXONE 1 GM/D5W RTU 1 GM/50 ML RTUPB IV SCH (09:50)
[2019-03-15] MEDS: FLUTICASONE/VILANTEROL 200-25 MCG/DOSE IH SCH (09:51)
[2019-03-15 09:55] LABS: ANION GAP 10 (5-19); BLOOD UREA NITROGEN 17 mg/dL (7-20); CALCIUM 8.5 mg/dL (8.4-10.2); CARBON DIOXIDE 23 mmol/L (22-30); CHLORIDE 103 mmol/L (98-107); GLUCOSE 101 mg/dL (75-110); POTASSIUM 4.5 mmol/L (3.6-5.0)
[2019-03-15] MEDS: AZITHROMYCIN 500 MG in DEXTROSE 5%-WATER 250 ML IV SCH (10:43)
[2019-03-15] MEDS ORDERED: LORAZEPAM 1 MG TABLET PO PRN (12:05)
--- NOTE | 2019-03-15 12:09 | PDOC PROGRESS REPORT ---
Subjective Progress Note for:: 03/15/19 Subjective:: 03/13/2019: Patient seen and examined. She developed A. fib with RVR last night and was started on Cardizem drip. CT angiogram was negative for PE. Responded well to Ativan and Valium for alcohol withdrawal syndrome. Clinically better today. 03/14/2019: Patient was seen and examined. Still sinus rhythm. She is improving and breathing better. She is on oxygen. She apparently drinks half a gallon of vodka every day. Treatment facility accepted her but she is declining a transfer. She is also being evicted from her house within a week or so. Apparently, she will be living with a friend on discharge. 03/15/2019: Patient was seen and examined. She is more stable feeling better every day. We decreased Ativan to 1 mg every 4 scheduled yesterday. She still on nasal cannula oxygen. Reason For Visit: PNEUMONIA,COPD Physical Exam Vital Signs: Temp Pulse Resp BP Pulse Ox 99.0 F 70 16 139/79 H 96 03/15/19 08:02 03/15/19 08:10 03/15/19 08:10 03/15/19 08:02 03/15/19 08:10 Intake & Output 03/14/19 03/15/19 03/16/19 06:59 06:59 06:59 Intake Total 2101 3260 Output Total 1400 3225 Balance 701 35 Weight 237 lb 3.478 oz 238 lb 1.588 oz Exam: Patient is acute respiratory distress Alert oriented to time place person No anxiety or depression Head: atraumatic normocephalic Pupils: are equal reactive Neck: is supple and trachea is central no lymphadenopathy No pharyngeal erythema or exudates Heart: Regular rate and rhythm, no murmurs, no peripheral edema Lungs: Clear to auscultation bilaterally, tachypnea Abdomen: nontender nondistended Neurological exam: unremarkable Musculoskeletal: No joint swelling or effusion chronic lower back pain and tenderness No suicidal or homicidal ideation Results Laboratory Results: 03/15/19 04:13 03/15/19 04:13 03/14/19 03/15/19 03/15/19 03:52 04:13 04:13 WBC 12.8 H RBC 3.16 L Hgb 10.5 L Hct 31.0 L MCV 98 H MCH 33.1 MCHC 33.8 RDW 14.4 H Plt Count 345 Sodium 136.3 L Potassium 4.3 Chloride 102 Carbon Dioxide 25 Anion Gap 9 BUN 18 Creatinine 1.03 Est GFR ( Amer) > 60 Glucose 96 Calcium 8.5 Magnesium 1.2 L* 2.1 Urine Color Urine Appearance Urine pH Ur Specific [place] Urine Protein Urine Glucose (UA) Urine Ketones Urine Blood Urine Nitrite Ur Leukocyte Esterase Urine WBC (Auto) Urine RBC (Auto) 03/15/19 03/15/19 04:13 06:00 WBC RBC Hgb Hct MCV MCH MCHC RDW Plt Count Sodium 135.8 L Potassium 4.5 Chloride 103 Carbon Dioxide 23 Anion Gap 10 BUN 17 Creatinine 1.04 Est GFR ( Amer) > 60 Glucose 101 Calcium 8.5 Magnesium Urine Color STRAW Urine Appearance CLEAR Urine pH 6.0 Ur Specific [place] 1.006 Urine Protein NEGATIVE Urine Glucose (UA) NEGATIVE Urine Ketones NEGATIVE Urine Blood NEGATIVE Urine Nitrite NEGATIVE Ur Leukocyte Esterase NEGATIVE Urine WBC (Auto) 1 Urine RBC (Auto) 0 03/12/19 03/12/19 06:55 06:55 Creatine Kinase 81 CK-MB (CK-2) 1.10 Troponin I 0.019 Impressions: Chest/Abdomen CTA 03/12/19 00:00 IMPRESSION: There are bibasilar airspace opacities which may reflect atelectasis or infection. No filling defect is seen to suggest a pulmonary artery embolism. There is a small hiatal hernia with thickening of the distal esophagus. This could be due to esophagitis. An underlying mass is not fully excluded. Interval follow-up is recommended. Chest X-Ray 03/12/19 06:17 IMPRESSION: 1. Patchy bibasilar opacities may represent bilateral pneumonic process. Continued radiographic follow-up to resolution recommended. Assessment and Plan - Diagnosis (1) Hypoxia Is this a current diagnosis for this admission?: Yes Plan: Patchy lower lobe opacities bilaterally. Continue empiric antibiotics. CT angiogram ruled out PE. Wean oxygen as tolerated. She is not on home oxygen. (2) Pneumonia Qualifiers: Pneumonia type: due to unspecified organism Laterality: bilateral Lung location: lower lobe of lung Qualified Code(s): J18.9 - Pneumonia, unspecified organism Is this a current diagnosis for this admission?: Yes Plan: Continue antibiotics IV Rocephin and IV azithromycin (3) Alcohol withdrawal Qualifiers: Complication of substance-induced condition: with unspecified complication Qualified Code(s): F10.239 - Alcohol dependence with withdrawal, unspecified Is this a current diagnosis for this admission?: Yes Plan: Continue IV fluids. Continue scheduled Ativan orally. Will decrease the dose to 1 mg every 6 hours. Will give Ativan as needed. Continue thiamine folic acid supplements. (4) Paroxysmal A-fib Is this a current diagnosis for this admission?: Yes Plan: A. fib with RVR. Currently resolved after starting Cardizem bolus and drip IV. Now converted to sinus rhythm. Continue Eliquis and oral Cardizem (5) Hypothyroidism Qualifiers: Hypothyroidism type: acquired Qualified Code(s): E03.9 - Hypothyroidism, unspecified Is this a current diagnosis for this admission?: Yes Plan: Continue levothyroxine (6) Obesity Qualifiers: Obesity type: unspecified obesity type Obesity classification: unspecified obesity classification Is this a current diagnosis for this admission?: Yes Plan: Recommend lifestyle modifications
[2019-03-15] MEDS: NORMAL SALINE 1000 ML 1,000 ML IV PRN ×2 (17:33→21:18)
[2019-03-15] MEDS: ATORVASTATIN CALCIUM 20 MG TABLET PO SCH (21:21)
[2019-03-15] MEDS: VENLAFAXINE HCL 37.5 MG CAP.SR.24H PO SCH (21:21)
[2019-03-16] MEDS: LEVOTHYROXINE SODIUM 0.088 MG TABLET PO SCH (05:14)
[2019-03-16] MEDS: GABAPENTIN 300 MG CAPSULE PO SCH (05:14)
[2019-03-16] MEDS: LORAZEPAM 1 MG TABLET PO SCH (05:14)
[2019-03-16] MEDS: IBUPROFEN 600 MG TABLET PO SCH (05:14)
[2019-03-16] MEDS: IPRATROPIUM/ALBUTEROL 0.5-2.5 MG/3 ML AMPUL NEB SCH ×2 (07:42→12:17)
[2019-03-16] MEDS: CEFTRIAXONE 1 GM/D5W RTU 1 GM/50 ML RTUPB IV SCH (09:17)
[2019-03-16] MEDS: FLUTICASONE/VILANTEROL 200-25 MCG/DOSE IH SCH (09:18)
[2019-03-16] MEDS: CLONIDINE HCL 0.1 MG TABLET PO SCH (09:19)
[2019-03-16] MEDS: THIAMINE HCL 100 MG TABLET PO SCH (09:20)
[2019-03-16] MEDS: POTASSIUM CHLORIDE 10 MEQ TABLET.ER PO SCH (09:20)
[2019-03-16] MEDS: METOPROLOL SUCCINATE 25 MG TAB.SR.24H PO SCH (09:20)
[2019-03-16] MEDS: APIXABAN 5 MG TABLET PO SCH (09:21)
[2019-03-16] MEDS: LISINOPRIL 10 MG TABLET PO SCH (09:21)
[2019-03-16] MEDS: HYDROCHLOROTHIAZIDE 25 MG TABLET PO SCH (09:21)
[2019-03-16] MEDS: FOLIC ACID 1 MG TABLET PO SCH (09:21)
[2019-03-16] MEDS: MAGNESIUM OXIDE 400 MG TABLET PO SCH (09:21)
[2019-03-16] MEDS: PANTOPRAZOLE SODIUM 20 MG TABLET.DR PO SCH (09:22)
[2019-03-16] MEDS: DILTIAZEM HCL 240 MG CAPSULE.CR PO SCH (09:22)
[2019-03-16] MEDS: AZITHROMYCIN 500 MG in DEXTROSE 5%-WATER 250 ML IV SCH (10:04)
[2019-03-16 11:31] VITALS: BP 112/64
--- NOTE | 2019-03-20 17:44 | PDOC DISCHARGE SUMMARY ---
Impression - Admit/DC Date/PCP Admission Date/Primary Care Provider: 03/12/19 10:50 BERNIE SAVAGE MD Discharge Date: 03/20/19 - Additional Information Resuscitation Status: Full Code Discharge Diet: As Tolerated Discharge Activity: Activity As Tolerated, Balance Activity w/Rest Referrals: BERNIE SAVAGE MD [Primary Care Provider] - 03/25/19 1:45 pm Prescriptions: Levofloxacin [Levaquin 500 mg Tablet] 500 mg PO DAILY 3 Days #3 tablet Home Medications: Albuterol Sulfate [Proair HFA Inhalation Aerosol 8.5 gm MDI] 2 puff IH Q4HP PRN 01/15/19 Hydrochlorothiazide [Hydrodiuril 25 mg Tablet] 25 mg PO DAILY 01/15/19 Levothyroxine Sodium 88 mcg PO Q6AM 01/15/19 Lisinopril [Prinivil 10 mg Tablet] 10 mg PO DAILY 01/15/19 Magnesium Oxide [Mag-Ox 400 mg Tablet] 400 mg PO DAILY 01/15/19 Potassium Chloride [K-Tab ER] 20 meq PO BID 01/15/19 Fluticasone Propion/Salmeterol [Wixela 250-50 Inhub] 1 each IH Q12 02/22/19 Apixaban [Eliquis 5 mg Tablet] 5 mg PO BID #30 tablet 02/26/19 Atorvastatin Calcium [Lipitor 20 mg Tablet] 20 mg PO QHS #15 tablet 02/26/19 Folic Acid 1 mg PO DAILY 03/01/19 Omeprazole 20 mg PO BID 03/01/19 Thiamine HCl [Vitamin B-1] 250 mg PO DAILY 03/01/19 Venlafaxine HCl ER [Effexor Xr 37.5 mg Cap.sr] 37.5 mg PO QHS 03/01/19 Gabapentin [Neurontin 300 mg Capsule] 300 mg PO BID #6 capsule 03/06/19 Clonidine HCl [Catapres 0.1 mg Tablet] 0.1 mg PO Q12 03/12/19 Diltiazem HCl [Diltiazem 24Hr ER] 240 mg PO DAILY 03/12/19 Ibuprofen [Motrin 600 mg Tablet] 600 mg PO TID 03/12/19 Metoprolol Succinate [Toprol Xl 25 mg Tab.sr] 25 mg PO DAILY 03/12/19 Levofloxacin [Levaquin 500 mg Tablet] 500 mg PO DAILY 3 Days #3 tablet 03/16/19 History of Present Illiness History of Present Illness: FABIANA HEAD is a 48 year old female with a past medical history of severe alcoholism, alcohol withdrawal seizures, paroxysmal atrial fibrillation on anticoagulation. Hypomagnesemia, hypokalemia, depression, hypertension and morbid obesity. She presents with shortness of breath, started acutely this morning. She denies cough or fever or wheezing. She is a heavy drinker and last drink was yesterday. She was actually hospitalized here last week for hypotension and alcoholism. Work-up in the ER shows possible bilateral patchy lower lobe opacities but the patient is afebrile and her white count is normal. She is tachypneic and tachycardic and appears in distress. She was put on BiPAP in the emergency room. Her PCO2 is 37. Hospital Course Hospital Course: (1) Hypoxia Resolved. SPO2 WNL on RA at the time of discharge. Patchy lower lobe opacities bilaterally. Started on empiric antibiotics supplemental oxygen. CT angiogram ruled out PE. (2) Pneumonia Likely community-acquired due to gram-positives including Streptococcus pneu monia. Was a started on empiric IV antibiotics. All cultures remain negative. SPO2 WNL at time of discharge. Discharged to continue 3 more days of p.o. levofloxacin. (3) Alcohol withdrawal Was admitted to telemetry. Started on IV fluids. DT precautions. Scheduled Ativan orally and PRN, thiamine folic acid supplements. Alert and oriented x3 at the time of discharge. Denies any auditory or visual hallucinations. Patient stated that she will be moving in with her friend in [place]. (4) Paroxysmal A-fib Presented with A. fib with RVR. Started on Cardizem bolus and drip IV. Converted to sinus rhythm. Discharge on Cardizem and oral Eliquis. (5) Hypothyroidism Was restarted on levothyroxine. (6) Obesity Diet and lifestyle modification recommended. Physical Exam Vital Signs: Temp Pulse Resp BP Pulse Ox 97.5 F 67 18 112/64 97 03/16/19 11:33 03/16/19 12:14 03/16/19 12:14 03/16/19 11:33 03/16/19 12:14 General appearance: PRESENT: morbidly obese Head exam: PRESENT: atraumatic, normocephalic Neck exam: ABSENT: carotid bruit, JVD, lymphadenopathy, thyromegaly Respiratory exam: PRESENT: clear to auscultation thomas. ABSENT: rales, rhonchi, wheezes Cardiovascular exam: PRESENT: RRR. ABSENT: diastolic murmur, rubs, systolic murmur GI/Abdominal exam: PRESENT: normal bowel sounds, soft. ABSENT: distended, guarding, mass, organolmegaly, rebound, tenderness Neurological exam: PRESENT: alert, awake, oriented to person, oriented to place, oriented to time, oriented to situation, CN II-XII grossly intact. ABSENT: motor sensory deficit Results Laboratory Results: WBC 12.8 10^3/uL (4.0-10.5) H 03/15/19 04:13 RBC 3.16 10^6/uL (3.72-5.28) L 03/15/19 04:13 Hgb 10.5 g/dL (12.0-15.5) L 03/15/19 04:13 Hct 31.0 % (36.0-47.0) L 03/15/19 04:13 MCV 98 fl (80-97) H 03/15/19 04:13 MCH 33.1 pg (27.0-33.4) 03/15/19 04:13 MCHC 33.8 g/dL (32.0-36.0) 03/15/19 04:13 RDW 14.4 % (11.5-14.0) H 03/15/19 04:13 Plt Count 345 10^3/uL (150-450) 03/15/19 04:13 Lymph % (Auto) Not Reportable 03/12/19 21:35 [place] % (Auto) Not Reportable 03/12/19 21:35 Eos % (Auto) Not Reportable 03/12/19 21:35 Baso % (Auto) Not Reportable 03/12/19 21:35 Absolute Neuts (auto) Not Reportable 03/12/19 21:35 Absolute Lymphs (auto) Not Reportable 03/12/19 21:35 Absolute Monos (auto) Not Reportable 03/12/19 21:35 Absolute Eos (auto) Not Reportable 03/12/19 21:35 Absolute Basos (auto) Not Reportable 03/12/19 21:35 Total Counted 100 03/12/19 21:35 Seg Neutrophils % Not Reportable 03/12/19 21:35 Seg Neuts % (Manual) 82 % (42-78) H 03/12/19 21:35 Band Neutrophils % 1 % (3-5) L 03/12/19 21:35 Lymphocytes % (Manual) 16 % (13-45) 03/12/19 21:35 Monocytes % (Manual) 1 % (3-13) L 03/12/19 21:35 Eosinophils % (Manual) 0 % (0-6) 03/12/19 21:35 Basophils % (Manual) 0 % (0-2) 03/12/19 21:35 Abs Neuts (Manual) 10.6 10^3/uL (1.7-8.2) H 03/12/19 21:35 Abs Lymphs (Manual) 2.0 10^3/uL (0.5-4.7) 03/12/19 21:35 Abs Monocytes (Manual) 0.1 10^3/uL (0.1-1.4) 03/12/19 21:35 Absolute Eos (Manual) 0.0 10^3/uL (0.0-0.6) 03/12/19 21:35 Abs Basophils (Manual) 0.0 10^3/uL (0.0-0.2) 03/12/19 21:35 Platelet Comment ADEQUATE 03/12/19 21:35 Anisocytosis SLIGHT 03/12/19 21:35 PT 13.5 SEC (11.4-15.4) 03/12/19 16:06 INR 1.03 03/12/19 16:06 APTT 39.2 SEC (23.5-35.8) H 03/13/19 11:40 D-Dimer 2.92 ug/mL (0.00-0.50) H 03/12/19 16:06 Carbonic Acid 0.85 mmol/L (1.05-1.35) L 03/12/19 17:35 HCO3/H2CO3 Ratio 22:1 03/12/19 17:35 ABG pH 7.45 (7.35-7.45) 03/12/19 17:35 ABG pCO2 28.1 mmHg (35-45) L 03/12/19 17:35 ABG pO2 221.3 mmHg (80-100) H 03/12/19 17:35 ABG HCO3 19.0 mmol/L (20-24) L 03/12/19 17:35 ABG Total CO2 19.9 mmol/L (21-25) L 03/12/19 17:35 ABG O2 Saturation 99.5 % (94-98) H 03/12/19 17:35 ABG Base Excess -3.8 mmol/L 03/12/19 17:35 FiO2 45% 03/12/19 17:35 Sodium 135.8 mmol/L (137-145) L 03/15/19 04:13 Potassium 4.5 mmol/L (3.6-5.0) 03/15/19 04:13 Chloride 103 mmol/L (98-107) 03/15/19 04:13 Carbon Dioxide 23 mmol/L (22-30) 03/15/19 04:13 Anion Gap 10 (5-19) 03/15/19 04:13 BUN 17 mg/dL (7-20) 03/15/19 04:13 Creatinine 1.04 mg/dL (0.52-1.25) 03/15/19 04:13 Est GFR ( Amer) > 60 (>60) 03/15/19 04:13 Est GFR (MDRD) Non-Af 56 (>60) L 03/15/19 04:13 Glucose 101 mg/dL (75-110) 03/15/19 04:13 Calcium 8.5 mg/dL (8.4-10.2) 03/15/19 04:13 Magnesium 2.1 mg/dL (1.6-2.3) 03/15/19 04:13 Total Bilirubin 0.3 mg/dL (0.2-1.3) 03/12/19 06:55 Direct Bilirubin 0.3 mg/dL (0.0-0.4) 03/12/19 06:55 Neonat Total Bilirubin Not Reportable 03/12/19 06:55 Neonat Direct Bilirubin Not Reportable 03/12/19 06:55 Neonat Indirect Bili Not Reportable 03/12/19 06:55 AST 53 U/L (14-36) H 03/12/19 06:55 ALT 32 U/L (<35) 03/12/19 06:55 Alkaline Phosphatase 97 U/L (38-126) 03/12/19 06:55 Creatine Kinase 81 U/L (30-135) 03/12/19 06:55 CK-MB (CK-2) 1.10 ng/mL (<4.55) 03/12/19 06:55 Troponin I 0.019 ng/mL 03/12/19 06:55 Total Protein 7.6 g/dL (6.3-8.2) 03/12/19 06:55 Albumin 4.0 g/dL (3.5-5.0) 03/12/19 06:55 Urine Color STRAW 03/15/19 06:00 Urine Appearance CLEAR 03/15/19 06:00 Urine pH 6.0 (5.0-9.0) 03/15/19 06:00 Ur Specific [place] 1.006 03/15/19 06:00 Urine Protein NEGATIVE mg/dL (NEGATIVE) 03/15/19 06:00 Urine Glucose (UA) NEGATIVE mg/dL (NEGATIVE) 03/15/19 06:00 Urine Ketones NEGATIVE mg/dL (NEGATIVE) 03/15/19 06:00 Urine Blood NEGATIVE (NEGATIVE) 03/15/19 06:00 Urine Nitrite NEGATIVE (NEGATIVE) 03/15/19 06:00 Urine Bilirubin NEGATIVE (NEGATIVE) 03/15/19 06:00 Urine Urobilinogen NEGATIVE mg/dL (<2.0) 03/15/19 06:00 Ur Leukocyte Esterase NEGATIVE (NEGATIVE) 03/15/19 06:00 Urine WBC (Auto) 1 /HPF 03/15/19 06:00 Urine RBC (Auto) 0 /HPF 03/15/19 06:00 Urine Bacteria (Auto) TRACE /HPF 03/15/19 06:00 Squamous Epi Cells Auto 1 /HPF 03/12/19 09:14 Urine Mucus (Auto) RARE /LPF 03/15/19 06:00 Urine Ascorbic Acid NEGATIVE (NEGATIVE) 03/15/19 06:00 Urine Opiates Screen NEGATIVE 03/12/19 09:14 Urine Methadone Screen NEGATIVE 03/12/19 09:14 Ur Barbiturates Screen NEGATIVE 03/12/19 09:14 Ur Phencyclidine Scrn NEGATIVE 03/12/19 09:14 Ur Amphetamines Screen NEGATIVE 03/12/19 09:14 U Benzodiazepines Scrn UNCONFIRMED POSITIVE 03/12/19 09:14 Urine Cocaine Screen NEGATIVE 03/12/19 09:14 U Marijuana (THC) Screen NEGATIVE 03/12/19 09:14 Serum Alcohol 275 mg/dL (NONE DETECTED) 03/12/19 06:55 03/12/19 06:55 CK-MB (CK-2) 1.10 Troponin I 0.019 Impressions: Chest/Abdomen CTA 03/12/19 00:00 IMPRESSION: There are bibasilar airspace opacities which may reflect atelectasis or infection. No filling defect is seen to suggest a pulmonary artery embolism. There is a small hiatal hernia with thickening of the distal esophagus. This could be due to esophagitis. An underlying mass is not fully excluded. Interval follow-up is recommended. Chest X-Ray 03/12/19 06:17 IMPRESSION: 1. Patchy bibasilar opacities may represent bilateral pneumonic process. Continued radiographic follow-up to resolution recommended. Stroke Is this a Stroke Patient?: No Acute Heart Failure - Is this a Heart Failure Patient?: No
== END 2019-03-16 13:25 | disposition home or self-care (01) | DRG 194 ==
LOC: ER 06:00 → EH 10:50 → 5 12:52 → 3N 18:00
PROVIDERS: ADMIT Family Medicine; ATTEND Family Medicine
PROC: 5A09457 Assistance with Respiratory Ventilation, 24-96 Consecutive Hours, Continuous Positive Airway Pressure (ICD-10-PCS; principal; 2019-03-12)
DX: J13 Pneumonia due to Streptococcus pneumoniae (principal); F10.239 Alcohol dependence with withdrawal, unspecified; J44.0 Chronic obstructive pulmonary disease with (acute) lower respiratory infection; I48.0 Paroxysmal atrial fibrillation; E83.42 Hypomagnesemia; E87.6 Hypokalemia; I10 Essential (primary) hypertension; E66.01 Morbid (severe) obesity due to excess calories; R09.02 Hypoxemia; E03.9 Hypothyroidism, unspecified; E78.5 Hyperlipidemia, unspecified; K21.9 Gastro-esophageal reflux disease without esophagitis; F31.9 Bipolar disorder, unspecified; E78.00 Pure hypercholesterolemia, unspecified; Y90.8 Blood alcohol level of 240 mg/100 ml or more; I25.2 Old myocardial infarction; Z79.01 Long term (current) use of anticoagulants; Z79.899 Other long term (current) drug therapy
CPT/HCPCS: 36415; 36600; 71045; 71275; 80048; 80053; 80307; 81001; 82550; 82553; 82803; 83735; 84484; 85025; 85027; 85379; 85610; 85730; 87040; 93005; 93010; 93306; 94640; 94660; 99291; J0456; J0696; J1644; J2060; J3360; J3475; J3490; J7030; J7060; J7620

== ENCOUNTER 2019-05-26 00:55 | Emergency (ER) | payer MEDICARE, MEDICAID ==
[2019-05-26] MEDS ORDERED: ALBUTEROL SULFATE 0.083% NEB 2.5 MG/3 ML AMPUL NEB ONE (01:23)
--- NOTE | 2019-05-26 01:28 | ER Document Report ---
ED General - General Chief Complaint: Abdominal Pain Stated Complaint: GENERAL WEAKNESS Time Seen by Provider: 05/26/19 01:07 Primary Care Provider: BERNIE SAVAGE MD [Primary Care Provider] - Follow up as needed Notes: 48-year-old female presents emergency department via EMS for sharp stabbing right-sided abdominal pain that has been constantly present since around 6 PM this evening. States it started shortly after she finished drinking half a gallon of vodka. Admits this is approximately the same as she drinks on a daily basis. Denies ever having had a similar pain. Denies nausea or vomiting, admits diarrhea. Denies fevers or chills. States that she has not actually had any food to eat in the past 2 days because she states she no longer has food where she is staying. TRAVEL OUTSIDE OF THE [place] 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 Denies: Hx Migraine, Hx Parkinson's Disease Endocrine Medical History: Reports: Hx Hypothyroidism. Denies: Hx Diabetes Tara itus Type 1, Hx Diabetes Mellitus Type 2, Hx Hyperthyroidism Renal/ Medical History: Denies: Hx End Stage Renal Disease, Hx Peritoneal Dialysis GI Medical History: Reports: Hx Gastroesophageal Reflux Disease. Denies: Hx Cirrhosis, Hx Crohn's Disease, Hx Hepatitis, Hx Hiatal Hernia, Hx Pancreatitis, Hx Ulcer, Hx Ulcerative Colitis Musculoskeletal Medical History: Denies Hx Arthritis, Denies Hx Fibromyalgia, Reports Hx Musculoskeletal Deformity, Reports Hx Musculoskeletal Trauma Skin Medical History: Denies Hx Eczema, Denies Hx Psoriasis Psychiatric Medical History: Reports: Hx Bipolar Disorder, Hx Depression Denies: Hx Schizophrenia Traumatic Medical History: Reports: Hx Fractures - R. leg. Pt. has a steel debi. Infectious Medical History: Denies: Hx Hepatitis Past Surgical History: Reports: Hx Appendectomy, Hx Cholecystectomy, Hx Orthopedic Surgery - right knee, Hx Tonsillectomy, Hx Tubal Ligation. Denies: Hx Bowel Surgery, Hx Section, Hx Hysterectomy, Hx Mastectomy - Immunizations Hx Diphtheria, Pertussis, Tetanus Vaccination: No Hx Pneumococcal Vaccination: 05/05/11 Review of Systems - Review of Systems Constitutional: No symptoms reported Gastrointestinal: See HPI, Abdominal pain, Diarrhea. denies: Nausea, Vomiting -: Yes All other systems reviewed and negative Physical Exam - Notes Notes: GENERAL: Awake, interacts well. No acute distress. HEAD: Normocephalic, atraumatic EYES: Pupils equal, round and reactive to light, extraocular movements intact. ENT: Oral mucosa moist, tongue midline. NECK: Full range of motion, supple, trachea midline. LUNGS: No respiratory distress but requires 2 L of oxygen via nasal cannula, dropped down to 88% when I turn off her oxygen. Trace expiratory wheezing, inspiratory rhonchi, no tachypnea. HEART: Regular rate and rhythm, 2+ systolic ejection murmur, no gallops or rubs. ABDOMEN: Soft, quite tender to palpation suprapubically, right lower quadrant and right upper quadrant as well as epigastrically, there is no guarding, rigidity or rebounding, nondistended, bowel sounds present in all 4 quadrants. EXTREMITIES: Moves all 4 extremities spontaneously, no edema, radial and dorsalis pedis pulses 2/4 bilaterally. No cyanosis. NEUROLOGICAL: Appears moderately intoxicated, speech somewhat slurred, no focal weakness, no facial droop, moves all 4 extremities spontaneously. SKIN: Warm, Dry, normal turgor, no rashes or lesions noted. Course - Re-evaluation Re-evalutation: 05/26/19 04:56 CBC shows anemia with a hemoglobin 9.6, only slightly worse than a few weeks ago, she does have thrombocytopenia with a platelet count of 139, this is consistent with chronic alcohol abuse, chemistries show elevated BUN and creatinine, she has had similar findings in the past, BUN is 29, creatinine is 2.95, CO2 is low at 28, these will be repeated after she has received 2 L of LR. Calcium is somewhat low at 7.8. test is negative, lipase is normal, LFTs are actually normal, urinalysis shows trace ketones and trace leukocyte esterase, 3+ bacteria but 11 squamous epithelial cells, suspect this is contaminated. Surprisingly alcohol level is only 287, patient is unlikely to have ingested the entire half gallon of vodka that she reports she ingested. Chest X-Ray 05/26/19 01:19 IMPRESSION: No acute cardiopulmonary findings. 05/26/19 04:57 Unfortunately given her elevated creatinine radiology would not perform a contrasted CAT scan. CT scan had no acute findings. She does have longstanding hepatic steatosis. 05/26/19 05:56 Repeat BMP shows some improvement in the creatinine at 1 from 2.95-2.39, patient will be given 1 more liter of lactated Ringer's, patient has a primary care physician, Dr. Savage, who she will follow-up with as an outpatient to have her kidney function rechecked. I discussed with her the importance of drinking water and decreasing her alcohol intake. Patient states that she would like to quit drinking but she just does not know how. States she is tried multiple times on her own but has great difficulty with it. Discussed with patient the possibility of going to [facility]. Patient is quite excited about this possibility. Patient will be given 1/3 L of LR and then discharge to [facility]. I did turn off her oxygen while she was awake and she no longer requires additional oxygen via nasal cannula. The patient maintains at approximately 93% on room air. Patient does snore quite loudly and while asleep she will drop down to 89%. I suspect that this morbidly obese patient with COPD and snoring has a component of sleep apnea. Patient is advised to follow-up with Dr. Savage as an outpatient for this as well. - Laboratory Result Diagrams: 05/26/19 01:06 05/26/19 05:04 Laboratory results interpreted by me: 05/26/19 05/26/19 05/26/19 01:06 01:06 02:53 RBC 2.76 L Hgb 9.6 L Hct 27.3 L MCV 99 H MCH 34.7 H RDW 14.9 H Plt Count 139 L Lymph % (Auto) 49.4 H Seg Neutrophils % 38.1 L Chloride 110 H Carbon Dioxide 20 L BUN 29 H Creatinine 2.95 H Est GFR ( Amer) 20 L Est GFR (MDRD) Non-Af 17 L Glucose Calcium 7.8 L Total Bilirubin < 0.1 L Albumin 3.3 L Urine Ketones TRACE H Leukocyte Esterase Rfl TRACE H 05/26/19 05:04 RBC Hgb Hct MCV MCH RDW Plt Count Lymph % (Auto) Seg Neutrophils % Chloride 111 H Carbon Dioxide BUN 29 H Creatinine 2.39 H Est GFR ( Amer) 26 L Est GFR (MDRD) Non-Af 22 L Glucose 121 H Calcium 7.7 L Total Bilirubin Albumin Urine Ketones Leukocyte Esterase Rfl - EKG Interpretation by Me Additional EKG results interpreted by me: 05/26/19 04:58 EKG shows an accelerated junctional escape rhythm per computer interpretation however I think the computer interpretation is wrong, she has a somewhat irregular baseline however I see well-formed P waves, none of them are retrograde, [place] interval is borderline prolonged at exactly 200, no ST segment e levations or depressions, no T wave inversions per my interpretation. Discharge - Discharge Clinical Impression: Right lower quadrant abdominal pain, Alcohol abuse, ALEJA (acute kidney injury) Condition: Stable Disposition: HOME, SELF-CARE Additional Instructions: Please go directly to [facility]. They are a short stay rehab facility that can help you to quit drinking. They are able to use medication there to help prevent withdrawals. Your blood work today did show signs of kidney damage once again. It is very important that you follow-up with your primary care physician Dr. Savage as an outpatient. Please have them recheck your kidney function in approximately 1 week. Referrals: BERNIE SAVAGE MD [Primary Care Provider] - Follow up as needed
[2019-05-26 01:41] LABS: ABSOLUTE BASOPHILS # (AUTO) 0.1 10^3/uL (0.0-0.2); ABSOLUTE EOSINOPHILS # (AUTO) 0.2 10^3/uL (0.0-0.6); ABSOLUTE LYMPHOCYTES (AUTO) 3.3 10^3/uL (0.5-4.7); ABSOLUTE MONOCYTES (AUTO) 0.6 10^3/uL (0.1-1.4); ABSOLUTE NEUT (AUTO) 2.5 10^3/uL (1.7-8.2); EOSINOPHILS % (AUTO) 2.4 % (0-6); HEMATOCRIT 27.3 % (36.0-47.0); HEMOGLOBIN 9.6 g/dL (12.0-15.5); LYMPHOCYTES % (AUTO) 49.4 % (13-45); MEAN CORPUSCULAR HEMOGLOBIN 34.7 pg (27.0-33.4); MEAN CORPUSCULAR HGB CONC 35.2 g/dL (32.0-36.0); MEAN CORPUSCULAR VOLUME 99 fl (80-97); MONOCYTES % (AUTO) 9.1 % (3-13); PLATELET COUNT 139 10^3/uL (150-450); RED BLOOD COUNT 2.76 10^6/uL (3.72-5.28); RED CELL DISTRIBUTION WIDTH 14.9 % (11.5-14.0); SEGMENTED NEUTROPHILS % (AUTO) 38.1 % (42-78); TOTAL CELLS COUNTED % (AUTO) 100 %; WHITE BLOOD COUNT 6.7 10^3/uL (4.0-10.5)
[2019-05-26 01:56] LABS: ALBUMIN 3.3 g/dL (3.5-5.0); ALCOHOL 287 mg/dL (NONE DETECTED); ALKALINE PHOSPHATASE 80 U/L (38-126); ANION GAP 9 (5-19); ASPARTATE AMINO TRANSFERASE 32 U/L (14-36); BLOOD UREA NITROGEN 29 mg/dL (7-20); CALCIUM 7.8 mg/dL (8.4-10.2); CARBON DIOXIDE 20 mmol/L (22-30); CHLORIDE 110 mmol/L (98-107); GLUCOSE 100 mg/dL (75-110); POTASSIUM 4.8 mmol/L (3.6-5.0); TOTAL PROTEIN 6.3 g/dL (6.3-8.2)
[2019-05-26 01:57] LABS: BILIRUBIN,TOTAL < 0.1 mg/dL (0.2-1.3)
[2019-05-26] MEDS: RINGERS SOLUTION,LACTATED 1,000 ML IV PRN ×2 (02:52→04:07)
[2019-05-26 03:30] LABS: APPEARANCE,URINE SLIGHTLY-CLOUDY; BILIRUBIN,URINE NEGATIVE (NEGATIVE); COLOR,URINE YELLOW; GLUCOSE, URINE NEGATIVE (NEGATIVE); KETONES,URINE TRACE mg/dL (NEGATIVE); PROTEIN,URINE NEGATIVE (NEGATIVE); URINE SPECIFIC GRAVITY 1.014; UROBILINOGEN,URINE NEGATIVE mg/dL (<2.0)
--- NOTE | 2019-05-26 03:42 | RADIOLOGY REPORT (SQ) ---
EXAM DESCRIPTION: CT ABDOMEN PELVIS WITHOUT IV CONTRAST COMPLETED DATE/TME: 05/26/2019 01:19 CLINICAL HISTORY: 48 years Female, RLQ, RUQ pain. drinks 1/2 gallon of vodka daily Comparison:Jun 04 2015 Technique: No contrast. Coronal and sagittal reformat. This exam was performed according to our departmental dose-optimization program, which includes automated exposure control, adjustment of the mA and/or kV according to patient size and/or use of iterative reconstruction technique.[facility]: Dose Right [facility]: CareDose [facility]: Dose Right [facility]: Teradose 4D [facility]: Medikidz LIMITATIONS: None Findings: Small hiatal hernia. Hepatic steatosis. Cholecystectomy. Tubal ligation clips. Colonic diverticulosis. No ascites. No pneumoperitoneum. Normal appendix. No bowel obstruction. No hydronephrosis or hydroureter. No renal/ureteral stone. No evidence of abdominal aortic aneurysm. No gross evidence of thecal sac/cord or nerve root compression. Unenhanced lower thorax, abdominopelvic structures, and musculoskeleton appear otherwise grossly unremarkable. Impression: 1. No acute findings. 2. Small hiatal hernia. 3. Hepatic steatosis. 4. Cholecystectomy. 5. Tubal ligation clips. 6. Colonic diverticulosis.
--- NOTE | 2019-05-26 03:53 | RADIOLOGY REPORT (SQ) ---
EXAM DESCRIPTION: XR CHEST 2 VIEWS COMPLETED DATE/TME: 05/26/2019 01:19 CLINICAL HISTORY: 48 years Female, hypoxia COMPARISON: 03/12/19 NUMBER OF VIEWS/TECHNIQUE: 2, Frontal, Lateral FINDINGS: Adequate lung volume, clear parenchyma, normal cardiac silhouette, and intact bony thorax.Upper abdominal clips. IMPRESSION: No acute cardiopulmonary findings.
[2019-05-26 05:41] LABS: ANION GAP 6 (5-19); BLOOD UREA NITROGEN 29 mg/dL (7-20); CALCIUM 7.7 mg/dL (8.4-10.2); CARBON DIOXIDE 22 mmol/L (22-30); CHLORIDE 111 mmol/L (98-107); GLUCOSE 121 mg/dL (75-110); POTASSIUM 4.3 mmol/L (3.6-5.0)
[2019-05-26] MEDS ORDERED: RINGERS SOLUTION,LACTATED 1,000 ML IV ONE (05:51)
--- NOTE | 2019-05-26 10:08 | EKG REPORT ---
SEVERITY:- ABNORMAL ECG - ACCELERATED JUNCTIONAL ESCAPE RHYTHM : Confirmed by: Tamara Boyer MD 26-May-2019 10:07:22
[2019-05-26 15:49] VITALS: BP 118/73
== END 2019-05-26 15:30 | disposition home or self-care (01) ==
LOC: ER 00:55
DX: F10.10 Alcohol abuse, uncomplicated (principal); N17.9 Acute kidney failure, unspecified; R53.1 Weakness; R10.31 Right lower quadrant pain; I48.91 Unspecified atrial fibrillation; E78.00 Pure hypercholesterolemia, unspecified; I10 Essential (primary) hypertension; I25.2 Old myocardial infarction; Z90.49 Acquired absence of other specified parts of digestive tract; Z98.51 Tubal ligation status
CPT/HCPCS: 93005; 94640; 99285; 96360; 96361; 36415; 80307; 83690; 84703; 85025; 80053; 81001; 71046; 74176; 93010; J7120; A9270

== ENCOUNTER 2019-07-28 20:18 | Inpatient (IN) | payer MEDICARE, MEDICAID ==
[2019-07-28] MEDS ORDERED: NORMAL SALINE 1000 ML 1,000 ML IV ONE ×2 (21:28→22:53)
--- NOTE | 2019-07-28 21:31 | ER Document Report ---
ED General - General Chief Complaint: Nausea/Vomiting Stated Complaint: NAUSEA/VOMITING Primary Care Provider: BERNIE SAVAGE MD [Primary Care Provider] - Follow up as needed Notes: Patient is a 48-year-old white female with a history of alcoholism who presents to the emergency department today with a chief complaint of nausea and vomiting that began this morning around 8 AM. Patient states that she normally drinks about 1/2 gallon of vodka per day. She states yesterday at 11 AM she began drinking vodka. She states this time she mixed about 1/2 gallon of beer with it as well. She drank around 11 AM to 9 PM and then passed out. States she awoke at 8 AM and was vomiting. She states she normally tolerates a vodka well and does not mix beer with liquor. She states she feels this is why she woke up sick. She admits to 1 episode of diarrhea with vomiting and dry heaving. Medication given by EMS in route, patient reports significant improvement. Denies any localized pain, fever, coughing, drug abuse or smoking. Denies any recent travel or known sick contacts. Reports her last vomitus was at 5 PM. She is tolerated small liquids since. Requesting ice. TRAVEL OUTSIDE OF THE [place] 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 Denies: Hx Migraine, Hx Parkinson's Disease Endocrine Medical History: Reports: Hx Hypothyroidism. Denies: Hx Diabetes Mellitus Type 1, Hx Diabetes Mellitus Type 2, Hx Hyperthyroidism Renal/ Medical History: Denies: Hx End Stage Renal Disease, Hx Peritoneal Dialysis GI Medical History: Reports: Hx Gastroesophageal Reflux Disease. Denies: Hx Cirrhosis, Hx Crohn's Disease, Hx Hepatitis, Hx Hiatal Hernia, Hx Pancreatitis, Hx Ulcer, Hx Ulcerative Colitis Musculoskeletal Medical History: Denies Hx Arthritis, Denies Hx Fibromyalgia, Re ports Hx Musculoskeletal Deformity, Reports Hx Musculoskeletal Trauma Skin Medical History: Denies Hx Eczema, Denies Hx Psoriasis Psychiatric Medical History: Reports: Hx Bipolar Disorder, Hx Depression Denies: Hx Schizophrenia Traumatic Medical History: Reports: Hx Fractures - R. leg. Pt. has a steel debi. Infectious Medical History: Denies: Hx Hepatitis Past Surgical History: Reports: Hx Appendectomy, Hx Cholecystectomy, Hx Orthopedic Surgery - right knee, Hx Tonsillectomy, Hx Tubal Ligation. Denies: Hx Bowel Surgery, Hx Section, Hx Hysterectomy, Hx Mastectomy - Immunizations Hx Diphtheria, Pertussis, Tetanus Vaccination: No Hx Pneumococcal Vaccination: 05/05/11 Review of Systems - Review of Systems Gastrointestinal: Diarrhea, Nausea, Vomiting -: Yes All other systems reviewed and negative Physical Exam - Vital signs Vitals: Temp Resp 98.3 F 26 H 07/28/19 20:35 07/28/19 20:35 - General General appearance: Appears well, Alert In distress: None - Respiratory Respiratory status: No respiratory distress Chest status: Nontender Breath sounds: Normal Chest palpation: Normal - Cardiovascular Rhythm: Regular Heart sounds: Normal auscultation - Abdominal Inspection: Normal Distension: No distension Bowel sounds: Normal Tenderness: Nontender Organomegaly: No organomegaly - Neurological Neuro grossly intact: Yes Cognition: Normal Orientation: AAOx4 - Psychological Associated symptoms: Normal affect, Normal mood - Skin Skin Temperature: Warm Skin Moisture: Dry Skin Color: Normal Course - Re-evaluation Re-evalutation: 07/28/19 23:07 EKG showing A. fib with RVR at a rate of 120. Interpreted by ED attending. - Vital Signs Vital signs: Temp Pulse Resp BP Pulse Ox 98.9 F 20 144/93 H 99 07/28/19 23:10 07/28/19 23:02 07/28/19 23:02 07/28/19 22:55 - Laboratory Result Diagrams: 07/28/19 21:32 07/28/19 21:32 Laboratory results interpreted by me: 07/28/19 07/28/19 21:32 21:32 RBC 3.03 L Hgb 10.6 L Hct 30.9 L MCV 102 H MCH 34.8 H RDW 15.4 H Plt Count 131 L Lymph % (Auto) 11.6 L Sodium 136.4 L Potassium 5.9 H Chloride 109 H Carbon Dioxide 19 L BUN 24 H Creatinine 1.87 H Est GFR ( Amer) 35 L Est GFR (MDRD) Non-Af 29 L AST 43 H ALT 46 H Alkaline Phosphatase 188 H Discharge - Discharge Clinical Impression: Hyperkalemia, Alcohol abuse, Atrial fibrillation with rapid ventricular response Alcohol withdrawal Qualifiers: Complication of substance-induced condition: uncomplicated Qualified Code(s): F10.230 - Alcohol dependence with withdrawal, uncomplicated Nausea & vomiting Qualifiers: Vomiting type: unspecified Vomiting Intractability: non-intractable Qualified Code(s): R11.2 - Nausea with vomiting, unspecified Condition: Stable Disposition: ADMITTED INPATIENT Admitting Provider: Tom (Hospitalist) Unit Admitted: IMCU Referrals: BERNIE SAVAGE MD [Primary Care Provider] - Follow up as needed
[2019-07-28 21:56] LABS: ABSOLUTE BASOPHILS # (AUTO) 0.1 10^3/uL (0.0-0.2); ABSOLUTE LYMPHOCYTES (AUTO) 0.8 10^3/uL (0.5-4.7); ABSOLUTE MONOCYTES (AUTO) 0.7 10^3/uL (0.1-1.4); ABSOLUTE NEUT (AUTO) 5.3 10^3/uL (1.7-8.2); BASOPHILS % (AUTO) 0.8 % (0-2); EOSINOPHILS % (AUTO) 0.2 % (0-6); HEMATOCRIT 30.9 % (36.0-47.0); HEMOGLOBIN 10.6 g/dL (12.0-15.5); LYMPHOCYTES % (AUTO) 11.6 % (13-45); MEAN CORPUSCULAR HEMOGLOBIN 34.8 pg (27.0-33.4); MEAN CORPUSCULAR HGB CONC 34.1 g/dL (32.0-36.0); MEAN CORPUSCULAR VOLUME 102 fl (80-97); MONOCYTES % (AUTO) 10.5 % (3-13); PLATELET COUNT 131 10^3/uL (150-450); RED BLOOD COUNT 3.03 10^6/uL (3.72-5.28); RED CELL DISTRIBUTION WIDTH 15.4 % (11.5-14.0); SEGMENTED NEUTROPHILS % (AUTO) 76.9 % (42-78); TOTAL CELLS COUNTED % (AUTO) 100 %; WHITE BLOOD COUNT 6.9 10^3/uL (4.0-10.5)
[2019-07-28 22:12] LABS: ALBUMIN 4.1 g/dL (3.5-5.0); ALKALINE PHOSPHATASE 188 U/L (38-126); ANION GAP 8 (5-19); ASPARTATE AMINO TRANSFERASE 43 U/L (14-36); BILIRUBIN,DIRECT 0.1 mg/dL (0.0-0.4); BILIRUBIN,TOTAL 1.2 mg/dL (0.2-1.3); BLOOD UREA NITROGEN 24 mg/dL (7-20); CALCIUM 9.2 mg/dL (8.4-10.2); CARBON DIOXIDE 19 mmol/L (22-30); CHLORIDE 109 mmol/L (98-107); GLUCOSE 94 mg/dL (75-110); POTASSIUM 5.9 mmol/L (3.6-5.0); TOTAL PROTEIN 7.7 g/dL (6.3-8.2)
[2019-07-28] MEDS ORDERED: LORAZEPAM INJ 2 MG/1 ML VIAL IV ONE (23:03)
[2019-07-28] MEDS ORDERED: METOPROLOL TARTRATE PF/INJ 5 MG/5 ML SDV IV ONE (23:06)
[2019-07-28] MEDS ORDERED: DILTIAZEM HCL INJ 25 MG/5 ML VIAL IV ONE (23:06)
[2019-07-28] MEDS ORDERED: LACTULOSE SYRUP 20 GM/30 ML UDCUP PO ONE (23:57)
[2019-07-28] MEDS ORDERED: LORAZEPAM INJ 2 MG/1 ML VIAL IV PRN (23:57)
[2019-07-28] MEDS ORDERED: DILTIAZEM HCL/D5W 125 MG/125 ML RTUINJ IV PRN (23:57)
[2019-07-28] MEDS ORDERED: MAG HYDROX/AL HYDROX/SIMETH SUSP 30 ML UDCUP PO PRN (23:59)
[2019-07-29 00:19] LABS: PHOSPHORUS 3.1 mg/dL (2.5-4.5)
[2019-07-29] MEDS ORDERED: FOLIC ACID INJ 5 MG/1 ML 10 ML VIAL IV PRN (00:22)
[2019-07-29] MEDS ORDERED: THIAMINE HCL INJ 200 MG/2 ML VIAL IV PRN (00:22)
[2019-07-29] MEDS ORDERED: THIAMINE HCL 100 MG, FOLIC ACID 1 MG in NORMAL SALINE 250 ML IV ONE (00:30)
[2019-07-29] MEDS ORDERED: CLONIDINE HCL 0.2 MG TABLET PO ONE (01:45)
[2019-07-29] MEDS: DIAZEPAM INJ 10 MG/2 ML DISP.SYRIN IV SCH ×4 (01:46→22:26)
[2019-07-29] MEDS ORDERED: CALCIUM GLUC IN NACL, ISO-OSM 1 GM/50 ML RTUPB IV ONE (04:31)
[2019-07-29] MEDS ORDERED: SODIUM POLYSTYRENE SULFONATE 15 GM/60 ML PO ONE (04:32)
--- NOTE | 2019-07-29 04:38 | PDOC H&P ---
History of Present Illness Admission Date/PCP: 07/29/19 00:06 BERNIE SAVAGE MD Patient complains of: Alcohol withdrawal History of Present Illness: FABIANA HEAD is a 48 year old female with a past medical history of severe alcoholism, alcohol withdrawal seizures, paroxysmal atrial fibrillation without anticoagulation and tobacco dependence. She presents with hyperkalemia with peaked T waves, macrocytic anemia, thrombocytopenia, atrial fibrillation with R VR and tremor stating her last drink was about 24 hours ago. She started on IV Cardizem and referred to the hospitalist for admission. Past Medical History Cardiac Medical History: Reports: Atrial Fibrillation, Myocardial Infarction - at 22 y/o effedrine induced, Hyperlipidema, Hypertension Denies: Congestive Heart Failure, Coronary Artery Disease, Peripheral Vascular Disease, Pulmonary Embolism, Heart Murmur Pulmonary Medical History: Reports: Asthma, Chronic Obstructive Pulmonary Disease (COPD) Denies: Bronchitis, Pneumonia, Respiratory Failure, Sleep Apnea, Tuberculosis Neurological Medical History: Reports: Seizures - With alcohol withdrawal Denies: Migraine Endocrine Medical History: Reports: Hypothyroidism Denies: Diabetes Mellitus Type 1, Diabetes Mellitus Type 2, Hyperthyroidism Renal/ Medical History: Denies: End Stage Renal Disease GI Medical History: Reports: Gastroesophageal Reflux Disease Denies: Cirrhosis, Crohn's Disease, Hepatitis, Hiatal Hernia, Ulcerative Colitis Musculoskeltal Medical History: Denies: Arthritis, Fibromyalgia Skin Medical History: Denies: Eczema, Psoriasis Psychiatric Medical History: Reports: Alcohol Dependency, Bipolar Disorder, Depression Hematology: Denies: Anemia, Hemophilia, Bleeding Tendencies, Heparin Induced Thrombocytopenia Past Surgical History Past Surgical History: Reports: Appendectomy, Cholecystectomy, Orthopedic Surgery - right knee, Tonsillectomy, Tubal Ligation Denies: Amputation, Section, Hysterectomy, Mastectomy Social History Information Source: Emergency Med Personnel, COUNTS INCLUDE 234 BEDS AT THE [facility] Records Smoking Status: Never Smoker Electronic Cigarette use?: No Frequency of Alcohol Use: Heavy Hx Recreational Drug Use: No Drugs: None Hx Prescription Drug Abuse: No - Advance Directive Resuscitation Status: Full Code Family History Family History: Malignancy Parental Family History Reviewed: Yes Children Family History Reviewed: Yes Sibling(s) Family History Reviewed.: Yes Medication/Allergy Home Medications: Albuterol Sulfate [Proair HFA Inhalation Aerosol 8.5 gm MDI] 2 puff IH Q4HP PRN 01/15/19 Hydrochlorothiazide [Hydrodiuril 25 mg Tablet] 25 mg PO DAILY 01/15/19 Levothyroxine Sodium 88 mcg PO Q6AM 01/15/19 Lisinopril [Prinivil 10 mg Tablet] 10 mg PO DAILY 01/15/19 Magnesium Oxide [Mag-Ox 400 mg Tablet] 400 mg PO DAILY 01/15/19 Potassium Chloride [K-Tab ER] 20 meq PO BID 01/15/19 Fluticasone Propion/Salmeterol [Wixela 250-50 Inhub] 1 each IH Q12 02/22/19 Apixaban [Eliquis 5 mg Tablet] 5 mg PO BID #30 tablet 02/26/19 Atorvastatin Calcium [Lipitor 20 mg Tablet] 20 mg PO QHS #15 tablet 02/26/19 Folic Acid 1 mg PO DAILY 03/01/19 Omeprazole 20 mg PO BID 03/01/19 Thiamine HCl [Vitamin B-1] 250 mg PO DAILY 03/01/19 Venlafaxine HCl ER [Effexor Xr 37.5 mg Cap.sr] 37.5 mg PO QHS 03/01/19 Gabapentin [Neurontin 300 mg Capsule] 300 mg PO BID #6 capsule 03/06/19 Clonidine HCl [Catapres 0.1 mg Tablet] 0.1 mg PO Q12 03/12/19 Diltiazem HCl [Diltiazem 24Hr ER] 240 mg PO DAILY 03/12/19 Ibuprofen [Motrin 600 mg Tablet] 600 mg PO TID 03/12/19 Metoprolol Succinate [Toprol Xl 25 mg Tab.sr] 25 mg PO DAILY 03/12/19 Levofloxacin [Levaquin 500 mg Tablet] 500 mg PO DAILY 3 Days #3 tablet 03/16/19 Allergies/Adverse Reactions: No Known Allergies Allergy (Verified 07/28/19 20:32) Review of Systems Constitutional: ABSENT: chills, fever(s), headache(s), weight gain, weight loss Eyes: ABSENT: visual disturbances Ears: ABSENT: hearing changes Cardiovascular: PRESENT: palpitations. ABSENT: chest pain, dyspnea on exertion, edema, orthropnea Respiratory: ABSENT: cough, hemoptysis Gastrointestinal: ABSENT: abdominal pain, constipation, diarrhea, hematemesis, hematochezia, nausea, vomiting Genitourinary: ABSENT: dysuria, hematuria Musculoskeletal: ABSENT: joint swelling Integumentary: ABSENT: rash, wounds Neurological: ABSENT: abnormal gait, abnormal speech, confusion, dizziness, focal weakness, syncope Psychiatric: ABSENT: anxiety, depression, homidical ideation, suicidal ideation Endocrine: ABSENT: cold intolerance, heat intolerance, polydipsia, polyuria Hematologic/Lymphatic: ABSENT: easy bleeding, easy bruising Physical Exam Vital Signs: Temp Pulse Resp BP Pulse Ox 97.9 F 99 20 133/86 H 99 07/29/19 02:30 07/29/19 03:00 07/29/19 02:30 07/29/19 03:00 07/29/19 02:30 Intake & Output 07/27/19 07/28/19 07/29/19 11:59 11:59 11:59 Intake Total 1999 Balance 2000 Weight 99.9 kg General appearance: PRESENT: cooperative, disheveled, morbidly obese, severe distress, well-developed, well-nourished Head exam: PRESENT: atraumatic, normocephalic Eye exam: PRESENT: conjunctiva pink, EOMI, PERRLA. ABSENT: scleral icterus Ear exam: PRESENT: normal external ear exam Mouth exam: PRESENT: moist, tongue midline Neck exam: ABSENT: carotid bruit, JVD, lymphadenopathy, thyromegaly Respiratory exam: PRESENT: crackles, symmetrical, tachypnea. ABSENT: rhonchi, stridor Cardiovascular exam: PRESENT: irregular rhythm, +S1, +S2, tachycardia Pulses: PRESENT: normal dorsalis pedis pul Vascular exam: PRESENT: normal capillary refill GI/Abdominal exam: PRESENT: normal bowel sounds, soft. ABSENT: distended, guarding, mass, organolmegaly, rebound, tenderness Rectal exam: PRESENT: deferred Extremities exam: PRESENT: full ROM. ABSENT: calf tenderness, clubbing, pedal edema Neurological exam: PRESENT: alert, awake, oriented to person, oriented to place, oriented to time, CN II-XII grossly intact Psychiatric exam: PRESENT: agitated, anxious, unusual affect Skin exam: PRESENT: dry, intact, warm. ABSENT: cyanosis, rash Results Laboratory Results: 07/28/19 21:32 07/28/19 21:32 07/28/19 07/28/19 07/28/19 21:32 21:32 21:32 WBC 6.9 RBC 3.03 L Hgb 10.6 L Hct 30.9 L MCV 102 H MCH 34.8 H MCHC 34.1 RDW 15.4 H Plt Count 131 L Seg Neutrophils % 76.9 Sodium 136.4 L Potassium 5.9 H Chloride 109 H Carbon Dioxide 19 L Anion Gap 8 BUN 24 H Creatinine 1.87 H Est GFR ( Amer) 35 L Glucose 94 Calcium 9.2 Phosphorus 3.1 Magnesium 1.6 Total Bilirubin 1.2 AST 43 H Alkaline Phosphatase 188 H Total Protein 7.7 Albumin 4.1 07/28/19 21:32 Troponin I < 0.012 Assessment and Plan - Diagnosis (1) Hyperkalemia Is this a current diagnosis for this admission?: Yes Plan: Complicated by peak T waves, p.o. lactulose, IV calcium, albuterol, insulin. Follow-up chemistry. (2) Alcohol withdrawal Qualifiers: Complication of substance-induced condition: uncomplicated Qualified Code(s): F10.230 - Alcohol dependence with withdrawal, uncomplicated Is this a current diagnosis for this admission?: Yes Plan: Seizure precautions, thiamine, folate, Valium scheduled, Ativan as needed. Multiple attempts for referral to outpatient alcohol rehab unsuccessful. Yet discharge planning reconsulted. (3) Atrial fibrillation with RVR Is this a current diagnosis for this admission?: Yes Plan: IV Cardizem, resume outpatient clonidine - Time Time Spent with patient: 25-34 minutes - Inpatient Certification Medical Necessity: Need Close Monitoring Due to Risk of Patient Decompensation
[2019-07-29] MEDS: CLONIDINE HCL 0.2 MG TABLET PO SCH ×3 (05:32→17:19)
[2019-07-29 06:08] LABS: ABSOLUTE LYMPHOCYTES (AUTO) 1.2 10^3/uL (0.5-4.7); ABSOLUTE MONOCYTES (AUTO) 0.6 10^3/uL (0.1-1.4); ABSOLUTE NEUT (AUTO) 2.9 10^3/uL (1.7-8.2); BASOPHILS % (AUTO) 0.7 % (0-2); EOSINOPHILS % (AUTO) 0.9 % (0-6); HEMOGLOBIN 9.9 g/dL (12.0-15.5); LYMPHOCYTES % (AUTO) 25.5 % (13-45); MEAN CORPUSCULAR HEMOGLOBIN 35.2 pg (27.0-33.4); MEAN CORPUSCULAR HGB CONC 34.1 g/dL (32.0-36.0); MEAN CORPUSCULAR VOLUME 103 fl (80-97); PLATELET COUNT 117 10^3/uL (150-450); RED BLOOD COUNT 2.81 10^6/uL (3.72-5.28); RED CELL DISTRIBUTION WIDTH 15.3 % (11.5-14.0); SEGMENTED NEUTROPHILS % (AUTO) 59.9 % (42-78); TOTAL CELLS COUNTED % (AUTO) 100 %; WHITE BLOOD COUNT 4.9 10^3/uL (4.0-10.5)
[2019-07-29 06:18] LABS: ANION GAP 8 (5-19); BLOOD UREA NITROGEN 20 mg/dL (7-20); CALCIUM 8.5 mg/dL (8.4-10.2); CARBON DIOXIDE 19 mmol/L (22-30); CHLORIDE 111 mmol/L (98-107); GLUCOSE 88 mg/dL (75-110)
[2019-07-29 06:41] LABS: POTASSIUM 4.9 mmol/L (3.6-5.0)
--- NOTE | 2019-07-29 08:04 | EKG REPORT ---
SEVERITY:- ABNORMAL ECG - ATRIAL FIBRILLATION NONSPECIFIC T ABNORMALITIES, INFERIOR LEADS : Confirmed by: Tamara Boyer MD 29-Jul-2019 08:04:11
[2019-07-29] MEDS: DOCUSATE SODIUM 100 MG CAPSULE PO SCH ×2 (09:26→17:20)
[2019-07-29] MEDS: DILTIAZEM HCL 30 MG TABLET PO SCH ×2 (12:02→17:19)
[2019-07-29] MEDS: NYSTATIN CREAM 15 GM TP SCH ×2 (13:33→22:25)
--- NOTE | 2019-07-29 13:49 | PDOC PROGRESS REPORT ---
Subjective Progress Note for:: 07/29/19 Subjective:: No adverse events overnight. No new complaints. Monitor closely for signs of withdrawal. Vital signs been stable. We are going to transition her to oral Cardizem today. Reason For Visit: AFIB ALCOHOL WITHDRAW HYPERKALEMIA Physical Exam Vital Signs: Temp Pulse Resp BP Pulse Ox 98.5 F 89 20 91/59 L 98 07/29/19 07:51 07/29/19 13:18 07/29/19 04:00 07/29/19 13:18 07/29/19 04:00 Intake & Output 07/28/19 07/29/19 07/30/19 06:59 06:59 06:59 Intake Total 2251.2 120 Output Total 275 Balance 1976.2 120 Weight 99.9 kg 99.9 kg General appearance: PRESENT: no acute distress, cooperative, disheveled, morb idly obese Respiratory exam: PRESENT: clear to auscultation thomas, symmetrical, unlabored. ABSENT: accessory muscle use, chest wall tenderness, crackles, prolonged expiratory phas, rhonchi, tachypnea Cardiovascular exam: PRESENT: irregular rhythm, +S1, +S2 Pulses: PRESENT: normal carotid pulses Vascular exam: PRESENT: normal capillary refill GI/Abdominal exam: PRESENT: normal bowel sounds, soft. ABSENT: distended, guarding, rebound, tenderness Extremities exam: ABSENT: clubbing, pedal edema Musculoskeletal exam: PRESENT: normal inspection. ABSENT: deformity Neurological exam: PRESENT: alert, awake, oriented to person, oriented to place, oriented to situation Psychiatric exam: PRESENT: flat affect Skin exam: PRESENT: dry, warm Results Laboratory Results: 07/29/19 05:10 07/29/19 05:10 07/28/19 07/28/19 07/28/19 21:32 21:32 21:32 WBC 6.9 RBC 3.03 L Hgb 10.6 L Hct 30.9 L MCV 102 H MCH 34.8 H MCHC 34.1 RDW 15.4 H Plt Count 131 L Seg Neutrophils % 76.9 Sodium 136.4 L Potassium 5.9 H Chloride 109 H Carbon Dioxide 19 L Anion Gap 8 BUN 24 H Creatinine 1.87 H Est GFR ( Amer) 35 L Glucose 94 Calcium 9.2 Phosphorus 3.1 Magnesium 1.6 Total Bilirubin 1.2 AST 43 H Alkaline Phosphatase 188 H Total Protein 7.7 Albumin 4.1 07/29/19 07/29/19 05:10 05:10 WBC 4.9 RBC 2.81 L Hgb 9.9 L Hct 29.0 L MCV 103 H MCH 35.2 H MCHC 34.1 RDW 15.3 H Plt Count 117 L Seg Neutrophils % 59.9 Sodium 137.6 Potassium 4.9 D Chloride 111 H Carbon Dioxide 19 L Anion Gap 8 BUN 20 Creatinine 1.36 H Est GFR ( Amer) 50 L Glucose 88 Calcium 8.5 Phosphorus Magnesium Total Bilirubin AST Alkaline Phosphatase Total Protein Albumin 07/28/19 21:32 Troponin I < 0.012 Assessment and Plan - Diagnosis (1) Atrial fibrillation with RVR Is this a current diagnosis for this admission?: Yes Plan: She has been switched over to oral Cardizem off the drip. She supposedly takes Eliquis at home, which we will continue. She also has metoprolol listed as a home medication. If her blood pressure tolerates, we will resume that. 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 Is this a current diagnosis for this admission?: Yes Plan: Chronic, hemoglobin is stable in her typical range (6) COPD (chronic obstructive pulmonary disease) Qualifiers: COPD type: emphysema Emphysema type: centrilobular Qualified Code(s): J43.2 - Centrilobular emphysema Is this a current diagnosis for this admission?: Yes Plan: Not acutely exacerbated (7) Hyperlipidemia Qualifiers: Hyperlipidemia type: mixed hyperlipidemia Qualified Code(s): E78.2 - Mixed hyperlipidemia Is this a current diagnosis for this admission?: Yes Plan: We will continue her statin (8) Hypertension Qualifiers: Hypertension type: essential hypertension Qualified Code(s): I10 - Essential (primary) hypertension Is this a current diagnosis for this admission?: Yes Plan: A lot of her home meds are on hold right now because of her blood pressure - Time Time Spent with patient: 25-34 minutes
[2019-07-29] MEDS ORDERED: NYSTATIN CREAM 15 GM ONE (22:21)
[2019-07-30] MEDS: DILTIAZEM HCL 30 MG TABLET PO SCH ×2 (00:24→05:54)
[2019-07-30] MEDS: CLONIDINE HCL 0.2 MG TABLET PO SCH ×2 (00:24→05:55)
[2019-07-30] MEDS: DIAZEPAM INJ 10 MG/2 ML DISP.SYRIN IV SCH (05:55)
[2019-07-30] MEDS ORDERED: (PENDING PHARMACY ID) (Albuterol Sulfate 2 PUFF) IH PRN (07:21)
[2019-07-30] MEDS ORDERED: ALBUTEROL SULFATE HFA (90 MCG/PUFF) 200 PUFF/8.5 GM MDI IH PRN (08:12)
[2019-07-30] MEDS: APIXABAN 5 MG TABLET PO SCH ×2 (09:54→17:27)
[2019-07-30] MEDS: THIAMINE HCL 100 MG, FOLIC ACID 1 MG in NORMAL SALINE 250 ML IV SCH (09:54)
[2019-07-30] MEDS: DILTIAZEM HCL 120 MG CAP.SR.24H PO SCH (09:54)
[2019-07-30] MEDS: METOPROLOL SUCCINATE 25 MG TAB.SR.24H PO SCH ×2 (09:54→21:35)
[2019-07-30] MEDS: NYSTATIN CREAM 15 GM TP SCH ×2 (09:54→22:32)
[2019-07-30] MEDS: FOLIC ACID 1 MG TABLET PO SCH (09:54)
[2019-07-30] MEDS: MAGNESIUM OXIDE 400 MG TABLET PO SCH (09:54)
[2019-07-30] MEDS: DOCUSATE SODIUM 100 MG CAPSULE PO SCH ×2 (09:55→17:12)
[2019-07-30] MEDS ORDERED: DIAZEPAM 5 MG TABLET PO SCH (10:00)
--- NOTE | 2019-07-30 12:10 | CDI QUERY ---
CDI Query CDI Review: Dear Provider: To better reflect your patients severity of illness, morbidity, and resource utilization Please specify and document in the Progress Notes and Discharge Summary if you are monitoring / treating / evaluating any of the following conditions: Query Clinical indicators Please clarify and document if there is an associated diagnosis for the patients BMI: Morbid Obesity / BMI 41.6 Obesity with BMI 41.6 Other Undetermined FABIANA HEAD is a 48 year old female with a past medical history of severe alcoholism, alcohol withdrawal seizures, paroxysmal atrial fibrillation without anticoagulation and tobacco dependence. General appearance: PRESENT: no acute distress, cooperative, disheveled, morbidly obese Height: 5 ft 1 in Weight: 101.6 kg (223.52 lbs) BMI: 41.6 The terms probable, suspected, likely, possible or still to be ruled out may be used if you are unable to determine the exact nature of a condition. Thank you for your consideration, Clinical Documentation Physician Advisors GUY Lockett RN, BSN RN Ana
[2019-07-30] MEDS: ACETAMINOPHEN 325 MG TABLET PO PRN ×2 (13:53→19:33)
--- NOTE | 2019-07-30 15:05 | PDOC PROGRESS REPORT ---
Subjective Progress Note for:: 07/30/19 Subjective:: No adverse events overnight. No new complaints. She got tachycardic whenever she would get up to go to the bathroom. It would take her a while before she settled back down. No chest pain or shortness of breath. No signs of active withdrawal. Reason For Visit: AFIB ALCOHOL WITHDRAW HYPERKALEMIA Physical Exam Vital Signs: Temp Pulse Resp BP Pulse Ox 97.9 F 72 18 103/67 99 07/30/19 11:08 07/30/19 14:00 07/30/19 11:08 07/30/19 11:08 07/30/19 11:08 Intake & Output 07/29/19 07/30/19 07/31/19 06:59 06:59 06:59 Intake Total 2251.2 1410 251.2 Output Total 275 1200 Balance 1976.2 210 251.2 Weight 99.9 kg 101.6 kg General appearance: PRESENT: no acute distress, cooperative, disheveled, morbidly obese Respiratory exam: PRESENT: clear to auscultation thomas, symmetrical, unlabored. ABSENT: accessory muscle use, chest wall tenderness, crackles, prolonged expiratory phas, rhonchi, tachypnea Cardiovascular exam: PRESENT: irregular rhythm, +S1, +S2 Pulses: PRESENT: normal carotid pulses Vascular exam: PRESENT: normal capillary refill GI/Abdominal exam: PRESENT: normal bowel sounds, soft. ABSENT: distended, guarding, rebound, tenderness Extremities exam: ABSENT: clubbing, pedal edema Musculoskeletal exam: PRESENT: normal inspection. ABSENT: deformity Neurological exam: PRESENT: alert, awake, oriented to person, oriented to place, oriented to situation Psychiatric exam: PRESENT: flat affect Skin exam: PRESENT: dry, warm Results Laboratory Results: 07/29/19 05:10 07/29/19 05:10 07/28/19 21:32 Troponin I < 0.012 Assessment and Plan - Diagnosis (1) Atrial fibrillation with RVR Is this a current diagnosis for this admission?: Yes Plan: Chronic atrial fibrillation. Currently on oral metoprolol and diltiazem. Ant icoagulated on Eliquis. She gets tachycardic when she gets up to do something like to the bathroom. Will monitor her blood pressure and attempt to adjust her metoprolol accordingly. (2) Alcohol abuse Is this a current diagnosis for this admission?: Yes Plan: She is not going to stop drinking, so we stopped her Valium that was scheduled and will give her a beer with each meal. We kept the as needed Ativan available. (3) ALEJA (acute kidney injury) Is this a current diagnosis for this admission?: Yes Plan: Improved with IV fluids (4) Hyperkalemia Is this a current diagnosis for this admission?: Yes Plan: Improved with IV fluids, now resolved (5) Anemia Qualifiers: Anemia type: folate deficiency Folate deficiency anemia type: dietary Qualified Code(s): D52.0 - Dietary folate deficiency anemia Is this a current diagnosis for this admission?: Yes Plan: Chronic, hemoglobin is stable in her typical range (6) COPD (chronic obstructive pulmonary disease) Qualifiers: COPD type: emphysema Emphysema type: centrilobular Qualified Code(s): J43.2 - Centrilobular emphysema Is this a current diagnosis for this admission?: Yes Plan: Not acutely exacerbated (7) Hyperlipidemia Qualifiers: Hyperlipidemia type: mixed hyperlipidemia Qualified Code(s): E78.2 - Mixed hyperlipidemia Is this a current diagnosis for this admission?: Yes Plan: We will continue her statin (8) Hypertension Qualifiers: Hypertension type: essential hypertension Qualified Code(s): I10 - Essential (primary) hypertension Is this a current diagnosis for this admission?: Yes Plan: A lot of her home meds are on hold right now because of her blood pressure (9) Morbid obesity with BMI of 40.0-44.9, adult Is this a current diagnosis for this admission?: Yes Plan: Have strongly encouraged lifestyle and dietary modification - Time Time Spent with patient: 25-34 minutes
[2019-07-30] MEDS: PANTOPRAZOLE SODIUM 40 MG TABLET.DR PO SCH (16:04)
[2019-07-30] MEDS: BEER PO SCH ×2 (16:05→21:35)
[2019-07-30] MEDS ORDERED: ATORVASTATIN CALCIUM 20 MG TABLET PO SCH (22:00)
[2019-07-30] MEDS ORDERED: VENLAFAXINE HCL 37.5 MG CAP.SR.24H PO SCH (22:00)
[2019-07-31] MEDS ORDERED: LEVOTHYROXINE SODIUM 0.088 MG TABLET PO SCH (06:00)
[2019-07-31] MEDS: PANTOPRAZOLE SODIUM 40 MG TABLET.DR PO SCH (07:59)
[2019-07-31] MEDS: BEER PO SCH ×3 (08:00→11:32)
[2019-07-31] MEDS: METOPROLOL SUCCINATE 25 MG TAB.SR.24H PO SCH (10:42)
[2019-07-31] MEDS: DILTIAZEM HCL 120 MG CAP.SR.24H PO SCH (10:42)
[2019-07-31] MEDS: FOLIC ACID 1 MG TABLET PO SCH (10:42)
[2019-07-31] MEDS: MAGNESIUM OXIDE 400 MG TABLET PO SCH (10:42)
[2019-07-31] MEDS: APIXABAN 5 MG TABLET PO SCH (10:42)
[2019-07-31] MEDS: DOCUSATE SODIUM 100 MG CAPSULE PO SCH (10:42)
[2019-07-31] MEDS: THIAMINE HCL 100 MG, FOLIC ACID 1 MG in NORMAL SALINE 250 ML IV SCH (10:42)
[2019-07-31] MEDS: NYSTATIN CREAM 15 GM TP SCH (10:47)
--- NOTE | 2019-07-31 11:53 | PDOC DISCHARGE SUMMARY ---
Impression - Admit/DC Date/PCP Admission Date/Primary Care Provider: 07/29/19 00:06 BERNIE SAVAGE MD Discharge Date: 07/31/19 - Discharge Diagnosis (1) Atrial fibrillation with RVR Is this a current diagnosis for this admission?: Yes (2) Alcohol abuse Is this a current diagnosis for this admission?: Yes (3) ALEJA (acute kidney injury) Is this a current diagnosis for this admission?: Yes (4) Hyperkalemia Is this a current diagnosis for this admission?: Yes (5) Anemia Is this a current diagnosis for this admission?: Yes (6) COPD (chronic obstructive pulmonary disease) Is this a current diagnosis for this admission?: Yes (7) Hyperlipidemia Is this a current diagnosis for this admission?: Yes (8) Hypertension Is this a current diagnosis for this admission?: Yes (9) Morbid obesity with BMI of 40.0-44.9, adult Is this a current diagnosis for this admission?: Yes - Additional Information Resuscitation Status: Full Code Discharge Diet: Cardiac Discharge Activity: Activity As Tolerated, No Driving Referrals: BERNIE SAVAGE MD [Primary Care Provider] - Follow up as needed Home Medications: Albuterol Sulfate [Proair HFA Inhalation Aerosol 8.5 gm MDI] 2 puff IH Q4HP PRN 01/15/19 Levothyroxine Sodium 88 mcg PO Q6AM 01/15/19 Magnesium Oxide [Mag-Ox 400 mg Tablet] 400 mg PO DAILY 01/15/19 Fluticasone Propion/Salmeterol [Wixela 250-50 Inhub] 1 each IH Q12 02/22/19 Apixaban [Eliquis 5 mg Tablet] 5 mg PO BID #30 tablet 02/26/19 Atorvastatin Calcium [Lipitor 20 mg Tablet] 20 mg PO QHS #15 tablet 02/26/19 Folic Acid 1 mg PO DAILY 03/01/19 Omeprazole 40 mg PO BID 03/01/19 Venlafaxine HCl ER [Effexor Xr 37.5 mg Cap.sr] 37.5 mg PO QHS 03/01/19 Diltiazem HCl [Diltiazem 24Hr ER] 240 mg PO DAILY 03/12/19 Metoprolol Succinate [Toprol Xl 25 mg Tab.sr] 25 mg PO Q12 03/12/19 Albuterol Sulfate [Ventolin 0.083% Neb 2.5 mg/3 mL Ampul] 1 vial NEB Q6HP PRN 07/29/19 History of Present Illiness History of Present Illness: FABIANA HEAD is a 48 year old female with a past medical history of severe alcoholism, alcohol withdrawal seizures, paroxysmal atrial fibrillation without anticoagulation and tobacco dependence. She presents with hyperkalemia with peaked T waves, macrocytic anemia, thrombocytopenia, atrial fibrillation with RVR and tremor stating her last drink was about 24 hours ago. She started on IV Cardizem and referred to the hospitalist for admission. Hospital Course Hospital Course: Her nausea and vomiting resolved and she was eating without difficulty. We got her heart rate under control with oral medications. We were giving her benzodiazepines but she did not plan on stopping drinking, so we gave her a beer with each meal and her heart rate became very easy to control. We put her back on her home medications. We strongly encouraged her there when alcohol detox and seek a program of abstinence. Her labs and examination were reassuring and she was discharged in stable condition. Physical Exam Vital Signs: Temp Pulse Resp BP Pulse Ox 97.4 F 99 20 124/78 98 07/31/19 10:30 07/31/19 10:30 07/31/19 10:30 07/31/19 10:30 07/31/19 10:30 Intake & Output 07/30/19 07/31/19 08/01/19 06:59 06:59 06:59 Intake Total 1410 2067.2 Output Total 1200 1450 Balance 210 617.2 Weight 101.6 kg 100.9 kg General appearance: PRESENT: no acute distress, cooperative, disheveled, morbidly obese Respiratory exam: PRESENT: clear to auscultation thomas, symmetrical, unlabored. ABSENT: accessory muscle use, chest wall tenderness, crackles, prolonged expirat ory phas, rhonchi, tachypnea Cardiovascular exam: PRESENT: irregular rhythm, +S1, +S2 Pulses: PRESENT: normal carotid pulses Vascular exam: PRESENT: normal capillary refill GI/Abdominal exam: PRESENT: normal bowel sounds, soft. ABSENT: distended, guarding, rebound, tenderness Extremities exam: ABSENT: clubbing, pedal edema Musculoskeletal exam: PRESENT: normal inspection. ABSENT: deformity Neurological exam: PRESENT: alert, awake, oriented to person, oriented to place, oriented to situation Psychiatric exam: PRESENT: flat affect Skin exam: PRESENT: dry, warm Results Laboratory Results: WBC 4.9 10^3/uL (4.0-10.5) 07/29/19 05:10 RBC 2.81 10^6/uL (3.72-5.28) L 07/29/19 05:10 Hgb 9.9 g/dL (12.0-15.5) L 07/29/19 05:10 Hct 29.0 % (36.0-47.0) L 07/29/19 05:10 MCV 103 fl (80-97) H 07/29/19 05:10 MCH 35.2 pg (27.0-33.4) H 07/29/19 05:10 MCHC 34.1 g/dL (32.0-36.0) 07/29/19 05:10 RDW 15.3 % (11.5-14.0) H 07/29/19 05:10 Plt Count 117 10^3/uL (150-450) L 07/29/19 05:10 Lymph % (Auto) 25.5 % (13-45) 07/29/19 05:10 [place] % (Auto) 13.0 % (3-13) 07/29/19 05:10 Eos % (Auto) 0.9 % (0-6) 07/29/19 05:10 Baso % (Auto) 0.7 % (0-2) 07/29/19 05:10 Absolute Neuts (auto) 2.9 10^3/uL (1.7-8.2) 07/29/19 05:10 Absolute Lymphs (auto) 1.2 10^3/uL (0.5-4.7) 07/29/19 05:10 Absolute Monos (auto) 0.6 10^3/uL (0.1-1.4) 07/29/19 05:10 Absolute Eos (auto) 0.0 10^3/uL (0.0-0.6) 07/29/19 05:10 Absolute Basos (auto) 0.0 10^3/uL (0.0-0.2) 07/29/19 05:10 Seg Neutrophils % 59.9 % (42-78) 07/29/19 05:10 Sodium 137.6 mmol/L (137-145) 07/29/19 05:10 Potassium 4.9 mmol/L (3.6-5.0) D 07/29/19 05:10 Chloride 111 mmol/L (98-107) H 07/29/19 05:10 Carbon Dioxide 19 mmol/L (22-30) L 07/29/19 05:10 Anion Gap 8 (5-19) 07/29/19 05:10 BUN 20 mg/dL (7-20) 07/29/19 05:10 Creatinine 1.36 mg/dL (0.52-1.25) H 07/29/19 05:10 Est GFR ( Amer) 50 (>60) L 07/29/19 05:10 Est GFR (MDRD) Non-Af 41 (>60) L 07/29/19 05:10 Glucose 88 mg/dL (75-110) 07/29/19 05:10 Calcium 8.5 mg/dL (8.4-10.2) 07/29/19 05:10 Phosphorus 3.1 mg/dL (2.5-4.5) 07/28/19 21:32 Magnesium 1.6 mg/dL (1.6-2.3) 07/28/19 21:32 Total Bilirubin 1.2 mg/dL (0.2-1.3) 07/28/19 21:32 Direct Bilirubin 0.1 mg/dL (0.0-0.4) 07/28/19 21:32 Neonat Total Bilirubin Not Reportable 07/28/19 21:32 Neonat Direct Bilirubin Not Reportable 07/28/19 21:32 Neonat Indirect Bili Not Reportable 07/28/19 21:32 AST 43 U/L (14-36) H 07/28/19 21:32 ALT 46 U/L (<35) H 07/28/19 21:32 Alkaline Phosphatase 188 U/L (38-126) H 07/28/19 21:32 Troponin I < 0.012 ng/mL 07/28/19 21:32 Total Protein 7.7 g/dL (6.3-8.2) 07/28/19 21:32 Albumin 4.1 g/dL (3.5-5.0) 07/28/19 21:32 07/28/19 21:32 Troponin I < 0.012 Plan Time Spent: Greater than 30 Minutes Stroke Is this a Stroke Patient?: No Acute Heart Failure - Is this a Heart Failure Patient?: No
[2019-07-31 12:29] VITALS: BP 136/95
== END 2019-07-31 12:45 | disposition home or self-care (01) | DRG 897 ==
LOC: ER 20:18 → EH 07-29 00:06 → 3N 07-29 02:27
PROVIDERS: ADMIT Internal Medicine; ATTEND Family Medicine
DX: F10.230 Alcohol dependence with withdrawal, uncomplicated (principal); Z68.43 Body mass index [BMI] 50.0-59.9, adult; I48.21 Permanent atrial fibrillation; E87.5 Hyperkalemia; D69.59 Other secondary thrombocytopenia; E66.01 Morbid (severe) obesity due to excess calories; D52.0 Dietary folate deficiency anemia; J43.2 Centrilobular emphysema; E03.9 Hypothyroidism, unspecified; K21.9 Gastro-esophageal reflux disease without esophagitis; F31.9 Bipolar disorder, unspecified; I25.2 Old myocardial infarction; Z90.49 Acquired absence of other specified parts of digestive tract; Z79.51 Long term (current) use of inhaled steroids; Z79.899 Other long term (current) drug therapy; Z79.01 Long term (current) use of anticoagulants
CPT/HCPCS: 36415; 80048; 80053; 83735; 84100; 84484; 85025; 93005; 93010; 96361; 96374; 96375; 99284; J0610; J2060; J3360; J3411; J3490; J7030; J7050

== ENCOUNTER 2019-08-14 17:34 | Inpatient (IN) | payer MEDICARE, MEDICAID ==
--- NOTE | 2019-08-14 17:58 | ER Document Report ---
ED Medical Screen (RME) - General Chief Complaint: Nausea/Vomiting/Diarrhea Stated Complaint: NAUSEA/VOMITING/DIARRHEA Time Seen by Provider: 08/14/19 17:50 Primary Care Provider: BERNIE SAVAGE MD [Primary Care Provider] - Follow up as needed Notes: Patient is a 48-year-old female with a history of alcohol abuse and asthma who presents the emergency department with a chief complaint of shortness of breath, nausea, and diarrhea. She states that her nausea and vomiting started this morning. States that she has not vomited for the past hour. States that her last shot of alcohol was this morning. Exam: Patient tremoring. I have greeted and performed a rapid initial assessment of this patient. A comprehensive ED assessment and evaluation of the patient, analysis of test results and completion of medical decision making process will be conducted by an additional ED providers. TRAVEL OUTSIDE OF THE [place] 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 Denies: Hx Migraine, Hx Parkinson's Disease Endocrine Medical History: Reports: Hx Hypothyroidism. Denies: Hx Diabetes Mellitus Type 1, Hx Diabetes Mellitus Type 2, Hx Hyperthyroidism Renal/ Medical History: Denies: Hx End Stage Renal Disease, Hx Peritoneal Dialysis GI Medical History: Reports: Hx Gastroesophageal Reflux Disease. Denies: Hx Cirrhosis, Hx Crohn's Disease, Hx Hepatitis, Hx Hiatal Hernia, Hx Pancreatitis, Hx Ulcer, Hx Ulcerative Colitis Musculoskeltal Medical History: Denies Hx Arthritis, Denies Hx Fibromyalgia, Reports Hx Musculoskeletal Deformity, Reports Hx Musculoskeletal Trauma Skin Medical History: Denies Hx Eczema, Denies Hx Psoriasis Psychiatric Medical History: Reports: Hx Bipolar Disorder, Hx Depression Denies: Hx Schizophrenia Traumatic Medical History: Reports: Hx Fractures - R. leg. Pt. has a steel debi. Infectious Medical History: Denies: Hx Hepatitis Past Surgical History: Reports: Hx Appendectomy, Hx Cholecystectomy, Hx Orthopedic Surgery - right knee, Hx Tonsillectomy, Hx Tubal Ligation. Denies: Hx Bowel Surgery, Hx Section, Hx Hysterectomy, Hx Mastectomy - Immunizations Hx Diphtheria, Pertussis, Tetanus Vaccination: No Physical Exam - Vital signs Vitals: Pulse Resp BP Pulse Ox 49 L 28 H 94/58 L 95 08/14/19 17:42 08/14/19 17:42 08/14/19 17:42 08/14/19 17:42 Course - Vital Signs Vital signs: Temp Pulse Resp BP Pulse Ox 98.2 F 49 L 28 H 94/58 L 95 08/14/19 17:53 08/14/19 17:42 08/14/19 17:42 08/14/19 17:42 08/14/19 17:42 Doctor's Discharge - Discharge Referrals: BERNIE SAVAGE MD [Primary Care Provider] - Follow up as needed
[2019-08-14] MEDS ORDERED: LORAZEPAM INJ 2 MG/1 ML VIAL IV ONE ×2 (17:59→21:49)
[2019-08-14 19:25] LABS: ABSOLUTE BASOPHILS # (AUTO) 0.1 10^3/uL (0.0-0.2); ABSOLUTE LYMPHOCYTES (AUTO) 0.9 10^3/uL (0.5-4.7); ABSOLUTE MONOCYTES (AUTO) 1.3 10^3/uL (0.1-1.4); ABSOLUTE NEUT (AUTO) 9.3 10^3/uL (1.7-8.2); BASOPHILS % (AUTO) 0.5 % (0-2); HEMATOCRIT 30.2 % (36.0-47.0); HEMOGLOBIN 9.8 g/dL (12.0-15.5); LYMPHOCYTES % (AUTO) 8.1 % (13-45); MEAN CORPUSCULAR HEMOGLOBIN 33.7 pg (27.0-33.4); MEAN CORPUSCULAR HGB CONC 32.4 g/dL (32.0-36.0); MEAN CORPUSCULAR VOLUME 104 fl (80-97); MONOCYTES % (AUTO) 11.6 % (3-13); PLATELET COUNT 231 10^3/uL (150-450); RED CELL DISTRIBUTION WIDTH 14.8 % (11.5-14.0); SEGMENTED NEUTROPHILS % (AUTO) 79.8 % (42-78); TOTAL CELLS COUNTED % (AUTO) 100 %; WHITE BLOOD COUNT 11.7 10^3/uL (4.0-10.5)
[2019-08-14 20:46] LABS: ALBUMIN 3.7 g/dL (3.5-5.0); ALCOHOL 11 mg/dL (NONE DETECTED); ALKALINE PHOSPHATASE 186 U/L (38-126); ANION GAP 16 (5-19); BILIRUBIN,DIRECT 0.3 mg/dL (0.0-0.4); BILIRUBIN,TOTAL 0.8 mg/dL (0.2-1.3); BLOOD UREA NITROGEN 47 mg/dL (7-20); CALCIUM 7.8 mg/dL (8.4-10.2); CHLORIDE 111 mmol/L (98-107); GLUCOSE 105 mg/dL (75-110)
[2019-08-14 21:11] LABS: ACETAMINOPHEN < 10 ug/mL (10-30); ASPARTATE AMINO TRANSFERASE 1993 U/L (14-36); SALICYLATE < 1.0 mg/dL (2.0-20.0)
[2019-08-14 21:17] LABS: CARBON DIOXIDE 10 mmol/L (22-30); POTASSIUM 8.1 mmol/L (3.6-5.0)
[2019-08-14] MEDS ORDERED: DEXTROSE 50%-WATER 25 GM/50 ML DISP.SYRIN IV ONE (21:28)
[2019-08-14] MEDS ORDERED: CALCIUM GLUCONATE 1000 MG/10 ML INJ IV ONE ×2 (21:28→22:16)
[2019-08-14] MEDS ORDERED: INSULIN REG, HUMAN 100 UNIT/ML 3 ML VIAL (PYX) IV ONE (21:28)
[2019-08-14] MEDS: NORMAL SALINE 1000 ML 1,000 ML IV PRN ×2 (22:00→23:22)
--- NOTE | 2019-08-14 22:10 | EKG REPORT ---
SEVERITY:- ABNORMAL ECG - ATRIAL FIBRILLATION VS CAS ESCAPE RHYTHM NONSPECIFIC INTRAVENTRICULAR CONDUCTION DELAY LOW VOLTAGE IN FRONTAL LEADS : Confirmed by: Hudson Alegria 14-Aug-2019 22:09:43
--- NOTE | 2019-08-14 22:12 | ER Document Report ---
ED General - General Chief Complaint: Shortness Of Breath Stated Complaint: NAUSEA/VOMITING/DIARRHEA Time Seen by Provider: 08/14/19 17:50 Primary Care Provider: BERNIE SAVAGE MD [Primary Care Provider] - Follow up as needed TRAVEL OUTSIDE OF THE [place] IN LAST 30 DAYS: No - HPI Notes: Patient is a 48-year-old female who presents to the emergency department for evaluation. She is a poor historian. She states she is had vomiting and diarrhea. She states initially that it was for 2 days, then tells me it started earlier today. Which she cannot tell me is that she was on a "2-day sosa" of drinking. She states that "more days than not" she drinks a gallon of vodka. She denies any history of alcohol withdrawal seizures. She states she does frequently wake with tremors and requiring a drink. She denies any pain at this time. She has had no fevers or chills. She states she did have some shortness of breath earlier, but denies that at this time. She was feeling very shaky. - Related Data Allergies/Adverse Reactions: No Known Allergies Allergy (Verified 07/28/19 20:32) Home Medications: Patient is unsure of any of her medications at this time. Past Medical History - General Information source: Patient - Social History Smoking Status: Never Smoker Chew tobacco use (# tins/day): No Frequency of alcohol use: Heavy Drug Abuse: None Family History: Malignancy - Past Medical History Cardiac Medical History: Reports: Hx Atrial Fibrillation, Hx Heart Attack - at 22 y/o, ephedrine induced, Hx Hypercholesterolemia, Hx Hypertension Denies: Hx Congestive Heart Failure, Hx Coronary Artery Disease, Hx Peripheral Vascular Disease, Hx Pulmonary Embolism, Hx Heart Murmur Pulmonary Medical History: Reports: Hx Asthma, Hx COPD Denies: Hx Bronchitis, Hx Pneumonia, Hx Respiratory Failure, Hx Sleep Apnea, Hx Tuberculosis Neurological Medical History: Reports: Hx Seizures - With alcohol withdrawal. Denies: Hx Migraine, Hx Parkinson's Disease Endocrine Medical History: Reports: Hx Hypothyroidism. Denies: Hx Diabetes Mellitus Type 1, Hx Hyperthyroidism Renal/ Medical History: Reports: Hx Kidney Stones. Denies: Hx End Stage Renal Disease, Hx Peritoneal Dialysis GI Medical History: Reports: Hx Gastroesophageal Reflux Disease. Denies: Hx Cirrhosis, Hx Crohn's Disease, Hx Hepatitis, Hx Hiatal Hernia, Hx Pancreatitis, Hx Ulcer, Hx Ulcerative Colitis Musculoskeletal Medical History: Denies Hx Arthritis, Denies Hx Fibromyalgia, Reports Hx Musculoskeletal Deformity, Reports Hx Musculoskeletal Trauma Skin Medical History: Denies Hx Eczema, Denies Hx Psoriasis Psychiatric Medical History: Reports: Hx Bipolar Disorder, Hx Depression Denies: Hx Schizophrenia Traumatic Medical History: Reports: Hx Fractures - R. leg. Pt. has a steel debi. Infectious Medical History: Denies: Hx Hepatitis Past Surgical History: Reports: Hx Appendectomy, Hx Cholecystectomy, Hx Orthopedic Surgery - right knee, Hx Tonsillectomy, Hx Tubal Ligation. Denies: Hx Bowel Surgery, Hx Section, Hx Hysterectomy, Hx Mastectomy - Immunizations Hx Diphtheria, Pertussis, Tetanus Vaccination: No Hx Pneumococcal Vaccination: 05/05/11 Review of Systems - Review of Systems Constitutional: See HPI Respiratory: See HPI Gastrointestinal: See HPI Neurological/Psychological: No symptoms reported Physical Exam - Vital signs Vitals: Pulse Resp BP Pulse Ox 49 L 28 H 94/58 L 95 08/14/19 17:42 08/14/19 17:42 08/14/19 17:42 08/14/19 17:42 - Notes Notes: This is a 48-year-old female who appears older than her stated age. She is lying in the bed, mildly diaphoretic, mildly tremulous. Head is normocephalic and appears atraumatic, pupils are equal round, reactive to light. Oral mucosa is slightly dry. Uvula is midline. Heart is regular lungs are clear to auscultation bilaterally. Abdomen is soft, diffusely tender without rebound or guarding. Extremities without cyanosis or clubbing. Patient is awake and alert. She is mildly irritable. She is oriented to person, place, time. She has mild tremors. She moves all 4 extremity spontaneously. No gross facial asymmetry. Course - Re-evaluation Re-evalutation: 08/14/19 22:14 Patient presents to the emergency department for evaluation. She was initially seen through triage. When I signed up for the patient, I did review labs, and noted immediately that the patient was severely acidotic, hyperkalemic, and acute renal failure. I immediately ordered calcium, insulin, dextrose. Some time was spent looking for a peripheral line with nursing. She was given 2 L of fluids. I will go ahead and order sodium bicarb fluids as well. This is in hope to continue to shift the potassium intracellularly. Patient was further given Ativan for alcohol withdrawal. She was placed in the trauma room, as QRS complexes were noted to be widened. I will give her another amp of calcium as her heart rate is still in the 40s. 08/15/19 01:28 Patient's heart rate improved, QRS narrowed. She had good urine output. She did require some further Ativan. I did contact ICU for possible admission, they were with a critical patient. Patient continued to be treated with IV fluids, repeat metabolic panel showed some improvement in hyperkalemia, Veltassa ordered. Patient's vital signs currently stable, with a heart rate in the 80s. Her respiratory rate is improved increased slightly, I suspect this is all secondary to alcohol withdrawal. Her blood pressure is normal. I spoke with Chris Salazar, nurse practitioner and winderman overnight, he will accept the patient for further care. - Vital Signs Vital signs: Temp Pulse Resp BP Pulse Ox 97.1 F 49 L 27 H 131/79 H 89 L 08/15/19 00:30 08/14/19 17:42 08/15/19 00:30 08/15/19 00:30 08/15/19 00:30 - Laboratory Result Diagrams: 08/14/19 19:00 08/15/19 00:30 Laboratory results interpreted by me: 08/14/19 08/14/19 08/14/19 19:00 20:15 23:00 WBC 11.7 H RBC 2.90 L Hgb 9.8 L Hct 30.2 L MCV 104 H MCH 33.7 H RDW 14.8 H Lymph % (Auto) 8.1 L Absolute Neuts (auto) 9.3 H Seg Neutrophils % 79.8 H Sodium Potassium 8.1 H* Chloride 111 H Carbon Dioxide 10 L* BUN 47 H Creatinine 8.64 H Est GFR ( Amer) 6 L Est GFR (MDRD) Non-Af 5 L Glucose Calcium 7.8 L AST 1993 H ALT 858 H Alkaline Phosphatase 186 H Urine Protein 30 H Urine Blood MODERATE H Ur Leukocyte Esterase SMALL H Salicylates < 1.0 L Acetaminophen < 10 L 08/15/19 00:30 WBC RBC Hgb Hct MCV MCH RDW Lymph % (Auto) Absolute Neuts (auto) Seg Neutrophils % Sodium 135.8 L Potassium 7.0 H* D Chloride 110 H Carbon Dioxide 14 L BUN 52 H Creatinine 7.35 H Est GFR ( Amer) 7 L Est GFR (MDRD) Non-Af 6 L Glucose 112 H Calcium 8.2 L AST ALT Alkaline Phosphatase Urine Protein Urine Blood Ur Leukocyte Esterase Salicylates Acetaminophen - EKG Interpretation by Me Additional EKG results interpreted by me: 08/15/19 01:33 Junctional/escape rhythm at 49 bpm. Normal axis, IVCD. Peaked T waves globally. No acute ST changes concerning for ischemia or infarction. Critical Care Note - Critical Care Note Total time excluding time spent on procedures (mins): 30 Discharge - Discharge Clinical Impression: Acute renal failure, Hyperkalemia, Alcohol abuse, Nausea and vomiting, Alcohol withdrawal, Metabolic acidosis, Diarrhea Condition: Stable Disposition: ADMITTED INPATIENT Admitting Provider: Yoshi ([employer]) - Chris Salazar NP Unit Admitted: ICU Referrals: BERNIE SAVAGE MD [Primary Care Provider] - Follow up as needed
[2019-08-14] MEDS ORDERED: DEXTROSE 5%-WATER 1000 ML 1,000 ML with SODIUM BICARBONATE 150 MEQ IV PRN ×2 (22:17)
[2019-08-14] MEDS ORDERED: SODIUM BICARBONATE 8.4% INJ 50 MEQ/50 ML DISP.SYRIN ONE (22:28)
[2019-08-14 23:17] LABS: APPEARANCE,URINE CLEAR; BILIRUBIN,URINE NEGATIVE (NEGATIVE); COLOR,URINE YELLOW; GLUCOSE, URINE NEGATIVE (NEGATIVE); KETONES,URINE NEGATIVE (NEGATIVE); LEUKOCYTE ESTERASE,URINE SMALL (NEGATIVE); NITRITE,URINE NEGATIVE (NEGATIVE); PROTEIN,URINE 30 mg/dL (NEGATIVE); URINE SPECIFIC GRAVITY 1.012; UROBILINOGEN,URINE NEGATIVE mg/dL (<2.0)
[2019-08-14 23:32] LABS: URINE AMPHETAMINES SCREEN NEGATIVE; URINE COCAINE SCREEN NEGATIVE; URINE MARIJUANA (THC) SCREEN NEGATIVE; URINE METHADONE SCREEN NEGATIVE; URINE PHENCYCLIDINE SCREEN NEGATIVE
[2019-08-14 23:35] LABS: URINE BARBITURATES SCREEN UNCONFIRMED POSITIVE; URINE BENZODIAZEPINES SCREEN UNCONFIRMED POSITIVE
[2019-08-15 01:16] LABS: ANION GAP 12 (5-19); BLOOD UREA NITROGEN 52 mg/dL (7-20); CALCIUM 8.2 mg/dL (8.4-10.2); CARBON DIOXIDE 14 mmol/L (22-30); CHLORIDE 110 mmol/L (98-107); GLUCOSE 112 mg/dL (75-110)
[2019-08-15] MEDS ORDERED: PATIROMER 8.4 GM SUSP PACKET PO ONE (01:20)
[2019-08-15] MEDS ORDERED: NORMAL SALINE 1000 ML 1,000 ML IV ONE (01:23)
[2019-08-15] MEDS ORDERED: LORAZEPAM INJ 2 MG/1 ML VIAL IV ONE ×2 (01:25→02:33)
[2019-08-15] MEDS ORDERED: DEXTROSE 50%-WATER 25 GM/50 ML DISP.SYRIN IV ONE ×2 (01:29→01:56)
[2019-08-15] MEDS ORDERED: INSULIN REG, HUMAN 100 UNIT/ML 3 ML VIAL (PYX) IV ONE (01:29)
[2019-08-15] MEDS ORDERED: CALCIUM GLUCONATE 1000 MG/10 ML INJ IV ONE (01:29)
[2019-08-15] MEDS ORDERED: PATIROMER 8.4 GM SUSP PACKET ONE (01:53)
--- NOTE | 2019-08-15 02:03 | RADIOLOGY REPORT (SQ) ---
EXAM DESCRIPTION: [facility]: XR CHEST 1 VIEW CLINICAL HISTORY: 48 years Female; r/o infiltrate given complaint shortness of breath; COMPARISON: 03/12/2019 FINDINGS: Lungs: Lungs are clear, with no focal infiltrate, pneumothorax, or pleural effusion. Mediastinum: Mediastinum is within normal limits for this positioning. Bones: Bony structures are unremarkable. IMPRESSION: 1. No acute pulmonary findings.
[2019-08-15 04:06] LABS: ALBUMIN 3.4 g/dL (3.5-5.0); ALKALINE PHOSPHATASE 165 U/L (38-126); ANION GAP 10 (5-19); BILIRUBIN,DIRECT 0.1 mg/dL (0.0-0.4); BILIRUBIN,TOTAL 0.7 mg/dL (0.2-1.3); BLOOD UREA NITROGEN 48 mg/dL (7-20); C-REACTIVE PROTEIN 30.9 mg/L (<10.0); CALCIUM 8.6 mg/dL (8.4-10.2); CARBON DIOXIDE 18 mmol/L (22-30); CHLORIDE 109 mmol/L (98-107); GLUCOSE 118 mg/dL (75-110); TOTAL PROTEIN 6.5 g/dL (6.3-8.2)
[2019-08-15 04:17] LABS: ASPARTATE AMINO TRANSFERASE 1463 U/L (14-36)
[2019-08-15] MEDS ORDERED: MAGNESIUM SULFATE/D5W 1 GM/100 ML RTUPB IV ONE (04:36)
[2019-08-15] MEDS: MAGNESIUM SULFATE/D5W 1 GM/100 ML RTUPB IV SCH ×4 (04:45→08:22)
[2019-08-15] MEDS: HEPARIN SOD (PORCINE) 5,000 UNIT/ML 1 ML VIAL SUBCUT SCH ×3 (06:24→21:25)
[2019-08-15] MEDS ORDERED: CEFTRIAXONE SODIUM 2,000 MG in DEXTROSE 5%-WATER 100 ML IV SCH (07:30)
[2019-08-15] MEDS ORDERED: LORAZEPAM INJ 2 MG/1 ML VIAL IV PRN (07:36)
[2019-08-15] MEDS ORDERED: CEFTRIAXONE INJ 1000 MG VIAL IM ONE (07:39)
[2019-08-15] MEDS ORDERED: THIAMINE HCL 200 MG in NORMAL SALINE 100 ML IV SCH ×2 (08:00→10:00)
[2019-08-15 08:26] LABS: ANION GAP 8 (5-19); BLOOD UREA NITROGEN 45 mg/dL (7-20); CALCIUM 8.9 mg/dL (8.4-10.2); CARBON DIOXIDE 20 mmol/L (22-30); CHLORIDE 109 mmol/L (98-107); GLUCOSE 123 mg/dL (75-110)
[2019-08-15] MEDS ORDERED: FOLIC ACID INJ 5 MG/1 ML 10 ML VIAL IV SCH (10:00)
[2019-08-15] MEDS: THIAMINE HCL 200 MG in NORMAL SALINE 50 ML IV SCH ×2 (10:30→17:01)
--- NOTE | 2019-08-15 10:37 | PDOC CRITICAL CARE PROG REPORT ---
General Date:: 08/15/19 ICU Day:: 1 Hospital Day:: 1 Resuscitation Status: Full Code Events in the past 12 to 24 Hours:: Patient was admitted to the ICU overnight for hyperkalemia, acute renal failure, alcohol withdrawals, and suspected COVID-19 infection. Patient's initial potassium was 8.1 and creatinine was 8.64. She also had peaked T waves noted on her initial twelve-lead EKG. In the emergency department, the patient was shifted with insulin, calcium gluconate, and dextrose. Patient also received Valtassa. Patient was then started on a bicarb drip for a CO2 of 10. This morning her laboratory studies have improved. Potassium is now 5.0 creatinine is 4.73 and CO2 is 20. Repeat EKG from this morning shows normal T waves. Patient was started on thiamine and folic acid for alcohol withdrawals. She also has as needed Ativan. Review of systems relevant to events:: Unable to assess due to patient's mental status. Reason for ICU Addmission:: Hyperkalemia with EKG changes; acute renal failure - Medications: Medications reviewed and adjusted accordingly: Yes Physical Exam Vital Signs: Temp Pulse Resp BP Pulse Ox 98.6 F 88 23 H 130/84 H 97 08/15/19 08:00 08/15/19 09:46 08/15/19 08:00 08/15/19 08:00 08/15/19 08:00 Intake & Output 08/14/19 08/15/19 08/16/19 06:59 06:59 06:59 Intake Total 4100 182 Output Total 2200 425 Balance 1900 -243 Weight 101.2 kg Weight/Height Weight 101.2 kg Height 5 ft 1 in General appearance: PRESENT: no acute distress Head exam: PRESENT: atraumatic, normocephalic Eye exam: PRESENT: PERRLA. ABSENT: conjunctival injection, nystagmus Mouth exam: PRESENT: moist Neck exam: PRESENT: full ROM Respiratory exam: PRESENT: clear to auscultation thomas - Upper lobes, decreased breath sounds - Bilateral bases Cardiovascular exam: PRESENT: +S1, +S2 Pulses: PRESENT: normal radial pulses, normal dorsalis pedis pul GI/Abdominal exam: PRESENT: normal bowel sounds, soft Extremities exam: PRESENT: full ROM. ABSENT: clubbing, joint swelling Musculoskeletal exam: PRESENT: full ROM Neurological exam: PRESENT: oriented to person, oriented to place. ABSENT: oriented to time Laboratory/Radiographs Laboratory Results: 08/14/19 19:00 08/15/19 08:00 08/14/19 08/14/19 08/14/19 19:00 19:00 20:15 WBC 11.7 H RBC 2.90 L Hgb 9.8 L Hct 30.2 L MCV 104 H MCH 33.7 H MCHC 32.4 RDW 14.8 H Plt Count 231 Seg Neutrophils % 79.8 H Sodium Cancelled 137.4 Potassium Cancelled 8.1 H* Chloride Cancelled 111 H Carbon Dioxide Cancelled 10 L* Anion Gap Cancelled 16 BUN Cancelled 47 H Creatinine Cancelled 8.64 H Est GFR ( Amer) Cancelled 6 L Est GFR (Non-Af Amer) Cancelled Glucose Cancelled 105 Calcium Cancelled 7.8 L Magnesium Ferritin Total Bilirubin Cancelled 0.8 AST Cancelled 1993 H Alkaline Phosphatase Cancelled 186 H C-Reactive Protein Total Protein Cancelled 7.0 Albumin Cancelled 3.7 Urine Color Urine Appearance Urine pH Ur Specific [place] Urine Protein Urine Glucose (UA) Urine Ketones Urine Blood Urine Nitrite Ur Leukocyte Esterase Urine WBC (Auto) Urine RBC (Auto) 08/14/19 08/15/19 08/15/19 23:00 00:30 03:34 WBC RBC Hgb Hct MCV MCH MCHC RDW Plt Count Seg Neutrophils % Sodium 135.8 L 137.4 Potassium 7.0 H* D 5.0 D Chloride 110 H 109 H Carbon Dioxide 14 L 18 L Anion Gap 12 10 BUN 52 H 48 H Creatinine 7.35 H 5.98 H Est GFR ( Amer) 7 L 9 L Est GFR (Non-Af Amer) Glucose 112 H 118 H Calcium 8.2 L 8.6 Magnesium 1.4 L Ferritin 792.00 H Total Bilirubin 0.7 AST 1463 H Alkaline Phosphatase 165 H C-Reactive Protein 30.9 H Total Protein 6.5 Albumin 3.4 L Urine Color YELLOW Urine Appearance CLEAR Urine pH 5.0 Ur Specific [place] 1.012 Urine Protein 30 H Urine Glucose (UA) NEGATIVE Urine Ketones NEGATIVE Urine Blood MODERATE H Urine Nitrite NEGATIVE Ur Leukocyte Esterase SMALL H Urine WBC (Auto) 24 Urine RBC (Auto) 4 08/15/19 08:00 WBC RBC Hgb Hct MCV MCH MCHC RDW Plt Count Seg Neutrophils % Sodium 136.8 L Potassium 5.0 Chloride 109 H Carbon Dioxide 20 L Anion Gap 8 BUN 45 H Creatinine 4.73 H Est GFR ( Amer) 12 L Est GFR (Non-Af Amer) Glucose 123 H Calcium 8.9 Magnesium Ferritin Total Bilirubin AST Alkaline Phosphatase C-Reactive Protein Total Protein Albumin Urine Color Urine Appearance Urine pH Ur Specific [place] Urine Protein Urine Glucose (UA) Urine Ketones Urine Blood Urine Nitrite Ur Leukocyte Esterase Urine WBC (Auto) Urine RBC (Auto) Impressions: Chest X-Ray 08/15/19 01:32 IMPRESSION: 1. No acute pulmonary findings. EKG: Sinus rhythm. Rate 92. ID [id number]; QRS 104; QT 360; QTc 456. All labs, radiographs, diagnostic studies and EKGs were personally reviewed: Yes In addition, reports of radiographic and diagnostic studies were read: Yes Assessment and Plan - Diagnosis (1) Acute renal failure Qualifiers: Acute renal failure type: unspecified Qualified Code(s): N17.9 - Acute kidney failure, unspecified Is this a current diagnosis for this admission?: Yes Plan: Continue IV fluids. Recheck BMP in the morning. (2) Hyperkalemia Is this a current diagnosis for this admission?: Yes Plan: Improved. Recheck BMP in the morning. (3) Alcohol withdrawal Qualifiers: Complication of substance-induced condition: with unspecified complication Qualified Code(s): F10.239 - Alcohol dependence with withdrawal, unspecified Is this a current diagnosis for this admission?: Yes Plan: Continue thiamine and folic acid. Ativan as needed. Patient is still acutely confused. Oriented to person and place, but not time or situation. (4) Suspected 2019 novel coronavirus infection Is this a current diagnosis for this admission?: Yes Plan: Ferritin 792 and lactate dehydrogenase 1578. COVID-19 test pending. Continue to follow lab results. (5) UTI (urinary tract infection) Qualifiers: Urinary tract infection type: acute cystitis Hematuria presence: with hematuria Qualified Code(s): N30.01 - Acute cystitis with hematuria Is this a current diagnosis for this admission?: Yes Plan: Treated with 2gm ceftriaxone last night. (6) Hypomagnesemia Is this a current diagnosis for this admission?: Yes Plan: Received magnesium replacement last night. Will recheck labs in the morning. (7) Nausea, vomiting, and diarrhea Is this a current diagnosis for this admission?: Yes Plan: Resolved. Nursing staff notes that the patient has had not had this overnight. Plan Summary: Plan for downgrade to medical floor today. Continue treatment for alcohol withdrawals. Critical Time Critical Time (minutes): 30 Level of Care: MEDICAL Anticipated discharge: Home Within: within 48 hours -: 1. The care of a critical patient is a dynamic process. This note is a artists' booking representative synopsis but static in nature. The timeframe for treatments given in order is not necessarily the actual time these treatments may have been done. 2. This patient requires critical care secondary to ongoing requirements for therapy not offered or safe outside the critical care environment. Transfer to a lower level of care will result in altered life or limb morbidity and mortality. 3. Multidisciplinary rounds completed. 4. ABCDE bundle addressed.
[2019-08-15] MEDS ORDERED: ALBUTEROL SULFATE 0.083% NEB 2.5 MG/3 ML AMPUL NEB PRN (11:05)
[2019-08-15] MEDS ORDERED: (PENDING PHARMACY ID) (Albuterol Sulfate 2 PUFF) IH PRN (11:05)
[2019-08-15] MEDS ORDERED: ALBUTEROL SULFATE HFA (90 MCG/PUFF) 200 PUFF/8.5 GM MDI IH PRN (11:11)
[2019-08-15] MEDS ORDERED: FLUTICASONE PROPION IH SCH (11:15)
[2019-08-15] MEDS ORDERED: FOLIC ACID 1 MG TABLET PO SCH (11:15)
[2019-08-15] MEDS ORDERED: SALMETEROL IH SCH (11:15)
[2019-08-15] MEDS: FOLIC ACID IV SCH (11:39)
[2019-08-15] MEDS: NORMAL SALINE IV SCH (11:39)
[2019-08-15] MEDS: DEXTROSE 5%-WATER 1000 ML 1,000 ML with SODIUM BICARBONATE 150 MEQ IV PRN ×4 (11:39→22:52)
[2019-08-15] MEDS: PANTOPRAZOLE SODIUM 40 MG TABLET.DR PO SCH ×2 (11:41→21:24)
--- NOTE | 2019-08-15 18:40 | EKG REPORT ---
SEVERITY:- ABNORMAL ECG - SINUS RHYTHM NONSPECIFIC T ABNORMALITIES, INFERIOR LEADS : Confirmed by: Hudson Alegria 15-Aug-2019 18:39:24
[2019-08-15] MEDS: ATORVASTATIN CALCIUM 20 MG TABLET PO SCH (21:24)
[2019-08-15] MEDS: METOPROLOL SUCCINATE 25 MG TAB.SR.24H PO SCH (21:24)
[2019-08-15] MEDS: VENLAFAXINE HCL 37.5 MG CAP.SR.24H PO SCH (21:24)
[2019-08-16] MEDS: THIAMINE HCL 200 MG in NORMAL SALINE 50 ML IV SCH ×3 (01:23→23:03)
--- NOTE | 2019-08-16 02:08 | CRITICAL CARE ADMISSION REPORT ---
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 She informed me she drinks 1/2 to 1 gallon of vodka daily. She says she normally has diarrhea the next day after she has been drinking a lot. Ms Taylor also informed me she has had 3 days of shortness of breath, though denies fever, chills, cough, headache, sinus pressure, sore throat, anosmia, dysguesia, or myalgias. She recently went to a friend's house to hang out and drink in which there were "about 10" people there, none of whom were wearing a mask or partaking in social distancing. SOB, vomiting, diarrhea in combination with her fairly recent social gathering are concerning for the possibility of COVID-19. She was found to have ALEJA with a Cr >8, hyperkalemia with a K+ >8, peaked T waves on EKG with bradycardia, a leukocytosis of 11.7 with a urinalysis yielding UTI given that she has also had urinary frequency and dysuria. Also during my exam, Ms Tayolr was noted to be experiencing alcohol withdrawal for which she had tremors, restlessness, anxiety, diaphoresis, and when asked if she was craving alcohol, she said "yes." She denies tremors at baseline with exception of when she wakes up and needs a drink. Her K+ remains 7 following intracellular shifting of potassium, Cr is slowly downtrending, making urine, but my concern is that she will be better served in the ICU for vigilant observation of her urine output, repeat labs followed closely for ALEJA/electrolyte abnormalities, currently needs treated for hyperkalemia again, and is also experiencing alcohol withdrawal. Will send biomarkers consistent with COVID-19 and if elevated, will perform the nasal swab test. History obtained from:: medical record, ER physician, patient - Diagnosis/Plan (1) Metabolic acidosis Is this a current diagnosis for this admission?: Yes Plan: Hydration to improve renal function, which should correct acidemia. Continue Sodium bicarb infusion for now. (2) ALEJA (acute kidney injury) Is this a current diagnosis for this admission?: Yes Plan: Serial BMP prn until K+ stabilizes without intervention and BUN/Cr continue to downtrend, then daily. Continue with IV hydration. Strict I&O via Guzman. (3) Hyperkalemia Is this a current diagnosis for this admission?: Yes Plan: Potassium still 7. Veltassa administered in ED but will take quite a while before it works and is not to be used as treatment of acute hyperkalemia. Will give another 1 gm Ca+ gluconate, 10 units IV regular insulin, 25 gm of D50 and then repeat another BMP. (4) Suspected 2019 novel coronavirus infection Is this a current diagnosis for this admission?: Yes Plan: Send serum biomarkers and if elevated, will perform nasal swab test. As a PUI, patient will need to be maintained in precautions for COVID-19 until resulted. (5) Alcohol withdrawal Qualifiers: Complication of substance-induced condition: with unspecified complication Qualified Code(s): F10.239 - Alcohol dependence with withdrawal, unspecified Is this a current diagnosis for this admission?: Yes Plan: Will start Thiamine and Folate x3 days. 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 Re-check Mg+ level tomorrow (8) Hypovolemia due to dehydration Is this a current diagnosis for this admission?: Yes Plan: Continue with sodium bicarb infusion for hydration. Strict I&O via guzman (9) UTI (urinary tract infection) Qualifiers: Urinary tract infection type: acute cystitis Hematuria presence: with hematuria Qualified Code(s): N30.01 - Acute cystitis with hematuria Is this a current diagnosis for this admission?: Yes Plan: Ceftriaxone 2 gm IM x1 for acute uncomplicated UTI (10) COPD (chronic obstructive pulmonary disease) Qualifiers: COPD type: emphysema Emphysema type: centrilobular Qualified Code(s): J43 .2 - Centrilobular emphysema Is this a current diagnosis for this admission?: No Plan: Duonebs prn Past Medical History Cardiac Medical History: Reports: Atrial Fibrillation, Myocardial Infarction - at 22 y/o, ephedrine induced, Hyperlipidema, Hypertension Denies: Congestive Heart Failure, Coronary Artery Disease, Peripheral Vascular Disease, Pulmonary Embolism, Heart Murmur Pulmonary Medical History: Reports: Asthma, Chronic Obstructive Pulmonary Disease (COPD) Denies: Bronchitis, Pneumonia, Respiratory Failure, Sleep Apnea, Tuberculosis Neurological Medical History: Reports: Seizures - With alcohol withdrawal Denies: Migraine Endocrine Medical History: Reports: Hypothyroidism Denies: Diabetes Mellitus Type 1, Diabetes Mellitus Type 2, Hyperthyroidism Renal/ Medical History: Denies: End Stage Renal Disease GI Medical History: Reports: Gastroesophageal Reflux Disease Denies: Cirrhosis, Crohn's Disease, Hepatitis, Hiatal Hernia, Ulcerative Colitis Musculoskeltal Medical History: Denies: Arthritis, Fibromyalgia Skin Medical History: Denies: Eczema, Psoriasis Psychiatric Medical History: Reports: Bipolar Disorder, Depression Hematology: Denies: Anemia, Hemophilia, Bleeding Tendencies, Heparin Induced Thrombocytopenia Past Surgical History Past Surgical History: Reports: Appendectomy, Cholecystectomy, Orthopedic Surgery - right knee, Tonsillectomy, Tubal Ligation Denies: Amputation, Section, Hysterectomy, Mastectomy Social/Family History - Social History Smoking Status: Never Smoker Frequency of Alcohol Use: Heavy Amount of Alcoholic Beverages Per Day: 1/2 to 1 gallon of Vodka daily Last Alcohol Use: 08/14/19 Hx Recreational Drug Use: No Drugs: None Hx Prescription Drug Abuse: No - Family History Family History: Hypertension - Medication/Allergies Home Medications: Albuterol Sulfate [Proair HFA Inhalation Aerosol 8.5 gm MDI] 2 puff IH Q4HP PRN 01/15/19 Levothyroxine Sodium 88 mcg PO Q6AM 01/15/19 Magnesium Oxide [Mag-Ox 400 mg Tablet] 400 mg PO DAILY 01/15/19 Fluticasone Propion/Salmeterol [Wixela 250-50 Inhub] 1 each IH Q12 02/22/19 Apixaban [Eliquis 5 mg Tablet] 5 mg PO BID #30 tablet 02/26/19 Atorvastatin Calcium [Lipitor 20 mg Tablet] 20 mg PO QHS #15 tablet 02/26/19 Folic Acid 1 mg PO DAILY 03/01/19 Omeprazole 40 mg PO BID 03/01/19 Venlafaxine HCl ER [Effexor Xr 37.5 mg Cap.sr] 37.5 mg PO QHS 03/01/19 Diltiazem HCl [Diltiazem 24Hr ER] 240 mg PO DAILY 03/12/19 Metoprolol Succinate [Toprol Xl 25 mg Tab.sr] 25 mg PO Q12 03/12/19 Albuterol Sulfate [Ventolin 0.083% Neb 2.5 mg/3 mL Ampul] 1 vial NEB Q6HP PRN 07/29/19 Alprazolam [Xanax] 0.5 mg PO Q12 08/15/19 Hydrochlorothiazide [Hydrodiuril 25 mg Tablet] 25 mg PO DAILY 08/15/19 Ibuprofen [Ibu] 600 mg PO TID 08/15/19 Potassium Chloride [K-Tab ER] 20 meq PO BID 08/15/19 Allergies/Adverse Reactions: No Known Allergies Allergy (Verified 07/28/19 20:32) Review of Systems Constitutional: ABSENT: chills, fever(s), headache(s), night sweats, weakness Eyes: ABSENT: visual disturbances Ears: ABSENT: hearing changes Nose, Mouth, and Throat: ABSENT: headache(s), mouth pain, sore throat Cardiovascular: PRESENT: dyspnea on exertion. ABSENT: chest pain, edema, palpitations Respiratory: ABSENT: cough, hemoptysis, sputum Gastrointestinal: PRESENT: diarrhea, vomiting. ABSENT: abdominal pain, dysphagia, hematemesis, hematochezia, melena Genitourinary: PRESENT: dysuria. ABSENT: hematuria Musculoskeletal: ABSENT: back pain, deformity, joint swelling, muscle weakness Integumentary: ABSENT: diaphoresis, pruritus, rash Neurological: ABSENT: confusion, frequent falls, lack of coordination, syncope, weakness Hematologic/Lymphatic: ABSENT: easy bleeding, easy bruising, lymphadenopathy Allergic/Immunologic: ABSENT: seasonal rhinorrhea Physical Exam Vital Signs: Temp Pulse Resp BP Pulse Ox 97.1 F 49 L 27 H 131/79 H 89 L 08/15/19 00:30 08/14/19 17:42 08/15/19 00:30 08/15/19 00:30 08/15/19 00:30 Intake & Output 08/13/19 08/14/19 08/15/19 06:59 06:59 06:59 Intake Total 1999 Balance 1999 Weight 102 kg Weight/Height Weight 102 kg Height 5 ft 1 in General appearance: PRESENT: no acute distress, cooperative, obese Head exam: PRESENT: atraumatic, normocephalic Eye exam: PRESENT: conjunctiva pink, EOMI, PERRLA. ABSENT: scleral icterus Ear exam: PRESENT: normal external ear exam Mouth exam: PRESENT: dry mucosa, neck supple, tongue midline Neck exam: PRESENT: full ROM. ABSENT: JVD, lymphadenopathy, tenderness, tracheal deviation Respiratory exam: PRESENT: clear to auscultation thomas, tachypnea, unlabored. ABSENT: accessory muscle use Cardiovascular exam: PRESENT: +S1, +S2 Pulses: PRESENT: normal radial pulses, +2 pedal pulses bilateral Vascular exam: PRESENT: normal capillary refill GI/Abdominal exam: PRESENT: hyperactive bowel sounds, soft. ABSENT: distended, firm, tenderness Rectal exam: PRESENT: deferred Gentrourinary exam: PRESENT: indwelling catheter. ABSENT: urethral discharge Extremities exam: PRESENT: full ROM. ABSENT: pedal edema Musculoskeletal exam: PRESENT: normal inspection Neurological exam: PRESENT: alert, awake, oriented to person, oriented to place, oriented to time, oriented to situation, CN II-XII grossly intact Psychiatric exam: PRESENT: anxious Focused psych exam: PRESENT: restlessness Skin exam: PRESENT: dry, intact. ABSENT: jaundice Laboratory/Radiographs Laboratory Results: 08/14/19 19:00 08/15/19 00:30 08/14/19 08/14/19 08/14/19 19:00 19:00 20:15 WBC 11.7 H RBC 2.90 L Hgb 9.8 L Hct 30.2 L MCV 104 H MCH 33.7 H MCHC 32.4 RDW 14.8 H Plt Count 231 Seg Neutrophils % 79.8 H Sodium Cancelled 137.4 Potassium Cancelled 8.1 H* Chloride Cancelled 111 H Carbon Dioxide Cancelled 10 L* Anion Gap Cancelled 16 BUN Cancelled 47 H Creatinine Cancelled 8.64 H Est GFR ( Amer) Cancelled 6 L Est GFR (Non-Af Amer) Cancelled Glucose Cancelled 105 Calcium Cancelled 7.8 L Total Bilirubin Cancelled 0.8 AST Cancelled 1993 H Alkaline Phosphatase Cancelled 186 H Total Protein Cancelled 7.0 Albumin Cancelled 3.7 Urine Color Urine Appearance Urine pH Ur Specific [place] Urine Protein Urine Glucose (UA) Urine Ketones Urine Blood Urine Nitrite Ur Leukocyte Esterase Urine WBC (Auto) Urine RBC (Auto) 08/14/19 08/15/19 23:00 00:30 WBC RBC Hgb Hct MCV MCH MCHC RDW Plt Count Seg Neutrophils % Sodium 135.8 L Potassium 7.0 H* D Chloride 110 H Carbon Dioxide 14 L Anion Gap 12 BUN 52 H Creatinine 7.35 H Est GFR ( Amer) 7 L Est GFR (Non-Af Amer) Glucose 112 H Calcium 8.2 L Total Bilirubin AST Alkaline Phosphatase Total Protein Albumin Urine Color YELLOW Urine Appearance CLEAR Urine pH 5.0 Ur Specific [place] 1.012 Urine Protein 30 H Urine Glucose (UA) NEGATIVE Urine Ketones NEGATIVE Urine Blood MODERATE H Urine Nitrite NEGATIVE Ur Leukocyte Esterase SMALL H Urine WBC (Auto) 24 Urine RBC (Auto) 4 Impressions: Chest X-Ray 08/15/19 01:32 IMPRESSION: 1. No acute pulmonary findings. All labs, radiographs, diagnostic studies and EKGs were personally reviewed: Yes In addition, reports of radiographic and diagnostic studies were read: Yes Critical Time Critical Time (minutes): 70 -: The care of a critically ill patient is dynamic. This note represents a static moment in the admission process. Orders and treatments may be given simultaneously and urgently, and time is not community representative of the treatment process. This patient requires Critical Care secondary to life threatening organ or limb dysfunction. Without Critical Care services, the patient is at risk for increased mortality and morbidity.
[2019-08-16] MEDS ORDERED: FENTANYL CITRATE INJ/PF 100 MCG/2 ML AMPUL IV ONE (05:03)
[2019-08-16] MEDS ORDERED: FENTANYL CITRATE INJ/PF 100 MCG/2 ML AMPUL ONE (05:09)
[2019-08-16] MEDS: HEPARIN SOD (PORCINE) 5,000 UNIT/ML 1 ML VIAL SUBCUT SCH ×3 (05:23→21:54)
[2019-08-16] MEDS: LEVOTHYROXINE SODIUM 0.088 MG TABLET PO SCH (05:23)
[2019-08-16 05:32] LABS: BLOOD UREA NITROGEN 31 mg/dL (7-20); GLUCOSE 128 mg/dL (75-110)
[2019-08-16 05:37] LABS: ANION GAP 5 (5-19); CHLORIDE 98 mmol/L (98-107)
[2019-08-16 05:43] LABS: CARBON DIOXIDE 34 mmol/L (22-30); POTASSIUM 4.5 mmol/L (3.6-5.0)
[2019-08-16 07:30] LABS: ABSOLUTE BASOPHILS # (AUTO) 0.1 10^3/uL (0.0-0.2); ABSOLUTE EOSINOPHILS # (AUTO) 0.1 10^3/uL (0.0-0.6); ABSOLUTE LYMPHOCYTES (AUTO) 1.5 10^3/uL (0.5-4.7); ABSOLUTE MONOCYTES (AUTO) 0.7 10^3/uL (0.1-1.4); ABSOLUTE NEUT (AUTO) 3.5 10^3/uL (1.7-8.2); BASOPHILS % (AUTO) 1.3 % (0-2); EOSINOPHILS % (AUTO) 2.4 % (0-6); HEMATOCRIT 29.9 % (36.0-47.0); HEMOGLOBIN 10.3 g/dL (12.0-15.5); LYMPHOCYTES % (AUTO) 24.7 % (13-45); MEAN CORPUSCULAR HEMOGLOBIN 34.5 pg (27.0-33.4); MEAN CORPUSCULAR HGB CONC 34.5 g/dL (32.0-36.0); PLATELET COUNT 159 10^3/uL (150-450); RED BLOOD COUNT 2.99 10^6/uL (3.72-5.28); RED CELL DISTRIBUTION WIDTH 14.1 % (11.5-14.0); SEGMENTED NEUTROPHILS % (AUTO) 59.6 % (42-78); TOTAL CELLS COUNTED % (AUTO) 100 %; WHITE BLOOD COUNT 5.9 10^3/uL (4.0-10.5)
[2019-08-16 08:21] LABS: MEAN CORPUSCULAR VOLUME 100 fl (80-97)
--- NOTE | 2019-08-16 09:46 | PDOC CRITICAL CARE PROG REPORT ---
General Date:: 08/16/19 ICU Day:: 2 Hospital Day:: 2 Resuscitation Status: Full Code Events in the past 12 to 24 Hours:: 08/14: Patient was admitted to the ICU overnight for hyperkalemia, acute renal failure, alcohol withdrawals, and suspected COVID-19 infection. Patient's initial potassium was 8.1 and creatinine was 8.64. She also had peaked T waves noted on her initial twelve-lead EKG. In the emergency department, the patient was shifted with insulin, calcium gluconate, and dextrose. Patient also received Valtassa. Patient was then started on a bicarb drip for a CO2 of 10. This morning her laboratory studies have improved. Potassium is now 5.0 creatinine is 4.73 and CO2 is 20. Repeat EKG from this morning shows normal T waves. Patient was started on thiamine and folic acid for alcohol withdrawals. She also has as needed Ativan. 08/15: Doing well. Some agitation. About to transfer to floor. Wants ice cream. Chronic R foot pain (trauma). COVID test still PENDING. Review of systems relevant to events:: Unable to assess due to patient's mental status. Reason for ICU Addmission:: Metabolic acidosis, ALEJA, hyperkalemia, alcohol withdrawal - Medications: Medications reviewed and adjusted accordingly: Yes Physical Exam Vital Signs: Temp Pulse Resp BP Pulse Ox 98.6 F 92 20 147/91 H 98 08/15/19 08:00 08/15/19 20:15 08/16/19 08:24 08/16/19 08:24 08/16/19 02:41 Intake & Output 08/15/19 08/16/19 08/17/19 06:59 06:59 06:59 Intake Total 4100 1526 52 Output Total 2200 1575 Balance 1900 -49 52 Weight 101.2 kg 102.3 kg Weight/Height Weight 102.3 kg Height 1.55 m General appearance: PRESENT: no acute distress, well-developed, well-nourished Head exam: PRESENT: atraumatic, normocephalic Eye exam: PRESENT: conjunctiva pink, EOMI, PERRLA. ABSENT: scleral icterus Mouth exam: PRESENT: moist, tongue midline Respiratory exam: PRESENT: clear to auscultation thomas. ABSENT: rales, rhonchi, wheezes Cardiovascular exam: PRESENT: irregular rhythm. ABSENT: diastolic murmur, rubs, systolic murmur GI/Abdominal exam: PRESENT: normal bowel sounds, soft. ABSENT: distended, guarding, mass, organolmegaly, rebound, tenderness Extremities exam: PRESENT: full ROM. ABSENT: calf tenderness, clubbing, pedal edema Neurological exam: PRESENT: alert, awake, oriented to person, oriented to place, oriented to time, oriented to situation, CN II-XII grossly intact. ABSENT: motor sensory deficit Skin exam: PRESENT: dry, intact, warm. ABSENT: cyanosis, rash Laboratory/Radiographs Laboratory Results: 08/16/19 07:20 08/16/19 05:06 08/16/19 08/16/19 08/16/19 05:06 05:06 07:20 WBC Cancelled 5.9 RBC Cancelled 2.99 L Hgb Cancelled 10.3 L Hct Cancelled 29.9 L MCV Cancelled 100 H D MCH Cancelled 34.5 H MCHC Cancelled 34.5 RDW Cancelled 14.1 H Plt Count Cancelled 159 Seg Neutrophils % Cancelled 59.6 Sodium 137.4 Potassium 4.5 Chloride 98 Carbon Dioxide 34 H D Anion Gap 5 BUN 31 H Creatinine 1.80 H Est GFR ( Amer) 36 L Glucose 128 H Calcium 9.0 Magnesium 1.6 Impressions: Chest X-Ray 08/15/19 01:32 IMPRESSION: 1. No acute pulmonary findings. All labs, radiographs, diagnostic studies and EKGs were personally reviewed: Yes In addition, reports of radiographic and diagnostic studies were read: Yes Assessment and Plan - Diagnosis (1) Person under investigation for COVID-19 Is this a current diagnosis for this admission?: Yes Plan: COVID test PENDING. Continue isolation protocol for now. (2) Acute renal failure Qualifiers: Acute renal failure type: unspecified Qualified Code(s): N17.9 - Acute kidney failure, unspecified Is this a current diagnosis for this admission?: Yes Plan: improving. BMP in am. (3) Alcohol withdrawal Qualifiers: Complication of substance-induced condition: with unspecified complication Qualified Code(s): F10.239 - Alcohol dependence with withdrawal, unspecified Is this a current diagnosis for this admission?: Yes Plan: Continue thiamine and folic acid. Ativan as needed. (4) Nausea, vomiting, and diarrhea Is this a current diagnosis for this admission?: Yes Plan: Resolved. (5) Atrial fibrillation with RVR Is this a current diagnosis for this admission?: Yes (6) UTI (urinary tract infection) Qualifiers: Urinary tract infection type: acute cystitis Hematuria presence: with hematuria Qualified Code(s): N30.01 - Acute cystitis with hematuria Is this a current diagnosis for this admission?: Yes Plan: Treated with ceftriaxone. Plan Summary: OK to transfer to the floor. Critical Time Critical Time (minutes): 30 Level of Care: IMCU -: 1. The care of a critical patient is a dynamic process. This note is a repre sentative synopsis but static in nature. The timeframe for treatments given in order is not necessarily the actual time these treatments may have been done. 2. This patient requires critical care secondary to ongoing requirements for therapy not offered or safe outside the critical care environment. Transfer to a lower level of care will result in altered life or limb morbidity and mortality. 3. Multidisciplinary rounds completed. 4. ABCDE bundle addressed.
[2019-08-16] MEDS: METOPROLOL SUCCINATE 25 MG TAB.SR.24H PO SCH ×2 (09:47→21:58)
[2019-08-16] MEDS: MAGNESIUM OXIDE 400 MG TABLET PO SCH (09:47)
[2019-08-16] MEDS: PANTOPRAZOLE SODIUM 40 MG TABLET.DR PO SCH ×2 (09:50→21:57)
[2019-08-16] MEDS: FOLIC ACID IV SCH (10:35)
[2019-08-16] MEDS: NORMAL SALINE IV SCH (10:35)
--- NOTE | 2019-08-16 20:27 | Progress Note ---
Provider Note Provider Note: The patient is a 48-year-old female, well-known to our service, with a past medical history of alcohol dependence with continuous use, alcohol withdrawal with seizures, medical noncompliance with frequent AMA, COPD, CAD, hypertension, hypothyroidism, and obesity who was admitted to the intensive care service on 08/15/2019 with metabolic acidosis and alcohol withdrawal. She is downgraded to IMCU today. H&P, most recent progress note, vital signs, overnight events, laboratory results and imaging studies reviewed. Acute alcohol withdrawal has subsided. Atrial fibrillation RVR is now rate controlled; frequent occurrence during her alcohol withdrawal. Urinary tract infection treated with ceftriaxone. ALEJA improving; creatinine down to 1.80/BUN 31. She has adequate p.o. intake LFTs gradually trending down; potentially related to alcohol withdrawal/dependence. However, patient is also noted to have an increased ferritin, CRP, LDH, and d- dimer, with high risk community exposure (reportedly had a large constitution party several days prior to her admission). Chest imaging is clear and she is maintaining oxygen saturations on NC. COVID pending. We will add HIV, hepatitis panel, CMV, Juli-Tariq to a.m. lab work.
[2019-08-16] MEDS: VENLAFAXINE HCL 37.5 MG CAP.SR.24H PO SCH (21:57)
[2019-08-16] MEDS: ATORVASTATIN CALCIUM 20 MG TABLET PO SCH (21:58)
[2019-08-16] MEDS ORDERED: THIAMINE HCL INJ 200 MG/2 ML VIAL ONE (22:51)
[2019-08-17] MEDS ORDERED: MORPHINE SULFATE 10 MG/ML INJ IV PRN ×3 (01:04→01:34)
[2019-08-17] MEDS: DEXTROSE 5%-WATER 1000 ML 1,000 ML with SODIUM BICARBONATE 150 MEQ IV PRN ×2 (01:35)
[2019-08-17] MEDS: MORPHINE SULFATE 10 MG/ML INJ IV PRN ×2 (01:58→09:56)
[2019-08-17 05:41] LABS: HEMATOCRIT 28.7 % (36.0-47.0); MEAN CORPUSCULAR HEMOGLOBIN 34.8 pg (27.0-33.4); MEAN CORPUSCULAR HGB CONC 34.9 g/dL (32.0-36.0); MEAN CORPUSCULAR VOLUME 100 fl (80-97); PLATELET COUNT 171 10^3/uL (150-450); RED BLOOD COUNT 2.87 10^6/uL (3.72-5.28); RED CELL DISTRIBUTION WIDTH 14.3 % (11.5-14.0); WHITE BLOOD COUNT 7.9 10^3/uL (4.0-10.5)
[2019-08-17 06:14] LABS: ALBUMIN 3.2 g/dL (3.5-5.0); ALKALINE PHOSPHATASE 158 U/L (38-126); ANION GAP 6 (5-19); ASPARTATE AMINO TRANSFERASE 151 U/L (14-36); BILIRUBIN,DIRECT 0.5 mg/dL (0.0-0.4); BILIRUBIN,TOTAL 1.1 mg/dL (0.2-1.3); BLOOD UREA NITROGEN 28 mg/dL (7-20); CALCIUM 8.3 mg/dL (8.4-10.2); CARBON DIOXIDE 37 mmol/L (22-30); CHLORIDE 92 mmol/L (98-107); GLUCOSE 110 mg/dL (75-110); POTASSIUM 4.4 mmol/L (3.6-5.0); TOTAL PROTEIN 6.3 g/dL (6.3-8.2)
[2019-08-17] MEDS: HEPARIN SOD (PORCINE) 5,000 UNIT/ML 1 ML VIAL SUBCUT SCH ×3 (06:26→22:33)
[2019-08-17] MEDS: THIAMINE HCL 200 MG in NORMAL SALINE 50 ML IV SCH (06:29)
[2019-08-17] MEDS: LEVOTHYROXINE SODIUM 0.088 MG TABLET PO SCH (06:30)
[2019-08-17] MEDS: MAGNESIUM OXIDE 400 MG TABLET PO SCH (09:56)
[2019-08-17] MEDS: PANTOPRAZOLE SODIUM 40 MG TABLET.DR PO SCH ×2 (09:56→22:32)
[2019-08-17] MEDS: METOPROLOL SUCCINATE 25 MG TAB.SR.24H PO SCH ×2 (09:56→22:32)
[2019-08-17] MEDS: FOLIC ACID IV SCH (10:01)
[2019-08-17] MEDS: NORMAL SALINE IV SCH (10:01)
[2019-08-17] MEDS: NORMAL SALINE 1000 ML 1,000 ML IV PRN (12:00)
[2019-08-17] MEDS: CEPHALEXIN 500 MG CAPSULE PO SCH ×2 (12:00→17:44)
[2019-08-17] MEDS: TRAMADOL HCL 50 MG TABLET PO PRN ×2 (13:39→20:08)
--- NOTE | 2019-08-17 16:24 | PDOC PROGRESS REPORT ---
Subjective Progress Note for:: 08/17/19 Subjective:: The patient is a 48-year-old female, well-known to our service, with a past medical history of alcohol dependence with continuous use, alcohol withdrawal with seizures, medical noncompliance with frequent AMA, COPD, CAD, hypertension, hypothyroidism, and obesity who was admitted to the intensive care service on 08/15/2019 with metabolic acidosis and alcohol withdrawal. She is downgraded to CU 08/16/19. Patient was seen on morning rounds. She was found resting in bed, comfortably, on supplemental oxygen via NC. She is not home O2 dependent. She is A&Ox4, though with mild confusion/forgetfulness. Mentation is fairly consistent with what I remember of Ms. Taylor from prior admissions. She reports she is feeling well today. Does complain of right foot pain/swelling to previous IV site. She also reports feeling of urinary urgency (guzman in place). She tells me that she is "considering" alcohol rehab services, though wants to discuss this further with her friend prior to making a decision. She denies fever, chills, chest pain, palpitations, dyspnea, orthopnea, abdominal pain, nausea vomiting and diarrhea. She has no new questions or concerns. No concerns per nursing. Reason For Visit: METABOLIC ACIDOSIS, HYPERKALEMIA, ALEJA, Physical Exam Vital Signs: Temp Pulse Resp BP Pulse Ox 98.4 F 78 15 146/95 H 90 L 08/17/19 08:37 08/17/19 14:00 08/17/19 08:37 08/17/19 08:37 08/17/19 08:37 Intake & Output 08/16/19 08/17/19 08/18/19 06:59 06:59 06:59 Intake Total 3995 007 2891 Output Total 1575 325 Balance 583 993 7533 Weight 102.3 kg 102.4 kg General appearance: PRESENT: no acute distress, disheveled, morbidly obese, well-developed, well-nourished Head exam: PRESENT: atraumatic, normocephalic Eye exam: PRESENT: conjunctiva pink, EOMI, PERRLA. ABSENT: scleral icterus Mouth exam: PRESENT: moist, tongue midline Teeth exam: PRESENT: poor dentation Respiratory exam: PRESENT: clear to auscultation thomas, symmetrical, unlabored. ABSENT: rales, rhonchi, wheezes Cardiovascular exam: PRESENT: RRR, +S1, +S2. ABSENT: diastolic murmur, rubs, systolic murmur Vascular exam: PRESENT: normal capillary refill GI/Abdominal exam: PRESENT: normal bowel sounds, soft. ABSENT: distended, guarding, mass, organolmegaly, rebound, tenderness Rectal exam: PRESENT: deferred Gentrourinary exam: PRESENT: indwelling catheter Extremities exam: PRESENT: full ROM. ABSENT: calf tenderness, clubbing, pedal edema Neurological exam: PRESENT: alert, awake, oriented to person, oriented to place, oriented to time, oriented to situation, CN II-XII grossly intact. ABSENT: motor sensory deficit Psychiatric exam: PRESENT: appropriate affect, normal mood. ABSENT: homicidal ideation, suicidal ideation Skin exam: PRESENT: dry, intact, warm. ABSENT: cyanosis, rash Results Laboratory Results: 08/17/19 05:11 08/17/19 05:11 08/17/19 08/17/19 05:11 05:11 WBC 7.9 RBC 2.87 L Hgb 10.0 L Hct 28.7 L MCV 100 H MCH 34.8 H MCHC 34.9 RDW 14.3 H Plt Count 171 Sodium 134.8 L Potassium 4.4 Chloride 92 L Carbon Dioxide 37 H Anion Gap 6 BUN 28 H Creatinine 1.60 H Est GFR ( Amer) 41 L Glucose 110 Calcium 8.3 L Total Bilirubin 1.1 AST 151 H Alkaline Phosphatase 158 H Total Protein 6.3 Albumin 3.2 L Impressions: Chest X-Ray 08/15/19 01:32 IMPRESSION: 1. No acute pulmonary findings. Assessment and Plan - Diagnosis (1) Acute renal failure Qualifiers: Acute renal failure type: unspecified Qualified Code(s): N17.9 - Acute kidney failure, unspecified Is this a current diagnosis for this admission?: Yes Plan: Resolved; now at baseline renal function. Cr 8.64-> 1.60 Continue gentle IV fluids. Avoid nephrotoxic medications as able. Remove Guzman. Continue strict I&O's. Follow-up chemistries. (2) Alcohol withdrawal Qualifiers: Complication of substance-induced condition: with unspecified complication Qualified Code(s): F10.239 - Alcohol dependence with withdrawal, unspecified Is this a current diagnosis for this admission?: Yes Plan: Continue thiamine and folic acid. Has not required as needed Ativan in over 24 hours. Discharge planning consulted. Patient remains noncommittal to sobriety/alcohol rehabilitation. (3) Nausea, vomiting, and diarrhea Is this a current diagnosis for this admission?: Yes Plan: Resolved. (4) Atrial fibrillation with RVR Is this a current diagnosis for this admission?: Yes Plan: Resolved. Secondary to acute alcohol withdrawal. Currently rate controlled on Toprol-XL 25 mg twice daily. Resume home dose Eliquis (5) COPD (chronic obstructive pulmonary disease) Qualifiers: COPD type: emphysema Emphysema type: centrilobular Qualified Code(s): J43.2 - Centrilobular emphysema Is this a current diagnosis for this admission?: No Plan: Stable and without exacerbation at this time. Currently on supplemental oxygen; begin weaning process. Keep SPO2 greater than 89%. As needed nebulizer treatments. Pulmonary toilet encouraged with incentive spirometer, flutter valve, and early ambulation. (6) Morbid obesity with BMI of 40.0-44.9, adult Is this a current diagnosis for this admission?: Yes Plan: BMI 42.7. Dietary discretion and lifestyle modification are encouraged. (7) UTI (urinary tract infection) Qualifiers: Urinary tract infection type: acute cystitis Hematuria presence: with hematuria Qualified Code(s): N30.01 - Acute cystitis with hematuria Is this a current diagnosis for this admission?: Yes Plan: Received full course of ceftriaxone. (8) Person under investigation for COVID-19 Is this a current diagnosis for this admission?: Yes Plan: COVID test negative. - Time Time Spent with patient: 25-34 minutes Medications reviewed and adjusted accordingly: Yes Anticipated discharge: Home Within: within 24 hours
[2019-08-17] MEDS: APIXABAN 5 MG TABLET PO SCH (17:44)
[2019-08-17] MEDS: VENLAFAXINE HCL 37.5 MG CAP.SR.24H PO SCH (22:31)
[2019-08-17] MEDS: ATORVASTATIN CALCIUM 20 MG TABLET PO SCH (22:32)
[2019-08-18] MEDS: NORMAL SALINE 1000 ML 1,000 ML IV PRN ×2 (00:41→09:19)
[2019-08-18] MEDS: CEPHALEXIN 500 MG CAPSULE PO SCH ×2 (00:41→06:03)
[2019-08-18 05:25] LABS: ALBUMIN 3.3 g/dL (3.5-5.0); ALKALINE PHOSPHATASE 164 U/L (38-126); ANION GAP 6 (5-19); ASPARTATE AMINO TRANSFERASE 93 U/L (14-36); BILIRUBIN,DIRECT 0.1 mg/dL (0.0-0.4); BILIRUBIN,TOTAL 0.8 mg/dL (0.2-1.3); BLOOD UREA NITROGEN 18 mg/dL (7-20); CARBON DIOXIDE 32 mmol/L (22-30); CHLORIDE 96 mmol/L (98-107); GLUCOSE 97 mg/dL (75-110); POTASSIUM 3.9 mmol/L (3.6-5.0); TOTAL PROTEIN 6.4 g/dL (6.3-8.2)
[2019-08-18] MEDS: TRAMADOL HCL 50 MG TABLET PO PRN (06:02)
[2019-08-18] MEDS: LEVOTHYROXINE SODIUM 0.088 MG TABLET PO SCH (06:03)
[2019-08-18] MEDS: HEPARIN SOD (PORCINE) 5,000 UNIT/ML 1 ML VIAL SUBCUT SCH (06:03)
[2019-08-18] MEDS: MAGNESIUM OXIDE 400 MG TABLET PO SCH (09:07)
[2019-08-18] MEDS: PANTOPRAZOLE SODIUM 40 MG TABLET.DR PO SCH (09:08)
[2019-08-18] MEDS: APIXABAN 5 MG TABLET PO SCH (09:08)
[2019-08-18] MEDS: METOPROLOL SUCCINATE 25 MG TAB.SR.24H PO SCH (09:09)
[2019-08-18] MEDS ORDERED: THIAMINE HCL 100 MG TABLET PO SCH (10:00)
[2019-08-18] MEDS ORDERED: HYDROCHLOROTHIAZIDE 25 MG TABLET PO SCH (10:00)
[2019-08-18] MEDS ORDERED: FOLIC ACID 1 MG TABLET PO SCH (10:00)
[2019-08-18 13:13] VITALS: BP 138/100
--- NOTE | 2019-08-19 17:31 | PDOC DISCHARGE SUMMARY ---
Impression - Admit/DC Date/PCP Admission Date/Primary Care Provider: 08/15/19 01:44 BERNIE SAVAGE MD Discharge Date: 08/18/19 - Discharge Diagnosis (1) Acute renal failure Is this a current diagnosis for this admission?: Yes (2) Alcohol withdrawal Is this a current diagnosis for this admission?: Yes (3) Nausea, vomiting, and diarrhea Is this a current diagnosis for this admission?: Yes (4) Atrial fibrillation with RVR Is this a current diagnosis for this admission?: Yes (5) COPD (chronic obstructive pulmonary disease) Is this a current diagnosis for this admission?: Yes (6) Morbid obesity with BMI of 40.0-44.9, adult Is this a current diagnosis for this admission?: Yes (7) UTI (urinary tract infection) Is this a current diagnosis for this admission?: Yes (8) Person under investigation for COVID-19 Is this a current diagnosis for this admission?: Yes - Additional Information Resuscitation Status: Full Code Referrals: BERNIE SAVAGE MD [Primary Care Provider] - 09/01/19 11:00 am (could not get through to office - stated i was caller 10, called again i was caller 12 then i called again and it stated i was caller 10 with a 45 minute wait -office to call pt with appt) Prescriptions: Folic Acid [Folvite 1 mg Tablet] 1 mg PO DAILY #30 tablet Cephalexin Monohydrate [Keflex 500 mg Capsule] 500 mg PO Q6 #28 capsule Thiamine HCl [Thiamine 100 mg Tablet] 100 mg PO DAILY #30 tablet Tramadol HCl [Ultram 50 mg Tablet] 50 mg PO Q4HP PRN #20 tablet PRN Reason: Home Medications: Albuterol Sulfate [Proair HFA Inhalation Aerosol 8.5 gm MDI] 2 puff IH Q4HP PRN 01/15/19 Levothyroxine Sodium 88 mcg PO Q6AM 01/15/19 Magnesium Oxide [Mag-Ox 400 mg Tablet] 400 mg PO DAILY 01/15/19 Fluticasone Propion/Salmeterol [Wixela 250-50 Inhub] 1 each IH Q12 02/22/19 Apixaban [Eliquis 5 mg Tablet] 5 mg PO BID #30 tablet 02/26/19 Atorvastatin Calcium [Lipitor 20 mg Tablet] 20 mg PO QHS #15 tablet 02/26/19 Folic Acid 1 mg PO DAILY 03/01/19 Omeprazole 40 mg PO BID 03/01/19 Venlafaxine HCl ER [Effexor Xr 37.5 mg Cap.sr] 37.5 mg PO QHS 03/01/19 Diltiazem HCl [Diltiazem 24Hr ER] 240 mg PO DAILY 03/12/19 Metoprolol Succinate [Toprol Xl 25 mg Tab.sr] 25 mg PO Q12 03/12/19 Albuterol Sulfate [Ventolin 0.083% Neb 2.5 mg/3 mL Ampul] 1 vial NEB Q6HP PRN 07/29/19 Alprazolam [Xanax] 0.5 mg PO Q12 08/15/19 Hydrochlorothiazide [Hydrodiuril 25 mg Tablet] 25 mg PO DAILY 08/15/19 Ibuprofen [Ibu] 600 mg PO TID 08/15/19 Potassium Chloride [K-Tab ER] 20 meq PO BID 08/15/19 Cephalexin Monohydrate [Keflex 500 mg Capsule] 500 mg PO Q6 #28 capsule 08/18/19 Folic Acid [Folvite 1 mg Tablet] 1 mg PO DAILY #30 tablet 08/18/19 Thiamine HCl [Thiamine 100 mg Tablet] 100 mg PO DAILY #30 tablet 08/18/19 Tramadol HCl [Ultram 50 mg Tablet] 50 mg PO Q4HP PRN #20 tablet 08/18/19 History of Present Illiness History of Present Illness: Per H&P by Sima Salazar: Haroon Taylor is a 48 year-old female with a past medical history of 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 She informed me she drinks 1/2 to 1 gallon of vodka daily. She says she normally has diarrhea the next day after she has been drinking a lot. Ms Taylor also informed me she has had 3 days of shortness of breath, though denies fever, chills, cough, headache, sinus pressure, sore throat, anosmia, dysguesia, or myalgias. She recently went to a friend's house to hang out and drink in which there were "about 10" people there, none of whom were wearing a mask or partaking in social distancing. SOB, vomiting, diarrhea in combination with her fairly recent social gathering are concerning for the possibility of COVID-19. She was found to have ALEJA with a Cr >8, hyperkalemia with a K+ >8, peaked T waves on EKG with bradycardia, a leukocytosis of 11.7 with a urinalysis yielding UTI given that she has also had urinary frequency and dysuria. Also during my exam, Ms Taylor was noted to be experiencing alcohol withdrawal for which she had tremors, restlessness, anxiety, diaphoresis, and when asked if she was craving alcohol, she said "yes." She denies tremors at baseline with exception of when she wakes up and needs a drink. Her K+ remains 7 following intracellular shifting of potassium, Cr is slowly downtrending, making urine, but my concern is that she will be better served in the ICU for vigilant observation of her urine output, repeat labs followed closely for ALEJA/electrolyte abnormalities, currently needs treated for hyperkalemia again, and is also experiencing alcohol withdrawal. Will send biomarkers consistent with COVID-19 and if elevated, will perform the nasal swab test. Hospital Course Hospital Course: (1) Acute renal failure Resolved; now at baseline renal function. Cr 8.64-> 1.60-> 1.15 Received IVF (2) Alcohol withdrawal Continue thiamine and folic acid. Has not required as needed Ativan >48 hours. Patient declines sobriety/alcohol rehabilitation. (3) Nausea, vomiting, and diarrhea Resolved. (4) Atrial fibrillation with RVR Resolved. Secondary to acute alcohol withdrawal. Currently rate controlled on home dose Toprol-XL 25 mg twice daily. Continue home dose Eliquis (5) COPD (chronic obstructive pulmonary disease) Stable and without exacerbation at this time. (6) Morbid obesity with BMI of 40.0-44.9, adult BMI 42.7. Dietary discretion and lifestyle modification are encouraged. (7) UTI (urinary tract infection) Received full course of ceftriaxone. (8) Person under investigation for COVID-19 COVID test negative. Physical Exam Vital Signs: Temp Pulse Resp BP Pulse Ox 97.6 F 84 19 138/100 H 96 08/18/19 13:24 08/18/19 13:24 08/18/19 13:24 08/18/19 13:24 08/18/19 13:24 Intake & Output 08/18/19 08/19/19 08/20/19 06:59 06:59 06:59 Intake Total 2480 1000 Balance 2480 1000 Weight 102.4 kg General appearance: PRESENT: no acute distress, disheveled, morbidly obese, well-developed, well-nourished Head exam: PRESENT: atraumatic, normocephalic Eye exam: PRESENT: conjunctiva pink, EOMI, PERRLA. ABSENT: scleral icterus Mouth exam: PRESENT: moist, tongue midline Teeth exam: PRESENT: poor dentation Respiratory exam: PRESENT: clear to auscultation thomas, symmetrical, unlabored, other - room air. ABSENT: rales, rhonchi, wheezes Cardiovascular exam: PRESENT: irregular rhythm, +S1, +S2. ABSENT: diastolic murmur, rubs, systolic murmur Pulses: PRESENT: normal dorsalis pedis pul Vascular exam: PRESENT: normal capillary refill GI/Abdominal exam: PRESENT: normal bowel sounds, soft. ABSENT: distended, guarding, mass, organolmegaly, rebound, tenderness Rectal exam: PRESENT: deferred Gentrourinary exam: ABSENT: indwelling catheter Extremities exam: PRESENT: full ROM. ABSENT: calf tenderness, clubbing, pedal edema Musculoskeletal exam: PRESENT: ambulatory Neurological exam: PRESENT: alert, awake, oriented to person, oriented to place, oriented to time, oriented to situation, CN II-XII grossly intact. ABSENT: motor sensory deficit Psychiatric exam: PRESENT: appropriate affect, normal mood. ABSENT: homicidal ideation, suicidal ideation Skin exam: PRESENT: dry, intact, warm. ABSENT: cyanosis, rash Results Laboratory Results: WBC 7.9 10^3/uL (4.0-10.5) 08/17/19 05:11 RBC 2.87 10^6/uL (3.72-5.28) L 08/17/19 05:11 Hgb 10.0 g/dL (12.0-15.5) L 08/17/19 05:11 Hct 28.7 % (36.0-47.0) L 08/17/19 05:11 MCV 100 fl (80-97) H 08/17/19 05:11 MCH 34.8 pg (27.0-33.4) H 08/17/19 05:11 MCHC 34.9 g/dL (32.0-36.0) 08/17/19 05:11 RDW 14.3 % (11.5-14.0) H 08/17/19 05:11 Plt Count 171 10^3/uL (150-450) 08/17/19 05:11 Lymph % (Auto) 24.7 % (13-45) 08/16/19 07:20 [place] % (Auto) 12.0 % (3-13) 08/16/19 07:20 Eos % (Auto) 2.4 % (0-6) 08/16/19 07:20 Baso % (Auto) 1.3 % (0-2) 08/16/19 07:20 Absolute Neuts (auto) 3.5 10^3/uL (1.7-8.2) 08/16/19 07:20 Absolute Lymphs (auto) 1.5 10^3/uL (0.5-4.7) 08/16/19 07:20 Absolute Monos (auto) 0.7 10^3/uL (0.1-1.4) 08/16/19 07:20 Absolute Eos (auto) 0.1 10^3/uL (0.0-0.6) 08/16/19 07:20 Absolute Basos (auto) 0.1 10^3/uL (0.0-0.2) 08/16/19 07:20 Seg Neutrophils % 59.6 % (42-78) 08/16/19 07:20 Platelet Estimate Cancelled 08/16/19 05:06 D-Dimer 2.18 ug/mL (0.00-0.50) H 08/15/19 03:34 Sodium 133.7 mmol/L (137-145) L 08/18/19 03:50 Potassium 3.9 mmol/L (3.6-5.0) 08/18/19 03:50 Chloride 96 mmol/L (98-107) L 08/18/19 03:50 Carbon Dioxide 32 mmol/L (22-30) H 08/18/19 03:50 Anion Gap 6 (5-19) 08/18/19 03:50 BUN 18 mg/dL (7-20) 08/18/19 03:50 Creatinine 1.15 mg/dL (0.52-1.25) 08/18/19 03:50 Est GFR ( Amer) > 60 (>60) 08/18/19 03:50 Est GFR (Non-Af Amer) Cancelled 08/14/19 19:00 Est GFR (MDRD) Non-Af 50 (>60) L 08/18/19 03:50 Glucose 97 mg/dL (75-110) 08/18/19 03:50 POC Glucose 105 mg/dL (70-110) 08/18/19 11:37 Calcium 8.0 mg/dL (8.4-10.2) L 08/18/19 03:50 Magnesium 1.6 mg/dL (1.6-2.3) 08/16/19 05:06 Ferritin 792.00 ng/mL (6.2-137.0) H 08/15/19 03:34 Total Bilirubin 0.8 mg/dL (0.2-1.3) 08/18/19 03:50 Direct Bilirubin 0.1 mg/dL (0.0-0.4) 08/18/19 03:50 Neonat Total Bilirubin Not Reportable 08/18/19 03:50 Neonat Direct Bilirubin Not Reportable 08/18/19 03:50 Neonat Indirect Bili Not Reportable 08/18/19 03:50 AST 93 U/L (14-36) H 08/18/19 03:50 ALT 231 U/L (<35) H 08/18/19 03:50 Alkaline Phosphatase 164 U/L (38-126) H 08/18/19 03:50 Lactate Dehydrogenase 1578 U/L (120-246) H 08/15/19 03:34 C-Reactive Protein 30.9 mg/L (<10.0) H 08/15/19 03:34 Total Protein 6.4 g/dL (6.3-8.2) 08/18/19 03:50 Albumin 3.3 g/dL (3.5-5.0) L 08/18/19 03:50 EGFR Cancelled 08/14/19 19:00 Urine Color YELLOW 08/14/19 23:00 Urine Appearance CLEAR 08/14/19 23:00 Urine pH 5.0 (5.0-9.0) 08/14/19 23:00 Ur Specific [place] 1.012 08/14/19 23:00 Urine Protein 30 mg/dL (NEGATIVE) H 08/14/19 23:00 Urine Glucose (UA) NEGATIVE mg/dL (NEGATIVE) 08/14/19 23:00 Urine Ketones NEGATIVE mg/dL (NEGATIVE) 08/14/19 23:00 Urine Blood MODERATE (NEGATIVE) H 08/14/19 23:00 Urine Nitrite NEGATIVE (NEGATIVE) 08/14/19 23:00 Urine Bilirubin NEGATIVE (NEGATIVE) 08/14/19 23:00 Urine Urobilinogen NEGATIVE mg/dL (<2.0) 08/14/19 23:00 Ur Leukocyte Esterase SMALL (NEGATIVE) H 08/14/19 23:00 Urine WBC (Auto) 24 /HPF 08/14/19 23:00 Urine RBC (Auto) 4 /HPF 08/14/19 23:00 U Hyaline Cast (Auto) 12 /LPF 08/14/19 23:00 Urine Bacteria (Auto) TRACE /HPF 08/14/19 23:00 Squamous Epi Cells Auto <1 /HPF 08/14/19 23:00 Urine Mucus (Auto) OCC /LPF 08/14/19 23:00 Urine Ascorbic Acid NEGATIVE (NEGATIVE) 08/14/19 23:00 Salicylates < 1.0 mg/dL (2.0-20.0) L 08/14/19 20:15 Urine Opiates Screen NEGATIVE 08/14/19 23:00 Urine Methadone Screen NEGATIVE 08/14/19 23:00 Acetaminophen < 10 ug/mL (10-30) L 08/14/19 20:15 Ur Barbiturates Screen UNCONFIRMED POSITIVE 08/14/19 23:00 Ur Phencyclidine Scrn NEGATIVE 08/14/19 23:00 Ur Amphetamines Screen NEGATIVE 08/14/19 23:00 U Benzodiazepines Scrn UNCONFIRMED POSITIVE 08/14/19 23:00 Urine Cocaine Screen NEGATIVE 08/14/19 23:00 U Marijuana (THC) Screen NEGATIVE 08/14/19 23:00 Serum Alcohol 11 mg/dL (NONE DETECTED) 08/14/19 20:15 COVID-19 Source NASOPHARYNGEAL 08/15/19 06:45 COVID-19 (CALVIN) NOT DETECTED 08/15/19 06:45 HIV 1&2 Antibody NEGATIVE (NEGATIVE) 08/17/19 05:11 Slides for Path Review Cancelled 08/16/19 05:06 Impressions: Chest X-Ray 08/15/19 01:32 IMPRESSION: 1. No acute pulmonary findings. Plan Plan of Treatment: Patient is discharged home in stable condition into the care of family members. She is advised to follow-up with her primary care provider within 1 week. She is instructed to take her medications as prescribed. Complete full course of antibiotic therapy for treatment of cellulitis. Do not drink alcohol. Return to the emergency department for concerning symptoms. Time Spent: Greater than 30 Minutes Stroke Is this a Stroke Patient?: No Acute Heart Failure - Is this a Heart Failure Patient?: No
[2019-08-20 06:53] LABS: CMV DNA PCR QUANT Negative (Negative)
[2019-08-26 15:36] LABS: HEPATITS B SURFACE ANTIGEN Negative (Negative)
[2019-08-27 07:04] LABS: HEPATITIS C VIRUS ANTIBODY <0.1 s/co ratio (0.0-0.9)
== END 2019-08-18 14:27 | disposition home or self-care (01) | DRG 683 ==
LOC: ER 17:34 → EH 08-15 01:44 → ICU 08-15 05:20 → 3N 08-16 11:51 → 4N 08-17 20:26
PROVIDERS: ADMIT Hospitalist; ATTEND Registered Nurse
DX: N17.9 Acute kidney failure, unspecified (principal); Z68.41 Body mass index [BMI] 40.0-44.9, adult; F10.231 Alcohol dependence with withdrawal delirium; E87.2 Acidosis; N30.01 Acute cystitis with hematuria; G40.89 Other seizures; I48.11 Longstanding persistent atrial fibrillation; E66.01 Morbid (severe) obesity due to excess calories; R11.2 Nausea with vomiting, unspecified; R19.7 Diarrhea, unspecified; E78.5 Hyperlipidemia, unspecified; E87.5 Hyperkalemia; D52.0 Dietary folate deficiency anemia; E83.42 Hypomagnesemia; E86.0 Dehydration; J43.2 Centrilobular emphysema; E03.9 Hypothyroidism, unspecified; E78.00 Pure hypercholesterolemia, unspecified; K21.9 Gastro-esophageal reflux disease without esophagitis; F31.9 Bipolar disorder, unspecified; I10 Essential (primary) hypertension; I25.2 Old myocardial infarction; Z79.01 Long term (current) use of anticoagulants; Z03.818 Encounter for observation for suspected exposure to other biological agents ruled out; Z79.899 Other long term (current) drug therapy; Z91.14 Patient's other noncompliance with medication regimen
CPT/HCPCS: 36415; 71045; 80048; 80053; 80074; 80307; 81001; 82728; 82962; 83615; 83735; 85025; 85027; 85379; 86140; 86701; 87070; 87496; 87635; 87798; 93005; 93010; 94667; 94799; 96361; 96365; 96366; 96375; 96376; 99221; 99239; 99291; C9803; J0610; J0696; J1644; J1815; J2060; J2270; J3010; J3411; J3475; J3490; J7030; J7050; J7060

== ENCOUNTER 2019-09-22 11:15 | Inpatient (IN) | payer MEDICARE, MEDICAID ==
[2019-09-22 11:46] LABS: ABSOLUTE EOSINOPHILS # (AUTO) 0.3 10^3/uL (0.0-0.6); ABSOLUTE LYMPHOCYTES (AUTO) 2.1 10^3/uL (0.5-4.7); ABSOLUTE MONOCYTES (AUTO) 0.7 10^3/uL (0.1-1.4); ABSOLUTE NEUT (AUTO) 4.7 10^3/uL (1.7-8.2); BASOPHILS % (AUTO) 0.5 % (0-2); EOSINOPHILS % (AUTO) 3.6 % (0-6); HEMATOCRIT 33.1 % (36.0-47.0); HEMOGLOBIN 11.3 g/dL (12.0-15.5); LYMPHOCYTES % (AUTO) 26.7 % (13-45); MEAN CORPUSCULAR HEMOGLOBIN 32.6 pg (27.0-33.4); MEAN CORPUSCULAR VOLUME 96 fl (80-97); MONOCYTES % (AUTO) 9.4 % (3-13); PLATELET COUNT 272 10^3/uL (150-450); RED BLOOD COUNT 3.45 10^6/uL (3.72-5.28); RED CELL DISTRIBUTION WIDTH 14.6 % (11.5-14.0); SEGMENTED NEUTROPHILS % (AUTO) 59.8 % (42-78); TOTAL CELLS COUNTED % (AUTO) 100 %; WHITE BLOOD COUNT 7.8 10^3/uL (4.0-10.5)
[2019-09-22] MEDS ORDERED: ASPIRIN 81 MG TABLET, CHEWABLE PO ONE (11:47)
[2019-09-22] MEDS ORDERED: DILTIAZEM HCL INJ 25 MG/5 ML VIAL IV ONE (11:51)
[2019-09-22] MEDS: DILTIAZEM HCL/D5W 125 MG/125 ML RTUINJ IV PRN ×2 (12:01→20:22)
--- NOTE | 2019-09-22 12:04 | RADIOLOGY REPORT (SQ) ---
EXAM DESCRIPTION: CHEST SINGLE VIEW IMAGES COMPLETED DATE/TIME: 09/22/2019 11:54 am REASON FOR STUDY: chest pain COMPARISON: 08/15/2019 EXAM PARAMETERS: NUMBER OF VIEWS: One view. TECHNIQUE: Single frontal radiographic view of the chest acquired. RADIATION DOSE: NA LIMITATIONS: Patient rotation. FINDINGS: LUNGS AND PLEURA: No opacities, masses or pneumothorax. No pleural effusion. MEDIASTINUM AND HILAR STRUCTURES: No masses. Contour normal. HEART AND VASCULAR STRUCTURES: Heart normal in size. Normal vasculature. BONES: No acute findings. HARDWARE: None in the chest. OTHER: No other significant finding. IMPRESSION: No evidence of acute cardiopulmonary abnormality. TECHNICAL DOCUMENTATION: JOB ID: [id number] 2010 [employer]- All Rights Reserved Reading location - IP/workstation name: [email or web address]
[2019-09-22 12:05] LABS: ALBUMIN 3.1 g/dL (3.5-5.0); ALKALINE PHOSPHATASE 106 U/L (38-126); ANION GAP 13 (5-19); ASPARTATE AMINO TRANSFERASE 29 U/L (14-36); BILIRUBIN,TOTAL 0.5 mg/dL (0.2-1.3); BLOOD UREA NITROGEN 13 mg/dL (7-20); CALCIUM 8.3 mg/dL (8.4-10.2); CARBON DIOXIDE 16 mmol/L (22-30); CHLORIDE 108 mmol/L (98-107); CREATINE KINASE 118 U/L (30-135); GLUCOSE 93 mg/dL (75-110); TOTAL PROTEIN 6.5 g/dL (6.3-8.2)
--- NOTE | 2019-09-22 12:06 | ER Document Report ---
ED General - General Chief Complaint: Shortness Of Breath Stated Complaint: SHORTNESS OF BREATH Time Seen by Provider: 09/22/19 11:47 Primary Care Provider: BERNIE SAVAGE MD [Primary Care Provider] - Follow up as needed TRAVEL OUTSIDE OF THE [place] IN LAST 30 DAYS: No - HPI Notes: Patient is a 48-year-old female, alcoholic, and generally poor historian, who presents to the emergency department for evaluation of shortness of breath. She states this started in the middle the night. She also notes she has new lower extremity edema, although she cannot tell me how long this edema has been there. She denies any chest pain. She said no fevers. No nausea or vomiting. She admits to drinking at least 1/5 of vodka daily, has been doing so for some time. She states she has been taking her medications as prescribed. EMS found the patient to be in rapid atrial fibrillation, she was started on a Cardizem drip. She does have a history of atrial fibrillation. Patient states her last drink of alcohol was last night. She admits she has not followed up with cardiology regarding her atrial fibrillation. - Related Data Allergies/Adverse Reactions: No Known Allergies Allergy (Verified 07/28/19 20:32) Home Medications: List reviewed from prior discharge summary Past Medical History - General Information source: Patient - Social History Smoking Status: Never Smoker Frequency of alcohol use: Heavy Family History: Hypertension - Past Medical History Cardiac Medical History: Reports: Hx Atrial Fibrillation, Hx Heart Attack - at 22 y/o, ephedrine induced, Hx Hypercholesterolemia, Hx Hypertension Denies: Hx Congestive Heart Failure, Hx Coronary Artery Disease, Hx Peripheral Vascular Disease, Hx Pulmonary Embolism, Hx Heart Murmur Pulmonary Medical History: Reports: Hx Asthma, Hx COPD Denies: Hx Bronchitis, Hx Pneumonia, Hx Respiratory Failure, Hx Sleep Apnea, Hx Tuberculosis Neurological Medical History: Reports: Hx Seizures - With alcohol withdrawal. Denies: Hx Migraine, Hx Parkinson's Disease Endocrine Medical History: Reports: Hx Hypothyroidism. Denies: Hx Diabetes Mellitus Type 1, Hx Diabetes Mellitus Type 2, Hx Hyperthyroidism Renal/ Medical History: Reports: Hx Kidney Stones. Denies: Hx End Stage Renal Disease, Hx Peritoneal Dialysis GI Medical History: Reports: Hx Gastroesophageal Reflux Disease. Denies: Hx Cirrhosis, Hx Crohn's Disease, Hx Hepatitis, Hx Hiatal Hernia, Hx Pancreatitis, Hx Ulcer, Hx Ulcerative Colitis Musculoskeletal Medical History: Denies Hx Arthritis, Denies Hx Fibromyalgia, Reports Hx Musculoskeletal Deformity, Reports Hx Musculoskeletal Trauma Skin Medical History: Denies Hx Eczema, Denies Hx Psoriasis Psychiatric Medical History: Reports: Hx Bipolar Disorder, Hx Depression Denies: Hx Schizophrenia Traumatic Medical History: Reports: Hx Fractures - R. leg. Pt. has a steel debi. Infectious Medical History: Denies: Hx Hepatitis Past Surgical History: Reports: Hx Appendectomy, Hx Cholecystectomy, Hx Orthopedic Surgery - right knee, Hx Tonsillectomy, Hx Tubal Ligation. Denies: Hx Bowel Surgery, Hx Section, Hx Hysterectomy, Hx Mastectomy - Immunizations Hx Diphtheria, Pertussis, Tetanus Vaccination: No Hx Pneumococcal Vaccination: 05/05/11 Review of Systems - Review of Systems Constitutional: Weakness Cardiovascular: See HPI -: Yes All other systems reviewed and negative Physical Exam - Vital signs Vitals: Pulse Ox 96 09/22/19 11:30 - Notes Notes: This is a 48-year-old female who appears much older than her stated age, in a mild amount of distress. She is intermittently tremulous. Vital signs reviewed, please refer to chart. Head is normocephalic, atraumatic. Pupils equal round, reactive to light. Neck is supple without meningismus. Heart is tachycardic with normal S1, S2. Lungs are clear to auscultation bilaterally. Abdomen is soft, nontender, normoactive bowel sounds throughout. Extremities without cyanosis, clubbing. Posterior calves are nontender. Peripheral pulses are equal. Skin is warm and dry. Patient is awake, alert, neurological exam is nonfocal. Course - Re-evaluation Re-evalutation: 09/22/19 12:09 Patient presents to the emergency department for evaluation. Laboratory investigations were obtained, she was placed on nurse monitoring, oxygen per nasal cannula, and IV abscess was established. She was continued on Cardizem drip, given Cardizem bolus. I do suspect some of her tachycardia and tremor is related to alcohol withdrawal. She is also administered Ativan 1 mg IV. Awaiting laboratory investigations. We will continue to monitor. 09/22/19 13:35 Notified by nursing that, approximately 2 weeks ago, patient was in fact COVID- 19 positive at [facility]. She did not initially disclose this information. Laboratory investigations are largely unremarkable. She does have an acidosis, I suspect this is chronic second to her alcoholism. Her heart rate is improved to 116. Given the fact that she has coronavirus, however, I am concerned about the possibility of pulmonary embolus in this patient. It is clear she is not very compliant with her medications. CT angiogram of the chest is ordered. She is currently stable, we will continue to monitor. 09/22/19 15:59 CT angiogram of the chest fails to reveal any significant abnormality, no pulmonary embolus or consolidation is noted. The patient states she is feeling short of breath. I go in and listen to her. She is not showing any increased work of breathing, her respiratory rate is very mildly elevated at 22. Her lungs are clear. She states she uses breathing treatments at home, but admits she really does not use them frequently. I am not inclined to give this patient albuterol, in light of her significant and continued tachycardia and her lack of wheezing. My suspicion is this is all more alcohol withdrawal related. I ordered another 2 mg of IV Ativan. I spoke with Sumanth Orellana, nurse practitioner, who will admit the patient for further care. - Vital Signs Vital signs: Temp Pulse Resp BP Pulse Ox 98.4 F 27 H 151/101 H 99 09/22/19 13:05 09/22/19 14:00 09/22/19 13:45 09/22/19 14:00 - Laboratory Result Diagrams: 09/22/19 11:27 09/22/19 11:27 Laboratory results interpreted by me: 09/22/19 09/22/19 11:27 11:27 RBC 3.45 L Hgb 11.3 L Hct 33.1 L RDW 14.6 H Chloride 108 H Carbon Dioxide 16 L Calcium 8.3 L Albumin 3.1 L - Diagnostic Test Radiology reviewed: Reports reviewed Radiology results interpreted by me: 09/22/19 16:00 Chest X-Ray 09/22/19 11:30 IMPRESSION: No evidence of acute cardiopulmonary abnormality. Chest/Abdomen CTA 09/22/19 13:33 IMPRESSION: There is no pulmonary embolus. There is no aortic aneurysm or dissection. No acute findings in the thorax. Hepatic steatosis. - EKG Interpretation by Me Additional EKG results interpreted by me: 09/22/19 12:10 Atrial fibrillation with a rate of 144 bpm. Normal axis. Borderline prolonged QT interval. Nonspecific ST and T wave changes, but no acute elevations concerning for infarction. Discharge - Discharge Clinical Impression: Alcohol abuse, Atrial fibrillation with RVR, Metabolic acidosis Condition: Stable Disposition: ADMITTED INPATIENT Admitting Provider: Nafisa (Hospitalist) - CURRENCY MACHINE OPERATOR [facility] Admitted: [facility] Referrals: BERNIE SAVAGE MD [Primary Care Provider] - Follow up as needed
[2019-09-22] MEDS ORDERED: LORAZEPAM INJ 2 MG/1 ML VIAL IV ONE ×3 (12:08→15:49)
[2019-09-22] MEDS ORDERED: ONDANSETRON HCL INJ/PF 4 MG/2 ML SDV IV ONE (12:12)
[2019-09-22] MEDS ORDERED: NORMAL SALINE 1000 ML 1,000 ML IV ONE ×2 (12:14→16:01)
[2019-09-22 12:22] LABS: CREATINE KINASE MB 1.27 ng/mL (<4.55); TROPONIN I 0.019 ng/mL
[2019-09-22 12:26] LABS: INTERNATIONAL RATION (INR) 0.91; PROTHROMBIN TIME 12.5 SEC (11.4-15.4)
--- NOTE | 2019-09-22 15:23 | RADIOLOGY REPORT (SQ) ---
EXAM DESCRIPTION: CTA CHEST IMAGES COMPLETED DATE/TIME: 09/22/2019 3:00 pm REASON FOR STUDY: COVID-19, tachycardia, eval for PE COMPARISON: 03/13/2019 TECHNIQUE: CT scan of the chest performed using helical scanning technique with dynamic intravenous contrast injection. Images reviewed with lung, soft tissue and bone windows. Reconstructed coronal and sagittal MPR images reviewed. Additional 3 dimensional post-processing performed to develop Maximal Intensity Projection images (AR P). All images stored on PACS. All CT scanners at this facility use dose modulation, iterative reconstruction, and/or weight based d osing when appropriate to reduce radiation dose to as low as reasonably achievable (ALARA). [facility]: Dose Right [facility]: CareDose [facility]: Dose Right [facility]: Teradose 4D [facility]: OrderMotion CONTRAST TYPE AND DOSE: contrast/concentration: Isovue 350.00 mmol/ml; Total Contrast Delivered: 69. 0 ml; Total Saline Delivered: 29.3 ml Contrast bolus adequate for pulmonary arteries and aorta. RENAL FUNCTION: BUN 13 creatinine 0.81 RADIATION DOSE: CT Rad equipment meets quality standard of care and radiation dose reduction techniq ues were employed. CTDIvol: 13.2 - 30.8 mGy. DLP: 1207 mGy-cm. . LIMITATIONS: None. FINDINGS: LUNGS AND PLEURA: No infiltrates, effusion, or mass. AORTA AND GREAT VESSELS: No aneurysm. No dissection. HEART: No pericardial effusion. No significant coronary artery calcifications. PULMONARY ARTERIES: No emboli visualized in the main pulmonary arteries or the segmental branches. HILAR AND MEDIASTINAL STRUCTURES: No identified masses or abnormal nodes. HARDWARE: None in the chest. UPPER ABDOMEN: The liver is somewhat hypoattenuating. THYROID AND OTHER SOFT TISSUES: No masses. No adenopathy. BONES: No acute or significant finding. 3D MIPS: Confirm above findings. OTHER: No other significant finding. IMPRESSION: There is no pulmonary embolus. There is no aortic aneurysm or dissection. No acute fin dings in the thorax. Hepatic steatosis. COMMENT: Quality ID # [id number]: Final reports with documentation of one or more dose reduction techniques (e.g., Automated exposure control, adjustment of the mA and/or kV according to patient size, use of iterative reconstruction technique) TECHNICAL DOCUMENTATION: JOB ID: [id number] 2010 [employer]- All Rights Reserved Reading location - IP/workstation name: [email or web address]
[2019-09-22] MEDS ORDERED: METOPROLOL SUCCINATE 25 MG TAB.SR.24H PO ONE (15:50)
--- NOTE | 2019-09-22 17:21 | PDOC H&P ---
History of Present Illness Admission Date/PCP: BERNIE SAVAGE MD Patient complains of: Nausea, diarrhea, lower extremity swelling, and SOB History of Present Illness: FABIANA HEAD is a 48 year old female with PMH significant for HTN, chronic A. fib, COPD, obesity, hypothyroidism, seizure disorder, recent COVID infection, and chronic alcohol dependence with frequent hospitalizations for alcohol withdrawal. In general, the patient is a poor historian. According to the patient in the ED notes the patient presented to the ED via EMS after she experienced shortness of breath at home. Of note, the patient admits to drinking a fifth of vodka daily, last drink was yesterday (06/21/2019). Upon arrival, EMS found the patient to be in Afib with RVR. A diltiazem drip was initiated which was continued and titrated in the emergency department. The patient underwent CTA of the chest and abdomen which did not reveal pulmonary embolism. Additionally, there was no significant aortic aneurysm or dissection. She was found to have hepatic steatosis. In the ED the patient received several doses of IV lorazepam and the hospitalist service was consulted to admit the patient for further evaluation and treatment. Past Medical History Cardiac Medical History: Reports: Atrial Fibrillation, Myocardial Infarction - at 22 y/o, ephedrine induced, Hyperlipidema, Hypertension Denies: Congestive Heart Failure, Coronary Artery Disease, Peripheral Vascular Disease, Pulmonary Embolism, Heart Murmur Pulmonary Medical History: Reports: Asthma, Chronic Obstructive Pulmonary Disease (COPD) Denies: Bronchitis, Pneumonia, Respiratory Failure, Sleep Apnea, Tuberculosis EENT Medical History: Reports: None Neurological Medical History: Reports: Seizures - With alcohol withdrawal Denies: Migraine Endocrine Medical History: Reports: Hypothyroidism Denies: Diabetes Mellitus Type 1, Diabetes Mellitus Type 2, Hyperthyroidism Renal/ Medical History: Denies: End Stage Renal Disease Malignancy Medical History: Reports: None GI Medical History: Reports: Gastroesophageal Reflux Disease Denies: Cirrhosis, Crohn's Disease, Hepatitis, Hiatal Hernia, Ulcerative Colitis Musculoskeltal Medical History: Denies: Arthritis, Fibromyalgia Skin Medical History: Denies: Eczema, Psoriasis Psychiatric Medical History: Reports: Bipolar Disorder, Depression Traumatic Medical History: Reports: None Hematology: Denies: Anemia, Hemophilia, Bleeding Tendencies, Heparin Induced Thrombocytopenia Infectious Medical History: Reports: None Past Surgical History Past Surgical History: Reports: Appendectomy, Cholecystectomy, Orthopedic Surgery - right knee, Tonsillectomy, Tubal Ligation Denies: Amputation, Section, Hysterectomy, Mastectomy Social History Information Source: Patient Lives with: Friend, Other - Patient is living with a friend and sleeping on her sofa Smoking Status: Never Smoker Electronic Cigarette use?: No Frequency of Alcohol Use: Heavy Hx Recreational Drug Use: No Drugs: None Hx Prescription Drug Abuse: No Family History Family History: Hypertension Parental Family History Reviewed: Yes - Mother of lung cancer father is alive and well Children Family History Reviewed: Yes Sibling(s) Family History Reviewed.: Yes Medication/Allergy Home Medications: Albuterol Sulfate [Proair HFA Inhalation Aerosol 8.5 gm MDI] 2 puff IH Q4HP PRN 01/15/19 Levothyroxine Sodium 88 mcg PO Q6AM 01/15/19 Magnesium Oxide [Mag-Ox 400 mg Tablet] 400 mg PO DAILY 01/15/19 Fluticasone Propion/Salmeterol [Wixela 250-50 Inhub] 1 each IH Q12 02/22/19 Apixaban [Eliquis 5 mg Tablet] 5 mg PO BID #30 tablet 02/26/19 Atorvastatin Calcium [Lipitor 20 mg Tablet] 20 mg PO QHS #15 tablet 02/26/19 Folic Acid 1 mg PO DAILY 03/01/19 Omeprazole 40 mg PO BID 03/01/19 Venlafaxine HCl ER [Effexor Xr 37.5 mg Cap.sr] 37.5 mg PO QHS 03/01/19 Diltiazem HCl [Diltiazem 24Hr ER] 240 mg PO DAILY 03/12/19 Metoprolol Succinate [Toprol Xl 25 mg Tab.sr] 25 mg PO Q12 03/12/19 Albuterol Sulfate [Ventolin 0.083% Neb 2.5 mg/3 mL Ampul] 1 vial NEB Q6HP PRN 07/29/19 Alprazolam [Xanax] 0.5 mg PO Q12 08/15/19 Hydrochlorothiazide [Hydrodiuril 25 mg Tablet] 25 mg PO DAILY 08/15/19 Ibuprofen [Ibu] 600 mg PO TID 08/15/19 Potassium Chloride [K-Tab ER] 20 meq PO BID 08/15/19 Cephalexin Monohydrate [Keflex 500 mg Capsule] 500 mg PO Q6 #28 capsule 08/18/19 Folic Acid [Folvite 1 mg Tablet] 1 mg PO DAILY #30 tablet 08/18/19 Thiamine HCl [Thiamine 100 mg Tablet] 100 mg PO DAILY #30 tablet 08/18/19 Tramadol HCl [Ultram 50 mg Tablet] 50 mg PO Q4HP PRN #20 tablet 08/18/19 Allergies/Adverse Reactions: No Known Allergies Allergy (Verified 07/28/19 20:32) Review of Systems ROS unobtainable: Other - Patient is poor historian and does not give consistent answers to questions Constitutional: PRESENT: weakness. ABSENT: chills, fatigue, fever(s), night sweats Eyes: ABSENT: visual disturbances Ears: ABSENT: hearing changes Nose, Mouth, and Throat: ABSENT: headache(s), sore throat, vertigo Cardiovascular: PRESENT: edema. ABSENT: chest pain, orthropnea, palpitations Respiratory: PRESENT: cough, dyspnea. ABSENT: hemoptysis Gastrointestinal: PRESENT: diarrhea, heartburn, nausea. ABSENT: abdominal pain, coffee ground emesis, constipation, dysphagia, hematemesis, hematochezia, melena, vomiting Genitourinary: PRESENT: other - Patient reports being incontinent of urine Musculoskeletal: PRESENT: muscle weakness. ABSENT: back pain Integumentary: ABSENT: diaphoresis Neurological: PRESENT: tremor(s). ABSENT: abnormal movements, abnormal speech, confusion, convulsions, focal weakness, frequent falls, lack of coordination, syncope Psychiatric: PRESENT: anxiety, depression Endocrine: PRESENT: heat intolerance. ABSENT: cold intolerance, polydipsia, polyphagia, polyuria Hematologic/Lymphatic: ABSENT: easy bleeding, easy bruising Physical Exam Vital Signs: Temp Pulse Resp BP Pulse Ox 98.4 F 20 144/93 H 97 09/22/19 13:05 09/22/19 16:15 09/22/19 16:15 09/22/19 16:15 Intake & Output 09/21/19 09/22/19 09/23/19 06:59 06:59 06:59 Intake Total 1000 Balance 1000 Weight 94 kg General appearance: PRESENT: no acute distress, cooperative, obese Head exam: PRESENT: atraumatic, normocephalic Eye exam: PRESENT: conjunctiva pink Ear exam: PRESENT: normal external ear exam Mouth exam: PRESENT: moist, tongue midline Neck exam: ABSENT: JVD Respiratory exam: PRESENT: decreased breath sounds - Air entry diminished at bases bilaterally, prolonged expiratory phas, symmetrical, unlabored. ABSENT: accessory muscle use Cardiovascular exam: PRESENT: irregular rhythm, +S1, +S2, tachycardia Pulses: PRESENT: normal carotid pulses Vascular exam: PRESENT: normal capillary refill GI/Abdominal exam: PRESENT: normal bowel sounds, soft. ABSENT: distended, tenderness Rectal exam: PRESENT: deferred Extremities exam: PRESENT: other - 1 mm nonpitting pretibial edema bilaterally. ABSENT: calf tenderness Neurological exam: PRESENT: alert, awake, oriented to person, oriented to place, oriented to time, oriented to situation Psychiatric exam: PRESENT: unusual affect. ABSENT: agitated, anxious, homicidal ideation, suicidal ideation Skin exam: PRESENT: dry, normal color, warm Results Laboratory Results: 09/22/19 11:27 09/22/19 11:27 09/22/19 09/22/19 11:27 11:27 WBC 7.8 RBC 3.45 L Hgb 11.3 L Hct 33.1 L MCV 96 MCH 32.6 MCHC 34.0 RDW 14.6 H Plt Count 272 Seg Neutrophils % 59.8 Sodium 137.2 Potassium 4.0 Chloride 108 H Carbon Dioxide 16 L Anion Gap 13 BUN 13 Creatinine 0.81 Est GFR ( Amer) > 60 Glucose 93 Calcium 8.3 L Total Bilirubin 0.5 AST 29 Alkaline Phosphatase 106 Total Protein 6.5 Albumin 3.1 L 09/22/19 09/22/19 11:27 11:27 Creatine Kinase 118 CK-MB (CK-2) 1.27 Troponin I 0.019 Impressions: Chest X-Ray 09/22/19 11:30 IMPRESSION: No evidence of acute cardiopulmonary abnormality. Chest/Abdomen CTA 09/22/19 13:33 IMPRESSION: There is no pulmonary embolus. There is no aortic aneurysm or dissection. No acute findings in the thorax. Hepatic steatosis. Assessment and Plan - Diagnosis (1) Atrial fibrillation with RVR Is this a current diagnosis for this admission?: Yes Plan: Continue diltiazem drip for now, transition back to p.o. once heart rate better controlled Patient received dose of metoprolol 25 mg p.o. in the ED Continue metoprolol succinate 25 mg p.o. every 12 hours Continue apixaban 5 mg p.o. twice daily (2) Alcohol abuse Is this a current diagnosis for this admission?: Yes Plan: Discussed patient's ongoing EtOH abuse with the patient Initiate MVI 1 tab p.o. daily Continue folic acid 1 mg p.o. daily Continue thiamine 100 mg p.o. daily (3) Alcohol withdrawal Qualifiers: Complication of substance-induced condition: with unspecified complication Qualified Code(s): F10.239 - Alcohol dependence with withdrawal, unspecified Is this a current diagnosis for this admission?: Yes Plan: [facility] protocol IV Lorazepam, titrate as needed (4) Anemia Qualifiers: Anemia type: folate deficiency Folate deficiency anemia type: dietary Qualified Code(s): D52.0 - Dietary folate deficiency anemia Is this a current diagnosis for this admission?: Yes Plan: 2/2 alcoholism No treatment indicated at this time Monitor (5) Hypertension Qualifiers: Hypertension type: essential hypertension Qualified Code(s): I10 - Essential (primary) hypertension Is this a current diagnosis for this admission?: Yes Plan: Continue beta-donis as noted above Transition back to p.o. diltiazem once rate better controlled Hold HCTZ for now (6) Dyslipidemia Is this a current diagnosis for this admission?: Yes Plan: Continue atorvastatin 20 mg p.o. daily at bedtime (7) Hypothyroidism Qualifiers: Hypothyroidism type: acquired Qualified Code(s): E03.9 - Hypothyroidism, unspecified Is this a current diagnosis for this admission?: Yes Plan: Continue levothyroxine 88 mcg p.o. daily (8) GERD (gastroesophageal reflux disease) Is this a current diagnosis for this admission?: Yes Plan: Continue omeprazole 40 mg p.o. daily - Time Time Spent with patient: 35 or more minutes Medications reviewed and adjusted accordingly: Yes Anticipated Discharge Disposition: Home, Self Care Anticipated Discharge Timeframe: within 72 hours
--- NOTE | 2019-09-22 18:51 | EKG REPORT ---
SEVERITY:- ABNORMAL ECG - ATRIAL FIBRILLATION, V-RATE 101-169 BORDERLINE PROLONGED QT INTERVAL : Confirmed by: Marco Somers MD 22-Sep-2019 18:50:42
[2019-09-22] MEDS: FOLIC ACID 1 MG TABLET PO SCH (19:28)
[2019-09-22] MEDS: APIXABAN 5 MG TABLET PO SCH (19:28)
[2019-09-22] MEDS: THIAMINE HCL 100 MG TABLET PO SCH (19:28)
[2019-09-22] MEDS: METOPROLOL SUCCINATE 25 MG TAB.SR.24H PO SCH (22:46)
[2019-09-22] MEDS: ATORVASTATIN CALCIUM 20 MG TABLET PO SCH (22:46)
[2019-09-22] MEDS: VENLAFAXINE HCL 37.5 MG CAP.SR.24H PO SCH (22:46)
[2019-09-22] MEDS: LORAZEPAM INJ 2 MG/1 ML VIAL IV PRN (22:46)
[2019-09-22] MEDS: NORMAL SALINE 1000 ML 1,000 ML IV PRN (22:47)
[2019-09-23] MEDS: DILTIAZEM HCL/D5W 125 MG/125 ML RTUINJ IV PRN ×2 (04:12→13:26)
[2019-09-23 05:44] LABS: ABSOLUTE BASOPHILS # (AUTO) 0.1 10^3/uL (0.0-0.2); ABSOLUTE EOSINOPHILS # (AUTO) 0.3 10^3/uL (0.0-0.6); ABSOLUTE LYMPHOCYTES (AUTO) 1.4 10^3/uL (0.5-4.7); ABSOLUTE MONOCYTES (AUTO) 0.7 10^3/uL (0.1-1.4); ABSOLUTE NEUT (AUTO) 4.7 10^3/uL (1.7-8.2); BASOPHILS % (AUTO) 1.4 % (0-2); EOSINOPHILS % (AUTO) 4.6 % (0-6); HEMATOCRIT 30.6 % (36.0-47.0); HEMOGLOBIN 10.5 g/dL (12.0-15.5); LYMPHOCYTES % (AUTO) 19.8 % (13-45); MEAN CORPUSCULAR HEMOGLOBIN 32.5 pg (27.0-33.4); MEAN CORPUSCULAR HGB CONC 34.3 g/dL (32.0-36.0); MEAN CORPUSCULAR VOLUME 95 fl (80-97); MONOCYTES % (AUTO) 9.7 % (3-13); PLATELET COUNT 194 10^3/uL (150-450); RED BLOOD COUNT 3.23 10^6/uL (3.72-5.28); RED CELL DISTRIBUTION WIDTH 14.4 % (11.5-14.0); SEGMENTED NEUTROPHILS % (AUTO) 64.5 % (42-78); TOTAL CELLS COUNTED % (AUTO) 100 %; WHITE BLOOD COUNT 7.2 10^3/uL (4.0-10.5)
[2019-09-23] MEDS: LEVOTHYROXINE SODIUM 0.088 MG TABLET PO SCH (05:52)
[2019-09-23 06:12] LABS: ANION GAP 7 (5-19); BLOOD UREA NITROGEN 9 mg/dL (7-20); CALCIUM 7.9 mg/dL (8.4-10.2); CARBON DIOXIDE 23 mmol/L (22-30); CHLORIDE 106 mmol/L (98-107); GLUCOSE 93 mg/dL (75-110)
[2019-09-23] MEDS: PANTOPRAZOLE SODIUM 40 MG TABLET.DR PO SCH (08:12)
[2019-09-23] MEDS: APIXABAN 5 MG TABLET PO SCH ×2 (09:24→19:04)
[2019-09-23] MEDS: THIAMINE HCL 100 MG TABLET PO SCH (09:24)
[2019-09-23] MEDS: METOPROLOL SUCCINATE 25 MG TAB.SR.24H PO SCH ×2 (09:24→21:08)
[2019-09-23] MEDS: MULTIVITAMIN TABLET PO SCH (09:24)
[2019-09-23] MEDS: FOLIC ACID 1 MG TABLET PO SCH (09:24)
--- NOTE | 2019-09-23 09:39 | CDI QUERY ---
<DYLLAN PIERRE - Last Filed: 09/23/19 09:37> CDI Query CDI Review: We are seeking further clarification of documentation to reflect the severity of illness of your patient. Noted in the H&P: Cardiac Medical History: Reports: Atrial Fibrillation, Atrial fibrillation with RVR Is this a current diagnosis for this admission?: Yes Plan: Continue diltiazem drip for now, transition back to p.o. once heart rate better controlled Patient received dose of metoprolol 25 mg p.o. in the ED Continue metoprolol succinate 25 mg p.o. every 12 hours Continue apixaban 5 mg p.o. twice daily Based on your medical judgement, can you further clarify in the Progress Notes: Paroxysmal A-fib Persistent A-fib Chronic (permanent) A-fib Other Unable to determine Thank you for your consideration. GUY Laboy RN Clinical Hr Advisor Physician Advisor <DICKSON FRAUSTO - Last Filed: 09/23/19 12:37> CDI Query Agree with Query: Yes - Will clarify in progress note 09/23/19
--- NOTE | 2019-09-23 17:11 | PDOC PROGRESS REPORT ---
Subjective Progress Note for:: 09/23/19 Subjective:: No signs of EtOH withdrawal. No anxiety or agitation. Patient states that she feels "pretty well" Reason For Visit: ETOH WITHDRAWL, AFIB WITH RVR Physical Exam Vital Signs: Temp Pulse Resp BP Pulse Ox 98.5 F 78 20 111/67 100 09/23/19 15:37 09/23/19 16:00 09/23/19 15:37 09/23/19 16:00 09/23/19 15:37 Intake & Output 09/22/19 09/23/19 09/24/19 06:59 06:59 06:59 Intake Total 1242 1125 Output Total 700 Balance 542 1125 Weight 98 kg General appearance: PRESENT: no acute distress, cooperative, morbidly obese Head exam: PRESENT: atraumatic, normocephalic Eye exam: PRESENT: conjunctiva pink Mouth exam: PRESENT: moist, tongue midline Neck exam: ABSENT: JVD Respiratory exam: PRESENT: clear to auscultation thomas, decreased breath sounds - Air entry diminished at baselines bilaterally, prolonged expiratory phas, symmetrical, unlabored Cardiovascular exam: PRESENT: irregular rhythm, +S1, +S2 Pulses: PRESENT: normal radial pulses Vascular exam: PRESENT: normal capillary refill GI/Abdominal exam: PRESENT: normal bowel sounds, soft. ABSENT: distended, tenderness Rectal exam: PRESENT: deferred Extremities exam: ABSENT: calf tenderness Neurological exam: PRESENT: alert, awake, oriented to person, oriented to place, oriented to time, oriented to situation, CN II-XII grossly intact Psychiatric exam: PRESENT: normal mood. ABSENT: agitated, anxious Skin exam: PRESENT: dry, normal color, warm Results Laboratory Results: 09/23/19 04:54 09/23/19 04:54 09/23/19 09/23/19 09/23/19 04:54 04:54 04:54 WBC 7.2 RBC 3.23 L Hgb 10.5 L Hct 30.6 L MCV 95 MCH 32.5 MCHC 34.3 RDW 14.4 H Plt Count 194 Seg Neutrophils % 64.5 Sodium 135.5 L Potassium 4.0 Chloride 106 Carbon Dioxide 23 Anion Gap 7 BUN 9 Creatinine 0.73 Est GFR ( Amer) > 60 Glucose 93 Calcium 7.9 L TSH 3.23 09/22/19 09/22/19 09/22/19 11:27 11:27 16:00 Creatine Kinase 118 CK-MB (CK-2) 1.27 Troponin I 0.019 0.023 09/22/19 09/23/19 23:24 04:54 Creatine Kinase CK-MB (CK-2) Troponin I 0.015 < 0.012 Impressions: Chest X-Ray 09/22/19 11:30 IMPRESSION: No evidence of acute cardiopulmonary abnormality. Chest/Abdomen CTA 09/22/19 13:33 IMPRESSION: There is no pulmonary embolus. There is no aortic aneurysm or dissection. No acute findings in the thorax. Hepatic steatosis. Assessment and Plan - Diagnosis (1) Atrial fibrillation with RVR Is this a current diagnosis for this admission?: Yes Plan: Patient's atrial fibrillation is chronic and persistent Patient continues to become significantly tachycardic with activity Continue diltiazem drip for now, will likely attempt to transition to p.o. diltiazem in the a.m. Continue metoprolol succinate 25 mg p.o. every 12 hours Continue apixaban 5 mg p.o. twice daily (2) Alcohol abuse Is this a current diagnosis for this admission?: Yes Plan: Continue MVI 1 tab p.o. daily Continue folic acid 1 mg p.o. daily Continue thiamine 100 mg p.o. daily (3) Alcohol withdrawal Qualifiers: Complication of substance-induced condition: with unspecified complication Qualified Code(s): F10.239 - Alcohol dependence with withdrawal, unspecified Is this a current diagnosis for this admission?: Yes Plan: Patient with no overt signs of EtOH withdrawal In review of patient's MAR it does not appear that she is required any lorazepam today Continue [facility] protocol IV Lorazepam, titrate as needed (4) Anemia Qualifiers: Anemia type: folate deficiency Folate deficiency anemia type: dietary Qualified Code(s): D52.0 - Dietary folate deficiency anemia Is this a current diagnosis for this admission?: Yes Plan: 2/2 alcoholism Likely a delusional component to decrease in H/H No treatment indicated at this time Guaiac stool Check iron studies in a.m. Monitor (5) Hypertension Qualifiers: Hypertension type: essential hypertension Qualified Code(s): I10 - Essential (primary) hypertension Is this a current diagnosis for this admission?: Yes Plan: Adequate BP control Continue beta-donis as noted above Transition back to p.o. diltiazem once rate better controlled Continue to hold HCTZ for now (6) Dyslipidemia Is this a current diagnosis for this admission?: Yes Plan: Continue atorvastatin 20 mg p.o. daily at bedtime (7) Hypothyroidism Qualifiers: Hypothyroidism type: acquired Qualified Code(s): E03.9 - Hypothyroidism, unspecified Is this a current diagnosis for this admission?: Yes Plan: TSH 3.23 Continue levothyroxine 88 mcg p.o. daily (8) GERD (gastroesophageal reflux disease) Is this a current diagnosis for this admission?: Yes Plan: Continue omeprazole 40 mg p.o. daily - Time Time Spent with patient: 25-34 minutes Medications reviewed and adjusted accordingly: Yes Anticipated Discharge Disposition: Home, Self Care Anticipated Discharge Timeframe: within 48 hours
[2019-09-23] MEDS: ATORVASTATIN CALCIUM 20 MG TABLET PO SCH (21:07)
[2019-09-23] MEDS: NORMAL SALINE 1000 ML 1,000 ML IV PRN (21:07)
[2019-09-23] MEDS: VENLAFAXINE HCL 37.5 MG CAP.SR.24H PO SCH (21:07)
[2019-09-24] MEDS: LORAZEPAM INJ 2 MG/1 ML VIAL IV PRN ×3 (00:06→23:31)
[2019-09-24] MEDS: DILTIAZEM HCL/D5W 125 MG/125 ML RTUINJ IV PRN (02:00)
[2019-09-24 05:15] LABS: ABSOLUTE RETICS # 0.038 10^6/uL (0.028-0.122); HEMATOCRIT 29.5 % (36.0-47.0); HEMOGLOBIN 10.2 g/dL (12.0-15.5); MEAN CORPUSCULAR HEMOGLOBIN 32.8 pg (27.0-33.4); MEAN CORPUSCULAR HGB CONC 34.6 g/dL (32.0-36.0); MEAN CORPUSCULAR VOLUME 95 fl (80-97); PLATELET COUNT 175 10^3/uL (150-450); RED BLOOD COUNT 3.11 10^6/uL (3.72-5.28); RED CELL DISTRIBUTION WIDTH 13.7 % (11.5-14.0); RETICULOCYTE COUNT (AUTO) 1.21 % (0.66-2.85); WHITE BLOOD COUNT 10.4 10^3/uL (4.0-10.5)
[2019-09-24 05:29] LABS: ANION GAP 6 (5-19); BLOOD UREA NITROGEN 8 mg/dL (7-20); CALCIUM 7.5 mg/dL (8.4-10.2); CARBON DIOXIDE 22 mmol/L (22-30); CHLORIDE 107 mmol/L (98-107); GLUCOSE 98 mg/dL (75-110); IRON(TIBC) 39.2 ug/dL (37-170); POTASSIUM 3.8 mmol/L (3.6-5.0)
[2019-09-24] MEDS: LEVOTHYROXINE SODIUM 0.088 MG TABLET PO SCH (05:56)
[2019-09-24 06:35] LABS: FOLATE > 20.00 ng/mL (>2.76)
[2019-09-24] MEDS: FLUTICASONE/VILANTEROL 200-25 MCG/DOSE IH SCH (09:53)
[2019-09-24] MEDS: DILTIAZEM HCL 240 MG CAPSULE.CR PO SCH (09:53)
[2019-09-24] MEDS: THIAMINE HCL 100 MG TABLET PO SCH (09:53)
[2019-09-24] MEDS: METOPROLOL SUCCINATE 25 MG TAB.SR.24H PO SCH ×2 (09:53→21:03)
[2019-09-24] MEDS: FOLIC ACID 1 MG TABLET PO SCH (09:53)
[2019-09-24] MEDS: APIXABAN 5 MG TABLET PO SCH ×2 (09:53→17:13)
[2019-09-24] MEDS: PANTOPRAZOLE SODIUM 40 MG TABLET.DR PO SCH (09:54)
[2019-09-24] MEDS: MULTIVITAMIN TABLET PO SCH (09:55)
[2019-09-24] MEDS ORDERED: FLUTICASONE PROPION IH SCH (10:00)
[2019-09-24] MEDS ORDERED: SALMETEROL IH SCH (10:00)
--- NOTE | 2019-09-24 16:49 | PDOC PROGRESS REPORT ---
Subjective Progress Note for:: 09/24/19 Subjective:: Patient complains of nonproductive cough. Mildly tremulous Reason For Visit: ETOH WITHDRAWL, AFIB WITH RVR Physical Exam Vital Signs: Temp Pulse Resp BP Pulse Ox 98.2 F 94 16 160/80 H 92 09/24/19 16:00 09/24/19 16:00 09/24/19 16:00 09/24/19 16:00 09/24/19 16:00 Intake & Output 09/23/19 09/24/19 09/25/19 06:59 06:59 06:59 Intake Total 1242 2250 112 Output Total 700 1025 Balance 542 1225 112 Weight 98 kg 99.5 kg General appearance: PRESENT: no acute distress, morbidly obese Head exam: PRESENT: atraumatic, normocephalic Eye exam: PRESENT: conjunctiva pink Mouth exam: PRESENT: moist, tongue midline Neck exam: ABSENT: JVD Respiratory exam: PRESENT: clear to auscultation thomas, symmetrical, unlabored. ABSENT: accessory muscle use Cardiovascular exam: PRESENT: irregular rhythm, +S1, +S2 Pulses: PRESENT: normal radial pulses Vascular exam: PRESENT: normal capillary refill GI/Abdominal exam: PRESENT: normal bowel sounds, soft. ABSENT: distended, tenderness Rectal exam: PRESENT: deferred Extremities exam: ABSENT: calf tenderness, pedal edema Neurological exam: PRESENT: alert, awake, oriented to person, oriented to place, oriented to time, oriented to situation, CN II-XII grossly intact Psychiatric exam: PRESENT: normal mood, other - Mildly tremulous. ABSENT: agitated, anxious Focused psych exam: ABSENT: delusional, restlessness Skin exam: PRESENT: dry, normal color, warm Results Laboratory Results: 09/24/19 04:37 09/24/19 04:37 09/24/19 09/24/19 04:37 04:37 WBC 10.4 RBC 3.11 L Hgb 10.2 L Hct 29.5 L MCV 95 MCH 32.8 MCHC 34.6 RDW 13.7 Plt Count 175 Retic Count (auto) 1.21 Sodium 134.7 L Potassium 3.8 Chloride 107 Carbon Dioxide 22 Anion Gap 6 BUN 8 Creatinine 0.74 Est GFR ( Amer) > 60 Glucose 98 Calcium 7.5 L Iron 39.2 TIBC 239 L % Saturation 16 Ferritin 105.00 Vitamin B12 924.0 Folate > 20.00 09/22/19 09/22/19 09/22/19 11:27 11:27 16:00 Creatine Kinase 118 CK-MB (CK-2) 1.27 Troponin I 0.019 0.023 09/22/19 09/23/19 23:24 04:54 Creatine Kinase CK-MB (CK-2) Troponin I 0.015 < 0.012 Impressions: Chest X-Ray 09/22/19 11:30 IMPRESSION: No evidence of acute cardiopulmonary abnormality. Chest/Abdomen CTA 09/22/19 13:33 IMPRESSION: There is no pulmonary embolus. There is no aortic aneurysm or dissection. No acute findings in the thorax. Hepatic steatosis. Assessment and Plan - Diagnosis (1) Atrial fibrillation with RVR Is this a current diagnosis for this admission?: Yes Plan: Patient's atrial fibrillation is chronic and persistent Heart rate much better controlled Patient transitioned off diltiazem drip this a.m. and is now back onto oral diltiazem Continue diltiazem CD 240 mg p.o. daily Continue metoprolol succinate 25 mg p.o. every 12 hours Continue apixaban 5 mg p.o. twice daily (2) Alcohol abuse Is this a current diagnosis for this admission?: Yes Plan: Continue MVI 1 tab p.o. daily Continue thiamine 100 mg p.o. daily Patient's folic acid level > 20, stop folic acid supplement (3) Alcohol withdrawal Qualifiers: Complication of substance-induced condition: with unspecified complication Qualified Code(s): F10.239 - Alcohol dependence with withdrawal, unspecified Is this a current diagnosis for this admission?: Yes Plan: Slighty tremulous Patient has only received 1 mg of IV lorazepam today Continue CIWA protocol Continue IV Lorazepam as needed (4) Anemia Qualifiers: Anemia type: folate deficiency Folate deficiency anemia type: dietary Qualified Code(s): D52.0 - Dietary folate deficiency anemia Is this a current diagnosis for this admission?: Yes Plan: 2/2 alcoholism H/H stable No treatment indicated at this time Guaiac stool, patient has not had stool Iron studies reviewed Monitor (5) Hypertension Qualifiers: Hypertension type: essential hypertension Qualified Code(s): I10 - Essential (primary) hypertension Is this a current diagnosis for this admission?: Yes Plan: Last documented BP elevated however prior BPs acceptable Continue beta-donis as noted above Patient is now back on p.o. diltiazem Continue to hold HCTZ for now, reevaluate tomorrow (6) Dyslipidemia Is this a current diagnosis for this admission?: Yes Plan: Continue atorvastatin 20 mg p.o. daily at bedtime (7) Hypothyroidism Qualifiers: Hypothyroidism type: acquired Qualified Code(s): E03.9 - Hypothyroidism, unspecified Is this a current diagnosis for this admission?: Yes Plan: TSH 3.23 Continue levothyroxine 88 mcg p.o. daily (8) GERD (gastroesophageal reflux disease) Is this a current diagnosis for this admission?: Yes Plan: Continue omeprazole 40 mg p.o. daily - Time Time Spent with patient: 25-34 minutes Medications reviewed and adjusted accordingly: Yes Anticipated Discharge Disposition: Home, Self Care Anticipated Discharge Timeframe: within 48 hours
[2019-09-24] MEDS: VENLAFAXINE HCL 37.5 MG CAP.SR.24H PO SCH (21:03)
[2019-09-24] MEDS: ATORVASTATIN CALCIUM 20 MG TABLET PO SCH (21:03)
[2019-09-24] MEDS: NORMAL SALINE 1000 ML 1,000 ML IV PRN (21:05)
[2019-09-25] MEDS: LEVOTHYROXINE SODIUM 0.088 MG TABLET PO SCH (06:30)
[2019-09-25 07:14] LABS: ALBUMIN 2.9 g/dL (3.5-5.0); ALKALINE PHOSPHATASE 72 U/L (38-126); ANION GAP 9 (5-19); ASPARTATE AMINO TRANSFERASE 21 U/L (14-36); BILIRUBIN,TOTAL 0.7 mg/dL (0.2-1.3); BLOOD UREA NITROGEN 9 mg/dL (7-20); CALCIUM 7.3 mg/dL (8.4-10.2); CARBON DIOXIDE 23 mmol/L (22-30); CHLORIDE 103 mmol/L (98-107); GLUCOSE 100 mg/dL (75-110); POTASSIUM 3.7 mmol/L (3.6-5.0); TOTAL PROTEIN 6.2 g/dL (6.3-8.2)
[2019-09-25] MEDS: APIXABAN 5 MG TABLET PO SCH ×2 (09:42→18:20)
[2019-09-25] MEDS: METOPROLOL SUCCINATE 25 MG TAB.SR.24H PO SCH ×2 (09:42→21:16)
[2019-09-25] MEDS: PANTOPRAZOLE SODIUM 40 MG TABLET.DR PO SCH (09:42)
[2019-09-25] MEDS: MULTIVITAMIN TABLET PO SCH (09:42)
[2019-09-25] MEDS: FLUTICASONE/VILANTEROL 200-25 MCG/DOSE IH SCH (09:44)
[2019-09-25] MEDS: THIAMINE HCL 100 MG TABLET PO SCH (09:44)
[2019-09-25] MEDS: DILTIAZEM HCL 240 MG CAPSULE.CR PO SCH (09:44)
[2019-09-25] MEDS: CALCIUM CARBONATE 600 MG/VITAMIN D3 400 UNIT TABLET PO SCH ×2 (09:44→18:20)
--- NOTE | 2019-09-25 11:36 | RADIOLOGY REPORT (SQ) ---
EXAM DESCRIPTION: CHEST SINGLE VIEW IMAGES COMPLETED DATE/TIME: 09/25/2019 9:35 am REASON FOR STUDY: Productive cough COMPARISON: 09/22/2019 NUMBER OF VIEWS: One view. TECHNIQUE: Single frontal radiographic image of the chest acquired. LIMITATIONS: None. FINDINGS: LUNGS AND PLEURA: Subsegmental airspace disease in the right lower lobe. Trace right pleu ral effusion. Left lung is clear. MEDIASTINUM AND HEART: Stable heart size and mediastinal structures. BONY STRUCTURES: No acute findings. HARDWARE: None. OTHER: No other significant finding. IMPRESSION: Right lower lobe pneumonia. TECHNICAL DOCUMENTATION: JOB ID: [id number] Reading location - IP/workstation name: [email or web address]
--- NOTE | 2019-09-25 14:27 | PDOC PROGRESS REPORT ---
Subjective Progress Note for:: 09/25/19 Subjective:: Patient complains of ongoing productive cough Reason For Visit: ETOH WITHDRAWL, AFIB WITH RVR Physical Exam Vital Signs: Temp Pulse Resp BP Pulse Ox 98.0 F 87 20 131/96 H 94 09/25/19 11:36 09/25/19 11:36 09/25/19 11:36 09/25/19 11:36 09/25/19 11:36 Intake & Output 09/24/19 09/25/19 09/26/19 06:59 06:59 06:59 Intake Total 2250 1372 Output Total 1025 600 Balance 1225 772 Weight 99.5 kg 99.7 kg General appearance: PRESENT: no acute distress, cooperative, morbidly obese Head exam: PRESENT: atraumatic, normocephalic Eye exam: PRESENT: conjunctiva pink Mouth exam: PRESENT: moist, tongue midline Neck exam: ABSENT: JVD Respiratory exam: PRESENT: clear to auscultation thomas, decreased breath sounds - R>L, prolonged expiratory phas, symmetrical, unlabored. ABSENT: accessory musc le use Cardiovascular exam: PRESENT: irregular rhythm, +S1, +S2 Vascular exam: PRESENT: normal capillary refill GI/Abdominal exam: PRESENT: normal bowel sounds, soft. ABSENT: distended, tenderness Rectal exam: PRESENT: deferred Extremities exam: ABSENT: calf tenderness, pedal edema Neurological exam: PRESENT: alert, awake, oriented to person, oriented to place, oriented to time, oriented to situation, CN II-XII grossly intact Psychiatric exam: PRESENT: normal mood, unusual affect. ABSENT: agitated, anxious Skin exam: PRESENT: dry, normal color, warm Results Laboratory Results: 09/24/19 04:37 09/25/19 06:18 09/24/19 09/25/19 21:17 06:18 Sodium 134.7 L Potassium 3.7 Chloride 103 Carbon Dioxide 23 Anion Gap 9 BUN 9 Creatinine 0.70 Est GFR ( Amer) > 60 Glucose 100 Calcium 7.3 L Total Bilirubin 0.7 AST 21 Alkaline Phosphatase 72 Total Protein 6.2 L Albumin 2.9 L Stool Occult Blood NEGATIVE 09/22/19 09/22/19 09/22/19 11:27 11:27 16:00 Creatine Kinase 118 CK-MB (CK-2) 1.27 Troponin I 0.019 0.023 09/22/19 09/23/19 23:24 04:54 Creatine Kinase CK-MB (CK-2) Troponin I 0.015 < 0.012 Impressions: Chest/Abdomen CTA 09/22/19 13:33 IMPRESSION: There is no pulmonary embolus. There is no aortic aneurysm or dissection. No acute findings in the thorax. Hepatic steatosis. Chest X-Ray 09/25/19 00:00 IMPRESSION: Right lower lobe pneumonia. Assessment and Plan - Diagnosis (1) Right lower lobe pneumonia Is this a current diagnosis for this admission?: Yes Plan: Reports productive cough CXR reviewed and reveals right lower lobe pneumonia Start ceftriaxone 2 g IV every 24 hours Start doxycycline 100 mg IV every 12 hours (2) Atrial fibrillation with RVR Is this a current diagnosis for this admission?: Yes Plan: Patient's atrial fibrillation is chronic and persistent But rate improved however patient continues to have some spikes to greater than 100 Continue diltiazem CD 240 mg p.o. daily Increase metoprolol succinate to 37.5 mg p.o. every 12 hours Continue apixaban 5 mg p.o. twice daily (3) Alcohol abuse Is this a current diagnosis for this admission?: Yes Plan: Continue MVI 1 tab p.o. daily Continue thiamine 100 mg p.o. daily Patient's folic acid level > 20, folic acid supplement stopped (4) Alcohol withdrawal Qualifiers: Complication of substance-induced condition: with unspecified complication Qualified Code(s): F10.239 - Alcohol dependence with withdrawal, unspecified Is this a current diagnosis for this admission?: Yes Plan: Patient states that she does not feel that she is having any withdrawal symptoms She has not received any lorazepam today Continue [employer] protocol Continue IV Lorazepam as needed (5) Anemia Qualifiers: Anemia type: folate deficiency Folate deficiency anemia type: dietary Qualified Code(s): D52.0 - Dietary folate deficiency anemia Is this a current diagnosis for this admission?: Yes Plan: 2/2 alcoholism H/H stable No treatment indicated at this time Stool negative for occult blood Iron studies reviewed Monitor (6) Hypertension Qualifiers: Hypertension type: essential hypertension Qualified Code(s): I10 - Essential (primary) hypertension Is this a current diagnosis for this admission?: Yes Plan: BP above goal Beta-donis dose increased Patient is now back on p.o. diltiazem Restart HCTZ 5 mg p.o. daily (7) Dyslipidemia Is this a current diagnosis for this admission?: Yes Plan: Continue atorvastatin 20 mg p.o. daily at bedtime (8) Hypothyroidism Qualifiers: Hypothyroidism type: acquired Qualified Code(s): E03.9 - Hypothyroidism, unspecified Is this a current diagnosis for this admission?: Yes Plan: TSH 3.23 Continue levothyroxine 88 mcg p.o. daily (9) GERD (gastroesophageal reflux disease) Is this a current diagnosis for this admission?: Yes Plan: Continue omeprazole 40 mg p.o. daily - Time Time Spent with patient: 25-34 minutes Medications reviewed and adjusted accordingly: Yes Anticipated Discharge Disposition: Home, Self Care Anticipated Discharge Timeframe: Unable to determine at this time
[2019-09-25] MEDS: CEFTRIAXONE 2 GM/D5W RTU 2 GM/50 ML RTUPB IV SCH (16:00)
[2019-09-25] MEDS: NORMAL SALINE 1000 ML 1,000 ML IV PRN (16:02)
[2019-09-25] MEDS: DOXYCYCLINE HYCLATE 100 MG in DEXTROSE 5%-WATER 250 ML IV SCH (18:21)
[2019-09-25] MEDS: ATORVASTATIN CALCIUM 20 MG TABLET PO SCH (21:16)
[2019-09-25] MEDS: VENLAFAXINE HCL 37.5 MG CAP.SR.24H PO SCH (21:16)
[2019-09-25] MEDS: LORAZEPAM INJ 2 MG/1 ML VIAL IV PRN (21:57)
[2019-09-26] MEDS: LEVOTHYROXINE SODIUM 0.088 MG TABLET PO SCH (05:23)
[2019-09-26] MEDS: DOXYCYCLINE HYCLATE 100 MG in DEXTROSE 5%-WATER 250 ML IV SCH ×2 (05:24→17:09)
[2019-09-26 07:34] LABS: ANION GAP 8 (5-19); BLOOD UREA NITROGEN 8 mg/dL (7-20); CALCIUM 7.2 mg/dL (8.4-10.2); CARBON DIOXIDE 22 mmol/L (22-30); CHLORIDE 103 mmol/L (98-107); GLUCOSE 113 mg/dL (75-110); POTASSIUM 3.4 mmol/L (3.6-5.0)
[2019-09-26] MEDS: PANTOPRAZOLE SODIUM 40 MG TABLET.DR PO SCH (08:53)
[2019-09-26] MEDS: CALCIUM CARBONATE 600 MG/VITAMIN D3 400 UNIT TABLET PO SCH ×2 (10:56→17:09)
[2019-09-26] MEDS: METOPROLOL SUCCINATE 25 MG TAB.SR.24H PO SCH ×2 (10:56→21:30)
[2019-09-26] MEDS: APIXABAN 5 MG TABLET PO SCH ×2 (10:57→17:09)
[2019-09-26] MEDS: HYDROCHLOROTHIAZIDE 25 MG TABLET PO SCH (10:57)
[2019-09-26] MEDS: THIAMINE HCL 100 MG TABLET PO SCH (10:57)
[2019-09-26] MEDS: MULTIVITAMIN TABLET PO SCH (10:57)
[2019-09-26] MEDS: DILTIAZEM HCL 240 MG CAPSULE.CR PO SCH (11:00)
[2019-09-26] MEDS: FLUTICASONE/VILANTEROL 200-25 MCG/DOSE IH SCH (11:02)
[2019-09-26] MEDS ORDERED: POTASSIUM CHLORIDE 10 MEQ TABLET.ER PO ONE (12:00)
[2019-09-26] MEDS: LORAZEPAM INJ 2 MG/1 ML VIAL IV PRN ×2 (12:02→21:35)
[2019-09-26] MEDS: ACETAMINOPHEN 325 MG TABLET PO PRN (12:37)
--- NOTE | 2019-09-26 14:38 | PDOC PROGRESS REPORT ---
Subjective Progress Note for:: 09/26/19 Subjective:: Patient complains of right foot pain today. She states that during her last hospitalization she had an IV in that foot and it is been hurting since that time however, this is the first time she has mentioned this discomfort to me since being hospitalized Reason For Visit: ETOH WITHDRAWL, AFIB WITH RVR Physical Exam Vital Signs: Temp Pulse Resp BP Pulse Ox 98.1 F 89 31 H 132/95 H 98 09/26/19 11:32 09/26/19 11:32 09/26/19 11:32 09/26/19 11:32 09/26/19 11:32 Intake & Output 09/25/19 09/26/19 09/27/19 06:59 06:59 06:59 Intake Total 1372 1987 Output Total 600 1500 Balance 772 487 Weight 99.7 kg 100.9 kg General appearance: PRESENT: no acute distress, cooperative, morbidly obese Head exam: PRESENT: atraumatic, normocephalic Eye exam: PRESENT: conjunctiva pink Mouth exam: PRESENT: moist, tongue midline Neck exam: ABSENT: JVD Respiratory exam: PRESENT: decreased breath sounds - Air entry diminished to bases bilaterally, prolonged expiratory phas, symmetrical, unlabored. ABSENT: accessory muscle use, crackles, rales, retraction, rhonchi, wheezes Cardiovascular exam: PRESENT: irregular rhythm, +S1, +S2 Vascular exam: PRESENT: normal capillary refill, other - Right DP 2+, Right PT 1+/ Left DP 2+, Left PT 1-2+ GI/Abdominal exam: PRESENT: normal bowel sounds, soft. ABSENT: distended, tenderness Rectal exam: PRESENT: deferred Extremities exam: PRESENT: pedal edema - Trace to 1 mm pedal edema bilaterally, other - Right foot TTP over dorsal and plantar surfaces.. ABSENT: calf tenderness Neurological exam: PRESENT: alert, awake, oriented to person, oriented to place, oriented to time, oriented to situation, CN II-XII grossly intact Psychiatric exam: PRESENT: anxious, normal mood. ABSENT: agitated Skin exam: PRESENT: dry, normal color, warm Results Laboratory Results: 09/24/19 04:37 09/26/19 05:59 09/26/19 05:59 Sodium 132.8 L Potassium 3.4 L Chloride 103 Carbon Dioxide 22 Anion Gap 8 BUN 8 Creatinine 0.73 Est GFR ( Amer) > 60 Glucose 113 H Calcium 7.2 L 09/22/19 09/22/19 09/22/19 11:27 11:27 16:00 Creatine Kinase 118 CK-MB (CK-2) 1.27 Troponin I 0.019 0.023 09/22/19 09/23/19 23:24 04:54 Creatine Kinase CK-MB (CK-2) Troponin I 0.015 < 0.012 Impressions: Chest/Abdomen CTA 09/22/19 13:33 IMPRESSION: There is no pulmonary embolus. There is no aortic aneurysm or dissection. No acute findings in the thorax. Hepatic steatosis. Chest X-Ray 09/25/19 00:00 IMPRESSION: Right lower lobe pneumonia. Assessment and Plan - Diagnosis (1) Right lower lobe pneumonia Is this a current diagnosis for this admission?: Yes Plan: CXR reviewed from 09/25/2019 and reveals right lower lobe pneumonia Continue ceftriaxone 2 g IV every 24 hours Continue doxycycline 100 mg IV every 12 hours Add guaifenesin SR 600 mg p.o. every 12 hours Continue fluticasone/Vilanterol 200/25 mcg inhaled daily Add albuterol nebs every 4 hours as needed wheezing/SOB (2) Atrial fibrillation with RVR Is this a current diagnosis for this admission?: Yes Plan: Patient's atrial fibrillation is chronic and persistent HR improved with increased dose of metoprolol Continue diltiazem CD 240 mg p.o. daily Continue metoprolol succinate 37.5 mg p.o. every 12 hours Continue apixaban 5 mg p.o. twice daily (3) Alcohol abuse Is this a current diagnosis for this admission?: Yes Plan: Continue MVI 1 tab p.o. daily Continue thiamine 100 mg p.o. daily Patient's folic acid level > 20, folic acid supplement stopped (4) Alcohol withdrawal Qualifiers: Complication of substance-induced condition: with unspecified complication Qualified Code(s): F10.239 - Alcohol dependence with withdrawal, unspecified Is this a current diagnosis for this admission?: Yes Plan: Patient slightly anxious and tremulous at the time of exam Prior to exam patient had not received any lorazepam Request nurse to administer 1 mg lorazepam x1 Continue CIWA protocol Continue IV Lorazepam as needed (5) Anemia Qualifiers: Anemia type: folate deficiency Folate deficiency anemia type: dietary Qualified Code(s): D52.0 - Dietary folate deficiency anemia Is this a current diagnosis for this admission?: Yes Plan: 2/2 alcoholism H/H stable No treatment indicated at this time Stool negative for occult blood Iron studies reviewed Monitor (6) Hypertension Qualifiers: Hypertension type: essential hypertension Qualified Code(s): I10 - Essential (primary) hypertension Is this a current diagnosis for this admission?: Yes Plan: BP above goal Continue metoprolol as noted above Continue diltiazem as noted above Continue HCTZ 25 mg p.o. daily (7) Dyslipidemia Is this a current diagnosis for this admission?: Yes Plan: Continue atorvastatin 20 mg p.o. daily at bedtime (8) Hypothyroidism Qualifiers: Hypothyroidism type: acquired Qualified Code(s): E03.9 - Hypothyroidism, unspecified Is this a current diagnosis for this admission?: Yes Plan: TSH 3.23 Continue levothyroxine 88 mcg p.o. daily (9) GERD (gastroesophageal reflux disease) Is this a current diagnosis for this admission?: Yes Plan: Continue omeprazole 40 mg p.o. daily (10) Hypokalemia Is this a current diagnosis for this admission?: Yes Plan: Replete Check BMP in a.m. - Time Time Spent with patient: 25-34 minutes Medications reviewed and adjusted accordingly: Yes Anticipated Discharge Disposition: Home, Self Care Anticipated Discharge Timeframe: Unable to determine at this time
[2019-09-26] MEDS: CEFTRIAXONE 2 GM/D5W RTU 2 GM/50 ML RTUPB IV SCH (16:23)
[2019-09-26] MEDS ORDERED: HYDROCODONE/ACETAMINOPHEN 7.5-325 MG TABLET PO ONE (17:00)
[2019-09-26] MEDS: GUAIFENESIN 600 MG TABLET.SA PO SCH (21:30)
[2019-09-26] MEDS: ATORVASTATIN CALCIUM 20 MG TABLET PO SCH (21:30)
[2019-09-26] MEDS: VENLAFAXINE HCL 37.5 MG CAP.SR.24H PO SCH (21:30)
[2019-09-27] MEDS: NORMAL SALINE 1000 ML 1,000 ML IV PRN (01:13)
[2019-09-27] MEDS: DOXYCYCLINE HYCLATE 100 MG in DEXTROSE 5%-WATER 250 ML IV SCH ×2 (06:13→18:49)
[2019-09-27] MEDS: LEVOTHYROXINE SODIUM 0.088 MG TABLET PO SCH (06:14)
[2019-09-27 07:11] LABS: ABSOLUTE EOSINOPHILS # (AUTO) 0.4 10^3/uL (0.0-0.6); ABSOLUTE LYMPHOCYTES (AUTO) 1.8 10^3/uL (0.5-4.7); ABSOLUTE MONOCYTES (AUTO) 0.8 10^3/uL (0.1-1.4); ABSOLUTE NEUT (AUTO) 5.2 10^3/uL (1.7-8.2); BASOPHILS % (AUTO) 0.4 % (0-2); EOSINOPHILS % (AUTO) 4.7 % (0-6); HEMATOCRIT 30.1 % (36.0-47.0); HEMOGLOBIN 10.4 g/dL (12.0-15.5); LYMPHOCYTES % (AUTO) 22.1 % (13-45); MEAN CORPUSCULAR HEMOGLOBIN 32.4 pg (27.0-33.4); MEAN CORPUSCULAR HGB CONC 34.5 g/dL (32.0-36.0); MEAN CORPUSCULAR VOLUME 94 fl (80-97); MONOCYTES % (AUTO) 9.9 % (3-13); PLATELET COUNT 156 10^3/uL (150-450); RED CELL DISTRIBUTION WIDTH 14.4 % (11.5-14.0); SEGMENTED NEUTROPHILS % (AUTO) 62.9 % (42-78); TOTAL CELLS COUNTED % (AUTO) 100 %; WHITE BLOOD COUNT 8.3 10^3/uL (4.0-10.5)
[2019-09-27 07:34] LABS: ANION GAP 9 (5-19); BLOOD UREA NITROGEN 10 mg/dL (7-20); CALCIUM 7.6 mg/dL (8.4-10.2); CARBON DIOXIDE 23 mmol/L (22-30); CHLORIDE 103 mmol/L (98-107); GLUCOSE 98 mg/dL (75-110); POTASSIUM 3.6 mmol/L (3.6-5.0)
[2019-09-27] MEDS: ACETAMINOPHEN 325 MG TABLET PO PRN (08:36)
[2019-09-27] MEDS: PANTOPRAZOLE SODIUM 40 MG TABLET.DR PO SCH (08:37)
[2019-09-27] MEDS: FLUTICASONE/VILANTEROL 200-25 MCG/DOSE IH SCH (09:12)
[2019-09-27] MEDS: THIAMINE HCL 100 MG TABLET PO SCH (09:13)
[2019-09-27] MEDS: APIXABAN 5 MG TABLET PO SCH ×2 (09:13→18:18)
[2019-09-27] MEDS: MULTIVITAMIN TABLET PO SCH (09:13)
[2019-09-27] MEDS: GUAIFENESIN 600 MG TABLET.SA PO SCH ×2 (09:13→22:01)
[2019-09-27] MEDS: METOPROLOL SUCCINATE 25 MG TAB.SR.24H PO SCH ×2 (09:13→22:01)
[2019-09-27] MEDS: CALCIUM CARBONATE 600 MG/VITAMIN D3 400 UNIT TABLET PO SCH ×2 (09:13→18:19)
[2019-09-27] MEDS: HYDROCHLOROTHIAZIDE 25 MG TABLET PO SCH (09:13)
[2019-09-27] MEDS: DILTIAZEM HCL 240 MG CAPSULE.CR PO SCH (09:16)
[2019-09-27] MEDS ORDERED: MAGNESIUM SULFATE 4 GM/100 ML RTUPB IV ONE (09:30)
[2019-09-27] MEDS: ALBUTEROL SULFATE 0.042% NEB (1.25 MG/3 ML) AMPUL NEB PRN ×2 (11:40→16:14)
[2019-09-27] MEDS: CEFTRIAXONE 2 GM/D5W RTU 2 GM/50 ML RTUPB IV SCH (14:44)
--- NOTE | 2019-09-27 17:09 | RADIOLOGY REPORT (SQ) ---
EXAM DESCRIPTION: FOOT RIGHT COMPLETE IMAGES COMPLETED DATE/TIME: 09/27/2019 4:26 pm REASON FOR STUDY: right foot pain COMPARISON: None. NUMBER OF VIEWS: Three views. TECHNIQUE: AP, lateral and oblique radiographic images acquired of the right foot. LIMITATIONS: None. FINDINGS: MINERALIZATION: Normal. BONES: No fracture or dislocation. Prominent plantar calcaneal spur. JOINTS: No effusions. SOFT TISSUES: Dorsal soft tissue swelling. OTHER: No other significant finding. IMPRESSION: Calcaneal spur. Soft tissue swelling. No acute osseous finding. TECHNICAL DOCUMENTATION: JOB ID: [id number] [employer]- All Rights Reserved Reading location - IP/workstation name: [email or web address]
--- NOTE | 2019-09-27 17:45 | PDOC PROGRESS REPORT ---
Subjective Progress Note for:: 09/27/19 Subjective:: Continues to complain of right foot pain Reason For Visit: ETOH WITHDRAWL, AFIB WITH RVR Physical Exam Vital Signs: Temp Pulse Resp BP Pulse Ox 98.2 F 89 18 128/79 H 96 09/27/19 15:27 09/27/19 16:16 09/27/19 16:16 09/27/19 15:27 09/27/19 16:16 Intake & Output 09/26/19 09/27/19 09/28/19 06:59 06:59 06:59 Intake Total 1986 195 470 Output Total 1500 2450 Balance 487 -260 470 Weight 100.9 kg 99 kg General appearance: PRESENT: no acute distress, obese Head exam: PRESENT: atraumatic, normocephalic Eye exam: PRESENT: conjunctiva pink Mouth exam: PRESENT: moist, tongue midline Neck exam: ABSENT: JVD Respiratory exam: PRESENT: clear to auscultation thomas, symmetrical, unlabored. A BSENT: accessory muscle use Cardiovascular exam: PRESENT: irregular rhythm, +S1, +S2 Vascular exam: PRESENT: normal capillary refill GI/Abdominal exam: PRESENT: normal bowel sounds, soft. ABSENT: distended, tenderness Rectal exam: PRESENT: deferred Extremities exam: PRESENT: pedal edema, other - Right foot edematous. Generally TTP with no specific point tenderness. ABSENT: calf tenderness Neurological exam: PRESENT: alert, awake, oriented to person, oriented to place, oriented to time, oriented to situation, CN II-XII grossly intact Psychiatric exam: PRESENT: appropriate affect, normal mood. ABSENT: agitated, anxious Skin exam: PRESENT: dry, normal color, warm Results Laboratory Results: 09/27/19 06:30 09/27/19 06:30 09/27/19 09/27/19 06:30 06:30 WBC 8.3 RBC 3.20 L Hgb 10.4 L Hct 30.1 L MCV 94 MCH 32.4 MCHC 34.5 RDW 14.4 H Plt Count 156 Seg Neutrophils % 62.9 Sodium 134.5 L Potassium 3.6 Chloride 103 Carbon Dioxide 23 Anion Gap 9 BUN 10 Creatinine 0.75 Est GFR ( Amer) > 60 Glucose 98 Calcium 7.6 L Magnesium 0.7 L* 09/22/19 09/22/19 09/22/19 11:27 11:27 16:00 Creatine Kinase 118 CK-MB (CK-2) 1.27 Troponin I 0.019 0.023 09/22/19 09/23/19 23:24 04:54 Creatine Kinase CK-MB (CK-2) Troponin I 0.015 < 0.012 Impressions: Chest/Abdomen CTA 09/22/19 13:33 IMPRESSION: There is no pulmonary embolus. There is no aortic aneurysm or dissection. No acute findings in the thorax. Hepatic steatosis. Chest X-Ray 09/25/19 00:00 IMPRESSION: Right lower lobe pneumonia. Foot X-Ray 09/27/19 00:00 IMPRESSION: Calcaneal spur. Soft tissue swelling. No acute osseous finding. Assessment and Plan - Diagnosis (1) Right lower lobe pneumonia Is this a current diagnosis for this admission?: Yes Plan: Stop ceftriaxone Continue doxycycline 100 mg IV every 12 hours Order for blood culture was inadvertently not submitted, will send now Continue guaifenesin SR 600 mg p.o. every 12 hours Continue fluticasone/Vilanterol 200/25 mcg inhaled daily Continue albuterol nebs every 4 hours as needed wheezing/SOB Recheck CXR in a.m. (2) Atrial fibrillation with RVR Is this a current diagnosis for this admission?: Yes Plan: Patient's atrial fibrillation is chronic and persistent HR improved with increased dose of metoprolol Continue diltiazem CD 240 mg p.o. daily Continue metoprolol succinate 37.5 mg p.o. every 12 hours Continue apixaban 5 mg p.o. twice daily (3) Alcohol abuse Is this a current diagnosis for this admission?: Yes Plan: Continue MVI 1 tab p.o. daily Continue thiamine 100 mg p.o. daily Patient's folic acid level > 20, folic acid supplement stopped (4) Alcohol withdrawal Qualifiers: Complication of substance-induced condition: with unspecified complication Qualified Code(s): F10.239 - Alcohol dependence with withdrawal, unspecified Is this a current diagnosis for this admission?: Yes Plan: No sign of alcohol withdrawal Continue CIWA protocol Continue IV Lorazepam as needed (5) Anemia Qualifiers: Anemia type: folate deficiency Folate deficiency anemia type: dietary Qualified Code(s): D52.0 - Dietary folate deficiency anemia Is this a current diagnosis for this admission?: Yes Plan: 2/2 alcoholism H/H stable No treatment indicated at this time Stool negative for occult blood Iron studies reviewed Monitor (6) Hypertension Qualifiers: Hypertension type: essential hypertension Qualified Code(s): I10 - Essential (primary) hypertension Is this a current diagnosis for this admission?: Yes Plan: Adequate BP control Continue metoprolol as noted above Continue diltiazem as noted above Continue HCTZ 25 mg p.o. daily (7) Dyslipidemia Is this a current diagnosis for this admission?: Yes Plan: Continue atorvastatin 20 mg p.o. daily at bedtime (8) Hypothyroidism Qualifiers: Hypothyroidism type: acquired Qualified Code(s): E03.9 - Hypothyroidism, unspecified Is this a current diagnosis for this admission?: Yes Plan: TSH 3.23 Continue levothyroxine 88 mcg p.o. daily (9) GERD (gastroesophageal reflux disease) Is this a current diagnosis for this admission?: Yes Plan: Continue omeprazole 40 mg p.o. daily (10) Hypokalemia Is this a current diagnosis for this admission?: Yes Plan: Resolved Check BMP in a.m. (11) Hypomagnesemia Is this a current diagnosis for this admission?: Yes Plan: Replete with magnesium sulfate 4 g IV Recheck in a.m. - Time Time Spent with patient: 25-34 minutes Anticipated Discharge Disposition: Home, Self Care Anticipated Discharge Timeframe: Unable to determine at this time
--- NOTE | 2019-09-27 20:21 | Progress Note ---
Provider Note Provider Note: Right foot x-ray reviewed. No acute finding.
[2019-09-27] MEDS: VENLAFAXINE HCL 37.5 MG CAP.SR.24H PO SCH (22:01)
[2019-09-27] MEDS: ATORVASTATIN CALCIUM 20 MG TABLET PO SCH (22:01)
[2019-09-27] MEDS: LORAZEPAM INJ 2 MG/1 ML VIAL IV PRN (23:42)
[2019-09-28] MEDS: LORAZEPAM INJ 2 MG/1 ML VIAL IV PRN ×2 (02:12→21:14)
[2019-09-28] MEDS: DOXYCYCLINE HYCLATE 100 MG in DEXTROSE 5%-WATER 250 ML IV SCH (06:06)
[2019-09-28] MEDS: LEVOTHYROXINE SODIUM 0.088 MG TABLET PO SCH (06:07)
[2019-09-28 07:34] LABS: ANION GAP 7 (5-19); BLOOD UREA NITROGEN 9 mg/dL (7-20); CALCIUM 8.2 mg/dL (8.4-10.2); CARBON DIOXIDE 25 mmol/L (22-30); CHLORIDE 102 mmol/L (98-107); GLUCOSE 121 mg/dL (75-110); POTASSIUM 3.3 mmol/L (3.6-5.0)
[2019-09-28] MEDS: PANTOPRAZOLE SODIUM 40 MG TABLET.DR PO SCH (08:08)
[2019-09-28] MEDS: MAGNESIUM SULFATE/D5W 1 GM/100 ML RTUPB IV SCH ×2 (08:51→10:04)
[2019-09-28] MEDS ORDERED: POTASSIUM CHLORIDE 10 MEQ TABLET.ER PO ONE (09:00)
[2019-09-28] MEDS: FLUTICASONE/VILANTEROL 200-25 MCG/DOSE IH SCH (10:05)
[2019-09-28] MEDS: DILTIAZEM HCL 240 MG CAPSULE.CR PO SCH (10:05)
[2019-09-28] MEDS: METOPROLOL SUCCINATE 25 MG TAB.SR.24H PO SCH ×2 (10:05→21:08)
[2019-09-28] MEDS: APIXABAN 5 MG TABLET PO SCH ×2 (10:05→17:20)
[2019-09-28] MEDS: CALCIUM CARBONATE 600 MG/VITAMIN D3 400 UNIT TABLET PO SCH ×2 (10:05→21:08)
[2019-09-28] MEDS: GUAIFENESIN 600 MG TABLET.SA PO SCH ×2 (10:05→21:08)
[2019-09-28] MEDS: HYDROCHLOROTHIAZIDE 25 MG TABLET PO SCH (10:06)
[2019-09-28] MEDS: THIAMINE HCL 100 MG TABLET PO SCH (10:06)
[2019-09-28] MEDS: MULTIVITAMIN TABLET PO SCH (10:06)
--- NOTE | 2019-09-28 10:10 | RADIOLOGY REPORT (SQ) ---
EXAM DESCRIPTION: CHEST SINGLE VIEW IMAGES COMPLETED DATE/TIME: 09/28/2019 9:36 am REASON FOR STUDY: Pneumonia COMPARISON: 09/25/2019. EXAM PARAMETERS: NUMBER OF VIEWS: One view. TECHNIQUE: Single frontal radiographic view of the chest acquired. RADIATION DOSE: NA LIMITATIONS: None. FINDINGS: LUNGS AND PLEURA: Improved aeration. Right lower lobe airspace disease has almost complet azam cleared with minimal residual in the medial right lung base. Left lung clear. MEDIASTINUM AND HILAR STRUCTURES: No masses. Contour normal. HEART AND VASCULAR STRUCTURES: Heart normal in size. Normal vasculature. BONES: No acute findings. HARDWARE: None in the chest. OTHER: No other significant finding. IMPRESSION: IMPROVED APPEARANCE OF THE CHEST WITH ALMOST COMPLETE RESOLUTION OF THE RIGHT LUNG INFIL TRATE. TECHNICAL DOCUMENTATION: JOB ID: [id number] 2010 [employer]- All Rights Reserved Reading location - IP/workstation name: [email or web address]
--- NOTE | 2019-09-28 13:51 | PDOC PROGRESS REPORT ---
Subjective Progress Note for:: 09/28/19 Subjective:: 48 year old female with PMH significant for HTN, chronic A. fib, COPD, obesity, hypothyroidism, seizure disorder, recent COVID infection, and chronic alcohol dependence with frequent hospitalizations for alcohol withdrawal. In general, the patient is a poor historian. According to the patient in the ED notes the patient presented to the ED via EMS after she experienced shortness of breath at home. Of note, the patient admits to drinking a fifth of vodka daily, last drink was yesterday (06/21/2019). Upon arrival, EMS found the patient to be in Afib with RVR. A diltiazem drip was initiated which was continued and titrated in the emergency department. The patient underwent CTA of the chest and abdomen which did not reveal pulmonary embolism. Additionally, there was no significant aortic aneurysm or dissection. She was found to have hepatic steatosis. In the ED the patient received several doses of IV lorazepam and the hospitalist service was consulted to admit the patient for further evaluation and treatment. 09/24/19-No signs of EtOH withdrawal. No anxiety or agitation. Patient states that she feels "pretty well" 09/24-Patient complains of ongoing productive cough 09/25-Patient complains of right foot pain today. She states that during her last hospitalization she had an IV in that foot and it is been hurting since that time however, this is the first time she has mentioned this discomfort to me since being hospitalized 09/26-Continues to complain of right foot pain 09/28/2019-patient is comfortably in the bed sleeping. Not in distress. Nurses notified me that patient is still complaining of right foot pain. Plan is to do the CT of the right foot at this time. Patient is still tachycardic heart rate is around 100. Reason For Visit: ETOH WITHDRAWL, AFIB WITH RVR Physical Exam Vital Signs: Temp Pulse Resp BP Pulse Ox 97.8 F 88 16 128/84 H 94 09/28/19 11:23 09/28/19 11:23 09/28/19 11:23 09/28/19 11:23 09/28/19 11:23 Intake & Output 09/27/19 09/28/19 09/29/19 06:59 06:59 06:59 Intake Total 9354 2540 850 Output Total 2450 3550 Balance -496 -1010 850 Weight 99 kg 99.3 kg General appearance: PRESENT: no acute distress Head exam: PRESENT: atraumatic Eye exam: PRESENT: PERRLA Mouth exam: PRESENT: moist, tongue midline Teeth exam: PRESENT: poor dentation Neck exam: ABSENT: carotid bruit, JVD, lymphadenopathy, thyromegaly Respiratory exam: PRESENT: decreased breath sounds Pulses: PRESENT: normal dorsalis pedis pul GI/Abdominal exam: PRESENT: normal bowel sounds, soft. ABSENT: distended, guarding, mass, organolmegaly, rebound, tenderness Rectal exam: PRESENT: deferred Extremities exam: PRESENT: full ROM. ABSENT: calf tenderness, clubbing, pedal edema Neurological exam: PRESENT: alert, awake, oriented to person, oriented to place, oriented to time, oriented to situation, CN II-XII grossly intact. ABSENT: motor sensory deficit Psychiatric exam: PRESENT: appropriate affect, normal mood. ABSENT: homicidal ideation, suicidal ideation Results Laboratory Results: 09/27/19 06:30 09/28/19 06:35 09/28/19 06:35 Sodium 133.6 L Potassium 3.3 L Chloride 102 Carbon Dioxide 25 Anion Gap 7 BUN 9 Creatinine 0.82 Est GFR ( Amer) > 60 Glucose 121 H Calcium 8.2 L Magnesium 1.4 L 09/22/19 09/22/19 09/22/19 11:27 11:27 16:00 Creatine Kinase 118 CK-MB (CK-2) 1.27 Troponin I 0.019 0.023 09/22/19 09/23/19 23:24 04:54 Creatine Kinase CK-MB (CK-2) Troponin I 0.015 < 0.012 Impressions: Chest/Abdomen CTA 09/22/19 13:33 IMPRESSION: There is no pulmonary embolus. There is no aortic aneurysm or dissection. No acute findings in the thorax. Hepatic steatosis. Foot X-Ray 09/27/19 00:00 IMPRESSION: Calcaneal spur. Soft tissue swelling. No acute osseous finding. Chest X-Ray 09/28/19 06:00 IMPRESSION: IMPROVED APPEARANCE OF THE CHEST WITH ALMOST COMPLETE RESOLUTION OF THE RIGHT LUNG INFILTRATE. Assessment and Plan - Diagnosis (1) Right lower lobe pneumonia Is this a current diagnosis for this admission?: Yes Plan: Stop ceftriaxone Continue doxycycline 100 mg IV every 12 hours Order for blood culture was inadvertently not submitted, will send now Continue guaifenesin SR 600 mg p.o. every 12 hours Continue fluticasone/Vilanterol 200/25 mcg inhaled daily Continue albuterol nebs every 4 hours as needed wheezing/SOB Recheck CXR in a.m. 09/28/2019-chest x-ray this morning indicates complete resolution of the right lower lobe pneumonia. Patient is afebrile with a temp of 98.6. Cultures are n egative. Patient is presently on ceftriaxone and doxycycline. (2) Atrial fibrillation with RVR Is this a current diagnosis for this admission?: Yes Plan: Patient's atrial fibrillation is chronic and persistent HR improved with increased dose of metoprolol Continue diltiazem CD 240 mg p.o. daily Continue metoprolol succinate 37.5 mg p.o. every 12 hours Continue apixaban 5 mg p.o. twice daily 09/28/2019-patient has history of A. fib came in with A. fib with RVR. Presently on diltiazem for 20 mg p.o. daily, metoprolol 37.5 mg p.o. twice a day. Plan is to continue apixaban 5 mg p.o. twice a day at this time. Heart rate is around 100 this morning. Plan is to continue the present management at this morning. (3) Alcohol abuse Is this a current diagnosis for this admission?: Yes Plan: Continue MVI 1 tab p.o. daily Continue thiamine 100 mg p.o. daily Patient's folic acid level > 20, folic acid supplement stopped (4) Alcohol withdrawal Qualifiers: Complication of substance-induced condition: with unspecified complication Qualified Code(s): F10.239 - Alcohol dependence with withdrawal, unspecified Is this a current diagnosis for this admission?: Yes Plan: No sign of alcohol withdrawal Continue CIWA protocol Continue IV Lorazepam as needed (5) Anemia Qualifiers: Anemia type: folate deficiency Folate deficiency anemia type: dietary Qualified Code(s): D52.0 - Dietary folate deficiency anemia Is this a current diagnosis for this admission?: No Plan: 2/2 alcoholism H/H stable No treatment indicated at this time Stool negative for occult blood Iron studies reviewed Monitor 09/28/2019-latest hemoglobin is 10.4 stable. Plan is to continue to closely monitor the labs on daily basis. (6) Hypertension Qualifiers: Hypertension type: essential hypertension Qualified Code(s): I10 - Essential (primary) hypertension Is this a current diagnosis for this admission?: No Plan: Adequate BP control Continue metoprolol as noted above Continue diltiazem as noted above Continue HCTZ 25 mg p.o. daily 09/28/2019-blood pressure today is 140/90. Presently on metoprolol 37.5 mg p.o. twice a day, diltiazem 240 mg p.o. daily, hydrochlorothiazide 25 mg p.o. daily. Plan is to continue the present management at this time. (7) Hypomagnesemia Is this a current diagnosis for this admission?: Yes Plan: 09/28/2019 magnesium today is 1.4 to give 1 g of IV magnesium today. (8) Hypokalemia Is this a current diagnosis for this admission?: Yes Plan: 09/28/2019-serum potassium today 3.3 to continue to provide potassium supplementations on as needed basis. - Time Anticipated Discharge Disposition: Home, Self Care Anticipated Discharge Timeframe: within 72 hours
[2019-09-28] MEDS: CEFTRIAXONE 2 GM/D5W RTU 2 GM/50 ML RTUPB IV SCH (15:24)
--- NOTE | 2019-09-28 16:39 | RADIOLOGY REPORT (SQ) ---
EXAM DESCRIPTION: CT RT LOWER EXTREMITY WITHOUT IMAGES COMPLETED DATE/TIME: 09/28/2019 1:33 pm REASON FOR STUDY: rt foot pain and swelling COMPARISON: X-ray dated 09/27/2019. TECHNIQUE: Axial imaging performed through the right foot with reformatted coronal and sagittal imag ing windowed for bone and soft tissues. Images saved to PACS. 3D IMAGING: Were 3D images as MIP, SSD, or volume rendering performed at the work station? Yes. All CT scanners at this facility use dose modulation, iterative reconstruction, and/or weight based d osing when appropriate to reduce radiation dose to as low as reasonably achievable (ALARA). [facility]: Dose Right [facility]: CareDose [facility]: Dose Right [facility]: Teradose 4D [facility]: [employer] LIMITATIONS: None. RADIATION DOSE: CT Rad equipment meets quality standard of care and radiation dose reduction techniq ues were employed. CTDIvol: 4.6 mGy. DLP: 136 mGy-cm. mGy. FINDINGS: SOFT TISSUES: Diffuse mild edema throughout the subcutaneous fatty tissues. No abnormal f luid collection. BONES: No acute fracture. No dislocation. Plantar calcaneal spur. MINERALIZATION: Normal. OTHER: No other significant finding. IMPRESSION: DIFFUSE SUBCUTANEOUS SOFT TISSUE EDEMA. NO EVIDENCE OF ABSCESS. NO BONY FINDINGS. TECHNICAL DOCUMENTATION: JOB ID: [id number] Quality ID # [id number]: Final reports with documentation of one or more dose reduction techniques (e.g., Au tomated exposure control, adjustment of the mA and/or kV according to patient size, use of iterative reconstruction technique) 2010 [employer]- All Rights Reserved Reading location - IP/workstation name: [email or web address]
[2019-09-28] MEDS: DOXYCYCLINE HYCLATE 100 MG TABLET PO SCH (17:20)
[2019-09-28] MEDS: ATORVASTATIN CALCIUM 20 MG TABLET PO SCH (21:07)
[2019-09-28] MEDS: VENLAFAXINE HCL 37.5 MG CAP.SR.24H PO SCH (21:08)
[2019-09-28] MEDS: NORMAL SALINE 1000 ML 1,000 ML IV PRN (21:14)
[2019-09-29] MEDS: LEVOTHYROXINE SODIUM 0.088 MG TABLET PO SCH (05:45)
[2019-09-29] MEDS: DOXYCYCLINE HYCLATE 100 MG TABLET PO SCH ×2 (05:45→17:36)
[2019-09-29 06:44] LABS: ABSOLUTE BASOPHILS # (AUTO) 0.1 10^3/uL (0.0-0.2); ABSOLUTE EOSINOPHILS # (AUTO) 0.3 10^3/uL (0.0-0.6); ABSOLUTE LYMPHOCYTES (AUTO) 2.3 10^3/uL (0.5-4.7); ABSOLUTE NEUT (AUTO) 6.1 10^3/uL (1.7-8.2); BASOPHILS % (AUTO) 1.2 % (0-2); EOSINOPHILS % (AUTO) 3.5 % (0-6); HEMATOCRIT 31.9 % (36.0-47.0); MEAN CORPUSCULAR HEMOGLOBIN 32.5 pg (27.0-33.4); MEAN CORPUSCULAR HGB CONC 34.5 g/dL (32.0-36.0); MEAN CORPUSCULAR VOLUME 94 fl (80-97); PLATELET COUNT 231 10^3/uL (150-450); RED CELL DISTRIBUTION WIDTH 14.7 % (11.5-14.0); SEGMENTED NEUTROPHILS % (AUTO) 62.3 % (42-78); TOTAL CELLS COUNTED % (AUTO) 100 %; WHITE BLOOD COUNT 9.8 10^3/uL (4.0-10.5)
[2019-09-29 06:59] LABS: ALBUMIN 3.4 g/dL (3.5-5.0); ALKALINE PHOSPHATASE 66 U/L (38-126); ANION GAP 8 (5-19); ASPARTATE AMINO TRANSFERASE 17 U/L (14-36); BILIRUBIN,DIRECT 0.1 mg/dL (0.0-0.4); BILIRUBIN,TOTAL 0.4 mg/dL (0.2-1.3); BLOOD UREA NITROGEN 13 mg/dL (7-20); CALCIUM 9.2 mg/dL (8.4-10.2); CARBON DIOXIDE 25 mmol/L (22-30); CHLORIDE 104 mmol/L (98-107); GLUCOSE 108 mg/dL (75-110); TOTAL PROTEIN 6.9 g/dL (6.3-8.2)
[2019-09-29] MEDS: MAGNESIUM SULFATE/D5W 1 GM/100 ML RTUPB IV SCH ×2 (10:20→13:07)
[2019-09-29] MEDS: APIXABAN 5 MG TABLET PO SCH ×2 (10:20→17:36)
[2019-09-29] MEDS: METOPROLOL SUCCINATE 25 MG TAB.SR.24H PO SCH ×2 (10:20→21:27)
[2019-09-29] MEDS: GUAIFENESIN 600 MG TABLET.SA PO SCH ×2 (10:20→21:27)
[2019-09-29] MEDS: CALCIUM CARBONATE 600 MG/VITAMIN D3 400 UNIT TABLET PO SCH ×2 (10:21→19:31)
[2019-09-29] MEDS: MULTIVITAMIN TABLET PO SCH (10:21)
[2019-09-29] MEDS: THIAMINE HCL 100 MG TABLET PO SCH (10:22)
[2019-09-29] MEDS: HYDROCHLOROTHIAZIDE 25 MG TABLET PO SCH (10:22)
[2019-09-29] MEDS: PANTOPRAZOLE SODIUM 40 MG TABLET.DR PO SCH (10:22)
[2019-09-29] MEDS: DILTIAZEM HCL 240 MG CAPSULE.CR PO SCH (10:23)
[2019-09-29] MEDS: FLUTICASONE/VILANTEROL 200-25 MCG/DOSE IH SCH (10:27)
--- NOTE | 2019-09-29 11:12 | PDOC PROGRESS REPORT ---
Subjective Progress Note for:: 09/29/19 Subjective:: 48 year old female with PMH significant for HTN, chronic A. fib, COPD, obesity, hypothyroidism, seizure disorder, recent COVID infection, and chronic alcohol dependence with frequent hospitalizations for alcohol withdrawal. In general, the patient is a poor historian. According to the patient in the ED notes the patient presented to the ED via EMS after she experienced shortness of breath at home. Of note, the patient admits to drinking a fifth of vodka daily, last drink was yesterday (06/21/2019). Upon arrival, EMS found the patient to be in Afib with RVR. A diltiazem drip was initiated which was continued and titrated in the emergency department. The patient underwent CTA of the chest and abdomen which did not reveal pulmonary embolism. Additionally, there was no significant aortic aneurysm or dissection. She was found to have hepatic steatosis. In the ED the patient received several doses of IV lorazepam and the hospitalist service was consulted to admit the patient for further evaluation and treatment. 09/24/19-No signs of EtOH withdrawal. No anxiety or agitation. Patient states that she feels "pretty well" 09/24-Patient complains of ongoing productive cough 09/25-Patient complains of right foot pain today. She states that during her last hospitalization she had an IV in that foot and it is been hurting since that time however, this is the first time she has mentioned this discomfort to me since being hospitalized 09/26-Continues to complain of right foot pain 09/28/2019-patient is comfortably in the bed sleeping. Not in distress. Nurses notified me that patient is still complaining of right foot pain. Plan is to do the CT of the right foot at this time. Patient is still tachycardic heart rate is around 100. 09/29/19-patient is comfortably in the bed communicating well. She is homeless waiting for placement. CT of the right foot was done shows a soft tissue edema no fractures seen. Reason For Visit: ETOH WITHDRAWL, AFIB WITH RVR Physical Exam Vital Signs: Temp Pulse Resp BP Pulse Ox 99.5 F 92 20 150/106 H 94 09/29/19 08:25 09/29/19 08:25 09/29/19 08:25 09/29/19 08:25 09/29/19 08:25 Intake & Output 09/28/19 09/29/19 09/30/19 06:59 06:59 06:59 Intake Total 3540 2262 Output Total 3550 2680 Balance -10 -438 Weight 99.3 kg 98.9 kg General appearance: PRESENT: no acute distress, obese Head exam: PRESENT: atraumatic Eye exam: PRESENT: conjunctiva pink, PERRLA Ear exam: PRESENT: normal external ear exam Mouth exam: PRESENT: moist, tongue midline Neck exam: ABSENT: carotid bruit, JVD, lymphadenopathy, thyromegaly Respiratory exam: PRESENT: decreased breath sounds Cardiovascular exam: PRESENT: RRR. ABSENT: diastolic murmur, rubs, systolic murmur Pulses: PRESENT: normal dorsalis pedis pul GI/Abdominal exam: PRESENT: normal bowel sounds, soft. ABSENT: distended, guarding, mass, organolmegaly, rebound, tenderness Rectal exam: PRESENT: deferred Extremities exam: PRESENT: full ROM. ABSENT: calf tenderness, clubbing, pedal edema Neurological exam: PRESENT: alert, awake, oriented to person, oriented to place, oriented to time, oriented to situation, CN II-XII grossly intact. ABSENT: motor sensory deficit Psychiatric exam: PRESENT: appropriate affect, normal mood. ABSENT: homicidal ideation, suicidal ideation Results Laboratory Results: 09/29/19 06:13 09/29/19 06:13 09/29/19 09/29/19 06:13 06:13 WBC 9.8 RBC 3.40 L Hgb 11.0 L Hct 31.9 L MCV 94 MCH 32.5 MCHC 34.5 RDW 14.7 H Plt Count 231 Seg Neutrophils % 62.3 Sodium 136.7 L Potassium 4.0 Chloride 104 Carbon Dioxide 25 Anion Gap 8 BUN 13 Creatinine 0.91 Est GFR ( Amer) > 60 Glucose 108 Calcium 9.2 Magnesium 1.4 L Total Bilirubin 0.4 AST 17 Alkaline Phosphatase 66 Total Protein 6.9 Albumin 3.4 L 09/22/19 09/22/19 09/22/19 11:27 11:27 16:00 Creatine Kinase 118 CK-MB (CK-2) 1.27 Troponin I 0.019 0.023 09/22/19 09/23/19 23:24 04:54 Creatine Kinase CK-MB (CK-2) Troponin I 0.015 < 0.012 Impressions: Chest/Abdomen CTA 09/22/19 13:33 IMPRESSION: There is no pulmonary embolus. There is no aortic aneurysm or dissection. No acute findings in the thorax. Hepatic steatosis. Foot X-Ray 09/27/19 00:00 IMPRESSION: Calcaneal spur. Soft tissue swelling. No acute osseous finding. Lower Extremity CT 09/28/19 00:00 IMPRESSION: DIFFUSE SUBCUTANEOUS SOFT TISSUE EDEMA. NO EVIDENCE OF ABSCESS. NO BONY FINDINGS. Chest X-Ray 09/28/19 06:00 IMPRESSION: IMPROVED APPEARANCE OF THE CHEST WITH ALMOST COMPLETE RESOLUTION OF THE RIGHT LUNG INFILTRATE. Assessment and Plan - Diagnosis (1) Right lower lobe pneumonia Is this a current diagnosis for this admission?: Yes Plan: Stop ceftriaxone Continue doxycycline 100 mg IV every 12 hours Order for blood culture was inadvertently not submitted, will send now Continue guaifenesin SR 600 mg p.o. every 12 hours Continue fluticasone/Vilanterol 200/25 mcg inhaled daily Continue albuterol nebs every 4 hours as needed wheezing/SOB Recheck CXR in a.m. 09/28/2019-chest x-ray this morning indicates complete resolution of the right lower lobe pneumonia. Patient is afebrile with a temp of 98.6. Cultures are negative. Patient is presently on ceftriaxone and doxycycline. 09/21/2019-patient is afebrile, WBC count within normal limits. Cultures are nega tive so far. Patient is presently on IV Rocephin, doxycycline. Plan is to continue IV Rocephin from today. (2) Atrial fibrillation with RVR Is this a current diagnosis for this admission?: Yes Plan: Patient's atrial fibrillation is chronic and persistent HR improved with increased dose of metoprolol Continue diltiazem CD 240 mg p.o. daily Continue metoprolol succinate 37.5 mg p.o. every 12 hours Continue apixaban 5 mg p.o. twice daily 09/28/2019-patient has history of A. fib came in with A. fib with RVR. Presently on diltiazem for 240 mg p.o. daily, metoprolol 37.5 mg p.o. twice a day. Plan is to continue apixaban 5 mg p.o. twice a day at this time. Heart rate is around 100 this morning. Plan is to continue the present management at this morning. 09/29/2019-heart rate this morning is 92. Rate controlled. Presently on diltiazem 240 mg p.o. daily, metoprolol 37.5 milligrams p.o. twice daily. Plan is also to continue Eliquis at this time. (3) Alcohol abuse Is this a current diagnosis for this admission?: Yes Plan: Continue MVI 1 tab p.o. daily Continue thiamine 100 mg p.o. daily Patient's folic acid level > 20, folic acid supplement stopped 09/29/2019-patient has history of heavy alcohol use receiving multivitamins including thiamine and folic acid. Plan is to closely watch for DTs. (4) Alcohol withdrawal Qualifiers: Complication of substance-induced condition: with unspecified complication Qualified Code(s): F10.239 - Alcohol dependence with withdrawal, unspecified Is this a current diagnosis for this admission?: Yes Plan: No sign of alcohol withdrawal Continue CIWA protocol Continue IV Lorazepam as needed (5) Anemia Qualifiers: Anemia type: folate deficiency Folate deficiency anemia type: dietary Qualified Code(s): D52.0 - Dietary folate deficiency anemia Is this a current diagnosis for this admission?: No Plan: 2/2 alcoholism H/H stable No treatment indicated at this time Stool negative for occult blood Iron studies reviewed Monitor 09/28/2019-latest hemoglobin is 10.4 stable. Plan is to continue to closely monitor the labs on daily basis. 09/29/2019-latest hemoglobin is 11. Stable. (6) Hypertension Qualifiers: Hypertension type: essential hypertension Qualified Code(s): I10 - Essential (primary) hypertension Is this a current diagnosis for this admission?: No Plan: Adequate BP control Continue metoprolol as noted above Continue diltiazem as noted above Continue HCTZ 25 mg p.o. daily 09/28/2019-blood pressure today is 140/90. Presently on metoprolol 37.5 mg p.o. twice a day, diltiazem 240 mg p.o. daily, hydrochlorothiazide 25 mg p.o. daily. Plan is to continue the present management at this time. 09/29/2019-blood pressure today is 128/85. Stable. Plan is to continue the present management at this time. (7) Hypomagnesemia Is this a current diagnosis for this admission?: Yes Plan: 09/28/2019 magnesium today is 1.4 to give 1 g of IV magnesium today. 09/29/2019-serum magnesium today is 1.4 to give her 2 g of IV magnesium today. (8) Hypokalemia Is this a current diagnosis for this admission?: Yes Plan: 09/28/2019-serum potassium today 3.3 to continue to provide potassium supplementations on as needed basis. 09/29/2019-serum potassium is 4.0 hyperkalemia is resolved. - Time Anticipated Discharge Disposition: [facility] Anticipated Discharge Timeframe: within 72 hours
[2019-09-29] MEDS ORDERED: MAGNESIUM SULFATE/D5W 1 GM/100 ML RTUPB IV ONE (13:06)
[2019-09-29] MEDS: NORMAL SALINE 1000 ML 1,000 ML IV PRN (19:43)
[2019-09-29] MEDS: VENLAFAXINE HCL 37.5 MG CAP.SR.24H PO SCH (21:27)
[2019-09-29] MEDS: ATORVASTATIN CALCIUM 20 MG TABLET PO SCH (21:27)
[2019-09-30] MEDS: DOXYCYCLINE HYCLATE 100 MG TABLET PO SCH (05:54)
[2019-09-30] MEDS: LEVOTHYROXINE SODIUM 0.088 MG TABLET PO SCH (05:54)
[2019-09-30] MEDS: PANTOPRAZOLE SODIUM 40 MG TABLET.DR PO SCH (08:29)
[2019-09-30] MEDS: CALCIUM CARBONATE 600 MG/VITAMIN D3 400 UNIT TABLET PO SCH (08:29)
[2019-09-30 08:47] LABS: ABSOLUTE BASOPHILS # (AUTO) 0.1 10^3/uL (0.0-0.2); ABSOLUTE EOSINOPHILS # (AUTO) 0.3 10^3/uL (0.0-0.6); ABSOLUTE LYMPHOCYTES (AUTO) 2.4 10^3/uL (0.5-4.7); ABSOLUTE MONOCYTES (AUTO) 1.1 10^3/uL (0.1-1.4); ABSOLUTE NEUT (AUTO) 6.7 10^3/uL (1.7-8.2); BASOPHILS % (AUTO) 0.7 % (0-2); EOSINOPHILS % (AUTO) 3.1 % (0-6); HEMATOCRIT 32.9 % (36.0-47.0); LYMPHOCYTES % (AUTO) 22.2 % (13-45); MEAN CORPUSCULAR HEMOGLOBIN 31.5 pg (27.0-33.4); MEAN CORPUSCULAR HGB CONC 33.4 g/dL (32.0-36.0); MEAN CORPUSCULAR VOLUME 94 fl (80-97); MONOCYTES % (AUTO) 10.6 % (3-13); PLATELET COUNT 292 10^3/uL (150-450); RED BLOOD COUNT 3.49 10^6/uL (3.72-5.28); RED CELL DISTRIBUTION WIDTH 14.9 % (11.5-14.0); SEGMENTED NEUTROPHILS % (AUTO) 63.4 % (42-78); TOTAL CELLS COUNTED % (AUTO) 100 %; WHITE BLOOD COUNT 10.6 10^3/uL (4.0-10.5)
[2019-09-30 09:24] LABS: ALBUMIN 3.4 g/dL (3.5-5.0); ALKALINE PHOSPHATASE 71 U/L (38-126); ANION GAP 9 (5-19); ASPARTATE AMINO TRANSFERASE 24 U/L (14-36); BILIRUBIN,DIRECT 0.1 mg/dL (0.0-0.4); BILIRUBIN,TOTAL 0.4 mg/dL (0.2-1.3); BLOOD UREA NITROGEN 12 mg/dL (7-20); CALCIUM 9.1 mg/dL (8.4-10.2); CARBON DIOXIDE 24 mmol/L (22-30); CHLORIDE 102 mmol/L (98-107); GLUCOSE 98 mg/dL (75-110); POTASSIUM 4.2 mmol/L (3.6-5.0); TOTAL PROTEIN 6.9 g/dL (6.3-8.2)
[2019-09-30] MEDS: GUAIFENESIN 600 MG TABLET.SA PO SCH (10:01)
[2019-09-30] MEDS: APIXABAN 5 MG TABLET PO SCH (10:01)
[2019-09-30] MEDS: METOPROLOL SUCCINATE 25 MG TAB.SR.24H PO SCH (10:01)
[2019-09-30] MEDS: THIAMINE HCL 100 MG TABLET PO SCH (10:01)
[2019-09-30] MEDS: MULTIVITAMIN TABLET PO SCH (10:01)
[2019-09-30] MEDS: FLUTICASONE/VILANTEROL 200-25 MCG/DOSE IH SCH (10:01)
[2019-09-30] MEDS: DILTIAZEM HCL 240 MG CAPSULE.CR PO SCH (10:02)
[2019-09-30] MEDS: HYDROCHLOROTHIAZIDE 25 MG TABLET PO SCH (10:02)
[2019-09-30 11:17] VITALS: BP 128/80
--- NOTE | 2019-09-30 12:00 | PDOC DISCHARGE SUMMARY ---
Impression - Admit/DC Date/PCP Admission Date/Primary Care Provider: 09/22/19 17:17 BERNIE SAVAGE MD Discharge Date: 09/30/19 - Discharge Diagnosis (1) Right lower lobe pneumonia Is this a current diagnosis for this admission?: Yes (2) Atrial fibrillation with RVR Is this a current diagnosis for this admission?: Yes (3) Alcohol abuse Is this a current diagnosis for this admission?: Yes (4) Alcohol withdrawal Is this a current diagnosis for this admission?: Yes (5) Anemia Is this a current diagnosis for this admission?: No (6) Hypertension Is this a current diagnosis for this admission?: No (7) Hypomagnesemia Is this a current diagnosis for this admission?: Yes (8) Hypokalemia Is this a current diagnosis for this admission?: Yes - Assessment Summary: (1) Right lower lobe pneumonia Is this a current diagnosis for this admission?: Yes Plan: Stop ceftriaxone Continue doxycycline 100 mg IV every 12 hours Order for blood culture was inadvertently not submitted, will send now Continue guaifenesin SR 600 mg p.o. every 12 hours Continue fluticasone/Vilanterol 200/25 mcg inhaled daily Continue albuterol nebs every 4 hours as needed wheezing/SOB Recheck CXR in a.m. 09/28/2019-chest x-ray this morning indicates complete resolution of the right lower lobe pneumonia. Patient is afebrile with a temp of 98.6. Cultures are negative. Patient is presently on ceftriaxone and doxycycline. 09/29/2019-patient is afebrile, WBC count within normal limits. Cultures are negative so far. Patient is presently on IV Rocephin, doxycycline. Plan is to continue IV Rocephin from today. 09/30/2019-no acute events in the last 24 hours. Patient is afebrile. Patient is expressing desire to go home today. Counseling about cutting down alcohol intake is provided. pt was given a prescription for doxycycline 40 mg p.o. twice daily for 5 days. (2) Atrial fibrillation with RVR Is this a current diagnosis for this admission?: Yes Plan: Patient's atrial fibrillation is chronic and persistent HR improved with increased dose of metoprolol Continue diltiazem CD 240 mg p.o. daily Continue metoprolol succinate 37.5 mg p.o. every 12 hours Continue apixaban 5 mg p.o. twice daily 09/28/2019-patient has history of A. fib came in with A. fib with RVR. Presently on diltiazem for 240 mg p.o. daily, metoprolol 37.5 mg p.o. twice a day. Plan is to continue apixaban 5 mg p.o. twice a day at this time. Heart rate is around 100 this morning. Plan is to continue the present management at this morning. 09/29/2019-heart rate this morning is 92. Rate controlled. Presently on diltiazem 240 mg p.o. daily, metoprolol 37.5 milligrams p.o. twice daily. Plan is also to continue Eliquis at this time. 09/30/2019-patient's heart rate is 77. Came in with A. fib with RVR due to noncompliance with medications. Patient is advised to continue Eliquis, diltiazem, metoprolol at home. (3) Alcohol abuse Is this a current diagnosis for this admission?: Yes Plan: Continue MVI 1 tab p.o. daily Continue thiamine 100 mg p.o. daily Patient's folic acid level > 20, folic acid supplement stopped 09/29/2019-patient has history of heavy alcohol use receiving multivitamins including thiamine and folic acid. Plan is to closely watch for DTs. 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 Plan is to continue to closely monitor the labs on daily basis. 09/29/2019-latest hemoglobin is 11. Stable. (6) Hypertension Qualifiers: Hypertension type: essential hypertension Qualified Code(s): I10 - Essential (primary) hypertension Is this a current diagnosis for this admission?: No Plan: Adequate BP control Continue metoprolol as noted above Continue diltiazem as noted above Continue HCTZ 25 mg p.o. daily 09/28/2019-blood pressure today is 140/90. Presently on metoprolol 37.5 mg p.o. twice a day, diltiazem 240 mg p.o. daily, hydrochlorothiazide 25 mg p.o. daily. Plan is to continue the present management at this time. 09/29/2019-blood pressure today is 128/85. Stable. Plan is to continue the present management at this time. 09/30/2019-blood pressure today is 134/87. Stable. Patient is advised to be compliant with her medications. (7) Hypomagnesemia Is this a current diagnosis for this admission?: Yes Plan: 09/28/2019 magnesium today is 1.4 to give 1 g of IV magnesium today. 09/29/2019-serum magnesium today is 1.4 to give her 2 g of IV magnesium today. (8) Hypokalemia Is this a current diagnosis for this admission?: Yes Plan: 09/28/2019-serum potassium today 3.3 to continue to provide potassium supplementations on as needed basis. 09/29/2019-serum potassium is 4.0 hyperkalemia is resolved. - Additional Information Discharge Diet: Cardiac Discharge Activity: Activity As Tolerated Referrals: BERNIE SAVAGE MD [Primary Care Provider] - 10/07/19 1:15 pm Prescriptions: Doxycycline Hyclate [Vibramycin 100 mg Tablet] 100 mg PO Q12A 10 Days #5 tablet Home Medications: Albuterol Sulfate [Proair HFA Inhalation Aerosol 8.5 gm MDI] 2 puff IH Q4HP PRN 01/15/19 Levothyroxine Sodium 88 mcg PO Q6AM 01/15/19 Fluticasone Propion/Salmeterol [Wixela 250-50 Inhub] 1 each IH Q12 02/22/19 Apixaban [Eliquis 5 mg Tablet] 5 mg PO BID #30 tablet 02/26/19 Atorvastatin Calcium [Lipitor 20 mg Tablet] 20 mg PO QHS #15 tablet 02/26/19 Omeprazole 40 mg PO DAILY 03/01/19 Venlafaxine HCl ER [Effexor Xr 37.5 mg Cap.sr] 37.5 mg PO QHS 03/01/19 Diltiazem HCl [Diltiazem 24Hr ER] 240 mg PO DAILY 03/12/19 Metoprolol Succinate [Toprol Xl 25 mg Tab.sr] 25 mg PO Q12 03/12/19 Hydrochlorothiazide [Hydrodiuril 25 mg Tablet] 25 mg PO DAILY 08/15/19 Potassium Chloride [K-Tab ER] 20 meq PO BID 08/15/19 Folic Acid [Folvite 1 mg Tablet] 1 mg PO DAILY #30 tablet 08/18/19 Thiamine HCl [Thiamine 100 mg Tablet] 100 mg PO DAILY #30 tablet 08/18/19 Apixaban [Eliquis 5 mg Tablet] 5 mg PO BID tablet 09/30/19 Doxycycline Hyclate [Vibramycin 100 mg Tablet] 100 mg PO Q12A 10 Days #5 tablet 09/30/19 History of Present Illiness History of Present Illness: FABIANA HEAD is a 48 year old female 48 year old female with PMH significant for HTN, chronic A. fib, COPD, obesity, hypothyroidism, seizure disorder, recent COVID infection, and chronic alcohol dependence with frequent hospitalizations for alcohol withdrawal. In general, the patient is a poor historian. According to the patient in the ED notes the patient presented to the ED via EMS after she experienced shortness of breath at home. Of note, the patient admits to drinking a fifth of vodka daily, last drink was yesterday (06/21/2019). Upon arrival, EMS found the patient to be in Afib with RVR. A diltiazem drip was initiated which was continued and titrated in the emergency department. The patient underwent CTA of the chest and abdomen which did not reveal pulmonary embolism. Additionally, there was no significant aortic aneurysm or dissection. She was found to have hepatic steatosis. In the ED the patient received several doses of IV lorazepam and the hospitalist service was consulted to admit the patient for further evaluation and treatment. Hospital Course Hospital Course: 48 year old female with PMH significant for HTN, chronic A. fib, COPD, obesity, hypothyroidism, seizure disorder, recent COVID infection, and chronic alcohol dependence with frequent hospitalizations for alcohol withdrawal. In general, the patient is a poor historian. According to the patient in the ED notes the patient presented to the ED via EMS after she experienced shortness of breath at home. Of note, the patient admits to drinking a fifth of vodka daily, last drink was yesterday (06/21/2019). Upon arrival, EMS found the patient to be in Afib with RVR. A diltiazem drip was initiated which was continued and titrated in the emergency department. The patient underwent CTA of the chest and abdomen which did not reveal pulmonary embolism. Additionally, there was no significant aortic aneurysm or dissection. She was found to have hepatic steatosis. In the ED the patient received several doses of IV lorazepam and the hospitalist service was consulted to admit the patient for further evaluation and treatment. 09/24/19-No signs of EtOH withdrawal. No anxiety or agitation. Patient states that she feels "pretty well" 09/24-Patient complains of ongoing productive cough 09/25-Patient complains of right foot pain today. She states that during her last hospitalization she had an IV in that foot and it is been hurting since that time however, this is the first time she has mentioned this discomfort to me since being hospitalized 09/26-Continues to complain of right foot pain 09/28/2019-patient is comfortably in the bed sleeping. Not in distress. Nurses notified me that patient is still complaining of right foot pain. Plan is to do the CT of the right foot at this time. Patient is still tachycardic heart rate is around 100. 09/29/19-patient is comfortably in the bed communicating well. She is homeless waiting for placement. CT of the right foot was done shows a soft tissue edema no fractures seen. 09/30/2019-patient is comfortably in the bed not in distress. Doing well. Expressing desire to go home. Counseling was provided about cut down alcohol intake. Physical Exam Vital Signs: Temp Pulse Resp BP Pulse Ox 99.7 F 94 20 128/80 H 97 09/30/19 11:12 09/30/19 11:12 09/30/19 11:12 09/30/19 11:12 09/30/19 11:12 Intake & Output 09/29/19 09/30/19 10/01/19 06:59 06:59 06:59 Intake Total 2262 1082 Output Total 2700 5600 Balance -438 -3728 Weight 98.9 kg 98 kg General appearance: PRESENT: no acute distress, obese Head exam: PRESENT: atraumatic Eye exam: PRESENT: PERRLA Mouth exam: PRESENT: moist, tongue midline Neck exam: ABSENT: carotid bruit, JVD, lymphadenopathy, thyromegaly Respiratory exam: PRESENT: clear to auscultation thomas. ABSENT: rales, rhonchi, wheezes Cardiovascular exam: PRESENT: RRR. ABSENT: diastolic murmur, rubs, systolic murmur Pulses: PRESENT: normal dorsalis pedis pul GI/Abdominal exam: PRESENT: normal bowel sounds, soft. ABSENT: distended, guarding, mass, organolmegaly, rebound, tenderness Rectal exam: PRESENT: deferred Extremities exam: PRESENT: full ROM. ABSENT: calf tenderness, clubbing, pedal edema Neurological exam: PRESENT: alert, awake, oriented to person, oriented to place, oriented to time, oriented to situation, CN II-XII grossly intact. ABSENT: motor sensory deficit Psychiatric exam: PRESENT: appropriate affect, normal mood. ABSENT: homicidal ideation, suicidal ideation Results Laboratory Results: WBC 10.6 10^3/uL (4.0-10.5) H 09/30/19 08:00 RBC 3.49 10^6/uL (3.72-5.28) L 09/30/19 08:00 Hgb 11.0 g/dL (12.0-15.5) L 09/30/19 08:00 Hct 32.9 % (36.0-47.0) L 09/30/19 08:00 MCV 94 fl (80-97) 09/30/19 08:00 MCH 31.5 pg (27.0-33.4) 09/30/19 08:00 MCHC 33.4 g/dL (32.0-36.0) 09/30/19 08:00 RDW 14.9 % (11.5-14.0) H 09/30/19 08:00 Plt Count 292 10^3/uL (150-450) 09/30/19 08:00 Lymph % (Auto) 22.2 % (13-45) 09/30/19 08:00 [place] % (Auto) 10.6 % (3-13) 09/30/19 08:00 Eos % (Auto) 3.1 % (0-6) 09/30/19 08:00 Baso % (Auto) 0.7 % (0-2) 09/30/19 08:00 Reticulocyte # 0.038 10^6/uL (0.028-0.122) 09/24/19 04:37 Absolute Neuts (auto) 6.7 10^3/uL (1.7-8.2) 09/30/19 08:00 Absolute Lymphs (auto) 2.4 10^3/uL (0.5-4.7) 09/30/19 08:00 Absolute Monos (auto) 1.1 10^3/uL (0.1-1.4) 09/30/19 08:00 Absolute Eos (auto) 0.3 10^3/uL (0.0-0.6) 09/30/19 08:00 Absolute Basos (auto) 0.1 10^3/uL (0.0-0.2) 09/30/19 08:00 Seg Neutrophils % 63.4 % (42-78) 09/30/19 08:00 Retic Count (auto) 1.21 % (0.66-2.85) 09/24/19 04:37 PT 12.5 SEC (11.4-15.4) 09/22/19 11:27 INR 0.91 09/22/19 11:27 Sodium 135.4 mmol/L (137-145) L 09/30/19 08:00 Potassium 4.2 mmol/L (3.6-5.0) 09/30/19 08:00 Chloride 102 mmol/L (98-107) 09/30/19 08:00 Carbon Dioxide 24 mmol/L (22-30) 09/30/19 08:00 Anion Gap 9 (5-19) 09/30/19 08:00 BUN 12 mg/dL (7-20) 09/30/19 08:00 Creatinine 0.75 mg/dL (0.52-1.25) 09/30/19 08:00 Est GFR ( Amer) > 60 (>60) 09/30/19 08:00 Est GFR (MDRD) Non-Af > 60 (>60) 09/30/19 08:00 Glucose 98 mg/dL (75-110) 09/30/19 08:00 Calcium 9.1 mg/dL (8.4-10.2) 09/30/19 08:00 Magnesium 1.3 mg/dL (1.6-2.3) L 09/30/19 08:00 Iron 39.2 ug/dL (37-170) 09/24/19 04:37 TIBC 239 ug/dL (250-450) L 09/24/19 04:37 % Saturation 16 % 09/24/19 04:37 Ferritin 105.00 ng/mL (6.2-137.0) 09/24/19 04:37 Total Bilirubin 0.4 mg/dL (0.2-1.3) 09/30/19 08:00 Direct Bilirubin 0.1 mg/dL (0.0-0.4) 09/30/19 08:00 Neonat Total Bilirubin Not Reportable 09/30/19 08:00 Neonat Direct Bilirubin Not Reportable 09/30/19 08:00 Neonat Indirect Bili Not Reportable 09/30/19 08:00 AST 24 U/L (14-36) 09/30/19 08:00 ALT 15 U/L (<35) 09/30/19 08:00 Alkaline Phosphatase 71 U/L (38-126) 09/30/19 08:00 Creatine Kinase 118 U/L (30-135) 09/22/19 11:27 CK-MB (CK-2) 1.27 ng/mL (<4.55) 09/22/19 11:27 Troponin I < 0.012 ng/mL 09/23/19 04:54 Total Protein 6.9 g/dL (6.3-8.2) 09/30/19 08:00 Albumin 3.4 g/dL (3.5-5.0) L 09/30/19 08:00 Vitamin B12 924.0 pg/mL (239-931) 09/24/19 04:37 Folate > 20.00 ng/mL (>2.76) 09/24/19 04:37 TSH 3.23 uIU/mL (0.47-4.68) 09/23/19 04:54 Stool Occult Blood NEGATIVE (NEGATIVE) 09/24/19 21:17 COVID-19 Source NASOPHARYNGEAL 09/22/19 17:16 COVID-19 (CALVIN) NOT DETECTED 09/22/19 17:16 09/22/19 09/22/19 09/22/19 11:27 16:00 23:24 CK-MB (CK-2) 1.27 Troponin I 0.019 0.023 0.015 09/23/19 04:54 CK-MB (CK-2) Troponin I < 0.012 Impressions: Chest X-Ray 09/22/19 11:30 IMPRESSION: No evidence of acute cardiopulmonary abnormality. Chest/Abdomen CTA 09/22/19 13:33 IMPRESSION: There is no pulmonary embolus. There is no aortic aneurysm or dissection. No acute findings in the thorax. Hepatic steatosis. Chest X-Ray 09/25/19 00:00 IMPRESSION: Right lower lobe pneumonia. Foot X-Ray 09/27/19 00:00 IMPRESSION: Calcaneal spur. Soft tissue swelling. No acute osseous finding. Lower Extremity CT 09/28/19 00:00 IMPRESSION: DIFFUSE SUBCUTANEOUS SOFT TISSUE EDEMA. NO EVIDENCE OF ABSCESS. NO BONY FINDINGS. Chest X-Ray 09/28/19 06:00 IMPRESSION: IMPROVED APPEARANCE OF THE CHEST WITH ALMOST COMPLETE RESOLUTION OF THE RIGHT LUNG INFILTRATE. Plan Plan of Treatment: Patient is advised to follow-up with PCP next week and advised to join alcohol annonymous group Time Spent: Greater than 30 Minutes Stroke Is this a Stroke Patient?: No Acute Heart Failure - Is this a Heart Failure Patient?: No
== END 2019-09-30 11:43 | disposition home or self-care (01) | DRG 308 ==
LOC: ER 11:15 → EEVIPCON 11:15 → EH 17:17 → 3N 20:45 → 3S 09-25 00:04
PROVIDERS: ADMIT Hospitalist; ATTEND Internal Medicine
PROC: HZ2ZZZZ Detoxification Services for Substance Abuse Treatment (ICD-10-PCS; principal; 2019-09-22)
DX: I48.19 Other persistent atrial fibrillation (principal); J18.9 Pneumonia, unspecified organism; F10.239 Alcohol dependence with withdrawal, unspecified; J44.0 Chronic obstructive pulmonary disease with (acute) lower respiratory infection; Z68.41 Body mass index [BMI] 40.0-44.9, adult; I10 Essential (primary) hypertension; E83.42 Hypomagnesemia; E87.6 Hypokalemia; D52.0 Dietary folate deficiency anemia; E03.9 Hypothyroidism, unspecified; G40.909 Epilepsy, unspecified, not intractable, without status epilepticus; K21.9 Gastro-esophageal reflux disease without esophagitis; K76.0 Fatty (change of) liver, not elsewhere classified; E66.01 Morbid (severe) obesity due to excess calories; E78.5 Hyperlipidemia, unspecified; F31.9 Bipolar disorder, unspecified; E78.00 Pure hypercholesterolemia, unspecified; I25.2 Old myocardial infarction; Z11.59 Encounter for screening for other viral diseases; Z79.01 Long term (current) use of anticoagulants; Z79.899 Other long term (current) drug therapy; Z59.0 Homelessness; Z82.49 Family history of ischemic heart disease and other diseases of the circulatory system
CPT/HCPCS: 36415; 71045; 71275; 80048; 80053; 82272; 82550; 82553; 82607; 82728; 82746; 83540; 83550; 83735; 84443; 84484; 85025; 85027; 85045; 85610; 87040; 87635; 93005; 93010; 94640; 96361; 96374; 96375; 96376; 99285; C9803; J0696; J2060; J2405; J3475; J3490; J7030; J7060